=== PATIENT | female | born 1980 | race Caucasian/White ===

== ENCOUNTER → 2018-05-04 | Outpatient (CLI) | payer MEDICARE, MEDICAID ==
[~2018-05-04] MED LIST: CHLO500T2 PO; FERR-57 PO; GBPN300C PO; IBP600T1 PO; IBUP-30 PO; LEVO750T6 PO; MELO7.5T PO; OXYC-12 PO; PRM25T GT; PRM25T PO; [UNRECOGNIZED DRUG - OTHER]; mobic PO
--- NOTE | 2018-05-04 13:01 | Diagnostic Imaging Report ---
PROCEDURE: MRI lumbar spine. TECHNIQUE: Multiplanar, multisequence MRI of the lumbar spine was performed without contrast. INDICATION: Low back pain increasing in severity. Patient has had prior lumbar spine surgery. Comparison is made with prior lumbar spine MRI from 11/06/2014. Curvature and alignment of the lumbar spine is normal. Vertebral body heights are maintained. The marrow signal intensity is unremarkable. No geographic marrow lesion or acute compression fracture is detected. There is some degenerative disc disease at L4-L5 level with disc space narrowing and desiccation, similar to prior exam. The conus is unremarkable at the L1-L2 level. T12-L1: No central canal or neural foraminal stenosis is identified. L1-L2: Unremarkable. L2-L3: Unremarkable. L3-L4: There is some ligamentous thickening and mild annular bulging but no significant central canal or neural foraminal stenosis is identified. L4-L5: Degenerative facet changes are seen. There is annular bulging present. Central canal remains patent. A far lateral broad-based disc bulging on the right side does results in moderate neural foraminal narrowing. Left neural foramen is patent. L5-S1: Ligamentous thickening is present. Central canal is patent. Neural foramina are patent. Paraspinous tissues are unremarkable. IMPRESSION: Lumbar spondylosis. Right neural foraminal narrowing at L4-L5 level is seen, as described above. Overall appearance of the lumbar spine is very similar to the exam from 2015. Dictated by: Dictated on workstation # [id number]
== END ==
LOC: RAD 11:20
PROVIDERS: ATTEND Neurological Surgery
DX: M51.16 Intervertebral disc disorders with radiculopathy, lumbar region (principal); M47.26 Other spondylosis with radiculopathy, lumbar region; M99.73 Connective tissue and disc stenosis of intervertebral foramina of lumbar region
CPT/HCPCS: 72148

== ENCOUNTER → 2018-07-19 | Outpatient (CLI) | payer MEDICARE, MEDICAID ==
--- NOTE | 2018-07-19 13:53 | Diagnostic Imaging Report ---
EXAMINATION: Ultrasound of the right upper extremity, non-vascular. INDICATION: Subcutaneous nodule. COMPARISON: There are no prior studies available for comparison. FINDINGS: Reportedly, the patient has a palpable abnormality in the region of the right biceps. In this area, there is a suggestion of a 4.7 x 2.0 x 5.2 cm area of slightly altered echogenicity. I am not certain if this is related to a discrete abnormality or whether this is merely part of the biceps musculature. There is no increased vascularity in this area to suggest an inflammatory/infectious process or a neoplastic mass. If clinical concern regarding an underlying abnormality persists and further imaging is desired, then MRI would be recommended. IMPRESSION: There is a suggestion of a 4.7 x 2.0 x 5.2 cm area of altered echogenicity in the region of the patient's palpable mass. Considerations and recommendations as above. Dictated by: Dictated on workstation # [id number]
== END ==
LOC: RAD 11:15
PROVIDERS: ATTEND Nurse Practitioner Family
DX: R22.0 Localized swelling, mass and lump, head (principal)
CPT/HCPCS: 76881

== ENCOUNTER 2019-04-19 10:03 | Day surgery (SDC) | payer MEDICARE ==
[2019-04-19] VITALS (18 sets, daily range): BP systolic 94–172; BP diastolic 55–79
[~2019-04-19] VITALS: Ht 165.1 cm; Wt 93.4 kg
--- OUTSIDE RECORDS SUMMARY | 2019-04-19 10:20 | XMS REPORT | Clinical Summary ---
Author Author [facility] Organization [facility] Address Unknown Phone Unavailable Care Team Providers Care Wedger Name Role Phone Chris Enriquez Unavailable Unavailable Fantasma Kirkland MD Unavailable Josefina Mcmahan MD Unavailable Unavailable Fantasma Dixon DIRECTOR CONSUMER PCP Source Comments Some departments are not documenting in the electronic medical record. If you d o not see the information that you expected, contact Release of Information in [facility] [employer] Information Management department at [phone] for further assistan ce in locating additional records.[facility] Allergies Comments Active Allergy Reactions Severity Noted Date Latex RASH, EDEMA Medium 12/20/2015 Medications End Date Status Medication Sig Dispensed Refills Start Date Active levothyroxine (SYNTHROID) Take 112 mcg 0 25 mcg tablet by mouth daily 30 minutes before breakfast. Active gabapentin (NEURONTIN) Take 1 Tab by 150 Tab 5 600 mg tablet mouth four 6 times daily. 1 cap po tid and 2 cap po qhs Active lidocaine (LIDODERM) 5 % Apply 1 Patch 0 topical patch topically to affected area every 24 hours. Apply patch for 12 hours, then remove for 12 hours before repeating. Active omeprazole DR(+) Take 20 mg by 0 (PRILOSEC) 20 mg capsule mouth daily before breakfast. Active cholecalciferol (VITAMIN Take 1,000 0 D-3) 1,000 units tablet Units by mouth daily. Active senna/docusate Take 1 Tab by 0 (SENOKOT-S) 8.6/50 mg mouth twice 7 tablet daily. As needed to avoid constipation while on pain medication, may use any of the over the counter bowel medications Active HYDROcodone/acetaminophen Take 1 tablet 0 (NORCO) 5/325 mg tablet by mouth as Needed for Pain Active baclofen (LIORESAL) 10 mg Take 10 mg by 0 tablet mouth three times daily. Active diazePAM (VALIUM) 5 mg Take 1 tablet 2 tablet 0 tabletIndications: by mouth As 8 Chronic low back pain Prescribed with sciatica, sciatica (Deodorizer Operator from laterality unspecified, Rx) for 999 unspecified back pain doses. Take laterality, one tab prior Claustrophobia to MRI and one tab on arrival for MRI. Active promethazine (PHENERGAN) Take 25 mg by 0 25 mg tablet mouth every 6 hours as needed for Nausea or Vomiting. 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 L ast Assessment & Plan: - Encourgaed for elbow protection. - OT evaluation. Right leg pain 12/20/2015 Overview: - Right leg pain and numbness from lower back down to toes. She had lots of give away weakness. Her right leg weakness can be secondary from pain. She had L4-L5 laminectomy in 03/2015. Sensory changes in her right leg but no increase in reflexes. - MRI L Spine on 07/19: Prior L4-L5 laminectomy with mild right neuroforaminal stenosis and no significant central spinal stenosis. Otherwise, no high-grade stenosis identified. Last Assessment & Plan: - Neurosurgery referral for further eval. - Will increase gabapentin as mentioned. - continue physical therapy for gait and balance. - If needed, will consider referral to our pain clinic. Neck and shoulder pain 12/20/2015 Overview: - She has neck pain radiating in both of her arms. Associated with numbness in lateral aspect of arm, forearm and in last two fingers. - EMG/NCS 03/19: cervical radiculopathy, worse on C6. - MRI 07/19: showed C6-C7 left inferior paracentral disc extrusion, abutting the left C7 nerve in towards the neural foramen, and extending into the left neural foramina resulting in significant left foraminal stenosis. Last Assessment & Plan: - Neurosurgery evaluation - Increase Gabapentin to [phone] from 900 TID - Physical Therapy. Numbness 12/20/2015 Overview: - She reports numbness in both shoulders goes down to T4 level on the back and chest. - No pain on chest. L ast Assessment & Plan: - continue to monitor for now. Cervicogenic headache 12/20/2015 Overview: She gets daily occipital headaches along with neck muscle tightness. L ast Assessment & Plan: - Management of cervical radiculopathy as above which is contributing to her headache as well. Fall 12/20/2015 Overview: She reports falling at home at least twice a week and not using any cane or walker. She has difficulty maintaining her gait and balance. L ast Assessment & Plan: Her falls can be secondary to her pain vs neuropathic changes vs combination of both. - Will start with work as mentioned above. - Physical therapy referral for gait, balance and strength training. Encounters Care Team Description Date Type Specialty Thien Ma DO Weakness of both upper extremities (Primary Dx); Bilateral leg weakness; Urinary incontinence, unspecified type; Cervicalgia; Chronic midline low back pain with bilateral sciatica 03/20/2019 Orders Only Neurology Thien Ma DO Bilateral arm weakness (Primary Dx); Bilateral leg weakness; Urinary incontinence, unspecified type; Cervicalgia; Chronic midline low back pain with bilateral sciatica 02/06/2019 Office Visit Neurology from Last 3 Months Family History Relation Name Status Comments Brother Alive Daughter Alive Daughter Alive Father Alive Mother Alive Sister Alive Social History Date Tobacco Use Types Packs/Day Years Used Quit: 10/04/2016 Former Smoker Cigarettes 1 15 Smokeless Tobacco: Never Used Drinks/Week oz/Week Comments Alcohol Use 0 Standard drinks or equivalent 0.0 No Hx Never Alcohol Habits Answer Date Recorded How often do you have a drink containing alcohol? Never 02/06/2019 How many drinks containing alcohol do you have on Not asked a typical day when you are drinking? How often do you have six or more drinks on one Not asked occasion? Sex Assigned at Date Recorded Not on file Industry Job Start Date Occupation Not on file Not on file Not on file Travel End Travel History Travel Start No recent travel history available. Last Filed Vital Signs Reading Time Taken Comments Vital Sign 125/45 02/06/2019 9:22 AM CDT Blood Pressure 81 02/06/2019 9:22 AM CDT Pulse 36.8 C (98.2 F) 02/06/2019 9:22 AM CDT Temperature 16 02/06/2019 9:22 AM CDT Respiratory Rate 97% 02/06/2019 9:22 AM CDT Oxygen Saturation - - Inhaled Oxygen Concentration 90.7 kg (200 lb) 02/06/2019 9:22 AM CDT Weight 165.1 cm (5' 5") 02/06/2019 9:22 AM CDT Height 33.28 02/06/2019 9:22 AM CDT Body Mass Index Plan of Treatment Health Maintenance Due Date Last Done Comments PHYSICAL (COMPREHENSIVE) 01/14/1987 EXAM HIV SCREENING 01/14/1995 DTAP/TDAP VACCINES (1 - 01/14/1998 Tdap) CERVICAL CANCER SCREENING 01/14/2010 INFLUENZA VACCINE 07/04/2019 Implants Device Identifier Shelf Expiration Date Model / Serial / Lot Implanted Type Area Manufactur er 11/03/2019 700-010 / [id number] / [id number] I-Factor Bone Graft Putty 1cc N/A: Spine [employer] Implanted: Qty: 1 on 01/04/2017 by [employer] Matti Gibbons MD at [facility] [id number] / [id number] / [id number] Matisse Acif Cage Peek [id number] 6deg N/A: Spine AccelSpine H6mm Cervical Implanted: Qty: 1 on 01/04/2017 by Matti Gibbons MD at [facility] [id number] / [id number] / [id number] Plate Cervical Van [place]ogh 1 Level, N/A: Spine AccelSpine 12mm Cervical Implanted: Qty: 1 on 01/04/2017 by Matti Gibbons MD at [facility] [id number] / [id number] / [id number] Screw Va Self Tapping [place]ogh 4.0 N/A: Spine AccelSpine X L12mm Cervical Implanted: Qty: 4 on 01/04/2017 by Matti Gibbons MD at [facility] Results Not on filefrom Last 3 Months Insurance Type Payer Benefit Subscriber ID Effective Phone Address Plan / Dates Group Medicare MEDICARE MEDICARE xxxxxxxxxxx 2017-P PART A AND resent B [place] 2019-P [place], [place] Advance Directives 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 needed
--- OUTSIDE RECORDS SUMMARY | 2019-04-19 10:20 | XMS REPORT | Encounter Summary ---
Author Author [facility] Organization [facility] Address Unknown Phone Unavailable Care Team Providers Care Ophthalmic Technician Name Role Phone Chris Enriquez Unavailable Unavailable Fantasma Kirkland MD Unavailable Josefina Mcmahan MD Unavailable Unavailable Fantasma Dixon ELECTROSLAG WELDING MACHINE OPERATOR PCP Reason for Referral * Pain Authorization (Routine) Referred By Contact Referred To Contact Status Reason Specialty Diagnoses / Procedures Thien Ma, [address] [facility] [place] [address] [facility] Neurology Cl [address] [address] Closed Neurology Diagnoses Weakness of both upper extremities Bilateral leg weakness Urinary incontinence, unspecified type Cervicalgia Chronic midline low back pain with bilateral sciatica P rocedures SPINE EMG PROCEDURE Encounter Details Care Team Description Date Type Department Thien Ma DO [address] [facility] [place] [address] [phone] Weakness of both upper extremities (Primary Dx); Bilateral leg weakness; Urinary incontinence, unspecified type; Cervicalgia; Chronic midline low back pain with bilateral sciatica 03/20/2019 Orders Only [facility] [address] [address] Social History Date Tobacco Use Types Packs/Day [...] Travel Start No recent travel history available. documented as of this encounter Functional Status Date of Assessment Functional Status Response 12/28/2017 Does the patient have a hearing impairment: No 12/28/2017 Does the patient have a visual impairment: Yes 12/28/2017 Does the patient have impaired ambulation: Yes 12/28/2017 Does the patient have an activity of daily living No (ADL) impairment: 12/28/2017 Does the patient have an instrumental activity of No daily living (IADL) impairment: Date of Assessment Cognitive Status Response 12/28/2017 Does the patient have a cognitive impairment: No documented as of this encounter Plan of Treatment Order Schedule Name Type Priority Associated Diagnoses Expected: 03/20/2019 (Approximate), Expires: 03/20/2020 SPINE EMG PROCEDURE Procedures Routine Weakness of both upper extremities Bilateral leg weakness Urinary incontinence, unspecified type Cervicalgia Chronic midline low back pain with bilateral sciatica documented as of this encounter Visit Diagnoses Diagnosis Weakness of both upper extremities - Primary Bilateral leg weakness Other musculoskeletal symptoms referable to limbs Urinary incontinence, unspecified type Cervicalgia Chronic midline low back pain with bilateral sciatica documented in this encounter
--- OUTSIDE RECORDS SUMMARY | 2019-04-19 10:20 | XMS REPORT | Encounter Summary ---
Author Author [facility] Organization [facility] Address Unknown Phone Unavailable Care Team Providers Care Company Laborer Name Role Phone Chris Enriquez Unavailable Unavailable Fantasma Kirkland MD Unavailable Josefina Mcmahan MD Unavailable Unavailable Fantasma Dixon SUPERVISOR ELECTRIC MOTOR TESTING PCP Reason for Referral * Radiology Services (Routine) Referred By Contact Referred To Contact Status Reason Specialty Diagnoses / Procedures Thien Ma DO [address] [facility] [place] [address] New Request Radiology Diagnoses Bilateral arm weakness Bilateral leg weakness Urinary incontinence, unspecified type Cervicalgia Chronic midline low back pain with bilateral sciatica P rocedures MRI L-SPINE WO CONTRAST * Radiology Services (Routine) Referred By Contact Referred To Contact Status Reason Specialty Diagnoses / Procedures Thien Ma DO [address] [facility] [place] [address] [facility] [address] [place] [address] No Auth Needed Radiology Diagnoses Bilateral arm weakness Bilateral leg weakness Urinary incontinence, unspecified type Cervicalgia Chronic midline low back pain with bilateral sciatica P rocedures MRI T-SPINE WO CONTRAST CHG MRI SPINAL CANAL LUMBAR W/O CONTRAST MATERIAL * Radiology Services (Routine) Referred By Contact Referred To Contact Status Reason Specialty Diagnoses / Procedures Thien Ma, [address] [facility] [place] [address] [facility] Mri [address] [place] [address] [place] [address] No Auth Needed Radiology Diagnoses Bilateral arm weakness Bilateral leg weakness Urinary incontinence, unspecified type Cervicalgia Chronic midline low back pain with bilateral sciatica P rocedures MRI C-SPINE WO CONTRAST * Consult, Test & Treat (Routine) Referred By Contact Referred To Contact Status Reason Specialty Diagnoses / Procedures Thien Ma DO [address] [facility] [place] [address] [facility] [address] [address] No Auth Needed Specialty Services Anesthesia Pain Diagnoses Required Bilateral arm weakness Bilateral leg weakness Urinary incontinence, unspecified type Cervicalgia Chronic midline low back pain with bilateral sciatica * Consult, Test & Treat (Routine) Referred By Contact Referred To Contact Status Reason Specialty Diagnoses / Procedures Thien Ma DO [address] [facility] [place] [address] [facility] [address] [facility] Level [address] [place] [address] Closed Specialty Services Urology Diagnoses Required Bilateral arm weakness Bilateral leg weakness Urinary incontinence, unspecified type Cervicalgia Chronic midline low back pain with bilateral sciatica * Pain Authorization (Routine) Referred By Contact Referred To Contact Status Reason Specialty Diagnoses / Procedures Thien Ma, [address] [facility] [place] [address] [facility] [address] [address] No Auth Needed Neurology Diagnoses Bilateral arm weakness Bilateral leg weakness Urinary incontinence, unspecified type Cervicalgia Chronic midline low back pain with bilateral sciatica P rocedures SPINE EMG PROCEDURE Reason for Visit * Reason Comments Back Pain radiates to BLE Numbness in BLE Weakness in BLE/falls Encounter Details Care Team Description Date Type Department Thien Ma, [address] [facility] [place] [address] [phone] Bilateral arm weakness (Primary Dx); Bilateral leg weakness; Urinary incontinence, unspecified type; Cervicalgia; Chronic midline low back pain with bilateral sciatica 02/06/2019 Office Visit [facility] [address] [address] Social History Date Tobacco Use Types Packs/Day [...] history available. documented as of this encounter Last Filed Vital Signs Reading Time Taken [...] 02/06/2019 9:22 AM CDT Body Mass Index documented in this encounter Functional Status Date of Assessment [...] impairment: No documented as of this encounter Patient Instructions * Patient Instructions* Ekaterina Berger RN - 02/06/2019 8:45 AM CDT Preparing for your exam: ? Please shower/bathe prior to your exam. Do not apply any creams, lotions or o ils to your skin after showering/bathing. ? Eat a normal meal prior to your exam. ? Time your pain medication so that you can take a dose prior to your exam. ? After the exam, you can resume all normal activities including driving. ? Please notify our office if you have a pacemaker or other implanted device. ? Please notify the doctor performing the test if you are taking Coumadin (warfa rin), Plavix, Aspirin or blood thinning medications, but do not stop any of thes e medications prior to the study unless specifically instructed. ? While a family, friend or caregiver may accompany you to the exam; they will n ot be permitted in the EMG room during testing. What you should know about your EMG and NCS: 1) Why are you having an EMG/NCS? Having an EMG/NCS performed can give further explanation to your doctor as to why you are experiencing; numbness, tingling, weakness or muscle cramping. The doctor performing your exam will determine whi ch test to do. 2) What does NCS show? NCS shows how well electrical signals are traveling to a nerve. This is done by applying small electrical shocks to the nerve and recor ding how the nerve works. The shocks cause a quick, mild tingling feeling. The doctor may test several nerves. 3) What happens during a needle EMG? A small, thin needle is put in several mus cles to see if there are any problems. There may be a small amount of pain when the needle is placed. A new needle is used with every patient. The doctor will only test the muscles necessary to decide what is wrong. The doctor will look & listen to the electronic signals traveling from the needle to the EMG machine. The doctor will then evaluate the results & report the findings to your referring doctor. 4) How long will the EMG/NCS take? When do I get my results? Plan roughly 45-60 min. for the exam. There are no lasting side effects from these exams. [facility] will receive the test results. Therefore, you will be contactin g his/hers office to discuss the results & your plan of care. The doctor will answer any additional questions you may have at the time of the exam. Thank you! documented in this encounter Progress Notes * Thien Ma, DO - 02/06/2019 8:45 AM CDT Date of Service: 02/06/2019 Subjective: Nasreen Silvestre is a 39 y.o. female. History of Present Illness She is a 39-year-old right-handed female referred by Dr. Matti Gibbons and Dr. Rush Dixon for neurologic evaluation for multiple complaints. She previously saw the neurology department in the residency clinic. She was la st seen by Dr. Enriquez in August 2016. She has a history of cervical fusion in 2015 and lumbar laminectomy in 2014. Pritesh segura claims to have been told by Dr. Gibbons that surgical intervention was unlikely to be helpful for her complaints. She describes a 5-year approximate history of low back and bilateral leg pain. Over the last 3 weeks it has been worse where there are times she feels she justin ot move her legs at night. This is worse if she is working throughout the day. It is equal in both legs. Most the time "I can just push myself through it". 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 Pain occurs sharply in the low back radiating to both h ips and down laterally into the legs and into the feet. This comes and goes. I s constant at night. There is numbness associated with it that she says is "ext john in the legs". The feet burn. There is no numbness in the chest abdomen or back reported. Pain grades 10/10 at worst. 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 She does no heavy lifting. She is readily able to sit and stand and accommodations have been made for her to do her job. She works about a 5-hour shift after which she feels pain in the back and legs worst in the evening. She also has had a 5-year or more history of chronic neck pain. It is worse wit h cough. She describes a cattle prod shooting down to both shoulders. Involves the arms and fingers of both hands particular the first and third fingers. 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 She has a hard time opening cans. Numbness and tingling happens in both arms n onspecifically down to the hands. She says also that there has been urinary incontinence since childhood. She den ies bowel incontinence. It happens about once or twice per day and she wears de pends. It has not changed over the past few years. She does not see a urologis t now. She had EMG and nerve conduction testing in 2016. It showed C5-C6 right cervica l radiculopathy. No radiculopathy or other abnormal neuromuscular process in th e leg was identified. She has done a lot of physical therapy. Last therapy was a year and a half ago. She continues to do the exercises. She tried gabapentin, lidocaine patch, baclofen, amitriptyline, Cymbalta and tra madol. Tramadol did not help. Cymbalta did not help. Amitriptyline led to nig ht terrors. Lumbar MRI from May 2018 from [facility] in [facility] read as lumbar spondylosis with right foraminal narrowing at L4-L5. Overall lumbar spin e similar to exam from 2015. Review of Systems Constitutional: Negative. HENT: Negative. Eyes: Negative. Respiratory: Negative. Cardiovascular: Positive for leg swelling. Gastrointestinal: Negative. Endocrine: Negative. Genitourinary: Negative. Musculoskeletal: Positive for arthralgias, back pain, gait problem, neck pain an d neck stiffness. Skin: Negative. Allergic/Immunologic: Negative. Neurological: Positive for numbness. Hematological: Negative. Psychiatric/Behavioral: Negative. Chief Complaint: Chief Complaint Patient presents with Back Pain radiates to BLE Numbness in BLE Weakness in BLE/falls Past Medical History: Medical History: Diagnosis Date GERD (gastroesophageal reflux disease) HTN (hypertension) in the past, no longer on meds Hypothyroid Surgical History: Surgical History: Procedure Laterality Date CERVICAL FUSION N/A 01/04/2017 ANTERIOR CERVICAL 6-7 FUSION performed by Matti Gibbons MD at [facility]/Periop APPENDECTOMY SECTION x2 CHOLECYSTECTOMY DILATION AND CURETTAGE x2 HX REMY AND BSO TONSILLECTOMY Social History: Social History Tobacco Use Smoking status: Former Smoker Packs/day: 1.00 Years: 15.00 Pack years: 15.00 Types: Cigarettes Last attempt to quit: 10/04/2016 Years since quittin.3 Smokeless tobacco: Never Used Substance Use Topics Alcohol use: Never Alcohol/week: 0.0 oz Frequency: Never Comment: No Hx Drug use: No Comment: No Hx Family History: Family History Family history unknown: Yes Allergies: Allergies Allergen Reactions Latex RASH and EDEMA Objective: baclofen (LIORESAL) 10 mg tablet Take 10 mg by mouth three times daily. cholecalciferol (VITAMIN D-3) 1,000 units tablet Take 1,000 Units by mouth d aily. diazePAM (VALIUM) 5 mg tablet Take 1 tablet by mouth As Prescribed (Plater Barrel from Rx) for 999 doses. Take one tab prior to MRI and one tab on arrival for MRI . gabapentin (NEURONTIN) 600 mg tablet Take 1 Tab by mouth four times daily. 1 cap po tid and 2 cap po qhs (Patient taking differently: Take 1 and 1/2 tablets by mouth twice daily and take 2 tablets at bedtime) HYDROcodone/acetaminophen (NORCO) 5/325 mg tablet Take 1 tablet by mouth as Needed for Pain levothyroxine (SYNTHROID) 25 mcg tablet Take 112 mcg by mouth daily 30 minut es before breakfast. lidocaine (LIDODERM) 5 % topical patch Apply 1 Patch topically to affected a edin every 24 hours. Apply patch for 12 hours, then remove for 12 hours before re peating. omeprazole DR(+) (PRILOSEC) 20 mg capsule Take 20 mg by mouth daily before b reakfast. promethazine (PHENERGAN) 25 mg tablet Take 25 mg by mouth every 6 hours as n eeded for Nausea or Vomiting. senna/docusate (SENOKOT-S) 8.6/50 mg tablet Take 1 Tab by mouth twice daily. As needed to avoid constipation while on pain medication, may use any of the ov er the counter bowel medications Vitals: 02/06/19 0922 BP: 125/45 Pulse: 81 Resp: 16 Temp: 36.8 C (98.2 F) TempSrc: Oral SpO2: 97% Weight: 90.7 kg (200 lb) Height: 165.1 cm (65") Body mass index is 33.28 kg/m. Female Opioid Risk Score: 1 (02/06/2019 9:00 AM) Opioid Risk Category: Low Risk (02/06/2019 9:00 AM) Is a controlled substance agreement on file? Not Applicable Physical Exam General: MG/WN/WD, ASA, affect, demeanor, attention and memory appropriate, calm , cooperative, follows commands, overall functional pattern to examination HEENT: NC/AT Cardiac: RRR without murmur Neck: supple Fundoscopy: clear, sharp disc margins, no papilledema Speech: fluent, no dysarthria or aphasia Mental status: Alert, oriented x 4, NAD CN: VFF without cut/hemianopsia, PERRL, EOMI without restriction or nystagmus, f acial sensation symmetric (V1-V3) to LT bilaterally, No facial droop or ptosis, hearing equal to FR, palatal rise symmetric, cough response intact and strong, s houlder shrug symmetric, tongue midline Motor: tone normal, no rigidity or spasticity in 4 limbs, no pronator drift of u pper extremities Strength: diffusely poor patient effort with prominent diffuse giveaway weakness - 01/05 SA/EF/EE/WE/WF/FA/HF/KE/DF/PF No involuntary movements, no tremor Sensation: PP globally decreased LLE comp. to right LE, symm in UEs, vibration 7 sec right GT, 12 sec left GT, possible T9/T10 level to PP in back DTRs, 2/2 in BR/B 1/1P/A, downgoing plantar reflexes bilaterally Coordination: normal FTN without dysmetria, normal finger tap, coordination norm al Gait: wide based, slow, cautious, functional, antalgic, no ataxia Assessment and Plan: 1. Bilateral upper and lower extremity weakness 2. Cervicalgia with question of cervical radiculopathy 3. Lumbago with bilateral leg pain/sciatica 4. Chronic urinary incontinence Plan: 1. She has a very functional and effort dependent/giveaway pattern exam. I am unsure to what extent neurological issues are present. 2. I suspect chronic pain issues are contributing to her overall presentation. 3. Because of incontinence weakness and question of sensory level, I ordered MR I cervical, thoracic and lumbar spine without LAURA. 4. I will do EMG/NCS BUE/BLE 5. Refer to urology for chronic urinary incontinence 6. Refer to anesthesia pain management. Chronic medical pain management may be necessary. 7. I considered group therapy for her but she claims to have hours away and reanna l not be able to participate here at spine center in [place]. 8. No change of medicine now. Continue gabapentin 900/900/1200 9. Check B12, MMA, TSH, CK, CBC and CMP 10. If neurologic change, instructed to call me straight away. Majority of her issues are chronic. She has had some intermittent worsening of leg strength dee bjectively over the past few weeks at this changes, she will let me know TONYA. 11. RTC next available EMG. Routine follow-up in about 3 to 4 months or as nee ded sooner Today, approximately 45 minutes was spent with her. Majority (more than 50%) wa s spent on patient diagnosis, discussion, education and answering questions.. documented in this encounter Plan of Treatment Order Schedule Name Type Priority Associated Diagnoses Ordered: 02/06/2019 SPINE EMG PROCEDURE Procedures Routine Bilateral arm weakness Bilateral leg weakness Urinary incontinence, unspecified type Cervicalgia Chronic midline low back pain with bilateral sciatica Expected: 02/06/2019 (Approximate), Expires: 02/07/2020 MRI C-SPINE WO CONTRAST Imaging Routine Bilateral arm weakness Bilateral leg weakness Urinary incontinence, unspecified type Cervicalgia Chronic midline low back pain with bilateral sciatica Expected: 02/06/2019 (Approximate), Expires: 02/07/2020 MRI T-SPINE WO CONTRAST Imaging Routine Bilateral arm weakness Bilateral leg weakness Urinary incontinence, unspecified type Cervicalgia Chronic midline low back pain with bilateral sciatica Expected: 02/06/2019 (Approximate), Expires: 02/07/2020 MRI L-SPINE WO CONTRAST Imaging Routine Bilateral arm weakness Bilateral leg weakness Urinary incontinence, unspecified type Cervicalgia Chronic midline low back pain with bilateral sciatica Expected: 02/06/2019 (Approximate), Expires: 02/07/2020 METHYLMALONIC ACID QUANT Lab Routine Bilateral arm weakness Bilateral leg weakness Urinary incontinence, unspecified type Cervicalgia Chronic midline low back pain with bilateral sciatica Expected: 02/06/2019 (Approximate), Expires: 02/07/2020 CBC Lab Routine Bilateral arm weakness Bilateral leg weakness Urinary incontinence, unspecified type Cervicalgia Chronic midline low back pain with bilateral sciatica Expected: 02/06/2019 (Approximate), Expires: 02/07/2020 COMPREHENSIVE METABOLIC Lab Routine Bilateral arm weakness PANEL Bilateral leg weakness Urinary incontinence, unspecified type Cervicalgia Chronic midline low back pain with bilateral sciatica Expected: 02/06/2019 (Approximate), Expires: 02/07/2020 VITAMIN B12 Lab Routine Bilateral arm weakness Bilateral leg weakness Urinary incontinence, unspecified type Cervicalgia Chronic midline low back pain with bilateral sciatica Expected: 02/06/2019 (Approximate), Expires: 02/07/2020 TSH WITH FREE T4 REFLEX Lab Routine Bilateral arm weakness Bilateral leg weakness Urinary incontinence, unspecified type Cervicalgia Chronic midline low back pain with bilateral sciatica Expected: 02/06/2019 (Approximate), Expires: 02/07/2020 CREATINE KINASE-CPK Lab Routine Bilateral arm weakness Bilateral leg weakness Urinary incontinence, unspecified type Cervicalgia Chronic midline low back pain with bilateral sciatica Order Schedule Name Type Priority Associated Diagnoses Ordered: 02/06/2019 AMB REFERRAL TO UROLOGY Outpatient Routine Bilateral arm weakness Referral Bilateral leg weakness Urinary incontinence, unspecified type Cervicalgia Chronic midline low back pain with bilateral sciatica Ordered: 02/06/2019 AMB REFERRAL TO PAIN Outpatient Routine Bilateral arm weakness CLINIC Referral Bilateral leg weakness Urinary incontinence, unspecified type Cervicalgia Chronic midline low back pain with bilateral sciatica documented as of this encounter Visit Diagnoses Diagnosis Bilateral arm weakness - Primary Other musculoskeletal symptoms referable to limbs Bilateral leg weakness Other musculoskeletal symptoms referable to limbs Urinary incontinence, unspecified type Cervicalgia Chronic midline low back pain with bilateral sciatica documented in this encounter
--- OUTSIDE RECORDS SUMMARY | 2019-04-19 10:21 | XMS REPORT ---
Author Author HILDA WOLF [facility] Address [address] [place] [address] Care Team Providers Care Caddy Name Role Phone HILDA WOLF Unavailable PROBLEMS Type Condition ICD9-CM Code [id number] Code Onset Dates Condition Status SNOMED Code Problem OCD (obsessive compulsive disorder) F42 Active 905232539 Problem Herniated nucleus pulposus M51.9 Active 79984506 Problem Acquired hypothyroidism E03.9 Active 815416046 Problem Anxiety F41.9 Active 61982943 Problem Cervicalgia M54.2 Active 62894891 Problem Moderate episode of recurrent major depressive disorder F33.1 Active 709967798 Problem Plantar fasciitis M72.2 Active 332986942 Problem Polyneuropathy G62.9 Active 20507477 ALLERGIES No Information ENCOUNTERS Encounter Location Date Diagnosis [id number] [place] [address] [id number] Mar, Polyneuropathy G62.9 ; Herniated nucleus pulposus M51.9 ; Moderate episode of recurrent major depressive disorder F33.1 and Acquired hypothyroidism E03.[address] [place] [address] [id number] Mar, Polyneuropathy G62.[address] [place] [address] [id number] February, Polyneuropathy G62.9 and Acquired hypothyroidism E03.[address] [place] [address] [id number] February, Cervicalgia M54.2 and Herniated nucleus pulposus M51.[address] [place] [address] [id number] February, [address] [place] [address] [id number] Jan, Polyneuropathy G62.9 [place] [id number] [place] [address] [id number] Dec, Herniated nucleus pulposus M51.9 [place] [id number] [place] [address] [id number] Dec, Long-term use of high-risk medication Z79.899 and Lumbar radiculopathy M54.16 [place] [id number] [place] [address] [id number] Nov, Polyneuropathy G62.9 ; Dermatitis L30.9 and Herniated nucleus pulposus M51.9 [place] [id number] [place] [address] [id number] Nov, [address] [id number] Oct, Herniated nucleus pulposus M51.9 [place] [id number] [place] [address] [id number] Oct, [address] [id number] Sep, [place] [id number] [place] [address] [id number] Sep, Herniated nucleus pulposus M51.9 and Acute cystitis with hematuria N30.01 [place] [id number] [place] [address] [id number] Aug, Herniated nucleus pulposus M51.9 [place] [id number] [place] [address] [id number] Jul, [place] [id number] [place] [address] [id number] Jul, Mass of right upper extremity R22.31 and Foreign body in right foot, initial encounter S90.851A [address] [id number] Jul, Foreign body in right foot, initial encounter S90.851A [place] [id number] [place] [address] [id number] Jul, Acquired hypothyroidism E03.[address] [id number] Jul, Moderate episode of recurrent major depressive disorder F33.1 ; Herniated nucleus pulposus M51.9 ; Cervicalgia M54.2 ; Polyneuropathy G62.9 and Acquired hypothyroidism E03.9 [facility] [id number] [place] [address] [id number] Jun, [facility] [address] [id number] Jun, Herniated nucleus pulposus M51.9 [facility] [id number] [place] [address] [id number] May, Herniated nucleus pulposus M51.9 [place] [address] [id number] Apr, Herniated nucleus pulposus M51.9 [place] [id number] [place] [address] [id number] Apr, [place] [address] [id number] Apr, Acquired hypothyroidism E03.9 [facility] [id number] [place] [address] [id number] Apr, Acquired hypothyroidism E03.9 [place] [address] [id number] Apr, [facility] [id number] [place] [address] [id number] Mar, Herniated nucleus pulposus M51.9 and Nodule, subcutaneous R22.9 [place] [id number] [place] [address] [id number] Mar, Herniated nucleus pulposus M51.9 [place] [id number] [place] [address] [id number] February, Herniated nucleus pulposus M51.9 ; Polyneuropathy G62.9 and Anxiety F41.9 [facility] [id number] [place] [address] [id number] Jan, Herniated nucleus pulposus M51.9 ; Moderate episode of recurrent major depressive disorder F33.1 and Acquired hypothyroidism E03.9 [place] [address] [address] [id number] [id number] Dec, Herniated nucleus pulposus M51.9 [facility] [id number] [place] [address] [id number] Nov, Cervicalgia M54.2 and Herniated nucleus pulposus M51.9 [facility] [id number] [place] [id number] Oct, Herniated nucleus pulposus M51.9 and OCD (obsessive compulsive disorder) F42 [facility] [address] [id number] [place] [id number] Oct, Herniated nucleus pulposus M51.9 [facility] [id number] [place] [address] [id number] Aug, Acquired hypothyroidism E03.9 [facility] [id number] [place] [address] [id number] Aug, Herniated nucleus pulposus M51.9 and Acquired hypothyroidism E03.9 [facility] [address] [id number] [address] Aug, [facility] [id number] [place] [address] [id number] Jul, Herniated nucleus pulposus M51.9 ; OCD (obsessive compulsive disorder) F42 and Pain of right upper extremity M79.601 [facility] [id number] [place] [id number] Jul, Anxiety F41.9 [facility] [id number] [place] [id number] Jul, [facility] [id number] [place] [id number] Jun, OCD (obsessive compulsive disorder) F42 ; Herniated nucleus pulposus M51.9 and Acute cystitis with hematuria N30.01 [facility] [id number] [place] [id number] 13 Jun, 2017 Anxiety F41.9 [facility] [id number] [place] [id number] 07 Jun, 2017 [facility] [id number] [place] [address] [id number] May, Acquired hypothyroidism E03.9 [facility] [id number] [place] [address] [id number] May, Polyneuropathy G62.9 ; OCD (obsessive compulsive disorder) F42 ; Herniated nucleus pulposus M51.9 ; Screening for lipid disorders Z13.220 ; Long-term use of high- risk medication Z79.899 and Major depressive disorder, recurrent, moderate F33.1 [facility] [address] [id number] [id number] May, Dental examination Z01.20 [facility] [id number] [place] [address] [id number] May, Herniated nucleus pulposus M51.9 [facility] [id number] [place] [address] [id number] May, Herniated nucleus pulposus M51.9 and Anxiety F41.9 [facility] [id number] [place] [address] [id number] Apr, Herniated nucleus pulposus M51.9 and Cervicalgia M54.2 [facility] [id number] [place] [address] [id number] Apr, Moderate episode of recurrent major depressive disorder F33.1 [facility] [id number] [place] [address] [id number] Apr, Herniated nucleus pulposus M51.9 [facility] [id number] [place] [address] [id number] Apr, Herniated nucleus pulposus M51.9 [facility] [id number] [place] [address] [id number] Mar, Moderate episode of recurrent major depressive disorder F33.1 [facility] [id number] [place] [address] [id number] Mar, Anxiety F41.9 [facility] [address] [id number] [place] [address] [id number] Mar, [facility] [id number] [place] [address] [id number] Mar, Herniated nucleus pulposus M51.9 and Cervicalgia M54.2 [facility] [id number] [place] [address] [id number] February, Acquired hypothyroidism E03.9 [facility] [id number] [place] [address] [id number] February, Polyneuropathy G62.9 ; Herniated nucleus pulposus M51.9 ; Cervicalgia M54.2 and Acquired hypothyroidism E03.9 [facility] [id number] [place] [address] [id number] Jan, [place] [id number] [place] [address] [id number] Jan, Cervicalgia M54.2 and Moderate episode of recurrent major depressive disorder F33.1 [place] [id number] [place] [address] [id number] Dec, Cervicalgia M54.2 and Herniated nucleus pulposus M51.9 [place] [id number] [place] [address] [id number] Nov, Lymph nodes enlarged R59.9 [address] [place] [address] [id number] Oct, Cervicalgia M54.2 [facility] [address]005[address], [place] [address] Sep, Polyneuropathy G62.[address] [place] [address] [id number] Sep, Cervicalgia M54.2 and Herniated nucleus pulposus M51.9 [address] [place] [address] [id number] Aug, Lumbar radiculopathy M54.16 and Spinal stenosis at L4-L5 level M48.[address] [place] [address] [id number] Aug, Cervicalgia M54.2 and Herniated nucleus pulposus M51.9 [address] [place] [address] [id number] Jul, [address] [place] [address] [id number] Jun, Cervicalgia M54.2 and Herniated nucleus pulposus M51.9 [facility] [id number] [place] [address] [id number] May, Plantar fasciitis M72.2 [facility] [id number] [place] [address] [id number] May, [place] [id number] [place] [address] [id number] Apr, Screening for lipid disorders Z13.220 ; Long-term use of high-risk medication Z79.899 and Major depressive disorder, recurrent, moderate F33.1 [facility] [id number] [place] [address] [id number] Apr, [place] [id number] [place] [address] [id number] Mar, Herniated nucleus pulposus M51.9 and Cervicalgia M54.2 [place] [id number] [place] [address] [id number] Mar, Cervicalgia M54.2 and Herniated nucleus pulposus M51.9 [place] [id number] [place] [address] [id number] February, [place] [id number] [place] [address] [id number] February, Cervicalgia M54.2 and Herniated nucleus pulposus M51.9 [place] [id number] [place] [address] [id number] Dec, Syncope, unspecified syncope type R55 [address] [place] [address] [id number] Dec, Cervicalgia M54.2 ; Herniated nucleus pulposus M51.9 and Moderate episode of recurrent major depressive disorder F33.1 [facility] [id number] [place] [address] [id number] Dec, [place] [id number] [place] [address] [id number] Dec, Herniated nucleus pulposus M51.9 and Cervicalgia M54.2 [facility] [id number] [place] [id number] Nov, [place] [id number] [place] [address] [id number] Nov, Herniated nucleus pulposus M51.9 and OCD (obsessive compulsive disorder) F42 [place] [id number] [place] [address] [id number] Sep, Displacement of intervertebral disc, site unspecified, without myelopathy 722.2 ; Cervicalgia 723.1 and Hypothyroidism, unspecified type E03.9 [facility] [id number] [place] [address] [id number] Sep, [place] [id number] [place] [address] [id number] Jun, Displacement of intervertebral disc, site unspecified, without myelopathy 722.2 and Cervicalgia 723.1 [place] [id number] [place] [address] [id number] Mar, Displacement of intervertebral disc, site unspecified, without myelopathy 722.2 and Shingles 053.9 [facility] [id number] [place] [address] [id number] February, Shingles 053.9 [place] [address] [id number] [place] [address] [id number] February, Displacement of intervertebral disc, site unspecified, without myelopathy 722.2 ; Tension headache 307.81 and Cervicalgia 723.1 [facility] [id number] [place] [address] [id number] February, [address] [place] [address] [id number] February, [place] [id number] [place] [address] [id number] February, [facility] [id number] [place] [address] Jan, [facility] [id number] [place] [address] Jan, [facility] [address] [id number] [place] [id number] Jan, [facility] [place] [facility] [address] [facility] [id number], [place] [address] Jan, [facility] [place] [facility] [address] [facility] [id number], [place] [address] Jan, [facility] [address] [facility] [id number] [place] [id number] Dec, [facility] [place] [facility] [address] [facility] [id number], [place] [address] Dec, [facility] [address] [facility] [id number] [place] [id number] Dec, [facility] [place] [facility] [address]00565[address], [place] [address] Dec, [facility] [address] [place] [id number] [place] [id number] Nov, [facility] [place] [facility] [address]005[address], [place] [address] Nov, [facility] [address] [facility] [id number] [place] [id number] Oct, [facility] [place] [facility] [address]005[address], [place] [address] Oct, [facility] [address] [facility] [id number] [place] [id number] Oct, [facility] [place] [facility] [address] [id number], [place] [address] Oct, [facility] [address] [facility] [id number] [place] [id number] Oct, [facility] [address] [facility] [id number] [place] [id number] Oct, [facility] [place] [facility] [address] [facility] [id number], [place] [address] Oct, [facility] [place] [facility] [address]005[address], [place] [address] Oct, [facility] [address] [id number] [place] [id number] Oct, [facility] [place] [facility] [address] [facility] [id number], [place] [address] Oct, [facility] [address] [facility] [id number] [place] [id number] Oct, [facility] [place] [facility] [address] [facility] [id number], [place] [address] Oct, [facility] [address] [id number] [place] [id number] Sep, [facility] [place] [facility] [address] [facility] [id number], [place] [address] Sep, [facility] [address] [facility] [id number] [place] [id number] Aug, [facility] [place] [facility] [address], [place] [address] Aug, [facility] [place] [facility] [address] [facility] [id number], [place] [address] Aug, [facility] [address] [facility] [id number] [place] [id number] Aug, [facility] [address] [facility] [id number] [place] [id number] Aug, [facility] [place] [facility] [address] [facility] [id number], [place] [address] Aug, [facility] [address] [facility] [id number] [place] [id number] Jul, [facility] [place] [facility] [address] [facility] [id number], [place] [address] Jul, [facility] [address] [facility] [id number] [place] [id number] Jul, [facility] [place] [facility] [address] [facility] [id number], [place] [address] Jul, [facility] [place] [facility] [address] [facility] [id number], [place] [address] Apr, [facility] [address] [id number] [place] [id number] Apr, [facility] [place] [facility] [address] [id number] [place] [address] Apr, [facility] [address] [id number] [place] [id number] Apr, [facility] [place] [facility] [address] [id number] [place] [address] Apr, [facility] [address] [id number] [place] [id number] Mar, [facility] [place] [facility] [address] [id number] [place] [address] Mar, [facility] [address] [id number] [place] [id number] Mar, [facility] [place] [facility] [address] [id number] [place] [address] Mar, [facility] [address] [id number] [place] [id number] February, [facility] [place] [facility] [address] [facility] [id number] [place] [address] February, [facility] [place] [facility] [address] [facility] [id number] [place] [address] February, [facility] [address] [id number] [place] [id number] February, [facility] [place] [facility] [address] [id number] [place] [address] February, [facility] [address] [id number] [place] [id number] February, [facility] [place] [facility] [address] [facility] [id number] [place] [address] February, [facility] [place] [facility] [address] [facility] [id number] [place] [address] Jan, [facility] [place] [facility] [address] [facility] [id number], [place] [address] Jan, [facility] [place] [facility] [address] [id number], [place] [address] Jan, [facility] [address] [facility] [id number] [place] [id number] Jan, [facility] [place] [facility] [address] [facility] [id number], [place] [address] Jan, [facility] [address] [facility] [id number] [place] [id number] Jan, [facility] [place] [facility] [address] [facility] [id number] [place] [address] Jan, [facility] [address] [facility] [id number] [place] [id number] Jan, [facility] [place] [facility] [address] [facility] [id number], [place] [address] Jan, [facility] [place] [facility] [address] [facility] [id number], [place] [address] Jan, [facility] [place] [facility] [address] [facility] [id number], [place] [address] Jan, [facility] [place] [facility] [address] [facility] [id number], [place] [address] Jan, [facility] [address] [facility] [id number] [place] [id number] Jan, [facility] [address] [facility] [id number] [place]SE[place] [id number] Jan, [facility] [place] [facility] [address] [facility] [id number], [place] [address] Jan, [facility] [address] [facility] [id number] [place] [id number] Jan, [facility] [place] [facility] [address] [facility] [id number], [place] [address] Jan, [facility] [address] [facility] [id number] [place] 196941169 Jan, [facility] [place] [facility] [address] [facility] [id number], [place] [address] Jan, [facility] [address] [facility] [id number] [place] [id number] Dec, [facility] [place] [facility] [address] [facility] [id number], [place] [address] Dec, [facility] [address] [facility] [id number] [place]SE[place] [id number] Dec, [facility] [place] [facility] [address] [facility] [id number], [place] [address] Dec, [facility] [address] [facility] [id number] [place] [id number] Dec, [facility] [place] [facility] [address] [facility] [id number], [place] [address] Dec, [facility] [address] [facility] [id number] [place] [id number] Dec, [facility] [place] [facility] [address] [facility] [id number], [place] [address] Dec, [facility] [address] [facility] [id number] [place] [id number] Nov, [facility] [place] [facility] [address] [id number], [place] [address] Nov, [facility] [address] [facility] [id number] [place] [id number] Nov, [facility] [place] [facility] [address] [facility] [id number], [place] [address] Nov, [facility] [address] [facility] [id number], [place] [address] Nov, [facility] [address] [facility] [id number], [place] [address] Nov, [facility] [address] [facility] [id number], [place] [address] Nov, [facility] [address] [facility] [id number], [place] [address] Nov, [facility] [address] [id number] [place] [id number] Oct, [facility] [address] [facility] [id number], [place] [address] Oct, [facility] [address] [facility] [id number], [place] [address] Oct, [facility] [address] [facility] [id number] [place] [id number] Oct, [facility] [address] [facility] [id number], [place] [address] Oct, [facility] [address] [facility] [id number] [place] [id number] Oct, [facility] [id number], [place] [address] Oct, [facility] [address] [facility] [id number] [place] [id number] Aug, [facility] [address] [id number], [place] [address] Aug, [facility] [address] [facility] [id number] [place] [id number] Jul, [facility] [address] [id number], [place] [address] Mar, [facility] [address] [id number] [place] [id number] Mar, [facility] [address] [facility] [id number], [place] [address] Mar, [facility] [address] [id number] [place] [id number] Jan, [facility] [address] [facility] [id number] [place] [id number] Sep, [facility] [address] [facility] [id number], [place] [address] Sep, [facility] [address] [id number] [place] [id number] May, [facility] [address] [facility] [id number] [place] [id number] Apr, [facility] [address] [id number] [place] [id number] Mar, [facility] [address] [id number] [place] [id number] Mar, [facility] [address] [id number] [place] [id number] February, [facility] [address] [id number] [place] [id number] Jan, [facility] [id number] [place] [address] Mar, [facility] [id number] [place] [address] Sep, [facility] [id number] [place] [address] Aug, [facility] [id number] [place] [id number] Aug, [facility] [id number] [place] [id number] Aug, [facility] [id number] [address] Aug, [facility] [id number] [place] [id number] Aug, [facility] [id number] [address] Jul, [facility] [id number] [place] [id number] Apr, IMMUNIZATIONS No Known Immunizations SOCIAL HISTORY Never Assessed REASON FOR VISIT PLAN OF CARE VITAL SIGNS MEDICATIONS No Known Medications RESULTS No Results PROCEDURES No Known procedures INSTRUCTIONS MEDICATIONS ADMINISTERED No Known Medications MEDICAL (GENERAL) HISTORY Type Description Date Medical History cardiovascular disease Medical History uterine fibroids Medical History shingles Medical History TIA -- 2009 Medical History thyroid disorder Medical History seizures Medical History depression Medical History anxiety Medical History chronic back pain Medical History Generalized hyperhidrosis Surgical History tonsillectomy age 14 Surgical History appendectomy 1999 Surgical History cholecystectomy 2007 Surgical History Blood transfusion with hysterectomy 2010 Surgical History dilatation and curettage x 2 1998, 2003 Surgical History hysterectomy, total with bilateral salpingo-oophorectomy (BSO) 2010 Surgical History laminectomy L4-L5 03/2015 Surgical History disc removed between C6-C7-had fusion 01/18 Hospitalization History childbirth, surgeries
--- OUTSIDE RECORDS SUMMARY | 2019-04-19 10:21 | XMS REPORT ---
Author Author HILDA WOLF [facility] Address [address] [place] [address] Care Team Providers Care Claim Examiner Name Role Phone HILDA WOLF Unavailable PROBLEMS Type Condition ICD9-CM Code HJU69-SE Code Onset Dates Condition Status SNOMED Code Problem OCD (obsessive compulsive disorder) F42 Active 771555864 Problem Herniated nucleus pulposus M51.9 Active 49517703 Problem Acquired hypothyroidism E03.9 Active 733532482 Problem Anxiety F41.9 Active 32660405 Problem Cervicalgia M54.2 Active 54625947 Problem Moderate episode of recurrent major depressive disorder F33.1 Active 414078467 Problem Plantar fasciitis M72.2 Active 137488780 Problem Polyneuropathy G62.9 Active 16209218 ALLERGIES No Information ENCOUNTERS Encounter Location Date Diagnosis [id number] [place] [id number] Apr, [address] [id number] Apr, Herniated nucleus pulposus M51.9 [place] [id number] [place] [address] [id number] Mar, Polyneuropathy G62.9 ; Herniated nucleus pulposus M51.9 ; Moderate episode of recurrent major depressive disorder F33.1 and Acquired hypothyroidism E03.[id number] [place] [address] [id number] Mar, Polyneuropathy G62.[address] [id number] February, Polyneuropathy G62.9 and Acquired hypothyroidism E03.9 [address] [place] [address] [id number] February, Cervicalgia M54.2 and Herniated nucleus pulposus M51.9 [place] [id number] [place] [address] [id number] February, [facility] [id number] [place] [address] [id number] Jan, Polyneuropathy G62.9 [facility] [id number] [place] [address] [id number] Dec, Herniated nucleus pulposus M51.9 [place] [id number] [place] [address] [id number] Dec, Long-term use of high-risk medication Z79.899 and Lumbar radiculopathy M54.16 [place] [address] [place] [id number] [place] [address] [id number] Nov, Polyneuropathy G62.9 ; Dermatitis L30.9 and Herniated nucleus pulposus M51.9 [place] [address] [place] [place] [id number] [place] [address] [id number] Nov, [facility] [id number] [place] [address] [id number] Oct, Herniated nucleus pulposus M51.9 [place] [id number] [place] [address] [id number] Oct, [place] [address] [place] [id number] [place] [address] [id number] Sep, [facility] [id number] [place] [address] [id number] Sep, Herniated nucleus pulposus M51.9 and Acute cystitis with hematuria N30.01 [facility] [id number] [place] [address] [id number] Aug, Herniated nucleus pulposus M51.9 [place] [address] [place] [id number] [place] [address] [id number] Jul, [place] [address] [id number] [place] [address] [id number] Jul, Mass of right upper extremity R22.31 and Foreign body in right foot, initial encounter S90.851A [place] [address] [id number] [place] [address] [id number] Jul, Foreign body in right foot, initial encounter S90.851A [facility] [address] [id number] Jul, Acquired hypothyroidism E03.9 [place] [address] [id number] Jul, Moderate episode of recurrent major depressive disorder F33.1 ; Herniated nucleus pulposus M51.9 ; Cervicalgia M54.2 ; Polyneuropathy G62.9 and Acquired hypothyroidism E03.9 [facility] [address] [id number] Jun, [address] [id number] Jun, Herniated nucleus pulposus M51.9 [place] [address] [id number] May, Herniated nucleus pulposus M51.[address] [id number] Apr, Herniated nucleus pulposus M51.9 [place] [address] [id number] [place] [address] [id number] Apr, [place] [address] [id number] Apr, Acquired hypothyroidism E03.9 [place] [address] [id number] [place] [address] [id number] Apr, Acquired hypothyroidism E03.[address] [id number] Apr, [place] [address] [id number] Mar, Herniated nucleus pulposus M51.9 and Nodule, subcutaneous R22.[address] [id number] Mar, Herniated nucleus pulposus M51.[address] [id number] February, Herniated nucleus pulposus M51.9 ; Polyneuropathy G62.9 and Anxiety F41.9 [facility] [id number] [place] [id number] Jan, Herniated nucleus pulposus M51.9 ; Moderate episode of recurrent major depressive disorder F33.1 and Acquired hypothyroidism E03.9 [facility] [id number] [place] [id number] Dec, Herniated nucleus pulposus M51.9 [place] [id number] [place] [address] [id number] Nov, Cervicalgia M54.2 and Herniated nucleus pulposus M51.9 [address] [id number] Oct, Herniated nucleus pulposus M51.9 and OCD (obsessive compulsive disorder) F42 [address] [place] [address] [id number] Oct, Herniated nucleus pulposus M51.9 [address] [place] [address] [id number] Aug, Acquired hypothyroidism E03.9 [address] [id number] Aug, Herniated nucleus pulposus M51.9 and Acquired hypothyroidism E03.9 [facility] [address]005[address], [place] [address] Aug, [address] [id number] Jul, Herniated nucleus pulposus M51.9 ; OCD (obsessive compulsive disorder) F42 and Pain of right upper extremity M79.601 [place] [id number] [id number] Jul, Anxiety F41.9 [address] [place] [address] [id number] Jul, [facility] [address] [place] [address] [id number] Jun, OCD (obsessive compulsive disorder) F42 ; Herniated nucleus pulposus M51.9 and Acute cystitis with hematuria N30.01 [facility] [address] [place] [address] [id number] [place] [id number] Jun, Anxiety F41.9 [facility] [address] [id number] [place] [id number] Jun, [facility] [id number] [place] [address] [id number] May, Acquired hypothyroidism E03.9 [facility] [address] [id number] [place] [id number] May, Polyneuropathy G62.9 ; OCD (obsessive compulsive disorder) F42 ; Herniated nucleus pulposus M51.9 ; Screening for lipid disorders Z13.220 ; Long-term use of high- risk medication Z79.899 and Major depressive disorder, recurrent, moderate F33.1 [facility] [address] [id number] [id number] May, Dental examination Z01.20 [facility] [id number] [place] [address] [id number] May, Herniated nucleus pulposus M51.9 [facility] [id number] [place] [address] [id number] May, Herniated nucleus pulposus M51.9 and Anxiety F41.9 [facility] [id number] [place] [address] [id number] Apr, Herniated nucleus pulposus M51.9 and Cervicalgia M54.2 [facility] [address] [id number] [place] [id number] Apr, Moderate episode of recurrent major depressive disorder F33.1 [facility] [id number] [place] [address] [id number] Apr, Herniated nucleus pulposus M51.9 [facility] [address] [id number] [place] [id number] Apr, Herniated nucleus pulposus M51.9 [facility] [address] [id number] [place] [id number] Mar, Moderate episode of recurrent major depressive disorder F33.1 [facility] [id number] [place] [address] [id number] Mar, Anxiety F41.9 [address] [id number] Mar, [address] [id number] Mar, Herniated nucleus pulposus M51.9 and Cervicalgia M54.2 [place] [id number] [place] [address] [id number] February, Acquired hypothyroidism E03.9 [place] [address] [id number] [place] [address] [id number] February, Polyneuropathy G62.9 ; Herniated nucleus pulposus M51.9 ; Cervicalgia M54.2 and Acquired hypothyroidism E03.9 [place] [address] [place] [id number] [place] [address] [id number] Jan, [place] [id number] [place] [address] [id number] Jan, Cervicalgia M54.2 and Moderate episode of recurrent major depressive disorder F33.1 [address] [place] [address] [id number] Dec, Cervicalgia M54.2 and Herniated nucleus pulposus M51.9 [address] [place] [address] [id number] Nov, Lymph nodes enlarged R59.9 [place] [id number] [place] [address] [id number] Oct, Cervicalgia M54.2 [facility] [address], [place] [address] Sep, Polyneuropathy G62.9 [address] [id number] Sep, Cervicalgia M54.2 and Herniated nucleus pulposus M51.9 [place] [id number] [place] [address] [id number] Aug, Lumbar radiculopathy M54.16 and Spinal stenosis at L4-L5 level M48.06 [place] [id number] [place] [address] [id number] Aug, Cervicalgia M54.2 and Herniated nucleus pulposus M51.9 [place] [address] [place] [id number] [place] [address] [id number] Jul, [place] [id number] [place] [address] [id number] Jun, Cervicalgia M54.2 and Herniated nucleus pulposus M51.9 [place] [id number] [place] [address] [id number] May, Plantar fasciitis M72.2 [place] [id number] [place] [address] [id number] May, [place] [id number] [place] [address] [id number] Apr, Screening for lipid disorders Z13.220 ; Long-term use of high-risk medication Z79.899 and Major depressive disorder, recurrent, moderate F33.1 [place] [id number] [place] [address] [id number] Apr, [place] [id number] [place] [address] [id number] Mar, Herniated nucleus pulposus M51.9 and Cervicalgia M54.2 [address] [place] [address] [id number] Mar, Cervicalgia M54.2 and Herniated nucleus pulposus M51.9 [address] [place] [address] [id number] February, [place] [id number] [place] [address] [id number] February, Cervicalgia M54.2 and Herniated nucleus pulposus M51.9 [place] [id number] [place] [address] [id number] Dec, Syncope, unspecified syncope type R55 [id number] [place] [address] [id number] Dec, Cervicalgia M54.2 ; Herniated nucleus pulposus M51.9 and Moderate episode of recurrent major depressive disorder F33.1 [place] [id number] [place] [address] [id number] Dec, [place] [address] [place] [id number] [place] [address] [id number] Dec, Herniated nucleus pulposus M51.9 and Cervicalgia M54.2 [facility] [id number] [place] [address] [id number] Nov, [address] [id number] Nov, Herniated nucleus pulposus M51.9 and OCD (obsessive compulsive disorder) F42 [place] [id number] [place] [address] [id number] Sep, Displacement of intervertebral disc, site unspecified, without myelopathy 722.2 ; Cervicalgia 723.1 and Hypothyroidism, unspecified type E03.[address] [id number] Sep, [place] [address] [place] [id number] [place] [address] [id number] Jun, Displacement of intervertebral disc, site unspecified, without myelopathy 722.2 and Cervicalgia 723.1 [place] [address] [place] [id number] [place] [address] [id number] Mar, Displacement of intervertebral disc, site unspecified, without myelopathy 722.2 and Shingles 053.9 [place] [id number] [place] [address] [id number] February, Shingles 053.9 [place] [address] [place] [id number] [place] [address] [id number] February, Displacement of intervertebral disc, site unspecified, without myelopathy 722.2 ; Tension headache 307.81 and Cervicalgia 723.1 [place] [id number] [place] [address] [id number] February, [address] [place] [address] [id number] February, [place] [id number] [place] [address] [id number] February, [facility] [place] [facility] [address] [facility] [id number], [place] [address] Jan, [facility] [place] [facility] [address] [facility] [id number], [place] [address] Jan, [facility] [address] [id number] [place] [id number] Jan, [facility] [place] [facility] [address] [facility] [id number], [place] [address] Jan, [facility] [place] [facility] [address] [facility] [id number], [place] [address] Jan, [facility] [address] [facility] [id number] [place] 916[address]23[address] Dec, [facility] [place] [facility] [address] [facility] [id number], [place] [address] Dec, [facility] [address] [facility] [id number] [place] [id number] Dec, [facility] [place] [facility] [address] [facility] [id number], [place] [address] Dec, [facility] [address] [facility] [id number] [place] [id number] Nov, [facility] [place] [facility] [address] [facility] [id number], [place] [address] Nov, [facility] [address] [facility] [id number] [place] [id number] Oct, [facility] [place] [facility] [address] [facility] [id number], [place] [address] Oct, [facility] [address] [facility] [id number] [place] [id number] Oct, [facility] [place] [facility] [address] [facility] [id number], [place] [address] Oct, [facility] [address] [id number] [place] [id number] Oct, [facility] [address] [facility] [id number] [place] [id number] Oct, [facility] [place] [facility] [address] [facility] [id number], [place] [address] Oct, [facility] [place] [facility] [address] [facility] [id number], [place] [address] Oct, [facility] [address] [facility] [id number] [place] 838[address] Oct, [facility] [place] [facility] [address] [facility] [id number], [place] [address] Oct, [facility] [address] [id number] [place] [id number] Oct, [facility] [place] [facility] [address] [facility] [id number], [place] [address] Oct, [facility] [address] [facility] [id number] [place] 657828217 Sep, [facility] [place] [facility] [address]65[address], [place] [address] Sep, [facility] [address] [facility] [id number] [place] 7[address] Aug, [facility] [place] [facility] [address]65[address], [place] [address] Aug, [facility] [place] [facility] [address] [facility] [id number], [place] [address] Aug, [facility] [address] [id number] [place] [id number] Aug, [facility] [address] [facility] [id number] [place] 110[address]43[address] Aug, [facility] [place] [facility] [address] [facility] [id number], [place] [address] Aug, [facility] [address] [facility] [id number] [place] [id number] Jul, [facility] [place] [facility] [address] [facility] [id number], [place] [address] Jul, [facility] [address] [id number] [place] [id number] Jul, [facility] [place] [facility] [address] [id number] [address] Jul, [facility] [place] [facility] [address] [id number] [place] [address] Apr, [facility] [address] [id number] [place] [id number] Apr, [facility] [place] [facility] [address] [id number] [place] [address] Apr, [facility] [address] [id number] [place] [id number] Apr, [facility] [place] [facility] [address] [facility] [id number] [place] [address] Apr, [facility] [address] [id number] [place] [id number] Mar, [facility] [place] [facility] [address] [facility] [id number], [place] [address] Mar, [facility] [address] [facility] [id number] [place] [id number] Mar, [facility] [place] [facility] [address] [facility] [id number], [place] [address] Mar, [facility] [address] [facility] [id number] [place] [id number] February, [facility] [place] [facility] [address] [facility] [id number], [place] [address] February, [facility] [place] [facility] [address] [id number], [place] [address] February, [facility] [address] [id number] [place] [id number] February, [facility] [place] [facility] [address] [facility] [id number], [place] [address] February, [facility] [address] [id number] [place] [id number] February, [facility] [place] [facility] [address] [facility] [id number], [place] [address] February, [facility] [place] [facility] [address] [facility] [id number] [place] [address] Jan, [facility] [place] [facility] [address] [facility] [id number] [place] [address] Jan, [facility] [place] [facility] [address] [facility] [id number], [place] [address] Jan, [facility] [address] [facility] [id number] [place] [id number] Jan, [facility] [place] [facility] [address] [facility] [id number] [place] [address] Jan, [facility] [address] [facility] [id number] [place] 234[address]37[address] Jan, [facility] [place] [facility] [address]00565[address], [place] [address] Jan, [facility] [address] [facility] [id number] [place] [id number] Jan, [facility] [place] [facility] [address] [facility] [id number] [place] [address] Jan, [facility] [place] [facility] [address] [facility] [id number], [place] [address] Jan, [facility] [place] [facility] [address] [facility] [id number], [place] [address] Jan, [facility] [place] [facility] [address] [facility] [id number], [place] [address] Jan, [facility] [address] [facility] [id number] [place] [id number] Jan, [facility] [address] [facility] [id number] [place] [id number] Jan, [facility] [place] [facility] [address] [facility] [id number] [place] [address] Jan, [facility] [address] [facility] [id number] [place] [id number] Jan, [facility] [place] [facility] [address] [facility] [id number], [place] [address] Jan, [facility] [address] [facility] [id number] [place] [id number] Jan, [facility] [place] [facility] [address] [facility] [id number], [place] [address] Jan, [facility] [address] [facility] [id number] [place] 158511269 Dec, [facility] [place] [facility] [address] [facility] [id number], [place] [address] Dec, [facility] [address] [facility] [id number] [place] 383790716 Dec, [facility] [place] [facility] [address]00565[address], [place] [address] Dec, [facility] [id number] [place] 97[address] Dec, [facility] [place] [facility] [address]00565[address], [place] [address] Dec, [facility] [address] [facility] [id number] [place] [id number] Dec, [facility] [place] [facility] [address]00565[address], [place] [address] Dec, [facility] [address] [id number] [place] [address] Nov, [facility] [place] [facility] [address] [id number], [place] [address] Nov, [facility] [address] [facility] [id number] [place] 8722065[address] Nov, [facility] [place] [facility] [address], [place] [address] Nov, [facility] [place] [facility] [address] [id number], [place] [address] Nov, [facility] [place] [facility] [address]65[address], [place] [address] Nov, [facility] [address] [facility] [id number], [place] [address] Nov, [facility] [address] [facility] [id number], [place] [address] Nov, [facility] [place] [address] [id number] [place] [id number] Oct, [facility] [address] [facility] [id number], [place] [address] Oct, [facility] [address] [facility] [id number], [place] [address] Oct, [facility] [place] [address] [facility] [id number] [place] [id number] Oct, [facility] [address], [place] [address] Oct, [facility] [place] [address] [id number] [place] [id number] Oct, [facility] [address] [id number], [place] [address] Oct, [facility] [place] [address] [id number] [place] [id number] Aug, [facility] [address] [facility] [id number], [place] [address] Aug, [facility] [place] [address] [id number] [place] [id number] Jul, [facility] [address] [facility] [id number], [place] [address] Mar, [facility] [place] [address] [id number] [place] [id number] Mar, [facility] [address] [facility] [id number], [place] [address] Mar, [facility] [place] [address] [id number] [place] [id number] Jan, [facility] [place] [address] [id number] [place] [id number] Sep, [facility] [address] [facility] [id number], [place] [address] Sep, [facility] [place] [address] [id number] [place] [id number] May, [facility] [place] [address] [id number] [place] [id number] Apr, [facility] [place] [address] [id number] [place] [id number] Mar, [facility] [place] [address] [id number] [place] [id number] Mar, [facility] [place] [address] [id number] [place] [id number] February, [facility] [place] [address] [id number] [place] [id number] Jan, [facility] [id number] [place] [address] Mar, [facility] [id number], [place] [address] Sep, [facility] [id number] [place] [address] Aug, [facility] [address], [place] [address] Aug, [facility] [id number] [place] [address] Aug, [facility] [address] [id number], [place] [address] Aug, [facility] [id number] [place] [address] Aug, [facility] [address], [place] [address] Jul, [facility] [id number] [place] [address] Apr, IMMUNIZATIONS No Known Immunizations SOCIAL HISTORY Never Assessed REASON FOR VISIT PLAN OF CARE VITAL SIGNS Height 66 in 2014-12-20 Weight 203.2 lbs 2014-12-20 Temperature 96.8 degrees Fahrenheit 2014-12-20 Heart Rate 80 bpm 2014-12-20 Respiratory Rate 16 2014-12-20 Blood pressure systolic 112 mmHg 2014-12-20 Blood pressure diastolic 70 mmHg 2014-12-20 MEDICATIONS Unknown Medications RESULTS No Results PROCEDURES No Known procedures INSTRUCTIONS MEDICATIONS ADMINISTERED No Known Medications MEDICAL (GENERAL) HISTORY Type Description Date Medical History cardiovascular disease Medical History uterine fibroids Medical History shingles Medical History TIA -- 2008 Medical History thyroid disorder Medical History seizures [...]
--- OUTSIDE RECORDS SUMMARY | 2019-04-19 10:22 | XMS REPORT ---
Author Author Migration, Doctor Organization [facility] Address Unknown Phone Unavailable Care Team Providers Care Heater Engineer Helper Name Role Phone Migration, Doctor Unavailable Unavailable PROBLEMS Type Condition ICD9-CM Code XAB53-IT Code Onset Dates Condition Status SNOMED Code Problem OCD (obsessive compulsive disorder) F42 Active 255509932 Problem Herniated nucleus pulposus M51.9 Active 89777868 Problem Acquired hypothyroidism E03.9 Active 674511399 Problem Anxiety F41.9 Active 13508986 Problem Cervicalgia M54.2 Active 10085188 Problem Moderate episode of recurrent major depressive disorder F33.1 Active 997288872 Problem Plantar fasciitis M72.2 Active 696176787 Problem Polyneuropathy G62.9 Active 14898693 ALLERGIES Substance Reaction Event Type Date Status Lamictal Unknown Drug Allergy Jan, Active Clindamycin Hcl 300 Mg Capsule Unknown Non Drug Allergy Jan, Active ENCOUNTERS Encounter Location Date Diagnosis [place] [id number] [place] [address] [id number] Mar, Polyneuropathy G62.9 ; Herniated nucleus pulposus M51.9 ; Moderate episode of recurrent major depressive disorder F33.1 and Acquired hypothyroidism E03.9 [place] [id number] [place] [address] [id number] Mar, Polyneuropathy G62.9 [place] [id number] [place] [address] [id number] February, Polyneuropathy G62.9 and Acquired hypothyroidism E03.9 [place] [id number] [place] [address] [id number] February, Cervicalgia M54.2 and Herniated nucleus pulposus M51.9 [place] [id number] [place] [address] [id number] February, [place] [id number] [place] [address] [id number] Jan, Polyneuropathy G62.9 [place] [id number] [place] [address] [id number] Dec, Herniated nucleus pulposus M51.9 [place] [id number] [place] [address] [id number] Dec, Long-term use of high-risk medication Z79.899 and Lumbar radiculopathy M54.16 [place] [id number] [place] [address] [id number] Nov, Polyneuropathy G62.9 ; Dermatitis L30.9 and Herniated nucleus pulposus M51.[address] [id number] Nov, [address] [id number] Oct, Herniated nucleus pulposus M51.9 [place] [id number] [place] [address] [id number] Oct, [place] [address] [id number] Sep, [place] [id number] [place] [address] [id number] Sep, Herniated nucleus pulposus M51.9 and Acute cystitis with hematuria N30.01 [place] [id number] [place] [address] [id number] Aug, Herniated nucleus pulposus M51.9 [place] [id number] [place] [address] [id number] Jul, [place] [id number] [place] [address] [id number] Jul, Mass of right upper extremity R22.31 and Foreign body in right foot, initial encounter S90.851A [address] [id number] Jul, Foreign body in right foot, initial encounter S90.851A [place] [id number] [place] [address] [id number] Jul, Acquired hypothyroidism E03.[address] [place] [id number] Jul, Moderate episode of recurrent major depressive disorder F33.1 ; Herniated nucleus pulposus M51.9 ; Cervicalgia M54.2 ; Polyneuropathy G62.9 and Acquired hypothyroidism E03.9 [facility] [id number] [place] [address] [id number] Jun, [facility] [address] [place] [address] [id number] Jun, Herniated nucleus pulposus M51.9 [facility] [address] [id number] May, Herniated nucleus pulposus M51.9 [facility] [address] [id number] Apr, Herniated nucleus pulposus M51.9 [facility] [address] [id number] Apr, [facility] [address] [id number] Apr, Acquired hypothyroidism E03.9 [facility] [address] [place] [id number] [place] [address] [id number] Apr, Acquired hypothyroidism E03.9 [facility] [address] [id number] Apr, [facility] [address] [id number] Mar, Herniated nucleus pulposus M51.9 and Nodule, subcutaneous R22.9 [facility] [address] [place] [address] [id number] [place] [address] [id number] Mar, Herniated nucleus pulposus M51.9 [facility] [address] [place] [address] [id number] [place] [address] [id number] February, Herniated nucleus pulposus M51.9 ; Polyneuropathy G62.9 and Anxiety F41.9 [facility] [address] [place] [id number] [place] [address] [id number] Jan, Herniated nucleus pulposus M51.9 ; Moderate episode of recurrent major depressive disorder F33.1 and Acquired hypothyroidism E03.9 [facility] [id number], [place] [id number] Dec, Herniated nucleus pulposus M51.9 [facility] [address] [place] [id number] [place] [address] [id number] Nov, Cervicalgia M54.2 and Herniated nucleus pulposus M51.9 [facility] [id number] [place] [address] [id number] Oct, Herniated nucleus pulposus M51.9 and OCD (obsessive compulsive disorder) F42 [facility] [address] [place] [address] [id number] [place] [address] [id number] Oct, Herniated nucleus pulposus M51.9 [facility] [address] [place] [address] [id number] [place] [address] [id number] Aug, Acquired hypothyroidism E03.9 [facility] [id number] [place] [address] [id number] Aug, Herniated nucleus pulposus M51.9 and Acquired hypothyroidism E03.9 [facility] [address] [id number] [address] Aug, [facility] [id number] [place] [address] [id number] Jul, Herniated nucleus pulposus M51.9 ; OCD (obsessive compulsive disorder) F42 and Pain of right upper extremity M79.601 [facility] [id number], [place] [id number] Jul, Anxiety F41.9 [facility] [id number], [place] [id number] Jul, [facility] [id number], [place] [id number] Jun, OCD (obsessive compulsive disorder) F42 ; Herniated nucleus pulposus M51.9 and Acute cystitis with hematuria N30.01 [facility] [id number], [place] [id number] 13 Jun, 2017 Anxiety F41.9 [facility] [id number] [place] [address] [id number] 07 Jun, 2017 [facility] [address] [id number], [place] [id number] May, Acquired hypothyroidism E03.9 [facility] [address] [address] [id number] [place] [address] [id number] May, Polyneuropathy G62.9 ; OCD (obsessive compulsive disorder) F42 ; Herniated nucleus pulposus M51.9 ; Screening for lipid disorders Z13.220 ; Long-term use of high- risk medication Z79.899 and Major depressive disorder, recurrent, moderate F33.1 [facility] [address] [id number] [id number] May, Dental examination Z01.20 [facility] [address] [place] [id number] [place] [address] [id number] May, Herniated nucleus pulposus M51.9 [place] [address] [place] [id number] [place] [address] [id number] May, Herniated nucleus pulposus M51.9 and Anxiety F41.9 [facility] [address] [place] [id number] [place] [address] [id number] Apr, Herniated nucleus pulposus M51.9 and Cervicalgia M54.2 [facility] [id number] [place] [address] [id number] Apr, Moderate episode of recurrent major depressive disorder F33.1 [facility] [id number] [place] [address] [id number] Apr, Herniated nucleus pulposus M51.9 [place] [id number] [place] [address] [id number] Apr, Herniated nucleus pulposus M51.9 [facility] [id number] [place] [address] [id number] Mar, Moderate episode of recurrent major depressive disorder F33.1 [facility] [id number] [place] [address] [id number] Mar, Anxiety F41.9 [facility] [id number] [place] [address] [id number] Mar, [facility] [address] [place] [id number] [place] [address] [id number] Mar, Herniated nucleus pulposus M51.9 and Cervicalgia M54.2 [facility] [id number] [place] [address] [id number] February, Acquired hypothyroidism E03.9 [facility] [address] [place] [id number] [place] [address] [id number] February, Polyneuropathy G62.9 ; Herniated nucleus pulposus M51.9 ; Cervicalgia M54.2 and Acquired hypothyroidism E03.9 [facility] [address] [place] [id number] [place] [address] [id number] Jan, [place] [id number] [place] [address] [id number] Jan, Cervicalgia M54.2 and Moderate episode of recurrent major depressive disorder F33.1 [place] [id number] [place] [address] [id number] Dec, Cervicalgia M54.2 and Herniated nucleus pulposus M51.[id number] [place] [address] [id number] Nov, Lymph nodes enlarged R59.[id number] [place] [address] [id number] Oct, Cervicalgia M54.2 [facility] [address]00565[address] [address] Sep, Polyneuropathy G62.[id number] [place] [address] [id number] Sep, Cervicalgia M54.2 and Herniated nucleus pulposus M51.9 [address] [place] [address] [id number] Aug, Lumbar radiculopathy M54.16 and Spinal stenosis at L4-L5 level M48.06 [place] [id number] [place] [address] [id number] Aug, Cervicalgia M54.2 and Herniated nucleus pulposus M51.9 [id number] [place] [address] [id number] Jul, [facility] [id number], [place] [id number] Jun, Cervicalgia M54.2 and Herniated nucleus pulposus M51.9 [facility] [address] [place] [id number] [place] [address] [id number] May, Plantar fasciitis M72.2 [facility] [address] [place] [id number] [place] [address] [id number] May, [place] [address] [place] [id number] [place] [address] [id number] Apr, Screening for lipid disorders Z13.220 ; Long-term use of high-risk medication Z79.899 and Major depressive disorder, recurrent, moderate F33.1 [place] [address] [place] [id number] [place] [address] [id number] Apr, [place] [address] [place] [id number] [place] [address] [id number] Mar, Herniated nucleus pulposus M51.9 and Cervicalgia M54.2 [facility] [address] [place] [id number] [place] [address] [id number] Mar, Cervicalgia M54.2 and Herniated nucleus pulposus M51.9 [place] [id number] [place] [address] [id number] February, [place] [id number] [place] [address] [id number] February, Cervicalgia M54.2 and Herniated nucleus pulposus M51.9 [place] [id number] [place] [address] [id number] Dec, Syncope, unspecified syncope type R55 [id number] [place] [address] [id number] Dec, Cervicalgia M54.2 ; Herniated nucleus pulposus M51.9 and Moderate episode of recurrent major depressive disorder F33.1 [facility] [id number] [place] [address] [id number] Dec, [place] [id number] [place] [address] [id number] Dec, Herniated nucleus pulposus M51.9 and Cervicalgia M54.2 [facility] [id number] [place] [address] [id number] Nov, [address] [id number] Nov, Herniated nucleus pulposus M51.9 and OCD (obsessive compulsive disorder) F42 [place] [id number] [place] [address] [id number] Sep, Displacement of intervertebral disc, site unspecified, without myelopathy 722.2 ; Cervicalgia 723.1 and Hypothyroidism, unspecified type E03.9 [facility] [address] [place] [id number] [place] [address] [id number] Sep, [place] [address] [place] [id number] [place] [address] [id number] Jun, Displacement of intervertebral disc, site unspecified, without myelopathy 722.2 and Cervicalgia 723.1 [place] [address] [place] [id number] [place] [address] [id number] Mar, Displacement of intervertebral disc, site unspecified, without myelopathy 722.2 and Shingles 053.9 [place] [address] [place] [id number] [place] [address] [id number] February, Shingles 053.9 [place] [address] [place] [id number] [place] [address] [id number] February, Displacement of intervertebral disc, site unspecified, without myelopathy 722.2 ; Tension headache 307.81 and Cervicalgia 723.1 [facility] [id number] [place] [address] [id number] February, [id number] [place] [address] [id number] February, [place] [id number] [place] [address] [id number] February, [facility] [id number] [place] [address] Jan, [facility] [id number] [place] [address] Jan, [facility] [place] [address] [facility] [id number][place] [id number] Jan, [facility] [place] [facility] [address] [facility] [id number], [place] [address] Jan, [facility] [place] [facility] [address] [facility] [id number], [place] [address] Jan, [facility] [place] [address] [facility] [id number][place] [id number] Dec, [facility] [place] [facility] [address] [facility] [id number], [place] [address] Dec, [facility] [place] [address] [facility] [id number], [place] [id number] Dec, [facility] [place] [facility] [address]65100[place], [place] [address] Dec, [facility] [place] [id number], [place] [id number] Nov, [facility] [place] [facility] [address]65100[place], [place] [address] Nov, [facility] [place] [address] [facility] [id number], [place] [id number] Oct, [facility] [place] [facility] [address]65100[place], [place] [address] Oct, [facility] [place] [address] [facility] [id number], [place] [id number] Oct, [facility] [place] [facility] [address], [place] [address] Oct, [facility] [place] [address] [facility] [id number], [place] [id number] Oct, [facility] [address] [facility] [id number][place] [id number] Oct, [facility] [place] [facility] [address], [place] [address] Oct, [facility] [place] [facility] [address]65100[place], [place] [address] Oct, [facility] [address] [facility] [id number] [place] [id number] Oct, [facility] [place] [facility] [address] [facility] [id number][place] [address] Oct, [facility] [address] [facility] [id number] [place] [id number] Oct, [facility] [place] [facility] [address] [facility] [id number][place] [address] Oct, [facility] [address] [facility] [id number][place] [id number] Sep, [facility] [place] [facility] [address] [facility] [id number], [place] [address] Sep, [facility] [address] [id number] [id number] Aug, [facility] [place] [facility] [address], [place] [address] Aug, [facility] [place] [facility] [address] [facility] [id number], [place] [address] Aug, [facility] [address] [facility] [id number], [place] [id number] Aug, [facility] [address] [facility] [id number][place] [id number] Aug, [facility] [place] [facility] [address], [place] [address] Aug, [facility] [address] [facility] [id number][place] [id number] Jul, [facility] [place] [facility] [address] [facility] [id number], [place] [address] Jul, [facility] [address] [facility] [id number][place] [id number] Jul, [facility] [place] [facility] [address], [place] [address] Jul, [facility] [place] [facility] [address] [facility] [id number] [place] [address] Apr, [facility] [address] [facility] [id number] [place] [id number] Apr, [facility] [place] [facility] [address] [facility] [id number] [place] [address] Apr, [facility] [address] [facility] [id number] [place] [id number] Apr, [facility] [place] [facility] [address] [facility] [id number] [place] [address] Apr, [facility] [address] [facility] [id number] [place] [id number] Mar, [facility] [place] [facility] [address] [facility] [id number] [place] [address] Mar, [facility] [address] [facility] [id number] [place] [id number] Mar, [facility] [place] [facility] [address]65[address] [address] Mar, [facility] [address] [facility] [id number] [place] [id number] February, [facility] [place] [facility] [address] [place] [address] February, [facility] [place] [facility] [address] [facility] [id number], [place] [address] February, [facility] [address] [facility] [id number][place] [id number] February, [facility] [place] [facility] [address] [facility] [id number], [place] [address] February, [facility] [address] [facility] [id number] [place] [id number] February, [facility] [place] [facility] [address] [facility] [id number] [place] [address] February, [facility] [place] [facility] [address] [facility] [id number] [place] [address] Jan, [facility] [place] [facility] [address] [id number], [place] [address] Jan, [facility] [place] [facility] [address] [facility] [id number] [place] [address] Jan, [facility] [address] [facility] [id number] [place] [address] Jan, [facility] [place] [facility] [address] [facility] [id number], [place] [address] Jan, [facility] [address] [facility] [id number] [place] [id number] Jan, [facility] [place] [facility] [address] [id number] [place] [address] Jan, [facility] [address] [facility] [id number], [place] [id number] Jan, [facility] [place] [facility] [address] [facility] [id number], [place] [address] Jan, [facility] [place] [facility] [address] [facility] [id number], [place] [address] Jan, [facility] [place] [facility] [address] [facility] [id number], [place] [address] Jan, [facility] [place] [facility] [address] [facility] [id number][place] [address] Jan, [facility] [address] [id number], [place] [id number] Jan, [facility] [address] [facility] [id number], [place] [id number] Jan, [facility] [place] [facility] [address] [facility] [id number] [place] [address] Jan, [facility] [address] [facility] [id number] [place] [id number] Jan, [facility] [place] [facility] [address] [id number], [place] [address] Jan, [facility] [address] [facility] [id number] [place] [id number] Jan, [facility] [place] [facility] [address] [facility] [id number] [place] [address] Jan, [facility] [address] [facility] [id number] [place] [id number] Dec, [facility] [place] [facility] [address] [facility] [id number] [place] [address] Dec, [facility] [address] [facility] [id number] [place] [id number] Dec, [facility] [place] [facility] [address] [facility] [id number] [place] [address] Dec, [facility] [address] [facility] [id number] [place] [id number] Dec, [facility] [place] [facility] [address] [facility] [id number] [place] [address] Dec, [facility] [address] [id number] [place] [id number] Dec, [facility] [place] [facility] [address] [facility] [id number] [place] [address] Dec, [facility] [address] [facility] [id number] [place] [id number] Nov, [facility] [place] [facility] [address] [facility] [id number] [place] [address] Nov, [facility] [address] [id number] [place] [id number] Nov, [facility] [place] [facility] [address] [facility] [id number] [place] [address] Nov, [facility] [place] [facility] [address] [facility] [id number] [place] [address] Nov, [facility] [place] [facility] [address] [facility] [id number] [place] [address] Nov, [facility] [place] [facility] [address] [facility] [id number] [place] [address] Nov, [facility] [place] [facility] [address] [id number], [place] [address] Nov, [facility] [address] [facility] [id number] [place] [id number] Oct, [facility] [place] [facility] [address] [facility] [id number][place] [address] Oct, [facility] [address] [facility] [id number], [place] [address] Oct, [facility] [address] [facility] [id number][place] [id number] Oct, [facility] [address] [facility] [id number], [place] [address] Oct, [facility] [address] [facility] [id number][place] [id number] Oct, [facility] [address] [id number], [place] [address] Oct, [facility] [address] [facility] [id number][place] [id number] Aug, [facility] [place] [facility] [address] [facility] [id number], [place] [address] Aug, [facility] [address] [facility] [id number][place] [id number] Jul, [facility] [place] [facility] [address] [id number], [place] [address] Mar, [facility] [address] [facility] [id number][place] [id number] Mar, [facility] [place] [facility] [address] [facility] [id number], [place] [address] Mar, [facility] [address] [id number][place] [id number] Jan, [facility] [address] [facility] [id number][place] [id number] Sep, [facility] [place] [facility] [address] [facility] [id number], [place] [address] Sep, [facility] [address] [id number][place] [id number] May, [facility] [address] [facility] [id number][place] [id number] Apr, [facility] [place] [place] [address] [id number][place] [id number] Mar, [facility] [facility] [address] [id number] [id number] Mar, [facility] [id number] [id number] February, [facility] [id number] [id number] Jan, [facility] [id number] [place] [id number] Mar, [facility] [id number] [place] [phone] Sep, [facility] [id number] [place] [id number] Aug, [facility] [id number] [place] [id number] Aug, [facility] [id number] [place] [id number] Aug, [facility] [id number] [place] [phone] Aug, [facility] [id number] [place] [id number] Aug, [facility] [id number] [address] Jul, [facility] [id number] [place] [phone] Apr, IMMUNIZATIONS No Known Immunizations SOCIAL HISTORY Never Assessed REASON FOR VISIT EMR-[facility] [place] PLAN OF CARE VITAL SIGNS MEDICATIONS Medication Instructions Dosage Frequency Start Date End Date Duration Status levothyroxine 25 mcg 1 tablet by Oral route 1 time per day Mar, Active Qfvtygqt-Yueldbtps-QU 3.5-10,000-1 mg-unit/mL-% 4 drop by Otic route 4 times per day for 7 day(s) Jan, Active PredniSONE 20 mg 1 tablet by Oral route 2 times per day for 5 day(s) Mar, Active Depakote 125 mg 1 tablet by Oral route 2 times per day Oct, Active HydrOXYzine HCl 25 mg take 1 tablet by Oral route 1 time per day PRN itching Apr, Active Caltrate 600+D Plus Minerals 600 mg calcium- 800 unit-40 mg 1 Tablet by Oral route 2 times per day Jul, Active Hydrocodone-Acetaminophen 5-325 mg take 1 tablet by Oral route 2 times per day as needed for pain Dec, Active Pepcid 20 mg 1 tablet by Oral route 2 times per day for 5 days Jan, Active Paxil 20 mg 1 tablet by Oral route 1 time per day Jul, Active Triamcinolone Acetonide 0.1 % apply a thin layer to the affected area(s) by Topical route 3 times per day dispense 60 gram tube Apr, Active Parafon Forte DSC 500 mg 1 tablet by Oral route 2 times per day Oct, Active Benadryl 25 mg take 1-2 capsule by Oral route 6 times per day PRN Jan, Active Augmentin 875-125 mg 1 tablet by Oral route 2 times per day for 14 day(s) Jan, Active Gabapentin 400 mg 1 capsule by Oral route 3 times per day Nov, Active promethazine 25 mg 1 tablet by Oral route every 8 hours PRN Jan, Active Lidoderm 5 %(700 mg/patch) 2 PATCH by Topical route 1 time per day (remove patch(s) after 12 hours) 1 patch upper lat back area Dec, Active Amoxicillin 500 mg 2 capsule by Oral route 2 times per day for 10 day(s) Aug, Active tramadol 50 mg take 1 tablet by Oral route 3 times per day as needed PRN pain Dec, Active Ibuprofen 800 mg take 1 tablet by Oral route 3 times per day with food Nov, Active Methocarbamol 500 mg 1 tablet by Oral route 3 times per day PRN Dec, Active amitriptyline 25 mg 0.5-1 tablet by Oral route 1 time per day Dec, Active RESULTS No Results PROCEDURES No Known procedures [...]
--- OUTSIDE RECORDS SUMMARY | 2019-04-19 10:22 | XMS REPORT ---
Author Author HILDA WOLF [facility] Address [address] [place] [address] Care Team Providers Care Therapeutic Massage Technician Name Role Phone HILDA WOLF Unavailable PROBLEMS Type Condition ICD9-CM Code OHT71-WD Code Onset Dates Condition Status SNOMED Code Problem OCD (obsessive compulsive disorder) F42 Active 527642929 Problem Herniated nucleus pulposus M51.9 Active 87863771 Problem Acquired hypothyroidism E03.9 Active 608265939 Problem Anxiety F41.9 Active 08444077 Problem Cervicalgia M54.2 Active 01628924 Problem Moderate episode of recurrent major depressive disorder F33.1 Active 256662547 Problem Plantar fasciitis M72.2 Active 318649540 Problem Polyneuropathy G62.9 Active 87761459 ALLERGIES No Information ENCOUNTERS Encounter Location Date Diagnosis [id number] [place] [address] [id number] Mar, Polyneuropathy G62.9 ; Herniated nucleus pulposus M51.9 ; Moderate episode of recurrent major depressive disorder F33.1 and Acquired hypothyroidism E03.[id number] [place] [address] [id number] Mar, Polyneuropathy G62.9 [address] [place] [address] [id number] February, Polyneuropathy G62.9 and Acquired hypothyroidism E03.[address] [place] [address] [id number] February, Cervicalgia M54.2 and Herniated nucleus pulposus M51.9 [address] [place] [address] [id number] February, [address] [place] [address] [id number] Jan, Polyneuropathy G62.9 [place] [id number] [place] [address] [id number] Dec, Herniated nucleus pulposus M51.9 [place] [id number] [place] [address] [id number] Dec, Long-term use of high-risk medication Z79.899 and Lumbar radiculopathy M54.16 [place] [id number] [place] [address] [id number] Nov, Polyneuropathy G62.9 ; Dermatitis L30.9 and Herniated nucleus pulposus M51.9 [place] [id number] [place] [address] [id number] Nov, [address] [id number] Oct, Herniated nucleus pulposus M51.9 [place] [id number] [place] [address] [id number] Oct, [address] [id number] Sep, [place] [id number] [place] [address] [id number] Sep, Herniated nucleus pulposus M51.9 and Acute cystitis with hematuria N30.01 [place] [id number] [place] [address] [id number] Aug, Herniated nucleus pulposus M51.9 [place] [id number] [place] [address] [id number] Jul, [place] [id number] [place] [address] [id number] Jul, Mass of right upper extremity R22.31 and Foreign body in right foot, initial encounter S90.851A [address] [id number] Jul, Foreign body in right foot, initial encounter S90.851A [place] [id number] [place] [address] [id number] Jul, Acquired hypothyroidism E03.[address] [id number] Jul, Moderate episode of recurrent major depressive disorder F33.1 ; Herniated nucleus pulposus M51.9 ; Cervicalgia M54.2 ; Polyneuropathy G62.9 and Acquired hypothyroidism E03.9 [facility] [id number] [place] [address] [id number] Jun, [facility] [address] [id number] Jun, Herniated nucleus pulposus M51.9 [facility] [id number] [place] [address] [id number] May, Herniated nucleus pulposus M51.9 [place] [address] [id number] Apr, Herniated nucleus pulposus M51.9 [place] [address] [id number] [place] [address] [id number] Apr, [place] [address] [id number] Apr, Acquired hypothyroidism E03.9 [facility] [id number] [place] [address] [id number] Apr, Acquired hypothyroidism E03.9 [place] [address] [id number] Apr, [facility] [id number] [place] [address] [id number] Mar, Herniated nucleus pulposus M51.9 and Nodule, subcutaneous R22.9 [place] [id number] [place] [address] [id number] Mar, Herniated nucleus pulposus M51.9 [place] [id number] [place] [address] [id number] February, Herniated nucleus pulposus M51.9 ; Polyneuropathy G62.9 and Anxiety F41.9 [facility] [id number] [place] [address] [id number] Jan, Herniated nucleus pulposus M51.9 ; Moderate episode of recurrent major depressive disorder F33.1 and Acquired hypothyroidism E03.9 [place] [address] [id number] [id number] Dec, Herniated nucleus pulposus M51.9 [facility] [id number] [place] [address] [id number] Nov, Cervicalgia M54.2 and Herniated nucleus pulposus M51.9 [facility] [id number], [place] [id number] Oct, Herniated nucleus pulposus M51.9 and OCD (obsessive compulsive disorder) F42 [facility] [address] [id number][place] [id number] Oct, Herniated nucleus pulposus M51.9 [facility] [id number] [place] [address] [id number] Aug, Acquired hypothyroidism E03.9 [facility] [id number] [place] [address] [id number] Aug, Herniated nucleus pulposus M51.9 and Acquired hypothyroidism E03.9 [facility] [address] [id number] [address] Aug, [facility] [id number] [place] [address] [id number] Jul, Herniated nucleus pulposus M51.9 ; OCD (obsessive compulsive disorder) F42 and Pain of right upper extremity M79.601 [facility] [id number], [place] [id number] Jul, Anxiety F41.9 [facility] [id number], [place] [id number] Jul, [facility] [id number], [place] [id number] Jun, OCD (obsessive compulsive disorder) F42 ; Herniated nucleus pulposus M51.9 and Acute cystitis with hematuria N30.01 [facility] [id number], [place] [id number] 13 Jun, 2017 Anxiety F41.9 [facility] [id number], [place] [id number] 07 Jun, 2017 [facility] [id number] [place] [address] [id number] May, Acquired hypothyroidism E03.9 [facility] [id number] [place] [address] [id number] May, Polyneuropathy G62.9 ; OCD (obsessive compulsive disorder) F42 ; Herniated nucleus pulposus M51.9 ; Screening for lipid disorders Z13.220 ; Long-term use of high- risk medication Z79.899 and Major depressive disorder, recurrent, moderate F33.1 [facility] [address] [id number] [id number] May, Dental examination Z01.20 [facility] [id number] [place] [address] [id number] May, Herniated nucleus pulposus M51.9 [facility] [id number] [place] [address] [id number] May, Herniated nucleus pulposus M51.9 and Anxiety F41.9 [facility] [id number] [place] [address] [id number] Apr, Herniated nucleus pulposus M51.9 and Cervicalgia M54.2 [facility] [address] [id number] [place] [address] [id number] Apr, Moderate episode of recurrent major depressive disorder F33.1 [facility] [address] [id number] [place] [address] [id number] Apr, Herniated nucleus pulposus M51.9 [facility] [address] [id number] [place] [address] [id number] Apr, Herniated nucleus pulposus M51.9 [facility] [address] [id number] [place] [address] [id number] Mar, Moderate episode of recurrent major depressive disorder F33.1 [facility] [id number] [place] [address] [id number] Mar, Anxiety F41.9 [facility] [address] [id number] [place] [address] [id number] Mar, [facility] [id number] [place] [address] [id number] Mar, Herniated nucleus pulposus M51.9 and Cervicalgia M54.2 [facility] [id number] [place] [address] [id number] February, Acquired hypothyroidism E03.9 [facility] [id number] [place] [address] [id number] February, Polyneuropathy G62.9 ; Herniated nucleus pulposus M51.9 ; Cervicalgia M54.2 and Acquired hypothyroidism E03.9 [facility] [id number] [place] [address] [id number] Jan, [place] [id number] [place] [address] [id number] Jan, Cervicalgia M54.2 and Moderate episode of recurrent major depressive disorder F33.1 [place] [id number] [place] [address] [id number] Dec, Cervicalgia M54.2 and Herniated nucleus pulposus M51.9 [place] [id number] [place] [address] [id number] Nov, Lymph nodes enlarged R59.9 [address] [place] [address] [id number] Oct, Cervicalgia M54.2 [facility] [address]00565100[place] [address] Sep, Polyneuropathy G62.9 [address] [place] [address] [id number] Sep, Cervicalgia M54.2 and Herniated nucleus pulposus M51.9 [address] [place] [address] [id number] Aug, Lumbar radiculopathy M54.16 and Spinal stenosis at L4-L5 level M48.06 [address] [place] [address] [id number] Aug, Cervicalgia M54.2 and Herniated nucleus pulposus M51.9 [address] [place] [address] [id number] Jul, [address] [place] [address] [id number] Jun, Cervicalgia M54.2 and Herniated nucleus pulposus M51.9 [facility] [id number] [place] [address] [id number] May, Plantar fasciitis M72.2 [facility] [id number] [place] [address] [id number] May, [place] [id number] [place] [address] [id number] Apr, Screening for lipid disorders Z13.220 ; Long-term use of high-risk medication Z79.899 and Major depressive disorder, recurrent, moderate F33.1 [facility] [id number] [place] [address] [id number] Apr, [place] [address] [id number] [place] [address] [id number] Mar, Herniated nucleus pulposus M51.9 and Cervicalgia M54.2 [place] [address] [place] [address] [id number] [place] [address] [id number] Mar, Cervicalgia M54.2 and Herniated nucleus pulposus M51.9 [place] [id number] [place] [address] [id number] February, [place] [id number] [place] [address] [id number] February, Cervicalgia M54.2 and Herniated nucleus pulposus M51.9 [place] [id number] [place] [address] [id number] Dec, Syncope, unspecified syncope type R55 [address] [place] [address] [id number] Dec, Cervicalgia M54.2 ; Herniated nucleus pulposus M51.9 and Moderate episode of recurrent major depressive disorder F33.1 [facility] [id number] [place] [address] [id number] Dec, [place] [id number] [place] [address] [id number] Dec, Herniated nucleus pulposus M51.9 and Cervicalgia M54.2 [facility] [id number], [place] [id number] Nov, [place] [address] [place] [id number] [place] [address] [id number] Nov, Herniated nucleus pulposus M51.9 and OCD (obsessive compulsive disorder) F42 [place] [address] [place] [id number] [place] [address] [id number] Sep, Displacement of intervertebral disc, site unspecified, without myelopathy 722.2 ; Cervicalgia 723.1 and Hypothyroidism, unspecified type E03.9 [facility] [id number] [place] [address] [id number] Sep, [place] [id number] [place] [address] [id number] Jun, Displacement of intervertebral disc, site unspecified, without myelopathy 722.2 and Cervicalgia 723.1 [place] [address] [place] [address] [id number] [place] [address] [id number] Mar, Displacement of intervertebral disc, site unspecified, without myelopathy 722.2 and Shingles 053.9 [facility] [id number] [place] [address] [id number] February, Shingles 053.9 [place] [address] [place] [id number] [place] [address] [id number] February, Displacement of intervertebral disc, site unspecified, without myelopathy 722.2 ; Tension headache 307.81 and Cervicalgia 723.1 [facility] [id number] [place] [address] [id number] February, [address] [place] [address] [id number] February, [place] [id number] [place] [address] [id number] February, [facility] [id number] [place] [address] Jan, [facility] [id number] [place] [address] Jan, [facility] [address] [id number][place] [id number] Jan, [facility] [place] [facility] [address] [facility] [id number], [place] [address] Jan, [facility] [place] [facility] [address] [facility] [id number][place] [address] Jan, [facility] [address] [facility] [id number], [place] [id number] Dec, [facility] [place] [facility] [address] [facility] [id number], [place] [address] Dec, [facility] [address] [facility] [id number], [place] [id number] Dec, [facility] [place] [facility] [address]00565100[place], [place] [address] Dec, [facility] [address] [id number], [place] [id number] Nov, [facility] [place] [facility] [address]00565100[place], [place] [address] Nov, [facility] [address] [facility] [id number], [place] [id number] Oct, [facility] [place] [facility] [address]00565100[place], [place] [address] Oct, [facility] [address] [facility] [id number], [place] [id number] Oct, [facility] [place] [facility] [address] [id number] [address] Oct, [facility] [address] [facility] [id number], [place] [id number] Oct, [facility] [address] [facility] [id number], [place] [id number] Oct, [facility] [place] [facility] [address] [facility] [id number][place] [address] Oct, [facility] [place] [facility] [address]00565100[place], [place] [address] Oct, [facility] [address] [id number] [place] [id number] Oct, [facility] [place] [facility] [address] [facility] [id number][place] [address] Oct, [facility] [address] [facility] [id number], [place] [id number] Oct, [facility] [place] [facility] [address] [facility] [id number], [place] [address] Oct, [facility] [address] [id number] [place] [id number] Sep, [facility] [place] [facility] [address] [facility] [id number], [place] [address] Sep, [facility] [address] [facility] [id number], [place] [id number] Aug, [facility] [place] [facility] [address]00565100[place] [address] Aug, [facility] [place] [facility] [address] [facility] [id number], [place] [address] Aug, [facility] [address] [facility] [id number], [place] [id number] Aug, [facility] [address] [facility] [id number], [place] [id number] Aug, [facility] [place] [facility] [address] [facility] [id number][place] [address] Aug, [facility] [address] [facility] [id number], [place] [id number] Jul, [facility] [place] [facility] [address] [facility] [id number], [place] [address] Jul, [facility] [address] [facility] [id number], [place] [id number] Jul, [facility] [place] [facility] [address] [facility] [id number], [place] [address] Jul, [facility] [place] [facility] [address] [facility] [id number], [place] [address] Apr, [facility] [address] [id number] [place] [id number] Apr, [facility] [place] [facility] [address] [id number] [place] [address] Apr, [facility] [address] [id number] [place] [id number] Apr, [facility] [place] [facility] [address] [id number] [place] [address] Apr, [facility] [address] [id number] [place] [id number] Mar, [facility] [place] [facility] [address] [id number] [place] [address] Mar, [facility] [address] [id number] [place] [id number] Mar, [facility] [place] [facility] [address] [id number] [place] [address] Mar, [facility] [address] [id number] [place] [id number] February, [facility] [place] [facility] [address] [facility] [id number] [place] [address] February, [facility] [place] [facility] [address] [facility] [id number] [place] [address] February, [facility] [address] [id number] [place] [id number] February, [facility] [place] [facility] [address] [id number] [place] [address] February, [facility] [address] [id number] [place] [id number] February, [facility] [place] [facility] [address] [facility] [id number] [place] [address] February, [facility] [place] [facility] [address] [facility] [id number] [place] [address] Jan, [facility] [place] [facility] [address] [facility] [id number], [place] [address] Jan, [facility] [place] [facility] [address] [id number], [place] [address] Jan, [facility] [address] [facility] [id number], [place] [id number] Jan, [facility] [place] [facility] [address] [facility] [id number], [place] [address] Jan, [facility] [address] [facility] [id number], [place] [id number] Jan, [facility] [place] [facility] [address] [facility] [id number] [place] [address] Jan, [facility] [address] [facility] [id number], [place] [id number] Jan, [facility] [place] [facility] [address] [facility] [id number][place] [address] Jan, [facility] [place] [facility] [address] [facility] [id number], [place] [address] Jan, [facility] [place] [facility] [address] [facility] [id number][place] [address] Jan, [facility] [place] [facility] [address] [facility] [id number][place] [address] Jan, [facility] [address] [facility] [id number], [place] [id number] Jan, [facility] [address] [facility] [id number], [place] [id number] Jan, [facility] [place] [facility] [address] [facility] [id number], [place] [address] Jan, [facility] [address] [facility] [id number] [place] [id number] Jan, [facility] [place] [facility] [address] [facility] [id number][place] [address] Jan, [facility] [address] [facility] [id number], [place] [id number] Jan, [facility] [place] [facility] [address] [facility] [id number], [place] [address] Jan, [facility] [address] [facility] [id number], [place] 087384314 Dec, [facility] [place] [facility] [address] [facility] [id number], [place] [address] Dec, [facility] [address] [facility] [id number], [place] 909143454 Dec, [facility] [place] [facility] [address] [facility] [id number], [place] [address] Dec, [facility] [address] [facility] [id number], [place] [id number] Dec, [facility] [place] [facility] [address] [facility] [id number], [place] [address] Dec, [facility] [address] [facility] [id number][place] [id number] Dec, [facility] [address] [facility] [id number], [place] [address] Dec, [facility] [address] [facility] [id number][place] [id number] Nov, [facility] [address] [id number] [address] Nov, [facility] [address] [facility] [id number][place] [id number] Nov, [facility] [address] [facility] [id number], [place] [address] Nov, [facility] [address] [facility] [id number], [place] [address] Nov, [facility] [address] [facility] [id number], [place] [address] Nov, [facility] [address] [facility] [id number], [place] [address] Nov, [facility] [address] [facility] [id number], [place] [address] Nov, [facility] [address] [id number] [place] [id number] Oct, [facility] [address] [facility] [id number], [place] [address] Oct, [facility] [address] [facility] [id number][place] [address] Oct, [facility] [address] [facility] [id number][place] [id number] Oct, [facility] [address] [facility] [id number], [place] [address] Oct, [facility] [address] [facility] [id number][place] [id number] Oct, [facility] [id number], [place] [address] Oct, [facility] [address] [facility] [id number][place] [id number] Aug, [facility] [address] [id number], [place] [address] Aug, [facility] [address] [facility] [id number], [place] [id number] Jul, [facility] [address] [id number], [place] [address] Mar, [facility] [address] [id number][place] [id number] Mar, [facility] [address] [facility] [id number], [place] [address] Mar, [facility] [address] [id number][place] [id number] Jan, [facility] [address] [facility] [id number][place] [id number] Sep, [facility] [address] [facility] [id number], [place] [address] Sep, [facility] [address] [id number][place] [id number] May, [facility] [address] [facility] [id number] [place] [id number] Apr, [facility] [address] [id number][place] [id number] Mar, [facility] [address] [id number][place] [id number] Mar, [facility] [address] [id number][place] [id number] February, [facility] [address] [id number][place] [id number] Jan, [facility] [id number] [place] [address] Mar, [facility] [id number] [place] [address] Sep, [facility] [id number] [place] [address] Aug, [facility] [id number] [place] [address] Aug, [facility] [id number] [place] [address] Aug, [facility] [facility] [address] [id number] [address] Aug, [facility] [id number] [place] [id number] Aug, [facility] [id number] [address] Jul, [facility] [id number] [place] [id number] Apr, IMMUNIZATIONS No Known Immunizations SOCIAL HISTORY [...]
--- OUTSIDE RECORDS SUMMARY | 2019-04-19 10:23 | XMS REPORT ---
Author Author Migration, Doctor Organization [facility] Address Unknown Phone Unavailable Care Team Providers Care Geothermal Hvac Technician Name Role Phone Migration, Doctor Unavailable Unavailable PROBLEMS Type Condition ICD9-CM Code YSF91-AB Code Onset Dates Condition Status SNOMED Code Problem OCD (obsessive compulsive disorder) F42 Active 543062939 Problem Herniated nucleus pulposus M51.9 Active 68028146 Problem Acquired hypothyroidism E03.9 Active 740272172 Problem Anxiety F41.9 Active 10672745 Problem Cervicalgia M54.2 Active 55246043 Problem Moderate episode of recurrent major depressive disorder F33.1 Active 442555851 Problem Plantar fasciitis M72.2 Active 718947898 Problem Polyneuropathy G62.9 Active [id number] ALLERGIES No Information ENCOUNTERS Encounter Location Date Diagnosis [id number] [place] [address] [id number] February, [place] [id number] [place] [address] [id number] Jan, Polyneuropathy G62.[address] [place] [address] [id number] Dec, Herniated nucleus pulposus M51.9 [address] [id number] Dec, Long-term use of high-risk medication Z79.899 and Lumbar radiculopathy M54.16 [address] [id number] Nov, Polyneuropathy G62.9 ; Dermatitis L30.9 and Herniated nucleus pulposus M51.[address] [place] [address] [id number] Nov, [address] [place] [address] [id number] Oct, Herniated nucleus pulposus M51.9 [place] [id number] [place] [address] [id number] Oct, [address] [place] [address] [id number] Sep, [place] [id number] [place] [address] [id number] Sep, Herniated nucleus pulposus M51.9 and Acute cystitis with hematuria N30.01 [place] [id number] [place] [address] [id number] Aug, Herniated nucleus pulposus M51.9 [place] [id number] [place] [address] [id number] Jul, [place] [id number] [place] [address] [id number] Jul, Mass of right upper extremity R22.31 and Foreign body in right foot, initial encounter S90.851A [place] [id number] [place] [address] [id number] Jul, Foreign body in right foot, initial encounter S90.851A [place] [id number] [place] [address] [id number] Jul, Acquired hypothyroidism E03.9 [place] [id number] [place] [address] [id number] Jul, Moderate episode of recurrent major depressive disorder F33.1 ; Herniated nucleus pulposus M51.9 ; Cervicalgia M54.2 ; Polyneuropathy G62.9 and Acquired hypothyroidism E03.[address] [place] [address] [id number] Jun, [place] [id number] [place] [address] [id number] Jun, Herniated nucleus pulposus M51.9 [place] [id number] [place] [address] [id number] May, Herniated nucleus pulposus M51.9 [address] [place] [address] [id number] Apr, Herniated nucleus pulposus M51.9 [place] [id number] [place] [address] [id number] Apr, [facility] [id number] [id number] Apr, Acquired hypothyroidism E03.9 [facility] [address] [place] [id number] [place] [address] [id number] Apr, Acquired hypothyroidism E03.9 [facility] [address] [place] [id number] [place] [address] [id number] Apr, [facility] [address] [place] [address] [id number] [place] [address] [id number] Mar, Herniated nucleus pulposus M51.9 and Nodule, subcutaneous R22.9 [place] [address] [place] [id number] [place] [address] [id number] Mar, Herniated nucleus pulposus M51.9 [place] [address] [place] [id number] [place] [address] [id number] February, Herniated nucleus pulposus M51.9 ; Polyneuropathy G62.9 and Anxiety F41.9 [place] [address] [place] [id number] [place] [address] [id number] Jan, Herniated nucleus pulposus M51.9 ; Moderate episode of recurrent major depressive disorder F33.1 and Acquired hypothyroidism E03.9 [place] [address] [place] [id number] [place] [address] [id number] Dec, Herniated nucleus pulposus M51.9 [place] [address] [place] [id number] [place] [address] [id number] Nov, Cervicalgia M54.2 and Herniated nucleus pulposus M51.9 [place] [address] [place] [id number] [place] [address] [id number] Oct, Herniated nucleus pulposus M51.9 and OCD (obsessive compulsive disorder) F42 [place] [address] [place] [id number] [place] [address] [id number] Oct, Herniated nucleus pulposus M51.9 [place] [id number] [place] [address] [id number] Aug, Acquired hypothyroidism E03.9 [place] [address] [place] [id number] [place] [address] [id number] Aug, Herniated nucleus pulposus M51.9 and Acquired hypothyroidism E03.9 [facility] [address] [address] Aug, [facility] [address] [place] [address] [id number] [place] [address] [id number] Jul, Herniated nucleus pulposus M51.9 ; OCD (obsessive compulsive disorder) F42 and Pain of right upper extremity M79.601 [facility] [address] [id number] [place] [address] [id number] Jul, Anxiety F41.9 [facility] [address] [place] [id number] [place] [address] [id number] Jul, [facility] [address] [place] [address] [id number] [place] [address] [id number] Jun, OCD (obsessive compulsive disorder) F42 ; Herniated nucleus pulposus M51.9 and Acute cystitis with hematuria N30.01 [facility] [address] [place] [address] [id number] [place] [address] [id number] Jun, Anxiety F41.9 [facility] [id number] [place] [address] [id number] Jun, [facility] [address] [place] [id number] [place] [address] [id number] May, Acquired hypothyroidism E03.9 [facility] [address] [place] [address] [id number] May, Polyneuropathy G62.9 ; OCD (obsessive compulsive disorder) F42 ; Herniated nucleus pulposus M51.9 ; Screening for lipid disorders Z13.220 ; Long-term use of high- risk medication Z79.899 and Major depressive disorder, recurrent, moderate F33.1 [facility] [address] [id number] [id number] May, Dental examination Z01.20 [facility] [id number] [place] [address] [id number] May, Herniated nucleus pulposus M51.9 [place] [address] [place] [id number] [place] [address] [id number] May, Herniated nucleus pulposus M51.9 and Anxiety F41.9 [facility] [place] [id number] [place] [address] [id number] Apr, Herniated nucleus pulposus M51.9 and Cervicalgia M54.[address] [facility] [place] [id number] [place] [address] [id number] Apr, Moderate episode of recurrent major depressive disorder F33.[address] [facility] [place] [id number] [place] [address] [id number] Apr, Herniated nucleus pulposus M51.9 [facility] [id number] [place] [address] [id number] Apr, Herniated nucleus pulposus M51.9 [facility] [id number] [place] [address] [id number] Mar, Moderate episode of recurrent major depressive disorder F33.1 [facility] [id number] [place] [address] [id number] Mar, Anxiety F41.9 [facility] [id number] [place] [address] [id number] Mar, [facility] [address] [id number] [place] [address] [id number] Mar, Herniated nucleus pulposus M51.9 and Cervicalgia M54.2 [facility] [id number] [place] [address] [id number] February, Acquired hypothyroidism E03.9 [facility] [id number] [place] [address] [id number] February, Polyneuropathy G62.9 ; Herniated nucleus pulposus M51.9 ; Cervicalgia M54.2 and Acquired hypothyroidism E03.9 [facility] [address] [id number] [place] [address] [id number] Jan, [facility] [address] [place] [address] [id number] Jan, Cervicalgia M54.2 and Moderate episode of recurrent major depressive disorder F33.1 [facility] [address] [id number] [place] [address] [id number] Dec, Cervicalgia M54.2 and Herniated nucleus pulposus M51.9 [facility] [id number] [place] [address] [id number] Nov, Lymph nodes enlarged R59.9 [facility] [address] [place] [id number] [place] [address] [id number] Oct, Cervicalgia M54.2 [facility] [address] [place] [id number] [place] [phone] Sep, Polyneuropathy G62.9 [facility] [address] [place] [id number] [place] [address] [id number] Sep, Cervicalgia M54.2 and Herniated nucleus pulposus M51.9 [place] [address] [place] [id number] [place] [address] [id number] Aug, Lumbar radiculopathy M54.16 and Spinal stenosis at L4-L5 level M48.06 [place] [id number] [place] [address] [id number] Aug, Cervicalgia M54.2 and Herniated nucleus pulposus M51.9 [facility] [id number] [place] [address] [id number] Jul, [place] [address] [place] [id number] [place] [address] [id number] Jun, Cervicalgia M54.2 and Herniated nucleus pulposus M51.9 [address] [place] [address] [id number] May, Plantar fasciitis M72.2 [facility] [address] [place] [id number] [place] [address] [id number] May, [address] [place] [address] [id number] Apr, Screening for lipid disorders Z13.220 ; Long-term use of high-risk medication Z79.899 and Major depressive disorder, recurrent, moderate F33.1 [facility] [address] [place] [address] [id number] Apr, [place] [id number] [place] [address] [id number] Mar, Herniated nucleus pulposus M51.9 and Cervicalgia M54.2 [facility] [address] [id number] [place] [id number] Mar, Cervicalgia M54.2 and Herniated nucleus pulposus M51.9 [facility] [address] [id number] [place] [id number] February, [facility] [address] [place] [id number] [place] [address] [id number] February, Cervicalgia M54.2 and Herniated nucleus pulposus M51.9 [facility] [address] [place] [id number] [place] [address] [id number] Dec, Syncope, unspecified syncope type R55 [place] [address] [place] [id number] [place] [address] [id number] Dec, Cervicalgia M54.2 ; Herniated nucleus pulposus M51.9 and Moderate episode of recurrent major depressive disorder F33.1 [facility] [address] [place] [id number] [place] [address] [id number] Dec, [facility] [address] [place] [id number] [place] [address] [id number] Dec, Herniated nucleus pulposus M51.9 and Cervicalgia M54.2 [facility] [id number] [place] [address] [id number] Nov, [place] [address] [place] [id number] [place] [address] [id number] Nov, Herniated nucleus pulposus M51.9 and OCD (obsessive compulsive disorder) F42 [facility] [id number] [place] [address] [id number] Sep, Displacement of intervertebral disc, site unspecified, without myelopathy 722.2 ; Cervicalgia 723.1 and Hypothyroidism, unspecified type E03.9 [facility] [id number] [place] [address] [id number] Sep, [facility] [address] [place] [id number] [place] [address] [id number] Jun, Displacement of intervertebral disc, site unspecified, without myelopathy 722.2 and Cervicalgia 723.1 [facility] [place] [id number] [id number] Mar, Displacement of intervertebral disc, site unspecified, without myelopathy 722.2 and Shingles 053.9 [facility] [address] [id number] [place] [id number] February, Shingles 053.9 [facility] [place] [address] [id number] [id number] February, Displacement of intervertebral disc, site unspecified, without myelopathy 722.2 ; Tension headache 307.81 and Cervicalgia 723.1 [facility] [id number] [place] [address] [id number] February, [facility] [place] [id number] [place] [address] [id number] February, [facility] [place] [id number] [place] [id number] February, [facility] [id number] [place] [phone] Jan, [facility] [id number] [place] [phone] Jan, [facility] [id number] [place] [id number] Jan, [facility] [place] [facility] [address] [address] Jan, [facility] [place] [facility] [address] [address] [id number] [place] [id number] Jan, [facility] [id number] [place] [id number] Dec, [facility] [place] [facility] [address] [id number] [place] [address] Dec, [facility] [id number], [place] [id number] Dec, [facility] [id number] [place] [phone] Dec, [facility] [address] [id number] [place] [id number] Nov, [facility] [place] [facility] [address] [facility] [id number][place] [address] Nov, [facility] [address] [id number] [place] [id number] Oct, [facility] [place] [facility] [address] [facility] [id number][place] [address] Oct, [facility] [address] [id number] [place] [id number] Oct, [facility] [place] [facility] [address] [facility] [id number][place] [address] Oct, [facility] [address] [facility] [id number] [place] [id number] Oct, [facility] [address] [facility] [id number] [place] [id number] Oct, [facility] [place] [facility] [address] [facility] [id number], [place] [address] Oct, [facility] [place] [facility] [address], [place] [address] Oct, [facility] [address] [facility] [id number] [place] [id number] Oct, [facility] [place] [facility] [address] [facility] [id number], [place] [address] Oct, [facility] [address] [facility] [id number] [place] [id number] Oct, [facility] [place] [facility] [address] [facility] [id number][place] [address] Oct, [facility] [address] [facility] [id number] [place] [id number] Sep, [facility] [place] [facility] [address] [facility] [id number], [place] [address] Sep, [facility] [address] [facility] [id number] [place] [id number] Aug, [facility] [place] [facility] [address] [facility] [id number] [place] [address] Aug, [facility] [place] [facility] [address] [facility] [id number] [place] [address] Aug, [facility] [address] [id number] [place] [id number] Aug, [facility] [address] [facility] [id number] [place] [id number] Aug, [facility] [place] [facility] [address] [facility] [id number] [place] [address] Aug, [facility] [address] [facility] [id number] [place] [id number] Jul, [facility] [place] [facility] [address] [facility] [id number] [place] [address] Jul, [facility] [address] [facility] [id number] [place] [id number] Jul, [facility] [place] [facility] [address] [facility] [id number] [place] [address] Jul, [facility] [place] [facility] [address] [facility] [id number] [place] [address] Apr, [facility] [address] [facility] [id number] [place] [id number] Apr, [facility] [place] [facility] [address] [facility] [id number][place] [address] Apr, [facility] [address] [facility] [id number] [place] [id number] Apr, [facility] [place] [facility] [address] [facility] [id number] [place] [address] Apr, [facility] [address] [facility] [id number] [place] [id number] Mar, [facility] [place] [facility] [address] [facility] [id number] [place] [address] Mar, [facility] [address] [id number] [place] [id number] Mar, [facility] [place] [facility] [address] [id number] [place] [address] Mar, [facility] [address] [id number] [place] [id number] February, [facility] [place] [facility] [address] [facility] [id number] [place] [address] February, [facility] [place] [facility] [address] [facility] [id number] [place] [address] February, [facility] [address] [facility] [id number] [place] [id number] February, [facility] [place] [facility] [address] [id number] [place] [address] February, [facility] [address] [facility] [id number] [place] [id number] February, [facility] [place] [facility] [id number] [address] February, [facility] [place] [facility] [address] [facility] [id number] [place] [address] Jan, [facility] [place] [facility] [address] [facility] [id number] [place] [address] Jan, [facility] [place] [facility] [address] [facility] [id number], [place] [address] Jan, [facility] [address] [facility] [id number] [place] [id number] Jan, [facility] [place] [facility] [address] [id number] [place] [address] Jan, [facility] [address] [facility] [id number] [place] [id number] Jan, [facility] [place] [facility] [address] [id number] [place] [address] Jan, [facility] [address] [facility] [id number] [place] [id number] Jan, [facility] [place] [facility] [address] [facility] [id number][place] [address] Jan, [facility] [place] [facility] [address] [facility] [id number] [place] [address] Jan, [facility] [place] [facility] [address] [facility] [id number] [place] [address] Jan, [facility] [place] [facility] [address] [facility] [id number] [place] [address] Jan, [facility] [address] [id number] [place] [id number] Jan, [facility] [address] [id number] [place] [id number] Jan, [facility] [place] [facility] [address] [facility] [id number] [place] [address] Jan, [facility] [address] [id number] [place] [id number] Jan, [facility] [place] [facility] [address] [facility] [id number][place] [address] Jan, [facility] [address] [id number] [place] [id number] Jan, [facility] [place] [facility] [address] [facility] [id number], [place] [address] Jan, [facility] [address] [id number] [place] 3[address] Dec, [facility] [place] [facility] [address] [facility] [id number], [place] [address] Dec, [facility] [address] [id number] [place] [id number] Dec, [facility] [place] [facility] [address] [facility] [id number] [place] [address] Dec, [facility] [address] [id number] [place] [id number] Dec, [facility] [place] [facility] [address] [facility] [id number], [place] [address] Dec, [facility] [address] [id number] [place] [id number] Dec, [facility] [place] [facility] [address] [facility] [id number][place] [address] Dec, [facility] [address] [facility] [id number] [place] [id number] Nov, [facility] [place] [facility] [address] [facility] [id number] [place] [address] Nov, [facility] [address] [facility] [id number] [place] [id number] Nov, [facility] [place] [facility] [address] [facility] [id number] [place] [address] Nov, [facility] [place] [facility] [id number] [address] Nov, [facility] [place] [facility] [id number] [place] [address] Nov, [facility] [place] [facility] [address] [facility] [id number] [place] [address] Nov, [facility] [place] [facility] [address] [id number] [place] [address] Nov, [facility] [address] [id number] [place] [id number] Oct, [facility] [place] [facility] [address] [id number] [address] Oct, [facility] [place] [facility] [address] [facility] [id number], [place] [address] Oct, [facility] [address] [facility] [id number] [place] [id number] Oct, [facility] [place] [facility] [address] [facility] [id number] [place] [address] Oct, [facility] [address] [facility] [id number] [place] [id number] Oct, [facility] [place] [facility] [address] [facility] [id number], [place] [address] Oct, [facility] [address] [facility] [id number] [place] [id number] Aug, [facility] [place] [facility] [address] [facility] [id number], [place] [address] Aug, [facility] [address] [facility] [id number] [place] [id number] Jul, [facility] [place] [facility] [id number] [place] [address] Mar, [facility] [address] [facility] [id number] [place] [id number] Mar, [facility] [id number] [place] [address] Mar, [facility] [id number] [place] [id number] Jan, [facility] [id number] [place] [id number] Sep, [facility] [id number] [address] Sep, [facility] [address] [facility] [id number] [place] [id number] May, [facility] [address] [id number] [place] [id number] Apr, [facility] [address] [id number] [place] [id number] Mar, [facility] [address] [facility] [id number] [place] [id number] Mar, [facility] [address] [id number] [place] [id number] February, [facility] [address] [facility] [id number] [place] [id number] Jan, [facility] [place] [facility] [id number] [address] Mar, [facility] [facility] [id number] [address] Sep, [facility] [id number] [address] Aug, [facility] [id number] [address] Aug, [facility] [id number] [address] Aug, [facility] [id number] [address] Aug, [facility] [id number] [address] Aug, [facility] [id number] [address] Jul, [facility] [id number] [address] Apr, IMMUNIZATIONS No Known Immunizations SOCIAL HISTORY Never Assessed [place]AS[place] [facility] [place] V[place] SIGNS MEDICATIONS Unknown Medications RESULTS No Results PROCEDURES [...]
--- OUTSIDE RECORDS SUMMARY | 2019-04-19 10:23 | XMS REPORT ---
Author Author Migration, Doctor Organization [facility] Address Unknown Phone Unavailable Care Team Providers Care [employer] Supervisor Name Role Phone Migration, Doctor Unavailable Unavailable PROBLEMS Type Condition ICD9-CM Code WKE87-CS Code Onset Dates Condition Status SNOMED Code Problem OCD (obsessive compulsive disorder) F42 Active 542277181 Problem Herniated nucleus pulposus M51.9 Active 04139637 Problem Acquired hypothyroidism E03.9 Active 259219156 Problem Anxiety F41.9 Active 13850811 Problem Cervicalgia M54.2 Active 06121024 Problem Moderate episode of recurrent major depressive disorder F33.1 Active 360909655 Problem Plantar fasciitis M72.2 Active 024279077 Problem Polyneuropathy G62.9 Active 81153839 ALLERGIES No Information ENCOUNTERS Encounter Location Date Diagnosis [address] [id number] [place] [address] [phone] Jan, Polyneuropathy G62.9 [address] [id number] [place] [address] [phone] Dec, Herniated nucleus pulposus M51.9 [address] [id number] [place] [address] [id number] Dec, Long-term use of high-risk medication Z79.899 and Lumbar radiculopathy M54.[address] [place] [address] [id number] Nov, Polyneuropathy G62.9 ; Dermatitis L30.9 and Herniated nucleus pulposus M51.9 [address] [id number] [place] [address] [id number] Nov, [address] [place] [id number] [place] [address] [phone] Oct, Herniated nucleus pulposus M51.9 [address] [place] [address] [id number] Oct, [address] [place] [id number] [place] [address] [id number] Sep, [facility] [id number] [place] [address] [id number] Sep, Herniated nucleus pulposus M51.9 and Acute cystitis with hematuria N30.01 [facility] [id number] [place] [address] [id number] Aug, Herniated nucleus pulposus M51.9 [place] [id number] [place] [address] [id number] Jul, [place] [id number] [place] [address] [id number] Jul, Mass of right upper extremity R22.31 and Foreign body in right foot, initial encounter S90.851A [place] [id number] [place] [address] [id number] Jul, Foreign body in right foot, initial encounter S90.851A [place] [id number] [place] [address] [id number] Jul, Acquired hypothyroidism E03.9 [place] [id number] [place] [address] [id number] Jul, Moderate episode of recurrent major depressive disorder F33.1 ; Herniated nucleus pulposus M51.9 ; Cervicalgia M54.2 ; Polyneuropathy G62.9 and Acquired hypothyroidism E03.9 [place] [id number] [place] [address] [id number] Jun, [place] [id number] [place] [address] [id number] Jun, Herniated nucleus pulposus M51.9 [place] [id number] [id number] May, Herniated nucleus pulposus M51.9 [place] [id number] [place] [address] [id number] Apr, Herniated nucleus pulposus M51.9 [place] [id number] [place] [address] [id number] Apr, [place] [id number] [place] [address] [id number] Apr, Acquired hypothyroidism E03.9 [place] [id number] [place] [address] [phone] Apr, Acquired hypothyroidism E03.9 [place] [id number] [place] [address] [id number] Apr, [place] [id number] [place] [address] [id number] Mar, Herniated nucleus pulposus M51.9 and Nodule, subcutaneous R22.9 [place] [id number] [place] [address] [id number] Mar, Herniated nucleus pulposus M51.9 [address] [place] [id number] [place] [address] [id number] February, Herniated nucleus pulposus M51.9 ; Polyneuropathy G62.9 and Anxiety F41.[address] [id number] Jan, Herniated nucleus pulposus M51.9 ; Moderate episode of recurrent major depressive disorder F33.1 and Acquired hypothyroidism E03.9 [place] [id number] [place] [address] [id number] Dec, Herniated nucleus pulposus M51.9 [place] [id number] [place] [address] [id number] Nov, Cervicalgia M54.2 and Herniated nucleus pulposus M51.9 [address] [place] [id number] [place] [address] [id number] Oct, Herniated nucleus pulposus M51.9 and OCD (obsessive compulsive disorder) F42 [place] [id number] [place] [address] [phone] Oct, Herniated nucleus pulposus M51.9 [address] [id number] [place] [address] [id number] Aug, Acquired hypothyroidism E03.9 [place] [id number] [place] [address] [phone] Aug, Herniated nucleus pulposus M51.9 and Acquired hypothyroidism E03.9 [facility] [address] [id number], [place] [address] Aug, [facility] [id number] [place] [address] [id number] Jul, Herniated nucleus pulposus M51.9 ; OCD (obsessive compulsive disorder) F42 and Pain of right upper extremity M79.601 [facility] [id number] [place] [address] [id number] Jul, Anxiety F41.9 [facility] [id number] [place] [address] [id number] Jul, [place] [id number] [place] [address] [id number] Jun, OCD (obsessive compulsive disorder) F42 ; Herniated nucleus pulposus M51.9 and Acute cystitis with hematuria N30.01 [address] [id number] [place] [address] [id number] Jun, Anxiety F41.9 [place] [id number] [place] [address] [id number] Jun, [facility] [id number] [place] [address] [id number] May, Acquired hypothyroidism E03.9 [address] [id number] [place] [address] [id number] May, Polyneuropathy G62.9 ; OCD (obsessive compulsive disorder) F42 ; Herniated nucleus pulposus M51.9 ; Screening for lipid disorders Z13.220 ; Long-term use of high- risk medication Z79.899 and Major depressive disorder, recurrent, moderate F33.1 [facility] [address] [id number] [id number] May, Dental examination Z01.20 [place] [id number] [place] [address] [id number] May, Herniated nucleus pulposus M51.9 [address] [place] [address] [id number] May, Herniated nucleus pulposus M51.9 and Anxiety F41.9 [place] [id number] [id number] Apr, Herniated nucleus pulposus M51.9 and Cervicalgia M54.2 [facility] [id number] [place] [address] [id number] Apr, Moderate episode of recurrent major depressive disorder F33.1 [facility] [id number] [place] [address] [id number] Apr, Herniated nucleus pulposus M51.9 [facility] [id number] [place] [address] [id number] Apr, Herniated nucleus pulposus M51.9 [facility] [address] [id number] [place] [address] [id number] Mar, Moderate episode of recurrent major depressive disorder F33.1 [facility] [id number] [place] [address] [id number] Mar, Anxiety F41.9 [place] [id number] [place] [address] [id number] Mar, [facility] [address] [id number] [place] [address] [id number] Mar, Herniated nucleus pulposus M51.9 and Cervicalgia M54.2 [facility] [id number] [place] [address] [phone] February, Acquired hypothyroidism E03.9 [place] [id number] [place] [address] [id number] February, Polyneuropathy G62.9 ; Herniated nucleus pulposus M51.9 ; Cervicalgia M54.2 and Acquired hypothyroidism E03.9 [facility] [address] [id number][place] [phone] Jan, [facility] [address] [id number] [place] [address] [id number] Jan, Cervicalgia M54.2 and Moderate episode of recurrent major depressive disorder F33.1 [facility] [address] [id number][place] [id number] Dec, Cervicalgia M54.2 and Herniated nucleus pulposus M51.9 [facility] [address] [id number][place] [id number] Nov, Lymph nodes enlarged R59.9 [facility] [id number] [place] [address] [id number] Oct, Cervicalgia M54.2 [facility] [address]00565[address], [place] [address] Sep, Polyneuropathy G62.9 [facility] [id number] [place] [address] [id number] Sep, Cervicalgia M54.2 and Herniated nucleus pulposus M51.9 [facility] [id number] [place] [address] [id number] Aug, Lumbar radiculopathy M54.16 and Spinal stenosis at L4-L5 level M48.06 [facility] [address] [id number] [place] [address] [id number] Aug, Cervicalgia M54.2 and Herniated nucleus pulposus M51.9 [facility] [id number] [place] [address] [id number] Jul, [facility] [id number] [place] [address] [id number] Jun, Cervicalgia M54.2 and Herniated nucleus pulposus M51.9 [facility] [id number] [place] [address] [id number] May, Plantar fasciitis M72.2 [facility] [id number] [place] [address] [id number] May, [facility] [id number] [place] [address] [id number] Apr, Screening for lipid disorders Z13.220 ; Long-term use of high-risk medication Z79.899 and Major depressive disorder, recurrent, moderate F33.1 [facility] [id number] [place] [address] [id number] Apr, [facility] [id number] [place] [address] [id number] Mar, Herniated nucleus pulposus M51.9 and Cervicalgia M54.2 [place] [id number] [place] [address] [id number] Mar, Cervicalgia M54.2 and Herniated nucleus pulposus M51.9 [facility] [id number] [place] [address] [id number] February, [place] [id number] [place] [address] [id number] February, Cervicalgia M54.2 and Herniated nucleus pulposus M51.9 [place] [id number] [place] [address] [id number] Dec, Syncope, unspecified syncope type R55 [address] [id number] Dec, Cervicalgia M54.2 ; Herniated nucleus pulposus M51.9 and Moderate episode of recurrent major depressive disorder F33.[address] [id number] Dec, [address] [id number] Dec, Herniated nucleus pulposus M51.9 and Cervicalgia M54.2 [place] [id number] [place] [address] [id number] Nov, [address] [id number] Nov, Herniated nucleus pulposus M51.9 and OCD (obsessive compulsive disorder) F42 [place] [id number] [place] [address] [id number] Sep, Displacement of intervertebral disc, site unspecified, without myelopathy 722.2 ; Cervicalgia 723.1 and Hypothyroidism, unspecified type E03.9 [place] [id number] [place] [address] [id number] Sep, [address] [id number] Jun, Displacement of intervertebral disc, site unspecified, without myelopathy 722.2 and Cervicalgia 723.1 [place] [id number] [place] [address] [id number] Mar, Displacement of intervertebral disc, site unspecified, without myelopathy 722.2 and Shingles 053.9 [facility] [id number] [id number] February, Shingles 053.9 [facility] [id number], [place] [id number] February, Displacement of intervertebral disc, site unspecified, without myelopathy 722.2 ; Tension headache 307.81 and Cervicalgia 723.1 [facility] [id number], [place] [id number] February, [facility] [id number] [place] [address] [id number] February, [facility] [id number] [place] [address] [id number] February, [facility] [id number] [place] [address] Jan, [facility] [id number] [place] [address] Jan, [facility] [id number] [place] [address] [id number] Jan, [facility] [id number] [place] [phone] Jan, [facility] [id number] [place] [address] Jan, [facility] [id number], [place] [id number] Dec, [facility] [id number] [place] [phone] Dec, [facility] [id number], [place] [id number] Dec, [facility] [id number] [place] [phone] Dec, [facility] [id number] [place] [address] [id number] Nov, [facility] [place] [facility] [address] [facility] [id number], [place] [address] Nov, [facility] [address] [facility] [id number][place] [id number] Oct, [facility] [place] [facility] [address] [facility] [id number], [place] [address] Oct, [facility] [address] [id number] [place] [id number] Oct, [facility] [place] [facility] [address] [facility] [id number], [place] [address] Oct, [facility] [address] [id number] [place] [id number] Oct, [facility] [address] [facility] [id number][place] [id number] Oct, [facility] [place] [facility] [address]00565100[place], [place] [address] Oct, [facility] [place] [facility] [address] [facility] [id number], [place] [address] Oct, [facility] [address] [facility] [id number], [place] [id number] Oct, [facility] [place] [facility] [address] [facility] [id number], [place] [address] Oct, [facility] [address] [facility] [id number], [place] [id number] Oct, [facility] [place] [facility] [address] [facility] [id number], [place] [address] Oct, [facility] [address] [facility] [id number], [place] [id number] Sep, [facility] [place] [facility] [address] [facility] [id number], [place] [address] Sep, [facility] [address] [facility] [id number], [place] [id number] Aug, [facility] [place] [facility] [address] [facility] [id number], [place] [address] Aug, [facility] [place] [facility] [address] [id number] [place] [address] Aug, [facility] [address] [id number] [place] [id number] Aug, [facility] [address] [id number] [place] [id number] Aug, [facility] [place] [facility] [address] [id number] [place] [address] Aug, [facility] [address] [id number] [place] [id number] Jul, [facility] [place] [facility] [address] [id number] [place] [address] Jul, [facility] [address] [id number] [place] [id number] Jul, [facility] [place] [facility] [address] [facility] [id number], [place] [address] Jul, [facility] [place] [facility] [address] [facility] [id number], [place] [address] Apr, [facility] [address] [id number] [place] [id number] Apr, [facility] [place] [facility] [address] [facility] [id number], [place] [address] Apr, [facility] [address] [id number], [place] [id number] Apr, [facility] [place] [facility] [address] [facility] [id number], [place] [address] Apr, [facility] [address] [id number] [place] [id number] Mar, [facility] [place] [facility] [address] [facility] [id number], [place] [address] Mar, [facility] [address] [id number] [place] [id number] Mar, [facility] [place] [facility] [address] [facility] [id number], [place] [address] Mar, [facility] [address] [facility] [id number] [place] [id number] February, [facility] [place] [facility] [address] [facility] [id number] [place] [address] February, [facility] [place] [facility] [address] [facility] [id number] [place] [address] February, [facility] [address] [facility] [id number] [place] [id number] February, [facility] [place] [facility] [address] [id number] [place] [address] February, [facility] [address] [facility] [id number] [place] [id number] February, [facility] [place] [facility] [address] [facility] [id number] [place] [address] February, [facility] [place] [facility] [address] [facility] [id number], [place] [address] Jan, [facility] [place] [facility] [address] [facility] [id number] [place] [address] Jan, [facility] [place] [facility] [address] [facility] [id number], [place] [address] Jan, [facility] [address] [facility] [id number] [place] [id number] Jan, [facility] [place] [facility] [address] [facility] [id number], [place] [address] Jan, [facility] [address] [facility] [id number], [place] [id number] Jan, [facility] [place] [facility] [address] [facility] [id number] [place] [address] Jan, [facility] [address] [facility] [id number] [place] [id number] Jan, [facility] [place] [facility] [address] [facility] [id number], [place] [address] Jan, [facility] [place] [facility] [address] [facility] [id number] [place] [address] Jan, [facility] [place] [facility] [address] [facility] [id number] [place] [address] Jan, [facility] [place] [facility] [address] [facility] [id number] [place] [address] Jan, [facility] [address] [id number] [place] [id number] Jan, [facility] [address] [facility] [id number] [place] [id number] Jan, [facility] [place] [facility] [address] [facility] [id number] [place] [address] Jan, [facility] [address] [facility] [id number] [place] [id number] Jan, [facility] [place] [facility] [address] [id number], [place] [address] Jan, [facility] [address] [facility] [id number] [place] [id number] Jan, [facility] [place] [facility] [address] [facility] [id number], [place] [address] Jan, [facility] [address] [facility] [id number], [place] [id number] Dec, [facility] [place] [facility] [address] [facility] [id number], [place] [address] Dec, [facility] [address] [facility] [id number], [place] [address]79[address] Dec, [facility] [place] [facility] [address] [facility] [id number] [place] [address] Dec, [facility] [address] [facility] [id number] [place] [id number] Dec, [facility] [place] [facility] [address] [facility] [id number] [place] [address] Dec, [facility] [address] [facility] [id number] [place] 670980115 Dec, [facility] [place] [facility] [address] [facility] [id number] [place] [address] Dec, [facility] [address] [facility] [id number] [place] [id number] Nov, [facility] [place] [facility] [address] [facility] [id number] [place] [address] Nov, [facility] [address] [facility] [id number] [place] [id number] Nov, [facility] [place] [facility] [address] [facility] [id number] [place] [address] Nov, [facility] [place] [facility] [address] [facility] [id number] [place] [address] Nov, [facility] [place] [facility] [address] [facility] [id number] [place] [address] Nov, [facility] [place] [facility] [id number] [place] [address] Nov, [facility] [place] [facility] [address] [id number] [place] [address] Nov, [facility] [address] [id number] [id number] Oct, [facility] [place] [facility] [address] [id number] [address] Oct, [facility] [place] [facility] [address] [id number] [address] Oct, [facility] [address] [facility] [id number] [id number] Oct, [facility] [place] [facility] [address] [facility] [id number][place] [address] Oct, [facility] [address] [facility] [id number] [place] [id number] Oct, [facility] [place] [facility] [address] [facility] [id number], [place] [address] Oct, [facility] [address] [id number] [place] [id number] Aug, [facility] [address] [facility] [id number], [place] [address] Aug, [facility] [address] [id number] [place] [id number] Jul, [facility] [address] [facility] [id number] [place] [address] Mar, [facility] [address] [id number] [place] [id number] Mar, [facility] [address] [facility] [id number] [place] [address] Mar, [facility] [address] [id number] [place] [id number] Jan, [facility] [address] [id number] [place] [id number] Sep, [facility] [id number] [place] [address] Sep, [facility] [address] [id number] [place] [id number] May, [facility] [address] [id number] [place] [id number] Apr, [facility] [address] [id number] [place] [id number] Mar, [facility] [address] [id number] [place] [id number] Mar, [facility] [address] [id number] [place] [id number] February, [facility] [address] [id number] [place] [id number] Jan, [facility] [place] [facility] [address] [facility] [id number] [place] [address] Mar, [facility] [place] [facility] [address] [id number] [address] Sep, [facility] [place] [facility] [id number] [place] [address], [place] [address] Aug, [facility] [address] [id number] [address] Aug, [facility] [address] [id number] [address] Aug, [facility] [address] [id number] [address] Aug, [facility] [address] [id number] [address] Aug, [facility] [id number] [address] Jul, [facility] [address] [id number] [address] Apr, IMMUNIZATIONS No Known Immunizations SOCIAL HISTORY Never Assessed REASON FOR VISIT [facility] [place] PLAN OF CARE VITAL SIGNS MEDICATIONS Unknown [...]
--- OUTSIDE RECORDS SUMMARY | 2019-04-19 10:24 | XMS REPORT ---
Author Author Migration, Doctor Organization [facility] Address Unknown Phone Unavailable Care Team Providers Care Insurance Application Investigator Name Role Phone Migration, Doctor Unavailable Unavailable PROBLEMS Type Condition ICD9-CM Code DKD25-ST Code Onset Dates Condition Status SNOMED Code Problem OCD (obsessive compulsive disorder) F42 Active 996382986 Problem Herniated nucleus pulposus M51.9 Active 64205967 Problem Acquired hypothyroidism E03.9 Active 453508617 Problem Anxiety F41.9 Active 21010786 Problem Cervicalgia M54.2 Active 97334533 Problem Moderate episode of recurrent major depressive disorder F33.1 Active 187832684 Problem Plantar fasciitis M72.2 Active 344515897 Problem Polyneuropathy G62.9 Active 18759588 ALLERGIES No Information ENCOUNTERS Encounter Location Date Diagnosis [place] [id number] [place] [address] [id number] Jan, Polyneuropathy G62.9 [address] [place] [id number] [place] [address] [id number] Dec, Herniated nucleus pulposus M51.9 [place] [id number] [place] [address] [id number] Dec, Long-term use of high-risk medication Z79.899 and Lumbar radiculopathy M54.[id number] [place] [address] [id number] Nov, Polyneuropathy G62.9 ; Dermatitis L30.9 and Herniated nucleus pulposus M51.9 [address] [id number] [place] [address] [id number] Nov, [place] [id number] [place] [address] [id number] Oct, Herniated nucleus pulposus M51.[id number] [place] [address] [id number] Oct, [place] [id number] [place] [address] [id number] Sep, [facility] [id number] [place] [address] [id number] Sep, Herniated nucleus pulposus M51.9 and Acute cystitis with hematuria N30.01 [facility] [id number] [place] [address] [id number] Aug, Herniated nucleus pulposus M51.9 [place] [id number] [place] [address] [id number] Jul, [place] [id number] [place] [address] [id number] Jul, Mass of right upper extremity R22.31 and Foreign body in right foot, initial encounter S90.851A [place] [id number] [place] [address] [id number] Jul, Foreign body in right foot, initial encounter S90.851A [place] [id number] [place] [address] [id number] Jul, Acquired hypothyroidism E03.9 [place] [id number] [place] [address] [id number] Jul, Moderate episode of recurrent major depressive disorder F33.1 ; Herniated nucleus pulposus M51.9 ; Cervicalgia M54.2 ; Polyneuropathy G62.9 and Acquired hypothyroidism E03.9 [place] [id number] [place] [address] [id number] Jun, [place] [id number] [place] [address] [id number] Jun, Herniated nucleus pulposus M51.9 [place] [id number] [place] [id number] May, Herniated nucleus pulposus M51.9 [place] [id number] [place] [address] [id number] Apr, Herniated nucleus pulposus M51.9 [place] [id number] [place] [address] [id number] Apr, [place] [id number] [place] [address] [id number] Apr, Acquired hypothyroidism E03.9 [place] [id number] [place] [address] [id number] Apr, Acquired hypothyroidism E03.9 [place] [id number] [place] [address] [id number] Apr, [place] [id number] [place] [address] [id number] Mar, Herniated nucleus pulposus M51.9 and Nodule, subcutaneous R22.9 [place] [id number] [place] [address] [id number] Mar, Herniated nucleus pulposus M51.9 [place] [id number] [place] [address] [id number] February, Herniated nucleus pulposus M51.9 ; Polyneuropathy G62.9 and Anxiety F41.[address] [id number] Jan, Herniated nucleus pulposus M51.9 ; Moderate episode of recurrent major depressive disorder F33.1 and Acquired hypothyroidism E03.9 [place] [id number] [place] [address] [id number] Dec, Herniated nucleus pulposus M51.9 [place] [id number] [place] [address] [id number] Nov, Cervicalgia M54.2 and Herniated nucleus pulposus M51.9 [place] [id number] [place] [address] [id number] Oct, Herniated nucleus pulposus M51.9 and OCD (obsessive compulsive disorder) F42 [place] [id number] [place] [address] [id number] Oct, Herniated nucleus pulposus M51.9 [place] [id number] [place] [address] [id number] Aug, Acquired hypothyroidism E03.9 [place] [id number] [place] [address] [id number] Aug, Herniated nucleus pulposus M51.9 and Acquired hypothyroidism E03.9 [facility] [address] [id number] [address] Aug, [facility] [id number] [place] [address] [id number] Jul, Herniated nucleus pulposus M51.9 ; OCD (obsessive compulsive disorder) F42 and Pain of right upper extremity M79.601 [facility] [id number] [place] [address] [id number] Jul, Anxiety F41.9 [facility] [id number] [place] [address] [id number] Jul, [place] [id number] [place] [address] [id number] Jun, OCD (obsessive compulsive disorder) F42 ; Herniated nucleus pulposus M51.9 and Acute cystitis with hematuria N30.01 [place] [id number] [place] [address] [id number] Jun, Anxiety F41.9 [place] [id number] [place] [address] [id number] Jun, [facility] [id number] [place] [address] [id number] May, Acquired hypothyroidism E03.9 [place] [id number] [place] [address] [id number] May, Polyneuropathy G62.9 ; OCD (obsessive compulsive disorder) F42 ; Herniated nucleus pulposus M51.9 ; Screening for lipid disorders Z13.220 ; Long-term use of high- risk medication Z79.899 and Major depressive disorder, recurrent, moderate F33.1 [facility] [address] [id number] [id number] May, Dental examination Z01.20 [place] [id number] [place] [address] [id number] May, Herniated nucleus pulposus M51.9 [address] [place] [address] [id number] May, Herniated nucleus pulposus M51.9 and Anxiety F41.9 [place] [id number] [id number] Apr, Herniated nucleus pulposus M51.9 and Cervicalgia M54.2 [facility] [id number] [place] [address] [id number] Apr, Moderate episode of recurrent major depressive disorder F33.1 [facility] [address] [id number] [place] [address] [id number] Apr, Herniated nucleus pulposus M51.9 [facility] [id number] [place] [address] [id number] Apr, Herniated nucleus pulposus M51.9 [facility] [address] [id number] [place] [address] [id number] Mar, Moderate episode of recurrent major depressive disorder F33.1 [facility] [id number] [place] [address] [id number] Mar, Anxiety F41.9 [place] [id number] [place] [address] [id number] Mar, [facility] [address] [id number] [place] [address] [id number] Mar, Herniated nucleus pulposus M51.9 and Cervicalgia M54.2 [facility] [id number] [place] [address] [id number] February, Acquired hypothyroidism E03.9 [place] [id number] [place] [address] [id number] February, Polyneuropathy G62.9 ; Herniated nucleus pulposus M51.9 ; Cervicalgia M54.2 and Acquired hypothyroidism E03.9 [facility] [address] [id number] [place] [id number] Jan, [facility] [id number] [place] [address] [id number] Jan, Cervicalgia M54.2 and Moderate episode of recurrent major depressive disorder F33.1 [facility] [address] [id number] [place] [id number] Dec, Cervicalgia M54.2 and Herniated nucleus pulposus M51.9 [facility] [address] [id number] [place] [id number] Nov, Lymph nodes enlarged R59.9 [facility] [id number] [place] [address] [id number] Oct, Cervicalgia M54.2 [facility] [address]005[address]100[place] [address] Sep, Polyneuropathy G62.9 [facility] [id number] [place] [address] [id number] Sep, Cervicalgia M54.2 and Herniated nucleus pulposus M51.9 [facility] [id number] [place] [address] [id number] Aug, Lumbar radiculopathy M54.16 and Spinal stenosis at L4-L5 level M48.06 [facility] [address] [id number] [place] [address] [id number] Aug, Cervicalgia M54.2 and Herniated nucleus pulposus M51.9 [facility] [id number] [place] [address] [id number] Jul, [facility] [id number] [place] [address] [id number] Jun, Cervicalgia M54.2 and Herniated nucleus pulposus M51.9 [facility] [id number] [place] [address] [id number] May, Plantar fasciitis M72.2 [facility] [id number] [place] [address] [id number] May, [facility] [id number] [place] [address] [id number] Apr, Screening for lipid disorders Z13.220 ; Long-term use of high-risk medication Z79.899 and Major depressive disorder, recurrent, moderate F33.1 [facility] [id number] [place] [address] [id number] Apr, [facility] [id number] [place] [address] [id number] Mar, Herniated nucleus pulposus M51.9 and Cervicalgia M54.2 [place] [id number] [place] [address] [id number] Mar, Cervicalgia M54.2 and Herniated nucleus pulposus M51.9 [facility] [id number] [place] [address] [id number] February, [place] [id number] [place] [address] [id number] February, Cervicalgia M54.2 and Herniated nucleus pulposus M51.9 [place] [id number] [place] [address] [id number] Dec, Syncope, unspecified syncope type R55 [address] [id number] Dec, Cervicalgia M54.2 ; Herniated nucleus pulposus M51.9 and Moderate episode of recurrent major depressive disorder F33.[address] [id number] Dec, [address] [id number] Dec, Herniated nucleus pulposus M51.9 and Cervicalgia M54.2 [place] [id number] [place] [address] [id number] Nov, [address] [id number] Nov, Herniated nucleus pulposus M51.9 and OCD (obsessive compulsive disorder) F42 [place] [id number] [place] [address] [id number] Sep, Displacement of intervertebral disc, site unspecified, without myelopathy 722.2 ; Cervicalgia 723.1 and Hypothyroidism, unspecified type E03.9 [place] [id number] [place] [address] [id number] Sep, [address] [id number] Jun, Displacement of intervertebral disc, site unspecified, without myelopathy 722.2 and Cervicalgia 723.1 [place] [id number] [place] [address] [id number] Mar, Displacement of intervertebral disc, site unspecified, without myelopathy 722.2 and Shingles 053.9 [facility] [facility] [id number] [place] [id number] February, Shingles 053.9 [facility] [place] [facility] [id number] [place] [id number] February, Displacement of intervertebral disc, site unspecified, without myelopathy 722.2 ; Tension headache 307.81 and Cervicalgia 723.1 [facility] [id number] [place] [id number] February, [facility] [id number] [place] [address] [id number] February, [facility] [id number] [place] [address] [id number] February, [facility] [id number] [place] [address] Jan, [facility] [id number] [place] [address] Jan, [facility] [id number] [place] [address] [id number] Jan, [facility] [id number] [place] [address] Jan, [facility] [id number] [place] [address] Jan, [facility] [id number] [place] [id number] Dec, [facility] [id number] [place] [address] Dec, [facility] [id number] [place] [id number] Dec, [facility] [id number] [place] [address] Dec, [facility] [place] [facility] [id number] [place] [address] [id number] Nov, [facility] [place] [facility] [address] [facility] [id number] [place] [address] Nov, [facility] [address] [facility] [id number] [place] [id number] Oct, [facility] [place] [facility] [address] [facility] [id number] [place] [address] Oct, [facility] [address] [id number] [place] [id number] Oct, [facility] [place] [facility] [address] [facility] [id number] [place] [address] Oct, [facility] [address] [id number] [place] [id number] Oct, [facility] [address] [facility] [id number] [place] [id number] Oct, [facility] [place] [facility] [address]00565100[place] [address] Oct, [facility] [place] [facility] [address] [facility] [id number] [place] [address] Oct, [facility] [address] [facility] [id number] [place] [id number] Oct, [facility] [place] [facility] [address] [facility] [id number] [place] [address] Oct, [facility] [address] [facility] [id number] [place] [id number] Oct, [facility] [place] [facility] [address] [facility] [id number] [place] [address] Oct, [facility] [address] [facility] [id number] [place]IVER[place] [id number] Sep, [facility] [place] [facility] [address] [facility] [id number] [place] [address] Sep, [facility] [address] [facility] [id number] [place]IVER[place] [id number] Aug, [facility] [place] [facility] [address] [facility] [id number] [place] [address] Aug, [facility] [place] [facility] [address] [id number] [place] [address] Aug, [facility] [address] [id number] [place] [id number] Aug, [facility] [address] [id number] [place] [id number] Aug, [facility] [place] [facility] [address] [id number] [place] [address] Aug, [facility] [address] [id number] [place] [id number] Jul, [facility] [place] [facility] [address] [id number] [place] [address] Jul, [facility] [address] [id number] [place] [id number] Jul, [facility] [place] [facility] [address] [facility] [id number] [place] [address] Jul, [facility] [place] [facility] [address] [facility] [id number] [place] [address] Apr, [facility] [address] [id number] [place] [id number] Apr, [facility] [place] [facility] [address] [facility] [id number] [place] [address] Apr, [facility] [address] [id number] [place] [id number] Apr, [facility] [place] [facility] [address] [facility] [id number] [place] [address] Apr, [facility] [address] [id number] [place] [id number] Mar, [facility] [place] [facility] [address] [facility] [id number] [place] [address] Mar, [facility] [address] [id number] [place] [id number] Mar, [facility] [place] [facility] [address] [facility] [id number] [place] [address] Mar, [facility] [address] [facility] [id number] [place] [id number] February, [facility] [place] [facility] [address] [facility] [id number] [place] [address] February, [facility] [place] [facility] [address] [facility] [id number] [place] [address] February, [facility] [address] [facility] [id number] [place] [id number] February, [facility] [place] [facility] [address] [id number] [place] [address] February, [facility] [address] [facility] [id number] [place] [id number] February, [facility] [place] [facility] [address] [facility] [id number] [place] [address] February, [facility] [place] [facility] [address] [facility] [id number] [place] [address] Jan, [facility] [place] [facility] [address] [facility] [id number] [place] [address] Jan, [facility] [place] [facility] [address] [facility] [id number] [place] [address] Jan, [facility] [address] [facility] [id number] [place] [id number] Jan, [facility] [place] [facility] [address] [facility] [id number] [place] [address] Jan, [facility] [address] [facility] [id number] [place] [id number] Jan, [facility] [place] [facility] [address] [facility] [id number] [place] [address] Jan, [facility] [address] [facility] [id number] [place] [id number] Jan, [facility] [place] [facility] [address] [facility] [id number] [place] [address] Jan, [facility] [place] [facility] [address] [facility] [id number] [place] [address] Jan, [facility] [place] [facility] [address] [facility] [id number] [place] [address] Jan, [facility] [place] [facility] [address] [facility] [id number] [place] [address] Jan, [facility] [address] [id number] [place] [id number] Jan, [facility] [address] [facility] [id number] [place] [id number] Jan, [facility] [place] [facility] [address] [facility] [id number] [place] [address] Jan, [facility] [address] [facility] [id number] [place] [id number] Jan, [facility] [place] [facility] [address] [id number] [address] Jan, [facility] [address] [facility] [id number] [place] [id number] Jan, [facility] [place] [facility] [address] [facility] [id number] [place] [address] Jan, [facility] [address] [facility] [id number] [id number] Dec, [facility] [place] [facility] [address] [facility] [id number] [address] Dec, [facility] [address] [facility] [id number] [place] [id number] Dec, [facility] [place] [facility] [address] [facility] [id number] [place] [address] Dec, [facility] [address] [facility] [id number] [place] [id number] Dec, [facility] [place] [facility] [address] [facility] [id number] [place] [address] Dec, [facility] [address] [facility] [id number] [place] [id number] Dec, [facility] [place] [facility] [address] [facility] [id number] [place] [address] Dec, [facility] [address] [facility] [id number] [place] [id number] Nov, [facility] [place] [facility] [address] [facility] [id number] [place] [address] Nov, [facility] [address] [facility] [id number] [place] [id number] Nov, [facility] [place] [facility] [address] [facility] [id number] [place] [address] Nov, [facility] [place] [facility] [address] [facility] [id number] [place] [address] Nov, [facility] [place] [facility] [address] [facility] [id number] [place] [address] Nov, [facility] [place] [facility] [id number] [place] [address] Nov, [facility] [place] [facility] [id number] [place] [address] Nov, [facility] [address] [id number] [id number] Oct, [facility] [place] [facility] [address] [id number] [address] Oct, [facility] [place] [facility] [address] [id number] [address] Oct, [facility] [address] [facility] [id number] [place] [id number] Oct, [facility] [place] [facility] [address] [facility] [id number] [address] Oct, [facility] [address] [facility] [id number] [place] [id number] Oct, [facility] [place] [facility] [address] [facility] [id number] [place] [address] Oct, [facility] [address] [id number] [place] [id number] Aug, [facility] [address] [facility] [id number] [address] Aug, [facility] [address] [id number] [place] [id number] Jul, [facility] [address] [facility] [id number] [place] [address] Mar, [facility] [address] [id number] [place] [id number] Mar, [facility] [address] [facility] [id number] [place] [id number] Mar, [facility] [address] [id number] [place] [id number] Jan, [facility] [address] [id number] [place] [id number] Sep, [facility] [id number] [place] [id number] Sep, [facility] [address] [id number] [place] [id number] May, [facility] [address] [id number] [place] [id number] Apr, [facility] [address] [id number] [place] [id number] Mar, [facility] [address] [id number] [place] [id number] Mar, [facility] [address] [id number] [place] [id number] February, [facility] [address] [id number] [place] [id number] Jan, [facility] [address] [facility] [id number] [place] [id number] Mar, [facility] [address] [id number] [address] Sep, [facility] [id number] [place] [address], [place] [address] Aug, [facility] [address] [id number] [address] Aug, [facility] [address] [id number] [address] Aug, [facility] [address] [id number] [address] Aug, [facility] [address] [id number] [address] Aug, [facility] [id number] [address] Jul, [facility] [address] [id number] [address] Apr, IMMUNIZATIONS No Known Immunizations SOCIAL HISTORY Never Assessed REASON FOR VISIT [facility] [place] VITAL SIGNS MEDICATIONS Unknown [...]
--- OUTSIDE RECORDS SUMMARY | 2019-04-19 10:24 | XMS REPORT ---
Author Author Migration, Doctor Organization [facility] Address Unknown Phone Unavailable Care Team Providers Care Line Cook Name Role Phone Migration, Doctor Unavailable Unavailable PROBLEMS Type Condition ICD9-CM Code OMG79-VX Code Onset Dates Condition Status SNOMED Code Problem OCD (obsessive compulsive disorder) F42 Active 837426450 Problem Herniated nucleus pulposus M51.9 Active 93938097 Problem Acquired hypothyroidism E03.9 Active 832664979 Problem Anxiety F41.9 Active 19182420 Problem Cervicalgia M54.2 Active 34680042 Problem Moderate episode of recurrent major depressive disorder F33.1 Active 836070872 Problem Plantar fasciitis M72.2 Active 690176492 Problem Polyneuropathy G62.9 Active 71590933 ALLERGIES No Information ENCOUNTERS Encounter Location Date Diagnosis [place] [id number] [place] [address] [id number] Jan, Polyneuropathy G62.9 [place] [id number] [place] [address] [id number] Dec, Herniated nucleus pulposus M51.9 [place] [id number] [place] [address] [id number] Dec, Long-term use of high-risk medication Z79.899 and Lumbar radiculopathy M54.[id number] [place] [address] [id number] Nov, Polyneuropathy G62.9 ; Dermatitis L30.9 and Herniated nucleus pulposus M51.9 [place] [id number] [place] [address] [id number] Nov, [place] [id number] [place] [address] [id number] Oct, Herniated nucleus pulposus M51.[address] [place] [address] [id number] Oct, [place] [id number] [place] [address] [id number] Sep, [facility] [id number] [place] [address] [id number] Sep, Herniated nucleus pulposus M51.9 and Acute cystitis with hematuria N30.01 [facility] [id number] [place] [address] [id number] Aug, Herniated nucleus pulposus M51.9 [place] [id number] [place] [address] [id number] Jul, [place] [id number] [place] [address] [id number] Jul, Mass of right upper extremity R22.31 and Foreign body in right foot, initial encounter S90.851A [place] [id number] [place] [address] [id number] Jul, Foreign body in right foot, initial encounter S90.851A [place] [id number] [place] [address] [id number] Jul, Acquired hypothyroidism E03.9 [place] [id number] [place] [address] [id number] Jul, Moderate episode of recurrent major depressive disorder F33.1 ; Herniated nucleus pulposus M51.9 ; Cervicalgia M54.2 ; Polyneuropathy G62.9 and Acquired hypothyroidism E03.9 [place] [id number] [place] [address] [id number] Jun, [place] [id number] [place] [address] [id number] Jun, Herniated nucleus pulposus M51.9 [place] [id number] [id number] May, Herniated nucleus pulposus M51.9 [place] [id number] [place] [address] [id number] Apr, Herniated nucleus pulposus M51.9 [place] [id number] [place] [address] [id number] Apr, [place] [id number] [place] [address] [id number] Apr, Acquired hypothyroidism E03.9 [place] [id number] [place] [address] [id number] Apr, Acquired hypothyroidism E03.9 [place] [id number] [place] [address] [id number] Apr, [place] [id number] [place] [address] [id number] Mar, Herniated nucleus pulposus M51.9 and Nodule, subcutaneous R22.9 [place] [id number] [place] [address] [id number] Mar, Herniated nucleus pulposus M51.9 [place] [id number] [place] [address] [id number] February, Herniated nucleus pulposus M51.9 ; Polyneuropathy G62.9 and Anxiety F41.[address] [id number] Jan, Herniated nucleus pulposus M51.9 ; Moderate episode of recurrent major depressive disorder F33.1 and Acquired hypothyroidism E03.9 [place] [id number] [place] [address] [id number] Dec, Herniated nucleus pulposus M51.9 [place] [id number] [place] [address] [id number] Nov, Cervicalgia M54.2 and Herniated nucleus pulposus M51.9 [place] [id number] [place] [address] [id number] Oct, Herniated nucleus pulposus M51.9 and OCD (obsessive compulsive disorder) F42 [place] [id number] [place] [address] [id number] Oct, Herniated nucleus pulposus M51.9 [place] [id number] [place] [address] [id number] Aug, Acquired hypothyroidism E03.9 [place] [id number] [place] [address] [id number] Aug, Herniated nucleus pulposus M51.9 and Acquired hypothyroidism E03.9 [facility] [address] [id number], [place] [address] Aug, [facility] [id number] [place] [address] [id number] Jul, Herniated nucleus pulposus M51.9 ; OCD (obsessive compulsive disorder) F42 and Pain of right upper extremity M79.601 [facility] [id number] [place] [address] [id number] Jul, Anxiety F41.9 [facility] [id number] [place] [address] [id number] Jul, [place] [id number] [place] [address] [id number] Jun, OCD (obsessive compulsive disorder) F42 ; Herniated nucleus pulposus M51.9 and Acute cystitis with hematuria N30.01 [place] [id number] [place] [address] [id number] Jun, Anxiety F41.9 [place] [id number] [place] [address] [id number] Jun, [facility] [id number] [place] [address] [id number] May, Acquired hypothyroidism E03.9 [place] [id number] [place] [address] [id number] May, Polyneuropathy G62.9 ; OCD (obsessive compulsive disorder) F42 ; Herniated nucleus pulposus M51.9 ; Screening for lipid disorders Z13.220 ; Long-term use of high- risk medication Z79.899 and Major depressive disorder, recurrent, moderate F33.1 [facility] [address] [id number] [id number] May, Dental examination Z01.20 [place] [id number] [place] [address] [id number] May, Herniated nucleus pulposus M51.[id number] [place] [address] [id number] May, Herniated nucleus pulposus M51.9 and Anxiety F41.9 [place] [id number] [id number] Apr, Herniated nucleus pulposus M51.9 and Cervicalgia M54.2 [facility] [id number] [place] [address] [id number] Apr, Moderate episode of recurrent major depressive disorder F33.1 [facility] [id number] [place] [address] [id number] Apr, Herniated nucleus pulposus M51.9 [facility] [id number] [place] [address] [id number] Apr, Herniated nucleus pulposus M51.9 [facility] [id number] [place] [address] [id number] Mar, Moderate episode of recurrent major depressive disorder F33.1 [facility] [id number] [place] [address] [id number] Mar, Anxiety F41.9 [place] [id number] [place] [address] [id number] Mar, [facility] [id number] [place] [address] [id number] Mar, Herniated nucleus pulposus M51.9 and Cervicalgia M54.2 [facility] [id number] [place] [address] [id number] February, Acquired hypothyroidism E03.9 [place] [id number] [place] [address] [id number] February, Polyneuropathy G62.9 ; Herniated nucleus pulposus M51.9 ; Cervicalgia M54.2 and Acquired hypothyroidism E03.9 [facility] [address] [id number] [id number] Jan, [facility] [id number] [place] [address] [id number] Jan, Cervicalgia M54.2 and Moderate episode of recurrent major depressive disorder F33.1 [facility] [address] [id number] [id number] Dec, Cervicalgia M54.2 and Herniated nucleus pulposus M51.9 [facility] [address] [id number], [place] [id number] Nov, Lymph nodes enlarged R59.9 [facility] [id number] [place] [address] [id number] Oct, Cervicalgia M54.2 [facility] [address] [address] Sep, Polyneuropathy G62.9 [facility] [id number] [place] [address] [id number] Sep, Cervicalgia M54.2 and Herniated nucleus pulposus M51.9 [facility] [id number] [place] [address] [id number] Aug, Lumbar radiculopathy M54.16 and Spinal stenosis at L4-L5 level M48.06 [facility] [id number] [place] [address] [id number] Aug, Cervicalgia M54.2 and Herniated nucleus pulposus M51.9 [facility] [id number] [place] [address] [id number] Jul, [facility] [id number] [place] [address] [id number] Jun, Cervicalgia M54.2 and Herniated nucleus pulposus M51.9 [facility] [id number] [place] [address] [id number] May, Plantar fasciitis M72.2 [facility] [id number] [place] [address] [id number] May, [facility] [id number] [place] [address] [id number] Apr, Screening for lipid disorders Z13.220 ; Long-term use of high-risk medication Z79.899 and Major depressive disorder, recurrent, moderate F33.1 [facility] [id number] [place] [address] [id number] Apr, [facility] [id number] [place] [address] [id number] Mar, Herniated nucleus pulposus M51.9 and Cervicalgia M54.2 [place] [id number] [place] [address] [id number] Mar, Cervicalgia M54.2 and Herniated nucleus pulposus M51.9 [facility] [id number] [place] [address] [id number] February, [place] [id number] [place] [address] [id number] February, Cervicalgia M54.2 and Herniated nucleus pulposus M51.9 [place] [id number] [place] [address] [id number] Dec, Syncope, unspecified syncope type R55 [address] [id number] Dec, Cervicalgia M54.2 ; Herniated nucleus pulposus M51.9 and Moderate episode of recurrent major depressive disorder F33.[address] [id number] Dec, [address] [id number] Dec, Herniated nucleus pulposus M51.9 and Cervicalgia M54.2 [place] [id number] [place] [address] [id number] Nov, [address] [id number] Nov, Herniated nucleus pulposus M51.9 and OCD (obsessive compulsive disorder) F42 [place] [id number] [place] [address] [id number] Sep, Displacement of intervertebral disc, site unspecified, without myelopathy 722.2 ; Cervicalgia 723.1 and Hypothyroidism, unspecified type E03.9 [place] [id number] [place] [address] [id number] Sep, [address] [id number] Jun, Displacement of intervertebral disc, site unspecified, without myelopathy 722.2 and Cervicalgia 723.1 [place] [id number] [place] [address] [id number] Mar, Displacement of intervertebral disc, site unspecified, without myelopathy 722.2 and Shingles 053.9 [facility] [id number], [place] [id number] February, Shingles 053.9 [facility] [id number], [place] [id number] February, Displacement of intervertebral disc, site unspecified, without myelopathy 722.2 ; Tension headache 307.81 and Cervicalgia 723.1 [facility] [id number], [place] [id number] February, [facility] [id number] [place] [address] [id number] February, [facility] [id number] [place] [address] [id number] February, [facility] [id number] [place] [address] Jan, [facility] [id number] [place] [address] Jan, [facility] [id number] [place] [address] [id number] Jan, [facility] [id number] [place] [address] Jan, [facility] [id number] [place] [address] Jan, [facility] [id number], [place] [id number] Dec, [facility] [id number] [place] [address] Dec, [facility] [id number], [place] [id number] Dec, [facility] [id number] [place] [phone] Dec, [facility] [id number] [place] [address] [id number] Nov, [facility] [place] [facility] [address] [facility] [id number], [place] [address] Nov, [facility] [address] [facility] [id number][place] [id number] Oct, [facility] [place] [facility] [address] [facility] [id number], [place] [address] Oct, [facility] [address] [id number] [place] [id number] Oct, [facility] [place] [facility] [address] [facility] [id number], [place] [address] Oct, [facility] [address] [id number] [place] [id number] Oct, [facility] [address] [facility] [id number], [place] [id number] Oct, [facility] [place] [facility] [address]00565100[place], [place] [address] Oct, [facility] [place] [facility] [address] [facility] [id number], [place] [address] Oct, [facility] [address] [facility] [id number], [place] [id number] Oct, [facility] [place] [facility] [address] [facility] [id number], [place] [address] Oct, [facility] [address] [facility] [id number], [place] [id number] Oct, [facility] [place] [facility] [address] [facility] [id number], [place] [address] Oct, [facility] [address] [facility] [id number], [place] [id number] Sep, [facility] [place] [facility] [address] [facility] [id number], [place] [address] Sep, [facility] [address] [facility] [id number], [place] [id number] Aug, [facility] [place] [facility] [address] [facility] [id number], [place] [address] Aug, [facility] [place] [facility] [address] [id number] [place] [address] Aug, [facility] [address] [id number] [place] [id number] Aug, [facility] [address] [id number] [place] [id number] Aug, [facility] [place] [facility] [address] [id number] [place] [address] Aug, [facility] [address] [id number] [place] [id number] Jul, [facility] [place] [facility] [address] [id number] [place] [address] Jul, [facility] [address] [id number] [place] [id number] Jul, [facility] [place] [facility] [address] [facility] [id number], [place] [address] Jul, [facility] [place] [facility] [address] [facility] [id number], [place] [address] Apr, [facility] [address] [id number] [place] [id number] Apr, [facility] [place] [facility] [address] [facility] [id number], [place] [address] Apr, [facility] [address] [id number], [place] [id number] Apr, [facility] [place] [facility] [address] [facility] [id number], [place] [address] Apr, [facility] [address] [id number] [place] [id number] Mar, [facility] [place] [facility] [address] [facility] [id number], [place] [address] Mar, [facility] [address] [id number] [place] [id number] Mar, [facility] [place] [facility] [address] [facility] [id number], [place] [address] Mar, [facility] [address] [facility] [id number] [place] [id number] February, [facility] [place] [facility] [address] [facility] [id number] [place] [address] February, [facility] [place] [facility] [address] [facility] [id number] [place] [address] February, [facility] [address] [facility] [id number] [place] [id number] February, [facility] [place] [facility] [address] [id number] [place] [address] February, [facility] [address] [facility] [id number] [place] [id number] February, [facility] [place] [facility] [address] [facility] [id number] [place] [address] February, [facility] [place] [facility] [address] [facility] [id number], [place] [address] Jan, [facility] [place] [facility] [address] [facility] [id number] [place] [address] Jan, [facility] [place] [facility] [address] [facility] [id number], [place] [address] Jan, [facility] [address] [facility] [id number] [place] [id number] Jan, [facility] [place] [facility] [address] [facility] [id number], [place] [address] Jan, [facility] [address] [facility] [id number], [place] [id number] Jan, [facility] [place] [facility] [address] [facility] [id number] [place] [address] Jan, [facility] [address] [facility] [id number] [place] [id number] Jan, [facility] [place] [facility] [address] [facility] [id number], [place] [address] Jan, [facility] [place] [facility] [address] [facility] [id number] [place] [address] Jan, [facility] [place] [facility] [address] [facility] [id number] [place] [address] Jan, [facility] [place] [facility] [address] [facility] [id number] [place] [address] Jan, [facility] [address] [id number] [place] [id number] Jan, [facility] [address] [facility] [id number] [place] [id number] Jan, [facility] [place] [facility] [address] [facility] [id number] [place] [address] Jan, [facility] [address] [facility] [id number] [place] [id number] Jan, [facility] [place] [facility] [address] [id number] [address] Jan, [facility] [address] [facility] [id number] [place] [id number] Jan, [facility] [place] [facility] [address] [facility] [id number], [place] [address] Jan, [facility] [address] [facility] [id number][place] [id number] Dec, [facility] [place] [facility] [address] [facility] [id number], [place] [address] Dec, [facility] [address] [facility] [id number] [id number] Dec, [facility] [place] [facility] [address] [facility] [id number] [place] [address] Dec, [facility] [address] [facility] [id number] [place] [id number] Dec, [facility] [place] [facility] [address] [facility] [id number] [place] [address] Dec, [facility] [address] [facility] [id number] [place] [id number] Dec, [facility] [place] [facility] [address] [facility] [id number] [place] [address] Dec, [facility] [address] [facility] [id number] [place] [id number] Nov, [facility] [place] [facility] [address] [facility] [id number] [place] [address] Nov, [facility] [address] [facility] [id number] [place] [id number] Nov, [facility] [place] [facility] [address] [facility] [id number] [place] [address] Nov, [facility] [place] [facility] [address] [facility] [id number] [place] [address] Nov, [facility] [place] [facility] [address] [facility] [id number] [place] [address] Nov, [facility] [place] [facility] [id number] [place] [address] Nov, [facility] [place] [facility] [id number] [place] [address] Nov, [facility] [address] [id number] [id number] Oct, [facility] [place] [facility] [address] [id number] [address] Oct, [facility] [place] [facility] [address] [id number], [place] [address] Oct, [facility] [address] [facility] [id number][place] [id number] Oct, [facility] [place] [facility] [address] [facility] [id number], [place] [address] Oct, [facility] [address] [facility] [id number] [place] [id number] Oct, [facility] [place] [facility] [address] [facility] [id number], [place] [address] Oct, [facility] [address] [id number] [place] [id number] Aug, [facility] [address] [facility] [id number], [place] [address] Aug, [facility] [address] [id number] [place] [id number] Jul, [facility] [address] [facility] [id number] [place] [address] Mar, [facility] [address] [id number] [place] [id number] Mar, [facility] [address] [facility] [id number] [place] [address] Mar, [facility] [address] [id number] [place] [id number] Jan, [facility] [address] [id number] [place] [id number] Sep, [facility] [id number] [place] [address] Sep, [facility] [address] [id number] [place] [id number] May, [facility] [address] [id number] [place] [id number] Apr, [facility] [address] [id number] [place] [id number] Mar, [facility] [address] [id number] [place] [id number] Mar, [facility] [address] [id number] [place] [id number] February, [facility] [address] [id number] [place] [id number] Jan, [facility] [address] [facility] [id number] [place] [id number] Mar, [facility] [address] [id number] [address] Sep, [facility] [id number] [place] [address], [place] [address] Aug, [facility] [address] [id number] [address] Aug, [facility] [address] [id number] [address] Aug, [facility] [address] [id number] [address] Aug, [facility] [address] [id number], [place] [address] Aug, [facility] [id number], [place] [address] Jul, [facility] [address] [id number], [place] [address] Apr, IMMUNIZATIONS No Known Immunizations SOCIAL HISTORY Never Assessed REASON FOR VISIT [facility] PLAN OF CARE VITAL [...]
--- OUTSIDE RECORDS SUMMARY | 2019-04-19 10:25 | XMS REPORT ---
Author Author Migration, Doctor Organization [facility] Address Unknown Phone Unavailable Care Team Providers Care Rn Acute Care Name Role Phone Migration, Doctor Unavailable Unavailable PROBLEMS Type Condition ICD9-CM Code QMB32-ME Code Onset Dates Condition Status SNOMED Code Problem OCD (obsessive compulsive disorder) F42 Active 816670282 Problem Herniated nucleus pulposus M51.9 Active 59526631 Problem Acquired hypothyroidism E03.9 Active 333366157 Problem Anxiety F41.9 Active 79843878 Problem Cervicalgia M54.2 Active 29575669 Problem Moderate episode of recurrent major depressive disorder F33.1 Active 058409209 Problem Plantar fasciitis M72.2 Active 432216038 Problem Polyneuropathy G62.9 Active 08757919 ALLERGIES No Information ENCOUNTERS Encounter Location Date Diagnosis [place] [id number] [place] [address] [id number] Jan, Polyneuropathy G62.9 [place] [id number] [place] [address] [id number] Dec, Herniated nucleus pulposus M51.9 [place] [id number] [place] [address] [id number] Dec, Long-term use of high-risk medication Z79.899 and Lumbar radiculopathy M54.[address] [place] [address] [id number] Nov, Polyneuropathy G62.9 ; Dermatitis L30.9 and Herniated nucleus pulposus M51.9 [place] [id number] [place] [address] [id number] Nov, [place] [id number] [place] [address] [id number] Oct, Herniated nucleus pulposus M51.9 [address] [place] [address] [id number] Oct, [place] [id number] [place] [address] [id number] Sep, [facility] [id number] [place] [address] [id number] Sep, Herniated nucleus pulposus M51.9 and Acute cystitis with hematuria N30.01 [facility] [id number] [place] [address] [id number] Aug, Herniated nucleus pulposus M51.9 [place] [id number] [place] [address] [id number] Jul, [place] [id number] [place] [address] [id number] Jul, Mass of right upper extremity R22.31 and Foreign body in right foot, initial encounter S90.851A [place] [id number] [place] [address] [id number] Jul, Foreign body in right foot, initial encounter S90.851A [place] [id number] [place] [address] [id number] Jul, Acquired hypothyroidism E03.9 [place] [id number] [place] [address] [id number] Jul, Moderate episode of recurrent major depressive disorder F33.1 ; Herniated nucleus pulposus M51.9 ; Cervicalgia M54.2 ; Polyneuropathy G62.9 and Acquired hypothyroidism E03.9 [place] [id number] [place] [address] [id number] Jun, [place] [id number] [place] [address] [id number] Jun, Herniated nucleus pulposus M51.9 [place] [id number] [id number] May, Herniated nucleus pulposus M51.9 [place] [id number] [place] [address] [id number] Apr, Herniated nucleus pulposus M51.9 [place] [id number] [place] [address] [id number] Apr, [place] [id number] [place] [address] [id number] Apr, Acquired hypothyroidism E03.9 [place] [id number] [place] [address] [id number] Apr, Acquired hypothyroidism E03.9 [place] [id number] [place] [address] [id number] Apr, [place] [id number] [place] [address] [id number] Mar, Herniated nucleus pulposus M51.9 and Nodule, subcutaneous R22.9 [place] [id number] [place] [address] [id number] Mar, Herniated nucleus pulposus M51.9 [place] [id number] [place] [address] [id number] February, Herniated nucleus pulposus M51.9 ; Polyneuropathy G62.9 and Anxiety F41.[address] [id number] Jan, Herniated nucleus pulposus M51.9 ; Moderate episode of recurrent major depressive disorder F33.1 and Acquired hypothyroidism E03.9 [place] [id number] [place] [address] [id number] Dec, Herniated nucleus pulposus M51.9 [place] [id number] [place] [address] [id number] Nov, Cervicalgia M54.2 and Herniated nucleus pulposus M51.9 [place] [id number] [place] [address] [id number] Oct, Herniated nucleus pulposus M51.9 and OCD (obsessive compulsive disorder) F42 [place] [id number] [place] [address] [id number] Oct, Herniated nucleus pulposus M51.9 [place] [id number] [place] [address] [id number] Aug, Acquired hypothyroidism E03.9 [place] [id number] [place] [address] [id number] Aug, Herniated nucleus pulposus M51.9 and Acquired hypothyroidism E03.9 [facility] [address] [id number][place] [address] Aug, [facility] [id number] [place] [address] [id number] Jul, Herniated nucleus pulposus M51.9 ; OCD (obsessive compulsive disorder) F42 and Pain of right upper extremity M79.601 [facility] [id number] [place] [address] [id number] Jul, Anxiety F41.9 [facility] [id number] [place] [address] [id number] Jul, [place] [id number] [place] [address] [id number] Jun, OCD (obsessive compulsive disorder) F42 ; Herniated nucleus pulposus M51.9 and Acute cystitis with hematuria N30.01 [place] [id number] [place] [address] [id number] Jun, Anxiety F41.9 [place] [address] [id number] [place] [address] [id number] Jun, [facility] [id number] [place] [address] [id number] May, Acquired hypothyroidism E03.9 [place] [id number] [place] [address] [id number] May, Polyneuropathy G62.9 ; OCD (obsessive compulsive disorder) F42 ; Herniated nucleus pulposus M51.9 ; Screening for lipid disorders Z13.220 ; Long-term use of high- risk medication Z79.899 and Major depressive disorder, recurrent, moderate F33.1 [facility] [address] [id number][place] [phone] May, Dental examination Z01.20 [place] [id number] [place] [address] [id number] May, Herniated nucleus pulposus M51.9 [address] [place] [address] [id number] May, Herniated nucleus pulposus M51.9 and Anxiety F41.9 [id number] [phone] Apr, Herniated nucleus pulposus M51.9 and Cervicalgia M54.2 [facility] [id number] [place] [address] [id number] Apr, Moderate episode of recurrent major depressive disorder F33.1 [facility] [id number] [place] [address] [id number] Apr, Herniated nucleus pulposus M51.9 [facility] [id number] [place] [address] [id number] Apr, Herniated nucleus pulposus M51.9 [facility] [id number] [place] [address] [id number] Mar, Moderate episode of recurrent major depressive disorder F33.1 [facility] [id number] [place] [address] [id number] Mar, Anxiety F41.9 [place] [address] [id number] [place] [address] [id number] Mar, [facility] [id number] [place] [address] [id number] Mar, Herniated nucleus pulposus M51.9 and Cervicalgia M54.2 [facility] [id number] [place] [address] [id number] February, Acquired hypothyroidism E03.9 [place] [id number] [place] [address] [id number] February, Polyneuropathy G62.9 ; Herniated nucleus pulposus M51.9 ; Cervicalgia M54.2 and Acquired hypothyroidism E03.9 [facility] [address] [id number][place] [id number] Jan, [facility] [id number] [place] [address] [id number] Jan, Cervicalgia M54.2 and Moderate episode of recurrent major depressive disorder F33.1 [facility] [address] [id number][place] [phone] Dec, Cervicalgia M54.2 and Herniated nucleus pulposus M51.9 [facility] [address] [id number], [place] [phone] Nov, Lymph nodes enlarged R59.9 [facility] [id number] [place] [address] [id number] Oct, Cervicalgia M54.2 [facility] [address] [address] Sep, Polyneuropathy G62.9 [facility] [id number] [place] [address] [id number] Sep, Cervicalgia M54.2 and Herniated nucleus pulposus M51.9 [facility] [id number] [place] [address] [id number] Aug, Lumbar radiculopathy M54.16 and Spinal stenosis at L4-L5 level M48.06 [facility] [id number] [place] [address] [id number] Aug, Cervicalgia M54.2 and Herniated nucleus pulposus M51.9 [facility] [id number] [place] [address] [id number] Jul, [facility] [id number] [place] [address] [id number] Jun, Cervicalgia M54.2 and Herniated nucleus pulposus M51.9 [facility] [id number] [place] [address] [id number] May, Plantar fasciitis M72.2 [facility] [id number] [place] [address] [id number] May, [facility] [id number] [place] [address] [id number] Apr, Screening for lipid disorders Z13.220 ; Long-term use of high-risk medication Z79.899 and Major depressive disorder, recurrent, moderate F33.1 [facility] [id number] [place] [address] [id number] Apr, [facility] [id number] [place] [address] [id number] Mar, Herniated nucleus pulposus M51.9 and Cervicalgia M54.2 [place] [id number] [place] [address] [id number] Mar, Cervicalgia M54.2 and Herniated nucleus pulposus M51.9 [facility] [id number] [place] [address] [id number] February, [place] [id number] [place] [address] [id number] February, Cervicalgia M54.2 and Herniated nucleus pulposus M51.9 [place] [address] [id number] [place] [address] [id number] Dec, Syncope, unspecified syncope type R55 [address] [id number] Dec, Cervicalgia M54.2 ; Herniated nucleus pulposus M51.9 and Moderate episode of recurrent major depressive disorder F33.[address] [id number] Dec, [address] [id number] Dec, Herniated nucleus pulposus M51.9 and Cervicalgia M54.2 [place] [id number] [place] [address] [id number] Nov, [address] [id number] Nov, Herniated nucleus pulposus M51.9 and OCD (obsessive compulsive disorder) F42 [place] [id number] [place] [address] [id number] Sep, Displacement of intervertebral disc, site unspecified, without myelopathy 722.2 ; Cervicalgia 723.1 and Hypothyroidism, unspecified type E03.9 [place] [id number] [place] [address] [id number] Sep, [address] [id number] Jun, Displacement of intervertebral disc, site unspecified, without myelopathy 722.2 and Cervicalgia 723.1 [place] [id number] [place] [address] [id number] Mar, Displacement of intervertebral disc, site unspecified, without myelopathy 722.2 and Shingles 053.9 [facility] [id number], [place] [id number] February, Shingles 053.9 [facility] [id number], [place] [id number] February, Displacement of intervertebral disc, site unspecified, without myelopathy 722.2 ; Tension headache 307.81 and Cervicalgia 723.1 [facility] [id number], [place] [id number] February, [facility] [id number] [place] [address] [id number] February, [facility] [id number] [place] [address] [id number] February, [facility] [id number] [place] [phone] Jan, [facility] [id number] [place] [phone] Jan, [facility] [id number] [place] [address] [id number] Jan, [facility] [id number] [place] [phone] Jan, [facility] [id number] [place] [phone] Jan, [facility] [id number], [place] [phone] Dec, [facility] [id number] [place] [phone] Dec, [facility] [id number], [place] [id number] Dec, [facility] [id number] [place] [id number] Dec, [facility] [id number] [place] [address] [id number] Nov, [facility] [place] [facility] [address] [facility] [id number], [place] [address] Nov, [facility] [address] [facility] [id number][place] [phone] Oct, [facility] [place] [facility] [address] [facility] [id number], [place] [address] Oct, [facility] [address] [id number] [place] [phone] Oct, [facility] [place] [facility] [address] [facility] [id number], [place] [address] Oct, [facility] [address] [id number] [place] [id number] Oct, [facility] [address] [facility] [id number], [place] [id number] Oct, [facility] [place] [facility] [address]00565100[place], [place] [address] Oct, [facility] [place] [facility] [address] [facility] [id number], [place] [address] Oct, [facility] [address] [facility] [id number], [place] [id number] Oct, [facility] [place] [facility] [address] [facility] [id number], [place] [address] Oct, [facility] [address] [facility] [id number], [place] [id number] Oct, [facility] [place] [facility] [address] [facility] [id number], [place] [address] Oct, [facility] [address] [facility] [id number], [place] [phone] Sep, [facility] [place] [facility] [address] [facility] [id number], [place] [address] Sep, [facility] [address] [facility] [id number], [place] [id number] Aug, [facility] [place] [facility] [address] [facility] [id number], [place] [address] Aug, [facility] [place] [facility] [address] [id number] [place] [address] Aug, [facility] [address] [id number] [place] [id number] Aug, [facility] [address] [id number] [place] [id number] Aug, [facility] [place] [facility] [address] [id number] [place] [address] Aug, [facility] [address] [id number] [place] [id number] Jul, [facility] [place] [facility] [address] [id number] [place] [address] Jul, [facility] [address] [id number] [place] [id number] Jul, [facility] [place] [facility] [address] [facility] [id number], [place] [address] Jul, [facility] [place] [facility] [address] [facility] [id number], [place] [address] Apr, [facility] [address] [id number] [place] [id number] Apr, [facility] [place] [facility] [address] [facility] [id number], [place] [address] Apr, [facility] [address] [id number], [place] [id number] Apr, [facility] [place] [facility] [address] [facility] [id number][place] [address] Apr, [facility] [address] [id number] [place] [id number] Mar, [facility] [place] [facility] [address] [facility] [id number], [place] [address] Mar, [facility] [address] [id number] [place] [id number] Mar, [facility] [place] [facility] [address] [facility] [id number][place] [address] Mar, [facility] [address] [facility] [id number] [place] [id number] February, [facility] [place] [facility] [address] [facility] [id number] [place] [address] February, [facility] [place] [facility] [address] [facility] [id number] [place] [address] February, [facility] [address] [facility] [id number] [place] [id number] February, [facility] [place] [facility] [address] [id number] [place] [address] February, [facility] [address] [facility] [id number] [place] [id number] February, [facility] [place] [facility] [address] [facility] [id number] [place] [address] February, [facility] [place] [facility] [address] [facility] [id number], [place] [address] Jan, [facility] [place] [facility] [address] [facility] [id number] [place] [address] Jan, [facility] [place] [facility] [address] [facility] [id number], [place] [address] Jan, [facility] [address] [facility] [id number] [place] [id number] Jan, [facility] [place] [facility] [address] [facility] [id number], [place] [address] Jan, [facility] [address] [facility] [id number], [place] [id number] Jan, [facility] [place] [facility] [address] [facility] [id number] [place] [address] Jan, [facility] [address] [facility] [id number] [place] [id number] Jan, [facility] [place] [facility] [address] [facility] [id number], [place] [address] Jan, [facility] [place] [facility] [address] [facility] [id number] [place] [address] Jan, [facility] [place] [facility] [address] [facility] [id number] [place] [address] Jan, [facility] [place] [facility] [address] [facility] [id number] [place] [address] Jan, [facility] [address] [id number] [place] [id number] Jan, [facility] [address] [facility] [id number] [place] [id number] Jan, [facility] [place] [facility] [address] [facility] [id number] [place] [address] Jan, [facility] [address] [facility] [id number] [place] [id number] Jan, [facility] [place] [facility] [address] [id number], [place] [address] Jan, [facility] [address] [facility] [id number] [place] [id number] Jan, [facility] [place] [facility] [address] [facility] [id number], [place] [address] Jan, [facility] [address] [facility] [id number], [place] [id number] Dec, [facility] [place] [facility] [address] [facility] [id number], [place] [address] Dec, [facility] [address] [facility] [id number][place] [id number] Dec, [facility] [place] [facility] [address] [facility] [id number] [place] [address] Dec, [facility] [address] [facility] [id number] [place] [id number] Dec, [facility] [place] [facility] [address] [facility] [id number] [place] [address] Dec, [facility] [address] [facility] [id number] [place] [id number] Dec, [facility] [place] [facility] [address] [facility] [id number] [place] [address] Dec, [facility] [address] [facility] [id number] [place] [id number] Nov, [facility] [place] [facility] [address] [facility] [id number] [place] [address] Nov, [facility] [address] [facility] [id number] [place] [id number] Nov, [facility] [place] [facility] [address] [facility] [id number] [place] [address] Nov, [facility] [place] [facility] [address] [facility] [id number] [place] [address] Nov, [facility] [place] [facility] [address] [facility] [id number] [place] [address] Nov, [facility] [place] [facility] [id number] [place] [address] Nov, [facility] [place] [facility] [address] [id number] [place] [address] Nov, [facility] [address] [id number] [id number] Oct, [facility] [place] [facility] [address] [id number] [address] Oct, [facility] [place] [facility] [address] [id number] [address] Oct, [facility] [address] [facility] [id number] [id number] Oct, [facility] [place] [facility] [address] [facility] [id number], [place] [address] Oct, [facility] [address] [facility] [id number] [place] [id number] Oct, [facility] [place] [facility] [address] [facility] [id number], [place] [address] Oct, [facility] [address] [id number] [place] [id number] Aug, [facility] [address] [facility] [id number], [place] [address] Aug, [facility] [address] [id number] [place] [id number] Jul, [facility] [address] [facility] [id number] [place] [id number] Mar, [facility] [address] [id number] [place] [id number] Mar, [facility] [address] [facility] [id number] [place] [address] Mar, [facility] [address] [id number] [place] [id number] Jan, [facility] [address] [id number] [place] [id number] Sep, [facility] [id number] [place] [address] Sep, [facility] [address] [id number] [place] [id number] May, [facility] [address] [id number] [place] [id number] Apr, [facility] [address] [id number] [place] [id number] Mar, [facility] [address] [id number] [place] [id number] Mar, [facility] [address] [id number] [place] [id number] February, [facility] [address] [id number] [place] [id number] Jan, [facility] [place] [facility] [address] [facility] [id number] [place] [id number] Mar, [facility] [place] [facility] [address] [id number] [address] Sep, [facility] [id number] [place] [address], [place] [address] Aug, [facility] [address] [id number], [place] [address] Aug, [facility] [address] [id number], [place] [address] Aug, [facility] [id number] [address] Aug, [facility] [id number] [address] Aug, [facility] [id number] [address] Jul, [facility] [address] [id number], [place] [address] Apr, IMMUNIZATIONS No Known Immunizations SOCIAL HISTORY Never Assessed REASON FOR VISIT [facility] [place] PLAN OF CARE VITAL SIGNS MEDICATIONS Unknown [...]
--- OUTSIDE RECORDS SUMMARY | 2019-04-19 10:25 | XMS REPORT ---
Author Author Migration, Doctor Organization [facility] Address Unknown Phone Unavailable Care Team Providers Care Possum Trapper Name Role Phone Migration, Doctor Unavailable Unavailable PROBLEMS Type Condition ICD9-CM Code DIH12-TN Code Onset Dates Condition Status SNOMED Code Problem OCD (obsessive compulsive disorder) F42 Active 492557437 Problem Herniated nucleus pulposus M51.9 Active 62385403 Problem Acquired hypothyroidism E03.9 Active 901513438 Problem Anxiety F41.9 Active 21457134 Problem Cervicalgia M54.2 Active 82760194 Problem Moderate episode of recurrent major depressive disorder F33.1 Active 473355613 Problem Plantar fasciitis M72.2 Active 093803545 Problem Polyneuropathy G62.9 Active 29221068 ALLERGIES No Information ENCOUNTERS Encounter Location Date Diagnosis [place] [id number] [place] [address] [id number] Jan, Polyneuropathy G62.9 [place] [id number] [place] [address] [id number] Dec, Herniated nucleus pulposus M51.9 [place] [id number] [place] [address] [id number] Dec, Long-term use of high-risk medication Z79.899 and Lumbar radiculopathy M54.[id number] [place] [address] [id number] Nov, Polyneuropathy G62.9 ; Dermatitis L30.9 and Herniated nucleus pulposus M51.9 [place] [id number] [place] [address] [id number] Nov, [place] [id number] [place] [address] [id number] Oct, Herniated nucleus pulposus M51.9 [id number] [place] [address] [id number] Oct, [place] [id number] [place] [address] [id number] Sep, [facility] [id number] [place] [address] [id number] Sep, Herniated nucleus pulposus M51.9 and Acute cystitis with hematuria N30.01 [facility] [id number] [place] [address] [id number] Aug, Herniated nucleus pulposus M51.9 [place] [id number] [place] [address] [id number] Jul, [place] [id number] [place] [address] [id number] Jul, Mass of right upper extremity R22.31 and Foreign body in right foot, initial encounter S90.851A [place] [id number] [place] [address] [id number] Jul, Foreign body in right foot, initial encounter S90.851A [place] [id number] [place] [address] [id number] Jul, Acquired hypothyroidism E03.9 [place] [id number] [place] [address] [id number] Jul, Moderate episode of recurrent major depressive disorder F33.1 ; Herniated nucleus pulposus M51.9 ; Cervicalgia M54.2 ; Polyneuropathy G62.9 and Acquired hypothyroidism E03.9 [place] [id number] [place] [address] [id number] Jun, [place] [id number] [place] [address] [id number] Jun, Herniated nucleus pulposus M51.9 [place] [id number][place] [id number] May, Herniated nucleus pulposus M51.9 [place] [id number] [place] [address] [id number] Apr, Herniated nucleus pulposus M51.9 [place] [id number] [place] [address] [id number] Apr, [place] [id number] [place] [address] [id number] Apr, Acquired hypothyroidism E03.9 [place] [id number] [place] [address] [id number] Apr, Acquired hypothyroidism E03.9 [place] [id number] [place] [address] [id number] Apr, [place] [id number] [place] [address] [id number] Mar, Herniated nucleus pulposus M51.9 and Nodule, subcutaneous R22.9 [place] [id number] [place] [address] [id number] Mar, Herniated nucleus pulposus M51.9 [place] [id number] [place] [address] [id number] February, Herniated nucleus pulposus M51.9 ; Polyneuropathy G62.9 and Anxiety F41.[address] [id number] Jan, Herniated nucleus pulposus M51.9 ; Moderate episode of recurrent major depressive disorder F33.1 and Acquired hypothyroidism E03.9 [place] [id number] [place] [address] [id number] Dec, Herniated nucleus pulposus M51.9 [place] [id number] [place] [address] [id number] Nov, Cervicalgia M54.2 and Herniated nucleus pulposus M51.9 [place] [id number] [place] [address] [id number] Oct, Herniated nucleus pulposus M51.9 and OCD (obsessive compulsive disorder) F42 [place] [id number] [place] [address] [id number] Oct, Herniated nucleus pulposus M51.9 [place] [id number] [place] [address] [id number] Aug, Acquired hypothyroidism E03.9 [place] [id number] [place] [address] [id number] Aug, Herniated nucleus pulposus M51.9 and Acquired hypothyroidism E03.9 [facility] [address] [id number], [place] [address] Aug, [facility] [id number] [place] [address] [id number] Jul, Herniated nucleus pulposus M51.9 ; OCD (obsessive compulsive disorder) F42 and Pain of right upper extremity M79.601 [facility] [id number] [place] [address] [id number] Jul, Anxiety F41.9 [facility] [id number] [place] [address] [id number] Jul, [place] [id number] [place] [address] [id number] Jun, OCD (obsessive compulsive disorder) F42 ; Herniated nucleus pulposus M51.9 and Acute cystitis with hematuria N30.01 [place] [id number] [place] [address] [id number] Jun, Anxiety F41.9 [place] [id number] [place] [address] [id number] Jun, [facility] [id number] [place] [address] [id number] May, Acquired hypothyroidism E03.9 [place] [id number] [place] [address] [id number] May, Polyneuropathy G62.9 ; OCD (obsessive compulsive disorder) F42 ; Herniated nucleus pulposus M51.9 ; Screening for lipid disorders Z13.220 ; Long-term use of high- risk medication Z79.899 and Major depressive disorder, recurrent, moderate F33.1 [facility] [address] [id number][place] [id number] May, Dental examination Z01.20 [place] [id number] [place] [address] [id number] May, Herniated nucleus pulposus M51.9 [address] [place] [address] [id number] May, Herniated nucleus pulposus M51.9 and Anxiety F41.9 [place] [id number] [id number] Apr, Herniated nucleus pulposus M51.9 and Cervicalgia M54.2 [facility] [address] [id number] [place] [address] [id number] Apr, Moderate episode of recurrent major depressive disorder F33.1 [facility] [id number] [place] [address] [id number] Apr, Herniated nucleus pulposus M51.9 [facility] [id number] [place] [address] [id number] Apr, Herniated nucleus pulposus M51.9 [facility] [id number] [place] [address] [id number] Mar, Moderate episode of recurrent major depressive disorder F33.1 [facility] [id number] [place] [address] [id number] Mar, Anxiety F41.9 [place] [id number] [place] [address] [id number] Mar, [facility] [address] [id number] [place] [address] [id number] Mar, Herniated nucleus pulposus M51.9 and Cervicalgia M54.2 [facility] [id number] [place] [address] [id number] February, Acquired hypothyroidism E03.9 [place] [id number] [place] [address] [id number] February, Polyneuropathy G62.9 ; Herniated nucleus pulposus M51.9 ; Cervicalgia M54.2 and Acquired hypothyroidism E03.9 [facility] [address] [id number][place] [id number] Jan, [facility] [address] [id number] [place] [address] [id number] Jan, Cervicalgia M54.2 and Moderate episode of recurrent major depressive disorder F33.1 [facility] [address] [id number][place] [id number] Dec, Cervicalgia M54.2 and Herniated nucleus pulposus M51.9 [facility] [address] [id number][place] [id number] Nov, Lymph nodes enlarged R59.9 [facility] [id number] [place] [address] [id number] Oct, Cervicalgia M54.2 [facility] [address] [address] Sep, Polyneuropathy G62.9 [facility] [id number] [place] [address] [id number] Sep, Cervicalgia M54.2 and Herniated nucleus pulposus M51.9 [facility] [id number] [place] [address] [id number] Aug, Lumbar radiculopathy M54.16 and Spinal stenosis at L4-L5 level M48.06 [facility] [address] [id number] [place] [address] [id number] Aug, Cervicalgia M54.2 and Herniated nucleus pulposus M51.9 [facility] [id number] [place] [address] [id number] Jul, [facility] [id number] [place] [address] [id number] Jun, Cervicalgia M54.2 and Herniated nucleus pulposus M51.9 [facility] [id number] [place] [address] [id number] May, Plantar fasciitis M72.2 [facility] [id number] [place] [address] [id number] May, [facility] [id number] [place] [address] [id number] Apr, Screening for lipid disorders Z13.220 ; Long-term use of high-risk medication Z79.899 and Major depressive disorder, recurrent, moderate F33.1 [facility] [id number] [place] [address] [id number] Apr, [facility] [id number] [place] [address] [id number] Mar, Herniated nucleus pulposus M51.9 and Cervicalgia M54.2 [place] [id number] [place] [address] [id number] Mar, Cervicalgia M54.2 and Herniated nucleus pulposus M51.9 [facility] [id number] [place] [address] [id number] February, [place] [id number] [place] [address] [id number] February, Cervicalgia M54.2 and Herniated nucleus pulposus M51.9 [place] [id number] [place] [address] [id number] Dec, Syncope, unspecified syncope type R55 [address] [id number] Dec, Cervicalgia M54.2 ; Herniated nucleus pulposus M51.9 and Moderate episode of recurrent major depressive disorder F33.[address] [id number] Dec, [address] [id number] Dec, Herniated nucleus pulposus M51.9 and Cervicalgia M54.2 [place] [id number] [place] [address] [id number] Nov, [address] [id number] Nov, Herniated nucleus pulposus M51.9 and OCD (obsessive compulsive disorder) F42 [place] [id number] [place] [address] [id number] Sep, Displacement of intervertebral disc, site unspecified, without myelopathy 722.2 ; Cervicalgia 723.1 and Hypothyroidism, unspecified type E03.9 [place] [id number] [place] [address] [id number] Sep, [address] [id number] Jun, Displacement of intervertebral disc, site unspecified, without myelopathy 722.2 and Cervicalgia 723.1 [place] [id number] [place] [address] [id number] Mar, Displacement of intervertebral disc, site unspecified, without myelopathy 722.2 and Shingles 053.9 [facility] [id number], [place] [id number] February, Shingles 053.9 [facility] [id number], [place] [id number] February, Displacement of intervertebral disc, site unspecified, without myelopathy 722.2 ; Tension headache 307.81 and Cervicalgia 723.1 [facility] [id number], [place] [id number] February, [facility] [id number] [place] [address] [id number] February, [facility] [id number] [place] [address] [id number] February, [facility] [id number] [place] [address] Jan, [facility] [place] [id number] [place] [address] Jan, [facility] [id number] [place] [address] [id number] Jan, [facility] [id number] [place] [address] Jan, [facility] [id number] [place] [address] Jan, [facility] [id number], [place] [id number] Dec, [facility] [id number] [place] [address] Dec, [facility] [id number], [place] [id number] Dec, [facility] [place] [id number] [place] [address] Dec, [facility] [id number] [place] [address] [id number] Nov, [facility] [place] [facility] [address] [facility] [id number], [place] [address] Nov, [facility] [address] [facility] [id number], [place] [phone] Oct, [facility] [place] [facility] [address] [facility] [id number], [place] [address] Oct, [facility] [address] [id number] [place] [id number] Oct, [facility] [place] [facility] [address] [facility] [id number], [place] [address] Oct, [facility] [address] [id number] [place] [id number] Oct, [facility] [address] [facility] [id number], [place] [id number] Oct, [facility] [place] [facility] [address]00565100[place], [place] [address] Oct, [facility] [place] [facility] [address] [facility] [id number], [place] [address] Oct, [facility] [address] [facility] [id number], [place] [id number] Oct, [facility] [place] [facility] [address] [facility] [id number], [place] [address] Oct, [facility] [address] [facility] [id number], [place] [id number] Oct, [facility] [place] [facility] [address] [facility] [id number], [place] [address] Oct, [facility] [address] [facility] [id number], [place] [id number] Sep, [facility] [place] [facility] [address] [facility] [id number], [place] [address] Sep, [facility] [address] [facility] [id number], [place] [id number] Aug, [facility] [place] [facility] [address] [facility] [id number], [place] [address] Aug, [facility] [place] [facility] [address] [id number] [place] [address] Aug, [facility] [address] [id number] [place] [id number] Aug, [facility] [address] [id number] [place] [id number] Aug, [facility] [place] [facility] [address] [id number] [place] [address] Aug, [facility] [address] [id number] [place] [id number] Jul, [facility] [place] [facility] [address] [id number] [place] [address] Jul, [facility] [address] [id number] [place] [id number] Jul, [facility] [place] [facility] [address] [facility] [id number], [place] [address] Jul, [facility] [place] [facility] [address] [facility] [id number], [place] [address] Apr, [facility] [address] [id number] [place] [id number] Apr, [facility] [place] [facility] [address] [facility] [id number], [place] [address] Apr, [facility] [address] [id number], [place] [id number] Apr, [facility] [place] [facility] [address] [facility] [id number], [place] [address] Apr, [facility] [address] [id number] [place] [id number] Mar, [facility] [place] [facility] [address] [facility] [id number], [place] [address] Mar, [facility] [address] [id number] [place] [id number] Mar, [facility] [place] [facility] [address] [facility] [id number], [place] [address] Mar, [facility] [address] [facility] [id number] [place] [id number] February, [facility] [place] [facility] [address] [facility] [id number] [place] [address] February, [facility] [place] [facility] [address] [facility] [id number] [place] [address] February, [facility] [address] [facility] [id number] [place] [id number] February, [facility] [place] [facility] [address] [id number] [place] [address] February, [facility] [address] [facility] [id number] [place] [id number] February, [facility] [place] [facility] [address] [facility] [id number] [place] [address] February, [facility] [place] [facility] [address] [facility] [id number], [place] [address] Jan, [facility] [place] [facility] [address] [facility] [id number] [place] [address] Jan, [facility] [place] [facility] [address] [facility] [id number], [place] [address] Jan, [facility] [address] [facility] [id number] [place] [id number] Jan, [facility] [place] [facility] [address] [facility] [id number], [place] [address] Jan, [facility] [address] [facility] [id number], [place] [id number] Jan, [facility] [place] [facility] [address] [facility] [id number] [place] [address] Jan, [facility] [address] [facility] [id number] [place] [id number] Jan, [facility] [place] [facility] [address] [facility] [id number], [place] [address] Jan, [facility] [place] [facility] [address] [facility] [id number] [place] [address] Jan, [facility] [place] [facility] [address] [facility] [id number] [place] [address] Jan, [facility] [place] [facility] [address] [facility] [id number] [place] [address] Jan, [facility] [address] [id number] [place] [id number] Jan, [facility] [address] [facility] [id number] [place] [id number] Jan, [facility] [place] [facility] [address] [facility] [id number] [place] [address] Jan, [facility] [address] [facility] [id number] [place] [id number] Jan, [facility] [place] [facility] [address] [id number], [place] [address] Jan, [facility] [address] [facility] [id number] [place] [id number] Jan, [facility] [place] [facility] [address] [facility] [id number], [place] [address] Jan, [facility] [address] [facility] [id number], [place] [id number] Dec, [facility] [place] [facility] [address] [facility] [id number], [place] [address] Dec, [facility] [address] [facility] [id number], [place] [id number] Dec, [facility] [place] [facility] [address] [facility] [id number] [place] [address] Dec, [facility] [address] [facility] [id number] [place] [id number] Dec, [facility] [place] [facility] [address] [facility] [id number] [place] [address] Dec, [facility] [address] [facility] [id number] [place] [id number] Dec, [facility] [place] [facility] [address] [facility] [id number] [place] [address] Dec, [facility] [address] [facility] [id number] [place] [id number] Nov, [facility] [place] [facility] [address] [facility] [id number] [place] [address] Nov, [facility] [address] [facility] [id number] [place] [id number] Nov, [facility] [place] [facility] [address] [facility] [id number] [place] [address] Nov, [facility] [place] [facility] [address] [facility] [id number] [place] [address] Nov, [facility] [place] [facility] [address] [facility] [id number] [place] [address] Nov, [facility] [place] [facility] [id number] [place] [address] Nov, [facility] [place] [facility] [address] [id number] [place] [address] Nov, [facility] [address] [id number] [id number] Oct, [facility] [place] [facility] [address] [id number] [address] Oct, [facility] [place] [facility] [address] [id number], [place] [address] Oct, [facility] [address] [facility] [id number][place] [id number] Oct, [facility] [place] [facility] [address] [facility] [id number], [place] [address] Oct, [facility] [address] [facility] [id number] [place] [id number] Oct, [facility] [place] [facility] [address] [facility] [id number], [place] [address] Oct, [facility] [address] [id number] [place] [id number] Aug, [facility] [address] [facility] [id number], [place] [address] Aug, [facility] [address] [id number] [place] [id number] Jul, [facility] [address] [facility] [id number] [place] [address] Mar, [facility] [address] [id number] [place] [id number] Mar, [facility] [address] [facility] [id number] [place] [address] Mar, [facility] [address] [id number] [place] [id number] Jan, [facility] [address] [id number] [place] [id number] Sep, [facility] [id number] [place] [address] Sep, [facility] [address] [id number] [place] [id number] May, [facility] [address] [id number] [place] [id number] Apr, [facility] [address] [id number] [place] [id number] Mar, [facility] [address] [id number] [place] [id number] Mar, [facility] [address] [id number] [place] [id number] February, [facility] [address] [id number] [place] [id number] Jan, [facility] [place] [facility] [address] [facility] [id number] [place] [address] Mar, [facility] [place] [facility] [address] [id number], [place] [address] Sep, [facility] [place] [facility] [id number] [place] [address], [place] [address] Aug, [facility] [address] [id number], [place] [address] Aug, [facility] [facility] [address] [id number] [address] Aug, [facility] [address] [id number], [place] [address] Aug, [facility] [address] [id number], [place] [address] Aug, [facility] [address]00565[address], [place] [address] Jul, [facility] [address] [id number], [place] [address] Apr, IMMUNIZATIONS No Known Immunizations SOCIAL HISTORY Never Assessed REASON FOR VISIT [facility] [place] CARE VITAL SIGNS MEDICATIONS Unknown [...]
--- OUTSIDE RECORDS SUMMARY | 2019-04-19 10:26 | XMS REPORT ---
Author Author HILDA WOLF [facility] Address [address] [place] [address] Care Team Providers Care Education And Development Manager Name Role Phone HILDA WOLF Unavailable PROBLEMS Type Condition ICD9-CM Code WZO74-NE Code Onset Dates Condition Status SNOMED Code Problem Herniated nucleus pulposus M51.9 Active 22517844 Problem OCD (obsessive compulsive disorder) F42 Active 052450370 Problem Anxiety F41.9 Active 96042159 Problem Acquired hypothyroidism E03.9 Active 279671565 Problem Moderate episode of recurrent major depressive disorder F33.1 Active 805137230 Problem Cervicalgia M54.2 Active 66175521 Problem Polyneuropathy G62.9 Active 95430686 Problem Plantar fasciitis M72.2 Active [id number] ALLERGIES No Information ENCOUNTERS Encounter Location Date Diagnosis [id number] [place] [id number] Aug, [address] [id number] Aug, Herniated nucleus pulposus M51.9 [id number] [place] [address] [id number] Jul, [address] [id number] Jul, Mass of right upper extremity R22.31 and Foreign body in right foot, initial encounter S90.851A [id number] [place] [address] [id number] Jul, Foreign body in right foot, initial encounter S90.851A [id number] [place] [address] [id number] Jul, Acquired hypothyroidism E03.[address] [id number] Jul, Moderate episode of recurrent major depressive disorder F33.1 ; Herniated nucleus pulposus M51.9 ; Cervicalgia M54.2 ; Polyneuropathy G62.9 and Acquired hypothyroidism E03.9 [facility] [address] [id number] Jun, [facility] [address] [id number] Jun, Herniated nucleus pulposus M51.9 [address] [id number] May, Herniated nucleus pulposus M51.9 [address] [id number] Apr, Herniated nucleus pulposus M51.9 [address] [id number] Apr, [address] [id number] Apr, Acquired hypothyroidism E03.9 [address] [id number] Apr, Acquired hypothyroidism E03.9 [address] [id number] Apr, [address] [id number] Mar, Herniated nucleus pulposus M51.9 and Nodule, subcutaneous R22.[address] [id number] Mar, Herniated nucleus pulposus M51.9 [address] [id number] February, Herniated nucleus pulposus M51.9 ; Polyneuropathy G62.9 and Anxiety F41.[address] [id number] Jan, Herniated nucleus pulposus M51.9 ; Moderate episode of recurrent major depressive disorder F33.1 and Acquired hypothyroidism E03.9 [address] [id number] Dec, Herniated nucleus pulposus M51.9 [facility] [id number] [id number] Nov, Cervicalgia M54.2 and Herniated nucleus pulposus M51.9 [facility] [id number] [place] [address] [id number] Oct, Herniated nucleus pulposus M51.9 and OCD (obsessive compulsive disorder) F42 [facility] [id number] [place] [address] [id number] Oct, Herniated nucleus pulposus M51.9 [id number] [place] [address] [id number] Aug, Acquired hypothyroidism E03.9 [id number] [place] [address] [id number] Aug, Herniated nucleus pulposus M51.9 and Acquired hypothyroidism E03.9 [facility] [id number] [place] [address] Aug, [facility] [id number] [place] [address] [id number] Jul, Herniated nucleus pulposus M51.9 ; OCD (obsessive compulsive disorder) F42 and Pain of right upper extremity M79.601 [id number] [place] [address] [id number] Jul, Anxiety F41.9 [address] [place] [address] [id number] Jul, [id number] [place] [address] [id number] Jun, OCD (obsessive compulsive disorder) F42 ; Herniated nucleus pulposus M51.9 and Acute cystitis with hematuria N30.01 [id number] [place] [address] [id number] Jun, Anxiety F41.9 [facility] [address] [place] [address] [id number] Jun, [id number] [place] [address] [id number] May, Acquired hypothyroidism E03.9 [facility] [address] [id number][place] [id number] May, Polyneuropathy G62.9 ; OCD (obsessive compulsive disorder) F42 ; Herniated nucleus pulposus M51.9 ; Screening for lipid disorders Z13.220 ; Long-term use of high- risk medication Z79.899 and Major depressive disorder, recurrent, moderate F33.1 [facility] [address] [id number] [id number] May, Dental examination Z01.20 [facility] [id number] [place] [address] [id number] May, Herniated nucleus pulposus M51.9 [facility] [address] [id number] [place] [address] [id number] May, Herniated nucleus pulposus M51.9 and Anxiety F41.9 [facility] [id number] [place] [address] [id number] Apr, Herniated nucleus pulposus M51.9 and Cervicalgia M54.2 [facility] [address] [id number] [place] [address] [id number] Apr, Moderate episode of recurrent major depressive disorder F33.1 [facility] [address] [id number] [place] [address] [id number] Apr, Herniated nucleus pulposus M51.9 [facility] [address] [id number] [place] [address] [id number] Apr, Herniated nucleus pulposus M51.9 [facility] [address] [id number] [place] [address] [id number] Mar, Moderate episode of recurrent major depressive disorder F33.1 [facility] [address] [id number] [place] [address] [id number] Mar, Anxiety F41.9 [facility] [address] [id number] [place] [address] [id number] Mar, [facility] [address] [id number] [place] [address] [id number] Mar, Herniated nucleus pulposus M51.9 and Cervicalgia M54.2 [facility] [id number] [place] [address] [id number] February, Acquired hypothyroidism E03.9 [id number] [place] [address] [id number] February, Polyneuropathy G62.9 ; Herniated nucleus pulposus M51.9 ; Cervicalgia M54.2 and Acquired hypothyroidism E03.9 [id number] [place] [address] [id number] Jan, [id number] [place] [address] [id number] Jan, Cervicalgia M54.2 and Moderate episode of recurrent major depressive disorder F33.1 [id number] [place] [address] [id number] Dec, Cervicalgia M54.2 and Herniated nucleus pulposus M51.9 [id number] [place] [address] [id number] Nov, Lymph nodes enlarged R59.9 [address] [place] [address] [id number] Oct, Cervicalgia M54.2 [facility] [id number] [place] [address] Sep, Polyneuropathy G62.9 [address] [place] [address] [id number] Sep, Cervicalgia M54.2 and Herniated nucleus pulposus M51.9 [address] [place] [address] [id number] Aug, Lumbar radiculopathy M54.16 and Spinal stenosis at L4-L5 level M48.06 [id number] [place] [address] [id number] Aug, Cervicalgia M54.2 and Herniated nucleus pulposus M51.9 [address] [place] [address] [id number] Jul, [id number] [place] [address] [id number] Jun, Cervicalgia M54.2 and Herniated nucleus pulposus M51.9 [facility] [id number] [place] [address] [id number] May, Plantar fasciitis M72.2 [facility] [id number] [place] [address] [id number] May, [facility] [id number] [place] [address] [id number] Apr, Screening for lipid disorders Z13.220 ; Long-term use of high-risk medication Z79.899 and Major depressive disorder, recurrent, moderate F33.1 [facility] [id number] [place] [address] [id number] Apr, [id number] [place] [address] [id number] Mar, Herniated nucleus pulposus M51.9 and Cervicalgia M54.2 [id number] [place] [address] [id number] Mar, Cervicalgia M54.2 and Herniated nucleus pulposus M51.9 [facility] [id number] [place] [address] [id number] February, [id number] [place] [address] [id number] February, Cervicalgia M54.2 and Herniated nucleus pulposus M51.9 [id number] [place] [address] [id number] Dec, Syncope, unspecified syncope type R55 [facility] [id number] [place] [address] [id number] Dec, Cervicalgia M54.2 ; Herniated nucleus pulposus M51.9 and Moderate episode of recurrent major depressive disorder F33.1 [id number] [place] [address] [id number] Dec, [facility] [id number] [place] [address] [id number] Dec, Herniated nucleus pulposus M51.9 and Cervicalgia M54.2 [id number] [place] [address] [id number] Nov, [facility] [id number][place] [id number] Nov, Herniated nucleus pulposus M51.9 and OCD (obsessive compulsive disorder) F42 [facility] [id number], [place] [id number] Sep, Displacement of intervertebral disc, site unspecified, without myelopathy 722.2 ; Cervicalgia 723.1 and Hypothyroidism, unspecified type E03.9 [facility] [id number] [place] [address] [id number] Sep, [id number] [place] [address] [id number] Jun, Displacement of intervertebral disc, site unspecified, without myelopathy 722.2 and Cervicalgia 723.1 [facility] [id number] [place] [address] [id number] Mar, Displacement of intervertebral disc, site unspecified, without myelopathy 722.2 and Shingles 053.9 [facility] [id number] [place] [address] [id number] February, Shingles 053.9 [id number] [place] [address] [id number] February, Displacement of intervertebral disc, site unspecified, without myelopathy 722.2 ; Tension headache 307.81 and Cervicalgia 723.1 [facility] [id number], [place] [id number] February, [facility] [id number] [place] [address] [id number] February, [facility] [id number] [place] [address] [id number] February, [facility] [address] [id number] [address] Jan, [facility] [address]00565100[place] [address] Jan, [facility] [id number] [place] [address] [id number] Jan, [facility] [place] [facility] [address] [id number] [place] [address] Jan, [facility] [place] [facility] [address] [facility] [id number] [address] Jan, [facility] [address] [id number], [place] [id number] Dec, [facility] [place] [facility] [address] [facility] [id number] [place] [address] Dec, [facility] [address] [id number][place] [id number] Dec, [facility] [place] [facility] [address] [facility] [id number] [address] Dec, [facility] [address] [id number], [place] [id number] Nov, [facility] [place] [facility] [address] [facility] [id number] [place] [address] Nov, [facility] [address] [id number], [place] [id number] Oct, [facility] [place] [facility] [address] [facility] [id number] [place] [address] Oct, [facility] [address] [id number], [place] [id number] Oct, [facility] [place] [facility] [address] [facility] [id number] [address] Oct, [facility] [address] [id number], [place] [id number] Oct, [facility] [address] [id number], [place] [id number] Oct, [facility] [place] [facility] [address] [facility] [id number] [place] [address] Oct, [facility] [place] [facility] [address] [facility] [id number] [place] [address] Oct, [facility] [address] [id number], [place] [id number] Oct, [facility] [place] [facility] [address] [id number] [place] [address] Oct, [facility] [address] [id number], [place] [id number] Oct, [facility] [place] [facility] [address] [facility] [id number] [place] [address] Oct, [facility] [address] [id number], [place] [id number] Sep, [facility] [place] [facility] [address] [id number] [place] [address] Sep, [facility] [address] [id number], [place] [id number] Aug, [facility] [place] [facility] [address] [facility] [id number] [place] [address] Aug, [facility] [place] [facility] [address] [facility] [id number] [place] [address] Aug, [facility] [address] [id number], [place] [id number] Aug, [facility] [address] [facility] [id number], [place] [id number] Aug, [facility] [place] [facility] [address] [facility] [id number] [place] [address] Aug, [facility] [address] [id number], [place] [id number] Jul, [facility] [place] [facility] [address] [facility] [id number] [place] [address] Jul, [facility] [address] [id number], [place] [id number] Jul, [facility] [place] [facility] [address] [facility] [id number] [place] [address] Jul, [facility] [place] [facility] [address] [facility] [id number] [place] [address] Apr, [facility] [address] [id number] [place] [id number] Apr, [facility] [place] [facility] [address] [id number] [place] [address] Apr, [facility] [address] [id number] [place] [id number] Apr, [facility] [place] [facility] [address] [facility] [id number] [place] [address] Apr, [facility] [address] [id number] [place] [id number] Mar, [facility] [place] [facility] [address] [facility] [id number] [place] [address] Mar, [facility] [address] [facility] [id number] [place] [id number] Mar, [facility] [place] [facility] [address] [facility] [id number] [place] [address] Mar, [facility] [address] [facility] [id number], [place] [id number] February, [facility] [place] [facility] [address] [facility] [id number] [place] [address] February, [facility] [place] [facility] [address] [id number] [address] February, [facility] [address] [facility] [id number], [place] [id number] February, [facility] [place] [facility] [address] [facility] [id number] [address] February, [facility] [address] [facility] [id number], [place] [id number] February, [facility] [place] [facility] [address] [facility] [id number] [place] [address] February, [facility] [place] [facility] [address] [facility] [id number] [place] [address] Jan, [facility] [place] [facility] [address] [facility] [id number] [place] [address] Jan, [facility] [place] [facility] [address] [id number] [place] [address] Jan, [facility] [address] [id number] [place] [id number] Jan, [facility] [place] [facility] [address] [id number] [place] [address] Jan, [facility] [address] [facility] [id number] [place] [id number] Jan, [facility] [place] [facility] [address] [id number] [place] [address] Jan, [facility] [address] [facility] [id number] [place] [id number] Jan, [facility] [place] [facility] [address] [facility] [id number] [place] [address] Jan, [facility] [place] [facility] [address] [facility] [id number] [place] [address] Jan, [facility] [place] [facility] [address] [facility] [id number] [place] [address] Jan, [facility] [place] [facility] [address] [facility] [id number] [place] [address] Jan, [facility] [address] [facility] [id number] [place] [id number] Jan, [facility] [address] [facility] [id number] [place] [id number] Jan, [facility] [place] [facility] [address] [facility] [id number] [place] [address] Jan, [facility] [address] [id number] [place] [id number] Jan, [facility] [place] [facility] [address] [facility] [id number] [place] [address] Jan, [facility] [address] [facility] [id number] [place] [id number] Jan, [facility] [place] [facility] [address] [facility] [id number] [place] [address] Jan, [facility] [address] [id number] [place] [id number] Dec, [facility] [place] [facility] [address] [facility] [id number] [place] [address] Dec, [facility] [address] [id number] [place] [id number] Dec, [facility] [place] [facility] [address] [facility] [id number] [place] [address] Dec, [facility] [address] [id number] [place] [id number] Dec, [facility] [place] [facility] [address] [facility] [id number] [place] [address] Dec, [facility] [address] [id number] [place] [id number] Dec, [facility] [place] [facility] [id number] [place] [address] Dec, [facility] [address] [id number] [place] [id number] Nov, [facility] [place] [facility] [address] [facility] [id number] [address] Nov, [facility] [address] [id number] [place] [id number] Nov, [facility] [place] [facility] [address] [facility] [id number] [place] [address] Nov, [facility] [place] [facility] [address] [facility] [id number] [place] [address] Nov, [facility] [place] [facility] [address] [facility] [id number] [place] [address] Nov, [facility] [place] [facility] [address] [facility] [id number] [place] [address] Nov, [facility] [place] [facility] [address] [facility] [id number] [place] [address] Nov, [facility] [address] [id number], [place] [id number] Oct, [facility] [place] [facility] [address] [facility] [id number] [place] [address] Oct, [facility] [place] [facility] [address] [facility] [id number] [place] [address] Oct, [facility] [address] [facility] [id number][place] [id number] Oct, [facility] [address] [facility] [id number] [place] [address] Oct, [facility] [address] [facility] [id number][place] [id number] Oct, [facility] [id number] [address] Oct, [facility] [address] [id number][place] [id number] Aug, [facility] [id number] [address] Aug, [facility] [address] [facility] [id number][place] [id number] Jul, [facility] [id number] [address] Mar, [facility] [address] [facility] [id number][place] [id number] Mar, [facility] [id number] [address] Mar, [facility] [address] [facility] [id number], [place] [id number] Jan, [facility] [address] [facility] [id number][place] [id number] Sep, [facility] [address] [facility] [id number] [place] [address] Sep, [facility] [address] [facility] [id number], [place] [id number] May, [facility] [address] [id number][place] [id number] Apr, [facility] [address] [id number][place] [id number] Mar, [facility] [address] [id number], [place] [id number] Mar, [facility] [address] [id number], [place] [id number] February, [facility] [id number][place] [id number] Jan, [facility] [id number] [place] [address] Mar, [facility] [id number] [place] [id number] Sep, [facility] [id number] [place] [id number] Aug, [facility] [id number] [place] [id number] Aug, [facility] [id number] [place] [id number] Aug, [facility] [id number] [place] [id number] Aug, [facility] [id number] [address] Aug, [facility] [id number] [address] Jul, [facility] [id number] [address] Apr, IMMUNIZATIONS No Known Immunizations SOCIAL HISTORY Never Assessed REASON FOR VISIT Medication refill PLAN OF CARE VITAL SIGNS MEDICATIONS Medication Instructions Dosage Frequency Start Date End Date Duration Status Omeprazole 20 mg Orally Once a day 1 capsules 24h Aug, 90 days Active Hydrocodone-Acetaminophen 5-325 MG Orally 3 times a day must last 28 days 1- 2 tablet as needed Aug, 30 days Active RESULTS No Results PROCEDURES No Known [...]
--- OUTSIDE RECORDS SUMMARY | 2019-04-19 10:26 | XMS REPORT ---
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 [employer]astic [employer] Name Role Phone Migration, Doctor Unavailable Unavailable PROBLEMS Type Condition ICD9-CM Code MDL13-OS Code Onset Dates Condition Status SNOMED Code Problem OCD (obsessive compulsive disorder) F42 Active 955376381 Problem Herniated nucleus pulposus M51.9 Active 10299234 Problem Acquired hypothyroidism E03.9 Active 006731734 Problem Anxiety F41.9 Active 93852739 Problem Cervicalgia M54.2 Active 50894655 Problem Moderate episode of recurrent major depressive disorder F33.1 Active 410520158 Problem Plantar fasciitis M72.2 Active 705352959 Problem Polyneuropathy G62.9 Active 87793758 ALLERGIES No Information ENCOUNTERS Encounter Location Date Diagnosis [place] [id number] [place] [address] [id number] Jan, Polyneuropathy G62.9 [place] [id number] [place] [address] [id number] Dec, Herniated nucleus pulposus M51.9 [place] [id number] [place] [address] [id number] Dec, Long-term use of high-risk medication Z79.899 and Lumbar radiculopathy M54.[id number] [place] [address] [id number] Nov, Polyneuropathy G62.9 ; Dermatitis L30.9 and Herniated nucleus pulposus M51.9 [place] [id number] [place] [address] [id number] Nov, [place] [id number] [place] [address] [id number] Oct, Herniated nucleus pulposus M51.9 [id number] [place] [address] [id number] Oct, [place] [id number] [place] [address] [id number] Sep, [facility] [id number] [place] [address] [id number] Sep, Herniated nucleus pulposus M51.9 and Acute cystitis with hematuria N30.01 [facility] [id number] [place] [address] [id number] Aug, Herniated nucleus pulposus M51.9 [place] [id number] [place] [address] [id number] Jul, [place] [id number] [place] [address] [id number] Jul, Mass of right upper extremity R22.31 and Foreign body in right foot, initial encounter S90.851A [place] [id number] [place] [address] [id number] Jul, Foreign body in right foot, initial encounter S90.851A [place] [id number] [place] [address] [id number] Jul, Acquired hypothyroidism E03.9 [place] [id number] [place] [address] [id number] Jul, Moderate episode of recurrent major depressive disorder F33.1 ; Herniated nucleus pulposus M51.9 ; Cervicalgia M54.2 ; Polyneuropathy G62.9 and Acquired hypothyroidism E03.9 [place] [id number] [place] [address] [id number] Jun, [place] [id number] [place] [address] [id number] Jun, Herniated nucleus pulposus M51.9 [place] [id number] [id number] May, Herniated nucleus pulposus M51.9 [place] [id number] [place] [address] [id number] Apr, Herniated nucleus pulposus M51.9 [place] [id number] [place] [address] [id number] Apr, [place] [id number] [place] [address] [id number] Apr, Acquired hypothyroidism E03.9 [place] [id number] [place] [address] [id number] Apr, Acquired hypothyroidism E03.9 [place] [id number] [place] [address] [id number] Apr, [place] [id number] [place] [address] [id number] Mar, Herniated nucleus pulposus M51.9 and Nodule, subcutaneous R22.9 [place] [id number] [place] [address] [id number] Mar, Herniated nucleus pulposus M51.9 [place] [id number] [place] [address] [id number] February, Herniated nucleus pulposus M51.9 ; Polyneuropathy G62.9 and Anxiety F41.[address] [id number] Jan, Herniated nucleus pulposus M51.9 ; Moderate episode of recurrent major depressive disorder F33.1 and Acquired hypothyroidism E03.9 [place] [id number] [place] [address] [id number] Dec, Herniated nucleus pulposus M51.9 [place] [id number] [place] [address] [id number] Nov, Cervicalgia M54.2 and Herniated nucleus pulposus M51.9 [place] [id number] [place] [address] [id number] Oct, Herniated nucleus pulposus M51.9 and OCD (obsessive compulsive disorder) F42 [place] [id number] [place] [address] [id number] Oct, Herniated nucleus pulposus M51.9 [place] [id number] [place] [address] [id number] Aug, Acquired hypothyroidism E03.9 [place] [id number] [place] [address] [id number] Aug, Herniated nucleus pulposus M51.9 and Acquired hypothyroidism E03.9 [facility] [address] [id number], [place] [address] Aug, [facility] [id number] [place] [address] [id number] Jul, Herniated nucleus pulposus M51.9 ; OCD (obsessive compulsive disorder) F42 and Pain of right upper extremity M79.601 [facility] [id number] [place] [address] [id number] Jul, Anxiety F41.9 [facility] [id number] [place] [address] [id number] Jul, [place] [id number] [place] [address] [id number] Jun, OCD (obsessive compulsive disorder) F42 ; Herniated nucleus pulposus M51.9 and Acute cystitis with hematuria N30.01 [place] [id number] [place] [address] [id number] Jun, Anxiety F41.9 [place] [id number] [place] [address] [id number] Jun, [facility] [id number] [place] [address] [id number] May, Acquired hypothyroidism E03.9 [place] [id number] [place] [address] [id number] May, Polyneuropathy G62.9 ; OCD (obsessive compulsive disorder) F42 ; Herniated nucleus pulposus M51.9 ; Screening for lipid disorders Z13.220 ; Long-term use of high- risk medication Z79.899 and Major depressive disorder, recurrent, moderate F33.1 [facility] [address] [id number][place] [id number] May, Dental examination Z01.20 [place] [id number] [place] [address] [id number] May, Herniated nucleus pulposus M51.9 [id number] [place] [address] [id number] May, Herniated nucleus pulposus M51.9 and Anxiety F41.9 [place] [id number] [id number] Apr, Herniated nucleus pulposus M51.9 and Cervicalgia M54.2 [facility] [id number] [place] [address] [id number] Apr, Moderate episode of recurrent major depressive disorder F33.1 [facility] [id number] [place] [address] [id number] Apr, Herniated nucleus pulposus M51.9 [facility] [id number] [place] [address] [id number] Apr, Herniated nucleus pulposus M51.9 [facility] [id number] [place] [address] [id number] Mar, Moderate episode of recurrent major depressive disorder F33.1 [facility] [id number] [place] [address] [id number] Mar, Anxiety F41.9 [place] [id number] [place] [address] [id number] Mar, [facility] [address] [id number] [place] [address] [id number] Mar, Herniated nucleus pulposus M51.9 and Cervicalgia M54.2 [facility] [id number] [place] [address] [id number] February, Acquired hypothyroidism E03.9 [place] [id number] [place] [address] [id number] February, Polyneuropathy G62.9 ; Herniated nucleus pulposus M51.9 ; Cervicalgia M54.2 and Acquired hypothyroidism E03.9 [facility] [address] [id number], [place] [id number] Jan, [facility] [id number] [place] [address] [id number] Jan, Cervicalgia M54.2 and Moderate episode of recurrent major depressive disorder F33.1 [facility] [address] [id number], [place] [id number] Dec, Cervicalgia M54.2 and Herniated nucleus pulposus M51.9 [facility] [address] [id number][place] [id number] Nov, Lymph nodes enlarged R59.9 [facility] [id number] [place] [address] [id number] Oct, Cervicalgia M54.2 [facility] [address]005[place]100[place] [address] Sep, Polyneuropathy G62.9 [facility] [id number] [place] [address] [id number] Sep, Cervicalgia M54.2 and Herniated nucleus pulposus M51.9 [facility] [id number] [place] [address] [id number] Aug, Lumbar radiculopathy M54.16 and Spinal stenosis at L4-L5 level M48.06 [facility] [id number] [place] [address] [id number] Aug, Cervicalgia M54.2 and Herniated nucleus pulposus M51.9 [facility] [id number] [place] [address] [id number] Jul, [facility] [id number] [place] [address] [id number] Jun, Cervicalgia M54.2 and Herniated nucleus pulposus M51.9 [facility] [id number] [place] [address] [id number] May, Plantar fasciitis M72.2 [facility] [id number] [place] [address] [id number] May, [facility] [id number] [place] [address] [id number] Apr, Screening for lipid disorders Z13.220 ; Long-term use of high-risk medication Z79.899 and Major depressive disorder, recurrent, moderate F33.1 [facility] [id number] [place] [address] [id number] Apr, [facility] [id number] [place] [address] [id number] Mar, Herniated nucleus pulposus M51.9 and Cervicalgia M54.2 [place] [id number] [place] [address] [id number] Mar, Cervicalgia M54.2 and Herniated nucleus pulposus M51.9 [facility] [id number] [place] [address] [id number] February, [place] [id number] [place] [address] [id number] February, Cervicalgia M54.2 and Herniated nucleus pulposus M51.9 [place] [address] [id number] [place] [address] [id number] Dec, Syncope, unspecified syncope type R55 [address] [id number] Dec, Cervicalgia M54.2 ; Herniated nucleus pulposus M51.9 and Moderate episode of recurrent major depressive disorder F33.[address] [id number] Dec, [address] [id number] Dec, Herniated nucleus pulposus M51.9 and Cervicalgia M54.2 [place] [id number] [place] [address] [id number] Nov, [address] [id number] Nov, Herniated nucleus pulposus M51.9 and OCD (obsessive compulsive disorder) F42 [place] [id number] [place] [address] [id number] Sep, Displacement of intervertebral disc, site unspecified, without myelopathy 722.2 ; Cervicalgia 723.1 and Hypothyroidism, unspecified type E03.9 [place] [id number] [place] [address] [id number] Sep, [address] [id number] Jun, Displacement of intervertebral disc, site unspecified, without myelopathy 722.2 and Cervicalgia 723.1 [place] [id number] [place] [address] [id number] Mar, Displacement of intervertebral disc, site unspecified, without myelopathy 722.2 and Shingles 053.9 [facility] [id number], [place] [id number] February, Shingles 053.9 [facility] [id number], [place] [id number] February, Displacement of intervertebral disc, site unspecified, without myelopathy 722.2 ; Tension headache 307.81 and Cervicalgia 723.1 [facility] [id number], [place] [id number] February, [facility] [id number] [place] [address] [id number] February, [facility] [id number] [place] [address] [id number] February, [facility] [id number] [place] [address] Jan, [facility] [id number] [place] [address] Jan, [facility] [id number] [place] [address] [id number] Jan, [facility] [id number] [place] [address] Jan, [facility] [id number] [place] [address] Jan, [facility] [id number], [place] [id number] Dec, [facility] [id number] [place] [phone] Dec, [facility] [id number], [place] [id number] Dec, [facility] [id number] [place] [address] Dec, [facility] [id number] [place] [address] [id number] Nov, [facility] [place] [facility] [address] [facility] [id number], [place] [address] Nov, [facility] [address] [facility] [id number][place] [id number] Oct, [facility] [place] [facility] [address] [facility] [id number], [place] [address] Oct, [facility] [address] [id number] [place] [id number] Oct, [facility] [place] [facility] [address] [facility] [id number][place] [address] Oct, [facility] [address] [id number] [place] [id number] Oct, [facility] [address] [facility] [id number], [place] [id number] Oct, [facility] [place] [facility] [address]00565100[place], [place] [address] Oct, [facility] [place] [facility] [address] [facility] [id number], [place] [address] Oct, [facility] [address] [facility] [id number], [place] [id number] Oct, [facility] [place] [facility] [address] [facility] [id number], [place] [address] Oct, [facility] [address] [facility] [id number], [place] [id number] Oct, [facility] [place] [facility] [address] [facility] [id number], [place] [address] Oct, [facility] [address] [facility] [id number], [place] [id number] Sep, [facility] [place] [facility] [address] [facility] [id number], [place] [address] Sep, [facility] [address] [facility] [id number], [place] [id number] Aug, [facility] [place] [facility] [address] [facility] [id number][place] [address] Aug, [facility] [place] [facility] [address] [id number] [place] [address] Aug, [facility] [address] [id number] [place] [id number] Aug, [facility] [address] [id number] [place] [id number] Aug, [facility] [place] [facility] [address] [id number] [place] [address] Aug, [facility] [address] [id number] [place] 0[address]605214 Jul, [facility] [place] [facility] [address] [id number] [place] [address] Jul, [facility] [address] [id number] [place] [id number] Jul, [facility] [place] [facility] [address] [facility] [id number], [place] [address] Jul, [facility] [place] [facility] [address] [facility] [id number], [place] [address] Apr, [facility] [address] [id number] [place] [id number] Apr, [facility] [place] [facility] [address] [facility] [id number], [place] [address] Apr, [facility] [address] [id number], [place] [id number] Apr, [facility] [place] [facility] [address] [facility] [id number], [place] [address] Apr, [facility] [address] [id number] [place] [id number] Mar, [facility] [place] [facility] [address] [facility] [id number], [place] [address] Mar, [facility] [address] [id number] [place] [id number] Mar, [facility] [place] [facility] [address] [facility] [id number], [place] [address] Mar, [facility] [address] [facility] [id number] [place] [id number] February, [facility] [place] [facility] [address] [facility] [id number] [place] [address] February, [facility] [place] [facility] [address] [facility] [id number] [place] [address] February, [facility] [address] [facility] [id number] [place] [address] February, [facility] [place] [facility] [address] [id number] [place] [address] February, [facility] [address] [facility] [id number] [place] 839555743 February, [facility] [place] [facility] [address] [facility] [id number] [place] [address] February, [facility] [place] [facility] [address] [facility] [id number], [place] [address] Jan, [facility] [place] [facility] [address] [facility] [id number] [place] [address] Jan, [facility] [place] [facility] [address] [facility] [id number], [place] [address] Jan, [facility] [address] [facility] [id number] [place] 8[address]80[address] Jan, [facility] [place] [facility] [address] [facility] [id number], [place] [address] Jan, [facility] [address] [facility] [id number], [place] 790660084 Jan, [facility] [place] [facility] [address] [facility] [id number] [place] [address] Jan, [facility] [address] [facility] [id number] [place] [address]88[address] Jan, [facility] [place] [facility] [address] [facility] [id number], [place] [address] Jan, [facility] [place] [facility] [address] [facility] [id number] [place] [address] Jan, [facility] [place] [facility] [address] [facility] [id number] [place] [address] Jan, [facility] [place] [facility] [address] [facility] [id number] [place] [address] Jan, [facility] [address] [id number] [place] 1484726[address] Jan, [facility] [address] [facility] [id number] [place] 112015[address] Jan, [facility] [place] [facility] [address] [facility] [id number] [place] [address] Jan, [facility] [address] [facility] [id number] [place] 92[address]39[address] Jan, [facility] [place] [facility] [address] [id number], [place] [address] Jan, [facility] [address] [facility] [id number] [place] 379[address]33[address] Jan, [facility] [place] [facility] [address] [facility] [id number], [place] [address] Jan, [facility] [address] [facility] [id number], [place] 48[address]416[address] Dec, [facility] [place] [facility] [address] [facility] [id number], [place] [address] Dec, [facility] [address] [facility] [id number], [place] 503093973 Dec, [facility] [place] [facility] [address] [facility] [id number] [place] [address] Dec, [facility] [address] [facility] [id number] [place] 8[address] Dec, [facility] [place] [facility] [address] [facility] [id number] [place] [address] Dec, [facility] [address] [facility] [id number] [place] [id number] Dec, [facility] [place] [facility] [address] [facility] [id number] [place] [address] Dec, [facility] [address] [facility] [id number] [place] [id number] Nov, [facility] [place] [facility] [address] [facility] [id number] [place] [address] Nov, [facility] [address] [facility] [id number] [place] [address] Nov, [facility] [place] [facility] [address] [facility] [id number] [place] [address] Nov, [facility] [place] [facility] [address] [facility] [id number] [place] [address] Nov, [facility] [place] [facility] [address] [facility] [id number] [place] [address] Nov, [facility] [place] [facility] [id number] [place] [address] Nov, [facility] [place] [facility] [address] [id number] [place] [address] Nov, [facility] [address] [id number] [id number] Oct, [facility] [place] [facility] [address] [id number] [address] Oct, [facility] [place] [facility] [address] [id number] [address] Oct, [facility] [address] [facility] [id number] [id number] Oct, [facility] [place] [facility] [address] [facility] [id number], [place] [address] Oct, [facility] [address] [facility] [id number] [place] [id number] Oct, [facility] [place] [facility] [address] [facility] [id number], [place] [address] Oct, [facility] [address] [id number] [place] [id number] Aug, [facility] [address] [facility] [id number], [place] [address] Aug, [facility] [address] [id number] [place] [address] Jul, [facility] [address] [facility] [id number] [place] [address] Mar, [facility] [address] [id number] [place] [id number] Mar, [facility] [address] [facility] [id number] [place] [address] Mar, [facility] [address] [id number] [place] [id number] Jan, [facility] [address] [id number] [place] [address] Sep, [facility] [id number] [place] [address] Sep, [facility] [address] [id number] [place] [id number] May, [facility] [address] [id number] [place] [address] Apr, [facility] [address] [id number] [place] [address] Mar, [facility] [address] [id number] [place] [address] Mar, [facility] [address] [id number] [place] [id number] February, [facility] [address] [id number] [place] [address] Jan, [facility] [place] [facility] [address] [facility] [id number] [place] [address] Mar, [facility] [place] [facility] [address] [id number] [address] Sep, [facility] [place] [facility] [id number] [place] [address], [place] [address] Aug, [facility] [address] [id number] [address] Aug, [facility] [address] [id number], [place] [address] Aug, [facility] [address] [id number], [place] [address] Aug, [facility] [address] [id number], [place] [address] Aug, [facility] [address]00565[address], [place] [address] Jul, [facility] [address] [id number], [place] [address] Apr, IMMUNIZATIONS No Known Immunizations SOCIAL HISTORY Never Assessed REASON FOR VISIT [facility] [place] VITAL SIGNS MEDICATIONS Unknown [...]
--- OUTSIDE RECORDS SUMMARY | 2019-04-19 10:27 | XMS REPORT ---
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 Name Role Phone HILDA WOLF Unavailable PROBLEMS Type Condition ICD9-CM Code AIF19-SG Code Onset Dates Condition Status SNOMED Code Problem Herniated nucleus pulposus M51.9 Active 73108484 Problem OCD (obsessive compulsive disorder) F42 Active 194608271 Problem Anxiety F41.9 Active 95677046 Problem Acquired hypothyroidism E03.9 Active 261135936 Problem Moderate episode of recurrent major depressive disorder F33.1 Active 555482751 Problem Cervicalgia M54.2 Active 50153044 Problem Polyneuropathy G62.9 Active 51453140 Problem Plantar fasciitis M72.2 Active [id number] ALLERGIES No Information ENCOUNTERS Encounter Location Date Diagnosis [facility] [id number] [place] [address] [id number] Jun, [facility] [address] [id number] Jun, Herniated nucleus pulposus M51.9 [facility] [id number] [place] [address] [id number] May, Herniated nucleus pulposus M51.9 [facility] [id number] [place] [address] [id number] Apr, Herniated nucleus pulposus M51.9 [facility] [id number] [place] [address] [id number] Apr, [facility] [address] [id number] Apr, Acquired hypothyroidism E03.9 [facility] [id number] [place] [address] [id number] Apr, Acquired hypothyroidism E03.9 [facility] [address] [id number] Apr, [facility] [address] [id number] [id number] Mar, Herniated nucleus pulposus M51.9 and Nodule, subcutaneous R22.9 [facility] [id number] [id number] Mar, Herniated nucleus pulposus M51.9 [id number] [place] [address] [id number] February, Herniated nucleus pulposus M51.9 ; Polyneuropathy G62.9 and Anxiety F41.9 [address] [id number] [place] [address] [id number] Jan, Herniated nucleus pulposus M51.9 ; Moderate episode of recurrent major depressive disorder F33.1 and Acquired hypothyroidism E03.9 [facility] [id number] [place] [address] [id number] Dec, Herniated nucleus pulposus M51.9 [address] [id number] [place] [address] [id number] Nov, Cervicalgia M54.2 and Herniated nucleus pulposus M51.9 [address] [id number] [place] [address] [id number] Oct, Herniated nucleus pulposus M51.9 and OCD (obsessive compulsive disorder) F42 [facility] [address] [id number] [id number] Oct, Herniated nucleus pulposus M51.9 [address] [place] [address] [id number] Aug, Acquired hypothyroidism E03.9 [id number] [id number] Aug, Herniated nucleus pulposus M51.9 and Acquired hypothyroidism E03.9 [facility] [address] [id number], [place] [address] Aug, [facility] [address] [id number] [id number] Jul, Herniated nucleus pulposus M51.9 ; OCD (obsessive compulsive disorder) F42 and Pain of right upper extremity M79.601 [facility] [id number] [place] [address] [id number] Jul, Anxiety F41.9 [address] [address] [id number] [place] [address] [id number] Jul, [facility] [id number] [place] [address] [id number] Jun, OCD (obsessive compulsive disorder) F42 ; Herniated nucleus pulposus M51.9 and Acute cystitis with hematuria N30.01 [facility] [id number] [place] [address] [id number] Jun, Anxiety F41.9 [id number] [place] [address] [id number] Jun, [place] [id number] [place] [address] [id number] May, Acquired hypothyroidism E03.9 [id number] [place] [address] [id number] May, Polyneuropathy G62.9 ; OCD (obsessive compulsive disorder) F42 ; Herniated nucleus pulposus M51.9 ; Screening for lipid disorders Z13.220 ; Long-term use of high- risk medication Z79.899 and Major depressive disorder, recurrent, moderate F33.1 [facility] [address] [id number] [id number] May, Dental examination Z01.20 [facility] [address] [place] [address] [id number] May, Herniated nucleus pulposus M51.9 [address] [place] [address] [id number] May, Herniated nucleus pulposus M51.9 and Anxiety F41.9 [address] [place] [address] [id number] Apr, Herniated nucleus pulposus M51.9 and Cervicalgia M54.[address] [place] [address] [id number] Apr, Moderate episode of recurrent major depressive disorder F33.1 [facility] [id number], [place] [id number] Apr, Herniated nucleus pulposus M51.9 [facility] [id number] [place] [address] [id number] Apr, Herniated nucleus pulposus M51.9 [facility] [id number] [place] [address] [id number] Mar, Moderate episode of recurrent major depressive disorder F33.1 [facility] [id number] [place] [address] [id number] Mar, Anxiety F41.9 [place] [id number] [place] [address] [id number] Mar, [facility] [id number] [place] [address] [id number] Mar, Herniated nucleus pulposus M51.9 and Cervicalgia M54.2 [id number] [place] [address] [id number] February, Acquired hypothyroidism E03.9 [place] [id number] [place] [address] [id number] February, Polyneuropathy G62.9 ; Herniated nucleus pulposus M51.9 ; Cervicalgia M54.2 and Acquired hypothyroidism E03.9 [facility] [id number] [place] [address] [id number] Jan, [id number] [place] [address] [id number] Jan, Cervicalgia M54.2 and Moderate episode of recurrent major depressive disorder F33.1 [facility] [id number] [place] [address] [id number] Dec, Cervicalgia M54.2 and Herniated nucleus pulposus M51.9 [address] [place] [address] [id number] Nov, Lymph nodes enlarged R59.9 [address] [place] [address] [id number] Oct, Cervicalgia M54.2 [facility] [address] [id number] [address] Sep, Polyneuropathy G62.9 [facility] [id number] [place] [address] [id number] Sep, Cervicalgia M54.2 and Herniated nucleus pulposus M51.9 [facility] [id number] [place] [address] [id number] Aug, Lumbar radiculopathy M54.16 and Spinal stenosis at L4-L5 level M48.06 [facility] [id number] [place] [address] [id number] Aug, Cervicalgia M54.2 and Herniated nucleus pulposus M51.9 [facility] [id number] [place] [address] [id number] Jul, [facility] [id number] [place] [address] [id number] Jun, Cervicalgia M54.2 and Herniated nucleus pulposus M51.9 [facility] [id number] [place] [address] [id number] May, Plantar fasciitis M72.2 [facility] [id number] [place] [address] [id number] May, [facility] [id number] [place] [address] [id number] Apr, Screening for lipid disorders Z13.220 ; Long-term use of high-risk medication Z79.899 and Major depressive disorder, recurrent, moderate F33.1 [facility] [id number][place] [id number] Apr, [facility] [id number], [place] [id number] Mar, Herniated nucleus pulposus M51.9 and Cervicalgia M54.2 [facility] [id number] [place] [address] [id number] Mar, Cervicalgia M54.2 and Herniated nucleus pulposus M51.9 [address] [id number] [place] [address] [id number] February, [place] [id number] [place] [address] [id number] February, Cervicalgia M54.2 and Herniated nucleus pulposus M51.9 [place] [id number] [place] [address] [id number] Dec, Syncope, unspecified syncope type R55 [id number] [place] [address] [id number] Dec, Cervicalgia M54.2 ; Herniated nucleus pulposus M51.9 and Moderate episode of recurrent major depressive disorder F33.1 [id number] [place] [address] [id number] Dec, [address] [id number] Dec, Herniated nucleus pulposus M51.9 and Cervicalgia M54.2 [id number] [place] [address] [id number] Nov, [place] [address] [id number] Nov, Herniated nucleus pulposus M51.9 and OCD (obsessive compulsive disorder) F42 [id number] [place] [address] [id number] Sep, Displacement of intervertebral disc, site unspecified, without myelopathy 722.2 ; Cervicalgia 723.1 and Hypothyroidism, unspecified type E03.9 [address] [place] [address] [id number] Sep, [address] [id number] Jun, Displacement of intervertebral disc, site unspecified, without myelopathy 722.2 and Cervicalgia 723.1 [id number] [place] [address] [id number] Mar, Displacement of intervertebral disc, site unspecified, without myelopathy 722.2 and Shingles 053.9 [id number] [place] [address] [id number] February, Shingles 053.[id number], [place] [id number] February, Displacement of intervertebral disc, site unspecified, without myelopathy 722.2 ; Tension headache 307.81 and Cervicalgia 723.1 [facility] [id number], [place] [id number] February, [facility] [id number], [place] [id number] February, [facility] [id number], [place] [id number] February, [facility] [id number] [place] [address] Jan, [facility] [place] [facility] [id number] [place] [address] Jan, [facility] [id number] [place] [address] [id number] Jan, [facility] [id number] [place] [address] Jan, [facility] [id number] [place] [address] Jan, [facility] [id number], [place] [id number] Dec, [facility] [address] [id number], [place] [address] Dec, [facility] [id number], [place] [id number] Dec, [facility] [place] [address]00565100[place], [place] [address] Dec, [facility] [id number], [place] [id number] Nov, [facility] [place] [address]00565100[place], [place] [address] Nov, [facility] [id number], [place] [id number] Oct, [facility] [place] [address] [id number], [place] [address] Oct, [facility] [address] [id number] [place] [id number] Oct, [facility] [place] [address] [id number], [place] [address] Oct, [facility] [address] [id number], [place] [id number] Oct, [facility] [address] [id number], [place] [id number] Oct, [facility] [place] [facility] [address] [facility] [id number], [place] [address] Oct, [facility] [address] [facility] [id number], [place] [address] Oct, [facility] [address] [facility] [id number], [place] [id number] Oct, [facility] [place] [facility] [address] [facility] [id number], [place] [address] Oct, [facility] [address] [facility] [id number], [place] [id number] Oct, [facility] [place] [address] [facility] [id number], [place] [address] Oct, [facility] [address] [facility] [id number], [place] [id number] Sep, [facility] [place] [facility] [address] [facility] [id number], [place] [address] Sep, [facility] [address] [facility] [id number], [place] [id number] Aug, [facility] [place] [address] [facility] [id number], [place] [address] Aug, [facility] [place] [facility] [address] [facility] [id number], [place] [address] Aug, [facility] [address] [facility] [id number], [place] [id number] Aug, [facility] [address] [id number] [place] [id number] Aug, [facility] [place] [facility] [address] [facility] [id number] [place] [address] Aug, [facility] [address] [id number] [place] [id number] Jul, [facility] [place] [facility] [address] [facility] [id number], [place] [address] Jul, [facility] [address] [id number], [place] [id number] Jul, [facility] [place] [facility] [address] [facility] [id number], [place] [address] Jul, [facility] [place] [facility] [address] [facility] [id number], [place] [address] Apr, [facility] [address] [facility] [id number], [place] [id number] Apr, [facility] [place] [facility] [address] [facility] [id number], [place] [address] Apr, [facility] [address] [facility] [id number], [place] [id number] Apr, [facility] [place] [facility] [address] [facility] [id number], [place] [address] Apr, [facility] [address] [facility] [id number], [place] [id number] Mar, [facility] [place] [facility] [address] [facility] [id number], [place] [address] Mar, [facility] [address] [facility] [id number], [place] [id number] Mar, [facility] [place] [facility] [address] [facility] [id number], [place] [address] Mar, [facility] [address] [id number], [place] [id number] February, [facility] [place] [facility] [address] [facility] [id number], [place] [address] February, [facility] [place] [facility] [address] [id number] [place] [address] February, [facility] [address] [facility] [id number] [place] [id number] February, [facility] [place] [facility] [address] [id number] [place] [address] February, [facility] [address] [facility] [id number] [place] [id number] February, [facility] [place] [facility] [address] [id number] [place] [address] February, [facility] [place] [facility] [address] [id number] [place] [address] Jan, [facility] [place] [facility] [address] [id number] [place] [address] Jan, [facility] [place] [facility] [address] [id number] [place] [address] Jan, [facility] [address] [facility] [id number] [place] [id number] Jan, [facility] [place] [facility] [address] [id number] [place] [address] Jan, [facility] [address] [id number] [place] [address] Jan, [facility] [place] [facility] [address] [id number] [place] [address] Jan, [facility] [address] [facility] [id number] [place] [id number] Jan, [facility] [place] [facility] [address] [id number] [place] [address] Jan, [facility] [place] [facility] [address] [facility] [id number] [place] [address] Jan, [facility] [place] [facility] [address] [id number] [place] [address] Jan, [facility] [place] [facility] [address] [id number] [place] [address] Jan, [facility] [address] [id number] [place] [id number] Jan, [facility] [address] [id number] [place] [address] Jan, [facility] [place] [facility] [address] [facility] [id number] [place] [address] Jan, [facility] [address] [id number] [place] [id number] Jan, [facility] [place] [facility] [address] [id number] [place] [address] Jan, [facility] [address] [id number] [place] [id number] Jan, [facility] [place] [facility] [address] [facility] [id number] [place] [address] Jan, [facility] [address] [id number], [place] [id number] Dec, [facility] [place] [facility] [address] [facility] [id number] [place] [address] Dec, [facility] [address] [facility] [id number] [place] [id number] Dec, [facility] [place] [facility] [address] [id number], [place] [address] Dec, [facility] [address] [id number] [place] [id number] Dec, [facility] [place] [facility] [address] [facility] [id number], [place] [address] Dec, [facility] [address] [id number] [place] [id number] Dec, [facility] [place] [facility] [address] [facility] [id number] [place] [address] Dec, [facility] [address] [id number] [place] [id number] Nov, [facility] [place] [facility] [address] [facility] [id number], [place] [address] Nov, [facility] [address] [facility] [id number], [place] [address] Nov, [facility] [place] [facility] [address] [facility] [id number], [place] [address] Nov, [facility] [place] [facility] [address] [facility] [id number], [place] [address] Nov, [facility] [place] [facility] [address] [facility] [id number] [place] [address] Nov, [facility] [place] [facility] [address] [facility] [id number] [place] [address] Nov, [facility] [place] [facility] [address] [facility] [id number], [place] [address] Nov, [facility] [id number], [place] [id number] Oct, [facility] [place] [facility] [address] [facility] [id number], [place] [address] Oct, [facility] [place] [facility] [address]00565100[place], [place] [address] Oct, [facility] [address] [id number], [place] 111[address] Oct, [facility] [place] [facility] [address] [facility] [id number], [place] [address] Oct, [facility] [address] [facility] [id number], [place] [id number] Oct, [facility] [place] [facility] [address] [facility] [id number], [place] [address] Oct, [facility] [address] [facility] [id number], [place] [id number] Aug, [facility] [place] [facility] [address] [facility] [id number], [place] [address] Aug, [facility] [address] [facility] [id number], [place] [address]8632 Jul, [facility] [place] [facility] [address] [facility] [id number], [place] [address] Mar, [facility] [address] [id number] [place] [id number] Mar, [facility] [address] [id number], [place] [address] Mar, [facility] [address] [id number] [place] [id number] Jan, [facility] [address] [id number] [place] [id number] Sep, [facility] [address] [facility] [id number] [place] [id number] Sep, [facility] [address] [id number] [place] [id number] May, [facility] [address] [id number] [place] [id number] Apr, [facility] [address] [id number] [place] [id number] Mar, [facility] [address] [id number] [place] [id number] Mar, [facility] [address] [id number] [place] [id number] February, [facility] [address] [id number] [place] [id number] Jan, [facility] [id number], [place] [address] Mar, [facility] [address] [facility] [id number], [place] [address] Sep, [facility] [id number] [place] [id number] Aug, [facility] [id number], [place] [address] Aug, [facility] [id number] [place] [id number] Aug, [facility] [address] [facility] [id number] [place] [address] Aug, [facility] [address] [facility] [id number], [place] [address] Aug, [facility] [address] [facility] [id number], [place] [address] Jul, [facility] [address] [facility] [id number], [place] [address] Apr, IMMUNIZATIONS No Known Immunizations SOCIAL HISTORY Never Assessed REASON FOR VISIT Medication/other question PLAN OF CARE VITAL SIGNS MEDICATIONS Medication Instructions Dosage Frequency Start Date End Date Duration Status TENS Unit device Use as directed Jun, Active RESULTS No Results PROCEDURES No Known [...]
--- OUTSIDE RECORDS SUMMARY | 2019-04-19 10:27 | XMS REPORT ---
Author Author HILDA WOLF [facility] Address [address] [place] [address] Care Team Providers Care Microsoft Access Developer Name Role Phone HILDA WOLF Unavailable PROBLEMS Type Condition ICD9-CM Code GSG30-GH Code Onset Dates Condition Status SNOMED Code Problem Herniated nucleus pulposus M51.9 Active 65569788 Problem OCD (obsessive compulsive disorder) F42 Active 049415965 Problem Anxiety F41.9 Active 32783412 Problem Acquired hypothyroidism E03.9 Active 291758472 Problem Moderate episode of recurrent major depressive disorder F33.1 Active 523997728 Problem Cervicalgia M54.2 Active 28960163 Problem Polyneuropathy G62.9 Active 37248467 Problem Plantar fasciitis M72.2 Active 292759341 ALLERGIES No Information ENCOUNTERS Encounter Location Date Diagnosis [place] [id number] [place] [address] [id number] Jul, [address] [id number] Jul, Mass of right upper extremity R22.31 and Foreign body in right foot, initial encounter S90.851A [place] [id number] [place] [address] [id number] Jul, Foreign body in right foot, initial encounter S90.851A [address] [id number] Jul, Acquired hypothyroidism E03.[address] [id number] Jul, 2018 Moderate episode of recurrent major depressive disorder F33.1 ; Herniated nucleus pulposus M51.9 ; Cervicalgia M54.2 ; Polyneuropathy G62.9 and Acquired hypothyroidism E03.9 [place] [id number] [place] [address] [id number] Jun, [id number] [id number] Jun, Herniated nucleus pulposus M51.9 [facility] [id number] [place] [address] [id number] May, Herniated nucleus pulposus M51.9 [facility] [id number] [place] [address] [id number] Apr, Herniated nucleus pulposus M51.9 [facility] [id number] [place] [address] [id number] Apr, [facility] [id number] [place] [address] [id number] Apr, Acquired hypothyroidism E03.9 [place] [id number] [place] [address] [id number] Apr, Acquired hypothyroidism E03.9 [place] [address] [id number] Apr, [place] [id number] [place] [address] [id number] Mar, Herniated nucleus pulposus M51.9 and Nodule, subcutaneous R22.9 [place] [id number] [place] [address] [id number] Mar, Herniated nucleus pulposus M51.9 [place] [id number] [place] [address] [id number] February, Herniated nucleus pulposus M51.9 ; Polyneuropathy G62.9 and Anxiety F41.9 [place] [id number] [place] [address] [id number] Jan, Herniated nucleus pulposus M51.9 ; Moderate episode of recurrent major depressive disorder F33.1 and Acquired hypothyroidism E03.9 [place] [id number] [place] [address] [id number] Dec, Herniated nucleus pulposus M51.9 [place] [id number] [place] [address] [id number] Nov, Cervicalgia M54.2 and Herniated nucleus pulposus M51.9 [place] [id number] [id number] Oct, Herniated nucleus pulposus M51.9 and OCD (obsessive compulsive disorder) F42 [facility] [id number] [place] [address] [id number] Oct, Herniated nucleus pulposus M51.9 [facility] [place] [id number] [place] [address] [id number] Aug, Acquired hypothyroidism E03.9 [facility] [id number] [place] [address] [id number] Aug, Herniated nucleus pulposus M51.9 and Acquired hypothyroidism E03.9 [facility] [id number] [place] [address] Aug, [facility] [id number] [place] [address] [id number] Jul, Herniated nucleus pulposus M51.9 ; OCD (obsessive compulsive disorder) F42 and Pain of right upper extremity M79.601 [facility] [id number] [place] [address] [id number] Jul, Anxiety F41.9 [place] [id number] [place] [address] [id number] Jul, [facility] [id number] [place] [address] [id number] Jun, OCD (obsessive compulsive disorder) F42 ; Herniated nucleus pulposus M51.9 and Acute cystitis with hematuria N30.01 [facility] [id number] [place] [address] [id number] Jun, Anxiety F41.9 [facility] [id number] [place] [address] [id number] Jun, [place] [id number] [place] [address] [id number] May, Acquired hypothyroidism E03.9 [facility] [id number] [place] [address] [id number] May, Polyneuropathy G62.9 ; OCD (obsessive compulsive disorder) F42 ; Herniated nucleus pulposus M51.9 ; Screening for lipid disorders Z13.220 ; Long-term use of high- risk medication Z79.899 and Major depressive disorder, recurrent, moderate F33.1 [facility] [address] [id number] [place] [id number] May, Dental examination Z01.20 [facility] [id number] [place] [address] [id number] May, Herniated nucleus pulposus M51.9 [facility] [id number] [place] [address] [id number] May, Herniated nucleus pulposus M51.9 and Anxiety F41.9 [facility] [id number] [place] [address] [id number] Apr, Herniated nucleus pulposus M51.9 and Cervicalgia M54.2 [facility] [id number] [place] [address] [id number] Apr, Moderate episode of recurrent major depressive disorder F33.1 [facility] [id number] [place] [address] [id number] Apr, Herniated nucleus pulposus M51.9 [facility] [id number] [place] [address] [id number] Apr, Herniated nucleus pulposus M51.9 [facility] [id number] [place] [address] [id number] Mar, Moderate episode of recurrent major depressive disorder F33.1 [facility] [id number] [place] [address] [id number] Mar, Anxiety F41.9 [facility] [id number] [place] [address] [id number] Mar, [facility] [id number] [place] [address] [id number] Mar, Herniated nucleus pulposus M51.9 and Cervicalgia M54.2 [facility] [id number] [place] [address] [id number] February, Acquired hypothyroidism E03.9 [facility] [id number] [place] [address] [id number] February, Polyneuropathy G62.9 ; Herniated nucleus pulposus M51.9 ; Cervicalgia M54.2 and Acquired hypothyroidism E03.9 [facility] [id number] [place] [address] [id number] Jan, [facility] [id number] [place] [address] [id number] Jan, Cervicalgia M54.2 and Moderate episode of recurrent major depressive disorder F33.1 [facility] [place] [id number] [place] [address] [id number] Dec, Cervicalgia M54.2 and Herniated nucleus pulposus M51.9 [facility] [id number] [place] [address] [id number] Nov, Lymph nodes enlarged R59.9 [place] [id number] [place] [address] [id number] Oct, Cervicalgia M54.2 [facility] [id number] [place] [phone] Sep, Polyneuropathy G62.9 [facility] [id number] [place] [address] [id number] Sep, Cervicalgia M54.2 and Herniated nucleus pulposus M51.9 [place] [id number] [place] [address] [id number] Aug, Lumbar radiculopathy M54.16 and Spinal stenosis at L4-L5 level M48.06 [facility] [id number] [place] [address] [id number] Aug, Cervicalgia M54.2 and Herniated nucleus pulposus M51.9 [facility] [address] [id number] Jul, [place] [id number] [place] [address] [id number] Jun, Cervicalgia M54.2 and Herniated nucleus pulposus M51.[id number] [place] [address] [id number] May, Plantar fasciitis M72.[address] [place] [id number] May, [facility] [id number] [place] [address] [id number] Apr, Screening for lipid disorders Z13.220 ; Long-term use of high-risk medication Z79.899 and Major depressive disorder, recurrent, moderate F33.1 [facility] [id number] [place] [address] [id number] Apr, [facility] [id number] [place] [address] [id number] Mar, Herniated nucleus pulposus M51.9 and Cervicalgia M54.2 [place] [id number] [place] [address] [id number] Mar, Cervicalgia M54.2 and Herniated nucleus pulposus M51.9 [facility] [id number] [place] [address] [id number] February, [place] [id number] [place] [address] [id number] February, Cervicalgia M54.2 and Herniated nucleus pulposus M51.9 [facility] [id number] [place] [address] [id number] Dec, Syncope, unspecified syncope type R55 [facility] [id number] [place] [address] [id number] Dec, Cervicalgia M54.2 ; Herniated nucleus pulposus M51.9 and Moderate episode of recurrent major depressive disorder F33.1 [place] [id number] [place] [address] [id number] Dec, [facility] [id number] [place] [address] [id number] Dec, Herniated nucleus pulposus M51.9 and Cervicalgia M54.2 [place] [id number] [place] [address] [id number] Nov, [facility] [id number] [place] [address] [id number] Nov, Herniated nucleus pulposus M51.9 and OCD (obsessive compulsive disorder) F42 [facility] [id number][place] [id number] Sep, Displacement of intervertebral disc, site unspecified, without myelopathy 722.2 ; Cervicalgia 723.1 and Hypothyroidism, unspecified type E03.9 [facility] [id number], [place] [id number] Sep, [facility] [id number] [place] [address] [id number] Jun, Displacement of intervertebral disc, site unspecified, without myelopathy 722.2 and Cervicalgia 723.1 [facility] [id number] [place] [address] [id number] Mar, Displacement of intervertebral disc, site unspecified, without myelopathy 722.2 and Shingles 053.9 [facility] [id number] [place] [address] [id number] February, Shingles 053.9 [place] [id number] [place] [address] [id number] February, Displacement of intervertebral disc, site unspecified, without myelopathy 722.2 ; Tension headache 307.81 and Cervicalgia 723.1 [facility] [id number] [place] [address] [id number] February, [facility] [id number] [place] [address] [id number] February, [facility] [id number] [place] [address] [id number] February, [facility] [id number] [place] [phone] Jan, [facility] [id number] [place] [phone] Jan, [facility] [id number] [place] [address] [id number] Jan, [facility] [id number] [place] [phone] 14 Jan, 2015 [facility] [address] [phone] Jan, [facility] [place] [address] [id number] [place] [id number] Dec, [facility] [place] [facility] [address] [facility] [id number] [place] [address] Dec, [facility] [address] [id number] [place] [id number] Dec, [facility] [place] [facility] [address] [facility] [id number] [place] [address] Dec, [facility] [address] [id number], [place] [id number] Nov, [facility] [place] [facility] [address] [facility] [id number] [place] [address] Nov, [facility] [address] [id number], [place] [id number] Oct, [facility] [place] [facility] [address] [facility] [id number] [place] [address] Oct, [facility] [address] [id number], [place] [phone] Oct, [facility] [place] [facility] [address] [facility] [id number] [place] [address] Oct, [facility] [address] [id number], [place] [id number] Oct, [facility] [address] [id number], [place] [id number] Oct, [facility] [place] [facility] [address] [facility] [id number] [place] [address] Oct, [facility] [place] [facility] [address] [facility] [id number] [place] [address] Oct, [facility] [address] [id number], [place] [phone] Oct, [facility] [place] [facility] [address] [facility] [id number] [place] [address] Oct, [facility] [address] [id number], [place] [id number] Oct, [facility] [place] [facility] [address] [facility] [id number] [place] [address] Oct, [facility] [address] [id number] [place] [id number] Sep, [facility] [place] [facility] [address] [facility] [id number] [place] [address] Sep, [facility] [address] [id number] [place] [phone] Aug, [facility] [place] [facility] [address] [facility] [id number] [place] [address] Aug, [facility] [place] [facility] [address] [facility] [id number] [place] [address] Aug, [facility] [address] [facility] [id number], [place] [id number] Aug, [facility] [address] [facility] [id number], [place] [id number] Aug, [facility] [place] [facility] [address] [facility] [id number] [place] [address] Aug, [facility] [address] [facility] [id number], [place] [id number] Jul, [facility] [place] [facility] [address] [facility] [id number] [place] [address] Jul, [facility] [address] [facility] [id number], [place] [id number] Jul, [facility] [place] [facility] [address] [facility] [id number] [place] [address] Jul, [facility] [place] [facility] [address] [facility] [id number] [place] [address] Apr, [facility] [address] [facility] [id number], [place] [id number] Apr, [facility] [place] [facility] [address] [facility] [id number] [place] [address] Apr, [facility] [address] [id number] [place] [id number] Apr, [facility] [place] [facility] [address] [id number] [place] [address] Apr, [facility] [address] [id number] [place] [id number] Mar, [facility] [place] [facility] [address] [facility] [id number] [place] [address] Mar, [facility] [address] [id number] [place] [id number] Mar, [facility] [place] [facility] [address] [id number] [place] [address] Mar, [facility] [address] [facility] [id number] [place] [id number] February, [facility] [place] [facility] [address] [facility] [id number] [place] [address] February, [facility] [place] [facility] [address] [facility] [id number] [place] [address] February, [facility] [address] [facility] [id number] [place] [id number] February, [facility] [place] [facility] [address] [facility] [id number] [place] [address] February, [facility] [address] [facility] [id number] [place] [id number] February, [facility] [place] [facility] [address] [facility] [id number] [place] [address] February, [facility] [place] [facility] [address] [id number] [place] [address] Jan, [facility] [place] [facility] [address] [facility] [id number] [place] [address] Jan, [facility] [place] [facility] [address] [facility] [id number] [place] [address] Jan, [facility] [address] [facility] [id number], [place] 03805[address] Jan, [facility] [place] [facility] [address] [id number] [place] [address] Jan, [facility] [address] [id number] [place] [id number] Jan, [facility] [place] [facility] [address] [facility] [id number] [place] [address] Jan, [facility] [address] [facility] [id number] [place] [id number] Jan, [facility] [place] [facility] [address] [facility] [id number] [place] [address] Jan, [facility] [place] [facility] [address] [facility] [id number] [place] [address] Jan, [facility] [place] [facility] [address] [facility] [id number] [place] [address] Jan, [facility] [place] [facility] [address] [facility] [id number] [place] [address] Jan, [facility] [address] [id number], [place] [id number] Jan, [facility] [address] [id number] [place] [id number] Jan, [facility] [place] [facility] [address] [facility] [id number] [place] [address] Jan, [facility] [address] [id number], [place] [id number] Jan, [facility] [place] [facility] [address] [facility] [id number] [place] [address] Jan, [facility] [address] [id number] [place] [id number] Jan, [facility] [place] [facility] [address] [facility] [id number] [place] [address] Jan, [facility] [address] [facility] [id number], [place] [id number] Dec, [facility] [place] [facility] [address] [facility] [id number] [place] [address] Dec, [facility] [address] [id number] [place] [id number] Dec, [facility] [address] [id number] [place] [address] Dec, [facility] [address] [id number] [place] [id number] Dec, [facility] [address] [facility] [id number] [place] [address] Dec, [facility] [address] [id number] [place] [id number] Dec, [facility] [address] [facility] [id number] [place] [address] Dec, [facility] [address] [id number] [place] [id number] Nov, [facility] [address] [facility] [id number] [place] [address] Nov, [facility] [address] [facility] [id number] [place] [id number] Nov, [facility] [place] [facility] [address] [facility] [id number] [place] [address] Nov, [facility] [place] [facility] [address] [facility] [id number] [place] [address] Nov, [facility] [place] [facility] [address] [facility] [id number] [place] [address] Nov, [facility] [place] [facility] [address] [facility] [id number] [place] [address] Nov, [facility] [place] [facility] [address] [facility] [id number] [place] [address] Nov, [facility] [address] [facility] [id number] [place] [id number] Oct, [facility] [place] [facility] [address] [facility] [id number] [place] [address] Oct, [facility] [place] [facility] [address] [facility] [id number] [place] [address] Oct, [facility] [address] [id number][place] [id number] Oct, [facility] [place] [facility] [address] [facility] [id number] [place] [address] Oct, [facility] [address] [id number][place] [id number] Oct, [facility] [place] [facility] [address] [facility] [id number] [place] [address] Oct, [facility] [address] [id number][place] [id number] Aug, [facility] [address] [facility] [id number] [place] [address] Aug, [facility] [address] [id number][place] [id number] Jul, [facility] [address] [facility] [id number] [place] [address] Mar, [facility] [address] [id number][place] [id number] Mar, [facility] [address] [facility] [id number] [place] [address] Mar, [facility] [address] [id number][place] [id number] Jan, [facility] [address] [id number][place] [id number] Sep, [facility] [place] [facility] [address] [id number] [place] [address] Sep, [facility] [address] [id number] [place] [id number] May, [facility] [address] [id number] [place] [id number] Apr, [facility] [address] [id number] [place] [id number] Mar, [facility] [address] [id number][place] [id number] Mar, [facility] [address] [id number][place] [id number] February, [facility] [id number] [id number] Jan, [facility] [id number] [address] 15 Mar, 2011 [facility] [address] [id number] [place] [address] Sep, [facility] [id number] [address] Aug, [facility] [id number] [place] [address] Aug, [facility] [address] [id number] [place] [address] Aug, [facility] [id number] [address] Aug, [facility] [id number] [address] Aug, [facility] [id number] [address] Jul, [facility] [id number] [address] Apr, IMMUNIZATIONS No Known Immunizations SOCIAL HISTORY Never Assessed REASON FOR VISIT radiology results PLAN OF CARE VITAL SIGNS MEDICATIONS Unknown [...]
--- OUTSIDE RECORDS SUMMARY | 2019-04-19 10:28 | XMS REPORT ---
Author Author HILDA WOLF [facility] Address [address] [place] [address] Care Team Providers Care Geophysical Observer Name Role Phone HILDA WOLF Unavailable PROBLEMS Type Condition ICD9-CM Code ZXY40-AP Code Onset Dates Condition Status SNOMED Code Problem Herniated nucleus pulposus M51.9 Active 50546701 Problem OCD (obsessive compulsive disorder) F42 Active 581659435 Problem Anxiety F41.9 Active 58414087 Problem Acquired hypothyroidism E03.9 Active 680341377 Problem Moderate episode of recurrent major depressive disorder F33.1 Active 242165096 Problem Cervicalgia M54.2 Active 98261587 Problem Polyneuropathy G62.9 Active 55133811 Problem Plantar fasciitis M72.2 Active 295199723 ALLERGIES No Information ENCOUNTERS Encounter Location Date Diagnosis [facility] [id number] [place] [address] [id number] Jun, [facility] [address] [id number] Jun, Herniated nucleus pulposus M51.9 [facility] [id number] [place] [address] [id number] May, Herniated nucleus pulposus M51.9 [facility] [id number] [place] [address] [id number] Apr, Herniated nucleus pulposus M51.9 [facility] [id number] [place] [address] [id number] Apr, [facility] [address] [id number] Apr, Acquired hypothyroidism E03.9 [facility] [id number] [place] [address] [id number] Apr, Acquired hypothyroidism E03.9 [facility] [address] [id number] Apr, [facility] [address] [id number] [phone] Mar, Herniated nucleus pulposus M51.9 and Nodule, subcutaneous R22.9 [facility] [id number], [place] [id number] Mar, Herniated nucleus pulposus M51.9 [place] [id number] [place] [address] [id number] February, Herniated nucleus pulposus M51.9 ; Polyneuropathy G62.9 and Anxiety F41.9 [place] [id number] [place] [address] [id number] Jan, Herniated nucleus pulposus M51.9 ; Moderate episode of recurrent major depressive disorder F33.1 and Acquired hypothyroidism E03.9 [facility] [id number] [place] [address] [id number] Dec, Herniated nucleus pulposus M51.9 [place] [id number] [place] [address] [id number] Nov, Cervicalgia M54.2 and Herniated nucleus pulposus M51.9 [place] [id number] [place] [address] [id number] Oct, Herniated nucleus pulposus M51.9 and OCD (obsessive compulsive disorder) F42 [facility] [address] [id number] [id number] Oct, Herniated nucleus pulposus M51.[address] [place] [address] [id number] Aug, Acquired hypothyroidism E03.9 [address] [id number] [id number] Aug, Herniated nucleus pulposus M51.9 and Acquired hypothyroidism E03.9 [facility] [address] [id number] [address] Aug, [facility] [address] [id number][place] [id number] Jul, Herniated nucleus pulposus M51.9 ; OCD (obsessive compulsive disorder) F42 and Pain of right upper extremity M79.601 [facility] [id number] [place] [address] [id number] Jul, Anxiety F41.9 [place] [id number] [place] [address] [id number] Jul, [facility] [id number] [place] [address] [id number] Jun, OCD (obsessive compulsive disorder) F42 ; Herniated nucleus pulposus M51.9 and Acute cystitis with hematuria N30.01 [facility] [id number] [place] [address] [id number] Jun, Anxiety F41.[id number] [place] [address] [id number] Jun, [place] [id number] [place] [address] [phone] May, Acquired hypothyroidism E03.[id number] [place] [address] [id number] May, Polyneuropathy G62.9 ; OCD (obsessive compulsive disorder) F42 ; Herniated nucleus pulposus M51.9 ; Screening for lipid disorders Z13.220 ; Long-term use of high- risk medication Z79.899 and Major depressive disorder, recurrent, moderate F33.1 [facility] [address] [id number][place] [id number] May, Dental examination Z01.20 [facility] [id number] [place] [address] [id number] May, Herniated nucleus pulposus M51.[address] [place] [address] [id number] May, Herniated nucleus pulposus M51.9 and Anxiety F41.[address] [place] [address] [id number] Apr, Herniated nucleus pulposus M51.9 and Cervicalgia M54.[address] [place] [address] [id number] Apr, Moderate episode of recurrent major depressive disorder F33.1 [facility] [id number], [place] [id number] Apr, Herniated nucleus pulposus M51.9 [facility] [id number] [place] [address] [id number] Apr, Herniated nucleus pulposus M51.9 [facility] [id number] [place] [address] [id number] Mar, Moderate episode of recurrent major depressive disorder F33.1 [facility] [id number] [place] [address] [id number] Mar, Anxiety F41.9 [place] [id number] [place] [address] [id number] Mar, [facility] [id number] [place] [address] [id number] Mar, Herniated nucleus pulposus M51.9 and Cervicalgia M54.[id number] [place] [address] [id number] February, Acquired hypothyroidism E03.9 [place] [id number] [place] [address] [id number] February, Polyneuropathy G62.9 ; Herniated nucleus pulposus M51.9 ; Cervicalgia M54.2 and Acquired hypothyroidism E03.9 [facility] [id number] [place] [address] [id number] Jan, [address] [id number] [place] [address] [id number] Jan, Cervicalgia M54.2 and Moderate episode of recurrent major depressive disorder F33.1 [facility] [id number] [place] [address] [id number] Dec, Cervicalgia M54.2 and Herniated nucleus pulposus M51.[address] [place] [address] [phone] Nov, Lymph nodes enlarged R59.[address] [place] [address] [id number] Oct, Cervicalgia M54.2 [facility] [address] [id number] [address] Sep, Polyneuropathy G62.9 [facility] [id number] [place] [address] [id number] Sep, Cervicalgia M54.2 and Herniated nucleus pulposus M51.9 [facility] [id number] [place] [address] [id number] Aug, Lumbar radiculopathy M54.16 and Spinal stenosis at L4-L5 level M48.06 [facility] [id number] [place] [address] [id number] Aug, Cervicalgia M54.2 and Herniated nucleus pulposus M51.9 [facility] [id number] [place] [address] [id number] Jul, [facility] [id number] [place] [address] [id number] Jun, Cervicalgia M54.2 and Herniated nucleus pulposus M51.9 [facility] [id number] [place] [address] [id number] May, Plantar fasciitis M72.2 [facility] [id number] [place] [address] [id number] May, [facility] [id number] [place] [address] [id number] Apr, Screening for lipid disorders Z13.220 ; Long-term use of high-risk medication Z79.899 and Major depressive disorder, recurrent, moderate F33.1 [facility] [id number], [place] [id number] Apr, [facility] [id number], [place] [id number] Mar, Herniated nucleus pulposus M51.9 and Cervicalgia M54.2 [facility] [id number] [place] [address] [id number] Mar, Cervicalgia M54.2 and Herniated nucleus pulposus M51.9 [place] [id number] [place] [address] [id number] February, [place] [id number] [place] [address] [id number] February, Cervicalgia M54.2 and Herniated nucleus pulposus M51.9 [place] [id number] [place] [address] [id number] Dec, Syncope, unspecified syncope type R55 [place] [id number] [place] [address] [id number] Dec, Cervicalgia M54.2 ; Herniated nucleus pulposus M51.9 and Moderate episode of recurrent major depressive disorder F33.[address] [place] [id number] [place] [address] [id number] Dec, [address] [id number] Dec, Herniated nucleus pulposus M51.9 and Cervicalgia M54.[id number] [place] [address] [id number] Nov, [place] [address] [id number] Nov, Herniated nucleus pulposus M51.9 and OCD (obsessive compulsive disorder) F42 [place] [address] [id number] [place] [address] [id number] Sep, Displacement of intervertebral disc, site unspecified, without myelopathy 722.2 ; Cervicalgia 723.1 and Hypothyroidism, unspecified type E03.[address] [place] [address] [id number] Sep, [address] [id number] Jun, Displacement of intervertebral disc, site unspecified, without myelopathy 722.2 and Cervicalgia 723.[address] [id number] [place] [address] [id number] Mar, Displacement of intervertebral disc, site unspecified, without myelopathy 722.2 and Shingles 053.[id number] [place] [address] [id number] February, Shingles 053.[id number], [place] [id number] February, Displacement of intervertebral disc, site unspecified, without myelopathy 722.2 ; Tension headache 307.81 and Cervicalgia 723.1 [facility] [id number], [place] [id number] February, [facility] [id number], [place] [phone] February, [facility] [id number], [place] [id number] February, [facility] [id number] [place] [address] Jan, [facility] [place] [facility] [id number] [place] [address] Jan, [facility] [id number] [place] [address] [id number] Jan, [facility] [id number] [place] [phone] Jan, [facility] [id number] [place] [phone] Jan, [facility] [id number], [place] [phone] Dec, [facility] [address] [id number], [place] [address] Dec, [facility] [id number], [place] [id number] Dec, [facility] [address]00565100[place], [place] [address] Dec, [facility] [id number], [place] [id number] Nov, [facility] [address]00565100[place], [place] [address] Nov, [facility] [id number], [place] [id number] Oct, [facility] [address] [id number], [place] [address] Oct, [facility] [address] [id number] [place] [id number] Oct, [facility] [place] [facility] [address] [id number], [place] [address] Oct, [facility] [address] [id number], [place] [id number] Oct, [facility] [address] [id number], [place] [id number] Oct, [facility] [address] [facility] [id number], [place] [address] Oct, [facility] [address] [facility] [id number], [place] [address] Oct, [facility] [address] [facility] [id number], [place] [phone] Oct, [facility] [place] [facility] [address] [facility] [id number], [place] [address] Oct, [facility] [address] [facility] [id number][place] [id number] Oct, [facility] [place] [facility] [address] [facility] [id number], [place] [address] Oct, [facility] [address] [facility] [id number], [place] [id number] Sep, [facility] [place] [facility] [address] [facility] [id number], [place] [address] Sep, [facility] [address] [facility] [id number], [place] [id number] Aug, [facility] [place] [facility] [address] [facility] [id number], [place] [address] Aug, [facility] [place] [facility] [address] [facility] [facility] [id number], [place] [address] Aug, [facility] [address] [facility] [id number][place] [id number] Aug, [facility] [address] [id number] [place] [id number] Aug, [facility] [place] [facility] [address] [facility] [facility] [id number] [place] [address] Aug, [facility] [address] [id number] [place] [id number] Jul, [facility] [place] [facility] [address] [facility] [facility] [id number], [place] [address] Jul, [facility] [address] [id number], [place] [id number] Jul, [facility] [place] [facility] [address] [facility] [facility] [id number], [place] [address] Jul, [facility] [place] [facility] [address] [facility] [facility] [id number], [place] [address] Apr, [facility] [address] [facility] [id number], [place] [id number] Apr, [facility] [place] [facility] [address] [facility] [facility] [id number], [place] [address] Apr, [facility] [address] [facility] [id number][place] 9608[address]858 Apr, [facility] [place] [facility] [address] [facility] [facility] [id number], [place] [address] Apr, [facility] [address] [facility] [id number], [place] [id number] Mar, [facility] [place] [facility] [address] [facility] [id number], [place] [address] Mar, [facility] [address] [facility] [id number], [place] [id number] Mar, [facility] [place] [facility] [address] [facility] [facility] [id number], [place] [address] Mar, [facility] [address] [id number], [place] [id number] February, [facility] [place] [facility] [address] [facility] [facility] [id number], [place] [address] February, [facility] [place] [facility] [address] [id number] [place] [address] February, [facility] [address] [facility] [id number] [place] 78[address] February, [facility] [place] [facility] [address] [id number] [place] [address] February, [facility] [address] [facility] [id number] [place] [id number] February, [facility] [place] [facility] [address] [id number] [place] [address] February, [facility] [place] [facility] [address] [id number] [place] [address] Jan, [facility] [place] [facility] [address] [id number] [place] [address] Jan, [facility] [place] [facility] [address] [id number] [place] [address] Jan, [facility] [address] [facility] [id number] [place] [id number] Jan, [facility] [place] [facility] [address] [id number] [place] [address] Jan, [facility] [address] [id number] [place] [address]697[address] Jan, [facility] [place] [facility] [address] [id number] [place] [address] Jan, [facility] [address] [facility] [id number] [place] [id number] Jan, [facility] [place] [facility] [address] [id number] [place] [address] Jan, [facility] [place] [facility] [address] [facility] [id number] [place] [address] Jan, [facility] [place] [facility] [address] [id number] [place] [address] Jan, [facility] [place] [facility] [address] [id number] [place] [address] Jan, [facility] [address] [id number] [place] [id number] Jan, [facility] [address] [id number] [place] 588884707 Jan, [facility] [place] [facility] [address] [facility] [facility] [id number] [place] [address] Jan, [facility] [address] [id number] [place] [address]34[address] Jan, [facility] [place] [facility] [address] [id number] [place] [address] Jan, [facility] [address] [id number] [place] [id number] Jan, [facility] [place] [facility] [address] [facility] [id number] [place] [address] Jan, [facility] [address] [id number], [place] [id number] Dec, [facility] [place] [facility] [address] [facility] [facility] [id number] [place] [address] Dec, [facility] [address] [facility] [id number] [place] [address]8612[address] Dec, [facility] [place] [facility] [address] [id number], [place] [address] Dec, [facility] [address] [id number] [place] [address] Dec, [facility] [place] [facility] [address] [facility] [facility] [id number], [place] [address] Dec, [facility] [address] [id number] [place] [id number] Dec, [facility] [place] [facility] [address] [facility] [facility] [id number] [place] [address] Dec, [facility] [address] [id number] [place] [id number] Nov, [facility] [place] [facility] [address] [facility] [facility] [id number], [place] [address] Nov, [facility] [address] [facility] [id number], [place] 264842431 Nov, [facility] [place] [facility] [address] [facility] [facility] [id number], [place] [address] Nov, [facility] [place] [facility] [address] [facility] [facility] [id number], [place] [address] Nov, [facility] [place] [facility] [address] [facility] [facility] [id number] [place] [address] Nov, [facility] [place] [facility] [address] [facility] [facility] [id number] [place] [address] Nov, [facility] [place] [facility] [address] [facility] [facility] [id number], [place] [address] Nov, [facility] [id number], [place] [id number] Oct, [facility] [place] [facility] [address] [facility] [facility] [id number], [place] [address] Oct, [facility] [place] [facility] [address]00565100[place], [place] [address] Oct, [facility] [address] [id number], [place] [address] Oct, [facility] [place] [facility] [address] [facility] [facility] [id number][place] [address] Oct, [facility] [address] [facility] [id number], [place] 6164[address]506 Oct, [facility] [place] [facility] [address] [facility] [facility] [id number][place] [address] Oct, [facility] [address] [facility] [id number][place] [id number] Aug, [facility] [address] [facility] [id number], [place] [address] Aug, [facility] [address] [facility] [id number][place] [id number] Jul, [facility] [address] [facility] [id number], [place] [address] Mar, [facility] [address] [id number] [place] [id number] Mar, [facility] [address] [id number] [address] Mar, [facility] [address] [id number] [place] [id number] Jan, [facility] [address] [id number] [place] [id number] Sep, [facility] [address] [facility] [id number] [place] [address] Sep, [facility] [address] [id number] [place] [id number] May, [facility] [address] [id number] [place] [id number] Apr, [facility] [address] [id number] [place] [id number] Mar, [facility] [address] [id number] [place] [id number] Mar, [facility] [address] [id number] [place] [id number] February, [facility] [address] [id number] [place] [id number] Jan, [facility] [id number], [place] [address] Mar, [facility] [address] [facility] [id number], [place] [address] Sep, [facility] [id number] [place] [address] Aug, [facility] [id number], [place] [address] Aug, [facility] [id number] [place] [address] Aug, [facility] [address] [facility] [id number] [place] [address] Aug, [facility] [address] [facility] [id number], [place] [address] Aug, [facility] [address] [facility] [id number], [place] [address] Jul, [facility] [address] [facility] [id number], [place] [address] Apr, IMMUNIZATIONS No Known Immunizations SOCIAL HISTORY Never Assessed REASON FOR VISIT Refill request PLAN OF CARE VITAL SIGNS MEDICATIONS Medication Instructions Dosage Frequency Start Date End Date Duration Status Omeprazole 20 mg Orally Once a day 1 capsules 24h Aug, Active Promethazine HCl 25 MG Orally every 12 hrs 1 tablet as needed 12h 10 Jun, 2018 Active RESULTS No Results PROCEDURES No Known [...]
--- OUTSIDE RECORDS SUMMARY | 2019-04-19 10:28 | XMS REPORT ---
Author Author BRANDEN ARTEAGA [facility] Address [address] [place] [address] Care Team Providers Care Match Up Worker Name Role Phone BRANDEN ARTEAGA Unavailable PROBLEMS Type Condition ICD9-CM Code KGH64-WG Code Onset Dates Condition Status SNOMED Code Problem Herniated nucleus pulposus M51.9 Active 05682348 Problem OCD (obsessive compulsive disorder) F42 Active 355440457 Problem Anxiety F41.9 Active 78791901 Problem Acquired hypothyroidism E03.9 Active 523507974 Problem Moderate episode of recurrent major depressive disorder F33.1 Active 660354716 Problem Cervicalgia M54.2 Active 03348533 Problem Polyneuropathy G62.9 Active 13695422 Problem Plantar fasciitis M72.2 Active 869482329 ALLERGIES No Information ENCOUNTERS Encounter Location Date Diagnosis [facility] [id number] [place] [address] [id number] Jun, [facility] [address] [id number] Jun, Herniated nucleus pulposus M51.9 [facility] [id number] [place] [address] [id number] May, Herniated nucleus pulposus M51.9 [facility] [id number] [place] [address] [id number] Apr, Herniated nucleus pulposus M51.9 [facility] [id number] [place] [address] [id number] Apr, [facility] [address] [id number] Apr, Acquired hypothyroidism E03.9 [facility] [id number] [place] [address] [id number] Apr, Acquired hypothyroidism E03.9 [facility] [id number] Apr, [facility] [id number] [place] [address] [id number] Mar, Herniated nucleus pulposus M51.9 and Nodule, subcutaneous R22.9 [facility] [id number] [id number] Mar, Herniated nucleus pulposus M51.9 [id number] [place] [address] [id number] February, Herniated nucleus pulposus M51.9 ; Polyneuropathy G62.9 and Anxiety F41.9 [id number] [place] [address] [id number] Jan, Herniated nucleus pulposus M51.9 ; Moderate episode of recurrent major depressive disorder F33.1 and Acquired hypothyroidism E03.9 [id number] [place] [address] [id number] Dec, Herniated nucleus pulposus M51.9 [id number] [place] [address] [id number] Nov, Cervicalgia M54.2 and Herniated nucleus pulposus M51.9 [id number] [place] [address] [id number] Oct, Herniated nucleus pulposus M51.9 and OCD (obsessive compulsive disorder) F42 [address] [place] [address] [id number] Oct, Herniated nucleus pulposus M51.9 [id number] [place] [address] [id number] Aug, Acquired hypothyroidism E03.9 [address] [place] [address] [id number] Aug, Herniated nucleus pulposus M51.9 and Acquired hypothyroidism E03.9 [facility] [address] [id number] [address] Aug, [address] [place] [address] [id number] Jul, Herniated nucleus pulposus M51.9 ; OCD (obsessive compulsive disorder) F42 and Pain of right upper extremity M79.601 [facility] [id number] [place] [address] [id number] Jul, Anxiety F41.9 [facility] [id number] [place] [address] [id number] Jul, [facility] [id number] [place] [address] [id number] Jun, OCD (obsessive compulsive disorder) F42 ; Herniated nucleus pulposus M51.9 and Acute cystitis with hematuria N30.01 [facility] [id number] [place] [address] [id number] Jun, Anxiety F41.9 [address] [id number] [place] [address] [id number] Jun, [place] [id number] [place] [address] [id number] May, Acquired hypothyroidism E03.9 [id number] [place] [address] [id number] May, Polyneuropathy G62.9 ; OCD (obsessive compulsive disorder) F42 ; Herniated nucleus pulposus M51.9 ; Screening for lipid disorders Z13.220 ; Long-term use of high- risk medication Z79.899 and Major depressive disorder, recurrent, moderate F33.1 [facility] [address] [id number] May, Dental examination Z01.20 [facility] [id number] [place] [address] [id number] May, Herniated nucleus pulposus M51.9 [address] [place] [address] [id number] May, Herniated nucleus pulposus M51.9 and Anxiety F41.9 [id number] [place] [address] [id number] Apr, Herniated nucleus pulposus M51.9 and Cervicalgia M54.2 [id number] [place] [address] [id number] Apr, Moderate episode of recurrent major depressive disorder F33.1 [facility] [id number] [place] [address] [id number] Apr, Herniated nucleus pulposus M51.9 [facility] [address] [id number] [place] [address] [id number] Apr, Herniated nucleus pulposus M51.9 [place] [id number] [place] [address] [id number] Mar, Moderate episode of recurrent major depressive disorder F33.1 [facility] [id number] [place] [address] [id number] Mar, Anxiety F41.9 [place] [id number] [place] [address] [id number] Mar, [facility] [id number] [place] [address] [id number] Mar, Herniated nucleus pulposus M51.9 and Cervicalgia M54.2 [place] [id number] [place] [address] [id number] February, Acquired hypothyroidism E03.9 [place] [id number] [place] [address] [id number] February, Polyneuropathy G62.9 ; Herniated nucleus pulposus M51.9 ; Cervicalgia M54.2 and Acquired hypothyroidism E03.9 [facility] [id number] [place] [address] [id number] Jan, [place] [id number] [place] [address] [id number] Jan, Cervicalgia M54.2 and Moderate episode of recurrent major depressive disorder F33.1 [place] [id number] [place] [address] [id number] Dec, Cervicalgia M54.2 and Herniated nucleus pulposus M51.9 [facility] [id number] [place] [address] [id number] Nov, Lymph nodes enlarged R59.9 [place] [id number] [place] [address] [id number] Oct, Cervicalgia M54.2 [facility] [address]005[address] [address] Sep, Polyneuropathy G62.9 [facility] [id number] [place] [address] [id number] Sep, Cervicalgia M54.2 and Herniated nucleus pulposus M51.9 [facility] [address] [id number] [place] [address] [id number] Aug, Lumbar radiculopathy M54.16 and Spinal stenosis at L4-L5 level M48.06 [facility] [id number] [place] [address] [id number] Aug, Cervicalgia M54.2 and Herniated nucleus pulposus M51.9 [facility] [id number] [place] [address] [id number] Jul, [facility] [address] [id number] [place] [address] [id number] Jun, Cervicalgia M54.2 and Herniated nucleus pulposus M51.9 [facility] [id number] [place] [address] [id number] May, Plantar fasciitis M72.2 [facility] [id number] [place] [address] [id number] May, [facility] [id number] [place] [address] [id number] Apr, Screening for lipid disorders Z13.220 ; Long-term use of high-risk medication Z79.899 and Major depressive disorder, recurrent, moderate F33.1 [facility] [address] [id number] [phone] Apr, [facility] [id number] [place] [address] [id number] Mar, Herniated nucleus pulposus M51.9 and Cervicalgia M54.2 [facility] [id number] [place] [address] [id number] Mar, Cervicalgia M54.2 and Herniated nucleus pulposus M51.9 [facility] [id number] [place] [address] [id number] February, [facility] [id number][place] [id number] February, Cervicalgia M54.2 and Herniated nucleus pulposus M51.9 [place] [id number] [place] [address] [id number] Dec, Syncope, unspecified syncope type R55 [id number] [place] [address] [id number] Dec, Cervicalgia M54.2 ; Herniated nucleus pulposus M51.9 and Moderate episode of recurrent major depressive disorder F33.1 [id number] [place] [address] [id number] Dec, [id number] [place] [address] [id number] Dec, Herniated nucleus pulposus M51.9 and Cervicalgia M54.2 [id number] [place] [address] [id number] Nov, [id number] [place] [address] [id number] Nov, Herniated nucleus pulposus M51.9 and OCD (obsessive compulsive disorder) F42 [id number] [place] [address] [id number] Sep, Displacement of intervertebral disc, site unspecified, without myelopathy 722.2 ; Cervicalgia 723.1 and Hypothyroidism, unspecified type E03.9 [address] [place] [address] [id number] Sep, [id number] [place] [address] [id number] Jun, Displacement of intervertebral disc, site unspecified, without myelopathy 722.2 and Cervicalgia 723.1 [id number] [place] [address] [id number] Mar, Displacement of intervertebral disc, site unspecified, without myelopathy 722.2 and Shingles 053.9 [id number] [place] [address] [id number] February, Shingles 053.9 [facility] [id number][place] [id number] February, Displacement of intervertebral disc, site unspecified, without myelopathy 722.2 ; Tension headache 307.81 and Cervicalgia 723.1 [facility] [id number], [place] [id number] February, [facility] [id number], [place] [id number] February, [facility] [id number], [place] [id number] February, [facility] [id number] [place] [address] Jan, [facility] [place] [facility] [id number] [place] [address] Jan, [facility] [id number], [place] [phone] Jan, [facility] [place] [id number] [place] [address] Jan, [facility] [place] [id number] [place] [address] Jan, [facility] [id number], [place] [id number] Dec, [facility] [address] [address] Dec, [facility] [id number], [place] [id number] Dec, [facility] [place] [facility] [address]100[place] [address] Dec, [facility] [id number], [place] [id number] Nov, [facility] [place] [facility] [address] [address] Nov, [facility] [id number], [place] [id number] Oct, [facility] [place] [facility] [address] [id number] [address] Oct, [facility] [address] [id number] [phone] Oct, [facility] [place] [facility] [address] [facility] [id number] [place] [address] Oct, [facility] [address] [id number] [id number] Oct, [facility] [address] [id number], [place] [id number] Oct, [facility] [place] [facility] [address] [facility] [id number] [place] [address] Oct, [facility] [place] [facility] [address] [facility] [id number] [place] [address] Oct, [facility] [address] [facility] [id number][place] [id number] Oct, [facility] [place] [facility] [address] [facility] [id number] [address] Oct, [facility] [address] [facility] [id number][place] [id number] Oct, [facility] [place] [facility] [address] [id number] [address] Oct, [facility] [address] [facility] [id number] [id number] Sep, [facility] [place] [facility] [address] [facility] [id number] [address] Sep, [facility] [address] [facility] [id number], [place] [id number] Aug, [facility] [place] [facility] [address] [facility] [id number] [address] Aug, [facility] [place] [facility] [address] [facility] [id number] [address] Aug, [facility] [address] [facility] [id number], [place] [id number] Aug, [facility] [address] [id number] [place] [id number] Aug, [facility] [place] [facility] [address] [facility] [id number] [place] [address] Aug, [facility] [address] [id number] [place] [id number] Jul, [facility] [place] [facility] [address] [facility] [id number] [place] [address] Jul, [facility] [address] [id number] [place] [id number] Jul, [facility] [place] [facility] [address] [facility] [id number] [place] [address] Jul, [facility] [place] [facility] [address] [id number] [place] [address] Apr, [facility] [address] [id number], [place] [id number] Apr, [facility] [place] [facility] [address] [facility] [id number] [address] Apr, [facility] [address] [id number] [place] [id number] Apr, [facility] [place] [facility] [address] [facility] [id number] [place] [address] Apr, [facility] [address] [id number] [place] [id number] Mar, [facility] [place] [facility] [address] [facility] [id number] [place] [address] Mar, [facility] [address] [id number] [place] [id number] Mar, [facility] [place] [facility] [address] [facility] [id number] [address] Mar, [facility] [address] [id number] [place] [id number] February, [facility] [place] [facility] [address] [facility] [id number] [address] February, [facility] [place] [facility] [address] [id number] [place] [address] February, [facility] [address] [facility] [id number] [place] [id number] February, [facility] [place] [facility] [address] [id number] [place] [address] February, [facility] [address] [facility] [id number] [place] [id number] February, [facility] [place] [facility] [address] [id number] [place] [address] February, [facility] [place] [facility] [address] [facility] [id number] [place] [address] Jan, [facility] [place] [facility] [id number] [place] [address] Jan, [facility] [place] [facility] [address] [id number] [place] [address] Jan, [facility] [address] [facility] [id number] [place] [id number] Jan, [facility] [place] [facility] [address] [facility] [id number] [place] [address] Jan, [facility] [address] [facility] [id number] [place] [id number] Jan, [facility] [place] [facility] [address] [facility] [id number] [place] [address] Jan, [facility] [address] [facility] [id number] [place] [id number] Jan, [facility] [place] [facility] [address] [facility] [id number] [place] [address] Jan, [facility] [place] [facility] [address] [facility] [id number] [place] [address] Jan, [facility] [place] [facility] [address] [id number] [place] [address] Jan, [facility] [address] [id number] [place] [address] Jan, [facility] [address] [id number] [place] [id number] Jan, [facility] [address] [id number] [place] [id number] Jan, [facility] [place] [facility] [address] [facility] [id number] [place] [address] Jan, [facility] [address] [id number] [place] [id number] Jan, [facility] [place] [facility] [address] [facility] [id number] [place] [address] Jan, [facility] [address] [facility] [id number] [place] [id number] Jan, [facility] [address] [facility] [id number] [place] [address] Jan, [facility] [address] [facility] [id number] [place] [id number] Dec, [facility] [address] [facility] [id number] [place] [address] Dec, [facility] [address] [facility] [id number] [place] [id number] Dec, [facility] [place] [facility] [address] [facility] [id number] [place] [address] Dec, [facility] [address] [facility] [id number], [place] [id number] Dec, [facility] [place] [facility] [address] [facility] [id number] [place] [address] Dec, [facility] [address] [facility] [id number] [place] [id number] Dec, [facility] [place] [facility] [address] [facility] [id number] [address] Dec, [facility] [address] [facility] [id number] [place] [id number] Nov, [facility] [address] [id number] [address] Nov, [facility] [address] [facility] [id number], [place] [id number] Nov, [facility] [place] [facility] [address] [id number] [place] [address] Nov, [facility] [place] [facility] [address] [facility] [id number] [place] [address] Nov, [facility] [place] [facility] [address] [facility] [id number] [place] [address] Nov, [facility] [place] [facility] [address] [facility] [id number] [place] [address] Nov, [facility] [place] [facility] [address] [id number] [place] [address] Nov, [facility] [address] [id number] [id number] Oct, [facility] [place] [facility] [address] [facility] [id number] [address] Oct, [facility] [place] [facility] [address] [id number] [address] Oct, [facility] [address] [id number] [id number] Oct, [facility] [place] [facility] [address] [facility] [id number] [place] [address] Oct, [facility] [address] [facility] [id number] [id number] Oct, [facility] [place] [facility] [address] [facility] [id number] [place] [address] Oct, [facility] [address] [facility] [id number], [place] [id number] Aug, [facility] [place] [facility] [address] [facility] [id number] [place] [address] Aug, [facility] [address] [id number] [place] [id number] Jul, [facility] [place] [facility] [address] [facility] [id number] [place] [address] Mar, [facility] [address] [id number] [place] [id number] Mar, [facility] [place] [facility] [address]65[address] [address] Mar, [facility] [address] [id number] [place] [id number] Jan, [facility] [address] [id number] [place] [id number] Sep, [facility] [address] [id number] [address] Sep, [facility] [address] [id number] [place] [id number] May, [facility] [address] [id number] [place] [id number] Apr, [facility] [address] [id number] [place] [id number] Mar, [facility] [address] [id number] [place] [id number] Mar, [facility] [address] [id number] [place] [id number] February, [facility] [address] [id number] [place] [id number] Jan, [facility] [id number] [place] [address] Mar, [facility] [id number] [place] [address] Sep, [facility] [id number] [place] [address] Aug, [facility] [id number] [place] [address] Aug, [facility] [address] [id number] [place] [address] Aug, [facility] [address] [facility] [id number] [place] [address] Aug, [facility] [address] [facility] [id number] [place] [address] Aug, [facility] [address] [facility] [id number] [place] [address] Jul, [facility] [address] [facility] [id number] [place] [address] Apr, IMMUNIZATIONS No Known Immunizations SOCIAL HISTORY Never Assessed REASON FOR VISIT Controlled Med Refill PLAN OF CARE VITAL SIGNS MEDICATIONS Medication Instructions Dosage Frequency Start Date End Date Duration Status Hydrocodone-Acetaminophen 5-325 MG Orally 3 times a day must last 28 days 1- 2 tablet as needed May, 0 days Active RESULTS No Results PROCEDURES No [...]
--- OUTSIDE RECORDS SUMMARY | 2019-04-19 10:29 | XMS REPORT ---
Author Author HILDA WOLF [facility] Address [address] [place] [address] Care Team Providers Care [employer] Tech Name Role Phone HILDA WOLF Unavailable PROBLEMS Type Condition ICD9-CM Code XCB70-EC Code Onset Dates Condition Status SNOMED Code Problem Herniated nucleus pulposus M51.9 Active 44978446 Problem OCD (obsessive compulsive disorder) F42 Active 416972487 Problem Anxiety F41.9 Active 00831249 Problem Acquired hypothyroidism E03.9 Active 399757133 Problem Moderate episode of recurrent major depressive disorder F33.1 Active 836900755 Problem Cervicalgia M54.2 Active 42932190 Problem Polyneuropathy G62.9 Active 10401365 Problem Plantar fasciitis M72.2 Active 710337475 ALLERGIES Substance Reaction Event Type Date Status Nortriptyline HCl headache, night fu Drug Allergy Mar, Active Lamictal hives Drug Allergy Mar, Active Clindamycin HCl hives Drug Allergy Mar, Active Latex hives Non Drug Allergy Mar, Active ENCOUNTERS Encounter Location Date Diagnosis [facility] [id number] [place] [address] [id number] Jun, [place] [id number] [place] [address] [id number] Jun, [facility] [id number] [place] [address] [id number] Jun, Herniated nucleus pulposus M51.9 [facility] [id number] [place] [address] [id number] May, Herniated nucleus pulposus M51.9 [facility] [id number] [place] [address] [id number] Apr, Herniated nucleus pulposus M51.9 [place] [id number], [place] [id number] Apr, [facility] [id number] [place] [address] [id number] Apr, Acquired hypothyroidism E03.9 [place] [address] [place] [id number] [place] [address] [id number] Apr, Acquired hypothyroidism E03.9 [place] [address] [place] [id number] [place] [address] [id number] Apr, [place] [address] [place] [id number] [place] [address] [id number] Mar, Herniated nucleus pulposus M51.9 and Nodule, subcutaneous R22.9 [place] [address] [place] [id number] [place] [address] [id number] Mar, Herniated nucleus pulposus M51.9 [place] [address] [id number] February, Herniated nucleus pulposus M51.9 ; Polyneuropathy G62.9 and Anxiety F41.[address] [id number] Jan, Herniated nucleus pulposus M51.9 ; Moderate episode of recurrent major depressive disorder F33.1 and Acquired hypothyroidism E03.9 [place] [address] [place] [id number] [place] [address] [id number] Dec, Herniated nucleus pulposus M51.9 [place] [address] [place] [id number] [place] [address] [id number] Nov, Cervicalgia M54.2 and Herniated nucleus pulposus M51.9 [place] [address] [place] [id number] [place] [address] [id number] Oct, Herniated nucleus pulposus M51.9 and OCD (obsessive compulsive disorder) F42 [place] [id number] [place] [address] [id number] Oct, Herniated nucleus pulposus M51.9 [place] [address] [place] [id number] [place] [address] [id number] Aug, Acquired hypothyroidism E03.9 [place] [id number] [place] [address] [id number] Aug, Herniated nucleus pulposus M51.9 and Acquired hypothyroidism E03.9 [facility] [place] [address]005[address], [place] [address] Aug, [facility] [address] [place] [address] [id number] [place] [address] [id number] Jul, Herniated nucleus pulposus M51.9 ; OCD (obsessive compulsive disorder) F42 and Pain of right upper extremity M79.601 [facility] [address] [place] [id number] [place] [address] [id number] Jul, Anxiety F41.9 [place] [id number] [place] [address] [id number] Jul, [place] [id number] [place] [address] [id number] Jun, OCD (obsessive compulsive disorder) F42 ; Herniated nucleus pulposus M51.9 and Acute cystitis with hematuria N30.01 [facility] [address] [place] [id number] [place] [address] [id number] Jun, Anxiety F41.9 [facility] [id number] [place] [address] [id number] Jun, [place] [address] [place] [id number] [place] [address] [id number] May, Acquired hypothyroidism E03.9 [facility] [address] [id number] [place] [address] [id number] May, Polyneuropathy G62.9 ; OCD (obsessive compulsive disorder) F42 ; Herniated nucleus pulposus M51.9 ; Screening for lipid disorders Z13.220 ; Long-term use of high- risk medication Z79.899 and Major depressive disorder, recurrent, moderate F33.1 [facility] [address] [id number] [id number] May, Dental examination Z01.20 [facility] [id number] [place] [address] [id number] May, Herniated nucleus pulposus M51.[id number] [place] [address] [id number] May, Herniated nucleus pulposus M51.9 and Anxiety F41.9 [facility] [id number] [place] [address] [id number] Apr, Herniated nucleus pulposus M51.9 and Cervicalgia M54.2 [facility] [address] [place] [id number] [place] [address] [id number] Apr, Moderate episode of recurrent major depressive disorder F33.1 [facility] [id number] [place] [address] [id number] Apr, Herniated nucleus pulposus M51.9 [facility] [id number] [place] [address] [id number] Apr, Herniated nucleus pulposus M51.9 [place] [address] [place] [id number] [place] [address] [id number] Mar, Moderate episode of recurrent major depressive disorder F33.1 [place] [address] [place] [id number] [place] [address] [id number] Mar, Anxiety F41.9 [facility] [address] [place] [id number] [place] [address] [id number] Mar, [facility] [address] [place] [id number] [place] [address] [id number] Mar, Herniated nucleus pulposus M51.9 and Cervicalgia M54.2 [facility] [id number] [place] [address] [id number] February, Acquired hypothyroidism E03.9 [place] [id number] [place] [address] [id number] February, Polyneuropathy G62.9 ; Herniated nucleus pulposus M51.9 ; Cervicalgia M54.2 and Acquired hypothyroidism E03.9 [facility] [id number] [place] [address] [id number] Jan, [facility] [address] [place] [id number] [place] [address] [id number] Jan, Cervicalgia M54.2 and Moderate episode of recurrent major depressive disorder F33.1 [facility] [id number] [place] [address] [id number] Dec, Cervicalgia M54.2 and Herniated nucleus pulposus M51.9 [facility] [id number], [place] 9570[address] Nov, Lymph nodes enlarged R59.9 [facility] [address] [place] [id number] [place] [address] [id number] Oct, Cervicalgia M54.2 [facility] [place] [address], [place] [address] Sep, Polyneuropathy G62.9 [facility] [address] [place] [id number] [place] [address] [id number] Sep, Cervicalgia M54.2 and Herniated nucleus pulposus M51.9 [place] [address] [place] [id number] [place] [address] [id number] Aug, Lumbar radiculopathy M54.16 and Spinal stenosis at L4-L5 level M48.06 [facility] [address] [place] [id number] [place] [address] [id number] Aug, Cervicalgia M54.2 and Herniated nucleus pulposus M51.9 [facility] [id number] [place] [address] [id number] Jul, [place] [address] [place] [id number] [place] [address] [id number] Jun, Cervicalgia M54.2 and Herniated nucleus pulposus M51.9 [place] [id number] [place] [address] [id number] May, Plantar fasciitis M72.2 [place] [id number] [place] [address] [id number] May, [place] [id number] [place] [address] [id number] Apr, Screening for lipid disorders Z13.220 ; Long-term use of high-risk medication Z79.899 and Major depressive disorder, recurrent, moderate F33.1 [facility] [id number], [place] [id number] Apr, [address] [place] [address] [id number] Mar, Herniated nucleus pulposus M51.9 and Cervicalgia M54.2 [facility] [id number], [place] [id number] Mar, Cervicalgia M54.2 and Herniated nucleus pulposus M51.9 [facility] [id number] [place] [address] [id number] February, [place] [address] [place] [id number] [place] [address] [id number] February, Cervicalgia M54.2 and Herniated nucleus pulposus M51.9 [facility] [address] [place] [id number] [place] [address] [id number] Dec, Syncope, unspecified syncope type R55 [address] [id number] Dec, Cervicalgia M54.2 ; Herniated nucleus pulposus M51.9 and Moderate episode of recurrent major depressive disorder F33.1 [place] [id number] [place] [address] [id number] Dec, [place] [id number] [place] [address] [id number] Dec, Herniated nucleus pulposus M51.9 and Cervicalgia M54.2 [place] [address] [place] [id number] [place] [address] [id number] Nov, [place] [address] [place] [id number] [place] [address] [id number] Nov, Herniated nucleus pulposus M51.9 and OCD (obsessive compulsive disorder) F42 [place] [address] [place] [id number] [place] [address] [id number] Sep, Displacement of intervertebral disc, site unspecified, without myelopathy 722.2 ; Cervicalgia 723.1 and Hypothyroidism, unspecified type E03.9 [place] [id number] [place] [address] [id number] Sep, [facility] [address] [place] [id number] [place] [address] [id number] Jun, Displacement of intervertebral disc, site unspecified, without myelopathy 722.2 and Cervicalgia 723.1 [facility] [address] [id number], [place] [id number] Mar, Displacement of intervertebral disc, site unspecified, without myelopathy 722.2 and Shingles 053.9 [facility] [address] [id number], [place] [id number] February, Shingles 053.9 [facility] [address] [place] [id number], [place] [id number] February, Displacement of intervertebral disc, site unspecified, without myelopathy 722.2 ; Tension headache 307.81 and Cervicalgia 723.1 [facility] [address] [id number], [place] [id number] February, [facility] [id number] [place] [address] [id number] February, [facility] [id number], [place] [id number] February, [facility] [address] [place] [id number] [place] [address] Jan, [facility] [address] [place] [id number] [place] [address] Jan, [facility] [id number], [place] [id number] Jan, [facility] [address], [place] [address] Jan, [facility] [place] [id number] [place] [address] Jan, [facility] [id number], [place] [id number] Dec, [facility] [address] [place] [id number] [place] [address] Dec, [facility] [id number], [place] [id number] Dec, [facility] [place] [address], [place] [address] Dec, [facility] [address] [place] [id number] [id number] Nov, [facility] [place] [address] [id number], [place] [address] Nov, [facility] [address] [facility] [id number], [place] [id number] Oct, [facility] [place] [facility] [address] [facility] [id number], [place] [address] Oct, [facility] [address] [id number], [place] [id number] Oct, [facility] [place] [address] [facility] [id number], [place] [address] Oct, [facility] [address] [id number], [place] [id number] Oct, [facility] [address] [id number], [place] [id number] Oct, [facility] [place] [facility] [address], [place] [address] Oct, [facility] [place] [address] [facility] [id number], [place] [address] Oct, [facility] [address] [facility] [id number], [place] [id number] Oct, [facility] [place] [facility] [address], [place] [address] Oct, [facility] [address] [facility] [id number], [place] 264447082 Oct, [facility] [place] [facility] [address] [facility] [id number], [place] [address] Oct, [facility] [address] [id number], [place] [id number] Sep, [facility] [place] [facility] [address] [facility] [id number], [place] [address] Sep, [facility] [address] [id number], [place] [id number] Aug, [facility] [place] [facility] [address] [facility] [id number], [place] [address] Aug, [facility] [place] [facility] [address] [facility] [id number] [place] [address] Aug, [facility] [address] [id number], [place] 326613336 Aug, [facility] [address] [facility] [id number] [place] [id number] Aug, [facility] [place] [facility] [address] [facility] [id number], [place] [address] Aug, [facility] [address] [facility] [id number] [place] [id number] Jul, [facility] [place] [facility] [address] [facility] [id number], [place] [address] Jul, [facility] [address] [facility] [id number], [place] 401595405 Jul, [facility] [place] [facility] [address] [facility] [id number], [place] [address] Jul, [facility] [place] [facility] [address] [facility] [id number], [place] [address] Apr, [facility] [address] [facility] [id number], [place] 030729991 Apr, [facility] [place] [facility] [address] [facility] [id number], [place] [address] Apr, [facility] [address] [facility] [id number], [place] [id number] Apr, [facility] [place] [facility] [address] [facility] [id number], [place] [address] Apr, [facility] [address] [facility] [id number], [place] 289794174 Mar, [facility] [place] [facility] [address] [facility] [id number], [place] [address] Mar, [facility] [address] [facility] [id number], [place] 433624589 Mar, [facility] [place] [facility] [address] [id number], [place] [address] Mar, [facility] [address] [facility] [id number] [place] [id number] February, [facility] [place] [facility] [address] [facility] [id number] [place] [address] February, [facility] [place] [facility] [address] [facility] [id number] [place] [address] February, [facility] [address] [facility] [id number], [place] 925725582 February, [facility] [place] [facility] [address] [facility] [id number] [place] [address] February, [facility] [address] [facility] [id number], [place] [id number] February, [facility] [place] [facility] [address], [place] [address] February, [facility] [place] [facility] [address] [facility] [id number] [place] [address] Jan, [facility] [place] [facility] [id number] [place] [address] Jan, [facility] [place] [facility] [address] [id number], [place] [address] Jan, [facility] [address] [facility] [id number], [place] 506838968 Jan, [facility] [place] [facility] [address] [facility] [id number], [place] [address] Jan, [facility] [address] [facility] [id number] [place] 7384628[address] Jan, [facility] [place] [facility] [address] [facility] [id number], [place] [address] Jan, [facility] [address] [facility] [id number] [place] 0870724[address] Jan, [facility] [place] [facility] [address] [facility] [id number], [place] [address] Jan, [facility] [place] [facility] [address] [id number] [place] [address] Jan, [facility] [place] [facility] [address] [facility] [id number], [place] [address] Jan, [facility] [place] [facility] [address] [facility] [id number], [place] [address] Jan, [facility] [address] [id number] [place] 730946297 Jan, [facility] [address] [id number] [place] 161078[address] Jan, [facility] [place] [facility] [address] [id number] [place] [address] Jan, [facility] [address] [id number] [place] 645163444 Jan, [facility] [place] [facility] [address] [facility] [id number], [place] [address] Jan, [facility] [address] [id number], [place] 228352190 Jan, [facility] [place] [facility] [address] [facility] [id number], [place] [address] Jan, [facility] [address] [id number], [place] 155410646 Dec, [facility] [place] [facility] [address] [facility] [id number], [place] [address] Dec, [facility] [address] [id number], [place] 792580660 Dec, [facility] [place] [facility] [address] [id number], [place] [address] Dec, [facility] [address] [id number], [place] [id number] Dec, [facility] [place] [facility] [address] [facility] [id number] [place] [address] Dec, [facility] [address] [id number], [place] 929671340 Dec, [facility] [place] [facility] [address] [facility] [id number], [place] [address] Dec, [facility] [address] [facility] [id number], [place] 863112984 Nov, [facility] [place] [facility] [address] [facility] [id number], [place] [address] Nov, [facility] [address] [facility] [id number], [place] 483180659 Nov, [facility] [place] [facility] [address] [facility] [id number], [place] [address] Nov, [facility] [place] [facility] [address] [facility] [id number], [place] [address] Nov, [facility] [place] [facility] [address], [place] [address] Nov, [facility] [place] [facility] [address] [facility] [id number], [place] [address] Nov, [facility] [place] [facility] [address] [facility] [id number], [place] [address] Nov, [facility] [address] [facility] [id number], [place] 849098162 Oct, [facility] [place] [facility] [address] [place] [id number], [place] [address] Oct, [facility] [place] [facility] [address] [facility] [id number], [place] [address] Oct, [facility] [address] [facility] [id number], [place] 910021178 Oct, [facility] [place] [facility] [address] [facility] [id number], [place] [address] Oct, [facility] [address] [facility] [id number][place] [id number] Oct, [facility] [address] [facility] [id number], [place] [address] Oct, [facility] [address] [id number] [place] [id number] Aug, [facility] [address] [facility] [id number], [place] [address] Aug, [facility] [address] [id number] [place] [id number] Jul, [facility] [id number] [place] [address] Mar, [facility] [address] [id number] [place] [id number] Mar, [facility] [address] [facility] [id number] [place] [address], [place] [address] Mar, [facility] [address] [id number] [place] [id number] Jan, [facility] [address] [id number] [place] [id number] Sep, [facility] [address] [facility] [id number], [place] [address] Sep, [facility] [address] [id number] [place] [id number] May, [facility] [address] [id number] [place] [id number] Apr, [facility] [address] [id number] [place] [id number] Mar, [facility] [address] [id number] [place] [id number] Mar, [facility] [address] [id number] [place] [id number] February, [facility] [address] [id number] [place] [id number] Jan, [facility] [address] [facility] [id number], [place] [address] Mar, [facility] [address] [facility] [id number], [place] [address] Sep, [facility] [place] [address] [id number], [place] [address] Aug, [facility] [place] [id number], [place] [address] Aug, [facility] [place] [id number], [place] [address] Aug, [facility] [place] [id number], [place] [address] Aug, [facility] [place] [id number], [place] [address] Aug, [facility] [place] [id number], [place] [address] Jul, [facility] [place] [id number], [place] [address] Apr, IMMUNIZATIONS No Known Immunizations SOCIAL HISTORY Never Assessed REASON FOR VISIT Pain management (chronic) Brendon MATUTE, New insurance, requesting MRI L-spine. PLAN OF CARE Activity Details Follow Up 2 Months Reason:back pain VITAL SIGNS Height 66 in 2018-03-30 Weight 220 lbs 2018-03-30 Temperature 96.2 degrees Fahrenheit 2018-03-30 Heart Rate 62 bpm 2018-03-30 Respiratory Rate 16 2018-03-30 BMI 35.51 kg/m2 2018-03-30 Blood pressure systolic 122 mmHg 2018-03-30 Blood pressure diastolic 78 mmHg 2018-03-30 MEDICATIONS Medication Instructions Dosage Frequency Start Date End Date Duration Status Levothyroxine Sodium 88 MCG Orally Once a day 1 tablet on an empty stomach in the morning 24h Active Walker - as directed w seat Jun, Active Omeprazole 20 mg Orally Once a day 1 capsules 24h Aug, Active Phenergan 25 mg oral 3 times a day 1 tablet 8h May, Active Lidoderm 5 % Externally Once a day 1 patch ea left and right upper back x 12 hours then remove patches for 12 hours 24h Active Baclofen 10 mg Orally Three times a day 1 tablet with food or milk 8h Active Clonazepam 0.5 MG Orally Twice a day prn .5-1 tablet Mar, Not-Taking Gabapentin 600 MG Orally 3 times a day 2 am 1.5 midday 2 hs 8h Active Fluvoxamine Maleate 50 mg Orally Once a day 1 tablet at bedtime 24h May, Active Lidoderm 5 %(700 mg/patch) Externally Once a day 1 patch ea left and right upper back x 12 hours then remove patches for 12 hours 24h Active Voltaren 1 % Transdermal 4 times a day as directed 6h Mar, Active HydrOXYzine HCl 50 MG take 1 tablet by Oral route 1 time per day PRN itching Active TENS Unit device Use as directed Mar, Active Hydrocodone-Acetaminophen 5-325 MG Orally 3 times a day must last 28 days 1- 2 tablet as needed Mar, Active RESULTS Name Result Date Reference Range Ultrasound : Soft Tissue (specify location) 2018-05-04 PROCEDURES No Known procedures INSTRUCTIONS MEDICATIONS ADMINISTERED [...]
--- OUTSIDE RECORDS SUMMARY | 2019-04-19 10:29 | XMS REPORT ---
Author Author HILDA WOLF [facility] Address [address] [place] [address] Care Team Providers Care Aging Room Hand Name Role Phone HILDA WOLF Unavailable PROBLEMS Type Condition ICD9-CM Code ZIV44-GC Code Onset Dates Condition Status SNOMED Code Problem Herniated nucleus pulposus M51.9 Active 86471493 Problem OCD (obsessive compulsive disorder) F42 Active 854783226 Problem Anxiety F41.9 Active 77871004 Problem Acquired hypothyroidism E03.9 Active 645720885 Problem Moderate episode of recurrent major depressive disorder F33.1 Active 242612467 Problem Cervicalgia M54.2 Active 26316105 Problem Polyneuropathy G62.9 Active 44798877 Problem Plantar fasciitis M72.2 Active 117091986 ALLERGIES Substance Reaction Event Type Date Status Nortriptyline HCl headache, night fu Drug Allergy Apr, Active Lamictal hives Drug Allergy Apr, Active Clindamycin HCl hives Drug Allergy Apr, Active Latex hives Non Drug Allergy Apr, Active ENCOUNTERS Encounter Location Date Diagnosis [facility] [address] [id number] [id number] Jun, [place] [id number], [place] [phone] Jun, [facility] [id number] [place] [address] [id number] Jun, Herniated nucleus pulposus M51.9 [facility] [id number] [place] [address] [id number] May, Herniated nucleus pulposus M51.9 [facility] [id number] [place] [address] [id number] Apr, Herniated nucleus pulposus M51.9 [place] [id number], [place] [id number] Apr, [facility] [id number] [place] [address] [phone] Apr, Acquired hypothyroidism E03.9 [place] [id number] [place] [address] [phone] Apr, Acquired hypothyroidism E03.9 [place] [id number] [place] [address] [id number] Apr, [place] [id number] [place] [address] [id number] Mar, Herniated nucleus pulposus M51.9 and Nodule, subcutaneous R22.9 [place] [id number] [place] [address] [id number] Mar, Herniated nucleus pulposus M51.9 [place] [address] [id number] February, Herniated nucleus pulposus M51.9 ; Polyneuropathy G62.9 and Anxiety F41.[address] [id number] Jan, Herniated nucleus pulposus M51.9 ; Moderate episode of recurrent major depressive disorder F33.1 and Acquired hypothyroidism E03.9 [place] [id number] [place] [address] [id number] Dec, Herniated nucleus pulposus M51.9 [place] [id number] [place] [address] [id number] Nov, Cervicalgia M54.2 and Herniated nucleus pulposus M51.9 [place] [id number] [place] [address] [phone] Oct, Herniated nucleus pulposus M51.9 and OCD (obsessive compulsive disorder) F42 [place] [id number] [place] [address] [id number] Oct, Herniated nucleus pulposus M51.9 [place] [id number] [place] [address] [id number] Aug, Acquired hypothyroidism E03.9 [place] [id number] [place] [address] [id number] Aug, Herniated nucleus pulposus M51.9 and Acquired hypothyroidism E03.9 [facility] [address] [address] Aug, [facility] [id number] [place] [address] [id number] Jul, Herniated nucleus pulposus M51.9 ; OCD (obsessive compulsive disorder) F42 and Pain of right upper extremity M79.601 [facility] [id number] [place] [address] [id number] Jul, Anxiety F41.9 [place] [id number] [place] [address] [id number] Jul, [place] [id number] [place] [address] [id number] Jun, OCD (obsessive compulsive disorder) F42 ; Herniated nucleus pulposus M51.9 and Acute cystitis with hematuria N30.01 [facility] [id number] [place] [address] [id number] Jun, Anxiety F41.9 [facility] [id number] [place] [address] [id number] Jun, [place] [id number] [place] [address] [id number] May, Acquired hypothyroidism E03.9 [facility] [id number] [place] [address] [id number] May, Polyneuropathy G62.9 ; OCD (obsessive compulsive disorder) F42 ; Herniated nucleus pulposus M51.9 ; Screening for lipid disorders Z13.220 ; Long-term use of high- risk medication Z79.899 and Major depressive disorder, recurrent, moderate F33.1 [facility] [address] [id number] [place] [id number] May, Dental examination Z01.20 [facility] [id number] [place] [address] [id number] May, Herniated nucleus pulposus M51.9 [id number] [place] [address] [id number] May, Herniated nucleus pulposus M51.9 and Anxiety F41.9 [facility] [address] [id number] [place] [address] [id number] Apr, Herniated nucleus pulposus M51.9 and Cervicalgia M54.2 [facility] [id number] [place] [address] [id number] Apr, Moderate episode of recurrent major depressive disorder F33.1 [facility] [id number] [place] [address] [id number] Apr, Herniated nucleus pulposus M51.9 [facility] [address] [id number] [place] [address] [id number] Apr, Herniated nucleus pulposus M51.9 [place] [id number] [place] [address] [id number] Mar, Moderate episode of recurrent major depressive disorder F33.1 [place] [id number] [place] [address] [id number] Mar, Anxiety F41.9 [facility] [id number] [place] [address] [id number] Mar, [facility] [id number] [place] [address] [id number] Mar, Herniated nucleus pulposus M51.9 and Cervicalgia M54.2 [facility] [id number] [place] [address] [phone] February, Acquired hypothyroidism E03.9 [place] [id number] [place] [address] [id number] February, Polyneuropathy G62.9 ; Herniated nucleus pulposus M51.9 ; Cervicalgia M54.2 and Acquired hypothyroidism E03.9 [facility] [id number] [place] [address] [id number] Jan, [facility] [id number] [place] [address] [id number] Jan, Cervicalgia M54.2 and Moderate episode of recurrent major depressive disorder F33.1 [facility] [id number] [place] [address] [id number] Dec, Cervicalgia M54.2 and Herniated nucleus pulposus M51.9 [facility] [id number], [place] [phone] Nov, Lymph nodes enlarged R59.9 [facility] [id number] [place] [address] [id number] Oct, Cervicalgia M54.2 [facility] [address]100[place] [address] Sep, Polyneuropathy G62.9 [facility] [id number] [place] [address] [id number] Sep, Cervicalgia M54.2 and Herniated nucleus pulposus M51.9 [place] [id number] [place] [address] [id number] Aug, Lumbar radiculopathy M54.16 and Spinal stenosis at L4-L5 level M48.06 [facility] [id number] [place] [address] [id number] Aug, Cervicalgia M54.2 and Herniated nucleus pulposus M51.9 [facility] [id number] [place] [address] [id number] Jul, [place] [id number] [place] [address] [id number] Jun, Cervicalgia M54.2 and Herniated nucleus pulposus M51.9 [place] [id number] [place] [address] [id number] May, Plantar fasciitis M72.2 [place] [id number] [place] [address] [id number] May, [place] [id number] [place] [address] [id number] Apr, Screening for lipid disorders Z13.220 ; Long-term use of high-risk medication Z79.899 and Major depressive disorder, recurrent, moderate F33.1 [facility] [id number], [place] [id number] Apr, [address] [place] [address] [id number] Mar, Herniated nucleus pulposus M51.9 and Cervicalgia M54.2 [facility] [id number], [place] [id number] Mar, Cervicalgia M54.2 and Herniated nucleus pulposus M51.9 [facility] [id number] [place] [address] [id number] February, [place] [id number] [place] [address] [id number] February, Cervicalgia M54.2 and Herniated nucleus pulposus M51.9 [facility] [id number] [place] [address] [id number] Dec, Syncope, unspecified syncope type R55 [address] [id number] Dec, Cervicalgia M54.2 ; Herniated nucleus pulposus M51.9 and Moderate episode of recurrent major depressive disorder F33.1 [place] [id number] [place] [address] [id number] Dec, [place] [id number] [place] [address] [id number] Dec, Herniated nucleus pulposus M51.9 and Cervicalgia M54.2 [place] [id number] [place] [address] [id number] Nov, [place] [id number] [place] [address] [id number] Nov, Herniated nucleus pulposus M51.9 and OCD (obsessive compulsive disorder) F42 [place] [id number] [place] [address] [id number] Sep, Displacement of intervertebral disc, site unspecified, without myelopathy 722.2 ; Cervicalgia 723.1 and Hypothyroidism, unspecified type E03.9 [place] [id number] [place] [address] [id number] Sep, [facility] [id number] [place] [address] [id number] Jun, Displacement of intervertebral disc, site unspecified, without myelopathy 722.2 and Cervicalgia 723.1 [facility] [address] [id number], [place] [id number] Mar, Displacement of intervertebral disc, site unspecified, without myelopathy 722.2 and Shingles 053.9 [facility] [address] [id number], [place] [phone] February, Shingles 053.9 [facility] [address] [id number], [place] [id number] February, Displacement of intervertebral disc, site unspecified, without myelopathy 722.2 ; Tension headache 307.81 and Cervicalgia 723.1 [facility] [address] [id number], [place] [phone] February, [facility] [id number] [place] [address] [id number] February, [facility] [id number], [place] [id number] February, [facility] [id number] [place] [address] Jan, [facility] [id number] [place] [address] Jan, [facility] [id number], [place] [id number] Jan, [facility] [address]00565100[place] [address] Jan, [facility] [place] [facility] [address] [place] [address] Jan, [facility] [id number], [place] [id number] Dec, [facility] [place] [facility] [id number] [place] [address] Dec, [facility] [id number], [place] [id number] Dec, [facility] [place] [facility] [address]00565100[place] [address] Dec, [facility] [address] [id number] [id number] Nov, [facility] [place] [facility] [address] [id number] [place] [address] Nov, [facility] [address] [facility] [id number], [place] [phone] Oct, [facility] [place] [facility] [address] [facility] [id number] [place] [address] Oct, [facility] [address] [id number], [place] [id number] Oct, [facility] [place] [facility] [address] [facility] [id number] [place] [address] Oct, [facility] [address] [id number], [place] [id number] Oct, [facility] [address] [id number], [place] [id number] Oct, [facility] [place] [facility] [address] [address] Oct, [facility] [place] [facility] [address] [facility] [id number] [place] [address] Oct, [facility] [address] [facility] [id number], [place] [phone] Oct, [facility] [place] [facility] [address] [address] Oct, [facility] [address] [facility] [id number], [place] [id number] Oct, [facility] [place] [facility] [address] [facility] [id number] [place] [address] Oct, [facility] [address] [id number], [place] [id number] Sep, [facility] [place] [facility] [address] [facility] [id number] [place] [address] Sep, [facility] [address] [id number], [place] [id number] Aug, [facility] [place] [facility] [address] [facility] [id number] [place] [address] Aug, [facility] [place] [facility] [address] [facility] [id number] [place] [address] Aug, [facility] [address] [id number], [place] [id number] Aug, [facility] [address] [facility] [id number] [place] [id number] Aug, [facility] [place] [facility] [address] [facility] [id number] [place] [address] Aug, [facility] [address] [facility] [id number] [place] [id number] Jul, [facility] [place] [facility] [address] [facility] [id number] [place] [address] Jul, [facility] [address] [facility] [id number], [place] [id number] Jul, [facility] [place] [facility] [address] [facility] [id number] [place] [address] Jul, [facility] [place] [facility] [address] [facility] [id number] [place] [address] Apr, [facility] [address] [facility] [id number], [place] [id number] Apr, [facility] [place] [facility] [address] [facility] [id number] [place] [address] Apr, [facility] [address] [facility] [id number], [place] [phone] Apr, [facility] [place] [facility] [address] [facility] [id number] [place] [address] Apr, [facility] [address] [facility] [id number], [place] [id number] Mar, [facility] [place] [facility] [address] [facility] [id number] [place] [address] Mar, [facility] [address] [facility] [id number], [place] [id number] Mar, [facility] [place] [facility] [address] [id number] [place] [address] Mar, [facility] [address] [facility] [id number] [place] [id number] February, [facility] [place] [facility] [address] [facility] [id number] [place] [address] February, [facility] [place] [facility] [address] [facility] [id number] [place] [address] February, [facility] [address] [facility] [id number], [place] [id number] February, [facility] [place] [facility] [address] [facility] [id number] [place] [address] February, [facility] [address] [facility] [id number], [place] [id number] February, [facility] [place] [facility] [address] [address] February, [facility] [place] [facility] [address] [facility] [id number] [place] [address] Jan, [facility] [place] [facility] [address] [place] [address] Jan, [facility] [place] [facility] [address] [id number] [address] Jan, [facility] [address] [facility] [id number], [place] [id number] Jan, [facility] [place] [facility] [address] [facility] [id number] [place] [address] Jan, [facility] [address] [facility] [id number] [place] 238979782 Jan, [facility] [place] [facility] [address] [facility] [id number] [place] [address] Jan, [facility] [address] [facility] [id number] [place] [id number] Jan, [facility] [place] [facility] [address] [facility] [id number] [place] [address] Jan, [facility] [place] [facility] [address] [id number] [place] [address] Jan, [facility] [place] [facility] [address] [facility] [id number] [place] [address] Jan, [facility] [place] [facility] [address] [facility] [id number] [place] [address] Jan, [facility] [address] [id number] [place] [id number] Jan, [facility] [address] [id number] [place] 828675752 Jan, [facility] [place] [facility] [address] [id number] [place] [address] Jan, [facility] [address] [id number] [place] [id number] Jan, [facility] [place] [facility] [address] [facility] [id number] [place] [address] Jan, [facility] [address] [id number], [place] [id number] Jan, [facility] [place] [facility] [address] [facility] [id number] [place] [address] Jan, [facility] [address] [id number], [place] 664723254 Dec, [facility] [place] [facility] [address] [facility] [id number] [place] [address] Dec, [facility] [address] [id number], [place] 447465605 Dec, [facility] [place] [facility] [address] [id number] [place] [address] Dec, [facility] [address] [id number], [place] 848403865 Dec, [facility] [place] [facility] [address] [facility] [id number] [place] [address] Dec, [facility] [address] [id number], [place] 577653471 Dec, [facility] [place] [facility] [address] [facility] [id number] [place] [address] Dec, [facility] [address] [facility] [id number], [place] [id number] Nov, [facility] [place] [facility] [address] [facility] [id number] [place] [address] Nov, [facility] [address] [facility] [id number], [place] [id number] Nov, [facility] [place] [facility] [address] [facility] [id number] [place] [address] Nov, [facility] [place] [facility] [address] [facility] [id number] [place] [address] Nov, [facility] [place] [facility] [address] [address] Nov, [facility] [place] [facility] [address] [facility] [id number] [place] [address] Nov, [facility] [address] [facility] [id number] [place] [address] Nov, [facility] [address] [facility] [id number][place] [id number] Oct, [facility] [address] [id number] [address] Oct, [facility] [address] [facility] [id number] [place] [address] Oct, [facility] [address] [facility] [id number][place] [id number] Oct, [facility] [address] [facility] [id number] [place] [address] Oct, [facility] [address] [facility] [id number][place] [id number] Oct, [facility] [address] [facility] [id number] [place] [address] Oct, [facility] [address] [id number] [place] [id number] Aug, [facility] [address] [facility] [id number] [place] [address] Aug, [facility] [address] [id number] [place] [id number] Jul, [facility] [id number] [place] [address] Mar, [facility] [address] [id number] [place] [id number] Mar, [facility] [address] [facility] [id number] [place] [address], [place] [address] Mar, [facility] [address] [id number] [place] [id number] Jan, [facility] [address] [id number] [place] [id number] Sep, [facility] [address] [facility] [id number] [place] [address] Sep, [facility] [address] [id number] [place] [id number] May, [facility] [address] [id number] [place] [id number] Apr, [facility] [address] [id number] [place] [id number] Mar, [facility] [address] [id number] [place] [id number] Mar, [facility] [address] [id number] [place] [id number] February, [facility] [address] [id number] [place] [id number] Jan, [facility] [address] [facility] [id number] [place] [address] Mar, [facility] [address] [facility] [id number] [place] [address] Sep, [facility] [address] [facility] [id number] [place] [address] Aug, [facility] [id number] [address] Aug, [facility] [id number] [address] Aug, [facility] [id number] [address] Aug, [facility] [id number] [address] Aug, [facility] [id number] [address] Jul, [facility] [id number] [address] Apr, IMMUNIZATIONS No Known Immunizations SOCIAL HISTORY Never Assessed REASON FOR VISIT Pain management (chronic) [facility] PLAN OF CARE Activity Details Follow Up 4 Weeks Reason:back pain VITAL SIGNS Height 66 in 2018-05-02 Weight 218.6 lbs 2018-05-02 Temperature 98.1 degrees Fahrenheit 2018-05-02 Heart Rate 63 bpm 2018-05-02 Respiratory Rate 19 2018-05-02 Oximetry 98 % 2018-05-02 BMI 35.28 kg/m2 2018-05-02 Blood pressure systolic 118 mmHg 2018-05-02 Blood pressure diastolic 72 mmHg 2018-05-02 MEDICATIONS Medication Instructions Dosage Frequency Start Date End Date Duration Status HydrOXYzine HCl 50 MG take 1 tablet by Oral route 1 time per day PRN itching Active Baclofen 10 mg Orally Three times a day 1 tablet with food or milk 8h Active Fluvoxamine Maleate 50 mg Orally Once a day 1 tablet at bedtime 24h May, Active Omeprazole 20 mg Orally Once a day 1 capsules 24h Aug, Active Gabapentin 600 MG Orally 3 times a day 2 am 1.5 midday 2 hs 8h Active Levothyroxine Sodium 100 MCG Orally Once a day 1 tablet on an empty stomach in the morning 24h Apr, 90 days Active Clonazepam 0.5 MG Orally Twice a day prn .5-1 tablet Mar, Active Lidoderm 5 % Externally Once a day 1 patch ea left and right upper back x 12 hours then remove patches for 12 hours 24h Active Walker - as directed w seat Jun, Active TENS Unit device Use as directed Mar, Active Lidoderm 5 %(700 mg/patch) Externally Once a day 1 patch ea left and right upper back x 12 hours then remove patches for 12 hours 24h Not-Taking Phenergan 25 mg oral 3 times a day 1 tablet 8h May, Active Voltaren 1 % Transdermal 4 times a day as directed 6h Mar, Active Hydrocodone-Acetaminophen 5-325 MG Orally 3 times a day must last 28 days 1- 2 tablet as needed Apr, Active RESULTS No Results PROCEDURES No Known [...]
--- OUTSIDE RECORDS SUMMARY | 2019-04-19 10:30 | XMS REPORT ---
Author Author HILDA WOLF [facility] Address [address] [place] [address] Care Team Providers Care Paving Supervisor Name Role Phone HILDA WOLF Unavailable PROBLEMS Type Condition ICD9-CM Code JTG33-GT Code Onset Dates Condition Status SNOMED Code Problem Herniated nucleus pulposus M51.9 Active 20355102 Problem OCD (obsessive compulsive disorder) F42 Active 995546020 Problem Anxiety F41.9 Active 35107555 Problem Acquired hypothyroidism E03.9 Active 541894628 Problem Moderate episode of recurrent major depressive disorder F33.1 Active 830255854 Problem Cervicalgia M54.2 Active 16771433 Problem Polyneuropathy G62.9 Active 45543711 Problem Plantar fasciitis M72.2 Active 783557641 ALLERGIES No Information ENCOUNTERS Encounter Location Date Diagnosis [facility] [id number] [place] [address] [id number] Jun, [place] [address] [id number] May, Herniated nucleus pulposus M51.9 [place] [id number] [place] [address] [id number] Apr, Herniated nucleus pulposus M51.9 [place] [id number] [place] [address] [id number] Apr, [facility] [id number] [place] [address] [id number] Apr, Acquired hypothyroidism E03.9 [place] [address] [id number] Apr, Acquired hypothyroidism E03.9 [facility] [id number] [place] [address] [id number] Apr, [place] [id number] [place] [address] [id number] Mar, Herniated nucleus pulposus M51.9 and Nodule, subcutaneous R22.9 [place] [id number] [place] [address] [id number] Mar, Herniated nucleus pulposus M51.9 [place] [id number] [place] [address] [id number] February, Herniated nucleus pulposus M51.9 ; Polyneuropathy G62.9 and Anxiety F41.[address] [id number] Jan, Herniated nucleus pulposus M51.9 ; Moderate episode of recurrent major depressive disorder F33.1 and Acquired hypothyroidism E03.[address] [id number] Dec, Herniated nucleus pulposus M51.[address] [id number] Nov, Cervicalgia M54.2 and Herniated nucleus pulposus M51.9 [place] [id number] [place] [address] [id number] Oct, Herniated nucleus pulposus M51.9 and OCD (obsessive compulsive disorder) F42 [place] [id number] [place] [address] [id number] Oct, Herniated nucleus pulposus M51.9 [place] [id number] [place] [address] [id number] Aug, Acquired hypothyroidism E03.9 [place] [id number] [place] [address] [id number] Aug, Herniated nucleus pulposus M51.9 and Acquired hypothyroidism E03.9 [facility] [address] [place] [address] Aug, [place] [id number] [place] [address] [id number] Jul, Herniated nucleus pulposus M51.9 ; OCD (obsessive compulsive disorder) F42 and Pain of right upper extremity M79.[address] [id number] Jul, Anxiety F41.9 [facility] [address] [id number][place] [id number] Jul, [facility] [id number] [place] [address] [id number] Jun, OCD (obsessive compulsive disorder) F42 ; Herniated nucleus pulposus M51.9 and Acute cystitis with hematuria N30.01 [facility] [id number] [place] [address] [id number] Jun, Anxiety F41.9 [facility] [id number] [place] [address] [id number] Jun, [place] [address] [id number] [place] [address] [id number] May, Acquired hypothyroidism E03.9 [facility] [id number] [place] [address] [id number] May, Polyneuropathy G62.9 ; OCD (obsessive compulsive disorder) F42 ; Herniated nucleus pulposus M51.9 ; Screening for lipid disorders Z13.220 ; Long-term use of high- risk medication Z79.899 and Major depressive disorder, recurrent, moderate F33.1 [facility] [address] [id number] [place] [id number] May, Dental examination Z01.20 [facility] [id number] [id number] May, Herniated nucleus pulposus M51.9 [place] [id number] [place] [address] [id number] May, Herniated nucleus pulposus M51.9 and Anxiety F41.9 [place] [address] [id number][place] [id number] Apr, Herniated nucleus pulposus M51.9 and Cervicalgia M54.2 [facility] [address] [id number][place] [id number] Apr, Moderate episode of recurrent major depressive disorder F33.1 [facility] [address] [id number], [place] [id number] Apr, Herniated nucleus pulposus M51.9 [facility] [id number][place] [id number] Apr, Herniated nucleus pulposus M51.9 [facility] [id number] [place] [address] [id number] Mar, Moderate episode of recurrent major depressive disorder F33.1 [facility] [id number] [place] [address] [id number] Mar, Anxiety F41.9 [facility] [id number] [place] [address] [id number] Mar, [facility] [id number] [place] [address] [id number] Mar, Herniated nucleus pulposus M51.9 and Cervicalgia M54.2 [facility] [id number] [place] [address] [id number] February, Acquired hypothyroidism E03.9 [facility] [place] [id number] [place] [address] [id number] February, Polyneuropathy G62.9 ; Herniated nucleus pulposus M51.9 ; Cervicalgia M54.2 and Acquired hypothyroidism E03.9 [place] [id number] [place] [address] [id number] Jan, [place] [id number] [place] [address] [id number] Jan, Cervicalgia M54.2 and Moderate episode of recurrent major depressive disorder F33.1 [facility] [address] [place] [address] [id number] Dec, Cervicalgia M54.2 and Herniated nucleus pulposus M51.9 [facility] [address] [place] [address] [id number] Nov, Lymph nodes enlarged R59.[address] [place] [address] [id number] Oct, Cervicalgia M54.2 [facility] [address]00565[address] [address] Sep, Polyneuropathy G62.9 [facility] [id number] [place] [address] [id number] Sep, Cervicalgia M54.2 and Herniated nucleus pulposus M51.9 [facility] [id number] [place] [address] [id number] Aug, Lumbar radiculopathy M54.16 and Spinal stenosis at L4-L5 level M48.06 [facility] [id number] [place] [address] [id number] Aug, Cervicalgia M54.2 and Herniated nucleus pulposus M51.9 [facility] [id number] [place] [address] [id number] Jul, [facility] [id number] [place] [address] [id number] Jun, Cervicalgia M54.2 and Herniated nucleus pulposus M51.9 [facility] [id number] [place] [address] [id number] May, Plantar fasciitis M72.2 [facility] [id number] [place] [address] [id number] May, [place] [id number] [place] [address] [id number] Apr, Screening for lipid disorders Z13.220 ; Long-term use of high-risk medication Z79.899 and Major depressive disorder, recurrent, moderate F33.1 [facility] [id number] [place] [address] [id number] Apr, [place] [id number] [place] [address] [id number] Mar, Herniated nucleus pulposus M51.9 and Cervicalgia M54.2 [facility] [id number] [place] [address] [id number] Mar, Cervicalgia M54.2 and Herniated nucleus pulposus M51.9 [facility] [id number] [place] [address] [id number] February, [facility] [id number] [place] [address] [id number] February, Cervicalgia M54.2 and Herniated nucleus pulposus M51.9 [place] [id number][place] [id number] Dec, Syncope, unspecified syncope type R55 [place] [id number] [place] [address] [id number] Dec, Cervicalgia M54.2 ; Herniated nucleus pulposus M51.9 and Moderate episode of recurrent major depressive disorder F33.1 [place] [id number] [place] [address] [id number] Dec, [place] [id number] [place] [address] [id number] Dec, Herniated nucleus pulposus M51.9 and Cervicalgia M54.2 [place] [id number] [place] [address] [id number] Nov, [place] [id number] [place] [address] [id number] Nov, Herniated nucleus pulposus M51.9 and OCD (obsessive compulsive disorder) F42 [place] [id number] [place] [address] [id number] Sep, Displacement of intervertebral disc, site unspecified, without myelopathy 722.2 ; Cervicalgia 723.1 and Hypothyroidism, unspecified type E03.[address] [place] [address] [id number] Sep, [place] [id number] [place] [address] [id number] Jun, Displacement of intervertebral disc, site unspecified, without myelopathy 722.2 and Cervicalgia 723.[address] [place] [address] [id number] Mar, Displacement of intervertebral disc, site unspecified, without myelopathy 722.2 and Shingles 053.[address] [place] [address] [id number] February, Shingles 053.9 [place] [id number] [place] [address] [id number] February, Displacement of intervertebral disc, site unspecified, without myelopathy 722.2 ; Tension headache 307.81 and Cervicalgia 723.1 [facility] [address] [id number] [place] [id number] February, [facility] [address] [id number] [place] [id number] February, [facility] [id number] [place] [id number] February, [facility] [address] [address] Jan, [facility] [place] [facility] [address]00565100[place] [address] Jan, [facility] [id number], [place] [id number] Jan, [facility] [place] [facility] [address]00565100[address] [place] [address] Jan, [facility] [address]00565100[place] [address] Jan, [facility] [address] [id number], [place] [id number] Dec, [facility] [place] [facility] [address]00565100[address] [place] [address] Dec, [facility] [address] [id number][place] [id number] Dec, [facility] [place] [facility] [address]00565100[address] [place] [address] Dec, [facility] [address] [id number], [place] [id number] Nov, [facility] [place] [facility] [address] [id number] [address] Nov, [facility] [address] [id number], [place] [id number] Oct, [facility] [place] [facility] [address]00565100[place] [address] Oct, [facility] [id number] [place] [id number] Oct, [facility] [place] [facility] [address] [id number] [place] [address] Oct, [facility] [address] [id number] [place] [id number] Oct, [facility] [address] [id number] [place] [id number] Oct, [facility] [place] [facility] [address] [id number] [place] [address] Oct, [facility] [place] [facility] [address] [id number] [place] [address] Oct, [facility] [address] [id number], [place] [id number] Oct, [facility] [place] [facility] [address]005[address]100[address] [place] [address] Oct, [facility] [address] [facility] [id number], [place] [id number] Oct, [facility] [place] [facility] [address] [facility] [id number] [place] [address] Oct, [facility] [address] [id number], [place] [id number] Sep, [facility] [place] [facility] [address] [facility] [id number] [place] [address] Sep, [facility] [address] [id number], [place] [id number] Aug, [facility] [place] [facility] [address] [id number] [place] [address] Aug, [facility] [place] [facility] [address] [facility] [id number] [place] [address] Aug, [facility] [address] [id number], [place] [id number] Aug, [facility] [address] [id number], [place] [id number] Aug, [facility] [place] [facility] [address] [facility] [id number] [place] [address] Aug, [facility] [address] [facility] [id number] [place] [id number] Jul, [facility] [place] [facility] [address] [facility] [id number] [place] [address] Jul, [facility] [address] [facility] [id number] [place] [id number] Jul, [facility] [place] [facility] [address] [facility] [id number] [place] [address] Jul, [facility] [place] [facility] [address] [facility] [id number] [place] [address] Apr, [facility] [address] [facility] [id number], [place] [id number] Apr, [facility] [place] [facility] [address] [facility] [id number] [place] [address] Apr, [facility] [address] [facility] [id number], [place] [id number] Apr, [facility] [place] [facility] [address] [facility] [id number] [place] [address] Apr, [facility] [address] [facility] [id number], [place] [id number] Mar, [facility] [place] [facility] [address] [facility] [id number] [place] [address] Mar, [facility] [address] [facility] [id number], [place] [id number] Mar, [facility] [place] [facility] [address] [facility] [id number] [place] [address] Mar, [facility] [address] [facility] [id number], [place] [id number] February, [facility] [place] [facility] [address] [facility] [id number] [place] [address] February, [facility] [place] [facility] [address] [facility] [id number] [place] [address] February, [facility] [address] [id number] [place] [id number] February, [facility] [place] [facility] [address] [id number] [place] [address] February, [facility] [address] [id number] [place] [id number] February, [facility] [place] [facility] [address] [id number] [place] [address] February, [facility] [place] [facility] [address] [id number] [place] [address] Jan, [facility] [place] [facility] [address] [facility] [id number] [place] [address] Jan, [facility] [place] [facility] [id number] [place] [address] Jan, [facility] [address] [facility] [id number] [place] [id number] Jan, [facility] [place] [facility] [address] [facility] [id number] [place] [address] Jan, [facility] [address] [facility] [id number], [place] [id number] Jan, [facility] [place] [facility] [id number] [place] [address] Jan, [facility] [address] [facility] [id number][place] [id number] Jan, [facility] [place] [facility] [address] [facility] [id number] [place] [address] Jan, [facility] [place] [facility] [address] [facility] [id number] [place] [address] Jan, [facility] [place] [facility] [address] [facility] [id number] [place] [address] Jan, [facility] [place] [facility] [address] [facility] [id number] [place] [address] Jan, [facility] [address] [id number] [place] [id number] Jan, [facility] [address] [id number] [place] 845374612 Jan, [facility] [place] [facility] [address] [facility] [id number] [place] [address] Jan, [facility] [address] [id number] [place] [id number] Jan, [facility] [place] [facility] [address] [facility] [id number] [place] [address] Jan, [facility] [address] [id number] [place] [id number] Jan, [facility] [place] [facility] [address] [facility] [id number] [place] [address] Jan, [facility] [address] [facility] [id number] [place] [id number] Dec, [facility] [place] [facility] [address]00565[address] [address] Dec, [facility] [address] [facility] [id number] [place] [id number] Dec, [facility] [place] [facility] [address]00565[address] [address] Dec, [facility] [address] [facility] [id number] [place] [id number] Dec, [facility] [place] [facility] [address] [facility] [id number] [place] [address] Dec, [facility] [address] [facility] [id number] [place] [id number] Dec, [facility] [place] [facility] [address] [facility] [id number] [place] [address] Dec, [facility] [address] [facility] [id number] [place] [id number] Nov, [facility] [place] [facility] [address] [facility] [id number] [place] [address] Nov, [facility] [address] [facility] [id number], [place] [id number] Nov, [facility] [place] [facility] [address] [facility] [id number] [place] [address] Nov, [facility] [place] [facility] [address] [facility] [id number] [place] [address] Nov, [facility] [place] [facility] [address] [facility] [id number] [place] [address] Nov, [facility] [place] [facility] [address] [facility] [id number] [place] [address] Nov, [facility] [place] [facility] [address] [facility] [id number] [place] [address] Nov, [facility] [address] [facility] [id number], [place] [id number] Oct, [facility] [place] [facility] [address]00565[address] [place] [address] Oct, [facility] [place] [facility] [address] [facility] [id number] [place] [address] Oct, [facility] [place] [address] [facility] [id number][place] [id number] Oct, [facility] [place] [facility] [address] [facility] [id number] [place] [address] Oct, [facility] [place] [address] [facility] [id number][place] [id number] Oct, [facility] [place] [facility] [address] [facility] [id number] [place] [address] Oct, [facility] [place] [address] [facility] [id number][place] [id number] Aug, [facility] [place] [facility] [address] [facility] [id number] [place] [address] Aug, [facility] [place] [address] [facility] [id number][place] [id number] Jul, [facility] [place] [facility] [address] [facility] [id number] [place] [address] Mar, [facility] [place] [address] [id number] [place] [id number] Mar, [facility] [place] [facility] [address] [facility] [id number] [place] [address] Mar, [facility] [place] [address] [id number] [place] [id number] Jan, [facility] [place] [address] [id number] [place] [id number] Sep, [facility] [place] [facility] [address] [facility] [id number] [place] [address] Sep, [facility] [place] [address] [id number] [place] [id number] May, [facility] [place] [address] [id number] [place] [id number] Apr, [facility] [place] [address] [id number] [place] [id number] Mar, [facility] [place] [address] [id number] [place] [id number] Mar, [facility] [place] [address] [id number] [place] [id number] February, [facility] [place] [address] [id number] [place] [id number] Jan, [facility] [place] [facility] [id number] [place] [address] Mar, [facility] [place] [facility] [id number] [place] [address] Sep, [facility] [place] [facility] [address] [facility] [id number] [place] [address] Aug, [facility] [place] [facility] [address] [id number] [place] [address] Aug, [facility] [place] [facility] [address] [facility] [facility] [id number] [place] [address] Aug, [facility] [place] [facility] [id number] [place] [address] Aug, [facility] [address] [facility] [id number] [place] [address] Aug, [facility] [address] [facility] [id number] [place] [address] Jul, [facility] [address] [facility] [id number] [place] [address] Apr, IMMUNIZATIONS No Known Immunizations SOCIAL HISTORY Never Assessed REASON FOR VISIT Lab results/Med change PLAN OF CARE VITAL SIGNS MEDICATIONS Unknown [...]
--- OUTSIDE RECORDS SUMMARY | 2019-04-19 10:30 | XMS REPORT ---
Author Author BRANDEN ARTEAGA [facility] Address [address] [place] [address] Care Team Providers Care Flash Drier Operator Name Role Phone BRANDEN ARTEAGA Unavailable PROBLEMS Type Condition ICD9-CM Code UBD29-DR Code Onset Dates Condition Status SNOMED Code Problem Herniated nucleus pulposus M51.9 Active 90606345 Problem OCD (obsessive compulsive disorder) F42 Active 486521195 Problem Anxiety F41.9 Active 11864914 Problem Acquired hypothyroidism E03.9 Active 277109185 Problem Moderate episode of recurrent major depressive disorder F33.1 Active 905849054 Problem Cervicalgia M54.2 Active 85170621 Problem Polyneuropathy G62.9 Active 57686106 Problem Plantar fasciitis M72.2 Active 416803193 ALLERGIES No Information ENCOUNTERS Encounter Location Date Diagnosis [facility] [address] [id number] Jun, [facility] [address] [id number] May, Herniated nucleus pulposus M51.9 [facility] [id number] [place] [address] [id number] Apr, Herniated nucleus pulposus M51.9 [facility] [id number] [place] [address] [id number] Apr, [facility] [id number] [place] [address] [id number] Apr, Acquired hypothyroidism E03.9 [facility] [address] [id number] Apr, Acquired hypothyroidism E03.9 [facility] [id number] [place] [address] [id number] Apr, [facility] [address] [id number] Mar, Herniated nucleus pulposus M51.9 and Nodule, subcutaneous R22.9 [place] [id number] [place] [address] [id number] Mar, Herniated nucleus pulposus M51.9 [place] [id number] [place] [address] [id number] February, Herniated nucleus pulposus M51.9 ; Polyneuropathy G62.9 and Anxiety F41.9 [place] [id number] [place] [address] [id number] Jan, Herniated nucleus pulposus M51.9 ; Moderate episode of recurrent major depressive disorder F33.1 and Acquired hypothyroidism E03.9 [place] [id number] [place] [address] [id number] Dec, Herniated nucleus pulposus M51.9 [place] [id number] [place] [address] [id number] Nov, Cervicalgia M54.2 and Herniated nucleus pulposus M51.[address] [place] [address] [id number] Oct, Herniated nucleus pulposus M51.9 and OCD (obsessive compulsive disorder) F42 [address] [place] [address] [id number] Oct, Herniated nucleus pulposus M51.9 [address] [place] [address] [id number] Aug, Acquired hypothyroidism E03.[address] [place] [address] [id number] Aug, Herniated nucleus pulposus M51.9 and Acquired hypothyroidism E03.9 [facility] [address]00565[address] [address] Aug, [address] [place] [address] [id number] Jul, Herniated nucleus pulposus M51.9 ; OCD (obsessive compulsive disorder) F42 and Pain of right upper extremity M79.601 [place] [id number] [id number] Jul, Anxiety F41.9 [facility] [address] [id number][place] [id number] Jul, [facility] [id number] [place] [address] [id number] Jun, OCD (obsessive compulsive disorder) F42 ; Herniated nucleus pulposus M51.9 and Acute cystitis with hematuria N30.01 [facility] [id number] [place] [address] [id number] Jun, Anxiety F41.9 [place] [id number] [place] [address] [id number] Jun, [place] [id number] [place] [address] [id number] May, Acquired hypothyroidism E03.[address] [place] [address] [id number] May, Polyneuropathy G62.9 ; OCD (obsessive compulsive disorder) F42 ; Herniated nucleus pulposus M51.9 ; Screening for lipid disorders Z13.220 ; Long-term use of high- risk medication Z79.899 and Major depressive disorder, recurrent, moderate F33.1 [facility] [address] [id number] [id number] May, Dental examination Z01.20 [facility] [address] [id number] [id number] May, Herniated nucleus pulposus M51.9 [place] [id number][place] [id number] May, Herniated nucleus pulposus M51.9 and Anxiety F41.[address] [id number], [place] [id number] Apr, Herniated nucleus pulposus M51.9 and Cervicalgia M54.2 [facility] [address] [id number], [place] [id number] Apr, Moderate episode of recurrent major depressive disorder F33.1 [place] [id number] [place] [address] [id number] Apr, Herniated nucleus pulposus M51.9 [address] [place] [address] [id number] Apr, Herniated nucleus pulposus M51.9 [address] [place] [address] [id number] Mar, Moderate episode of recurrent major depressive disorder F33.1 [place] [id number] [place] [address] [id number] Mar, Anxiety F41.9 [address] [place] [address] [id number] Mar, [place] [id number] [place] [address] [id number] Mar, Herniated nucleus pulposus M51.9 and Cervicalgia M54.2 [place] [id number] [place] [address] [id number] February, Acquired hypothyroidism E03.9 [place] [id number] [place] [address] [id number] February, Polyneuropathy G62.9 ; Herniated nucleus pulposus M51.9 ; Cervicalgia M54.2 and Acquired hypothyroidism E03.9 [address] [place] [address] [id number] Jan, [place] [id number] [place] [address] [id number] Jan, Cervicalgia M54.2 and Moderate episode of recurrent major depressive disorder F33.1 [address] [place] [address] [id number] Dec, Cervicalgia M54.2 and Herniated nucleus pulposus M51.9 [address] [place] [address] [id number] Nov, Lymph nodes enlarged R59.9 [address] [place] [address] [id number] Oct, Cervicalgia M54.2 [facility] [id number] [place] [address] Sep, Polyneuropathy G62.9 [facility] [id number], [place] [id number] Sep, Cervicalgia M54.2 and Herniated nucleus pulposus M51.9 [facility] [id number] [place] [address] [id number] Aug, Lumbar radiculopathy M54.16 and Spinal stenosis at L4-L5 level M48.06 [facility] [id number] [place] [address] [id number] Aug, Cervicalgia M54.2 and Herniated nucleus pulposus M51.9 [facility] [id number] [place] [address] [id number] Jul, [facility] [id number] [place] [address] [id number] Jun, Cervicalgia M54.2 and Herniated nucleus pulposus M51.9 [place] [id number] [place] [address] [id number] May, Plantar fasciitis M72.2 [facility] [id number] [place] [address] [id number] May, [place] [id number] [place] [address] [id number] Apr, Screening for lipid disorders Z13.220 ; Long-term use of high-risk medication Z79.899 and Major depressive disorder, recurrent, moderate F33.1 [place] [id number] [place] [address] [id number] Apr, [place] [id number] [place] [address] [id number] Mar, Herniated nucleus pulposus M51.9 and Cervicalgia M54.2 [place] [id number] [place] [address] [id number] Mar, Cervicalgia M54.2 and Herniated nucleus pulposus M51.9 [facility] [id number] [place] [address] [id number] February, [place] [id number] [place] [address] [id number] February, Cervicalgia M54.2 and Herniated nucleus pulposus M51.9 [place] [id number] [place] [address] [id number] Dec, Syncope, unspecified syncope type R55 [place] [id number] [place] [address] [id number] Dec, Cervicalgia M54.2 ; Herniated nucleus pulposus M51.9 and Moderate episode of recurrent major depressive disorder F33.1 [place] [id number] [place] [address] [id number] Dec, [place] [id number] [place] [address] [id number] Dec, Herniated nucleus pulposus M51.9 and Cervicalgia M54.2 [place] [id number] [place] [address] [id number] Nov, [address] [id number] Nov, Herniated nucleus pulposus M51.9 and OCD (obsessive compulsive disorder) F42 [place] [id number] [place] [address] [id number] Sep, Displacement of intervertebral disc, site unspecified, without myelopathy 722.2 ; Cervicalgia 723.1 and Hypothyroidism, unspecified type E03.9 [address] [place] [address] [id number] Sep, [place] [id number] [place] [address] [id number] Jun, Displacement of intervertebral disc, site unspecified, without myelopathy 722.2 and Cervicalgia 723.1 [place] [id number] [place] [address] [id number] Mar, Displacement of intervertebral disc, site unspecified, without myelopathy 722.2 and Shingles 053.9 [place] [id number] [place] [address] [id number] February, Shingles 053.9 [place] [id number] [place] [address] [id number] February, Displacement of intervertebral disc, site unspecified, without myelopathy 722.2 ; Tension headache 307.81 and Cervicalgia 723.1 [facility] [id number][place] [id number] February, [facility] [id number], [place] [id number] February, [facility] [id number], [place] [id number] February, [facility] [place] [facility] [id number] [place] [address] Jan, [facility] [place] [facility] [id number] [place] [address] Jan, [facility] [id number] [place] [address] [id number] Jan, [facility] [place] [facility] [id number] [place] [address] Jan, [facility] [place] [facility] [id number] [place] [address] Jan, [facility] [id number], [place] [id number] Dec, [facility] [place] [facility] [id number] [place] [address] Dec, [facility] [id number], [place] [id number] Dec, [facility] [place] [facility] [address]100[place] [address] Dec, [facility] [address] [id number][place] [id number] Nov, [facility] [place] [facility] [address] [id number] [address] Nov, [facility] [address] [id number], [place] [id number] Oct, [facility] [place] [facility] [id number] [place] [address] Oct, [facility] [address] [id number] [place] [id number] Oct, [facility] [place] [facility] [address] [id number] [address] Oct, [facility] [address] [id number], [place] [id number] Oct, [facility] [address] [id number] [place] [id number] Oct, [facility] [place] [facility] [address] [id number] [place] [address] Oct, [facility] [place] [facility] [address] [facility] [id number] [place] [address] Oct, [facility] [address] [facility] [id number], [place] [id number] Oct, [facility] [place] [facility] [address] [facility] [id number] [place] [address] Oct, [facility] [address] [facility] [id number], [place] [id number] Oct, [facility] [place] [facility] [address] [facility] [id number] [place] [address] Oct, [facility] [address] [facility] [id number], [place] [id number] Sep, [facility] [place] [facility] [address] [facility] [id number] [place] [address] Sep, [facility] [address] [id number], [place] [id number] Aug, [facility] [place] [facility] [address] [facility] [id number] [place] [address] Aug, [facility] [place] [facility] [address] [facility] [id number] [place] [address] Aug, [facility] [address] [id number], [place] [id number] Aug, [facility] [address] [id number], [place] [id number] Aug, [facility] [place] [facility] [address] [facility] [id number] [place] [address] Aug, [facility] [address] [facility] [id number] [place] [id number] Jul, [facility] [place] [facility] [address] [facility] [id number] [place] [address] Jul, [facility] [address] [facility] [id number] [place] [id number] Jul, [facility] [place] [facility] [address] [facility] [id number] [place] [address] Jul, [facility] [place] [facility] [address] [facility] [id number] [place] [address] Apr, [facility] [address] [facility] [id number] [place] [id number] Apr, [facility] [place] [facility] [address] [facility] [id number] [place] [address] Apr, [facility] [address] [facility] [id number], [place] [id number] Apr, [facility] [place] [facility] [address] [facility] [id number] [place] [address] Apr, [facility] [address] [facility] [id number], [place] [id number] Mar, [facility] [place] [facility] [address] [facility] [id number] [place] [address] Mar, [facility] [address] [facility] [id number], [place] [id number] Mar, [facility] [place] [facility] [address] [facility] [id number] [place] [address] Mar, [facility] [address] [facility] [id number], [place] [id number] February, [facility] [place] [facility] [address] [facility] [id number] [place] [address] February, [facility] [place] [facility] [address] [facility] [id number] [place] [address] February, [facility] [address] [id number] [place] [id number] February, [facility] [place] [facility] [address] [id number] [place] [address] February, [facility] [address] [facility] [id number] [place] [id number] February, [facility] [place] [facility] [address] [id number] [place] [address] February, [facility] [place] [facility] [address] [id number] [place] [address] Jan, [facility] [place] [facility] [address] [id number] [place] [address] Jan, [facility] [place] [facility] [address] [facility] [id number] [place] [address] Jan, [facility] [address] [facility] [id number], [place] 019967838 Jan, [facility] [place] [facility] [address] [id number] [place] [address] Jan, [facility] [address] [facility] [id number] [place] 2394[address]483 Jan, [facility] [place] [facility] [address] [id number] [place] [address] Jan, [facility] [address] [facility] [id number] [place] [id number] Jan, [facility] [place] [facility] [address] [id number] [place] [address] Jan, [facility] [place] [facility] [address] [id number] [place] [address] Jan, [facility] [place] [facility] [address] [facility] [id number] [place] [address] Jan, [facility] [place] [facility] [address] [facility] [id number] [place] [address] Jan, [facility] [address] [id number] [place] 6179[address] Jan, [facility] [address] [id number] [place] [id number] Jan, [facility] [place] [facility] [address] [facility] [id number] [place] [address] Jan, [facility] [address] [facility] [id number] [place] [id number] Jan, [facility] [place] [facility] [address] [facility] [id number] [place] [address] Jan, [facility] [address] [id number] [place] [id number] Jan, [facility] [place] [facility] [address] [facility] [id number] [place] [address] Jan, [facility] [address] [facility] [id number] [place] [id number] Dec, [facility] [place] [facility] [address] [id number] [address] Dec, [facility] [address] [facility] [id number] [place] [id number] Dec, [facility] [place] [facility] [address] [facility] [id number] [place] [address] Dec, [facility] [address] [facility] [id number] [place] 5683844[address] Dec, [facility] [place] [facility] [address] [facility] [id number] [place] [address] Dec, [facility] [address] [facility] [id number] [place] [address] Dec, [facility] [place] [facility] [address] [facility] [id number] [place] [address] Dec, [facility] [address] [facility] [id number] [place] [id number] Nov, [facility] [place] [facility] [address] [facility] [id number] [place] [address] Nov, [facility] [address] [id number], [place] [id number] Nov, [facility] [place] [facility] [address] [facility] [id number] [place] [address] Nov, [facility] [place] [facility] [address] [facility] [id number] [place] [address] Nov, [facility] [place] [facility] [id number] [place] [address] Nov, [facility] [place] [facility] [address] [facility] [id number] [place] [address] Nov, [facility] [place] [facility] [id number] [place] [address] Nov, [facility] [address] [id number], [place] 138928525 Oct, [facility] [place] [facility] [address]00565100[place] [address] Oct, [facility] [place] [facility] [address]00565100[place] [address] Oct, [facility] [address] [facility] [id number], [place] 641266935 Oct, [facility] [place] [facility] [address]00565100[place] [address] Oct, [facility] [address] [facility] [id number], [place] [id number] Oct, [facility] [place] [facility] [address] [facility] [id number] [place] [address] Oct, [facility] [address] [facility] [id number][place] 051506217 Aug, [facility] [place] [facility] [address] [facility] [id number] [place] [address] Aug, [facility] [address] [facility] [id number], [place] 023549302 Jul, [facility] [place] [facility] [address]00565100[place] [address] Mar, [facility] [address] [id number] [place] [id number] Mar, [facility] [place] [facility] [address] [facility] [id number] [place] [address] Mar, [facility] [address] [id number] [place] 028479[address] Jan, [facility] [address] [id number] [place] [address] Sep, [facility] [place] [facility] [address] [facility] [id number] [place] [address] Sep, [facility] [address] [id number] [place] [id number] May, [facility] [address] [id number] [place] [id number] Apr, [facility] [address] [id number] [place] [address] Mar, [facility] [address] [id number] [place] [address] Mar, [facility] [address] [id number] [place] [id number] February, [facility] [address] [id number] [place] [address]622537[address] Jan, [facility] [place] [facility] [address]00565100[place] [address] Mar, [facility] [place] [facility] [address] [facility] [id number] [place] [address] Sep, [facility] [address] [facility] [id number] [address] Aug, [facility] [address] [facility] [id number] [address] Aug, [facility] [id number] [address] Aug, [facility] [address] [facility] [id number] [place] [address] Aug, [facility] [address] [facility] [id number] [address] Aug, [facility] [address] [facility] [id number] [place] [address] Jul, [facility] [address] [facility] [id number] [place] [address] Apr, IMMUNIZATIONS No Known Immunizations SOCIAL HISTORY Never Assessed REASON FOR VISIT New Rx PLAN OF CARE VITAL SIGNS MEDICATIONS Medication Instructions Dosage Frequency Start Date End Date Duration Status Levothyroxine Sodium 100 MCG Orally Once a day 1 tablet on an empty stomach in the morning 24h Apr, 90 days Active RESULTS No Results PROCEDURES No [...]
--- OUTSIDE RECORDS SUMMARY | 2019-04-19 10:31 | XMS REPORT ---
Author Author HILDA WOLF [facility] Address [address] [place] [address] Care Team Providers Care Ammonium Hydroxide Operator Name Role Phone HILDA WOLF Unavailable PROBLEMS Type Condition ICD9-CM Code XTR05-FT Code Onset Dates Condition Status SNOMED Code Problem Herniated nucleus pulposus M51.9 Active 60845608 Problem OCD (obsessive compulsive disorder) F42 Active 375606344 Problem Anxiety F41.9 Active 70079776 Problem Acquired hypothyroidism E03.9 Active 307755173 Problem Moderate episode of recurrent major depressive disorder F33.1 Active 691368381 Problem Cervicalgia M54.2 Active 66158508 Problem Polyneuropathy G62.9 Active 65814378 Problem Plantar fasciitis M72.2 Active [id number] ALLERGIES No Information ENCOUNTERS Encounter Location Date Diagnosis [facility] [id number] [place] [address] [id number] Jun, [place] [address] [id number] May, Herniated nucleus pulposus M51.9 [place] [id number] [place] [address] [id number] Apr, Herniated nucleus pulposus M51.9 [place] [id number] [place] [address] [id number] Apr, [facility] [id number] [place] [address] [id number] Apr, Acquired hypothyroidism E03.9 [place] [address] [id number] Apr, Acquired hypothyroidism E03.9 [facility] [id number] [place] [address] [id number] Apr, [place] [id number] [place] [address] [id number] Mar, Herniated nucleus pulposus M51.9 and Nodule, subcutaneous R22.9 [place] [id number] [place] [address] [id number] Mar, Herniated nucleus pulposus M51.9 [place] [id number] [place] [address] [id number] February, Herniated nucleus pulposus M51.9 ; Polyneuropathy G62.9 and Anxiety F41.[address] [id number] Jan, Herniated nucleus pulposus M51.9 ; Moderate episode of recurrent major depressive disorder F33.1 and Acquired hypothyroidism E03.[address] [id number] Dec, Herniated nucleus pulposus M51.[address] [id number] Nov, Cervicalgia M54.2 and Herniated nucleus pulposus M51.9 [place] [id number] [place] [address] [id number] Oct, Herniated nucleus pulposus M51.9 and OCD (obsessive compulsive disorder) F42 [place] [id number] [place] [address] [id number] Oct, Herniated nucleus pulposus M51.9 [place] [id number] [place] [address] [id number] Aug, Acquired hypothyroidism E03.9 [place] [id number] [place] [address] [id number] Aug, Herniated nucleus pulposus M51.9 and Acquired hypothyroidism E03.9 [facility] [id number] [place] [address] Aug, [place] [id number] [place] [address] [id number] Jul, Herniated nucleus pulposus M51.9 ; OCD (obsessive compulsive disorder) F42 and Pain of right upper extremity M79.[address] [id number] Jul, Anxiety F41.9 [facility] [address] [id number] [id number] Jul, [facility] [id number] [place] [address] [phone] Jun, OCD (obsessive compulsive disorder) F42 ; Herniated nucleus pulposus M51.9 and Acute cystitis with hematuria N30.01 [facility] [id number] [place] [address] [id number] Jun, Anxiety F41.9 [facility] [address] [id number] [place] [address] [id number] Jun, [place] [address] [id number] [place] [address] [id number] May, Acquired hypothyroidism E03.9 [facility] [id number] [place] [address] [id number] May, Polyneuropathy G62.9 ; OCD (obsessive compulsive disorder) F42 ; Herniated nucleus pulposus M51.9 ; Screening for lipid disorders Z13.220 ; Long-term use of high- risk medication Z79.899 and Major depressive disorder, recurrent, moderate F33.1 [facility] [address] [id number] [id number] May, Dental examination Z01.20 [facility] [id number][place] [id number] May, Herniated nucleus pulposus M51.9 [place] [address] [id number] [place] [address] [id number] May, Herniated nucleus pulposus M51.9 and Anxiety F41.9 [place] [address] [id number] [id number] Apr, Herniated nucleus pulposus M51.9 and Cervicalgia M54.2 [facility] [address] [id number][place] [id number] Apr, Moderate episode of recurrent major depressive disorder F33.1 [facility] [address] [id number], [place] [id number] Apr, Herniated nucleus pulposus M51.9 [facility] [place] [id number], [place] [id number] Apr, Herniated nucleus pulposus M51.9 [facility] [place] [id number] [place] [address] [id number] Mar, Moderate episode of recurrent major depressive disorder F33.1 [facility] [place] [id number] [place] [address] [id number] Mar, Anxiety F41.9 [facility] [place] [id number] [place] [address] [id number] Mar, [facility] [place] [id number] [place] [address] [id number] Mar, Herniated nucleus pulposus M51.9 and Cervicalgia M54.2 [facility] [place] [id number] [place] [address] [id number] February, Acquired hypothyroidism E03.9 [facility] [place] [id number] [place] [address] [id number] February, Polyneuropathy G62.9 ; Herniated nucleus pulposus M51.9 ; Cervicalgia M54.2 and Acquired hypothyroidism E03.9 [place] [id number] [place] [address] [id number] Jan, [place] [id number] [place] [address] [id number] Jan, Cervicalgia M54.2 and Moderate episode of recurrent major depressive disorder F33.1 [facility] [address] [place] [address] [id number] Dec, Cervicalgia M54.2 and Herniated nucleus pulposus M51.9 [facility] [id number] [place] [address] [id number] Nov, Lymph nodes enlarged R59.[address] [place] [address] [id number] Oct, Cervicalgia M54.2 [facility] [address]00565100[place], [place] [address] Sep, Polyneuropathy G62.9 [facility] [id number] [place] [address] [id number] Sep, Cervicalgia M54.2 and Herniated nucleus pulposus M51.9 [facility] [id number] [place] [address] [id number] Aug, Lumbar radiculopathy M54.16 and Spinal stenosis at L4-L5 level M48.06 [facility] [id number] [place] [address] [id number] Aug, Cervicalgia M54.2 and Herniated nucleus pulposus M51.9 [facility] [id number] [place] [address] [id number] Jul, [facility] [id number] [place] [address] [id number] Jun, Cervicalgia M54.2 and Herniated nucleus pulposus M51.9 [facility] [id number] [place] [address] [id number] May, Plantar fasciitis M72.2 [facility] [id number] [place] [address] [id number] May, [place] [id number] [place] [address] [id number] Apr, Screening for lipid disorders Z13.220 ; Long-term use of high-risk medication Z79.899 and Major depressive disorder, recurrent, moderate F33.1 [facility] [id number] [place] [address] [id number] Apr, [place] [id number] [place] [address] [id number] Mar, Herniated nucleus pulposus M51.9 and Cervicalgia M54.2 [facility] [id number] [place] [address] [id number] Mar, Cervicalgia M54.2 and Herniated nucleus pulposus M51.9 [facility] [id number] [place] [address] [id number] February, [facility] [id number] [place] [address] [id number] February, Cervicalgia M54.2 and Herniated nucleus pulposus M51.9 [place] [id number], [place] [id number] Dec, Syncope, unspecified syncope type R55 [place] [id number] [place] [address] [id number] Dec, Cervicalgia M54.2 ; Herniated nucleus pulposus M51.9 and Moderate episode of recurrent major depressive disorder F33.1 [place] [id number] [place] [address] [id number] Dec, [place] [id number] [place] [address] [id number] Dec, Herniated nucleus pulposus M51.9 and Cervicalgia M54.2 [place] [id number] [place] [address] [id number] Nov, [place] [id number] [place] [address] [id number] Nov, Herniated nucleus pulposus M51.9 and OCD (obsessive compulsive disorder) F42 [place] [id number] [place] [address] [id number] Sep, Displacement of intervertebral disc, site unspecified, without myelopathy 722.2 ; Cervicalgia 723.1 and Hypothyroidism, unspecified type E03.[address] [place] [address] [id number] Sep, [place] [id number] [place] [address] [id number] Jun, Displacement of intervertebral disc, site unspecified, without myelopathy 722.2 and Cervicalgia 723.[address] [place] [address] [id number] Mar, Displacement of intervertebral disc, site unspecified, without myelopathy 722.2 and Shingles 053.[address] [place] [address] [id number] February, Shingles 053.9 [place] [id number] [place] [address] [id number] February, Displacement of intervertebral disc, site unspecified, without myelopathy 722.2 ; Tension headache 307.81 and Cervicalgia 723.1 [facility] [place] [address] [id number] [place] [id number] February, [facility] [place] [address] [id number] [place] [id number] February, [facility] [place] [address] [id number] [place] [id number] February, [facility] [address], [place] [address] Jan, [facility] [place] [facility] [address]00565100[place], [place] [address] Jan, [facility] [place] [id number], [place] [id number] Jan, [facility] [place] [facility] [address], [place] [address] Jan, [facility] [address]00565100[place], [place] [address] Jan, [facility] [place] [address] [id number] [id number] Dec, [facility] [place] [facility] [address]00565100[place], [place] [address] Dec, [facility] [place] [address] [id number], [place] [id number] Dec, [facility] [place] [facility] [address]65100[place], [place] [address] Dec, [facility] [place] [address] [id number] [id number] Nov, [facility] [place] [facility] [address] [id number], [place] [address] Nov, [facility] [place] [address] [id number], [place] [id number] Oct, [facility] [place] [facility] [address]65100[place], [place] [address] Oct, [facility] [place] [id number] [place] [id number] Oct, [facility] [place] [facility] [address] [id number], [place] [address] Oct, [facility] [place] [address] [id number] [place] [id number] Oct, [facility] [place] [address] [id number] [place] [id number] Oct, [facility] [place] [facility] [address] [id number], [place] [address] Oct, [facility] [place] [facility] [address] [id number], [place] [address] Oct, [facility] [place] [address] [id number], [place] [id number] Oct, [facility] [place] [facility] [address], [place] [address] Oct, [facility] [place] [address] [facility] [id number], [place] [id number] Oct, [facility] [place] [facility] [address] [facility] [id number], [place] [address] Oct, [facility] [place] [address] [id number], [place] [id number] Sep, [facility] [place] [facility] [address] [facility] [id number], [place] [address] Sep, [facility] [place] [address] [id number], [place] [id number] Aug, [facility] [place] [facility] [address] [id number], [place] [address] Aug, [facility] [place] [facility] [address] [facility] [id number], [place] [address] Aug, [facility] [place] [address] [id number], [place] [id number] Aug, [facility] [place] [address] [id number], [place] [id number] Aug, [facility] [place] [facility] [address] [facility] [id number] [place] [address] Aug, [facility] [place] [address] [facility] [id number] [place] [id number] Jul, [facility] [place] [facility] [address] [facility] [id number] [place] [address] Jul, [facility] [place] [address] [facility] [id number] [place] [id number] Jul, [facility] [place] [facility] [address] [facility] [id number], [place] [address] Jul, [facility] [place] [facility] [address] [facility] [id number] [place] [address] Apr, [facility] [place] [address] [facility] [id number], [place] [id number] Apr, [facility] [place] [facility] [address] [facility] [id number], [place] [address] Apr, [facility] [place] [address] [facility] [id number], [place] [id number] Apr, [facility] [place] [facility] [address] [facility] [id number], [place] [address] Apr, [facility] [place] [address] [facility] [id number], [place] [id number] Mar, [facility] [place] [facility] [address] [facility] [id number], [place] [address] Mar, [facility] [place] [address] [facility] [id number], [place] [id number] Mar, [facility] [place] [facility] [address] [facility] [id number], [place] [address] Mar, [facility] [place] [address] [facility] [id number], [place] [id number] February, [facility] [place] [facility] [address] [facility] [id number] [place] [address] February, [facility] [place] [facility] [address] [facility] [id number], [place] [address] February, [facility] [place] [address] [id number] [place] 095784153 February, [facility] [place] [facility] [address] [id number] [place] [address] February, [facility] [place] [address] [id number] [place] [id number] February, [facility] [place] [facility] [address] [id number] [place] [address] February, [facility] [place] [facility] [address] [id number] [place] [address] Jan, [facility] [place] [facility] [address] [facility] [id number] [place] [address] Jan, [facility] [place] [facility] [address] [id number] [place] [address] Jan, [facility] [place] [address] [facility] [id number] [place] [id number] Jan, [facility] [place] [facility] [address] [facility] [id number] [place] [address] Jan, [facility] [place] [address] [facility] [id number], [place] [id number] Jan, [facility] [place] [facility] [address] [id number] [place] [address] Jan, [facility] [place] [address] [facility] [id number], [place] [id number] Jan, [facility] [place] [facility] [address] [facility] [id number], [place] [address] Jan, [facility] [place] [facility] [address] [facility] [id number] [place] [address] Jan, [facility] [place] [facility] [address] [facility] [id number] [place] [address] Jan, [facility] [place] [facility] [address] [facility] [id number] [place] [address] Jan, [facility] [place] [address] [id number] [place] 234612545 Jan, [facility] [place] [address] [id number] [place] [id number] Jan, [facility] [place] [facility] [address] [facility] [id number] [place] [address] Jan, [facility] [place] [address] [id number] [place] [id number] Jan, [facility] [place] [facility] [address] [facility] [id number], [place] [address] Jan, [facility] [place] [address] [id number] [place] 150999921 Jan, [facility] [place] [facility] [address] [facility] [id number] [place] [address] Jan, [facility] [place] [address] [facility] [id number] [place] [id number] Dec, [facility] [place] [facility] [address], [place] [address] Dec, [facility] [place] [address] [facility] [id number] [place] [id number] Dec, [facility] [place] [facility] [address], [place] [address] Dec, [facility] [place] [address] [facility] [id number] [place] [id number] Dec, [facility] [place] [facility] [address] [facility] [id number], [place] [address] Dec, [facility] [place] [address] [facility] [id number] [place] 320670858 Dec, [facility] [place] [facility] [address] [facility] [id number], [place] [address] Dec, [facility] [place] [address] [facility] [id number] [place] 749235475 Nov, [facility] [place] [facility] [address] [facility] [id number] [place] [address] Nov, [facility] [place] [address] [facility] [id number], [place] [id number] Nov, [facility] [place] [facility] [address] [facility] [id number] [place] [address] Nov, [facility] [place] [facility] [address] [facility] [id number], [place] [address] Nov, [facility] [place] [facility] [address] [facility] [id number], [place] [address] Nov, [facility] [place] [facility] [address] [facility] [id number], [place] [address] Nov, [facility] [place] [facility] [address] [facility] [id number] [place] [address] Nov, [facility] [place] [address] [facility] [id number], [place] 985233977 Oct, [facility] [place] [facility] [address], [place] [address] Oct, [facility] [place] [facility] [address] [facility] [id number], [place] [address] Oct, [facility] [place] [address] [facility] [id number], [place] [id number] Oct, [facility] [place] [facility] [address] [facility] [id number], [place] [address] Oct, [facility] [place] [address] [facility] [id number], [place] 851974141 Oct, [facility] [place] [facility] [address] [facility] [id number], [place] [address] Oct, [facility] [place] [address] [facility] [id number], [place] [id number] Aug, [facility] [place] [facility] [address] [facility] [id number], [place] [address] Aug, [facility] [place] [address] [facility] [id number], [place] 995776359 Jul, [facility] [place] [facility] [address] [facility] [id number], [place] [address] Mar, [facility] [place] [address] [id number] [place] [id number] Mar, [facility] [place] [facility] [address] [facility] [id number], [place] [address] Mar, [facility] [place] [address] [id number] [place] 671197744 Jan, [facility] [place] [address] [id number] [place] 090269381 Sep, [facility] [place] [facility] [address] [facility] [id number], [place] [address] Sep, [facility] [place] [address] [id number] [place] [id number] May, [facility] [place] [address] [id number] [place] 6034035[address] Apr, [facility] [place] [address] [id number] [place] [id number] Mar, [facility] [address] [id number] [place] [id number] Mar, [facility] [address] [id number] [place] [id number] February, [facility] [address] [id number] [place] [id number] Jan, [facility] [id number] [address] Mar, [facility] [id number], [place] [address] Sep, [facility] [address] [facility] [id number], [place] [address] Aug, [facility] [address] [id number] [address] Aug, [facility] [address] [facility] [id number], [place] [address] Aug, [facility] [id number], [place] [address] Aug, [facility] [address] [facility] [id number] [place] [address] Aug, [facility] [address] [facility] [id number], [place] [address] Jul, [facility] [address] [facility] [id number] [place] [address] Apr, IMMUNIZATIONS No Known Immunizations SOCIAL HISTORY Never Assessed REASON FOR VISIT Medication refill request PLAN OF CARE VITAL SIGNS MEDICATIONS Medication Instructions Dosage Frequency Start Date End Date Duration Status Levothyroxine Sodium 88 MCG Orally Once a day 1 tablet on an empty stomach in the morning 24h Active RESULTS No Results PROCEDURES No Known [...]
--- OUTSIDE RECORDS SUMMARY | 2019-04-19 10:31 | XMS REPORT ---
Author Author HILDA WOLF [facility] Address [address] [place] [address] Care Team Providers Care Commercial Driver'S License Driver Name Role Phone HIDLA WOLF Unavailable PROBLEMS Type Condition ICD9-CM Code EOJ09-CM Code Onset Dates Condition Status SNOMED Code Problem Herniated nucleus pulposus M51.9 Active 49137536 Problem OCD (obsessive compulsive disorder) F42 Active 571885327 Problem Anxiety F41.9 Active 71832392 Problem Acquired hypothyroidism E03.9 Active 714423266 Problem Moderate episode of recurrent major depressive disorder F33.1 Active 823938276 Problem Cervicalgia M54.2 Active 13701317 Problem Polyneuropathy G62.9 Active 33357253 Problem Plantar fasciitis M72.2 Active [id number] ALLERGIES No Information ENCOUNTERS Encounter Location Date Diagnosis [facility] [id number] [place] [address] [id number] Jun, [place] [address] [id number] May, Herniated nucleus pulposus M51.9 [place] [id number] [place] [address] [phone] Apr, Herniated nucleus pulposus M51.9 [place] [id number] [place] [address] [phone] Apr, [facility] [id number] [place] [address] [id number] Apr, Acquired hypothyroidism E03.9 [place] [address] [id number] Apr, Acquired hypothyroidism E03.9 [facility] [id number] [place] [address] [phone] Apr, [place] [id number] [place] [address] [id number] Mar, Herniated nucleus pulposus M51.9 and Nodule, subcutaneous R22.9 [place] [id number] [place] [address] [phone] Mar, Herniated nucleus pulposus M51.9 [place] [id number] [place] [address] [id number] February, Herniated nucleus pulposus M51.9 ; Polyneuropathy G62.9 and Anxiety F41.[address] [id number] Jan, Herniated nucleus pulposus M51.9 ; Moderate episode of recurrent major depressive disorder F33.1 and Acquired hypothyroidism E03.[address] [id number] Dec, Herniated nucleus pulposus M51.[address] [id number] Nov, Cervicalgia M54.2 and Herniated nucleus pulposus M51.9 [place] [id number] [place] [address] [id number] Oct, Herniated nucleus pulposus M51.9 and OCD (obsessive compulsive disorder) F42 [place] [id number] [place] [address] [phone] Oct, Herniated nucleus pulposus M51.9 [place] [id number] [place] [address] [phone] Aug, Acquired hypothyroidism E03.9 [place] [id number] [place] [address] [id number] Aug, Herniated nucleus pulposus M51.9 and Acquired hypothyroidism E03.9 [facility] [place] [id number] [place] [address] Aug, [place] [id number] [place] [address] [id number] Jul, Herniated nucleus pulposus M51.9 ; OCD (obsessive compulsive disorder) F42 and Pain of right upper extremity M79.[address] [id number] Jul, Anxiety F41.9 [facility] [address] [id number][place] [id number] Jul, [facility] [id number] [place] [address] [id number] Jun, OCD (obsessive compulsive disorder) F42 ; Herniated nucleus pulposus M51.9 and Acute cystitis with hematuria N30.01 [facility] [id number] [place] [address] [id number] Jun, Anxiety F41.9 [facility] [id number] [place] [address] [phone] Jun, [place] [address] [id number] [place] [address] [id number] May, Acquired hypothyroidism E03.9 [facility] [id number] [place] [address] [id number] May, Polyneuropathy G62.9 ; OCD (obsessive compulsive disorder) F42 ; Herniated nucleus pulposus M51.9 ; Screening for lipid disorders Z13.220 ; Long-term use of high- risk medication Z79.899 and Major depressive disorder, recurrent, moderate F33.1 [facility] [address] [id number] [id number] May, Dental examination Z01.20 [facility] [id number], [place] [id number] May, Herniated nucleus pulposus M51.9 [place] [id number] [place] [address] [id number] May, Herniated nucleus pulposus M51.9 and Anxiety F41.9 [place] [address] [id number], [place] [id number] Apr, Herniated nucleus pulposus M51.9 and Cervicalgia M54.2 [facility] [address] [id number], [place] [id number] Apr, Moderate episode of recurrent major depressive disorder F33.1 [facility] [address] [id number], [place] [id number] Apr, Herniated nucleus pulposus M51.9 [facility] [place] [id number], [place] [id number] Apr, Herniated nucleus pulposus M51.9 [facility] [place] [id number] [place] [address] [id number] Mar, Moderate episode of recurrent major depressive disorder F33.1 [facility] [place] [id number] [place] [address] [id number] Mar, Anxiety F41.9 [facility] [place] [id number] [place] [address] [id number] Mar, [facility] [place] [id number] [place] [address] [phone] Mar, Herniated nucleus pulposus M51.9 and Cervicalgia M54.2 [facility] [place] [id number] [place] [address] [id number] February, Acquired hypothyroidism E03.9 [facility] [place] [id number] [place] [address] [id number] February, Polyneuropathy G62.9 ; Herniated nucleus pulposus M51.9 ; Cervicalgia M54.2 and Acquired hypothyroidism E03.9 [place] [id number] [place] [address] [id number] Jan, [place] [id number] [place] [address] [id number] Jan, Cervicalgia M54.2 and Moderate episode of recurrent major depressive disorder F33.1 [facility] [address] [place] [address] [id number] Dec, Cervicalgia M54.2 and Herniated nucleus pulposus M51.9 [facility] [address] [place] [address] [id number] Nov, Lymph nodes enlarged R59.9 [address] [place] [address] [id number] Oct, Cervicalgia M54.2 [facility] [address]65[address], [place] [address] Sep, Polyneuropathy G62.9 [facility] [address] [place] [id number] [place] [address] [id number] Sep, Cervicalgia M54.2 and Herniated nucleus pulposus M51.9 [facility] [id number] [place] [address] [id number] Aug, Lumbar radiculopathy M54.16 and Spinal stenosis at L4-L5 level M48.06 [facility] [id number] [place] [address] [id number] Aug, Cervicalgia M54.2 and Herniated nucleus pulposus M51.9 [facility] [id number] [place] [address] [id number] Jul, [facility] [id number] [place] [address] [id number] Jun, Cervicalgia M54.2 and Herniated nucleus pulposus M51.9 [facility] [id number] [place] [address] [id number] May, Plantar fasciitis M72.2 [facility] [id number] [place] [address] [id number] May, [place] [id number] [place] [address] [id number] Apr, Screening for lipid disorders Z13.220 ; Long-term use of high-risk medication Z79.899 and Major depressive disorder, recurrent, moderate F33.1 [facility] [id number] [place] [address] [id number] Apr, [place] [id number] [place] [address] [id number] Mar, Herniated nucleus pulposus M51.9 and Cervicalgia M54.2 [facility] [id number] [place] [address] [id number] Mar, Cervicalgia M54.2 and Herniated nucleus pulposus M51.9 [facility] [id number] [place] [address] [id number] February, [facility] [id number] [place] [address] [id number] February, Cervicalgia M54.2 and Herniated nucleus pulposus M51.9 [place] [id number], [place] [id number] Dec, Syncope, unspecified syncope type R55 [place] [id number] [place] [address] [id number] Dec, Cervicalgia M54.2 ; Herniated nucleus pulposus M51.9 and Moderate episode of recurrent major depressive disorder F33.1 [place] [id number] [place] [address] [id number] Dec, [place] [id number] [place] [address] [id number] Dec, Herniated nucleus pulposus M51.9 and Cervicalgia M54.2 [place] [id number] [place] [address] [id number] Nov, [place] [id number] [place] [address] [id number] Nov, Herniated nucleus pulposus M51.9 and OCD (obsessive compulsive disorder) F42 [place] [id number] [place] [address] [id number] Sep, Displacement of intervertebral disc, site unspecified, without myelopathy 722.2 ; Cervicalgia 723.1 and Hypothyroidism, unspecified type E03.9 [address] [place] [address] [id number] Sep, [place] [id number] [place] [address] [id number] Jun, Displacement of intervertebral disc, site unspecified, without myelopathy 722.2 and Cervicalgia 723.1 [address] [place] [address] [id number] Mar, Displacement of intervertebral disc, site unspecified, without myelopathy 722.2 and Shingles 053.9 [address] [place] [address] [id number] February, Shingles 053.9 [place] [id number] [place] [address] [id number] February, Displacement of intervertebral disc, site unspecified, without myelopathy 722.2 ; Tension headache 307.81 and Cervicalgia 723.1 [facility] [place] [address] [id number] [place] [id number] February, [facility] [place] [address] [id number] [place] [id number] February, [facility] [place] [address] [place] [address] [id number] [place] [id number] February, [facility] [address]65[address], [place] [address] Jan, [facility] [place] [facility] [address]65[address], [place] [address] Jan, [facility] [place] [id number], [place] [id number] Jan, [facility] [place] [facility] [address]00565[address], [place] [address] Jan, [facility] [address]00565[address], [place] [address] Jan, [facility] [place] [address] [place] [address] [id number][place] [id number] Dec, [facility] [place] [facility] [address]65[address], [place] [address] Dec, [facility] [place] [address] [id number], [place] [id number] Dec, [facility] [place] [facility] [address]65[address], [place] [address] Dec, [facility] [place] [address] [id number], [place] [id number] Nov, [facility] [place] [facility] [address] [id number] [address] Nov, [facility] [place] [address] [id number], [place] [id number] Oct, [facility] [place] [facility] [address]65[address], [place] [address] Oct, [facility] [place] [id number] [place] [id number] Oct, [facility] [place] [facility] [address] [id number], [place] [address] Oct, [facility] [place] [address] [id number] [place] [id number] Oct, [facility] [place] [address] [id number] [place] [id number] Oct, [facility] [place] [facility] [address] [id number], [place] [address] Oct, [facility] [place] [facility] [address] [id number], [place] [address] Oct, [facility] [place] [address] [id number], [place] [id number] Oct, [facility] [place] [facility] [address]65[address], [place] [address] Oct, [facility] [place] [address] [facility] [id number], [place] [id number] Oct, [facility] [place] [facility] [address] [facility] [id number], [place] [address] Oct, [facility] [place] [address] [id number], [place] [id number] Sep, [facility] [place] [facility] [address] [facility] [id number], [place] [address] Sep, [facility] [place] [address] [id number], [place] [id number] Aug, [facility] [place] [facility] [address] [id number], [place] [address] Aug, [facility] [place] [facility] [address] [facility] [id number], [place] [address] Aug, [facility] [place] [address] [id number], [place] [id number] Aug, [facility] [place] [address] [id number], [place] [id number] Aug, [facility] [place] [facility] [address] [facility] [id number] [place] [address] Aug, [facility] [place] [address] [facility] [id number] [place] [id number] Jul, [facility] [place] [facility] [address] [facility] [id number] [place] [address] Jul, [facility] [place] [address] [facility] [id number] [place] [id number] Jul, [facility] [place] [facility] [address] [facility] [id number], [place] [address] Jul, [facility] [place] [facility] [address] [facility] [id number] [place] [address] Apr, [facility] [place] [address] [facility] [id number], [place] [id number] Apr, [facility] [place] [facility] [address] [facility] [id number], [place] [address] Apr, [facility] [place] [address] [facility] [id number], [place] [id number] Apr, [facility] [place] [facility] [address] [facility] [id number], [place] [address] Apr, [facility] [place] [address] [facility] [id number], [place] [id number] Mar, [facility] [place] [facility] [address] [facility] [id number], [place] [address] Mar, [facility] [place] [address] [facility] [id number], [place] [id number] Mar, [facility] [place] [facility] [address] [facility] [id number], [place] [address] Mar, [facility] [place] [address] [facility] [id number], [place] [id number] February, [facility] [place] [facility] [address] [facility] [id number] [place] [address] February, [facility] [place] [facility] [address] [facility] [id number], [place] [address] February, [facility] [place] [address] [id number] [place] [id number] February, [facility] [place] [facility] [address] [id number] [place] [address] February, [facility] [place] [address] [id number] [place] [id number] February, [facility] [place] [facility] [address] [id number] [place] [address] February, [facility] [place] [facility] [address] [id number] [place] [address] Jan, [facility] [place] [facility] [address] [facility] [id number] [place] [address] Jan, [facility] [place] [facility] [address] [id number] [place] [address] Jan, [facility] [place] [address] [facility] [id number] [place] [id number] Jan, [facility] [place] [facility] [address] [facility] [id number] [place] [address] Jan, [facility] [place] [address] [facility] [id number], [place] [id number] Jan, [facility] [place] [facility] [id number] [place] [address] Jan, [facility] [place] [address] [facility] [id number][place] [id number] Jan, [facility] [place] [facility] [address] [facility] [id number], [place] [address] Jan, [facility] [place] [facility] [address] [facility] [id number] [place] [address] Jan, [facility] [place] [facility] [address] [facility] [id number] [place] [address] Jan, [facility] [place] [facility] [address] [facility] [id number] [place] [address] Jan, [facility] [place] [address] [id number] [place] [id number] Jan, [facility] [place] [address] [id number] [place] [id number] Jan, [facility] [place] [facility] [address] [facility] [id number] [place] [address] Jan, [facility] [place] [address] [id number] [place] [id number] Jan, [facility] [place] [facility] [address] [facility] [id number], [place] [address] Jan, [facility] [place] [address] [id number] [place] [id number] Jan, [facility] [place] [facility] [address] [facility] [id number] [place] [address] Jan, [facility] [place] [address] [facility] [id number] [place] [address] Dec, [facility] [place] [facility] [address]65[address], [place] [address] Dec, [facility] [place] [address] [facility] [id number] [place] [id number] Dec, [facility] [place] [facility] [address]65[address], [place] [address] Dec, [facility] [place] [address] [facility] [id number] [place] [id number] Dec, [facility] [place] [facility] [address] [facility] [id number], [place] [address] Dec, [facility] [place] [address] [facility] [id number] [place] [id number] Dec, [facility] [place] [facility] [address] [facility] [id number], [place] [address] Dec, [facility] [place] [address] [facility] [id number] [place] [id number] Nov, [facility] [place] [facility] [address] [facility] [id number] [place] [address] Nov, [facility] [place] [address] [facility] [id number], [place] [address]54[address] Nov, [facility] [place] [facility] [address] [facility] [id number] [place] [address] Nov, [facility] [place] [facility] [address] [facility] [id number], [place] [address] Nov, [facility] [place] [facility] [address] [facility] [id number], [place] [address] Nov, [facility] [place] [facility] [address] [facility] [id number], [place] [address] Nov, [facility] [place] [facility] [address] [facility] [id number] [place] [address] Nov, [facility] [place] [address] [facility] [id number], [place] 377[address]25[address] Oct, [facility] [place] [facility] [address]65[address], [place] [address] Oct, [facility] [place] [facility] [address] [facility] [id number], [place] [address] Oct, [facility] [place] [address] [facility] [id number], [place] [id number] Oct, [facility] [place] [facility] [address] [facility] [id number], [place] [address] Oct, [facility] [place] [address] [facility] [id number], [place] [id number] Oct, [facility] [place] [facility] [address] [facility] [id number], [place] [address] Oct, [facility] [place] [address] [facility] [id number], [place] 86[address] Aug, [facility] [place] [facility] [address] [facility] [id number], [place] [address] Aug, [facility] [place] [address] [facility] [id number], [place] [address] Jul, [facility] [place] [facility] [address] [facility] [id number], [place] [address] Mar, [facility] [place] [address] [id number] [place] [id number] Mar, [facility] [place] [facility] [address] [facility] [id number], [place] [address] Mar, [facility] [place] [address] [id number] [place] [id number] Jan, [facility] [place] [address] [id number] [place] [address] Sep, [facility] [place] [facility] [address] [facility] [id number], [place] [address] Sep, [facility] [place] [address] [id number] [place] [id number] May, [facility] [address] [id number] [place] [id number] Apr, [facility] [address] [id number] [place] [id number] Mar, [facility] [address] [id number] [place] [id number] Mar, [facility] [address] [id number] [place] [id number] February, [facility] [address] [id number] [place] [id number] Jan, [facility] [id number] [address] Mar, [facility] [id number], [place] [address] Sep, [facility] [address] [facility] [id number], [place] [address] Aug, [facility] [address] [id number] [address] Aug, [facility] [address] [facility] [id number], [place] [address] Aug, [facility] [id number], [place] [address] Aug, [facility] [place] [address] [facility] [id number] [place] [address] Aug, [facility] [place] [address] [facility] [id number], [place] [address] Jul, [facility] [place] [address] [facility] [id number] [place] [address] Apr, IMMUNIZATIONS No Known Immunizations SOCIAL HISTORY Never Assessed REASON FOR VISIT Lab (walk-in)---ARLENE paez PLAN OF CARE VITAL SIGNS MEDICATIONS Unknown Medications RESULTS No Results PROCEDURES Procedure Date Ordered Result Body Site LAB NOT BILLED BY [facility] April 19, 2018 VENIPUNCT, ROUTINE* April 19, 2018 INSTRUCTIONS MEDICATIONS ADMINISTERED No Known Medications MEDICAL [...]
--- OUTSIDE RECORDS SUMMARY | 2019-04-19 10:32 | XMS REPORT ---
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 Name Role Phone HILDA WOLF Unavailable PROBLEMS Type Condition ICD9-CM Code UCK18-HR Code Onset Dates Condition Status SNOMED Code Problem Herniated nucleus pulposus M51.9 Active 61393737 Problem OCD (obsessive compulsive disorder) F42 Active 276092252 Problem Anxiety F41.9 Active 01259695 Problem Acquired hypothyroidism E03.9 Active 987726494 Problem Moderate episode of recurrent major depressive disorder F33.1 Active 062198102 Problem Cervicalgia M54.2 Active 46037406 Problem Polyneuropathy G62.9 Active 57601937 Problem Plantar fasciitis M72.2 Active 396047889 ALLERGIES Substance Reaction Event Type Date Status Nortriptyline HCl headache, night fu Drug Allergy February, Active Lamictal hives Drug Allergy February, Active Clindamycin HCl hives Drug Allergy February, Active Latex hives Non Drug Allergy February, Active ENCOUNTERS Encounter Location Date Diagnosis [facility] [id number] [place] [address] [id number] Apr, Herniated nucleus pulposus M51.9 [place] [id number] [place] [address] [id number] Apr, [facility] [id number] [place] [address] [id number] Apr, Acquired hypothyroidism E03.9 [place] [address] [place] [id number] [place] [address] [id number] Apr, Acquired hypothyroidism E03.9 [place] [id number] [place] [address] [id number] Apr, [place] [id number] [place] [address] [id number] Mar, Herniated nucleus pulposus M51.9 and Nodule, subcutaneous R22.[id number] [place] [address] [id number] Mar, Herniated nucleus pulposus M51.9 [place] [id number] [place] [address] [id number] February, Herniated nucleus pulposus M51.9 ; Polyneuropathy G62.9 and Anxiety F41.[address] [id number] Jan, Herniated nucleus pulposus M51.9 ; Moderate episode of recurrent major depressive disorder F33.1 and Acquired hypothyroidism E03.9 [place] [id number] [place] [address] [id number] Dec, Herniated nucleus pulposus M51.[address] [id number] Nov, Cervicalgia M54.2 and Herniated nucleus pulposus M51.9 [place] [id number] [place] [address] [id number] Oct, Herniated nucleus pulposus M51.9 and OCD (obsessive compulsive disorder) F42 [place] [id number] [place] [address] [id number] Oct, Herniated nucleus pulposus M51.9 [place] [id number] [place] [address] [id number] Aug, Acquired hypothyroidism E03.9 [place] [id number] [place] [address] [id number] Aug, Herniated nucleus pulposus M51.9 and Acquired hypothyroidism E03.9 [facility] [id number] [address] Aug, [place] [id number] [place] [address] [id number] Jul, Herniated nucleus pulposus M51.9 ; OCD (obsessive compulsive disorder) F42 and Pain of right upper extremity M79.601 [place] [id number] [place] [address] [id number] Jul, Anxiety F41.9 [facility] [id number] [id number] Jul, [facility] [id number] [place] [address] [id number] Jun, OCD (obsessive compulsive disorder) F42 ; Herniated nucleus pulposus M51.9 and Acute cystitis with hematuria N30.01 [facility] [id number] [place] [address] [id number] Jun, Anxiety F41.9 [facility] [id number] [place] [address] [id number] Jun, [place] [id number] [place] [address] [id number] May, Acquired hypothyroidism E03.9 [place] [id number] [place] [address] [id number] May, Polyneuropathy G62.9 ; OCD (obsessive compulsive disorder) F42 ; Herniated nucleus pulposus M51.9 ; Screening for lipid disorders Z13.220 ; Long-term use of high- risk medication Z79.899 and Major depressive disorder, recurrent, moderate F33.1 [facility] [address] [id number] [place] [id number] May, Dental examination Z01.20 [facility] [id number] [id number] May, Herniated nucleus pulposus M51.[id number] [place] [address] [id number] May, Herniated nucleus pulposus M51.9 and Anxiety F41.9 [place] [id number] [phone] Apr, Herniated nucleus pulposus M51.9 and Cervicalgia M54.2 [place] [id number] [place] [address] [id number] Apr, Moderate episode of recurrent major depressive disorder F33.1 [facility] [id number] [id number] Apr, Herniated nucleus pulposus M51.9 [facility] [id number] [place] [address] [id number] Apr, Herniated nucleus pulposus M51.9 [facility] [place] [id number] [place] [address] [id number] Mar, Moderate episode of recurrent major depressive disorder F33.1 [facility] [place] [id number] [place] [address] [id number] Mar, Anxiety F41.9 [facility] [place] [address] [id number] [place] [address] [id number] Mar, [facility] [place] [id number] [place] [address] [id number] Mar, Herniated nucleus pulposus M51.9 and Cervicalgia M54.2 [facility] [place] [address] [address] [id number] [place] [address] [id number] February, Acquired hypothyroidism E03.9 [place] [id number] [place] [address] [id number] February, Polyneuropathy G62.9 ; Herniated nucleus pulposus M51.9 ; Cervicalgia M54.2 and Acquired hypothyroidism E03.[id number] [place] [address] [id number] Jan, [place] [id number] [place] [address] [id number] Jan, Cervicalgia M54.2 and Moderate episode of recurrent major depressive disorder F33.1 [facility] [place] [id number] [place] [address] [id number] Dec, Cervicalgia M54.2 and Herniated nucleus pulposus M51.9 [facility] [address] [place] [address] [phone] Nov, Lymph nodes enlarged R59.9 [place] [id number] [place] [address] [id number] Oct, Cervicalgia M54.2 [facility] [address] [address] Sep, Polyneuropathy G62.9 [place] [id number] [place] [id number] Sep, Cervicalgia M54.2 and Herniated nucleus pulposus M51.9 [facility] [address] [id number] [place] [address] [id number] Aug, Lumbar radiculopathy M54.16 and Spinal stenosis at L4-L5 level M48.06 [facility] [address] [id number] [place] [address] [id number] Aug, Cervicalgia M54.2 and Herniated nucleus pulposus M51.9 [facility] [address] [id number] [place] [address] [id number] Jul, [facility] [address] [id number] [place] [address] [id number] Jun, Cervicalgia M54.2 and Herniated nucleus pulposus M51.9 [facility] [id number] [place] [address] [id number] May, Plantar fasciitis M72.2 [facility] [address] [address] [id number] [place] [address] [id number] May, [facility] [address] [place] [address] [id number] [place] [address] [id number] Apr, Screening for lipid disorders Z13.220 ; Long-term use of high-risk medication Z79.899 and Major depressive disorder, recurrent, moderate F33.1 [facility] [id number] [place] [address] [id number] Apr, [facility] [address] [place] [id number] [place] [address] [id number] Mar, Herniated nucleus pulposus M51.9 and Cervicalgia M54.2 [facility] [id number] [place] [address] [id number] Mar, Cervicalgia M54.2 and Herniated nucleus pulposus M51.9 [facility] [address] [id number] [place] [address] [id number] February, [facility] [address] [id number] [place] [address] [id number] February, Cervicalgia M54.2 and Herniated nucleus pulposus M51.9 [address] [place] [id number] Dec, Syncope, unspecified syncope type R55 [place] [id number] [place] [address] [id number] Dec, Cervicalgia M54.2 ; Herniated nucleus pulposus M51.9 and Moderate episode of recurrent major depressive disorder F33.1 [place] [id number] [place] [address] [id number] Dec, [address] [id number] Dec, Herniated nucleus pulposus M51.9 and Cervicalgia M54.[address] [id number] Nov, [address] [id number] Nov, Herniated nucleus pulposus M51.9 and OCD (obsessive compulsive disorder) F42 [place] [id number] [place] [address] [id number] Sep, Displacement of intervertebral disc, site unspecified, without myelopathy 722.2 ; Cervicalgia 723.1 and Hypothyroidism, unspecified type E03.[address] [place] [address] [id number] Sep, [address] [id number] Jun, Displacement of intervertebral disc, site unspecified, without myelopathy 722.2 and Cervicalgia 723.1 [place] [id number] [place] [address] [id number] Mar, Displacement of intervertebral disc, site unspecified, without myelopathy 722.2 and Shingles 053.9 [place] [id number] [place] [address] [id number] February, Shingles 053.9 [place] [id number] [place] [address] [id number] February, Displacement of intervertebral disc, site unspecified, without myelopathy 722.2 ; Tension headache 307.81 and Cervicalgia 723.[address] [facility] [address] [facility] [id number] [place] [id number] February, [facility] [address] [id number] [place] [id number] February, [facility] [address] [facility] [id number] [place]ANE[place] [id number] February, [facility] [address] [place] [id number] [place] [address] Jan, [facility] [place] [facility] [address] [facility] [id number] [place] [address] Jan, [facility] [id number] [place] [address] [id number] Jan, [facility] [place] [facility] [address] [place] [address] Jan, [facility] [place] [facility] [address] [place] [address] Jan, [facility] [place] [address] [place] [id number] [place] [id number] Dec, [facility] [place] [facility] [address] [place] [address] Dec, [facility] [place] [address] [place] [id number] [place]ANE[place] [id number] Dec, [facility] [place] [facility] [address] [place] [id number] [place] [address] Dec, [facility] [place] [address] [place] [address] [id number] [place]ANE[place] [id number] Nov, [facility] [place] [facility] [address] [place] [id number] [place] [address] Nov, [facility] [place] [address] [place] [id number] [place]ANE[place] [id number] Oct, [facility] [place] [facility] [address] [place] [address] Oct, [facility] [id number] [place] [id number] Oct, [facility] [place] [facility] [address] [id number] [place] [address] Oct, [facility] [address] [id number] [place] [id number] Oct, [facility] [address] [id number] [place] [id number] Oct, [facility] [place] [facility] [address] [id number] [place] [address] Oct, [facility] [place] [facility] [address] [facility] [id number] [place] [address] Oct, [facility] [place] [address] [id number] [place] [id number] Oct, [facility] [place] [facility] [address] [place] [id number] [place] [address] Oct, [facility] [place] [address] [facility] [id number] [place]ANE[place] [id number] Oct, [facility] [place] [facility] [address] [facility] [id number] [place] [address] Oct, [facility] [address] [facility] [id number] [place] [id number] Sep, [facility] [place] [facility] [address] [facility] [id number] [place] [address] Sep, [facility] [place] [address] [id number] [place] [id number] Aug, [facility] [place] [facility] [address] [facility] [id number] [place] [address] Aug, [facility] [place] [facility] [address] [facility] [id number] [place] [address] Aug, [facility] [address] [id number] [place] [id number] Aug, [facility] [address] [id number] [place] [address]57[address] Aug, [facility] [place] [facility] [address] [facility] [id number] [place] [address] Aug, [facility] [address] [id number] [place] [id number] Jul, [facility] [place] [facility] [address] [facility] [id number] [place] [address] Jul, [facility] [address] [facility] [id number] [place] [id number] Jul, [facility] [place] [facility] [address] [facility] [id number] [place] [address] Jul, [facility] [place] [facility] [address] [facility] [id number] [place] [address] Apr, [facility] [address] [facility] [id number] [place] 632[address] Apr, [facility] [place] [facility] [address] [facility] [id number] [place] [address] Apr, [facility] [address] [facility] [id number] LANE, [place] 505[address] Apr, [facility] [place] [facility] [address] [facility] [id number] [place] [address] Apr, [facility] [address] [facility] [id number] [place]ANE[place] [address] Mar, [facility] [place] [facility] [address] [facility] [id number] [place] [address] Mar, [facility] [address] [facility] [id number] [place]ANE[place] 8239[address] Mar, [facility] [place] [facility] [address] [facility] [id number] [place] [address] Mar, [facility] [address] [facility] [id number] LANE[place] 6[address] February, [facility] [place] [facility] [address] [facility] [id number] [place] [address] February, [facility] [place] [facility] [address] [facility] [id number] [place] [address] February, [facility] [address] [id number] [place] [id number] February, [facility] [place] [facility] [address] [facility] [id number] [place] [address] February, [facility] [address] [facility] [id number] LANE[place] [id number] February, [facility] [place] [facility] [address] [facility] [id number] [place] [address] February, [facility] [place] [facility] [address] [facility] [id number] [place] [address] Jan, [facility] [place] [facility] [address] [facility] [id number] [place] [address] Jan, [facility] [place] [facility] [address] [place] [id number] [address] Jan, [facility] [address] [place] [address] [id number] [place]ANE[place] 580[address]2437 Jan, [facility] [place] [facility] [address] [place] [address] Jan, [facility] [address] [facility] [id number] [place]ANE[place] 0514[address] Jan, [facility] [place] [facility] [address] [place] [address] Jan, [facility] [place] [address] [place] [address] [id number] [place]ANE[place] [address] Jan, [facility] [place] [facility] [address] [facility] [id number] [place] [address] Jan, [facility] [place] [facility] [address] [facility] [id number] [place] [address] Jan, [facility] [place] [facility] [address] [facility] [id number] [place] [address] Jan, [facility] [place] [facility] [address] [facility] [id number] [place] [address] Jan, [facility] [address] [facility] [id number] [place]ANE[place] 8[address] Jan, [facility] [address] [id number] [place] [id number] Jan, [facility] [address] [facility] [id number] [place] [address] Jan, [facility] [address] [id number] [place] [id number] Jan, [facility] [address] [facility] [id number] [place] [address] Jan, [facility] [address] [id number] [place] [id number] Jan, [facility] [place] [facility] [address] [facility] [id number] [place] [address] Jan, [facility] [address] [facility] [id number] [place] 95084[address] Dec, [facility] [address] [place] [address] Dec, [facility] [address] [facility] [id number] [place]ANE[place] [address]46[address] Dec, [facility] [address] [place] [address] Dec, [facility] [address] [facility] [id number] [place]ANE, [place] 490[address]8423 Dec, [facility] [address] [facility] [id number] [place] [address] Dec, [facility] [address] [facility] [id number] [place]ANE[place] [id number] Dec, [facility] [place] [facility] [address] [facility] [id number] [place] [address] Dec, [facility] [address] [facility] [id number] [place] 56[address] Nov, [facility] [place] [facility] [address] [facility] [id number] [place] [address] Nov, [facility] [address] [facility] [id number] [place]ANE[place] 7201917[address] Nov, [facility] [place] [facility] [address] [facility] [id number] [place] [address] Nov, [facility] [place] [facility] [address] [facility] [id number] [place] [address] Nov, [facility] [place] [facility] [address] [facility] [id number] [place] [address] Nov, [facility] [place] [facility] [address] [facility] [id number] [place] [address] Nov, [facility] [place] [facility] [address] [facility] [id number] [place] [address] Nov, [facility] [address] [facility] [id number] [place]ANE, [place] 193580594 Oct, [facility] [place] [facility] [address] [facility] [id number] [place] [address] Oct, [facility] [place] [facility] [address] [facility] [id number] [place] [address] Oct, [facility] [address] [facility] [id number] [place]ANE[place] [id number] Oct, [facility] [place] [facility] [address] [facility] [id number] [place] [address] Oct, [facility] [address] [facility] [id number] [place]ANE[place] 144466991 Oct, [facility] [place] [facility] [address] [facility] [id number] [place] [address] Oct, [facility] [address] [facility] [id number] [place]ANE[place] 39[address] Aug, [facility] [place] [facility] [address] [facility] [id number] [place] [address] Aug, [facility] [address] [facility] [id number] [place]ANE[place] [id number] Jul, [facility] [place] [facility] [address] [facility] [id number] [place] [address] Mar, [facility] [address] [id number] [place] [id number] Mar, [facility] [place] [facility] [address] [facility] [id number] [place] [address] Mar, [facility] [address] [id number] [place] [id number] Jan, [facility] [address] [id number] [place] 82[address] Sep, [facility] [place] [facility] [address] [facility] [id number] [place] [address] Sep, [facility] [address] [id number] [place] [id number] May, [facility] [address] [id number] [place] [id number] Apr, [facility] [address] [id number] [place] [id number] Mar, [facility] [address] [id number] [place] [id number] Mar, [facility] [address] [id number] [place] [id number] February, [facility] [address] [id number] [place] [id number] Jan, [facility] [address] [id number] [place] [address] Mar, [facility] [id number] [place] [address] Sep, [facility] [address] [id number] [place] [address] Aug, [facility] [address] [id number] [place] [address] Aug, [facility] [address] [id number] [place] [address] Aug, [facility] [id number] [place] [address] Aug, [facility] [address] [id number] [place] [address] Aug, [facility] [address] [id number] [place] [address] Jul, [facility] [address] [id number] [place] [address] Apr, IMMUNIZATIONS No Known Immunizations SOCIAL HISTORY Never Assessed REASON FOR VISIT Pain management (chronic) Brendon MATUTE PLAN OF CARE Activity Details Follow Up prn Reason: VITAL SIGNS Height 66 in 2018-02-07 Weight 220 lbs 2018-02-07 Temperature 97.8 degrees Fahrenheit 2018-02-07 Heart Rate 78 bpm 2018-02-07 Respiratory Rate 16 2018-02-07 BMI 35.51 kg/m2 2018-02-07 Blood pressure systolic 128 mmHg 2018-02-07 Blood pressure diastolic 70 mmHg 2018-02-07 MEDICATIONS Medication Instructions Dosage Frequency Start Date End Date Duration Status Baclofen 10 mg Orally Three times a day 1 tablet with food or milk 8h Active Clonazepam 0.5 MG Orally Twice a day prn .5-1 tablet Mar, Active Lidoderm 5 %(700 mg/patch) Externally Once a day 1 patch ea left and right upper back x 12 hours then remove patches for 12 hours 24h Active Gabapentin 600 MG Orally 3 times a day 2 am 1.5 midday 2 hs 8h Active Phenergan 25 mg oral 3 times a day 1 tablet 8h May, Active Hydrocodone-Acetaminophen 5-325 MG Orally 3 times a day must last 28 days 1- 2 tablet as needed February, Active Walker - as directed w seat Jun, Active Omeprazole 20 mg Orally Once a day 1 capsules 24h Aug, Active TENS Unit device Use as directed Mar, Active Levothyroxine Sodium 88 MCG Orally Once a day 1 tablet on an empty stomach in the morning 24h Active Fluvoxamine Maleate 50 mg Orally Once a day 1 tablet at bedtime 24h May, Active HydrOXYzine HCl 50 MG take 1 tablet by Oral route 1 time per day PRN itching Active Voltaren 1 % Transdermal 4 times a day as directed 6h Mar, Active RESULTS No Results PROCEDURES No Known [...]
--- OUTSIDE RECORDS SUMMARY | 2019-04-19 10:32 | XMS REPORT ---
Author Author HILDA WOLF 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 Name Role Phone HILDA WOLF Unavailable PROBLEMS Type Condition ICD9-CM Code KQN62-EP Code Onset Dates Condition Status SNOMED Code Problem Herniated nucleus pulposus M51.9 Active 66495053 Problem OCD (obsessive compulsive disorder) F42 Active 386664845 Problem Anxiety F41.9 Active 99830555 Problem Acquired hypothyroidism E03.9 Active 168421487 Problem Moderate episode of recurrent major depressive disorder F33.1 Active 723791207 Problem Cervicalgia M54.2 Active 19266034 Problem Polyneuropathy G62.9 Active 97971794 Problem Plantar fasciitis M72.2 Active [id number] ALLERGIES No Information ENCOUNTERS Encounter Location Date Diagnosis [facility] [id number] [place] [address] [id number] Jun, [place] [address] [id number] May, Herniated nucleus pulposus M51.9 [place] [id number] [place] [address] [id number] Apr, Herniated nucleus pulposus M51.9 [place] [id number] [place] [address] [id number] Apr, [facility] [id number] [place] [address] [id number] Apr, Acquired hypothyroidism E03.9 [place] [address] [id number] Apr, Acquired hypothyroidism E03.9 [facility] [id number] [place] [address] [id number] Apr, [place] [id number] [place] [address] [id number] Mar, Herniated nucleus pulposus M51.9 and Nodule, subcutaneous R22.9 [place] [id number] [place] [address] [id number] Mar, Herniated nucleus pulposus M51.9 [place] [id number] [place] [address] [id number] February, Herniated nucleus pulposus M51.9 ; Polyneuropathy G62.9 and Anxiety F41.[address] [id number] Jan, Herniated nucleus pulposus M51.9 ; Moderate episode of recurrent major depressive disorder F33.1 and Acquired hypothyroidism E03.[address] [id number] Dec, Herniated nucleus pulposus M51.[address] [id number] Nov, Cervicalgia M54.2 and Herniated nucleus pulposus M51.9 [place] [id number] [place] [address] [id number] Oct, Herniated nucleus pulposus M51.9 and OCD (obsessive compulsive disorder) F42 [place] [id number] [place] [address] [id number] Oct, Herniated nucleus pulposus M51.9 [place] [id number] [place] [address] [id number] Aug, Acquired hypothyroidism E03.9 [place] [id number] [place] [address] [id number] Aug, Herniated nucleus pulposus M51.9 and Acquired hypothyroidism E03.9 [facility] [address] [place] [address] Aug, [place] [id number] [place] [address] [id number] Jul, Herniated nucleus pulposus M51.9 ; OCD (obsessive compulsive disorder) F42 and Pain of right upper extremity M79.[address] [id number] Jul, Anxiety F41.9 [facility] [address] [id number][place] [id number] Jul, [facility] [id number] [place] [address] [id number] Jun, OCD (obsessive compulsive disorder) F42 ; Herniated nucleus pulposus M51.9 and Acute cystitis with hematuria N30.01 [facility] [id number] [place] [address] [id number] Jun, Anxiety F41.9 [facility] [address] [id number], [place] [id number] Jun, [place] [id number] [place] [address] [id number] May, Acquired hypothyroidism E03.9 [facility] [id number] [place] [address] [id number] May, Polyneuropathy G62.9 ; OCD (obsessive compulsive disorder) F42 ; Screening for lipid disorders Z13.220 ; Herniated nucleus pulposus M51.9 ; Long-term use of high-risk medication Z79.899 and Major depressive disorder, recurrent, moderate F33.1 [facility] [address] [id number] [id number] May, Dental examination Z01.20 [facility] [id number], [place] [id number] May, Herniated nucleus pulposus M51.9 [place] [id number] [place] [address] [id number] May, Herniated nucleus pulposus M51.9 and Anxiety F41.9 [place] [address] [id number], [place] [id number] Apr, Herniated nucleus pulposus M51.9 and Cervicalgia M54.2 [facility] [address] [id number], [place] [id number] Apr, Moderate episode of recurrent major depressive disorder F33.1 [facility] [address] [id number], [place] [id number] Apr, Herniated nucleus pulposus M51.9 [facility] [place] [id number], [place] [id number] Apr, Herniated nucleus pulposus M51.9 [facility] [place] [id number] [place] [address] [id number] Mar, Moderate episode of recurrent major depressive disorder F33.1 [facility] [place] [id number] [place] [address] [id number] Mar, Anxiety F41.9 [facility] [place] [id number] [place] [address] [id number] Mar, [facility] [place] [id number] [place] [address] [id number] Mar, Herniated nucleus pulposus M51.9 and Cervicalgia M54.2 [facility] [place] [address] [place] [id number] [place] [address] [id number] February, Acquired hypothyroidism E03.9 [facility] [place] [id number] [place] [address] [id number] February, Polyneuropathy G62.9 ; Herniated nucleus pulposus M51.9 ; Cervicalgia M54.2 and Acquired hypothyroidism E03.9 [place] [id number] [place] [address] [id number] Jan, [place] [id number] [place] [address] [id number] Jan, Cervicalgia M54.2 and Moderate episode of recurrent major depressive disorder F33.1 [facility] [address] [place] [address] [id number] Dec, Cervicalgia M54.2 and Herniated nucleus pulposus M51.9 [facility] [address] [place] [address] [id number] Nov, Lymph nodes enlarged R59.9 [address] [place] [address] [id number] Oct, Cervicalgia M54.2 [facility] [address], [place] [address] Sep, Polyneuropathy G62.9 [facility] [address] [place] [id number] [place] [address] [id number] Sep, Cervicalgia M54.2 and Herniated nucleus pulposus M51.9 [facility] [id number] [place] [address] [id number] Aug, Lumbar radiculopathy M54.16 and Spinal stenosis at L4-L5 level M48.06 [facility] [id number] [place] [address] [id number] Aug, Cervicalgia M54.2 and Herniated nucleus pulposus M51.9 [facility] [id number] [place] [address] [id number] Jul, [facility] [id number] [place] [address] [id number] Jun, Cervicalgia M54.2 and Herniated nucleus pulposus M51.9 [facility] [id number] [place] [address] [id number] May, Plantar fasciitis M72.2 [facility] [id number] [place] [address] [id number] May, [place] [id number] [place] [address] [id number] Apr, Screening for lipid disorders Z13.220 ; Long-term use of high-risk medication Z79.899 and Major depressive disorder, recurrent, moderate F33.1 [facility] [id number] [place] [address] [id number] Apr, [place] [id number] [place] [address] [id number] Mar, Herniated nucleus pulposus M51.9 and Cervicalgia M54.2 [facility] [id number] [place] [address] [id number] Mar, Cervicalgia M54.2 and Herniated nucleus pulposus M51.9 [facility] [id number] [place] [address] [id number] February, [facility] [id number] [place] [address] [id number] February, Cervicalgia M54.2 and Herniated nucleus pulposus M51.9 [place] [id number], [place] 079834315 Dec, Syncope, unspecified syncope type R55 [place] [id number] [place] [address] [id number] Dec, Cervicalgia M54.2 ; Herniated nucleus pulposus M51.9 and Moderate episode of recurrent major depressive disorder F33.1 [place] [id number] [place] [address] [id number] Dec, [place] [id number] [place] [address] [id number] Dec, Herniated nucleus pulposus M51.9 and Cervicalgia M54.2 [place] [id number] [place] [address] [id number] Nov, [place] [id number] [place] [address] [id number] Nov, Herniated nucleus pulposus M51.9 and OCD (obsessive compulsive disorder) F42 [place] [id number] [place] [address] [id number] Sep, Displacement of intervertebral disc, site unspecified, without myelopathy 722.2 ; Cervicalgia 723.1 and Hypothyroidism, unspecified type E03.9 [address] [place] [address] [id number] Sep, [place] [id number] [place] [address] [id number] Jun, Displacement of intervertebral disc, site unspecified, without myelopathy 722.2 and Cervicalgia 723.1 [address] [place] [address] [id number] Mar, Displacement of intervertebral disc, site unspecified, without myelopathy 722.2 and Shingles 053.9 [address] [place] [address] [id number] February, Shingles 053.9 [place] [id number] [place] [address] [id number] February, Displacement of intervertebral disc, site unspecified, without myelopathy 722.2 ; Tension headache 307.81 and Cervicalgia 723.1 [facility] [place] [address] [id number] [place] [id number] February, [facility] [address] [id number] [place] [id number] February, [facility] [address] [place] [address] [id number] [place] [id number] February, [facility] [address], [place] [address] Jan, [facility] [place] [facility] [address], [place] [address] Jan, [facility] [id number], [place] [id number] Jan, [facility] [place] [facility] [address], [place] [address] Jan, [facility] [address], [place] [address] Jan, [facility] [place] [address] [id number], [place] [id number] Dec, [facility] [place] [facility] [address], [place] [address] Dec, [facility] [address] [id number], [place] [id number] Dec, [facility] [place] [facility] [address], [place] [address] Dec, [facility] [address] [id number], [place] [id number] Nov, [facility] [place] [facility] [address] [id number] [address] Nov, [facility] [address] [id number], [place] [id number] Oct, [facility] [place] [facility] [address], [place] [address] Oct, [facility] [id number] [place] [id number] Oct, [facility] [place] [facility] [address] [id number], [place] [address] Oct, [facility] [address] [id number] [place] [id number] Oct, [facility] [address] [id number] [place] [id number] Oct, [facility] [place] [facility] [address] [id number], [place] [address] Oct, [facility] [place] [facility] [address] [id number], [place] [address] Oct, [facility] [place] [address] [id number], [place] [id number] Oct, [facility] [place] [facility] [address], [place] [address] Oct, [facility] [place] [address] [facility] [id number], [place] [id number] Oct, [facility] [place] [facility] [address] [facility] [id number], [place] [address] Oct, [facility] [address] [id number], [place] [id number] Sep, [facility] [place] [facility] [address] [facility] [id number], [place] [address] Sep, [facility] [address] [id number], [place] [id number] Aug, [facility] [place] [facility] [address] [id number], [place] [address] Aug, [facility] [place] [facility] [address] [facility] [id number], [place] [address] Aug, [facility] [address] [id number], [place] [id number] Aug, [facility] [address] [id number], [place] [id number] Aug, [facility] [place] [facility] [address] [facility] [id number] [place] [address] Aug, [facility] [address] [facility] [id number] [place] [id number] Jul, [facility] [place] [facility] [address] [facility] [id number] [place] [address] Jul, [facility] [address] [facility] [id number] [place] [id number] Jul, [facility] [place] [facility] [address] [facility] [id number], [place] [address] Jul, [facility] [place] [facility] [address] [facility] [id number] [place] [address] Apr, [facility] [address] [facility] [id number], [place] 790440053 Apr, [facility] [place] [facility] [address] [facility] [id number], [place] [address] Apr, [facility] [address] [facility] [id number], [place] [id number] Apr, [facility] [place] [facility] [address] [facility] [id number], [place] [address] Apr, [facility] [address] [facility] [id number], [place] 194040452 Mar, [facility] [place] [facility] [address] [facility] [id number], [place] [address] Mar, [facility] [address] [facility] [id number], [place] [id number] Mar, [facility] [place] [facility] [address] [facility] [id number], [place] [address] Mar, [facility] [address] [facility] [id number], [place] [id number] February, [facility] [place] [facility] [address] [facility] [id number] [place] [address] February, [facility] [place] [facility] [address] [facility] [id number], [place] [address] February, [facility] [address] [id number] [place] [id number] February, [facility] [place] [facility] [address] [id number] [place] [address] February, [facility] [address] [id number] [place] 764358529 February, [facility] [place] [facility] [address] [id number] [place] [address] February, [facility] [place] [facility] [address] [id number] [place] [address] Jan, [facility] [place] [facility] [address] [facility] [id number] [place] [address] Jan, [facility] [place] [facility] [id number] [address] Jan, [facility] [place] [address] [facility] [id number] [place] [id number] Jan, [facility] [place] [facility] [address] [facility] [id number] [place] [address] Jan, [facility] [place] [address] [facility] [id number], [place] 739510811 Jan, [facility] [place] [facility] [id number] [address] Jan, [facility] [place] [address] [facility] [id number], [place] [id number] Jan, [facility] [place] [facility] [address] [facility] [id number], [place] [address] Jan, [facility] [place] [facility] [address] [facility] [id number] [place] [address] Jan, [facility] [place] [facility] [address] [facility] [id number] [place] [address] Jan, [facility] [place] [facility] [address] [facility] [id number] [place] [address] Jan, [facility] [address] [id number] [place] 900422262 Jan, [facility] [address] [id number] [place] 839654981 Jan, [facility] [place] [facility] [address] [facility] [id number] [place] [address] Jan, [facility] [address] [id number] [place] 024509090 Jan, [facility] [place] [facility] [address] [facility] [id number], [place] [address] Jan, [facility] [address] [id number] [place] [id number] Jan, [facility] [place] [facility] [address] [facility] [id number] [place] [address] Jan, [facility] [address] [facility] [id number] [place] 049472747 Dec, [facility] [place] [facility] [address], [place] [address] Dec, [facility] [address] [facility] [id number] [place] [id number] Dec, [facility] [place] [facility] [address], [place] [address] Dec, [facility] [address] [facility] [id number] [place] 564499621 Dec, [facility] [place] [facility] [address] [facility] [id number], [place] [address] Dec, [facility] [address] [facility] [id number] [place] 216725461 Dec, [facility] [place] [facility] [address] [facility] [id number], [place] [address] Dec, [facility] [address] [facility] [id number] [place] 117000211 Nov, [facility] [place] [facility] [address] [facility] [id number] [place] [address] Nov, [facility] [address] [facility] [id number], [place] [id number] Nov, [facility] [place] [facility] [address] [facility] [id number] [place] [address] Nov, [facility] [place] [facility] [address] [facility] [id number], [place] [address] Nov, [facility] [place] [facility] [address] [facility] [id number], [place] [address] Nov, [facility] [place] [facility] [address] [facility] [id number], [place] [address] Nov, [facility] [place] [facility] [address] [facility] [id number] [place] [address] Nov, [facility] [address] [facility] [id number], [place] [id number] Oct, [facility] [place] [facility] [address], [place] [address] Oct, [facility] [place] [facility] [address] [facility] [id number], [place] [address] Oct, [facility] [address] [facility] [id number], [place] 719724679 Oct, [facility] [place] [facility] [address] [facility] [id number], [place] [address] Oct, [facility] [address] [facility] [id number], [place] 714091657 Oct, [facility] [place] [facility] [address] [facility] [id number], [place] [address] Oct, [facility] [address] [facility] [id number], [place] 210188152 Aug, [facility] [place] [facility] [address] [facility] [id number], [place] [address] Aug, [facility] [address] [facility] [id number], [place] 579154912 Jul, [facility] [place] [facility] [address] [facility] [id number], [place] [address] Mar, [facility] [address] [id number] [place] [id number] Mar, [facility] [place] [facility] [address] [facility] [id number], [place] [address] Mar, [facility] [address] [id number] [place] [id number] Jan, [facility] [address] [id number] [place] 737912608 Sep, [facility] [place] [facility] [address] [facility] [id number], [place] [address] Sep, [facility] [address] [id number] [place] 401853280 May, [facility] [address] [id number] [place] [id number] Apr, [facility] [address] [id number] [place] [id number] Mar, [facility] [address] [id number] [place] [id number] Mar, [facility] [address] [id number] [place] [id number] February, [facility] [address] [id number] [place] [id number] Jan, [facility] [id number] [address] Mar, [facility] [id number], [place] [address] Sep, [facility] [address] [facility] [id number], [place] [address] Aug, [facility] [address] [id number] [address] Aug, [facility] [address] [facility] [id number], [place] [address] Aug, [facility] [id number], [place] [address] Aug, [facility] [address] [facility] [id number] [place] [address] Aug, [facility] [address] [facility] [id number], [place] [address] Jul, [facility] [address] [facility] [id number] [place] [address] Apr, IMMUNIZATIONS No Known Immunizations SOCIAL HISTORY Never Assessed REASON FOR VISIT RX-Hydrocodone refill PLAN OF CARE VITAL SIGNS MEDICATIONS Medication Instructions Dosage Frequency Start Date End Date Duration Status Hydrocodone-Acetaminophen 5-325 MG Orally 3 times a day must last 28 days 1- 2 tablet as needed Mar, Active RESULTS No Results PROCEDURES No [...]
--- OUTSIDE RECORDS SUMMARY | 2019-04-19 10:33 | XMS REPORT ---
Author Author HILDA WOLF [facility] Address [address] [place] [address] Care Team Providers Care Director Of Officiating Name Role Phone WOLFHILDA Unavailable PROBLEMS Type Condition ICD9-CM Code DTQ12-TR Code Onset Dates Condition Status SNOMED Code Problem Herniated nucleus pulposus M51.9 Active 25531680 Problem OCD (obsessive compulsive disorder) F42 Active 946850743 Problem Anxiety F41.9 Active 21328969 Problem Acquired hypothyroidism E03.9 Active 203766724 Problem Moderate episode of recurrent major depressive disorder F33.1 Active 281918087 Problem Cervicalgia M54.2 Active 74367964 Problem Polyneuropathy G62.9 Active 05066401 Problem Plantar fasciitis M72.2 Active 446127173 ALLERGIES Substance Reaction Event Type Date Status Nortriptyline HCl headache, night fu Drug Allergy Jan, Active Lamictal hives Drug Allergy Jan, Active Clindamycin HCl hives Drug Allergy Jan, Active Latex hives Non Drug Allergy Jan, Active ENCOUNTERS Encounter Location Date Diagnosis [facility] [id number] [place] [address] [id number] Apr, [id number] [place] [address] [id number] Apr, [place] [id number] [place] [address] [id number] Apr, Acquired hypothyroidism E03.9 [place] [id number] [place] [address] [id number] Apr, Acquired hypothyroidism E03.9 [address] [place] [address] [id number] Apr, [address] [place] [address] [id number] Mar, Herniated nucleus pulposus M51.9 and Nodule, subcutaneous R22.9 [place] [id number] [place] [id number] Mar, Herniated nucleus pulposus M51.9 [place] [address] [place] [id number] [place] [address] [id number] February, Herniated nucleus pulposus M51.9 ; Polyneuropathy G62.9 and Anxiety F41.9 [place] [id number] [place] [address] [id number] Jan, Herniated nucleus pulposus M51.9 ; Moderate episode of recurrent major depressive disorder F33.1 and Acquired hypothyroidism E03.9 [place] [id number] [place] [address] [id number] Dec, Herniated nucleus pulposus M51.9 [place] [address] [place] [id number] [place] [address] [id number] Nov, Cervicalgia M54.2 and Herniated nucleus pulposus M51.9 [place] [id number] [place] [address] [id number] Oct, Herniated nucleus pulposus M51.9 and OCD (obsessive compulsive disorder) F42 [address] [place] [address] [id number] Oct, Herniated nucleus pulposus M51.9 [address] [place] [address] [id number] Aug, Acquired hypothyroidism E03.9 [address] [place] [address] [id number] Aug, Herniated nucleus pulposus M51.9 and Acquired hypothyroidism E03.9 [facility] [address] [place] [id number] [address] Aug, [place] [id number] [place] [address] [id number] Jul, Herniated nucleus pulposus M51.9 ; OCD (obsessive compulsive disorder) F42 and Pain of right upper extremity M79.[address] [place] [address] [id number] Jul, Anxiety F41.[address] [id number] [place] [id number] Jul, [facility] [address] [place] [id number] [place] [address] [id number] Jun, OCD (obsessive compulsive disorder) F42 ; Herniated nucleus pulposus M51.9 and Acute cystitis with hematuria N30.01 [facility] [id number] [place] [address] [id number] Jun, Anxiety F41.9 [place] [id number] [place] [address] [id number] Jun, [place] [address] [place] [id number] [place] [address] [id number] May, Acquired hypothyroidism E03.9 [address] [place] [address] [id number] May, Polyneuropathy G62.9 ; OCD (obsessive compulsive disorder) F42 ; Herniated nucleus pulposus M51.9 ; Screening for lipid disorders Z13.220 ; Long-term use of high- risk medication Z79.899 and Major depressive disorder, recurrent, moderate F33.1 [facility] [address] [id number] [id number] May, Dental examination Z01.20 [place] [id number] [place] [id number] May, Herniated nucleus pulposus M51.9 [address] [id number] May, Herniated nucleus pulposus M51.9 and Anxiety F41.9 [address]100[place] [id number] Apr, Herniated nucleus pulposus M51.9 and Cervicalgia M54.2 [address] [place] [address] [id number] Apr, Moderate episode of recurrent major depressive disorder F33.1 [address] [place] [address] [id number] Apr, Herniated nucleus pulposus M51.9 [place] [id number] [place] [address] [id number] Apr, Herniated nucleus pulposus M51.9 [place] [id number] [place] [address] [id number] Mar, Moderate episode of recurrent major depressive disorder F33.1 [facility] [id number] [place] [address] [id number] Mar, Anxiety F41.9 [place] [id number] [place] [address] [id number] Mar, [facility] [address] [place] [id number] [place] [address] [id number] Mar, Herniated nucleus pulposus M51.9 and Cervicalgia M54.2 [place] [id number] [place] [address] [id number] February, Acquired hypothyroidism E03.9 [place] [id number] [place] [address] [id number] February, Polyneuropathy G62.9 ; Herniated nucleus pulposus M51.9 ; Cervicalgia M54.2 and Acquired hypothyroidism E03.9 [facility] [id number] [place] [address] [id number] Jan, [place] [id number] [place] [address] [id number] Jan, Cervicalgia M54.2 and Moderate episode of recurrent major depressive disorder F33.1 [address] [place] [address] [id number] Dec, Cervicalgia M54.2 and Herniated nucleus pulposus M51.9 [place] [id number] [place] [address] [id number] Nov, Lymph nodes enlarged R59.9 [address] [place] [address] [id number] Oct, Cervicalgia M54.2 [facility] [address]00565100[place] [address] Sep, Polyneuropathy G62.9 [address] [place] [address] [id number] Sep, Cervicalgia M54.2 and Herniated nucleus pulposus M51.9 [facility] [address] [id number] [place] [id number] Aug, Lumbar radiculopathy M54.16 and Spinal stenosis at L4-L5 level M48.06 [facility] [id number] [place] [address] [id number] Aug, Cervicalgia M54.2 and Herniated nucleus pulposus M51.9 [facility] [id number] [place] [address] [id number] Jul, [facility] [id number] [place] [address] [id number] Jun, Cervicalgia M54.2 and Herniated nucleus pulposus M51.9 [facility] [id number] [place] [address] [id number] May, Plantar fasciitis M72.2 [place] [id number] [place] [address] [id number] May, [facility] [address] [id number] [place] [address] [id number] Apr, Screening for lipid disorders Z13.220 ; Long-term use of high-risk medication Z79.899 and Major depressive disorder, recurrent, moderate F33.1 [facility] [address] [id number] [place] [id number] Apr, [place] [id number] [place] [address] [id number] Mar, Herniated nucleus pulposus M51.9 and Cervicalgia M54.2 [facility] [address] [id number] [place] [id number] Mar, Cervicalgia M54.2 and Herniated nucleus pulposus M51.9 [facility] [id number] [place] [address] [id number] February, [facility] [id number] [place] [address] [id number] February, Cervicalgia M54.2 and Herniated nucleus pulposus M51.9 [facility] [id number] Dec, Syncope, unspecified syncope type R55 [place] [id number] [place] [address] [id number] Dec, Cervicalgia M54.2 ; Herniated nucleus pulposus M51.9 and Moderate episode of recurrent major depressive disorder F33.1 [place] [id number] [place] [address] [id number] Dec, [place] [id number] [place] [address] [id number] Dec, Herniated nucleus pulposus M51.9 and Cervicalgia M54.2 [place] [id number] [place] [address] [id number] Nov, [place] [id number] [place] [address] [id number] Nov, Herniated nucleus pulposus M51.9 and OCD (obsessive compulsive disorder) F42 [place] [id number] [place] [address] [id number] Sep, Displacement of intervertebral disc, site unspecified, without myelopathy 722.2 ; Cervicalgia 723.1 and Hypothyroidism, unspecified type E03.9 [place] [id number] [place] [address] [id number] Sep, [place] [id number] [place] [address] [id number] Jun, Displacement of intervertebral disc, site unspecified, without myelopathy 722.2 and Cervicalgia 723.1 [place] [id number] [place] [address] [id number] Mar, Displacement of intervertebral disc, site unspecified, without myelopathy 722.2 and Shingles 053.9 [place] [id number] [place] [address] [id number] February, Shingles 053.9 [place] [id number] [place] [address] [id number] February, Displacement of intervertebral disc, site unspecified, without myelopathy 722.2 ; Tension headache 307.81 and Cervicalgia 723.1 [facility] [address] [facility] [id number] [place] [id number] February, [facility] [address] [facility] [id number] [place] [id number] February, [facility] [address] [facility] [id number] [place] [id number] February, [facility] [place] [facility] [address] [facility] [id number] [place] [address] Jan, [facility] [place] [facility] [address] [facility] [id number] [place] [address] Jan, [facility] [address] [facility] [id number] [place] [id number] Jan, [facility] [place] [facility] [address]005[address]100[place] [address] Jan, [facility] [place] [facility] [address]005[address]100[place] [address] Jan, [facility] [place] [id number] [place] [address] Dec, [facility] [place] [facility] [address]005[address]100[place] [address] Dec, [facility] [place] [id number] [place] [id number] Dec, [facility] [place] [facility] [address] [place] [id number] [address] Dec, [facility] [address] [place] [id number] [place] [id number] Nov, [facility] [place] [facility] [address] [facility] [id number] [place] [address] Nov, [facility] [address] [facility] [id number] [place] [id number] Oct, [facility] [place] [facility] [address] [place] [id number] [address] Oct, [facility] [address] [place] [id number] [place] [id number] Oct, [facility] [place] [facility] [address] [id number] [place] [address] Oct, [facility] [address] [id number] [place] [id number] Oct, [facility] [address] [id number] [place] [id number] Oct, [facility] [place] [facility] [address] [facility] [id number] [place] [address] Oct, [facility] [place] [facility] [address] [facility] [id number] [place] [address] Oct, [facility] [address] [id number] [place] [id number] Oct, [facility] [place] [facility] [address] [facility] [id number] [place] [address] Oct, [facility] [address] [facility] [id number] [place] [id number] Oct, [facility] [place] [facility] [address] [facility] [id number] [place] [address] Oct, [facility] [address] [id number] [place] [id number] Sep, [facility] [place] [facility] [address] [facility] [id number] [place] [address] Sep, [facility] [address] [id number] [place] [id number] Aug, [facility] [place] [facility] [address] [facility] [id number] [place] [address] Aug, [facility] [place] [facility] [address] [facility] [id number] [place] [address] Aug, [facility] [address] [id number] [place] [id number] Aug, [facility] [address] [id number] [place] [id number] Aug, [facility] [place] [facility] [address] [facility] [id number] [place] [address] Aug, [facility] [address] [id number] [place] [id number] Jul, [facility] [place] [facility] [address] [id number] [place] [address] Jul, [facility] [address] [id number] [place] 935[address] Jul, [facility] [place] [facility] [address] [facility] [id number] [place] [address] Jul, [facility] [place] [facility] [address] [facility] [id number] [place] [address] Apr, [facility] [address] [id number] [place] [id number] Apr, [facility] [place] [facility] [address] [facility] [id number] [place] [address] Apr, [facility] [address] [facility] [id number] [place] [id number] Apr, [facility] [place] [facility] [address] [facility] [id number] [place] [address] Apr, [facility] [address] [facility] [id number] [place] [id number] Mar, [facility] [place] [facility] [address] [facility] [id number] [place] [address] Mar, [facility] [address] [id number] [place] [id number] Mar, [facility] [place] [facility] [address] [facility] [id number] [place] [address] Mar, [facility] [address] [id number] [place] [id number] February, [facility] [place] [facility] [address] [facility] [id number] [place] [address] February, [facility] [place] [facility] [address] [facility] [id number] [place] [address] February, [facility] [address] [id number] [place] 887364[address] February, [facility] [place] [facility] [address] [id number] [place] [address] February, [facility] [address] [facility] [id number] [place] [id number] February, [facility] [place] [facility] [address] [facility] [id number] [place] [address] February, [facility] [place] [facility] [address] [facility] [id number] [place] [address] Jan, [facility] [place] [facility] [address] [id number] [place] [address] Jan, [facility] [place] [facility] [address] [facility] [id number] [place] [address] Jan, [facility] [address] [facility] [id number] [place] 397[address] Jan, [facility] [place] [facility] [address] [facility] [id number] [place] [address] Jan, [facility] [address] [facility] [id number] [place] [id number] Jan, [facility] [place] [facility] [address] [facility] [id number] [place] [address] Jan, [facility] [address] [facility] [id number] [place] 1620[address]757 Jan, [facility] [place] [facility] [address] [facility] [id number] [place] [address] Jan, [facility] [place] [facility] [address] [facility] [id number] [place] [address] Jan, [facility] [place] [facility] [address] [facility] [id number] [place] [address] Jan, [facility] [place] [facility] [address] [facility] [id number] [place] [address] Jan, [facility] [place] [address] [facility] [id number] [place] 8[address]3788[address] Jan, [facility] [place] [address] [id number] [place] [id number] Jan, [facility] [address] [facility] [id number] [place] [address] Jan, [facility] [place] [address] [id number] [place] [id number] Jan, [facility] [address] [facility] [id number] [place] [address] Jan, [facility] [place] [address] [facility] [id number] [place] [id number] Jan, [facility] [address] [facility] [id number] [place] [address] Jan, [facility] [place] [address] [facility] [id number] [place] [id number] Dec, [facility] [address]00565100[place] [address] Dec, [facility] [address] [facility] [id number] [place] 303538451 Dec, [facility] [address] [id number] [address] Dec, [facility] [address] [facility] [id number] [place] 774888568 Dec, [facility] [address] [id number] [address] Dec, [facility] [address] [facility] [id number] [place] 4032[address]223 Dec, [facility] [place] [facility] [address] [facility] [id number] [place] [address] Dec, [facility] [address] [facility] [id number] [place] [id number] Nov, [facility] [place] [facility] [address] [facility] [id number] [place] [address] Nov, [facility] [address] [facility] [id number] [place] 179739874 Nov, [facility] [place] [facility] [address] [id number] [place] [address] Nov, [facility] [place] [facility] [address] [facility] [id number] [place] [address] Nov, [facility] [place] [facility] [address] [facility] [id number] [place] [address] Nov, [facility] [place] [facility] [address] [facility] [id number] [place] [address] Nov, [facility] [place] [facility] [address] [facility] [id number] [place] [address] Nov, [facility] [address] [facility] [id number] [place] 855821490 Oct, [facility] [address]00565100[place] [address] Oct, [facility] [address] [facility] [id number] [place] [address] Oct, [facility] [address] [id number] [place] 2739[address]373 Oct, [facility] [address] [facility] [id number] [place] [address] Oct, [facility] [address] [id number] [place] 917502391 Oct, [facility] [place] [facility] [address] [facility] [id number] [place] [address] Oct, [facility] [address] [id number] [place] [id number] Aug, [facility] [place] [facility] [address] [facility] [id number] [place] [address] Aug, [facility] [address] [facility] [id number] [place] 014618528 Jul, [facility] [place] [facility] [address] [facility] [id number] [place] [address] Mar, [facility] [place] [address] [id number] [place] 8[address] Mar, [facility] [place] [facility] [address] [id number] [place] [address] Mar, [facility] [place] [address] [id number] [place] 7660169[address] Jan, [facility] [place] [address] [id number] [place] 484[address] Sep, [facility] [place] [facility] [address] [id number] [place] [address] Sep, [facility] [place] [address] [id number] [place] 073356[address] May, [facility] [place] [address] [id number] [place] 384[address]280[address] Apr, [facility] [place] [address] [id number] [place] 408[address] Mar, [facility] [place] [address] [id number] [place] 336313851 Mar, [facility] [place] [address] [id number] [place] 872[address]25[address] February, [facility] [place] [address] [id number] [place] 960885911 Jan, [facility] [place] [facility] [address]00565100[place] [address] Mar, [facility] [id number] [address] Sep, [facility] [address] [id number] [address] Aug, [facility] [id number] [address] Aug, [facility] [address] [id number] [address] Aug, [facility] [id number] [address] Aug, [facility] [address] [id number] [address] Aug, [facility] [address] [facility] [id number] [place] [address] Jul, [facility] [address] [address] [id number] [place] [address] Apr, IMMUNIZATIONS No Known Immunizations SOCIAL HISTORY Never Assessed REASON FOR VISIT Pain management (chronic) Brendon MATUTE PLAN OF CARE Activity Details Follow Up 2 Months Reason:back pain VITAL SIGNS Height 66 in 2018-01-05 Weight 218.0 lbs 2018-01-05 Temperature 99.2 degrees Fahrenheit 2018-01-05 Heart Rate 70 bpm 2018-01-05 Respiratory Rate 16 2018-01-05 BMI 35.18 kg/m2 2018-01-05 Blood pressure systolic 130 mmHg 2018-01-05 Blood pressure diastolic 74 mmHg 2018-01-05 MEDICATIONS Medication Instructions Dosage Frequency Start Date End Date Duration Status Walker - as directed w seat Jun, Active Levothyroxine Sodium 88 MCG Orally Once a day 1 tablets 24h Active Hydrocodone-Acetaminophen 5-325 MG Orally 3 times a day must last 28 days 1- 2 tablet as needed Jan, Active Clonazepam 0.5 MG Orally Twice a day prn .5-1 tablet Mar, Active HydrOXYzine HCl 50 MG take 1 tablet by Oral route 1 time per day PRN itching Active Baclofen 10 mg Orally Three times a day 1 tablet with food or milk 8h Active Gabapentin 600 MG Orally 3 times a day 2 am 1.5 midday 2 hs 8h Active Omeprazole 20 mg Orally Once a day 1 capsules 24h Aug, Active Phenergan 25 mg oral 3 times a day 1 tablet 8h May, Active Lidoderm 5 % Externally Once a day 1 patch ea left and right upper back x 12 hours then remove patches for 12 hours 24h Active TENS Unit device Use as directed Mar, Active Fluvoxamine Maleate 50 mg Orally Once [...]
--- OUTSIDE RECORDS SUMMARY | 2019-04-19 10:33 | XMS REPORT ---
Author Author HILDA WOLF [facility] Address [address] [place] [address] Care Team Providers Care Airframe Technician Name Role Phone HILDA WOLF Unavailable PROBLEMS Type Condition ICD9-CM Code WPA47-QA Code Onset Dates Condition Status SNOMED Code Problem Herniated nucleus pulposus M51.9 Active 14697407 Problem OCD (obsessive compulsive disorder) F42 Active 444159455 Problem Anxiety F41.9 Active 49647745 Problem Acquired hypothyroidism E03.9 Active 204034767 Problem Moderate episode of recurrent major depressive disorder F33.1 Active 565800208 Problem Cervicalgia M54.2 Active 54837747 Problem Polyneuropathy G62.9 Active 63713089 Problem Plantar fasciitis M72.2 Active 206669557 ALLERGIES Substance Reaction Event Type Date Status Nortriptyline HCl headache, night fu Drug Allergy Nov, Active Lamictal hives Drug Allergy Nov, Active Clindamycin HCl hives Drug Allergy Nov, Active Latex hives Non Drug Allergy Nov, Active ENCOUNTERS Encounter Location Date Diagnosis [id number] [place] [address] [id number] Mar, Herniated nucleus pulposus M51.9 and Nodule, subcutaneous R22.9 [id number] [place] [address] [id number] Mar, Herniated nucleus pulposus M51.9 [address] [id number] [place] [address] [id number] February, Herniated nucleus pulposus M51.9 ; Polyneuropathy G62.9 and Anxiety F41.9 [place] [id number] [place] [address] [id number] Jan, Herniated nucleus pulposus M51.9 ; Moderate episode of recurrent major depressive disorder F33.1 and Acquired hypothyroidism E03.[address] [id number] [place] [id number] Dec, Herniated nucleus pulposus M51.9 [facility] [id number] [place] [address] [id number] Nov, Cervicalgia M54.2 and Herniated nucleus pulposus M51.9 [facility] [id number] [place] [address] [id number] Oct, Herniated nucleus pulposus M51.9 and OCD (obsessive compulsive disorder) F42 [facility] [id number] [place] [address] [id number] Oct, Herniated nucleus pulposus M51.9 [facility] [id number] [place] [address] [id number] Aug, Acquired hypothyroidism E03.9 [facility] [id number] [place] [address] [id number] Aug, Herniated nucleus pulposus M51.9 and Acquired hypothyroidism E03.9 [facility] [address] [id number] [address] Aug, [facility] [id number] [place] [address] [id number] Jul, Herniated nucleus pulposus M51.9 ; OCD (obsessive compulsive disorder) F42 and Pain of right upper extremity M79.601 [facility] [id number] [place] [address] [id number] Jul, Anxiety F41.9 [facility] [id number] [place] [address] [id number] Jul, [facility] [id number] [place] [address] [phone] Jun, OCD (obsessive compulsive disorder) F42 ; Herniated nucleus pulposus M51.9 and Acute cystitis with hematuria N30.01 [facility] [id number] [place] [id number] 13 Jun, 2017 Anxiety F41.9 [facility] [id number] [place] [id number] 07 Jun, 2017 [facility] [address] [id number] [place] [address] [id number] May, Acquired hypothyroidism E03.9 [facility] [id number] [place] [address] [id number] May, Polyneuropathy G62.9 ; OCD (obsessive compulsive disorder) F42 ; Herniated nucleus pulposus M51.9 ; Screening for lipid disorders Z13.220 ; Long-term use of high- risk medication Z79.899 and Major depressive disorder, recurrent, moderate F33.1 [facility] [address] [id number] [id number] May, Dental examination Z01.20 [facility] [id number] [place] [address] [id number] May, Herniated nucleus pulposus M51.9 [facility] [id number] [place] [address] [id number] May, Herniated nucleus pulposus M51.9 and Anxiety F41.9 [facility] [id number] [place] [address] [id number] Apr, Herniated nucleus pulposus M51.9 and Cervicalgia M54.2 [facility] [id number] [place] [address] [id number] Apr, Moderate episode of recurrent major depressive disorder F33.1 [facility] [address] [id number] [place] [address] [id number] Apr, Herniated nucleus pulposus M51.9 [facility] [id number] [place] [address] [id number] Apr, Herniated nucleus pulposus M51.9 [facility] [id number] [place] [address] [id number] Mar, Moderate episode of recurrent major depressive disorder F33.1 [facility] [id number] [place] [address] [id number] Mar, Anxiety F41.9 [facility] [id number] [place] [address] [id number] Mar, [facility] [id number] [place] [address] [id number] Mar, Herniated nucleus pulposus M51.9 and Cervicalgia M54.2 [facility] [id number] [place] [address] [id number] February, Acquired hypothyroidism E03.9 [facility] [id number] [place] [address] [id number] February, Polyneuropathy G62.9 ; Herniated nucleus pulposus M51.9 ; Cervicalgia M54.2 and Acquired hypothyroidism E03.9 [facility] [id number] [place] [address] [id number] Jan, [place] [id number] [place] [address] [id number] Jan, Cervicalgia M54.2 and Moderate episode of recurrent major depressive disorder F33.1 [place] [id number] [place] [address] [id number] Dec, Cervicalgia M54.2 and Herniated nucleus pulposus M51.9 [id number] [place] [address] [id number] Nov, Lymph nodes enlarged R59.9 [id number] [place] [address] [id number] Oct, Cervicalgia M54.2 [facility] [address] [address] Sep, Polyneuropathy G62.9 [id number] [place] [address] [id number] Sep, Cervicalgia M54.2 and Herniated nucleus pulposus M51.9 [id number] [place] [address] [id number] Aug, Lumbar radiculopathy M54.16 and Spinal stenosis at L4-L5 level M48.06 [place] [id number] [place] [address] [id number] Aug, Cervicalgia M54.2 and Herniated nucleus pulposus M51.9 [id number] [place] [address] [id number] Jul, [place] [id number] [place] [id number] Jun, Cervicalgia M54.2 and Herniated nucleus pulposus M51.9 [facility] [id number] [place] [address] [id number] May, Plantar fasciitis M72.2 [facility] [id number] [place] [address] [id number] May, [facility] [id number] [place] [address] [id number] Apr, Screening for lipid disorders Z13.220 ; Long-term use of high-risk medication Z79.899 and Major depressive disorder, recurrent, moderate F33.1 [facility] [id number] [place] [address] [id number] Apr, [place] [id number] [place] [address] [id number] Mar, Herniated nucleus pulposus M51.9 and Cervicalgia M54.2 [facility] [id number] [place] [address] [id number] Mar, Cervicalgia M54.2 and Herniated nucleus pulposus M51.9 [place] [id number] [place] [address] [id number] February, [facility] [id number] [place] [address] [id number] February, Cervicalgia M54.2 and Herniated nucleus pulposus M51.9 [place] [id number] [place] [address] [id number] Dec, Syncope, unspecified syncope type R55 [place] [id number] [place] [address] [id number] Dec, Cervicalgia M54.2 ; Herniated nucleus pulposus M51.9 and Moderate episode of recurrent major depressive disorder F33.1 [facility] [id number] [place] [address] [id number] Dec, [facility] [id number] [place] [address] [id number] Dec, Herniated nucleus pulposus M51.9 and Cervicalgia M54.2 [facility] [id number] [place] [address] [id number] Nov, [place] [id number] [place] [address] [id number] Nov, Herniated nucleus pulposus M51.9 and OCD (obsessive compulsive disorder) F42 [place] [id number] [place] [address] [id number] Sep, Displacement of intervertebral disc, site unspecified, without myelopathy 722.2 ; Cervicalgia 723.1 and Hypothyroidism, unspecified type E03.9 [place] [id number] [place] [address] [id number] Sep, [place] [id number] [place] [address] [id number] Jun, Displacement of intervertebral disc, site unspecified, without myelopathy 722.2 and Cervicalgia 723.1 [place] [id number] [place] [address] [id number] Mar, Displacement of intervertebral disc, site unspecified, without myelopathy 722.2 and Shingles 053.[id number] [place] [address] [id number] February, Shingles 053.9 [place] [id number] [place] [address] [id number] February, Displacement of intervertebral disc, site unspecified, without myelopathy 722.2 ; Tension headache 307.81 and Cervicalgia 723.[id number] [place] [address] [id number] February, [id number] [place] [address] [id number] February, [place] [id number] [place] [address] [id number] February, [facility] [address] [place] [address] Jan, [facility] [id number] [place] [address] Jan, [facility] [address] [id number] [place] [id number] Jan, [facility] [place] [facility] [address] [facility] [id number] [place] [address] Jan, [facility] [place] [facility] [address] [facility] [id number] [place] [address] Jan, [facility] [address] [facility] [id number] [place] [id number] Dec, [facility] [place] [facility] [address] [facility] [id number] [place] [address] Dec, [facility] [address] [id number] [place] [id number] Dec, [facility] [place] [facility] [address] [address] Dec, [facility] [id number] [place] [id number] Nov, [facility] [place] [facility] [address] [address] Nov, [facility] [address] [facility] [id number] [place] [id number] Oct, [facility] [place] [facility] [address] [address] Oct, [facility] [address] [facility] [id number] [place] [id number] Oct, [facility] [place] [facility] [address] [address] Oct, [facility] [address] [id number] [place] [id number] Oct, [facility] [address] [id number] [place] [id number] Oct, [facility] [place] [facility] [address] [address] Oct, [facility] [place] [facility] [address] [address] Oct, [facility] [address] [id number] [place] [id number] Oct, [facility] [place] [facility] [address] [facility] [id number] [place] [address] Oct, [facility] [address] [facility] [id number] [place] [id number] Oct, [facility] [place] [facility] [address] [facility] [id number] [place] [address] Oct, [facility] [address] [id number] [place] [id number] Sep, [facility] [place] [facility] [address] [facility] [id number] [place] [address] Sep, [facility] [address] [facility] [id number] [place] [id number] Aug, [facility] [place] [facility] [address] [address] Aug, [facility] [place] [facility] [address] [facility] [id number] [place] [address] Aug, [facility] [address] [facility] [id number] [place] [id number] Aug, [facility] [address] [facility] [id number] [place] [id number] Aug, [facility] [place] [facility] [address] [facility] [id number] [place] [address] Aug, [facility] [address] [facility] [id number] [place] [id number] Jul, [facility] [place] [facility] [address] [facility] [id number] [place] [address] Jul, [facility] [address] [facility] [id number] [place] [id number] Jul, [facility] [place] [facility] [address] [address] Jul, [facility] [place] [facility] [address] [facility] [id number] [place] [address] Apr, [facility] [address] [id number] [place] [id number] Apr, [facility] [place] [facility] [address] [id number] [place] [address] Apr, [facility] [address] [facility] [id number] [place] [id number] Apr, [facility] [place] [facility] [address] [id number] [place] [address] Apr, [facility] [address] [facility] [id number] [place] [id number] Mar, [facility] [place] [facility] [address] [id number] [place] [address] Mar, [facility] [address] [facility] [id number] [place] [id number] Mar, [facility] [place] [facility] [address] [address] Mar, [facility] [address] [facility] [id number] [place] [id number] February, [facility] [place] [facility] [address] [address] February, [facility] [place] [facility] [id number] [address] February, [facility] [address] [facility] [id number] [place] [id number] February, [facility] [place] [facility] [address] [id number] [place] [address] February, [facility] [address] [facility] [id number] [place] [address]36[address] February, [facility] [place] [facility] [address] [facility] [id number] [place] [address] February, [facility] [place] [facility] [address] [facility] [id number] [place] [address] Jan, [facility] [place] [facility] [address] [id number] [place] [address] Jan, [facility] [place] [facility] [address] [id number] [place] [address] Jan, [facility] [address] [facility] [id number] [place] 4[address] Jan, [facility] [place] [facility] [address] [facility] [id number] [place] [address] Jan, [facility] [address] [facility] [id number] [place] [id number] Jan, [facility] [place] [facility] [address] [id number] [place] [address] Jan, [facility] [address] [facility] [id number] [place] [id number] Jan, [facility] [place] [facility] [address] [facility] [id number] [place] [address] Jan, [facility] [place] [facility] [address] [facility] [id number] [place] [address] Jan, [facility] [place] [facility] [address] [facility] [id number] [place] [address] Jan, [facility] [place] [facility] [address] [facility] [id number] [place] [address] Jan, [facility] [address] [id number] [place] [id number] Jan, [facility] [address] [id number] [place] [id number] Jan, [facility] [place] [facility] [address] [facility] [id number] [place] [address] Jan, [facility] [address] [facility] [id number] [place] [id number] Jan, [facility] [place] [facility] [address] [facility] [id number] [place] [address] Jan, [facility] [address] [facility] [id number] [place] [id number] Jan, [facility] [place] [facility] [address] [facility] [id number] [place] [address] Jan, [facility] [address] [facility] [id number] [place] 1147340[address] Dec, [facility] [place] [facility] [address] [facility] [id number] [place] [address] Dec, [facility] [address] [facility] [id number] [place] [id number] Dec, [facility] [place] [facility] [address] [facility] [id number] [place] [address] Dec, [facility] [address] [facility] [id number] [place] [id number] Dec, [facility] [place] [facility] [id number] [address] Dec, [facility] [address] [id number] [place] 36086[address] Dec, [facility] [place] [facility] [id number] [address] Dec, [facility] [address] [facility] [id number] [place] [id number] Nov, [facility] [place] [facility] [id number] [address] Nov, [facility] [address] [id number] [place] [id number] Nov, [facility] [place] [facility] [address] [facility] [id number] [place] [address] Nov, [facility] [place] [facility] [address] [facility] [id number] [place] [address] Nov, [facility] [place] [facility] [address] [facility] [id number] [place] [address] Nov, [facility] [place] [facility] [address] [id number] [address] Nov, [facility] [place] [facility] [address] [address] Nov, [facility] [address] [id number] [place] [id number] Oct, [facility] [place] [facility] [address] [facility] [id number] [place] [address] Oct, [facility] [address] [facility] [id number] [place] [address] Oct, [facility] [address] [facility] [id number] [place] [id number] Oct, [facility] [place] [facility] [address] [facility] [id number] [place] [address] Oct, [facility] [address] [facility] [id number] [place] 6[address] Oct, [facility] [place] [facility] [address] [address] Oct, [facility] [address] [facility] [id number] [place] [id number] Aug, [facility] [place] [facility] [address] [facility] [id number] [place] [address] Aug, [facility] [address] [id number] [place] [id number] Jul, [facility] [address] [facility] [id number] [place] [address] Mar, [facility] [address] [id number] [place] [id number] Mar, [facility] [address] [facility] [id number] [place] [address] Mar, [facility] [address] [id number] [place] [id number] Jan, [facility] [address] [facility] [id number] [place] [id number] Sep, [facility] [address] [facility] [id number] [place] [address] Sep, [facility] [address] [id number] [place] [id number] May, [facility] [address] [id number] [place] [id number] Apr, [facility] [address] [id number] [place] [id number] Mar, [facility] [address] [id number] [place] [id number] Mar, [facility] [id number] [place] [id number] February, [facility] [address] [id number] [place] [id number] Jan, [facility] [id number] [place] [id number] Mar, [facility] [id number] [place] [id number] Sep, [facility] [id number] [place] [id number] Aug, [facility] [id number] [place] [id number] Aug, [facility] [id number] [place] [id number] Aug, [facility] [id number] [place] [id number] Aug, [facility] [id number] [place] [id number] Aug, [facility] [id number] [place] [id number] Jul, [facility] [id number] [place] [id number] Apr, IMMUNIZATIONS No Known Immunizations SOCIAL HISTORY Never Assessed REASON FOR VISIT Pain management (chronic) Brendon MATUTE PLAN OF CARE Activity Details Follow Up 4 Weeks Reason:back pain VITAL SIGNS Height 66 in 2017-11-10 Weight 214.8 lbs 2017-11-10 Temperature 97.9 degrees Fahrenheit 2017-11-10 Heart Rate 71 bpm 2017-11-10 Respiratory Rate 18 2017-11-10 BMI 34.67 kg/m2 2017-11-10 Blood pressure systolic 110 mmHg 2017-11-10 Blood pressure diastolic 60 mmHg 2017-11-10 MEDICATIONS Medication Instructions Dosage Frequency Start Date End Date Duration Status Baclofen 10 mg Orally Three times a day 1 tablet with food or milk 8h Active Gabapentin 600 MG Orally 3 times a day 2 am 1.5 midday 2 hs 8h Active Clonazepam 0.5 MG Orally Twice a day prn .5-1 tablet Mar, Active TENS Unit device Use as directed Mar, Active Fluvoxamine Maleate 50 mg Orally Once a day 1 tablet at bedtime 24h May, 30 day(s) Active Voltaren 1 % Transdermal 4 times a day as directed 6h Mar, Active Phenergan 25 mg oral 3 times a day 1 tablet 8h May, Active Hydrocodone-Acetaminophen 5-325 MG Orally 3 times a day must last 1 m 1-2 tablet as needed Nov, Active Lidoderm 5 %(700 mg/patch) Externally Once a day 1 patch ea left and right upper back x 12 hours then remove patches for 12 hours 24h Active Walker - as directed w seat Jun, Active Omeprazole 20 mg Orally Once a day 1 capsules 24h Aug, Active HydrOXYzine HCl 50 MG take 1 tablet by Oral route 1 time per day PRN itching Active Levothyroxine Sodium 88 MCG Orally Once a day 1 tablets 24h Active RESULTS No Results PROCEDURES No [...]
--- OUTSIDE RECORDS SUMMARY | 2019-04-19 10:33 | XMS REPORT ---
Author Author HILDA WOLF [facility] Address [address] [place] [address] Care Team Providers [facility] Name Role Phone HILDA WOLF Unavailable PROBLEMS Type Condition ICD9-CM Code TEK18-II Code Onset Dates Condition Status SNOMED Code Problem Herniated nucleus pulposus M51.9 Active 67443395 Problem OCD (obsessive compulsive disorder) F42 Active 854134196 Problem Anxiety F41.9 Active 06118177 Problem Acquired hypothyroidism E03.9 Active 814837874 Problem Moderate episode of recurrent major depressive disorder F33.1 Active 879531733 Problem Cervicalgia M54.2 Active 52555726 Problem Polyneuropathy G62.9 Active 34182841 Problem Plantar fasciitis M72.2 Active 373369900 ALLERGIES No Information ENCOUNTERS Encounter Location Date Diagnosis [place] [id number] [place] [address] [id number] Mar, Herniated nucleus pulposus M51.9 and Nodule, subcutaneous R22.9 [place] [id number] [place] [address] [id number] Mar, Herniated nucleus pulposus M51.9 [place] [id number] [place] [address] [id number] February, Herniated nucleus pulposus M51.9 ; Polyneuropathy G62.9 and Anxiety F41.[id number] [place] [address] [id number] Jan, Herniated nucleus pulposus M51.9 ; Moderate episode of recurrent major depressive disorder F33.1 and Acquired hypothyroidism E03.9 [place] [id number] [place] [address] [id number] Dec, Herniated nucleus pulposus M51.9 [address] [id number] [place] [address] [id number] Nov, Cervicalgia M54.2 and Herniated nucleus pulposus M51.9 [facility] [address] [id number] [place] [id number] Oct, Herniated nucleus pulposus M51.9 and OCD (obsessive compulsive disorder) F42 [facility] [address] [id number] [place]ST[place] [id number] Oct, Herniated nucleus pulposus M51.9 [facility] [id number] [place] [address] [id number] Aug, Acquired hypothyroidism E03.9 [facility] [id number] [place] [address] [id number] Aug, Herniated nucleus pulposus M51.9 and Acquired hypothyroidism E03.9 [facility] [address] [id number] [address] Aug, [facility] [id number] [place] [address] [id number] Jul, Herniated nucleus pulposus M51.9 ; OCD (obsessive compulsive disorder) F42 and Pain of right upper extremity M79.601 [facility] [id number] [place] [address] [id number] Jul, Anxiety F41.9 [facility] [address] [id number] [place] [address] [id number] Jul, [facility] [id number] [place] [address] [id number] Jun, OCD (obsessive compulsive disorder) F42 ; Herniated nucleus pulposus M51.9 and Acute cystitis with hematuria N30.01 [facility] [address] [id number] [place] [id number] Jun, Anxiety F41.9 [facility] [address] [id number] [place] [address] [id number] Jun, [facility] [address] [id number] [place] [address] [id number] May, Acquired hypothyroidism E03.9 [facility] [id number] [place]ST[place] [id number] May, Polyneuropathy G62.9 ; OCD (obsessive compulsive disorder) F42 ; Screening for lipid disorders Z13.220 ; Herniated nucleus pulposus M51.9 ; Long-term use of high-risk medication Z79.899 and Major depressive disorder, recurrent, moderate F33.1 [facility] [address] [id number] [place] [id number] May, Dental examination Z01.20 [facility] [id number] [place] [address] [id number] May, Herniated nucleus pulposus M51.9 [facility] [id number] [place] [address] [id number] May, Herniated nucleus pulposus M51.9 and Anxiety F41.9 [place] [address] [id number] [place] [address] [id number] Apr, Herniated nucleus pulposus M51.9 and Cervicalgia M54.2 [facility] [address] [id number] [place] [address] [id number] Apr, Moderate episode of recurrent major depressive disorder F33.1 [facility] [address] [id number] [place] [address] [id number] Apr, Herniated nucleus pulposus M51.9 [facility] [id number] [place] [address] [id number] Apr, Herniated nucleus pulposus M51.9 [place] [id number] [place] [address] [id number] Mar, Moderate episode of recurrent major depressive disorder F33.1 [facility] [id number] [place] [address] [id number] Mar, Anxiety F41.9 [facility] [address] [id number] [place] [address] [id number] Mar, [facility] [address] [id number] [place] [address] [id number] Mar, Herniated nucleus pulposus M51.9 and Cervicalgia M54.2 [facility] [id number] [place] [address] [id number] February, Acquired hypothyroidism E03.9 [facility] [id number] [place]STLE[place] [id number] February, Polyneuropathy G62.9 ; Herniated nucleus pulposus M51.9 ; Cervicalgia M54.2 and Acquired hypothyroidism E03.9 [facility] [id number] [place] [address] [id number] Jan, [place] [id number] [place] [address] [id number] Jan, Cervicalgia M54.2 and Moderate episode of recurrent major depressive disorder F33.1 [place] [id number] [place] [address] [id number] Dec, Cervicalgia M54.2 and Herniated nucleus pulposus M51.9 [place] [id number] [place] [address] [id number] Nov, Lymph nodes enlarged R59.9 [place] [id number] [place] [address] [id number] Oct, Cervicalgia M54.2 [facility] [id number] [place] [address] Sep, Polyneuropathy G62.9 [place] [id number] [place] [address] [id number] Sep, Cervicalgia M54.2 and Herniated nucleus pulposus M51.9 [place] [id number] [place] [address] [id number] Aug, Lumbar radiculopathy M54.16 and Spinal stenosis at L4-L5 level M48.06 [place] [id number] [place] [address] [id number] Aug, Cervicalgia M54.2 and Herniated nucleus pulposus M51.9 [place] [id number] [place] [address] [id number] Jul, [place] [id number] [place] [address] [id number] Jun, Cervicalgia M54.2 and Herniated nucleus pulposus M51.9 [place] [id number] [place] [address] [id number] May, Plantar fasciitis M72.2 [facility] [id number] [place] [address] [id number] May, [place] [id number] [place] [address] [id number] Apr, Screening for lipid disorders Z13.220 ; Long-term use of high-risk medication Z79.899 and Major depressive disorder, recurrent, moderate F33.1 [facility] [id number] [place] [address] [id number] Apr, [place] [id number] [place] [address] [id number] Mar, Herniated nucleus pulposus M51.9 and Cervicalgia M54.2 [place] [id number] [place] [address] [id number] Mar, Cervicalgia M54.2 and Herniated nucleus pulposus M51.9 [place] [id number] [place] [address] [id number] February, [facility] [id number] [place] [address] [id number] February, Cervicalgia M54.2 and Herniated nucleus pulposus M51.9 [place] [id number] [place] [address] [id number] Dec, Syncope, unspecified syncope type R55 [place] [id number] [place] [address] [id number] Dec, Cervicalgia M54.2 ; Herniated nucleus pulposus M51.9 and Moderate episode of recurrent major depressive disorder F33.1 [facility] [id number] [place] [address] [id number] Dec, [id number] [place] [address] [id number] Dec, Herniated nucleus pulposus M51.9 and Cervicalgia M54.2 [facility] [id number] [place] [address] [id number] Nov, [place] [id number] [place] [address] [id number] Nov, Herniated nucleus pulposus M51.9 and OCD (obsessive compulsive disorder) F42 [facility] [id number] [place] [address] [id number] Sep, Displacement of intervertebral disc, site unspecified, without myelopathy 722.2 ; Cervicalgia 723.1 and Hypothyroidism, unspecified type E03.9 [facility] [id number] [place] [address] [id number] Sep, [place] [id number] [place] [address] [id number] Jun, Displacement of intervertebral disc, site unspecified, without myelopathy 722.2 and Cervicalgia 723.[address] [id number] Mar, Displacement of intervertebral disc, site unspecified, without myelopathy 722.2 and Shingles 053.9 [place] [id number] [place] [address] [id number] February, Shingles 053.9 [place] [id number] [place] [address] [id number] February, Displacement of intervertebral disc, site unspecified, without myelopathy 722.2 ; Tension headache 307.81 and Cervicalgia 723.1 [facility] [id number] [place] [address] [id number] February, [address] [id number] February, [place] [id number] [place] [address] [id number] February, [facility] [id number] [place] [address] Jan, [facility] [address] [address] Jan, [facility] [id number] [place] [address] [id number] Jan, [facility] [id number] [place] [address] Jan, [facility] [place] [facility] [address] [facility] [address] [id number] [address] Jan, [facility] [address] [id number] [place] [id number] Dec, [facility] [place] [facility] [address] [facility] [address] [id number], [place] [address] Dec, [facility] [address] [id number] [place] [id number] Dec, [facility] [place] [facility] [address] [facility] [address] [id number], [place] [address] Dec, [facility] [address] [id number] [place] [id number] Nov, [facility] [place] [facility] [address] [facility] [address] [id number], [place] [address] Nov, [facility] [address] [facility] [id number] [place] [id number] Oct, [facility] [place] [facility] [address] [facility] [address] [id number], [place] [address] Oct, [facility] [address] [facility] [id number] [place] [id number] Oct, [facility] [place] [facility] [address] [facility] [address] [id number], [place] [address] Oct, [facility] [address] [id number] [place] [id number] Oct, [facility] [address] [facility] [id number] [place] [id number] Oct, [facility] [place] [facility] [address] [facility] [address] [id number], [place] [address] Oct, [facility] [place] [facility] [address] [facility] [address] [id number], [place] [address] Oct, [facility] [address] [id number] [place] [id number] Oct, [facility] [place] [facility] [address] [facility] [address] [id number], [place] [address] Oct, [facility] [address] [id number] [place] [id number] Oct, [facility] [place] [facility] [address] [facility] [address] [id number], [place] [address] Oct, [facility] [address] [id number] [place] [id number] Sep, [facility] [place] [facility] [address] [facility] [address] [id number], [place] [address] Sep, [facility] [address] [id number] [place] [id number] Aug, [facility] [place] [facility] [address] [facility] [address] [id number], [place] [address] Aug, [facility] [place] [facility] [address] [facility] [address] [id number], [place] [address] Aug, [facility] [address] [id number] [place] [id number] Aug, [facility] [address] [facility] [id number] [place] [id number] Aug, [facility] [place] [facility] [address] [facility] [address] [id number], [place] [address] Aug, [facility] [address] [facility] [id number] [place] [id number] Jul, [facility] [place] [facility] [address] [facility] [address] [id number], [place] [address] Jul, [facility] [address] [facility] [id number] [place] [id number] Jul, [facility] [place] [facility] [address] [facility] [address] [id number], [place] [address] Jul, [facility] [place] [facility] [address] [facility] [address] [id number], [place] [address] Apr, [facility] [address] [facility] [id number] [place] [id number] Apr, [facility] [place] [facility] [address] [facility] [address] [id number], [place] [address] Apr, [facility] [address] [id number] [place] [id number] Apr, [facility] [place] [facility] [address] [id number] [place] [address] Apr, [facility] [address] [id number] [place] [id number] Mar, [facility] [place] [facility] [address] [id number] [place] [address] Mar, [facility] [address] [id number] [place] [id number] Mar, [facility] [place] [facility] [address] [id number] [place] [address] Mar, [facility] [address] [id number] [place] [id number] February, [facility] [place] [facility] [address] [id number] [place] [address] February, [facility] [place] [facility] [address] [facility] [address] [id number] [place] [address] February, [facility] [address] [facility] [id number] [place] [id number] February, [facility] [place] [facility] [address] [facility] [address] [id number] [place] [address] February, [facility] [address] [facility] [id number] [place] [id number] February, [facility] [place] [facility] [address] [facility] [address] [id number] [place] [address] February, [facility] [place] [facility] [address] [id number] [place] [address] Jan, [facility] [place] [facility] [address] [facility] [address] [id number] [place] [address] Jan, [facility] [place] [facility] [address] [facility] [address] [id number] [place] [address] Jan, [facility] [address] [id number] [place] [id number] Jan, [facility] [place] [facility] [address] [facility] [address] [id number] [place] [address] Jan, [facility] [address] [facility] [id number] [place] [id number] Jan, [facility] [place] [facility] [address] [facility] [address] [id number] [place] [address] Jan, [facility] [address] [facility] [id number] [place] [address] Jan, [facility] [place] [facility] [address] [facility] [address] [id number] [place] [address] Jan, [facility] [place] [facility] [address] [facility] [address] [id number] [place] [address] Jan, [facility] [place] [facility] [address] [place] [address] Jan, [facility] [place] [facility] [address] [facility] [address] [id number] [place] [address] Jan, [facility] [address] [id number] [place] [id number] Jan, [facility] [address] [facility] [id number] [place] [id number] Jan, [facility] [place] [facility] [address] [facility] [address] [id number], [place] [address] Jan, [facility] [address] [id number] [place] [id number] Jan, [facility] [place] [facility] [address] [facility] [address] [id number] [place] [address] Jan, [facility] [address] [facility] [id number] [place] [id number] Jan, [facility] [place] [facility] [address] [facility] [address] [id number] [place] [address] Jan, [facility] [address] [facility] [id number] [place] 83[address] Dec, [facility] [place] [facility] [address] [facility] [address] [id number], [place] [address] Dec, [facility] [address] [facility] [id number] [place] [address] Dec, [facility] [place] [facility] [address] [facility] [address] [id number], [place] [address] Dec, [facility] [address] [facility] [id number] [place] [id number] Dec, [facility] [place] [facility] [address] [facility] [address] [id number], [place] [address] Dec, [facility] [address] [facility] [id number] [place] 1589[address] Dec, [facility] [place] [facility] [address] [id number], [place] [address] Dec, [facility] [address] [id number] [place] [id number] Nov, [facility] [place] [facility] [address], [place] [address] Nov, [facility] [address] [id number] [place] [id number] Nov, [facility] [place] [facility] [address], [place] [address] Nov, [facility] [place] [facility] [address], [place] [address] Nov, [facility] [place] [facility] [address] [id number], [place] [address] Nov, [facility] [place] [facility] [address] [facility] [address] [id number], [place] [address] Nov, [facility] [place] [facility] [address] [facility] [address] [id number], [place] [address] Nov, [facility] [address] [facility] [id number] [place] [address] Oct, [facility] [place] [facility] [address] [facility] [address] [id number], [place] [address] Oct, [facility] [address] [id number], [place] [address] Oct, [facility] [address] [id number] [place] [id number] Oct, [facility] [address] [facility] [address] [id number], [place] [address] Oct, [facility] [address] [id number] [place] [address] Oct, [facility] [place] [facility] [address] [facility] [address] [id number], [place] [address] Oct, [facility] [address] [id number] [place] [id number] Aug, [facility] [address] [id number], [place] [address] Aug, [facility] [address] [id number] [place] [address] Jul, [facility] [place] [facility] [address] [facility] [address] [id number], [place] [address] Mar, [facility] [address] [id number] [place] [address]48[address] Mar, [facility] [place] [facility] [address] [facility] [id number], [place] [address] Mar, [facility] [address] [id number] [place] [id number] Jan, [facility] [address] [id number] [place] [id number] Sep, [facility] [address] [id number], [place] [address] Sep, [facility] [address] [id number] [place] [id number] May, [facility] [address] [id number] [place] [id number] Apr, [facility] [address] [id number] [place] [id number] Mar, [facility] [address] [id number] [place] [id number] Mar, [facility] [address] [id number] [place] [id number] February, [facility] [address] [id number] [place] [id number] Jan, [facility] [id number] [place] [address] Mar, [facility] [id number] [place] [address] Sep, [facility] [id number] [place] [address] Aug, [facility] [id number] [place] [address] Aug, [facility] [id number] [place] [address] Aug, [facility] [id number] [place] [address] Aug, [facility] [id number] [place] [address] Aug, [facility] [id number] [address] Jul, [facility] [id number] [address] Apr, IMMUNIZATIONS No Known Immunizations SOCIAL HISTORY Never Assessed REASON FOR VISIT RX-Hydrocodone refill PLAN OF CARE VITAL SIGNS MEDICATIONS Medication Instructions Dosage Frequency Start Date End Date Duration Status Hydrocodone-Acetaminophen 5-325 MG Orally 3 times a day must last 28 days 1- 2 tablet as needed Dec, Active RESULTS No Results PROCEDURES No [...]
--- OUTSIDE RECORDS SUMMARY | 2019-04-19 10:34 | XMS REPORT ---
Author Author HILDA WOLF Organization [employer] Address Unknown Phone Unavailable Care Team Providers Care Production Line Technician Name Role Phone HILDA WOLF CP Unavailable Allergies No Known Allergies Problems Problem Type Condition Code Onset Dates Condition Status Assessment Screening for lipid disorders Z13.220 Active Problem Allergy, unspecified not elsewhere classified 995.3 Active Problem Unspecified peripheral vertigo 386.10 Active Assessment Major depressive disorder, recurrent, moderate F33.1 Active Assessment Long-term use of high-risk medication Z79.899 Active Problem Cervicalgia M54.2 Active Problem Herniated nucleus pulposus M51.9 Active Problem Moderate episode of recurrent major depressive disorder F33.1 Active Problem Generalized hyperhidrosis 780.8 Active Problem Tension headache 307.81 Active Problem OCD (obsessive compulsive disorder) F42 Active Problem Lumbar sprain and strain 847.2 Active Medications No Known Medications Results No Known Results Summary Purpose [employer] Submission
--- OUTSIDE RECORDS SUMMARY | 2019-04-19 10:34 | XMS REPORT ---
Author Author HILDA WOLF [facility] Address [address] [place] [address] Care Team Providers Care Devulcanizer Tender Name Role Phone HILDA WOLF Unavailable PROBLEMS Type Condition ICD9-CM Code VHK80-XV Code Onset Dates Condition Status SNOMED Code Problem Herniated nucleus pulposus M51.9 Active 57453663 Problem OCD (obsessive compulsive disorder) F42 Active 794019257 Problem Anxiety F41.9 Active 22430379 Problem Acquired hypothyroidism E03.9 Active 942971493 Problem Moderate episode of recurrent major depressive disorder F33.1 Active 564821123 Problem Cervicalgia M54.2 Active 23501572 Problem Polyneuropathy G62.9 Active 41820483 Problem Plantar fasciitis M72.2 Active 072570454 ALLERGIES No Information ENCOUNTERS Encounter Location Date Diagnosis [place] [id number] [place] [address] [id number] Mar, [address] [id number] Mar, Herniated nucleus pulposus M51.9 [place] [id number] [place] [address] [id number] February, Herniated nucleus pulposus M51.9 ; Polyneuropathy G62.9 and Anxiety F41.9 [place] [id number] [place] [address] [id number] Jan, Herniated nucleus pulposus M51.9 ; Moderate episode of recurrent major depressive disorder F33.1 and Acquired hypothyroidism E03.[address] [id number] Dec, Herniated nucleus pulposus M51.9 [place] [id number] [place] [address] [id number] Nov, Cervicalgia M54.2 and Herniated nucleus pulposus M51.9 [place] [id number], [place] [address] Oct, Herniated nucleus pulposus M51.9 and OCD (obsessive compulsive disorder) F42 [facility] [address] [id number] [place] [address] [id number] Oct, Herniated nucleus pulposus M51.9 [facility] [id number] [place] [address] [id number] Aug, Acquired hypothyroidism E03.9 [facility] [id number] [place] [address] [id number] Aug, Herniated nucleus pulposus M51.9 and Acquired hypothyroidism E03.9 [facility] [id number] [place] [address] Aug, [facility] [id number] [place] [address] [id number] Jul, Herniated nucleus pulposus M51.9 ; OCD (obsessive compulsive disorder) F42 and Pain of right upper extremity M79.601 [facility] [id number] [place] [address] [id number] Jul, Anxiety F41.9 [facility] [address] [place] [id number] [place] [address] [id number] Jul, [facility] [address] [id number] [place] [address] [id number] Jun, OCD (obsessive compulsive disorder) F42 ; Herniated nucleus pulposus M51.9 and Acute cystitis with hematuria N30.01 [facility] [id number][place] [id number] Jun, Anxiety F41.9 [facility] [id number] [place] [address] [id number] Jun, [facility] [address] [id number] [place] [address] [id number] May, Acquired hypothyroidism E03.9 [facility] [id number] [place] [address] [id number] May, Polyneuropathy G62.9 ; OCD (obsessive compulsive disorder) F42 ; Herniated nucleus pulposus M51.9 ; Screening for lipid disorders Z13.220 ; Long-term use of high- risk medication Z79.899 and Major depressive disorder, recurrent, moderate F33.1 [facility] [address] [id number][place] [id number] May, Dental examination Z01.20 [facility] [address] [id number][place] [id number] May, Herniated nucleus pulposus M51.9 [facility] [address] [id number] [place] [address] [id number] May, Herniated nucleus pulposus M51.9 and Anxiety F41.9 [place] [address] [id number] [place] [address] [id number] Apr, Herniated nucleus pulposus M51.9 and Cervicalgia M54.2 [facility] [address] [id number] [place] [address] [id number] Apr, Moderate episode of recurrent major depressive disorder F33.1 [facility] [address] [id number] [place] [address] [id number] Apr, Herniated nucleus pulposus M51.9 [facility] [address] [id number] [place] [address] [id number] Apr, Herniated nucleus pulposus M51.9 [facility] [id number] [place] [address] [id number] Mar, Moderate episode of recurrent major depressive disorder F33.1 [facility] [address] [id number] [place] [address] [id number] Mar, Anxiety F41.9 [facility] [address] [id number] [place] [address] [id number] Mar, [facility] [address] [id number] [place] [address] [id number] Mar, Herniated nucleus pulposus M51.9 and Cervicalgia M54.2 [facility] [id number] [place] [address] [id number] February, Acquired hypothyroidism E03.9 [place] [address] [id number] [place] [address] [id number] February, Polyneuropathy G62.9 ; Herniated nucleus pulposus M51.9 ; Cervicalgia M54.2 and Acquired hypothyroidism E03.9 [facility] [address] [id number] [place] [address] [id number] Jan, [facility] [address] [id number] [place] [address] [id number] Jan, Cervicalgia M54.2 and Moderate episode of recurrent major depressive disorder F33.1 [facility] [address] [id number] [place] [address] [id number] Dec, Cervicalgia M54.2 and Herniated nucleus pulposus M51.9 [place] [id number] [place] [address] [id number] Nov, Lymph nodes enlarged R59.9 [place] [id number] [place] [address] [id number] Oct, Cervicalgia M54.2 [facility] [id number] [place] [address] Sep, Polyneuropathy G62.9 [address] [place] [address] [id number] Sep, Cervicalgia M54.2 and Herniated nucleus pulposus M51.9 [place] [id number] [place] [address] [id number] Aug, Lumbar radiculopathy M54.16 and Spinal stenosis at L4-L5 level M48.06 [place] [id number] [place] [address] [id number] Aug, Cervicalgia M54.2 and Herniated nucleus pulposus M51.9 [address] [place] [address] [id number] Jul, [place] [address] [place] [address] [id number] [place] [address] [id number] Jun, Cervicalgia M54.2 and Herniated nucleus pulposus M51.9 [place] [id number] [place] [address] [id number] May, Plantar fasciitis M72.2 [facility] [id number], [place] [id number] May, [place] [id number] [place] [address] [id number] Apr, Screening for lipid disorders Z13.220 ; Long-term use of high-risk medication Z79.899 and Major depressive disorder, recurrent, moderate F33.1 [facility] [id number] [place] [address] [id number] Apr, [place] [address] [place] [id number] [place] [address] [id number] Mar, Herniated nucleus pulposus M51.9 and Cervicalgia M54.2 [place] [id number] [place] [address] [id number] Mar, Cervicalgia M54.2 and Herniated nucleus pulposus M51.9 [place] [id number] [place] [address] [id number] February, [place] [address] [place] [id number] [place] [address] [id number] February, Cervicalgia M54.2 and Herniated nucleus pulposus M51.9 [place] [id number] [place] [address] [id number] Dec, Syncope, unspecified syncope type R55 [place] [id number] [place] [address] [id number] Dec, Cervicalgia M54.2 ; Herniated nucleus pulposus M51.9 and Moderate episode of recurrent major depressive disorder F33.1 [address] [place] [address] [id number] Dec, [address] [place] [address] [id number] Dec, Herniated nucleus pulposus M51.9 and Cervicalgia M54.2 [place] [id number] [place] [address] [id number] Nov, [id number] [place] [address] [id number] Nov, Herniated nucleus pulposus M51.9 and OCD (obsessive compulsive disorder) F42 [facility] [id number], [place] [id number] Sep, Displacement of intervertebral disc, site unspecified, without myelopathy 722.2 ; Cervicalgia 723.1 and Hypothyroidism, unspecified type E03.9 [facility] [id number], [place] [id number] Sep, [facility] [address] [id number] [place] [address] [id number] Jun, Displacement of intervertebral disc, site unspecified, without myelopathy 722.2 and Cervicalgia 723.1 [facility] [address] [place] [id number] [place] [address] [id number] Mar, Displacement of intervertebral disc, site unspecified, without myelopathy 722.2 and Shingles 053.9 [facility] [id number] [place] [address] [id number] February, Shingles 053.9 [facility] [address] [id number] [place] [address] [id number] February, Displacement of intervertebral disc, site unspecified, without myelopathy 722.2 ; Tension headache 307.81 and Cervicalgia 723.1 [facility] [address] [id number] [place] [address] [id number] February, [facility] [id number] [place] [address] [id number] February, [facility] [id number] [place] [address] [id number] February, [facility] [id number] [place] [address] Jan, [facility] [id number] [place] [address] Jan, [facility] [id number] [place] [address] [id number] Jan, [facility] [id number] [place] [address] Jan, [facility] [address] [place] [address] Jan, [facility] [address] [id number] [place] [id number] Dec, [facility] [place] [facility] [address] [facility] [id number], [place] [address] Dec, [facility] [address] [facility] [id number] [place] [id number] Dec, [facility] [place] [facility] [address] [facility] [id number], [place] [address] Dec, [facility] [address] [facility] [id number] [place] [id number] Nov, [facility] [place] [facility] [address] [facility] [id number], [place] [address] Nov, [facility] [address] [facility] [id number] [place] [id number] Oct, [facility] [place] [facility] [address] [facility] [id number], [place] [address] Oct, [facility] [address] [facility] [id number] [place] [id number] Oct, [facility] [place] [facility] [address] [facility] [id number], [place] [address] Oct, [facility] [address] [facility] [id number][place] [id number] Oct, [facility] [address] [facility] [id number], [place] [id number] Oct, [facility] [place] [facility] [address] [facility] [id number], [place] [address] Oct, [facility] [place] [facility] [address] [facility] [id number], [place] [address] Oct, [facility] [address] [facility] [id number], [place] [id number] Oct, [facility] [place] [facility] [address] [facility] [id number], [place] [address] Oct, [facility] [address] [facility] [id number], [place] [id number] Oct, [facility] [address] [facility] [id number], [place] [address] Oct, [facility] [address] [facility] [id number], [place] [id number] Sep, [facility] [place] [facility] [address] [facility] [id number], [place] [address] Sep, [facility] [address] [facility] [id number], [place] [id number] Aug, [facility] [place] [facility] [address] [facility] [id number] [place] [address] Aug, [facility] [place] [facility] [address] [facility] [id number], [place] [address] Aug, [facility] [address] [id number], [place] [id number] Aug, [facility] [address] [facility] [id number], [place] [id number] Aug, [facility] [place] [facility] [address] [id number], [place] [address] Aug, [facility] [address] [facility] [id number], [place] [id number] Jul, [facility] [place] [facility] [address] [facility] [id number], [place] [address] Jul, [facility] [address] [facility] [id number], [place] [id number] Jul, [facility] [place] [facility] [address] [facility] [id number], [place] [address] Jul, [facility] [place] [facility] [address] [facility] [id number], [place] [address] Apr, [facility] [address] [facility] [id number], [place] [id number] Apr, [facility] [place] [facility] [address] [facility] [id number], [place] [address] Apr, [facility] [address] [id number] [place] [id number] Apr, [facility] [place] [facility] [address] [id number] [place] [address] Apr, [facility] [address] [id number] [place] [id number] Mar, [facility] [place] [facility] [address] [id number] [place] [address] Mar, [facility] [address] [id number] [place] [id number] Mar, [facility] [place] [facility] [address] [id number] [place] [address] Mar, [facility] [address] [facility] [id number] [place] [id number] February, [facility] [place] [facility] [address] [facility] [id number] [place] [address] February, [facility] [place] [facility] [address] [facility] [id number], [place] [address] February, [facility] [address] [facility] [id number] [place] [id number] February, [facility] [place] [facility] [address] [facility] [id number], [place] [address] February, [facility] [address] [facility] [id number] [place] [id number] February, [facility] [place] [facility] [address] [facility] [id number], [place] [address] February, [facility] [place] [facility] [address] [facility] [id number] [place] [address] Jan, [facility] [place] [facility] [address] [facility] [id number] [place] [address] Jan, [facility] [place] [facility] [address] [facility] [id number] [place] [address] Jan, [facility] [address] [facility] [id number], [place] [id number] Jan, [facility] [place] [facility] [address] [id number] [place] [address] Jan, [facility] [address] [id number] [place] 9569930[address] Jan, [facility] [place] [facility] [address] [facility] [id number] [place] [address] Jan, [facility] [address] [id number] [place] [id number] Jan, [facility] [place] [facility] [address] [id number] [place] [address] Jan, [facility] [place] [facility] [address] [facility] [id number] [place] [address] Jan, [facility] [place] [facility] [address] [facility] [id number] [place] [address] Jan, [facility] [place] [facility] [address] [id number] [place] [address] Jan, [facility] [address] [id number], [place] [id number] Jan, [facility] [address] [id number] [place] [id number] Jan, [facility] [place] [facility] [address] [facility] [id number], [place] [address] Jan, [facility] [address] [id number], [place] [id number] Jan, [facility] [place] [facility] [address] [facility] [id number], [place] [address] Jan, [facility] [address] [id number] [place] [id number] Jan, [facility] [place] [facility] [address] [facility] [id number], [place] [address] Jan, [facility] [address] [facility] [id number] [place] [id number] Dec, [facility] [place] [facility] [address] [facility] [id number], [place] [address] Dec, [facility] [address] [id number] [place] 040904026 Dec, [facility] [place] [facility] [address] [facility] [id number], [place] [address] Dec, [facility] [address] [id number] [place] [id number] Dec, [facility] [place] [facility] [address] [facility] [id number], [place] [address] Dec, [facility] [address] [id number] [place] [id number] Dec, [facility] [place] [facility] [address] [facility] [id number] [place] [address] Dec, [facility] [address] [id number] [place] 7056647[address] Nov, [facility] [place] [facility] [address] [id number], [place] [address] Nov, [facility] [address] [facility] [id number], [place] [id number] Nov, [facility] [place] [facility] [address] [id number], [place] [address] Nov, [facility] [place] [facility] [address] [id number], [place] [address] Nov, [facility] [place] [facility] [address] [id number], [place] [address] Nov, [facility] [place] [facility] [address] [facility] [id number], [place] [address] Nov, [facility] [place] [facility] [address] [facility] [id number], [place] [address] Nov, [facility] [address] [id number], [place] 810307089 Oct, [facility] [place] [facility] [address] [id number], [place] [address] Oct, [facility] [address] [facility] [id number], [place] [address] Oct, [facility] [address] [id number] [place] [id number] Oct, [facility] [place] [facility] [address] [facility] [id number], [place] [address] Oct, [facility] [address] [id number] [place] [id number] Oct, [facility] [address] [facility] [id number] [place] [address] Oct, [facility] [address] [id number] [place] 1008[address] Aug, [facility] [address] [facility] [id number], [place] [address] Aug, [facility] [address] [id number], [place] [id number] Jul, [facility] [address]00565100[address], [place] [address] Mar, [facility] [address] [id number], [place] 857057963 Mar, [facility] [address] [facility] [id number], [place] [address] Mar, [facility] [address] [id number], [place] 584315763 Jan, [facility] [address] [id number], [place] 836121187 Sep, [facility] [place] [facility] [address] [facility] [id number], [place] [address] Sep, [facility] [address] [id number] [place] 3198780[address] May, [facility] [address] [id number] [place] [id number] Apr, [facility] [address] [id number] [place] [id number] Mar, [facility] [address] [id number], [place] [address] Mar, [facility] [address] [id number], [place] 56[address] February, [facility] [address] [id number], [place] [id number] Jan, [facility] [address]65100[place], [place] [address] Mar, [facility] [address] [id number], [place] [address] Sep, [facility] [id number] [place] [id number] Aug, [facility] [id number] [place] [id number] Aug, [facility] [id number] [place] [id number] Aug, [facility] [id number] [place] [id number] Aug, [facility] [id number] [place] [id number] Aug, [facility] [id number] [address] Jul, [facility] [id number] [address] Apr, IMMUNIZATIONS No Known Immunizations SOCIAL HISTORY Never Assessed REASON FOR VISIT 10/18/17-Klonopin refill PLAN OF CARE VITAL SIGNS MEDICATIONS Medication Instructions Dosage Frequency Start Date End Date Duration Status Phenergan 25 mg oral 3 times a day 1 tablet 8h May, Active Clonazepam 0.5 MG Orally Twice a day prn .5-1 tablet Mar, Active RESULTS No Results PROCEDURES No [...]
--- OUTSIDE RECORDS SUMMARY | 2019-04-19 10:34 | XMS REPORT ---
Author Author HILDA WOLF [facility] Address [address] [place] [address] Care Team Providers Care Desizing Machine Operator Name Role Phone HILDA WOLF Unavailable PROBLEMS Type Condition ICD9-CM Code TWC32-VS Code Onset Dates Condition Status SNOMED Code Problem Herniated nucleus pulposus M51.9 Active 23619825 Problem OCD (obsessive compulsive disorder) F42 Active 269237248 Problem Anxiety F41.9 Active 64489202 Problem Acquired hypothyroidism E03.9 Active 960634815 Problem Moderate episode of recurrent major depressive disorder F33.1 Active 805672599 Problem Cervicalgia M54.2 Active 10336231 Problem Polyneuropathy G62.9 Active 22985289 Problem Plantar fasciitis M72.2 Active [id number] ALLERGIES No Information ENCOUNTERS Encounter Location Date Diagnosis [id number] [place] [address] [id number] February, Herniated nucleus pulposus M51.9 ; Polyneuropathy G62.9 and Anxiety F41.9 [place] [id number] [place] [address] [id number] Jan, Herniated nucleus pulposus M51.9 ; Moderate episode of recurrent major depressive disorder F33.1 and Acquired hypothyroidism E03.[id number] [place] [address] [id number] Dec, Herniated nucleus pulposus M51.9 [place] [id number] [place] [address] [id number] Nov, Cervicalgia M54.2 and Herniated nucleus pulposus M51.9 [place] [id number] [place] [address] [id number] Oct, Herniated nucleus pulposus M51.9 and OCD (obsessive compulsive disorder) F42 [place] [id number] [place] [address] [id number] Oct, Herniated nucleus pulposus M51.9 [facility] [id number] [place] [address] [id number] Aug, Acquired hypothyroidism E03.9 [facility] [id number] [place] [address] [id number] Aug, Herniated nucleus pulposus M51.9 and Acquired hypothyroidism E03.9 [facility] [id number] [place] [address] Aug, [facility] [id number] [place] [address] [id number] Jul, Herniated nucleus pulposus M51.9 ; OCD (obsessive compulsive disorder) F42 and Pain of right upper extremity M79.601 [facility] [id number] [place] [address] [id number] Jul, Anxiety F41.9 [facility] [id number] [place] [address] [id number] Jul, [facility] [id number] [place] [address] [id number] Jun, OCD (obsessive compulsive disorder) F42 ; Herniated nucleus pulposus M51.9 and Acute cystitis with hematuria N30.01 [facility] [id number] [place] [address] [id number] Jun, Anxiety F41.9 [facility] [id number] [place] [address] [id number] Jun, [place] [id number] [place] [address] [id number] May, Acquired hypothyroidism E03.9 [facility] [id number] [place] [address] [id number] May, Polyneuropathy G62.9 ; OCD (obsessive compulsive disorder) F42 ; Herniated nucleus pulposus M51.9 ; Screening for lipid disorders Z13.220 ; Long-term use of high- risk medication Z79.899 and Major depressive disorder, recurrent, moderate F33.1 [facility] [address] [id number] May, Dental examination Z01.20 [facility] [id number] [place] [address] [id number] May, Herniated nucleus pulposus M51.9 [place] [id number] [place] [address] [id number] May, Herniated nucleus pulposus M51.9 and Anxiety F41.9 [place] [id number] [place] [address] [id number] Apr, Herniated nucleus pulposus M51.9 and Cervicalgia M54.2 [place] [id number] [place] [address] [id number] Apr, Moderate episode of recurrent major depressive disorder F33.1 [place] [address] [id number] [place] [address] [id number] Apr, Herniated nucleus pulposus M51.9 [place] [id number] [place] [address] [id number] Apr, Herniated nucleus pulposus M51.9 [place] [id number] [place] [address] [id number] Mar, Moderate episode of recurrent major depressive disorder F33.1 [place] [address] [id number] [place] [address] [id number] Mar, Anxiety F41.9 [place] [id number] [place] [address] [id number] Mar, [place] [id number] [place] [address] [id number] Mar, Herniated nucleus pulposus M51.9 and Cervicalgia M54.2 [address] [place] [address] [id number] February, Acquired hypothyroidism E03.[address] [id number] February, Polyneuropathy G62.9 ; Herniated nucleus pulposus M51.9 ; Cervicalgia M54.2 and Acquired hypothyroidism E03.9 [place] [id number] [place] [address] [id number] Jan, [facility] [id number] [id number] Jan, Cervicalgia M54.2 and Moderate episode of recurrent major depressive disorder F33.1 [facility] [id number] [place] [address] [id number] Dec, Cervicalgia M54.2 and Herniated nucleus pulposus M51.9 [facility] [id number] [place] [address] [phone] Nov, Lymph nodes enlarged R59.9 [facility] [address] [address] [id number] [place] [address] [id number] Oct, Cervicalgia M54.2 [facility] [id number] [place] [address] Sep, Polyneuropathy G62.9 [facility] [id number] [place] [address] [id number] Sep, Cervicalgia M54.2 and Herniated nucleus pulposus M51.9 [facility] [address] [address] [id number] [place] [address] [id number] Aug, Lumbar radiculopathy M54.16 and Spinal stenosis at L4-L5 level M48.06 [facility] [id number] [place] [address] [id number] Aug, Cervicalgia M54.2 and Herniated nucleus pulposus M51.9 [facility] [address] [place] [address] [id number] Jul, [facility] [address] [id number] [place] [address] [id number] Jun, Cervicalgia M54.2 and Herniated nucleus pulposus M51.9 [place] [id number] [place] [address] [id number] May, Plantar fasciitis M72.2 [facility] [id number] [place] [address] [id number] May, [facility] [id number] [place] [address] [id number] Apr, Screening for lipid disorders Z13.220 ; Long-term use of high-risk medication Z79.899 and Major depressive disorder, recurrent, moderate F33.1 [place] [id number] [place] [address] [id number] Apr, [place] [id number] [place] [address] [id number] Mar, Herniated nucleus pulposus M51.9 and Cervicalgia M54.2 [place] [id number] [place] [address] [id number] Mar, Cervicalgia M54.2 and Herniated nucleus pulposus M51.9 [place] [id number] [place] [address] [id number] February, [place] [id number] [place] [address] [id number] February, Cervicalgia M54.2 and Herniated nucleus pulposus M51.9 [place] [id number] [place] [address] [id number] Dec, Syncope, unspecified syncope type R55 [place] [id number] [place] [address] [id number] Dec, Cervicalgia M54.2 ; Herniated nucleus pulposus M51.9 and Moderate episode of recurrent major depressive disorder F33.1 [address] [place] [address] [id number] Dec, [place] [id number] [place] [address] [id number] Dec, Herniated nucleus pulposus M51.9 and Cervicalgia M54.2 [address] [place] [address] [id number] Nov, [place] [id number] [place] [address] [id number] Nov, Herniated nucleus pulposus M51.9 and OCD (obsessive compulsive disorder) F42 [place] [id number] [place] [address] [id number] Sep, Displacement of intervertebral disc, site unspecified, without myelopathy 722.2 ; Cervicalgia 723.1 and Hypothyroidism, unspecified type E03.9 [facility] [id number][place] [id number] Sep, [facility] [id number] [place] [address] [id number] Jun, Displacement of intervertebral disc, site unspecified, without myelopathy 722.2 and Cervicalgia 723.1 [facility] [id number] [place] [address] [id number] Mar, Displacement of intervertebral disc, site unspecified, without myelopathy 722.2 and Shingles 053.9 [facility] [id number] [place] [address] [id number] February, Shingles 053.9 [facility] [id number] [place] [address] [phone] February, Displacement of intervertebral disc, site unspecified, without myelopathy 722.2 ; Tension headache 307.81 and Cervicalgia 723.1 [facility] [id number] [place] [address] [id number] February, [facility] [id number] [place] [address] [id number] February, [facility] [id number] [place] [address] [id number] February, [facility] [id number] [place] [address] Jan, [facility] [address] [place] [address] Jan, [facility] [id number] [place] [address] [id number] Jan, [facility] [id number] [place] [phone] 14 Jan, 2015 [facility] [id number] [place] [phone] 13 Jan, 2015 [facility] [id number] [place] [address] [id number] Dec, [facility] [id number] [place] [address] Dec, [facility] [address] [id number] [place] [id number] Dec, [facility] [place] [facility] [address] [id number], [place] [address] Dec, [facility] [address] [id number] [place] [id number] Nov, [facility] [place] [facility] [address] [id number], [place] [address] Nov, [facility] [address] [id number] [place] [id number] Oct, [facility] [place] [facility] [address] [id number], [place] [address] Oct, [facility] [address] [id number][place] [phone] Oct, [facility] [place] [facility] [address] [facility] [id number], [place] [address] Oct, [facility] [address] [id number][place] [id number] Oct, [facility] [address] [id number] [place] [id number] Oct, [facility] [place] [facility] [address] [facility] [id number], [place] [address] Oct, [facility] [place] [facility] [address] [facility] [id number], [place] [address] Oct, [facility] [address] [id number][place] [id number] Oct, [facility] [place] [facility] [address] [id number], [place] [address] Oct, [facility] [address] [id number][place] [id number] Oct, [facility] [place] [facility] [address] [facility] [id number], [place] [address] Oct, [facility] [address] [id number] [place] [id number] Sep, [facility] [place] [facility] [address] [id number] [place] [address] Sep, [facility] [address] [id number] [place] [id number] Aug, [facility] [place] [facility] [address] [facility] [id number], [place] [address] Aug, [facility] [place] [facility] [address] [facility] [id number], [place] [address] Aug, [facility] [address] [id number] [place] [id number] Aug, [facility] [address] [id number] [place] [id number] Aug, [facility] [place] [facility] [address] [facility] [id number], [place] [address] Aug, [facility] [address] [facility] [id number], [place] [id number] Jul, [facility] [place] [facility] [address] [id number], [place] [address] Jul, [facility] [address] [facility] [id number] [place] [id number] Jul, [facility] [place] [facility] [address] [facility] [id number], [place] [address] Jul, [facility] [place] [facility] [address] [facility] [id number], [place] [address] Apr, [facility] [address] [id number], [place] [id number] Apr, [facility] [place] [facility] [address] [id number], [place] [address] Apr, [facility] [address] [facility] [id number][place] [id number] Apr, [facility] [place] [facility] [address] [facility] [id number], [place] [address] Apr, [facility] [address] [id number] [place] [id number] Mar, [facility] [place] [facility] [address] [id number] [place] [address] Mar, [facility] [address] [id number] [place] [id number] Mar, [facility] [place] [facility] [address] [facility] [id number] [place] [address] Mar, [facility] [address] [facility] [id number] [place] [id number] February, [facility] [place] [facility] [address] [facility] [id number] [place] [address] February, [facility] [place] [facility] [address] [facility] [id number] [place] [address] February, [facility] [address] [facility] [id number] [place] [id number] February, [facility] [place] [facility] [address] [facility] [id number], [place] [address] February, [facility] [address] [facility] [id number] [place] [id number] February, [facility] [place] [facility] [address] [facility] [id number], [place] [address] February, [facility] [place] [facility] [address] [facility] [id number] [place] [address] Jan, [facility] [place] [facility] [address] [facility] [id number], [place] [address] Jan, [facility] [place] [facility] [address] [facility] [id number] [place] [address] Jan, [facility] [address] [facility] [id number], [place] 043[address] Jan, [facility] [place] [facility] [address] [facility] [id number] [place] [address] Jan, [facility] [address] [facility] [id number][place] [id number] Jan, [facility] [place] [facility] [address] [id number] [place] [address] 2014 [facility] [address] [facility] [id number] [place] [id number] Jan, [facility] [place] [facility] [address] [facility] [id number] [place] [address] Jan, [facility] [place] [facility] [address] [facility] [id number] [place] [address] Jan, [facility] [place] [facility] [address] [facility] [id number] [place] [address] Jan, [facility] [place] [facility] [address] [facility] [id number] [place] [address] Jan, [facility] [address] [id number] [place] [id number] Jan, [facility] [address] [facility] [id number] [place] [id number] Jan, [facility] [place] [facility] [address] [facility] [id number], [place] [address] Jan, [facility] [address] [facility] [id number] [place] [id number] Jan, [facility] [place] [facility] [address] [facility] [id number], [place] [address] Jan, [facility] [address] [facility] [id number] [place] 847739408 Jan, [facility] [place] [facility] [address] [facility] [id number], [place] [address] Jan, [facility] [address] [id number] [place] 9756[address] Dec, [facility] [place] [facility] [address] [facility] [id number] [place] [address] Dec, [facility] [address] [facility] [id number] [place] [id number] Dec, [facility] [place] [facility] [address] [facility] [id number], [place] [address] Dec, [facility] [address] [id number] [place] 980[address] Dec, [facility] [place] [facility] [address] [facility] [id number], [place] [address] Dec, [facility] [address] [id number] [place] 5130[address]208 Dec, [facility] [place] [facility] [address] [facility] [id number] [place] [address] Dec, [facility] [address] [id number] [place] [id number] Nov, [facility] [place] [facility] [address] [facility] [id number], [place] [address] Nov, [facility] [address] [facility] [id number] [place] [id number] Nov, [facility] [place] [facility] [address] [facility] [id number], [place] [address] Nov, [facility] [place] [facility] [address] [facility] [id number] [place] [address] Nov, [facility] [place] [facility] [address] [facility] [id number], [place] [address] Nov, [facility] [place] [facility] [address] [facility] [id number], [place] [address] Nov, [facility] [place] [facility] [address] [facility] [id number], [place] [address] Nov, [facility] [address] [facility] [id number], [place] [id number] Oct, [facility] [place] [facility] [address] [facility] [id number], [place] [address] Oct, [facility] [place] [facility] [address] [facility] [id number] [place] [address] Oct, [facility] [address] [facility] [id number], [place] [id number] Oct, [facility] [place] [facility] [address] [facility] [id number], [place] [address] Oct, [facility] [address] [id number][place] [id number] Oct, [facility] [address] [facility] [id number], [place] [address] Oct, [facility] [address] [id number][place] [id number] Aug, [facility] [address] [facility] [id number], [place] [address] Aug, [facility] [address] [id number][place] [id number] Jul, [facility] [address] [facility] [id number], [place] [address] Mar, [facility] [address] [id number][place] [id number] Mar, [facility] [id number], [place] [address] Mar, [facility] [address] [id number][place] [id number] Jan, [facility] [address] [id number][place] [id number] Sep, [facility] [address] [id number], [place] [address] Sep, [facility] [address] [id number][place] [id number] May, [facility] [address] [id number] [place] [id number] Apr, [facility] [address] [id number] [place] [id number] Mar, [facility] [address] [id number] [place] [id number] Mar, [facility] [address] [id number] [place] [id number] February, [facility] [address] [id number][place] [id number] Jan, [facility] [id number], [place] [address] Mar, [facility] [id number], [place] [address] Sep, [facility] [id number], [place] [address] Aug, [facility] [id number], [place] [address] Aug, [facility] [id number], [place] [address] Aug, [facility] [address], [place] [address] Aug, [facility] [address], [place] [address] Aug, [facility] [address], [place] [address] Jul, [facility] [id number], [place] [address] Apr, IMMUNIZATIONS No Known Immunizations SOCIAL HISTORY Never Assessed REASON FOR VISIT RX-Klonopin refill PLAN OF CARE VITAL SIGNS MEDICATIONS Medication Instructions Dosage Frequency Start Date End Date Duration Status Clonazepam 0.5 MG Orally Twice a day prn .5-1 tablet Mar, 0 days Active RESULTS No Results PROCEDURES [...]
--- OUTSIDE RECORDS SUMMARY | 2019-04-19 10:35 | XMS REPORT ---
Author Author HILDA WOLF [facility] Address [address] [place] [address] Care Team Providers Care Training And Development Specialist Name Role Phone HILDA WOLF Unavailable PROBLEMS Type Condition ICD9-CM Code GTR38-CF Code Onset Dates Condition Status SNOMED Code Problem Herniated nucleus pulposus M51.9 Active 48315483 Problem OCD (obsessive compulsive disorder) F42 Active 886629135 Problem Anxiety F41.9 Active 83756186 Problem Acquired hypothyroidism E03.9 Active 864729643 Problem Moderate episode of recurrent major depressive disorder F33.1 Active 805240244 Problem Cervicalgia M54.2 Active 71862708 Problem Polyneuropathy G62.9 Active 67328642 Problem Plantar fasciitis M72.2 Active 206663263 ALLERGIES Substance Reaction Event Type Date Status Nortriptyline HCl headache, night fu Drug Allergy Mar, Active Lamictal hives Drug Allergy Mar, Active Clindamycin HCl hives Drug Allergy Mar, Active Latex hives Non Drug Allergy Mar, Active ENCOUNTERS Encounter Location Date Diagnosis [id number] [place] [address] [id number] Dec, [place] [id number] [place] [address] [id number] Dec, Herniated nucleus pulposus M51.9 [place] [id number] [place] [address] [id number] Nov, Cervicalgia M54.2 and Herniated nucleus pulposus M51.9 [place] [id number] [place] [address] [id number] Oct, Herniated nucleus pulposus M51.9 and OCD (obsessive compulsive disorder) F42 [address] [place] [address] [id number] Oct, Herniated nucleus pulposus M51.9 [place] [id number] [place] [address] [id number] Aug, Acquired hypothyroidism E03.9 [facility] [address] [place] [id number] [place] [address] [id number] Aug, Herniated nucleus pulposus M51.9 and Acquired hypothyroidism E03.9 [facility] [address], [place] [address] Aug, [facility] [id number] [place] [address] [id number] Jul, Herniated nucleus pulposus M51.9 ; OCD (obsessive compulsive disorder) F42 and Pain of right upper extremity M79.601 [facility] [address] [address] [id number] [place] [address] [id number] Jul, Anxiety F41.9 [facility] [id number] [place] [address] [id number] Jul, [facility] [id number] [place] [address] [id number] Jun, OCD (obsessive compulsive disorder) F42 ; Herniated nucleus pulposus M51.9 and Acute cystitis with hematuria N30.01 [facility] [id number] [place] [address] [id number] Jun, Anxiety F41.9 [facility] [id number] [place] [address] [id number] Jun, [facility] [id number] [place] [address] [id number] May, Acquired hypothyroidism E03.9 [facility] [id number] [place] [address] [id number] May, Polyneuropathy G62.9 ; OCD (obsessive compulsive disorder) F42 ; Herniated nucleus pulposus M51.9 ; Screening for lipid disorders Z13.220 ; Long-term use of high- risk medication Z79.899 and Major depressive disorder, recurrent, moderate F33.1 [facility] [address] [id number] [place] [id number] May, Dental examination Z01.20 [facility] [id number][place] [id number] May, Herniated nucleus pulposus M51.9 [facility] [id number] [place] [address] [id number] May, Herniated nucleus pulposus M51.9 and Anxiety F41.9 [facility] [address] [id number][place] [id number] Apr, Herniated nucleus pulposus M51.9 and Cervicalgia M54.2 [facility] [address] [id number] [place] [address] [id number] Apr, Moderate episode of recurrent major depressive disorder F33.1 [facility] [id number] [place] [address] [id number] Apr, Herniated nucleus pulposus M51.9 [facility] [id number] [place] [address] [id number] Apr, Herniated nucleus pulposus M51.9 [place] [address] [id number] [place] [address] [id number] Mar, Moderate episode of recurrent major depressive disorder F33.1 [place] [id number] [place] [address] [id number] Mar, Anxiety F41.9 [place] [id number] [place] [address] [id number] Mar, [place] [id number] [place] [address] [id number] Mar, Herniated nucleus pulposus M51.9 and Cervicalgia M54.2 [place] [id number] [place] [address] [id number] February, Acquired hypothyroidism E03.9 [place] [id number] [place] [address] [id number] February, Polyneuropathy G62.9 ; Herniated nucleus pulposus M51.9 ; Cervicalgia M54.2 and Acquired hypothyroidism E03.9 [facility] [id number], [place] [id number] Jan, [place] [address] [place] [id number] [place] [address] [id number] Jan, Cervicalgia M54.2 and Moderate episode of recurrent major depressive disorder F33.1 [facility] [id number] [place] [address] [id number] Dec, Cervicalgia M54.2 and Herniated nucleus pulposus M51.9 [facility] [id number], [place] [id number] Nov, Lymph nodes enlarged R59.9 [facility] [address] [place] [address] [id number] [place] [address] [id number] Oct, Cervicalgia M54.2 [facility] [address] [id number], [place] [address] Sep, Polyneuropathy G62.9 [facility] [id number] [place] [address] [id number] Sep, Cervicalgia M54.2 and Herniated nucleus pulposus M51.9 [place] [address] [place] [id number] [place] [address] [id number] Aug, Lumbar radiculopathy M54.16 and Spinal stenosis at L4-L5 level M48.06 [facility] [id number] [place] [address] [id number] Aug, Cervicalgia M54.2 and Herniated nucleus pulposus M51.9 [facility] [id number] [place] [address] [id number] Jul, [place] [id number] [place] [address] [id number] Jun, Cervicalgia M54.2 and Herniated nucleus pulposus M51.9 [facility] [id number] [place] [address] [id number] May, Plantar fasciitis M72.2 [facility] [id number] [place] [address] [id number] May, [facility] [address] [id number] [place] [address] [id number] Apr, Screening for lipid disorders Z13.220 ; Long-term use of high-risk medication Z79.899 and Major depressive disorder, recurrent, moderate F33.1 [facility] [id number], [place] [id number] Apr, [place] [id number] [place] [address] [id number] Mar, Herniated nucleus pulposus M51.9 and Cervicalgia M54.2 [facility] [id number] [place] [address] [id number] Mar, Cervicalgia M54.2 and Herniated nucleus pulposus M51.9 [place] [address] [place] [id number] [place] [address] [id number] February, [place] [id number] [place] [address] [id number] February, Cervicalgia M54.2 and Herniated nucleus pulposus M51.9 [place] [id number] [place] [address] [id number] Dec, Syncope, unspecified syncope type R55 [place] [id number] [place] [address] [id number] Dec, Cervicalgia M54.2 ; Herniated nucleus pulposus M51.9 and Moderate episode of recurrent major depressive disorder F33.1 [place] [id number] [place] [address] [id number] Dec, [place] [id number] [place] [address] [id number] Dec, Herniated nucleus pulposus M51.9 and Cervicalgia M54.2 [place] [id number] [place] [address] [id number] Nov, [place] [id number] [place] [address] [id number] Nov, Herniated nucleus pulposus M51.9 and OCD (obsessive compulsive disorder) F42 [place] [id number] [place] [address] [id number] Sep, Displacement of intervertebral disc, site unspecified, without myelopathy 722.2 ; Cervicalgia 723.1 and Hypothyroidism, unspecified type E03.9 [place] [id number] [place] [address] [id number] Sep, [facility] [address] [id number] [id number] Jun, Displacement of intervertebral disc, site unspecified, without myelopathy 722.2 and Cervicalgia 723.1 [facility] [id number], [place] [id number] Mar, Displacement of intervertebral disc, site unspecified, without myelopathy 722.2 and Shingles 053.9 [facility] [id number], [place] [id number] February, Shingles 053.9 [facility] [id number], [place] [id number] February, Displacement of intervertebral disc, site unspecified, without myelopathy 722.2 ; Tension headache 307.81 and Cervicalgia 723.1 [facility] [id number], [place] [id number] February, [facility] [id number], [place] [id number] February, [facility] [id number], [place] [id number] February, [facility] [address] [id number] [place] [address] Jan, [facility] [id number] [place] [address] Jan, [facility] [id number], [place] [id number] Jan, [facility] [address] [place] [id number] [place] [address] 14 Jan, 2015 [facility] [id number] [place] [phone] Jan, [facility] [id number], [place] [id number] Dec, [facility] [id number] [place] [address] Dec, [facility] [address] [id number] [id number] Dec, [facility] [place] [facility] [address] [id number], [place] [address] Dec, [facility] [address] [id number] [place] [id number] Nov, [facility] [place] [facility] [address] [facility] [id number], [place] [address] Nov, [facility] [address] [id number][place] [id number] Oct, [facility] [place] [facility] [address] [id number] [place] [address] Oct, [facility] [address] [facility] [id number], [place] [id number] Oct, [facility] [place] [facility] [address] [facility] [id number], [place] [address] Oct, [facility] [address] [id number], [place] [id number] Oct, [facility] [address] [id number] [place] [id number] Oct, [facility] [place] [facility] [address] [facility] [id number], [place] [address] Oct, [facility] [place] [facility] [address] [facility] [id number], [place] [address] Oct, [facility] [address] [id number], [place] [id number] Oct, [facility] [place] [facility] [address] [id number], [place] [address] Oct, [facility] [address] [id number] [place] [id number] Oct, [facility] [place] [facility] [address] [facility] [id number], [place] [address] Oct, [facility] [address] [facility] [id number], [place] [id number] Sep, [facility] [place] [facility] [address] [facility] [id number] [place] [address] Sep, [facility] [address] [id number] [place] [id number] Aug, [facility] [place] [facility] [address] [facility] [id number] [place] [address] Aug, [facility] [place] [facility] [address] [facility] [id number] [place] [address] Aug, [facility] [address] [id number] [place] [id number] Aug, [facility] [address] [id number] [place] [id number] Aug, [facility] [place] [facility] [address] [facility] [id number] [place] [address] Aug, [facility] [address] [facility] [id number] [place] [id number] Jul, [facility] [place] [facility] [address] [facility] [id number], [place] [address] Jul, [facility] [address] [facility] [id number] [place] [id number] Jul, [facility] [place] [facility] [address] [facility] [id number], [place] [address] Jul, [facility] [place] [facility] [address] [facility] [id number], [place] [address] Apr, [facility] [address] [facility] [id number], [place] [id number] Apr, [facility] [place] [facility] [address] [facility] [id number] [place] [address] Apr, [facility] [address] [facility] [id number] [place] [id number] Apr, [facility] [place] [facility] [address] [facility] [id number] [place] [address] Apr, [facility] [address] [facility] [id number], [place] [id number] Mar, [facility] [place] [facility] [address] [id number], [place] [address] Mar, [facility] [address] [facility] [id number] [place] [id number] Mar, [facility] [place] [facility] [address] [facility] [id number] [place] [address] Mar, [facility] [address] [facility] [id number] [place] [id number] February, [facility] [place] [facility] [address] [facility] [id number] [place] [address] February, [facility] [place] [facility] [address] [facility] [id number] [place] [address] February, [facility] [address] [facility] [id number] [place] [id number] February, [facility] [place] [facility] [address]00565100[place], [place] [address] February, [facility] [address] [id number], [place] 8869[address]674 February, [facility] [place] [facility] [address] [facility] [id number], [place] [address] February, [facility] [place] [facility] [address] [facility] [id number], [place] [address] Jan, [facility] [place] [facility] [address] [facility] [id number], [place] [address] Jan, [facility] [place] [facility] [address] [facility] [id number], [place] [address] Jan, [facility] [address] [facility] [id number] [place] [id number] Jan, [facility] [place] [facility] [address] [facility] [id number], [place] [address] Jan, [facility] [address] [facility] [id number] [place] [id number] Jan, [facility] [place] [facility] [address] [facility] [id number], [place] [address] Jan, [facility] [address] [id number] [place] [id number] Jan, [facility] [place] [facility] [address] [id number] [place] [address] Jan, [facility] [place] [facility] [address] [id number] [place] [address] Jan, [facility] [place] [facility] [address] [id number] [place] [address] Jan, [facility] [place] [facility] [address] [id number] [place] [address] Jan, [facility] [address] [id number] [place] [id number] Jan, [facility] [address] [id number] [place] [id number] Jan, [facility] [place] [facility] [address] [id number] [place] [address] Jan, [facility] [address] [id number] [place] 470972303 Jan, [facility] [place] [facility] [address] [id number] [place] [address] Jan, [facility] [address] [id number] [place] [id number] Jan, [facility] [place] [facility] [address] [id number], [place] [address] Jan, [facility] [address] [id number] [place] [id number] Dec, [facility] [place] [facility] [address] [id number], [place] [address] Dec, [facility] [address] [id number] [place] [id number] Dec, [facility] [place] [facility] [address] [id number] [place] [address] Dec, [facility] [address] [id number] [place] [id number] Dec, [facility] [place] [facility] [address] [facility] [id number], [place] [address] Dec, [facility] [address] [facility] [id number], [place] 106088453 Dec, [facility] [place] [facility] [address] [facility] [id number], [place] [address] Dec, [facility] [address] [facility] [id number], [place] [id number] Nov, [facility] [place] [facility] [address] [facility] [id number], [place] [address] Nov, [facility] [address] [facility] [id number], [place] 900201437 Nov, [facility] [place] [facility] [address]00565100[place], [place] [address] Nov, [facility] [place] [facility] [address]00565100[place], [place] [address] Nov, [facility] [place] [facility] [address] [id number], [place] [address] Nov, [facility] [place] [facility] [address]00565100[place], [place] [address] Nov, [facility] [place] [facility] [address]00565100[place], [place] [address] Nov, [facility] [address] [facility] [id number], [place] 837993029 Oct, [facility] [place] [facility] [address] [facility] [id number], [place] [address] Oct, [facility] [place] [facility] [address] [facility] [id number], [place] [address] Oct, [facility] [address] [facility] [id number], [place] 815182495 Oct, [facility] [place] [facility] [address] [facility] [id number] [place] [address] Oct, [facility] [address] [id number] [place] [id number] Oct, [facility] [address] [facility] [id number], [place] [address] Oct, [facility] [address] [id number] [place] [id number] Aug, [facility] [address] [facility] [id number], [place] [address] Aug, [facility] [address] [id number][place] [id number] Jul, [facility] [address] [facility] [id number], [place] [address] Mar, [facility] [address] [id number][place] [id number] Mar, [facility] [id number], [place] [address] Mar, [facility] [address] [id number][place] [id number] Jan, [facility] [address] [id number] [place] [id number] Sep, [facility] [address] [facility] [id number], [place] [address] Sep, [facility] [address] [id number][place] [id number] May, [facility] [address] [id number] [place] [id number] Apr, [facility] [address] [id number] [place] [id number] Mar, [facility] [address] [id number] [place] [id number] Mar, [facility] [address] [id number] [place] [id number] February, [facility] [address] [id number] [place] [id number] Jan, [facility] [address] [id number], [place] [address] Mar, [facility] [address] [id number], [place] [address] Sep, [facility] [id number], [place] [address] Aug, [facility] [id number], [place] [address] Aug, [facility] [id number], [place] [address] Aug, [facility] [id number], [place] [address] Aug, [facility] [id number], [place] [address] Aug, [facility] [id number], [place] [address] Jul, [facility] [address] [id number], [place] [address] Apr, IMMUNIZATIONS No Known Immunizations SOCIAL HISTORY Never Assessed REASON FOR VISIT here to follow up on anxiety, situation with daughter has not improved. he Hernandez PLAN OF CARE Activity Details Follow Up 6 Weeks Reason:depression VITAL SIGNS Height 66 in 2017-03-24 Weight 191.4 lbs 2017-03-24 Temperature 98.2 degrees Fahrenheit 2017-03-24 Heart Rate 84 bpm 2017-03-24 Respiratory Rate 20 2017-03-24 BMI 30.89 kg/m2 2017-03-24 Blood pressure systolic 138 mmHg 2017-03-24 Blood pressure diastolic 80 mmHg 2017-03-24 MEDICATIONS Medication Instructions Dosage Frequency Start Date End Date Duration Status TENS Unit device Use as directed Mar, Active levothyroxine 25 mcg by oral route Once a day 1.5 tablet 24h Active Phenergan 25 MG oral 3 times a day 1 tablet 8h May, Active Baclofen 10 mg Orally Three times a day 1 tablet with food or milk 8h Active Paxil 40 mg Orally Once a day 2 tablet in the morning 24h Active Lidoderm 5 %(700 mg/patch) Externally Once a day 1 patch ea left and right upper back x 12 hours then remove patches for 12 hours 24h Active Gabapentin 600 MG Orally 3 times a day 1.5 am midday 2 tab hx 8h Active Omeprazole 20 mg Orally Once a day 1 capsules 24h Aug, Active Clonazepam 0.5 MG Orally Twice a day prn .5-1 tablet Mar, Active Voltaren 1 % Transdermal 4 times a day as directed 6h Mar, Active Hydrocodone-Acetaminophen 5-325 MG Orally 3 times a day 1-2 tablet as needed 8h February, Active RESULTS No Results PROCEDURES No Known [...]
--- OUTSIDE RECORDS SUMMARY | 2019-04-19 10:35 | XMS REPORT ---
Author Author HILDA WOLF [facility], [place] eClinicalWorks Address Unknown Phone Unavailable Care Team Providers Care Law Clerk Name Role Phone HILDA WOLF CP Unavailable Allergies, Adverse Reactions, Alerts Substance Reaction Event Type Lamictal hives Drug Allergy Latex hives Non Drug Allergy Clindamycin Hcl 300 Mg Capsule hives Non Drug Allergy Problems Problem Type Condition ICD-9 Code Onset Dates Condition Status Problem Chest pain, unspecified 786.50 Active Problem Displacement of intervertebral disc, site unspecified, without myelopathy 722.2 Active Problem Cervicalgia 723.1 Active Problem Lumbar sprain and strain 847.2 Active Problem Unspecified viral exanthem 057.9 Active Problem Unspecified infective otitis externa 380.10 Active Problem Rash and other nonspecific skin eruption 782.1 Active Problem Allergy, unspecified not elsewhere classified 995.3 Active Problem Generalized hyperhidrosis 780.8 Active Problem Tension headache 307.81 Active Assessment Displacement of intervertebral disc, site unspecified, without myelopathy 722.2 Active Problem Unspecified adverse effect of other drug, medicinal and biological substance 995.29 Active Assessment Cervicalgia 723.1 Active Problem Diarrhea 787.91 Active Problem Unspecified temporomandibular joint disorders 524.60 Active Problem Unspecified urticaria 708.9 Active Problem Unspecified peripheral vertigo 386.10 Active Problem Flatulence, eructation, and gas pain 787.3 Active Problem Pulpitis 522.0 Active Medications Medication Code System Code Instructions Start Date End Date Status Dosage Lidoderm [facility] [place] [address]-22 5 %(700 mg/patch) 1 patch ea left and right upper back x 12 hours then remove patches for 12 hours Gabapentin [facility] [place] [address]-41 800 MG Orally 3 times a day 1 capsule Hydrocodone-Acetaminophen [facility] [place] [address]-25 5-325 MG Orally 3 times a day Jun 05, 2015 1 -2 tablet as needed Ibuprofen [facility] [place] [address]-77 800 MG Three times a day take 1 tablet Procedures Procedure Coding System Code Date Office Visit, Est Pt., Level 3 CPT-4 60832 Jun 05, 2015 Vital Signs Date/Time: Jun 05, 2015 Temperature 97 F Weight 202 lbs Height 66 in BMI 32.60 Index Blood Pressure Diastolic 70 mmHg Blood Pressure Systolic 122 mmHg Cardiac Monitoring Heart Rate 72 bpm Results No Known Results Summary Purpose eClinicalWorks Submission
--- OUTSIDE RECORDS SUMMARY | 2019-04-19 10:35 | XMS REPORT ---
[facility] Address [address] [place] [address] Care Team Providers Care Environmental Health Safety Manager Name Role Phone HILDA WOLF Unavailable PROBLEMS Type Condition ICD9-CM Code [id number] Code Onset Dates Condition Status SNOMED Code Problem Lumbar sprain and strain 847.2 Active 881914781 Problem Herniated nucleus pulposus M51.9 Active 07468177 Problem OCD (obsessive compulsive disorder) F42 Active 527918701 Problem Unspecified peripheral vertigo 386.10 Active 47692736 Problem Allergy, unspecified not elsewhere classified 995.3 Active 964821607 Problem Tension headache 307.81 Active 731374628 Problem Generalized hyperhidrosis 780.8 Active 920620992 Problem Anxiety F41.9 Active 59607009 Problem Acquired hypothyroidism E03.9 Active 815690913 Problem Moderate episode of recurrent major depressive disorder F33.1 Active 622356014 Problem Cervicalgia M54.2 Active 02050149 Problem Polyneuropathy G62.9 Active 86345798 Problem Plantar fasciitis M72.2 Active 378979316 ALLERGIES Substance Reaction Event Type Date Status Nortriptyline HCl headache, night fu Drug Allergy Sep, Active Lamictal hives Drug Allergy Sep, Active Clindamycin HCl hives Drug Allergy Sep, Active Latex hives Non Drug Allergy Sep, Active SOCIAL HISTORY No smoking Hx information available PLAN OF CARE Activity Details Follow Up 4 Weeks Reason:neck pain VITAL SIGNS Height 66 in 2016-09-07 Weight 207.4 lbs 2016-09-07 Temperature 98.4 degrees Fahrenheit 2016-09-07 Heart Rate 72 bpm 2016-09-07 Respiratory Rate 16 2016-09-07 BMI 33.47 kg/m2 2016-09-07 Blood pressure systolic 110 mmHg 2016-09-07 Blood pressure diastolic 80 mmHg 2016-09-07 MEDICATIONS Medication Instructions Dosage Frequency Start Date End Date Duration Status Paxil 40 MG 1 tablet in the morning Active Hydrocodone-Acetaminophen 5-325 MG Orally 3 times a day must last 1 mon 1 - 2 tablet as needed Jun, Active Ibuprofen 800 MG Orally Three times a day take 1 tablet 8h Active Depakote 125 MG Orally Twice a day 1 tab am 2 tab hs 1-2 tab Active levothyroxine 25 mcg by oral route Once a day 1 tablet 24h Active Lidoderm 5 %(700 mg/patch) Externally Once a day 1 patch ea left and right upper back x 12 hours then remove patches for 12 hours 24h Active Voltaren 1 % Transdermal 4 times a day as directed 6h Mar, Active HydrOXYzine HCl 50 MG take 1 tablet by Oral route 1 time per day PRN itching Active Phenergan 25 MG oral 3 times a day 1 tablet 8h May, Active Omeprazole 20 mg Orally Once a day 1 capsules 24h Aug, Active Cyclobenzaprine HCl 10 mg Orally Three times a day prn 1 tablet Mar, Active Gabapentin 600 MG Orally 3 times a day 1.5 am midday 2 tab hx 8h Active TENS Unit device Use as directed Mar, Active RESULTS No Results PROCEDURES Procedure Date Ordered Related Diagnosis Body Site Office Visit, Est Pt., Level 3 Sep 07, 2016 IMMUNIZATIONS No Known Immunizations
--- OUTSIDE RECORDS SUMMARY | 2019-04-19 10:35 | XMS REPORT ---
Author Author HILDA WOLF [facility] Address [address] [place] [address] Care Team Providers Care Olericulturist Name Role Phone HILDA WOLF Unavailable PROBLEMS Type Condition ICD9-CM Code CIQ34-BN Code Onset Dates Condition Status SNOMED Code Problem Herniated nucleus pulposus M51.9 Active 09233885 Problem OCD (obsessive compulsive disorder) F42 Active 241223165 Problem Anxiety F41.9 Active 57660946 Problem Acquired hypothyroidism E03.9 Active 863013783 Problem Moderate episode of recurrent major depressive disorder F33.1 Active 368682421 Problem Cervicalgia M54.2 Active 66617963 Problem Polyneuropathy G62.9 Active 77054859 Problem Plantar fasciitis M72.2 Active 369385701 ALLERGIES No Information ENCOUNTERS Encounter Location Date Diagnosis [place] [id number] [place] [address] [id number] Jan, Herniated nucleus pulposus M51.9 ; Moderate episode of recurrent major depressive disorder F33.1 and Acquired hypothyroidism E03.[id number] [place] [address] [id number] Dec, Herniated nucleus pulposus M51.9 [place] [id number] [place] [address] [id number] Nov, Cervicalgia M54.2 and Herniated nucleus pulposus M51.9 [address] [place] [address] [id number] Oct, Herniated nucleus pulposus M51.9 and OCD (obsessive compulsive disorder) F42 [address] [place] [address] [id number] Oct, Herniated nucleus pulposus M51.9 [address] [place] [address] [id number] Aug, Acquired hypothyroidism E03.9 [facility] [id number], [place] [id number] Aug, Herniated nucleus pulposus M51.9 and Acquired hypothyroidism E03.9 [facility] [address] [address] Aug, [facility] [id number] [place] [address] [id number] Jul, Herniated nucleus pulposus M51.9 ; OCD (obsessive compulsive disorder) F42 and Pain of right upper extremity M79.601 [facility] [id number] [place] [address] [id number] Jul, Anxiety F41.9 [facility] [id number] [place] [address] [id number] Jul, [facility] [id number] [place] [address] [id number] Jun, OCD (obsessive compulsive disorder) F42 ; Herniated nucleus pulposus M51.9 and Acute cystitis with hematuria N30.01 [facility] [id number] [place] [address] [id number] Jun, Anxiety F41.9 [facility] [id number] [place] [address] [id number] Jun, [facility] [id number] [place] [address] [id number] May, Acquired hypothyroidism E03.9 [facility] [id number] [place] [address] [id number] May, Polyneuropathy G62.9 ; OCD (obsessive compulsive disorder) F42 ; Herniated nucleus pulposus M51.9 ; Screening for lipid disorders Z13.220 ; Long-term use of high- risk medication Z79.899 and Major depressive disorder, recurrent, moderate F33.1 [facility] [address] [id number] [place] [id number] May, Dental examination Z01.20 [facility] [id number], [place] [id number] May, Herniated nucleus pulposus M51.9 [facility] [address] [id number][place] [id number] May, Herniated nucleus pulposus M51.9 and Anxiety F41.9 [facility] [id number] [place] [address] [id number] Apr, Herniated nucleus pulposus M51.9 and Cervicalgia M54.2 [facility] [id number] [place] [address] [id number] Apr, Moderate episode of recurrent major depressive disorder F33.1 [facility] [id number] [place] [address] [id number] Apr, Herniated nucleus pulposus M51.9 [place] [id number] [place] [address] [id number] Apr, Herniated nucleus pulposus M51.9 [place] [facility] [id number] [place] [address] [id number] Mar, Moderate episode of recurrent major depressive disorder F33.1 [facility] [id number] [place] [address] [id number] Mar, Anxiety F41.9 [facility] [id number] [place] [address] [id number] Mar, [facility] [id number] [place] [address] [id number] Mar, Herniated nucleus pulposus M51.9 and Cervicalgia M54.2 [place] [id number] [place] [address] [id number] February, Acquired hypothyroidism E03.9 [facility] [id number] [place] [address] [id number] February, Polyneuropathy G62.9 ; Herniated nucleus pulposus M51.9 ; Cervicalgia M54.2 and Acquired hypothyroidism E03.9 [facility] [address] [id number] [place] [address] [id number] Jan, [facility] [id number] [place] [address] [id number] Jan, Cervicalgia M54.2 and Moderate episode of recurrent major depressive disorder F33.1 [facility] [address] [id number], [place] [id number] Dec, Cervicalgia M54.2 and Herniated nucleus pulposus M51.9 [facility] [id number] [place] [address] [id number] Nov, Lymph nodes enlarged R59.9 [facility] [id number] [place] [address] [id number] Oct, Cervicalgia M54.2 [facility] [address] [id number] [address] Sep, Polyneuropathy G62.9 [facility] [id number] [place] [address] [id number] Sep, Cervicalgia M54.2 and Herniated nucleus pulposus M51.9 [facility] [id number] [place] [address] [id number] Aug, Lumbar radiculopathy M54.16 and Spinal stenosis at L4-L5 level M48.06 [facility] [id number] [place] [address] [id number] Aug, Cervicalgia M54.2 and Herniated nucleus pulposus M51.9 [facility] [id number] [place] [address] [id number] Jul, [facility] [id number] [place] [address] [id number] Jun, Cervicalgia M54.2 and Herniated nucleus pulposus M51.9 [place] [id number] [place] [address] [id number] May, Plantar fasciitis M72.2 [facility] [id number] [place] [address] [id number] May, [place] [id number] [place] [address] [id number] Apr, Screening for lipid disorders Z13.220 ; Long-term use of high-risk medication Z79.899 and Major depressive disorder, recurrent, moderate F33.1 [facility] [id number] [place] [address] [id number] Apr, [facility] [id number], [place] [id number] Mar, Herniated nucleus pulposus M51.9 and Cervicalgia M54.2 [facility] [id number] [place] [address] [id number] Mar, Cervicalgia M54.2 and Herniated nucleus pulposus M51.9 [place] [id number] [place] [address] [id number] February, [facility] [id number] [place] [address] [id number] February, Cervicalgia M54.2 and Herniated nucleus pulposus M51.9 [place] [id number] [place] [address] [id number] Dec, Syncope, unspecified syncope type R55 [address] [place] [address] [id number] Dec, Cervicalgia M54.2 ; Herniated nucleus pulposus M51.9 and Moderate episode of recurrent major depressive disorder F33.1 [facility] [address] [place] [address] [id number] Dec, [place] [id number] [place] [address] [id number] Dec, Herniated nucleus pulposus M51.9 and Cervicalgia M54.2 [address] [place] [address] [id number] Nov, [place] [id number] [place] [address] [id number] Nov, Herniated nucleus pulposus M51.9 and OCD (obsessive compulsive disorder) F42 [place] [id number] [place] [address] [id number] Sep, Displacement of intervertebral disc, site unspecified, without myelopathy 722.2 ; Cervicalgia 723.1 and Hypothyroidism, unspecified type E03.9 [facility] [address] [place] [address] [id number] Sep, [place] [id number] [place] [address] [id number] Jun, Displacement of intervertebral disc, site unspecified, without myelopathy 722.2 and Cervicalgia 723.1 [facility] [id number], [place] [id number] Mar, Displacement of intervertebral disc, site unspecified, without myelopathy 722.2 and Shingles 053.9 [facility] [id number] [place] [address] [id number] February, Shingles 053.9 [facility] [place] [id number] [place] [address] [id number] February, Displacement of intervertebral disc, site unspecified, without myelopathy 722.2 ; Tension headache 307.81 and Cervicalgia 723.1 [facility] [place] [id number] [place] [address] [id number] February, [facility] [id number] [place] [address] [id number] February, [facility] [id number] [place] [address] [id number] February, [facility] [id number] [place] [address] Jan, [facility] [id number] [place] [address] Jan, [facility] [id number], [place] [id number] Jan, [facility] [id number] [place] [address] 14 Jan, 2015 [facility] [id number] [place] [address] Jan, [facility] [id number], [place] [id number] Dec, [facility] [id number] [place] [address] Dec, [facility] [id number], [place] [id number] Dec, [facility] [address]00565[address] [address] Dec, [facility] [address] [facility] [id number][place] [id number] Nov, [facility] [place] [facility] [address] [facility] [id number] [place] [address] Nov, [facility] [address] [facility] [id number], [place] [id number] Oct, [facility] [place] [facility] [address] [facility] [id number] [place] [address] Oct, [facility] [address] [id number], [place] [id number] Oct, [facility] [place] [facility] [address] [facility] [id number] [place] [address] Oct, [facility] [address] [facility] [id number], [place] [id number] Oct, [facility] [address] [facility] [id number], [place] [id number] Oct, [facility] [place] [facility] [address] [facility] [id number] [place] [address] Oct, [facility] [place] [facility] [address] [facility] [id number] [place] [address] Oct, [facility] [address] [facility] [id number], [place] [id number] Oct, [facility] [place] [facility] [address] [facility] [id number] [place] [address] Oct, [facility] [address] [facility] [id number], [place] [address] Oct, [facility] [place] [facility] [address] [facility] [id number] [place] [address] Oct, [facility] [address] [facility] [id number], [place] [id number] Sep, [facility] [place] [facility] [address] [facility] [id number] [place] [address] Sep, [facility] [address] [id number] [place] [id number] Aug, [facility] [place] [facility] [address] [facility] [id number] [place] [address] Aug, [facility] [place] [facility] [address] [facility] [id number] [place] [address] Aug, [facility] [address] [id number] [place] [id number] Aug, [facility] [address] [facility] [id number], [place] [id number] Aug, [facility] [place] [facility] [address] [facility] [id number] [place] [address] Aug, [facility] [address] [facility] [id number], [place] [id number] Jul, [facility] [place] [facility] [address] [facility] [id number] [place] [address] Jul, [facility] [address] [facility] [id number], [place] [id number] Jul, [facility] [place] [facility] [address] [facility] [id number] [place] [address] Jul, [facility] [place] [facility] [address] [facility] [id number] [place] [address] Apr, [facility] [address] [facility] [id number], [place] [id number] Apr, [facility] [place] [facility] [address] [facility] [id number] [place] [address] Apr, [facility] [address] [facility] [id number], [place] [id number] Apr, [facility] [place] [facility] [address] [facility] [id number] [place] [address] Apr, [facility] [address] [facility] [id number], [place] 5297[address] Mar, [facility] [place] [facility] [address] [facility] [id number] [place] [address] Mar, [facility] [address] [id number] [place] [id number] Mar, [facility] [place] [facility] [address] [facility] [id number] [place] [address] Mar, [facility] [address] [facility] [id number] [place] 735[address] February, [facility] [place] [facility] [address] [facility] [id number] [place] [address] February, [facility] [place] [facility] [address] [facility] [id number] [place] [address] February, [facility] [address] [facility] [id number] [place] [id number] February, [facility] [place] [facility] [address] [facility] [id number] [place] [address] February, [facility] [id number], [place] [id number] February, [facility] [place] [facility] [id number] [place] [address] February, [facility] [place] [facility] [id number] [place] [address] Jan, [facility] [place] [facility] [address] [facility] [id number] [place] [address] Jan, [facility] [place] [facility] [address] [facility] [id number] [place] [address] Jan, [facility] [address] [facility] [id number], [place] [address] Jan, [facility] [place] [facility] [address] [facility] [id number] [place] [address] Jan, [facility] [address] [facility] [id number], [place] 192[address]138 Jan, [facility] [place] [facility] [address] [facility] [id number] [place] [address] Jan, [facility] [address] [facility] [id number], [place] 714727353 Jan, [facility] [place] [facility] [address] [id number] [place] [address] Jan, [facility] [place] [facility] [address] [id number] [place] [address] Jan, [facility] [place] [facility] [address] [facility] [id number] [place] [address] Jan, [facility] [place] [facility] [address] [facility] [id number] [place] [address] Jan, [facility] [address] [id number] [place] [id number] Jan, [facility] [address] [id number] [place] 5488879[address] Jan, [facility] [place] [facility] [address] [facility] [id number] [place] [address] Jan, [facility] [address] [facility] [id number], [place] 639254366 Jan, [facility] [place] [facility] [address] [facility] [id number] [place] [address] Jan, [facility] [address] [facility] [id number] [place] [id number] Jan, [facility] [place] [facility] [address] [facility] [id number] [place] [address] Jan, [facility] [address] [facility] [id number], [place] 899563976 Dec, [facility] [place] [facility] [address] [facility] [id number] [place] [address] Dec, [facility] [address] [id number], [place] 8490795[address] Dec, [facility] [place] [facility] [address] [facility] [id number] [place] [address] Dec, [facility] [address] [facility] [id number] [place] [id number] Dec, [facility] [place] [facility] [address] [facility] [id number] [place] [address] Dec, [facility] [address] [facility] [id number] [place] 063329882 Dec, [facility] [place] [facility] [address] [facility] [id number] [place] [address] Dec, [facility] [address] [facility] [id number] [place] [id number] Nov, [facility] [place] [facility] [address] [facility] [id number] [place] [address] Nov, [facility] [address] [facility] [id number] [place] 842997195 Nov, [facility] [place] [facility] [address] [facility] [id number] [place] [address] Nov, [facility] [place] [facility] [address]00565100[place] [address] Nov, [facility] [place] [facility] [address] [id number] [address] Nov, [facility] [place] [facility] [address] [facility] [id number] [place] [address] Nov, [facility] [place] [facility] [address] [facility] [id number] [place] [address] Nov, [facility] [address] [id number], [place] 40[address]6957 Oct, [facility] [place] [facility] [address] [facility] [id number] [place] [address] Oct, [facility] [place] [facility] [address] [facility] [id number] [place] [address] Oct, [facility] [address] [facility] [id number], [place] 697807138 Oct, [facility] [place] [facility] [address] [facility] [id number] [place] [address] Oct, [facility] [address] [facility] [id number], [place] [id number] Oct, [facility] [address] [facility] [id number] [place] [address] Oct, [facility] [address] [id number] [place] 862[address] Aug, [facility] [address] [facility] [id number] [place] [address] Aug, [facility] [address] [id number] [place] [id number] Jul, [facility] [address] [facility] [id number] [place] [address] Mar, [facility] [address] [id number] [place] [id number] Mar, [facility] [address] [facility] [id number] [place] [address] Mar, [facility] [address] [id number] [place] 955[address] Jan, [facility] [address] [id number] [place] [id number] Sep, [facility] [address] [facility] [id number] [place] [address] Sep, [facility] [address] [id number] [place] [address]852318[address] May, [facility] [address] [id number] [place] [id number] Apr, [facility] [address] [id number] [place] [id number] Mar, [facility] [address] [id number] [place] [id number] Mar, [facility] [address] [id number] [place] [id number] February, [facility] [address] [id number] [place] [id number] Jan, [facility] [address] [facility] [id number] [place] [address] Mar, [facility] [address] [id number] [address] Sep, [facility] [id number] [address] Aug, [facility] [id number] [address] Aug, [facility] [id number] [place] [id number] Aug, [facility] [id number] [place] [address] Aug, [facility] [id number] [place] [id number] Aug, [facility] [id number] [address] Jul, [facility] [id number] [address] Apr, IMMUNIZATIONS No Known Immunizations SOCIAL HISTORY Never Assessed REASON FOR VISIT RX-Klonopin refill PLAN OF CARE VITAL SIGNS MEDICATIONS Medication Instructions Dosage Frequency Start Date End Date Duration Status Clonazepam 0.5 MG Orally Twice a day prn .5-1 tablet 14 Mar, 2017 Active RESULTS No Results PROCEDURES No Known [...]
--- OUTSIDE RECORDS SUMMARY | 2019-04-19 10:36 | XMS REPORT ---
Author Author HILDA WOLF [facility] Address [address] [place] [address] Care Team Providers Care Small Order Cutter Name Role Phone HILDA WOLF Unavailable PROBLEMS Type Condition ICD9-CM Code [id number] Code Onset Dates Condition Status SNOMED Code Problem Herniated nucleus pulposus M51.9 Active 61982030 Problem OCD (obsessive compulsive disorder) F42 Active 619369019 Problem Anxiety F41.9 Active 53172461 Problem Acquired hypothyroidism E03.9 Active 921634511 Problem Moderate episode of recurrent major depressive disorder F33.1 Active 466686643 Problem Cervicalgia M54.2 Active 12319582 Problem Polyneuropathy G62.9 Active 62002120 Problem Plantar fasciitis M72.2 Active 948371048 ALLERGIES Substance Reaction Event Type Date Status Nortriptyline HCl headache, night fu Drug Allergy Mar, Active Lamictal hives Drug Allergy Mar, Active Clindamycin HCl hives Drug Allergy Mar, Active Latex hives Non Drug Allergy Mar, Active ENCOUNTERS Encounter Location Date Diagnosis [id number] [place] [address] [id number] Dec, [id number] [place] [address] [id number] Dec, Herniated nucleus pulposus M51.9 [place] [id number] [place] [address] [id number] Nov, Cervicalgia M54.2 and Herniated nucleus pulposus M51.9 [place] [id number] [place] [address] [id number] Oct, Herniated nucleus pulposus M51.9 and OCD (obsessive compulsive disorder) F42 [address] [place] [address] [id number] Oct, Herniated nucleus pulposus M51.9 [place] [id number] [place] [address] [id number] Aug, Acquired hypothyroidism E03.9 [facility] [id number] [place] [address] [id number] Aug, Herniated nucleus pulposus M51.9 and Acquired hypothyroidism E03.9 [facility] [address] [address] Aug, [facility] [id number] [place] [address] [id number] Jul, Herniated nucleus pulposus M51.9 ; OCD (obsessive compulsive disorder) F42 and Pain of right upper extremity M79.601 [facility] [id number] [place] [address] [id number] Jul, Anxiety F41.9 [facility] [id number] [place] [address] [id number] Jul, [facility] [id number] [place] [address] [phone] Jun, OCD (obsessive compulsive disorder) F42 ; Herniated nucleus pulposus M51.9 and Acute cystitis with hematuria N30.01 [facility] [id number] [place] [address] [id number] Jun, Anxiety F41.9 [facility] [id number] [place] [address] [id number] Jun, [facility] [id number] [place] [address] [id number] May, Acquired hypothyroidism E03.9 [facility] [id number] [place] [address] [id number] May, Polyneuropathy G62.9 ; OCD (obsessive compulsive disorder) F42 ; Herniated nucleus pulposus M51.9 ; Screening for lipid disorders Z13.220 ; Long-term use of high- risk medication Z79.899 and Major depressive disorder, recurrent, moderate F33.1 [facility] [address] [id number] [place] [id number] May, Dental examination Z01.20 [facility] [id number][place] [id number] May, Herniated nucleus pulposus M51.9 [facility] [id number] [place] [address] [id number] May, Herniated nucleus pulposus M51.9 and Anxiety F41.9 [facility] [place] [address] [id number][place] [id number] Apr, Herniated nucleus pulposus M51.9 and Cervicalgia M54.2 [facility] [id number] [place] [address] [id number] Apr, Moderate episode of recurrent major depressive disorder F33.1 [facility] [id number] [place] [address] [id number] Apr, Herniated nucleus pulposus M51.9 [facility] [id number] [place] [address] [id number] Apr, Herniated nucleus pulposus M51.9 [place] [id number] [place] [address] [id number] Mar, Moderate episode of recurrent major depressive disorder F33.1 [place] [id number] [place] [address] [id number] Mar, Anxiety F41.9 [place] [id number] [place] [address] [id number] Mar, [place] [id number] [place] [address] [id number] Mar, Herniated nucleus pulposus M51.9 and Cervicalgia M54.2 [place] [id number] [place] [address] [id number] February, Acquired hypothyroidism E03.9 [place] [id number] [place] [address] [id number] February, Polyneuropathy G62.9 ; Herniated nucleus pulposus M51.9 ; Cervicalgia M54.2 and Acquired hypothyroidism E03.9 [facility] [id number], [place] [id number] Jan, [place] [id number] [place] [address] [id number] Jan, Cervicalgia M54.2 and Moderate episode of recurrent major depressive disorder F33.1 [facility] [id number] [place] [address] [id number] Dec, Cervicalgia M54.2 and Herniated nucleus pulposus M51.9 [facility] [place] [id number], [place] [id number] Nov, Lymph nodes enlarged R59.9 [facility] [id number] [place] [address] [id number] Oct, Cervicalgia M54.2 [facility] [address] [id number] [address] Sep, Polyneuropathy G62.9 [facility] [id number] [place] [address] [id number] Sep, Cervicalgia M54.2 and Herniated nucleus pulposus M51.9 [place] [id number] [place] [address] [id number] Aug, Lumbar radiculopathy M54.16 and Spinal stenosis at L4-L5 level M48.06 [facility] [id number] [place] [address] [id number] Aug, Cervicalgia M54.2 and Herniated nucleus pulposus M51.9 [facility] [id number] [place] [address] [id number] Jul, [place] [id number] [place] [address] [id number] Jun, Cervicalgia M54.2 and Herniated nucleus pulposus M51.9 [facility] [id number] [place] [address] [id number] May, Plantar fasciitis M72.2 [facility] [id number] [place] [address] [id number] May, [facility] [id number] [place] [address] [id number] Apr, Screening for lipid disorders Z13.220 ; Long-term use of high-risk medication Z79.899 and Major depressive disorder, recurrent, moderate F33.1 [facility] [id number], [place] [id number] Apr, [place] [id number] [place] [address] [id number] Mar, Herniated nucleus pulposus M51.9 and Cervicalgia M54.2 [facility] [id number] [place] [address] [id number] Mar, Cervicalgia M54.2 and Herniated nucleus pulposus M51.9 [place] [address] [id number] [place] [address] [id number] February, [place] [id number] [place] [address] [id number] February, Cervicalgia M54.2 and Herniated nucleus pulposus M51.9 [place] [id number] [place] [address] [id number] Dec, Syncope, unspecified syncope type R55 [place] [id number] [place] [address] [id number] Dec, Cervicalgia M54.2 ; Herniated nucleus pulposus M51.9 and Moderate episode of recurrent major depressive disorder F33.1 [place] [id number] [place] [address] [id number] Dec, [place] [id number] [place] [address] [id number] Dec, Herniated nucleus pulposus M51.9 and Cervicalgia M54.2 [place] [id number] [place] [address] [id number] Nov, [place] [id number] [place] [address] [id number] Nov, Herniated nucleus pulposus M51.9 and OCD (obsessive compulsive disorder) F42 [place] [id number] [place] [address] [id number] Sep, Displacement of intervertebral disc, site unspecified, without myelopathy 722.2 ; Cervicalgia 723.1 and Hypothyroidism, unspecified type E03.9 [place] [id number] [place] [address] [id number] Sep, [facility] [place] [address] [id number][place] [phone] Jun, Displacement of intervertebral disc, site unspecified, without myelopathy 722.2 and Cervicalgia 723.1 [facility] [place] [id number], [place] [id number] Mar, Displacement of intervertebral disc, site unspecified, without myelopathy 722.2 and Shingles 053.9 [facility] [place] [id number], [place] [id number] February, Shingles 053.9 [facility] [place] [id number], [place] [id number] February, Displacement of intervertebral disc, site unspecified, without myelopathy 722.2 ; Tension headache 307.81 and Cervicalgia 723.1 [facility] [place] [id number], [place] [id number] February, [facility] [place] [id number], [place] [id number] February, [facility] [place] [id number], [place] [id number] February, [facility] [id number] [place] [phone] Jan, [facility] [id number] [place] [address] Jan, [facility] [place] [id number], [place] [id number] Jan, [facility] [id number] [place] [phone] 14 Jan, 2015 [facility] [place] [facility] [id number] [place] [address] Jan, [facility] [place] [id number], [place] [id number] Dec, [facility] [address] [place] [address] Dec, [facility] [place] [address] [id number] [place] [id number] Dec, [facility] [place] [facility] [address] [id number] [address] Dec, [facility] [address] [id number] [place] [id number] Nov, [facility] [place] [facility] [address] [place] [id number] [place] [address] Nov, [facility] [address] [id number], [place] [id number] Oct, [facility] [place] [facility] [address] [id number] [place] [address] Oct, [facility] [address] [facility] [id number][place] [id number] Oct, [facility] [place] [facility] [address] [id number] [place] [address] Oct, [facility] [address] [id number], [place] [id number] Oct, [facility] [address] [id number] [place] [id number] Oct, [facility] [place] [facility] [address] [id number] [place] [address] Oct, [facility] [place] [facility] [address] [id number] [place] [address] Oct, [facility] [address] [id number], [place] [id number] Oct, [facility] [place] [facility] [address] [id number] [place] [address] Oct, [facility] [address] [id number] [place] [id number] Oct, [facility] [place] [facility] [address] [id number] [place] [address] Oct, [facility] [address] [facility] [id number], [place] [id number] Sep, [facility] [place] [facility] [address] [id number] [place] [address] Sep, [facility] [address] [id number] [place] [id number] Aug, [facility] [place] [facility] [address] [id number] [place] [address] Aug, [facility] [place] [facility] [address] [id number] [place] [address] Aug, [facility] [address] [id number] [place] [id number] Aug, [facility] [address] [id number] [place] [id number] Aug, [facility] [place] [facility] [address] [id number] [place] [address] Aug, [facility] [address] [facility] [id number] [place] [id number] Jul, [facility] [place] [facility] [address] [id number] [place] [address] Jul, [facility] [address] [facility] [id number] [place] [id number] Jul, [facility] [place] [facility] [address] [id number] [place] [address] Jul, [facility] [place] [facility] [address] [id number] [place] [address] Apr, [facility] [address] [facility] [id number], [place] [id number] Apr, [facility] [place] [facility] [address] [id number] [place] [address] Apr, [facility] [address] [facility] [id number] [place] [id number] Apr, [facility] [place] [facility] [address] [id number] [place] [address] Apr, [facility] [address] [facility] [id number], [place] [id number] Mar, [facility] [place] [facility] [address] [id number] [place] [address] Mar, [facility] [address] [facility] [id number] [place] [id number] Mar, [facility] [place] [facility] [address] [id number] [place] [address] Mar, [facility] [address] [facility] [id number] [place] [address] February, [facility] [place] [facility] [address] [id number] [place] [address] February, [facility] [place] [facility] [address] [id number] [place] [address] February, [facility] [address] [facility] [id number] [place] 890[address] February, [facility] [place] [facility] [address] [address] February, [facility] [address] [id number][place] [id number] February, [facility] [place] [facility] [address] [id number] [place] [address] February, [facility] [place] [facility] [address] [id number] [place] [address] Jan, [facility] [place] [facility] [address] [id number] [place] [address] Jan, [facility] [place] [facility] [address] [id number] [place] [address] Jan, [facility] [address] [facility] [id number] [place] [address] Jan, [facility] [place] [facility] [address] [id number] [place] [address] Jan, [facility] [address] [facility] [id number] [place] [id number] Jan, [facility] [place] [facility] [address] [id number] [place] [address] Jan, [facility] [address] [id number] [place] [id number] Jan, [facility] [place] [facility] [address] [id number] [place] [address] Jan, [facility] [place] [facility] [address] [id number] [place] [address] Jan, [facility] [place] [facility] [address] [id number] [place] [address] Jan, [facility] [place] [facility] [address] [id number] [place] [address] Jan, [facility] [address] [id number] [place] [address] Jan, [facility] [address] [id number] [place] [id number] Jan, [facility] [place] [facility] [address] [id number] [place] [address] Jan, [facility] [address] [id number] [place] [address]74[address] Jan, [facility] [place] [facility] [address] [id number] [place] [address] Jan, [facility] [address] [id number] [place] 31335[address] Jan, [facility] [place] [facility] [address] [id number] [place] [address] Jan, [facility] [address] [id number] [place] 36[address] Dec, [facility] [place] [facility] [address] [id number] [place] [address] Dec, [facility] [address] [id number] [place] 18[address] Dec, [facility] [place] [facility] [address] [id number] [place] [address] Dec, [facility] [address] [id number] [place] 530[address]196 Dec, [facility] [place] [facility] [address] [id number] [place] [address] Dec, [facility] [address] [facility] [id number], [place] 325697021 Dec, [facility] [place] [facility] [address] [id number] [place] [address] Dec, [facility] [address] [facility] [id number], [place] 0[address]261 Nov, [facility] [place] [facility] [address] [id number] [place] [address] Nov, [facility] [address] [facility] [id number], [place] 940972934 Nov, [facility] [place] [facility] [address]00565100[place] [address] Nov, [facility] [place] [facility] [address]65100[place] [address] Nov, [facility] [place] [facility] [address] [id number] [address] Nov, [facility] [place] [facility] [address]00565100[place] [address] Nov, [facility] [place] [facility] [address]00565100[place] [address] Nov, [facility] [address] [facility] [id number], [place] [address]18059004 Oct, [facility] [place] [facility] [address] [id number] [place] [address] Oct, [facility] [place] [facility] [address] [id number] [place] [address] Oct, [facility] [address] [facility] [id number], [place] 263544889 Oct, [facility] [place] [facility] [id number] [place] [address] Oct, [facility] [address] [id number] [place] [id number] Oct, [facility] [address] [id number] [place] [address] Oct, [facility] [address] [id number] [place] [address]79[address] Aug, [facility] [address] [id number] [place] [address] Aug, [facility] [address] [id number], [place] 03[address] Jul, [facility] [address] [id number] [place] [address] Mar, [facility] [address] [id number], [place] [address] Mar, [facility] [address]65100[place] [address] Mar, [facility] [address] [id number], [place] [address] Jan, [facility] [address] [id number] [place] 174[address] Sep, [facility] [address] [id number] [place] [address] Sep, [facility] [address] [id number], [place] 922820107 May, [facility] [address] [id number] [place] [address] Apr, [facility] [address] [id number] [place] 8352296[address] Mar, [facility] [address] [id number] [place] [id number] Mar, [facility] [address] [id number] [place] [id number] February, [facility] [address] [id number] [place] [id number] Jan, [facility] [address] [id number] [address] Mar, [facility] [id number] [address] Sep, [facility] [id number] [address] Aug, [facility] [id number] [address] Aug, [facility] [id number] [address] Aug, [facility] [id number] [address] Aug, [facility] [id number] [address] Aug, [facility] [id number] [address] Jul, [facility] [address] [id number] [address] Apr, IMMUNIZATIONS No Known Immunizations SOCIAL HISTORY Never Assessed REASON FOR VISIT anxiety/stress due to family Sadia JACOBS PLAN OF CARE Activity Details Follow Up 2 Weeks Reason: VITAL SIGNS Height 66 in 2017-03-17 Weight 190.6 lbs 2017-03-17 Temperature 99.2 degrees Fahrenheit 2017-03-17 Heart Rate 88 bpm 2017-03-17 Respiratory Rate 18 2017-03-17 BMI 30.76 kg/m2 2017-03-17 Blood pressure systolic 122 mmHg 2017-03-17 Blood pressure diastolic 70 mmHg 2017-03-17 MEDICATIONS Medication Instructions Dosage Frequency Start Date End Date Duration Status Gabapentin 600 MG Orally 3 times a day 1.5 am midday 2 tab hx 8h Active TENS Unit device Use as directed Mar, Active Hydrocodone-Acetaminophen 5-325 MG Orally 3 times a day 1-2 tablet as needed 8h February, Active Clonazepam 0.5 MG Orally Twice a day prn .5-1 tablet Mar, Active Omeprazole 20 mg Orally Once a day 1 capsules 24h Aug, Active Lidoderm 5 %(700 mg/patch) Externally Once a day 1 patch ea left and right upper back x 12 hours then remove patches for 12 hours 24h Active Phenergan 25 MG oral 3 times a day 1 tablet 8h May, Active levothyroxine 25 mcg by oral route Once a day 1.5 tablet 24h Active Paxil 40 mg Orally Once a day 1 tablet in the morning 24h Active Voltaren 1 % Transdermal 4 times a day as directed 6h Mar, Active Baclofen 10 mg Orally Three times a day 1 tablet with food or milk 8h Active RESULTS No Results PROCEDURES No Known [...]
--- OUTSIDE RECORDS SUMMARY | 2019-04-19 10:36 | XMS REPORT ---
Author Author HILDA WOLF Organization [employer] Address Unknown Phone Unavailable Care Team Providers Care Field Operations Technician Name Role Phone HILDA WOLF CP Unavailable Allergies No Known Allergies Problems Problem Type Condition Code Onset Dates Condition Status Problem Unspecified peripheral vertigo 386.10 Active Problem Tension headache 307.81 Active Problem Allergy, unspecified not elsewhere classified 995.3 Active Problem Moderate episode of recurrent major depressive disorder F33.1 Active Problem Cervicalgia M54.2 Active Problem Plantar fasciitis M72.2 Active Problem Lumbar sprain and strain 847.2 Active Problem Generalized hyperhidrosis 780.8 Active Problem Herniated nucleus pulposus M51.9 Active Problem OCD (obsessive compulsive disorder) F42 Active Medications Medication Code System Code Instructions Start Date End Date Status Dosage levothyroxine NDC 0 25 mcg by oral route Once a day 1 tablet Ibuprofen NDC [address]-83 800 MG Orally Three times a day take 1 tablet Results No Known Results Summary Purpose [employer] Submission
--- OUTSIDE RECORDS SUMMARY | 2019-04-19 10:36 | XMS REPORT ---
Author Author HILDA WOLF Organization [employer] Address Unknown Phone Unavailable Care Team Providers Care Manufacturing Engineering Technologist Name Role Phone HILDA WOLF CP Unavailable Allergies No Known Allergies Problems Problem Type Condition Code Onset Dates Condition Status Problem Chest [...] Active Problem Tension headache 307.81 Active Problem Unspecified adverse effect of other drug, medicinal and biological substance 995.29 Active Problem Diarrhea 787.91 Active Problem Unspecified temporomandibular joint disorders 524.60 Active Problem Unspecified urticaria 708.9 Active Problem Unspecified peripheral vertigo 386.10 Active Problem Flatulence, eructation, and gas pain 787.3 Active Problem Pulpitis 522.0 Active Medications Medication Code System Code Instructions Start Date End Date Status Dosage Tamiflu [facility] [address]-69 75 MG Orally Twice a day Sep 05, 2015 1 capsule Results No Known Results Summary Purpose [employer] Submission
--- OUTSIDE RECORDS SUMMARY | 2019-04-19 10:36 | XMS REPORT ---
Author Author HILDA WOLF [facility] [employer] Address Unknown Phone Unavailable Care Team Providers Care Electrical Laboratory Technician Name Role Phone HILDA WOLF CP Unavailable Allergies, Adverse Reactions, Alerts Substance Reaction Event Type Nortriptyline HCl headache, night fu Drug Allergy Lamictal hives Drug Allergy Clindamycin HCl hives Drug Allergy Latex hives Non Drug Allergy Problems Problem Type Condition Code Onset Dates Condition Status Problem Unspecified peripheral vertigo 386.10 Active Problem Tension headache 307.81 Active Problem Allergy, unspecified not elsewhere classified 995.3 Active Assessment Herniated nucleus pulposus M51.9 Active Assessment Cervicalgia M54.2 Active Problem Moderate episode of recurrent major depressive disorder F33.1 Active Problem Cervicalgia M54.2 Active Problem Plantar fasciitis M72.2 Active Problem Lumbar sprain and strain 847.2 Active Problem Generalized hyperhidrosis 780.8 Active Problem Herniated nucleus pulposus M51.9 Active Problem OCD (obsessive compulsive disorder) F42 Active Medications Medication Code System Code Instructions Start Date End Date Status Dosage levothyroxine ND 0 25 mcg by oral route Once a day 1 tablet Voltaren [facility] [place] [address]-23 1 % Transdermal 4 times a day March 31, 2016 as directed Depakote [facility] [place] [address]-50 125 MG Orally Twice a day 1 tab am 2 tab hs 1-2 tab Hydrocodone-Acetaminophen [facility] [place] [address]-73 5-325 MG Orally 3 times a day must last 1 wedJun 05, 2015 1 -2 tablet as needed Lidoderm [facility] [place] [address]-37 5 %(700 mg/patch) Externally Once a day 1 patch ea left and right upper back x 12 hours then remove patches for 12 hours TENS Unit ND 0 device March 31, 2016 Use as directed Phenergan [facility] [place] [address]-95 25 MG oral 3 times a day May 07, 2016 1 tablet Omeprazole [facility] [place] [address]-91 20 mg Orally Once a day Aug 04, 2016 1 capsules Cyclobenzaprine HCl [facility] [place] [address]-01 10 mg Orally Three times a day prn March 11, 2016 1 tablet HydrOXYzine HCl [facility] [place] [address]-44 50 MG Orally take 1 tablet by Oral route 1 time per day PRN itching Gabapentin [facility] [place] [address]-83 800 MG Orally 3 times a day 1 capsule Ibuprofen [facility] [place] [address]-33 800 MG Orally Three times a day take 1 tablet Paxil [facility] [place] [address]-15 40 MG Orally 1 tablet in the morning Procedures Procedure Coding System Code Date Office Visit, Est Pt., Level 3 CPT-4 67773 Aug 04, 2016 Vital Signs Date/Time: Aug 04, 2016 Cardiac Monitoring Heart Rate 86 bpm Weight 204.2 lbs Height 66 in BMI 32.96 Index Blood Pressure Diastolic 72 mmHg Blood Pressure Systolic 118 mmHg Results No Known Results Summary Purpose [employer] Submission
--- OUTSIDE RECORDS SUMMARY | 2019-04-19 10:36 | XMS REPORT ---
Author Author HILDA WOLF Organization [employer] Address Unknown Phone Unavailable Care Team Providers Care Director Corporate Security Name Role Phone HILDA WOLF CP Unavailable Allergies No Known Allergies Problems Problem Type Condition Code Onset Dates Condition Status Problem Unspecified peripheral vertigo 386.10 Active Problem Tension headache 307.81 Active Problem Allergy, unspecified not elsewhere classified 995.3 Active Assessment Spinal stenosis at L4-L5 level M48.06 Active Assessment Lumbar radiculopathy M54.16 Active Problem Moderate episode of recurrent major depressive disorder F33.1 Active Problem Cervicalgia M54.2 Active Problem Plantar fasciitis M72.2 Active Problem Lumbar sprain and strain 847.2 Active Problem Generalized hyperhidrosis 780.8 Active Problem Herniated nucleus pulposus M51.9 Active Problem OCD (obsessive compulsive disorder) F42 Active Medications No Known Medications Results No Known Results Summary Purpose [employer]Works Submission
--- OUTSIDE RECORDS SUMMARY | 2019-04-19 10:37 | XMS REPORT ---
Author Author HILDA WOLF [facility] eClinicalWorks Address Unknown Phone Unavailable Care Team Providers Care Personal Attendant Name Role Phone HILDA WOLF CP Unavailable Allergies, Adverse Reactions, Alerts Substance Reaction Event Type Lamictal hives Drug Allergy Latex hives Non Drug Allergy Clindamycin Hcl 300 Mg Capsule hives Non Drug Allergy Problems Problem Type Condition Code Onset Dates Condition Status Assessment Cervicalgia 723.1 Active Problem Unspecified temporomandibular joint disorders 524.60 Active Assessment Displacement of intervertebral disc, site unspecified, without myelopathy 722.2 Active Assessment Hypothyroidism, unspecified type E03.9 Active Problem Generalized hyperhidrosis 780.8 Active Problem Tension headache 307.81 Active Problem Lumbar sprain and strain 847.2 Active Problem Cervicalgia 723.1 Active Problem Unspecified peripheral vertigo 386.10 Active Problem Allergy, unspecified not elsewhere classified 995.3 Active Problem Displacement of intervertebral disc, site unspecified, without myelopathy 722.2 Active Medications Medication Code System Code Instructions Start Date End Date Status Dosage levothyroxine NDC 0 25 mcg 1 tablet by Oral route 1 time per day Depakote [facility] [address]-00 125 MG Orally Twice a day 1 tab am 2 tab hs 1-2 tab Ibuprofen [facility] [address]-74 800 MG Three times a day take 1 tablet Lidoderm [facility] [address]-57 5 %(700 mg/patch) 1 patch ea left and right upper back x 12 hours then remove patches for 12 hours Paxil [facility] [address]-08 20 mg 1 tablet by Oral route 1 time per day Gabapentin [facility] [address]-54 800 MG Orally 3 times a day 1 capsule tramadol ND 0 50 mg 3 times a day, PRN take 1 tablet Hydrocodone-Acetaminophen [facility] [address]-21 5-325 MG Orally 3 times a day Jun 05, 2015 1 -2 tablet as needed Parafon Forte DSC [facility] [address]-72 500 MG Orally 2 times a day 1 tablet Methocarbamol [facility] [address]-23 750 MG Orally 2 times a day 1 tablet HydrOXYzine HCl [facility] [address]-34 50 MG Orally take 1 tablet by Oral route 1 time per day PRN itching Procedures Procedure Coding System Code Date Office Visit, Est Pt., Level 3 CPT-4 61257 Sep 16, 2015 Vital Signs Date/Time: Sep 16, 2015 Temperature 97.1 F Weight 199 lbs Height 66 in BMI 32.12 Index Blood Pressure Diastolic 70 mmHg Blood Pressure Systolic 124 mmHg Cardiac Monitoring Heart Rate 70 bpm Results No Known Results Summary Purpose [employer]ClinicalWorks Submission
--- OUTSIDE RECORDS SUMMARY | 2019-04-19 10:37 | XMS REPORT ---
Author Author HILDA WOLF [facility] Address [address] [place] [address] Care Team Providers Care Automatic Lathe Operator Name Role Phone HILDA WOLF Unavailable PROBLEMS Type Condition ICD9-CM Code [id number] Code Onset Dates Condition Status SNOMED Code Problem Herniated nucleus pulposus M51.9 Active 46104161 Problem OCD (obsessive compulsive disorder) F42 Active 680714234 Problem Anxiety F41.9 Active 59892250 Problem Acquired hypothyroidism E03.9 Active 701684615 Problem Moderate episode of recurrent major depressive disorder F33.1 Active 348865275 Problem Cervicalgia M54.2 Active 24854867 Problem Polyneuropathy G62.9 Active 99278855 Problem Plantar fasciitis M72.2 Active 278212020 ALLERGIES No Information ENCOUNTERS Encounter Location Date Diagnosis [place] [id number] [place] [address] [id number] Jan, Herniated nucleus pulposus M51.9 ; Moderate episode of recurrent major depressive disorder F33.1 and Acquired hypothyroidism E03.[address] [place] [address] [id number] Dec, Herniated nucleus pulposus M51.9 [place] [id number] [place] [address] [id number] Nov, Cervicalgia M54.2 and Herniated nucleus pulposus M51.9 [address] [place] [address] [id number] Oct, Herniated nucleus pulposus M51.9 and OCD (obsessive compulsive disorder) F42 [address] [place] [address] [id number] Oct, Herniated nucleus pulposus M51.9 [address] [place] [address] [id number] Aug, Acquired hypothyroidism E03.9 [facility] [id number] [place] [id number] Aug, Herniated nucleus pulposus M51.9 and Acquired hypothyroidism E03.9 [facility] [address]005[address], [place] [address] Aug, [facility] [id number] [place] [address] [id number] Jul, Herniated nucleus pulposus M51.9 ; OCD (obsessive compulsive disorder) F42 and Pain of right upper extremity M79.601 [facility] [id number] [place] [address] [id number] Jul, Anxiety F41.9 [facility] [id number] [place] [address] [id number] Jul, [facility] [id number] [place] [address] [id number] Jun, OCD (obsessive compulsive disorder) F42 ; Herniated nucleus pulposus M51.9 and Acute cystitis with hematuria N30.01 [facility] [id number] [place] [address] [id number] Jun, Anxiety F41.9 [facility] [id number] [place] [address] [id number] Jun, [facility] [id number] [place] [address] [id number] May, Acquired hypothyroidism E03.9 [facility] [id number] [place] [address] [id number] May, Polyneuropathy G62.9 ; OCD (obsessive compulsive disorder) F42 ; Herniated nucleus pulposus M51.9 ; Screening for lipid disorders Z13.220 ; Long-term use of high- risk medication Z79.899 and Major depressive disorder, recurrent, moderate F33.1 [facility] [address] [id number] [phone] May, Dental examination Z01.20 [facility] [id number] [place] [id number] May, Herniated nucleus pulposus M51.9 [facility] [address] [id number] [place] [id number] May, Herniated nucleus pulposus M51.9 and Anxiety F41.9 [facility] [id number] [place] [address] [id number] Apr, Herniated nucleus pulposus M51.9 and Cervicalgia M54.2 [facility] [id number] [place] [address] [id number] Apr, Moderate episode of recurrent major depressive disorder F33.1 [facility] [id number] [place] [address] [id number] Apr, Herniated nucleus pulposus M51.9 [place] [id number] [place] [address] [id number] Apr, Herniated nucleus pulposus M51.9 [place] [id number] [place] [address] [id number] Mar, Moderate episode of recurrent major depressive disorder F33.1 [facility] [id number] [place] [address] [id number] Mar, Anxiety F41.9 [facility] [address] [id number] [place] [address] [id number] Mar, [facility] [id number] [place] [address] [id number] Mar, Herniated nucleus pulposus M51.9 and Cervicalgia M54.2 [place] [id number] [place] [address] [id number] February, Acquired hypothyroidism E03.9 [facility] [id number] [place] [address] [id number] February, Polyneuropathy G62.9 ; Herniated nucleus pulposus M51.9 ; Cervicalgia M54.2 and Acquired hypothyroidism E03.9 [facility] [id number] [place] [address] [id number] Jan, [facility] [id number] [place] [address] [id number] Jan, Cervicalgia M54.2 and Moderate episode of recurrent major depressive disorder F33.1 [facility] [address] [id number] [place] [id number] Dec, Cervicalgia M54.2 and Herniated nucleus pulposus M51.9 [facility] [id number] [place] [address] [id number] Nov, Lymph nodes enlarged R59.9 [facility] [id number] [place] [address] [id number] Oct, Cervicalgia M54.2 [facility] [address] [id number] [address] Sep, Polyneuropathy G62.9 [facility] [id number] [place] [address] [id number] Sep, Cervicalgia M54.2 and Herniated nucleus pulposus M51.9 [facility] [id number] [place] [address] [id number] Aug, Lumbar radiculopathy M54.16 and Spinal stenosis at L4-L5 level M48.06 [facility] [id number] [place] [address] [id number] Aug, Cervicalgia M54.2 and Herniated nucleus pulposus M51.9 [facility] [id number] [place] [address] [id number] Jul, [facility] [id number] [place] [address] [id number] Jun, Cervicalgia M54.2 and Herniated nucleus pulposus M51.9 [place] [id number] [place] [address] [id number] May, Plantar fasciitis M72.2 [facility] [id number] [place] [address] [id number] May, [place] [id number] [place] [address] [id number] Apr, Screening for lipid disorders Z13.220 ; Long-term use of high-risk medication Z79.899 and Major depressive disorder, recurrent, moderate F33.1 [facility] [id number] [place] [address] [id number] Apr, [facility] [id number] [place] [id number] Mar, Herniated nucleus pulposus M51.9 and Cervicalgia M54.2 [facility] [id number] [place] [address] [id number] Mar, Cervicalgia M54.2 and Herniated nucleus pulposus M51.9 [place] [id number] [place] [address] [id number] February, [facility] [id number] [place] [address] [id number] February, Cervicalgia M54.2 and Herniated nucleus pulposus M51.9 [place] [id number] [place] [address] [id number] Dec, Syncope, unspecified syncope type R55 [address] [place] [address] [id number] Dec, Cervicalgia M54.2 ; Herniated nucleus pulposus M51.9 and Moderate episode of recurrent major depressive disorder F33.1 [facility] [address] [place] [address] [id number] Dec, [place] [id number] [place] [address] [id number] Dec, Herniated nucleus pulposus M51.9 and Cervicalgia M54.2 [address] [place] [address] [id number] Nov, [place] [id number] [place] [address] [id number] Nov, Herniated nucleus pulposus M51.9 and OCD (obsessive compulsive disorder) F42 [place] [id number] [place] [address] [id number] Sep, Displacement of intervertebral disc, site unspecified, without myelopathy 722.2 ; Cervicalgia 723.1 and Hypothyroidism, unspecified type E03.9 [facility] [address] [place] [address] [id number] Sep, [place] [id number] [place] [address] [id number] Jun, Displacement of intervertebral disc, site unspecified, without myelopathy 722.2 and Cervicalgia 723.1 [facility] [id number] [place] [id number] Mar, Displacement of intervertebral disc, site unspecified, without myelopathy 722.2 and Shingles 053.9 [facility] [id number] [place] [address] [id number] February, Shingles 053.9 [facility] [id number] [place] [address] [id number] February, Displacement of intervertebral disc, site unspecified, without myelopathy 722.2 ; Tension headache 307.81 and Cervicalgia 723.1 [facility] [id number] [place] [address] [id number] February, [facility] [id number] [place] [address] [id number] February, [facility] [id number] [place] [address] [id number] February, [facility] [id number] [place] [address] Jan, [facility] [id number] [place] [address] Jan, [facility] [id number] [place] [id number] Jan, [facility] [id number] [place] [address] 14 Jan, 2015 [facility] [id number] [place] [address] Jan, [facility] [id number] [place] [id number] Dec, [facility] [id number] [place] [address] Dec, [facility] [id number] [place] [id number] Dec, [facility] [address]65[address], [place] [address] Dec, [facility] [address] [facility] [id number] [place] [id number] Nov, [facility] [place] [facility] [address] [facility] [id number], [place] [address] Nov, [facility] [address] [facility] [id number] [place] [id number] Oct, [facility] [place] [facility] [address] [facility] [id number], [place] [address] Oct, [facility] [address] [id number] [place] [id number] Oct, [facility] [place] [facility] [address] [facility] [id number], [place] [address] Oct, [facility] [address] [facility] [id number] [place] [id number] Oct, [facility] [address] [facility] [id number] [place] [id number] Oct, [facility] [place] [facility] [address] [facility] [id number], [place] [address] Oct, [facility] [place] [facility] [address] [facility] [id number], [place] [address] Oct, [facility] [address] [facility] [id number] [place] [id number] Oct, [facility] [place] [facility] [address] [facility] [id number], [place] [address] Oct, [facility] [address] [facility] [id number] [place] [id number] Oct, [facility] [place] [facility] [address] [facility] [id number], [place] [address] Oct, [facility] [address] [facility] [id number] [place] [id number] Sep, [facility] [place] [facility] [address] [facility] [id number], [place] [address] Sep, [facility] [address] [id number] [place] [id number] Aug, [facility] [place] [facility] [address] [facility] [id number], [place] [address] Aug, [facility] [place] [facility] [address] [facility] [id number] [place] [address] Aug, [facility] [address] [id number] [place] [id number] Aug, [facility] [address] [facility] [id number] [place] [id number] Aug, [facility] [place] [facility] [address] [facility] [id number] [place] [address] Aug, [facility] [address] [facility] [id number] [place], [place] [id number] Jul, [facility] [place] [facility] [address] [facility] [id number], [place] [address] Jul, [facility] [address] [facility] [id number] [place] [id number] Jul, [facility] [place] [facility] [address] [facility] [id number], [place] [address] Jul, [facility] [place] [facility] [address] [facility] [id number], [place] [address] Apr, [facility] [address] [facility] [id number] [place], [place] [id number] Apr, [facility] [place] [facility] [address] [facility] [id number], [place] [address] Apr, [facility] [address] [facility] [id number] [place] [id number] Apr, [facility] [place] [facility] [address] [facility] [id number], [place] [address] Apr, [facility] [address] [facility] [id number] [place] [id number] Mar, [facility] [place] [facility] [address] [facility] [id number], [place] [address] Mar, [facility] [address] [id number] [place] [id number] Mar, [facility] [place] [facility] [address] [facility] [id number] [place] [address] Mar, [facility] [address] [facility] [id number] [place] [id number] February, [facility] [place] [facility] [address] [facility] [id number] [place] [address] February, [facility] [place] [facility] [address] [facility] [id number] [place] [address] February, [facility] [address] [facility] [id number] [place] [id number] February, [facility] [place] [facility] [address] [facility] [id number] [place] [address] February, [facility] [id number] [place] [id number] February, [facility] [place] [facility] [address] [id number] [place] [address] February, [facility] [place] [facility] [address] [id number] [place] [address] Jan, [facility] [place] [facility] [address] [facility] [id number] [place] [address] Jan, [facility] [place] [facility] [address] [facility] [id number] [place] [address] Jan, [facility] [address] [facility] [id number] [place] [address] Jan, [facility] [place] [facility] [address] [facility] [id number] [place] [address] Jan, [facility] [address] [facility] [id number] [place] [id number] Jan, [facility] [place] [facility] [address] [facility] [id number] [place] [address] Jan, [facility] [address] [facility] [id number] [place] [id number] Jan, [facility] [place] [facility] [address] [id number] [place] [address] Jan, [facility] [place] [facility] [address] [id number] [place] [address] Jan, [facility] [place] [facility] [address] [facility] [id number] [place] [address] Jan, [facility] [place] [facility] [address] [facility] [id number], [place] [address] Jan, [facility] [address] [id number] [place] [id number] Jan, [facility] [address] [id number] [place] [id number] Jan, [facility] [place] [facility] [address] [facility] [id number], [place] [address] Jan, [facility] [address] [facility] [id number] [place] [id number] Jan, [facility] [place] [facility] [address] [facility] [id number], [place] [address] Jan, [facility] [address] [facility] [id number] [place] [id number] Jan, [facility] [place] [facility] [address] [facility] [id number], [place] [address] Jan, [facility] [address] [facility] [id number] [place] [id number] Dec, [facility] [place] [facility] [address] [facility] [id number], [place] [address] Dec, [facility] [address] [id number] [place] [id number] Dec, [facility] [place] [facility] [address] [facility] [id number] [place] [address] Dec, [facility] [address] [facility] [id number] [place] [id number] Dec, [facility] [place] [facility] [address] [facility] [id number], [place] [address] Dec, [facility] [address] [facility] [id number] [place] [id number] Dec, [facility] [place] [facility] [address] [facility] [id number], [place] [address] Dec, [facility] [address] [facility] [id number] [place] [id number] Nov, [facility] [place] [facility] [address] [facility] [id number], [place] [address] Nov, [facility] [address] [facility] [id number] [place] [id number] Nov, [facility] [place] [facility] [address] [facility] [id number], [place] [address] Nov, [facility] [place] [facility] [address], [place] [address] Nov, [facility] [place] [facility] [address] [id number], [place] [address] Nov, [facility] [place] [facility] [address] [facility] [id number], [place] [address] Nov, [facility] [place] [facility] [address] [facility] [id number], [place] [address] Nov, [facility] [address] [id number] [place] 909877834 Oct, [facility] [place] [facility] [address] [facility] [id number], [place] [address] Oct, [facility] [place] [facility] [address] [facility] [id number], [place] [address] Oct, [facility] [address] [facility] [id number] [place] [id number] Oct, [facility] [place] [facility] [address] [facility] [id number], [place] [address] Oct, [facility] [address] [facility] [id number] [place] [id number] Oct, [facility] [address] [facility] [id number] [place] [address] Oct, [facility] [address] [id number] [place] [id number] Aug, [facility] [address] [facility] [id number], [place] [address] Aug, [facility] [address] [id number] [place] [id number] Jul, [facility] [address] [facility] [id number], [place] [address] Mar, [facility] [address] [id number] [place] [id number] Mar, [facility] [address] [facility] [id number], [place] [address] Mar, [facility] [address] [id number] [place] [id number] Jan, [facility] [address] [id number] [place] [id number] Sep, [facility] [address] [facility] [id number], [place] [address] Sep, [facility] [address] [id number] [place] [id number] May, [facility] [address] [id number] [place] [id number] Apr, [facility] [address] [id number] [place] [id number] Mar, [facility] [address] [id number] [place] [id number] Mar, [facility] [address] [id number] [place] [id number] February, [facility] [address] [id number] [place] [id number] Jan, [facility] [address] [facility] [id number], [place] [address] Mar, [facility] [address] [id number], [place] [address] Sep, [facility] [address]00565100[place], [place] [address] Aug, [facility] [address]00565100[place], [place] [address] Aug, [facility] [address]00565100[place], [place] [address] Aug, [facility] [address]65100[place], [place] [address] Aug, [facility] [address]00565100[place], [place] [address] Aug, [facility] [address]65100[place] [place] [address] Jul, [facility] [id number], [place] [address] Apr, IMMUNIZATIONS No Known Immunizations SOCIAL HISTORY Never Assessed REASON FOR VISIT lab result/medication PLAN OF CARE VITAL SIGNS MEDICATIONS Medication Instructions Dosage Frequency Start Date End Date Duration Status Levothyroxine Sodium 50 mcg Orally Once a day 1 tablet on an empty stomach in the morning 24h May, 0 days Active RESULTS No Results [...]
--- OUTSIDE RECORDS SUMMARY | 2019-04-19 10:37 | XMS REPORT ---
Author Author MARGAUX AGGARWAL [facility] Address Unknown Care Team Providers Care Actuary Name Role Phone MARGAUX AGGARWAL Unavailable PROBLEMS Type Condition ICD9-CM Code BOV88-VA Code Onset Dates Condition Status SNOMED Code Problem Herniated nucleus pulposus M51.9 Active 13784107 Problem OCD (obsessive compulsive disorder) F42 Active 743638496 Problem Anxiety F41.9 Active 03752512 Problem Acquired hypothyroidism E03.9 Active 479311044 Problem Moderate episode of recurrent major depressive disorder F33.1 Active 074517582 Problem Cervicalgia M54.2 Active 79414390 Problem Polyneuropathy G62.9 Active 06604348 Problem Plantar fasciitis M72.2 Active 565823789 ALLERGIES Substance Reaction Event Type Date Status Nortriptyline HCl headache, night fu Drug Allergy May, Active Lamictal hives Drug Allergy May, Active Clindamycin HCl hives Drug Allergy May, Active Latex hives Non Drug Allergy May, Active ENCOUNTERS Encounter Location Date Diagnosis [id number] [place] [address] [id number] Jan, Herniated nucleus pulposus M51.9 ; Moderate episode of recurrent major depressive disorder F33.1 and Acquired hypothyroidism E03.9 [id number] [id number] Dec, Herniated nucleus pulposus M51.9 [id number] [place] [address] [id number] Nov, Cervicalgia M54.2 and Herniated nucleus pulposus M51.9 [address] [place] [address] [id number] Oct, Herniated nucleus pulposus M51.9 and OCD (obsessive compulsive disorder) F42 [address] [place] [address] [id number] Oct, Herniated nucleus pulposus M51.9 [facility] [id number][place] [id number] Aug, Acquired hypothyroidism E03.9 [address] [place] [address] [id number] Aug, Herniated nucleus pulposus M51.9 and Acquired hypothyroidism E03.9 [facility] [address] [id number] [address] Aug, [facility] [id number] [place] [address] [id number] Jul, Herniated nucleus pulposus M51.9 ; OCD (obsessive compulsive disorder) F42 and Pain of right upper extremity M79.601 [facility] [address] [place] [address] [id number] Jul, Anxiety F41.9 [address] [place] [address] [id number] Jul, [id number] [place] [address] [id number] Jun, OCD (obsessive compulsive disorder) F42 ; Herniated nucleus pulposus M51.9 and Acute cystitis with hematuria N30.[address] [place] [address] [id number] Jun, Anxiety F41.9 [address] [place] [address] [id number] Jun, [address] [place] [address] [id number] May, Acquired hypothyroidism E03.9 [id number] [id number] May, Polyneuropathy G62.9 ; OCD (obsessive compulsive disorder) F42 ; Herniated nucleus pulposus M51.9 ; Screening for lipid disorders Z13.220 ; Long-term use of high- risk medication Z79.899 and Major depressive disorder, recurrent, moderate F33.1 [facility] [id number] [place] [id number] May, Dental examination Z01.20 [facility] [id number] [place] [address] [id number] May, Herniated nucleus pulposus M51.9 [facility] [id number] [place] [address] [id number] May, Herniated nucleus pulposus M51.9 and Anxiety F41.9 [address] [id number] [place] [address] [id number] Apr, Herniated nucleus pulposus M51.9 and Cervicalgia M54.2 [place] [id number] [place] [address] [id number] Apr, Moderate episode of recurrent major depressive disorder F33.1 [facility] [id number] [place] [address] [id number] Apr, Herniated nucleus pulposus M51.9 [id number] [place] [address] [id number] Apr, Herniated nucleus pulposus M51.9 [place] [id number] [place] [address] [id number] Mar, Moderate episode of recurrent major depressive disorder F33.1 [place] [id number] [place] [address] [id number] Mar, Anxiety F41.9 [address] [address] [id number] [place] [address] [id number] Mar, [place] [id number] [place] [address] [id number] Mar, Herniated nucleus pulposus M51.9 and Cervicalgia M54.2 [place] [id number] [place] [address] [id number] February, Acquired hypothyroidism E03.9 [id number] [place] [address] [id number] February, Polyneuropathy G62.9 ; Herniated nucleus pulposus M51.9 ; Cervicalgia M54.2 and Acquired hypothyroidism E03.9 [place] [id number] [place] [address] [id number] Jan, [facility] [id number][place] [id number] Jan, Cervicalgia M54.2 and Moderate episode of recurrent major depressive disorder F33.1 [facility] [id number] [place] [address] [id number] Dec, Cervicalgia M54.2 and Herniated nucleus pulposus M51.9 [facility] [id number] [place] [address] [id number] Nov, Lymph nodes enlarged R59.9 [facility] [id number] [place] [address] [id number] Oct, Cervicalgia M54.2 [facility] [id number] [place] [address] Sep, Polyneuropathy G62.9 [facility] [id number] [place] [address] [id number] Sep, Cervicalgia M54.2 and Herniated nucleus pulposus M51.9 [facility] [id number] [place] [address] [id number] Aug, Lumbar radiculopathy M54.16 and Spinal stenosis at L4-L5 level M48.06 [facility] [id number] [place] [address] [id number] Aug, Cervicalgia M54.2 and Herniated nucleus pulposus M51.9 [facility] [id number] [place] [address] [id number] Jul, [facility] [id number] [place] [address] [id number] Jun, Cervicalgia M54.2 and Herniated nucleus pulposus M51.9 [facility] [id number] [place] [address] [id number] May, Plantar fasciitis M72.2 [facility] [id number] [place] [address] [id number] May, [facility] [id number] [place] [address] [id number] Apr, Screening for lipid disorders Z13.220 ; Long-term use of high-risk medication Z79.899 and Major depressive disorder, recurrent, moderate F33.1 [place] [id number] [place] [address] [id number] Apr, [id number] [place] [address] [id number] Mar, Herniated nucleus pulposus M51.9 and Cervicalgia M54.2 [id number] [place] [address] [id number] Mar, Cervicalgia M54.2 and Herniated nucleus pulposus M51.9 [id number] [place] [address] [id number] February, [address] [id number] February, Cervicalgia M54.2 and Herniated nucleus pulposus M51.9 [id number] [place] [address] [id number] Dec, Syncope, unspecified syncope type R55 [id number] [place] [address] [id number] Dec, Cervicalgia M54.2 ; Herniated nucleus pulposus M51.9 and Moderate episode of recurrent major depressive disorder F33.1 [address] [place] [address] [id number] Dec, [id number] [place] [address] [id number] Dec, Herniated nucleus pulposus M51.9 and Cervicalgia M54.2 [address] [place] [address] [id number] Nov, [id number] [place] [address] [id number] Nov, Herniated nucleus pulposus M51.9 and OCD (obsessive compulsive disorder) F42 [id number] [place] [address] [id number] Sep, Displacement of intervertebral disc, site unspecified, without myelopathy 722.2 ; Cervicalgia 723.1 and Hypothyroidism, unspecified type E03.[id number], [place] [id number] Sep, [facility] [id number] [place] [address] [id number] Jun, Displacement of intervertebral disc, site unspecified, without myelopathy 722.2 and Cervicalgia 723.1 [facility] [id number] [place] [address] [id number] Mar, Displacement of intervertebral disc, site unspecified, without myelopathy 722.2 and Shingles 053.9 [facility] [id number] [place] [address] [id number] February, Shingles 053.9 [facility] [id number] [place] [address] [id number] February, Displacement of intervertebral disc, site unspecified, without myelopathy 722.2 ; Tension headache 307.81 and Cervicalgia 723.1 [facility] [id number] [place] [address] [id number] February, [facility] [id number] [place] [address] [id number] February, [facility] [id number] [place] [address] [id number] February, [facility] [id number] [place] [phone] Jan, [facility] [id number] [place] [address] Jan, [facility] [id number] [place] [address] [id number] Jan, [facility] [id number] [place] [address] 14 Jan, 2015 [facility] [id number] [place] [address] Jan, [facility] [id number], [place] [id number] Dec, [facility] [id number] [place] [address] Dec, [facility] [address] [id number] [place] [id number] Dec, [facility] [place] [facility] [address] [id number] [address] Dec, [facility] [address] [id number] [place] [id number] Nov, [facility] [place] [facility] [address] [facility] [id number] [place] [address] Nov, [facility] [address] [id number][place] [id number] Oct, [facility] [place] [facility] [address] [id number] [place] [address] Oct, [facility] [address] [id number], [place] [id number] Oct, [facility] [place] [facility] [address] [facility] [id number] [place] [address] Oct, [facility] [address] [id number] [id number] Oct, [facility] [address] [id number], [place] [id number] Oct, [facility] [place] [facility] [address] [facility] [id number] [place] [address] Oct, [facility] [place] [facility] [address] [facility] [id number] [place] [address] Oct, [facility] [address] [id number], [place] [id number] Oct, [facility] [place] [facility] [address] [id number] [place] [address] Oct, [facility] [address] [id number], [place] [id number] Oct, [facility] [place] [facility] [address] [facility] [id number] [place] [address] Oct, [facility] [address] [id number][place] [id number] Sep, [facility] [place] [facility] [address] [id number] [place] [address] Sep, [facility] [address] [id number] [place] [id number] Aug, [facility] [place] [facility] [address] [id number] [place] [address] Aug, [facility] [place] [facility] [address] [id number] [place] [address] Aug, [facility] [address] [id number] [place] [id number] Aug, [facility] [address] [id number] [place] [id number] Aug, [facility] [place] [facility] [address] [facility] [id number] [place] [address] Aug, [facility] [address] [facility] [id number] [place] [id number] Jul, [facility] [place] [facility] [address] [id number] [place] [address] Jul, [facility] [address] [facility] [id number] [place] [id number] Jul, [facility] [place] [facility] [address] [facility] [id number] [place] [address] Jul, [facility] [place] [facility] [address] [facility] [id number] [place] [address] Apr, [facility] [address] [id number][place] [id number] Apr, [facility] [place] [facility] [address] [id number] [place] [address] Apr, [facility] [address] [facility] [id number] [place] [id number] Apr, [facility] [place] [facility] [address] [facility] [id number] [place] [address] Apr, [facility] [address] [id number] [place] [id number] Mar, [facility] [place] [facility] [address] [id number] [place] [address] Mar, [facility] [address] [id number] [place] [id number] Mar, [facility] [place] [facility] [address] [facility] [id number] [place] [address] Mar, [facility] [address] [facility] [id number] [place] [id number] February, [facility] [place] [facility] [address] [id number] [place] [address] February, [facility] [place] [facility] [address] [facility] [id number] [place] [address] February, [facility] [address] [facility] [id number] [place] [id number] February, [facility] [place] [facility] [address] [facility] [id number] [place] [address] February, [facility] [address] [facility] [id number] [place] [id number] February, [facility] [place] [facility] [address] [facility] [id number] [place] [address] February, [facility] [place] [facility] [address] [facility] [id number] [place] [address] Jan, [facility] [place] [facility] [address] [facility] [id number] [place] [address] Jan, [facility] [place] [facility] [address] [facility] [id number] [place] [address] Jan, [facility] [address] [facility] [id number], [place] [id number] Jan, [facility] [place] [facility] [address] [id number] [place] [address] Jan, [facility] [address] [facility] [id number], [place] [id number] Jan, [facility] [place] [facility] [address] [facility] [id number] [place] [address] 2014 [facility] [address] [facility] [id number] [place] [id number] Jan, [facility] [place] [facility] [address] [facility] [id number] [place] [address] Jan, [facility] [place] [facility] [address] [facility] [id number] [place] [address] Jan, [facility] [place] [facility] [address] [facility] [id number] [place] [address] Jan, [facility] [place] [facility] [address] [facility] [id number] [place] [address] Jan, [facility] [address] [id number] [place] [id number] Jan, [facility] [address] [id number] [place] [id number] Jan, [facility] [place] [facility] [address] [facility] [id number] [place] [address] Jan, [facility] [address] [id number] [place] [id number] Jan, [facility] [place] [facility] [address] [facility] [id number] [place] [address] Jan, [facility] [address] [id number] [place] [id number] Jan, [facility] [place] [facility] [address] [facility] [id number] [place] [address] Jan, [facility] [address] [id number] [place] [id number] Dec, [facility] [place] [facility] [address] [facility] [id number] [place] [address] Dec, [facility] [address] [id number] [place] [id number] Dec, [facility] [place] [facility] [address] [facility] [id number] [place] [address] Dec, [facility] [address] [facility] [id number] [place] [id number] Dec, [facility] [place] [facility] [address] [facility] [id number] [place] [address] Dec, [facility] [address] [id number] [place] [id number] Dec, [facility] [place] [facility] [address] [facility] [id number] [place] [address] Dec, [facility] [address] [facility] [id number] [place] 415870313 Nov, [facility] [place] [facility] [address] [address] Nov, [facility] [address] [id number] [id number] Nov, [facility] [place] [facility] [address] [address] Nov, [facility] [place] [facility] [address] [id number] [address] Nov, [facility] [place] [facility] [address] [place] [address] Nov, [facility] [place] [facility] [address]100[place] [address] Nov, [facility] [place] [facility] [address] [id number] [address] Nov, [facility] [address] [facility] [id number][place] [id number] Oct, [facility] [place] [facility] [address] [id number] [address] Oct, [facility] [place] [facility] [address] [facility] [id number] [place] [address] Oct, [facility] [address] [facility] [id number], [place] 506946133 Oct, [facility] [place] [facility] [address] [facility] [id number] [place] [address] Oct, [facility] [address] [id number], [place] [id number] Oct, [facility] [place] [facility] [address] [facility] [id number] [place] [address] Oct, [facility] [address] [id number], [place] [id number] Aug, [facility] [place] [facility] [address] [facility] [id number] [place] [address] Aug, [facility] [address] [id number], [place] [id number] Jul, [facility] [place] [facility] [address] [facility] [id number] [place] [address] Mar, [facility] [address] [id number][place] [id number] Mar, [facility] [address] [facility] [id number] [place] [address] Mar, [facility] [address] [id number], [place] [id number] Jan, [facility] [address] [id number], [place] 056238975 Sep, [facility] [place] [facility] [address] [address] Sep, [facility] [address] [id number], [place] 050388139 May, [facility] [address] [id number], [place] 578502216 Apr, [facility] [address] [id number] [place] 6576[address] Mar, [facility] [address] [id number] [place] 2539[address] Mar, [facility] [address] [id number] [place] [id number] February, [facility] [address] [id number], [place] 397906037 Jan, [facility] [address]00565100[place] [address] Mar, [facility] [address] [address] Sep, [facility] [address]65100[place] [address] Aug, [facility] [address]65100[place] [address] Aug, [facility] [address]65100[place] [address] Aug, [facility] [address]00565100[place] [address] Aug, [facility] [id number] [address] Aug, [facility] [id number] [address] Jul, [facility] [id number] [address] Apr, IMMUNIZATIONS No Known Immunizations SOCIAL HISTORY Never Assessed REASON FOR VISIT jackie PLAN OF CARE Activity Details Follow Up prn Reason: VITAL SIGNS Height 66 in 2017-05-28 Blood pressure systolic 110 mmHg 2017-05-28 Blood pressure diastolic 70 mmHg 2017-05-28 MEDICATIONS Medication Instructions Dosage Frequency Start Date End Date Duration Status TENS Unit device Use as directed Mar, Active Hydrocodone-Acetaminophen 5-325 MG Orally 3 times a day 1-2 tablet as needed 8h February, Active Voltaren 1 % Transdermal 4 times a day as directed 6h Mar, Active Phenergan 25 MG oral 3 times a day 1 tablet 8h May, Active Paxil 40 mg Orally Once a day 2 tablet in the morning 24h Active Omeprazole 20 mg Orally Once a day 1 capsules 24h Aug, Active Lidoderm 5 %(700 mg/patch) Externally Once a day 1 patch ea left and right upper back x 12 hours then remove patches for 12 hours 24h Active Gabapentin 600 MG Orally 3 times a day 1.5 am midday 2 tab hs 8h Active Clonazepam 0.5 MG Orally Twice a day prn .5-1 tablet Mar, Active levothyroxine 25 mcg by oral route Once a day 1.5 tablet 24h Active Ibuprofen 800 MG Orally Three times a day take 1 tablet 8h Active Baclofen 10 mg Orally Three times a day 1 tablet with food or milk 8h Active RESULTS No Results PROCEDURES Procedure Date Ordered Result Body Site COMP ORAL EVALUATION - NEW/EST PT May 28, 2017 INTRAORL-PERIAPICAL 1 FILM [id number] May 28, 2017 BITEWINGS - FOUR FILMS May 28, 2017 INTRAORL-PERIAPICAL EA ADD FILM May 28, 2017 INTRAORL-PERIAPICAL EA ADD FILM May 28, 2017 INTRAORL-PERIAPICAL EA ADD FILM May 28, 2017 INTRAORL-PERIAPICAL EA ADD FILM May 28, 2017 INSTRUCTIONS MEDICATIONS ADMINISTERED No Known Medications MEDICAL [...]
--- OUTSIDE RECORDS SUMMARY | 2019-04-19 10:37 | XMS REPORT ---
Author Author HILDA WOLF Organization [employer] Address Unknown Phone Unavailable Care Team Providers [facility] Name Role Phone HILDA WOLF CP Unavailable Allergies No Known Allergies Problems Problem Type Condition Code Onset Dates Condition Status Problem Cervicalgia 723.1 Active Problem Allergy, unspecified not elsewhere classified 995.3 Active Problem Displacement of intervertebral disc, site unspecified, without myelopathy 722.2 Active Problem Unspecified temporomandibular joint disorders 524.60 Active Problem Unspecified peripheral vertigo 386.10 Active Problem Cervicalgia M54.2 Active Problem Herniated [...]
--- OUTSIDE RECORDS SUMMARY | 2019-04-19 10:37 | XMS REPORT ---
Author Author HILDA WOLF [facility] e[employer] Address Unknown Phone Unavailable Care Team Providers Care Tape Calender Name Role Phone HILDA WOLF CP Unavailable [...] Instructions Start Date End Date Status Dosage Depakote [facility] [address]-02 125 MG Orally Twice a day 1 tab am 2 tab hs 1-2 tab HydrOXYzine HCl [facility] [address]-39 50 MG Orally take 1 tablet by Oral route 1 time per day PRN itching Ibuprofen [facility] [address]-30 800 MG Three times a day take 1 tablet Phenergan [facility] [address]-55 25 MG oral 3 times a day May 07, 2016 1 tablet Paxil [facility] [address]-44 40 MG Orally 1 tablet in the morning TENS Unit ND 0 device March 31, 2016 Use as directed Cyclobenzaprine HCl [facility] [address]-37 10 mg Orally Three times a day prn March 11, 2016 1 tablet Lidoderm [facility] [address]-71 5 %(700 mg/patch) Externally Once a day 1 patch ea left and right upper back x 12 hours then remove patches for 12 hours Gabapentin [facility] [address]-11 800 MG Orally 3 times a day 1 capsule Hydrocodone-Acetaminophen [facility] [address]-09 5-325 MG Orally 3 times a day must last 1 wedJun 05, 2015 1 -2 tablet as needed levothyroxine ND 0 25 mcg 1 tablet by Oral route 1 time per day Voltaren [facility] [address]-01 1 % Transdermal 4 times a day March 31, 2016 as directed Procedures Procedure Coding System Code Date Office Visit, Est Pt., Level 3 CPT-4 22688 Jun 30, 2016 Vital Signs Date/Time: Jun 30, 2016 Cardiac Monitoring Heart Rate 91 bpm Weight 202 lbs Height 66 in BMI 32.60 Index Blood Pressure Diastolic 70 mmHg Blood Pressure Systolic 128 mmHg Results No Known Results Summary Purpose eClinicalWorks Submission
--- OUTSIDE RECORDS SUMMARY | 2019-04-19 10:38 | XMS REPORT ---
Author Author HILDA WOLF Organization [employer] Address Unknown Phone Unavailable Care Team Providers Care Homoeopath Name Role Phone HILDA WOLF CP Unavailable Allergies No Known Allergies Problems Problem Type Condition Code Onset Dates Condition Status Problem Allergy, unspecified not elsewhere classified 995.3 Active Problem Unspecified peripheral vertigo 386.10 Active Problem Cervicalgia M54.2 Active Problem Herniated nucleus pulposus M51.9 Active Problem Moderate episode of recurrent major depressive disorder F33.1 Active Problem Generalized hyperhidrosis 780.8 Active Problem Tension headache 307.81 Active Problem OCD (obsessive compulsive disorder) F42 Active Problem Lumbar sprain and strain 847.2 Active Medications Medication Code System Code Instructions Start Date End Date Status Dosage Phenergan [facility] [address]-86 25 MG oral 3 times a day May 07, 2016 1 tablet Results No Known Results Summary Purpose [employer]ClinicalWorks Submission
--- OUTSIDE RECORDS SUMMARY | 2019-04-19 10:38 | XMS REPORT ---
Author Author HILDA WLOF [facility] Address [address] [place] [address] Care Team Providers Care Clean Up Supervisor Name Role Phone HILDA WOLF Unavailable PROBLEMS Type Condition ICD9-CM Code [id number] Code Onset Dates Condition Status SNOMED Code Problem Herniated nucleus pulposus M51.9 Active 34038176 Problem OCD (obsessive compulsive disorder) F42 Active 120206251 Problem Anxiety F41.9 Active 04557873 Problem Acquired hypothyroidism E03.9 Active 085990094 Problem Moderate episode of recurrent major depressive disorder F33.1 Active 791789472 Problem Cervicalgia M54.2 Active 07032830 Problem Polyneuropathy G62.9 Active 99285499 Problem Plantar fasciitis M72.2 Active 217162931 ALLERGIES Substance Reaction Event Type Date Status Nortriptyline HCl headache, night fu Drug Allergy Oct, Active Lamictal hives Drug Allergy Oct, Active Clindamycin HCl hives Drug Allergy Oct, Active Latex hives Non Drug Allergy Oct, Active ENCOUNTERS Encounter Location Date Diagnosis [id number] [place] [address] [id number] Mar, [address] [place] [address] [id number] Mar, Herniated nucleus pulposus M51.[address] [place] [address] [id number] February, Herniated nucleus pulposus M51.9 ; Polyneuropathy G62.9 and Anxiety F41.9 [address] [id number] [place] [address] [id number] Jan, Herniated nucleus pulposus M51.9 ; Moderate episode of recurrent major depressive disorder F33.1 and Acquired hypothyroidism E03.[address] [place] [address] [id number] Dec, Herniated nucleus pulposus M51.9 [facility] [id number] [id number] Nov, Cervicalgia M54.2 and Herniated nucleus pulposus M51.9 [facility] [id number] [place] [address] [id number] Oct, Herniated nucleus pulposus M51.9 and OCD (obsessive compulsive disorder) F42 [facility] [id number] [place] [address] [phone] Oct, Herniated nucleus pulposus M51.9 [facility] [id number] [place] [address] [id number] Aug, Acquired hypothyroidism E03.9 [place] [id number] [place] [address] [id number] Aug, Herniated nucleus pulposus M51.9 and Acquired hypothyroidism E03.9 [facility] [id number] [place] [address] Aug, [facility] [id number] [place] [address] [phone] Jul, Herniated nucleus pulposus M51.9 ; OCD (obsessive compulsive disorder) F42 and Pain of right upper extremity M79.601 [facility] [id number] [place] [address] [id number] Jul, Anxiety F41.9 [address] [place] [address] [id number] Jul, [place] [id number] [place] [address] [id number] Jun, OCD (obsessive compulsive disorder) F42 ; Herniated nucleus pulposus M51.9 and Acute cystitis with hematuria N30.01 [address] [id number] [place] [address] [id number] Jun, Anxiety F41.9 [facility] [address] [place] [address] [id number] Jun, [place] [id number] [place] [address] [id number] May, Acquired hypothyroidism E03.9 [facility] [address] [id number][place] [id number] May, Polyneuropathy G62.9 ; OCD (obsessive compulsive disorder) F42 ; Herniated nucleus pulposus M51.9 ; Screening for lipid disorders Z13.220 ; Long-term use of high- risk medication Z79.899 and Major depressive disorder, recurrent, moderate F33.1 [facility] [address] [id number][place] [id number] May, Dental examination Z01.20 [facility] [address] [id number][place] [id number] May, Herniated nucleus pulposus M51.9 [facility] [id number] [place] [address] [id number] May, Herniated nucleus pulposus M51.9 and Anxiety F41.9 [facility] [id number] [place] [address] [id number] Apr, Herniated nucleus pulposus M51.9 and Cervicalgia M54.2 [facility] [id number] [place] [address] [id number] Apr, Moderate episode of recurrent major depressive disorder F33.1 [facility] [id number] [place] [address] [id number] Apr, Herniated nucleus pulposus M51.9 [facility] [id number] [place] [address] [id number] Apr, Herniated nucleus pulposus M51.9 [facility] [address] [id number] [place] [address] [id number] Mar, Moderate episode of recurrent major depressive disorder F33.1 [facility] [id number] [place] [address] [id number] Mar, Anxiety F41.9 [facility] [id number] [place] [address] [id number] Mar, [facility] [id number] [place] [address] [id number] Mar, Herniated nucleus pulposus M51.9 and Cervicalgia M54.2 [place] [id number] [place] [address] [id number] February, Acquired hypothyroidism E03.9 [place] [id number] [place] [address] [id number] February, Polyneuropathy G62.9 ; Herniated nucleus pulposus M51.9 ; Cervicalgia M54.2 and Acquired hypothyroidism E03.9 [address] [id number] [place] [address] [id number] Jan, [address] [id number] Jan, Cervicalgia M54.2 and Moderate episode of recurrent major depressive disorder F33.1 [place] [id number] [place] [address] [id number] Dec, Cervicalgia M54.2 and Herniated nucleus pulposus M51.9 [place] [id number] [place] [address] [id number] Nov, Lymph nodes enlarged R59.9 [place] [id number] [place] [address] [id number] Oct, Cervicalgia M54.2 [facility] [id number] [place] [address] Sep, Polyneuropathy G62.[address] [place] [address] [id number] Sep, Cervicalgia M54.2 and Herniated nucleus pulposus M51.9 [address] [place] [address] [id number] Aug, Lumbar radiculopathy M54.16 and Spinal stenosis at L4-L5 level M48.06 [place] [id number] [place] [address] [id number] Aug, Cervicalgia M54.2 and Herniated nucleus pulposus M51.9 [address] [place] [address] [id number] Jul, [place] [id number] [place] [address] [id number] Jun, Cervicalgia M54.2 and Herniated nucleus pulposus M51.9 [facility] [id number] [place] [address] [id number] May, Plantar fasciitis M72.2 [facility] [id number] [place] [address] [id number] May, [place] [id number] [place] [address] [id number] Apr, Screening for lipid disorders Z13.220 ; Long-term use of high-risk medication Z79.899 and Major depressive disorder, recurrent, moderate F33.1 [place] [id number] [place] [address] [id number] Apr, [place] [id number] [place] [address] [id number] Mar, Herniated nucleus pulposus M51.9 and Cervicalgia M54.2 [place] [id number] [place] [address] [id number] Mar, Cervicalgia M54.2 and Herniated nucleus pulposus M51.9 [place] [id number] [place] [address] [id number] February, [place] [id number] [place] [address] [id number] February, Cervicalgia M54.2 and Herniated nucleus pulposus M51.9 [place] [id number] [place] [address] [id number] Dec, Syncope, unspecified syncope type R55 [facility] [id number] [place] [address] [id number] Dec, Cervicalgia M54.2 ; Herniated nucleus pulposus M51.9 and Moderate episode of recurrent major depressive disorder F33.1 [place] [id number] [place] [address] [id number] Dec, [place] [id number] [place] [address] [id number] Dec, Herniated nucleus pulposus M51.9 and Cervicalgia M54.2 [place] [id number] [id number] Nov, [facility] [id number], [place] [id number] Nov, Herniated nucleus pulposus M51.9 and OCD (obsessive compulsive disorder) F42 [facility] [id number], [place] [id number] Sep, Displacement of intervertebral disc, site unspecified, without myelopathy 722.2 ; Cervicalgia 723.1 and Hypothyroidism, unspecified type E03.9 [facility] [id number], [place] [id number] Sep, [place] [id number] [place] [address] [id number] Jun, Displacement of intervertebral disc, site unspecified, without myelopathy 722.2 and Cervicalgia 723.1 [facility] [id number] [place] [address] [id number] Mar, Displacement of intervertebral disc, site unspecified, without myelopathy 722.2 and Shingles 053.9 [facility] [id number], [place] [id number] February, Shingles 053.9 [facility] [id number] [place] [address] [id number] February, Displacement of intervertebral disc, site unspecified, without myelopathy 722.2 ; Tension headache 307.81 and Cervicalgia 723.1 [facility] [id number], [place] [id number] February, [facility] [id number], [place] [id number] February, [facility] [id number], [place] [id number] February, [facility] [address]005[address]100[place] [address] Jan, [facility] [address]00565100[place], [place] [address] Jan, [facility] [id number] [place] [address] [id number] Jan, [facility] [place] [facility] [address] [place] [address] [id number], [place] [address] Jan, [facility] [place] [address] [facility] [id number], [place] [address] Jan, [facility] [address] [id number], [place] [id number] Dec, [facility] [place] [facility] [address] [facility] [id number], [place] [address] Dec, [facility] [address] [id number], [place] [id number] Dec, [facility] [place] [address] [facility] [id number], [place] [address] Dec, [facility] [address] [facility] [id number], [place] [id number] Nov, [facility] [place] [facility] [address] [facility] [id number], [place] [address] Nov, [facility] [address] [id number], [place] [id number] Oct, [facility] [place] [address] [facility] [id number], [place] [address] Oct, [facility] [address] [id number], [place] [id number] Oct, [facility] [place] [facility] [address] [facility] [id number], [place] [address] Oct, [facility] [address] [id number], [place] [id number] Oct, [facility] [address] [id number], [place] [id number] Oct, [facility] [place] [facility] [address] [facility] [id number], [place] [address] Oct, [facility] [place] [facility] [address] [facility] [id number], [place] [address] Oct, [facility] [address] [id number] [place] [id number] Oct, [facility] [address] [id number], [place] [address] Oct, [facility] [address] [id number], [place] [id number] Oct, [facility] [address] [facility] [id number], [place] [address] Oct, [facility] [address] [id number], [place] [id number] Sep, [facility] [place] [facility] [address] [id number], [place] [address] Sep, [facility] [address] [facility] [id number], [place] [id number] Aug, [facility] [place] [facility] [address] [facility] [id number], [place] [address] Aug, [facility] [address] [facility] [id number], [place] [address] Aug, [facility] [address] [id number], [place] [id number] Aug, [facility] [address] [facility] [id number], [place] [id number] Aug, [facility] [place] [facility] [address] [facility] [id number], [place] [address] Aug, [facility] [address] [id number], [place] [id number] Jul, [facility] [place] [facility] [address] [facility] [id number], [place] [address] Jul, [facility] [address] [id number], [place] [id number] Jul, [facility] [place] [facility] [address] [facility] [id number], [place] [address] Jul, [facility] [place] [facility] [address] [facility] [id number], [place] [address] Apr, [facility] [address] [id number] [place] [id number] Apr, [facility] [place] [facility] [address] [id number] [place] [address] Apr, [facility] [address] [id number] [place] [id number] Apr, [facility] [place] [facility] [address] [facility] [id number] [place] [address] Apr, [facility] [address] [id number] [place] [id number] Mar, [facility] [place] [facility] [address] [id number] [place] [address] Mar, [facility] [address] [facility] [id number] [place] [id number] Mar, [facility] [place] [facility] [address] [facility] [id number] [place] [address] Mar, [facility] [address] [facility] [id number] [place] [id number] February, [facility] [place] [facility] [address] [facility] [id number] [place] [address] February, [facility] [place] [facility] [address] [facility] [id number], [place] [address] February, [facility] [address] [facility] [id number] [place] [id number] February, [facility] [place] [facility] [address] [facility] [id number], [place] [address] February, [facility] [address] [facility] [id number] [place] [id number] February, [facility] [place] [facility] [address] [facility] [id number] [place] [address] February, [facility] [place] [facility] [address] [facility] [id number] [place] [address] Jan, [facility] [place] [facility] [address] [facility] [id number] [place] [address] Jan, [facility] [place] [facility] [address] [id number] [place] [address] Jan, [facility] [address] [id number] [place] [id number] Jan, [facility] [place] [facility] [address] [id number] [place] [address] Jan, [facility] [address] [id number] [place] [id number] Jan, [facility] [place] [facility] [address] [id number] [place] [address] Jan, [facility] [address] [id number] [place] [id number] Jan, [facility] [place] [facility] [address] [facility] [id number] [place] [address] Jan, [facility] [place] [facility] [address] [id number] [place] [address] Jan, [facility] [place] [facility] [address] [facility] [id number], [place] [address] Jan, [facility] [place] [facility] [address] [facility] [id number] [place] [address] Jan, [facility] [address] [facility] [id number] [place] [id number] Jan, [facility] [address] [id number], [place] [id number] Jan, [facility] [place] [facility] [address] [facility] [id number], [place] [address] Jan, [facility] [address] [id number] [place] [id number] Jan, [facility] [place] [facility] [address] [facility] [id number], [place] [address] Jan, [facility] [address] [facility] [id number] [place] [id number] Jan, [facility] [place] [facility] [address] [facility] [id number], [place] [address] Jan, [facility] [address] [id number] [place] [id number] Dec, [facility] [place] [facility] [address] [facility] [id number] [place] [address] Dec, [facility] [address] [id number] [place] [id number] Dec, [facility] [place] [facility] [address] [facility] [id number] [place] [address] Dec, [facility] [address] [id number] [place] [id number] Dec, [facility] [place] [facility] [address] [facility] [id number] [place] [address] Dec, [facility] [address] [id number] [place] [id number] Dec, [facility] [place] [facility] [address] [facility] [id number], [place] [address] Dec, [facility] [address] [id number] [place] [id number] Nov, [facility] [place] [facility] [address] [facility] [id number], [place] [address] Nov, [facility] [address] [id number] [place] [id number] Nov, [facility] [place] [facility] [address] [id number], [place] [address] Nov, [facility] [place] [facility] [address] [facility] [id number], [place] [address] Nov, [facility] [place] [facility] [address] [facility] [id number], [place] [address] Nov, [facility] [place] [facility] [address] [facility] [id number], [place] [address] Nov, [facility] [place] [facility] [address] [facility] [id number], [place] [address] Nov, [facility] [address] [id number], [place] 918642023 Oct, [facility] [place] [facility] [address] [facility] [id number] [place] [address] Oct, [facility] [place] [facility] [address] [facility] [id number], [place] [address] Oct, [facility] [address] [facility] [id number], [place] [id number] Oct, [facility] [place] [facility] [address] [facility] [id number] [place] [address] Oct, [facility] [address] [id number] [place] [id number] Oct, [facility] [place] [facility] [address]00565100[place], [place] [address] Oct, [facility] [address] [id number], [place] 895503068 Aug, [facility] [place] [facility] [address]00565100[place], [place] [address] Aug, [facility] [address] [facility] [id number], [place] [address]65432999 Jul, [facility] [place] [facility] [address] [id number], [place] [address] Mar, [facility] [address] [facility] [id number], [place] [id number] Mar, [facility] [place] [facility] [address] [id number], [place] [address] Mar, [facility] [address] [id number], [place] 223316579 Jan, [facility] [address] [id number], [place] 622632898 Sep, [facility] [place] [facility] [address] [facility] [id number], [place] [address] Sep, [facility] [address] [facility] [id number], [place] [id number] May, [facility] [address] [id number], [place] [id number] Apr, [facility] [address] [id number], [place] [address]0177 Mar, [facility] [address] [id number], [place] [id number] Mar, [facility] [address] [id number], [place] [id number] February, [facility] [id number], [place] [address]67299848 Jan, [facility] [id number] [place] [address] Mar, [facility] [id number] [place] [address] Sep, [facility] [id number] [place] [id number] Aug, [facility] [id number] [place] [phone] Aug, [facility] [id number] [address] Aug, [facility] [id number] [address] Aug, [facility] [id number] [address] Aug, [facility] [id number] [address] Jul, [facility] [id number] [place] [address] Apr, IMMUNIZATIONS No Known Immunizations SOCIAL HISTORY Never Assessed REASON FOR VISIT 2 month follow up on chronic pain. he Hernandez PLAN OF CARE Activity Details Follow Up 4 Weeks Reason:back pain VITAL SIGNS Height 66 in 2017-10-12 Weight 221.2 lbs 2017-10-12 Temperature 98.2 degrees Fahrenheit 2017-10-12 Heart Rate 62 bpm 2017-10-12 Respiratory Rate 16 2017-10-12 BMI 35.70 kg/m2 2017-10-12 Blood pressure systolic 118 mmHg 2017-10-12 Blood pressure diastolic 76 mmHg 2017-10-12 MEDICATIONS Medication Instructions Dosage Frequency Start Date End Date Duration Status Baclofen 10 mg Orally Three times a day 1 tablet with food or milk 8h Active Lidoderm 5 %(700 mg/patch) Externally Once a day 1 patch ea left and right upper back x 12 hours then remove patches for 12 hours 24h Active Depakote 125 MG Orally Twice a day 1 tab am 2 tab hs 1-2 tab Not-Taking TENS Unit device Use as directed Mar, Active Levothyroxine Sodium 25 MCG Orally Once a day 2 tablets 24h Active Omeprazole 20 mg Orally Once a day 1 capsules 24h Aug, Active Clonazepam 0.5 MG Orally Twice a day prn .5-1 tablet Mar, Active Gabapentin 600 MG Orally 3 times a day 2 am 1.5 midday 2 hs 8h Active Fluvoxamine Maleate 50 mg Orally Once a day 1 tablet at bedtime 24h May, 30 day(s) Active Walker - as directed w seat Jun, Active HydrOXYzine HCl 50 MG take 1 tablet by Oral route 1 time per day PRN itching Active Hydrocodone-Acetaminophen 5-325 MG Orally 3 times a day must last 1 m 1-2 tablet as needed Oct, Active Lidoderm 5 % Externally Once a day 1 patch ea left and right upper back x 12 hours then remove patches for 12 hours 24h Active Voltaren 1 % Transdermal 4 times a day as directed 6h Mar, Active Levothyroxine Sodium 88 MCG Orally Once a day 1 tablet on an empty stomach in the morning 24h Aug, Active Phenergan 25 mg oral 3 times a day 1 tablet 8h May, Active RESULTS No Results PROCEDURES No Known [...]
--- OUTSIDE RECORDS SUMMARY | 2019-04-19 10:38 | XMS REPORT ---
Author Author HILDA WOLF [facility] Address [address] [place] [address] Care Team Providers Care Human Resources Benefits Administrator Name Role Phone HILDA WOLF Unavailable PROBLEMS Type Condition ICD9-CM Code AEN05-ZC Code Onset Dates Condition Status SNOMED Code Problem Herniated nucleus pulposus M51.9 Active 17194553 Problem OCD (obsessive compulsive disorder) F42 Active 301615506 Problem Anxiety F41.9 Active 31802554 Problem Acquired hypothyroidism E03.9 Active 210015418 Problem Moderate episode of recurrent major depressive disorder F33.1 Active 118313856 Problem Cervicalgia M54.2 Active 50769866 Problem Polyneuropathy G62.9 Active 75063935 Problem Plantar fasciitis M72.2 Active 433294154 ALLERGIES No Information ENCOUNTERS Encounter Location Date Diagnosis [id number] [place] [address] [id number] February, Herniated nucleus pulposus M51.9 ; Polyneuropathy G62.9 and Anxiety F41.9 [place] [id number] [place] [address] [id number] Jan, Herniated nucleus pulposus M51.9 ; Moderate episode of recurrent major depressive disorder F33.1 and Acquired hypothyroidism E03.9 [address] [place] [address] [id number] Dec, Herniated nucleus pulposus M51.9 [place] [id number] [place] [address] [id number] Nov, Cervicalgia M54.2 and Herniated nucleus pulposus M51.9 [place] [id number] [place] [address] [id number] Oct, Herniated nucleus pulposus M51.9 and OCD (obsessive compulsive disorder) F42 [place] [id number] [place] [address] [id number] Oct, Herniated nucleus pulposus M51.9 [facility] [id number] [place] [address] [id number] Aug, Acquired hypothyroidism E03.9 [facility] [id number] [place] [address] [id number] Aug, Herniated nucleus pulposus M51.9 and Acquired hypothyroidism E03.9 [facility] [id number] [place] [address] Aug, [facility] [id number] [place] [address] [id number] Jul, Herniated nucleus pulposus M51.9 ; OCD (obsessive compulsive disorder) F42 and Pain of right upper extremity M79.601 [facility] [id number] [place] [address] [id number] Jul, Anxiety F41.9 [facility] [id number] [place] [address] [id number] Jul, [facility] [id number] [place] [address] [id number] Jun, OCD (obsessive compulsive disorder) F42 ; Herniated nucleus pulposus M51.9 and Acute cystitis with hematuria N30.01 [facility] [id number] [place] [address] [id number] Jun, Anxiety F41.9 [facility] [id number] [place] [address] [id number] Jun, [place] [id number] [place] [address] [id number] May, Acquired hypothyroidism E03.9 [facility] [id number] [place] [address] [id number] May, Polyneuropathy G62.9 ; OCD (obsessive compulsive disorder) F42 ; Herniated nucleus pulposus M51.9 ; Screening for lipid disorders Z13.220 ; Long-term use of high- risk medication Z79.899 and Major depressive disorder, recurrent, moderate F33.1 [facility] [address] [phone] May, Dental examination Z01.20 [facility] [id number] [place] [address] [id number] May, Herniated nucleus pulposus M51.9 [place] [id number] [place] [address] [id number] May, Herniated nucleus pulposus M51.9 and Anxiety F41.9 [place] [id number] [place] [address] [id number] Apr, Herniated nucleus pulposus M51.9 and Cervicalgia M54.2 [place] [id number] [place] [address] [id number] Apr, Moderate episode of recurrent major depressive disorder F33.1 [place] [id number] [place] [address] [id number] Apr, Herniated nucleus pulposus M51.9 [place] [id number] [place] [address] [id number] Apr, Herniated nucleus pulposus M51.9 [place] [id number] [place] [address] [id number] Mar, Moderate episode of recurrent major depressive disorder F33.1 [place] [id number] [place] [address] [id number] Mar, Anxiety F41.9 [place] [id number] [place] [address] [id number] Mar, [place] [id number] [place] [address] [id number] Mar, Herniated nucleus pulposus M51.9 and Cervicalgia M54.2 [address] [place] [address] [id number] February, Acquired hypothyroidism E03.[address] [id number] February, Polyneuropathy G62.9 ; Herniated nucleus pulposus M51.9 ; Cervicalgia M54.2 and Acquired hypothyroidism E03.9 [place] [id number] [place] [address] [id number] Jan, [facility] [id number] [id number] Jan, Cervicalgia M54.2 and Moderate episode of recurrent major depressive disorder F33.1 [facility] [id number] [place] [address] [id number] Dec, Cervicalgia M54.2 and Herniated nucleus pulposus M51.9 [facility] [id number] [place] [address] [id number] Nov, Lymph nodes enlarged R59.9 [facility] [id number] [place] [address] [id number] Oct, Cervicalgia M54.2 [facility] [id number] [place] [address] Sep, Polyneuropathy G62.9 [facility] [id number] [place] [address] [id number] Sep, Cervicalgia M54.2 and Herniated nucleus pulposus M51.9 [facility] [id number] [place] [address] [id number] Aug, Lumbar radiculopathy M54.16 and Spinal stenosis at L4-L5 level M48.06 [facility] [id number] [place] [address] [id number] Aug, Cervicalgia M54.2 and Herniated nucleus pulposus M51.9 [facility] [address] [place] [address] [id number] Jul, [facility] [id number] [place] [address] [id number] Jun, Cervicalgia M54.2 and Herniated nucleus pulposus M51.9 [place] [id number] [place] [address] [id number] May, Plantar fasciitis M72.2 [facility] [id number] [place] [address] [id number] May, [facility] [id number] [place] [address] [id number] Apr, Screening for lipid disorders Z13.220 ; Long-term use of high-risk medication Z79.899 and Major depressive disorder, recurrent, moderate F33.1 [place] [id number] [place] [address] [id number] Apr, [place] [id number] [place] [address] [id number] Mar, Herniated nucleus pulposus M51.9 and Cervicalgia M54.2 [place] [id number] [place] [address] [id number] Mar, Cervicalgia M54.2 and Herniated nucleus pulposus M51.9 [place] [id number] [place] [address] [id number] February, [place] [address] [place] [address] [id number] February, Cervicalgia M54.2 and Herniated nucleus pulposus M51.9 [place] [id number] [place] [address] [id number] Dec, Syncope, unspecified syncope type R55 [place] [id number] [place] [address] [id number] Dec, Cervicalgia M54.2 ; Herniated nucleus pulposus M51.9 and Moderate episode of recurrent major depressive disorder F33.1 [address] [place] [address] [id number] Dec, [place] [address] [place] [address] [id number] Dec, Herniated nucleus pulposus M51.9 and Cervicalgia M54.2 [address] [place] [address] [id number] Nov, [place] [id number] [place] [address] [id number] Nov, Herniated nucleus pulposus M51.9 and OCD (obsessive compulsive disorder) F42 [place] [id number] [place] [address] [id number] Sep, Displacement of intervertebral disc, site unspecified, without myelopathy 722.2 ; Cervicalgia 723.1 and Hypothyroidism, unspecified type E03.9 [facility] [id number] [id number] Sep, [facility] [id number] [place] [address] [id number] Jun, Displacement of intervertebral disc, site unspecified, without myelopathy 722.2 and Cervicalgia 723.1 [facility] [id number] [place] [address] [id number] Mar, Displacement of intervertebral disc, site unspecified, without myelopathy 722.2 and Shingles 053.9 [facility] [id number] [place] [address] [id number] February, Shingles 053.9 [facility] [id number] [place] [address] [id number] February, Displacement of intervertebral disc, site unspecified, without myelopathy 722.2 ; Tension headache 307.81 and Cervicalgia 723.1 [facility] [id number] [place] [address] [id number] February, [facility] [id number] [place] [address] [id number] February, [facility] [id number] [place] [address] [id number] February, [facility] [id number] [place] [address] Jan, [facility] [address] [place] [phone] Jan, [facility] [id number] [place] [address] [id number] Jan, [facility] [id number] [place] [phone] 14 Jan, 2015 [facility] [id number] [place] [phone] 13 Jan, 2015 [facility] [id number] [place] [address] [id number] Dec, [facility] [id number] [place] [address] Dec, [facility] [address] [id number] [place] [id number] Dec, [facility] [place] [facility] [address] [id number] [address] Dec, [facility] [address] [id number] [place] [id number] Nov, [facility] [place] [facility] [address] [id number] [address] Nov, [facility] [address] [id number] [place] [id number] Oct, [facility] [place] [facility] [address] [id number] [address] Oct, [facility] [address] [id number][place] [id number] Oct, [facility] [place] [facility] [address] [facility] [id number] [address] Oct, [facility] [address] [id number][place] [id number] Oct, [facility] [address] [id number] [place] [id number] Oct, [facility] [place] [facility] [address] [facility] [id number] [address] Oct, [facility] [place] [facility] [address] [facility] [id number] [address] Oct, [facility] [address] [id number], [place] [id number] Oct, [facility] [place] [facility] [address] [id number] [place] [address] Oct, [facility] [address] [id number][place] [id number] Oct, [facility] [place] [facility] [address] [facility] [id number] [address] Oct, [facility] [address] [id number] [place] [id number] Sep, [facility] [place] [facility] [address] [id number] [place] [address] Sep, [facility] [address] [id number] [place] [id number] Aug, [facility] [place] [facility] [address] [facility] [id number] [address] Aug, [facility] [place] [facility] [address] [facility] [id number] [address] Aug, [facility] [address] [id number] [place] [id number] Aug, [facility] [address] [id number] [place] [id number] Aug, [facility] [place] [facility] [address] [facility] [id number] [address] Aug, [facility] [address] [facility] [id number][place] [id number] Jul, [facility] [place] [facility] [address] [id number] [address] Jul, [facility] [address] [facility] [id number] [place] [id number] Jul, [facility] [place] [facility] [address] [facility] [id number] [place] [address] Jul, [facility] [place] [facility] [address] [facility] [id number] [place] [address] Apr, [facility] [address] [id number], [place] [id number] Apr, [facility] [place] [facility] [address] [id number] [address] Apr, [facility] [address] [facility] [id number], [place] [id number] Apr, [facility] [place] [facility] [address] [facility] [id number] [place] [address] Apr, [facility] [address] [id number] [place] [id number] Mar, [facility] [place] [facility] [address] [id number] [place] [address] Mar, [facility] [address] [id number] [place] [id number] Mar, [facility] [place] [facility] [address] [facility] [id number] [place] [address] Mar, [facility] [address] [facility] [id number] [place] [id number] February, [facility] [place] [facility] [address] [facility] [id number] [place] [address] February, [facility] [place] [facility] [address] [facility] [id number] [place] [address] February, [facility] [address] [facility] [id number] [place] 764395083 February, [facility] [place] [facility] [address] [facility] [id number] [address] February, [facility] [address] [facility] [id number] [place] [id number] February, [facility] [place] [facility] [address] [facility] [id number] [place] [address] February, [facility] [place] [facility] [address] [facility] [id number] [place] [address] Jan, [facility] [place] [facility] [address] [facility] [id number] [address] Jan, [facility] [place] [facility] [address] [facility] [id number] [place] [address] Jan, [facility] [address] [facility] [id number], [place] [id number] Jan, [facility] [place] [facility] [address] [facility] [id number] [place] [address] Jan, [facility] [address] [facility] [id number][place] [id number] Jan, [facility] [place] [facility] [address] [id number] [place] [address] 2014 [facility] [address] [facility] [id number] [place] 789739093 Jan, [facility] [place] [facility] [address] [facility] [id number] [place] [address] Jan, [facility] [place] [facility] [address] [facility] [id number] [place] [address] Jan, [facility] [place] [facility] [address] [facility] [id number] [place] [address] Jan, [facility] [place] [facility] [address] [facility] [id number] [place] [address] Jan, [facility] [address] [id number] [place] [id number] Jan, [facility] [address] [facility] [id number] [place] [id number] Jan, [facility] [place] [facility] [address] [facility] [id number] [address] Jan, [facility] [address] [facility] [id number] [place] [id number] Jan, [facility] [place] [facility] [address] [facility] [id number] [place] [address] Jan, [facility] [address] [facility] [id number] [place] 415895498 Jan, [facility] [place] [facility] [address] [facility] [id number] [address] Jan, [facility] [address] [id number] [place] [id number] Dec, [facility] [place] [facility] [address] [facility] [id number] [place] [address] Dec, [facility] [address] [facility] [id number] [place] 773304669 Dec, [facility] [place] [facility] [address] [facility] [id number] [address] Dec, [facility] [address] [id number] [place] [id number] Dec, [facility] [place] [facility] [address] [facility] [id number] [address] Dec, [facility] [address] [id number] [place] 0800[address]993 Dec, [facility] [place] [facility] [address] [facility] [id number] [place] [address] Dec, [facility] [address] [id number] [place] 7566[address] Nov, [facility] [place] [facility] [address] [facility] [id number] [address] Nov, [facility] [address] [facility] [id number] [place] [address]89[address] Nov, [facility] [place] [facility] [address] [facility] [id number] [address] Nov, [facility] [place] [facility] [address] [facility] [id number] [place] [address] Nov, [facility] [place] [facility] [address] [facility] [id number] [place] [address] Nov, [facility] [place] [facility] [address] [facility] [id number] [address] Nov, [facility] [place] [facility] [address] [facility] [id number] [address] Nov, [facility] [address] [facility] [id number], [place] 444[address]3952 Oct, [facility] [place] [facility] [address] [facility] [id number] [address] Oct, [facility] [place] [facility] [address] [facility] [id number] [place] [address] Oct, [facility] [address] [facility] [id number], [place] [address]10770193 Oct, [facility] [place] [facility] [address] [facility] [id number] [address] Oct, [facility] [address] [id number], [place] [id number] Oct, [facility] [address] [facility] [id number] [address] Oct, [facility] [address] [id number], [place] [id number] Aug, [facility] [address] [facility] [id number] [address] Aug, [facility] [address] [id number], [place] 912917369 Jul, [facility] [address] [facility] [id number] [address] Mar, [facility] [address] [id number], [place] [id number] Mar, [facility] [address]00565100[place] [address] Mar, [facility] [address] [id number], [place] 712735332 Jan, [facility] [address] [id number], [place] 714286826 Sep, [facility] [id number] [address] Sep, [facility] [address] [id number], [place] 3[address]345[address] May, [facility] [address] [id number] [place] 6[address] Apr, [facility] [address] [id number] [place] [id number] Mar, [facility] [address] [id number] [place] [id number] Mar, [facility] [address] [id number] [place] [id number] February, [facility] [address] [id number] [id number] Jan, [facility] [id number] [address] 15 Mar, 2011 [facility] [id number] [address] Sep, [facility] [id number] [address] Aug, [facility] [id number] [address] Aug, [facility] [id number] [address] Aug, [facility] [id number] [address] Aug, [facility] [id number] [address] Aug, [facility] [id number] [address] Jul, [facility] [id number] [address] Apr, IMMUNIZATIONS No Known Immunizations SOCIAL HISTORY Never Assessed REASON FOR VISIT Lidocaine patch PLAN OF CARE VITAL SIGNS MEDICATIONS No [...]
--- OUTSIDE RECORDS SUMMARY | 2019-04-19 10:38 | XMS REPORT ---
Author Author HILDA WOLF [facility] Address [address] [place] [address] Care Team Providers Care Presser Automatic Name Role Phone HILDA WOLF Unavailable PROBLEMS Type Condition ICD9-CM Code [id number] Code Onset Dates Condition Status SNOMED Code Problem Herniated nucleus pulposus M51.9 Active 57817440 Problem OCD (obsessive compulsive disorder) F42 Active 649798005 Problem Anxiety F41.9 Active 32825483 Problem Acquired hypothyroidism E03.9 Active 506943063 Problem Moderate episode of recurrent major depressive disorder F33.1 Active 551145829 Problem Cervicalgia M54.2 Active 57773786 Problem Polyneuropathy G62.9 Active 62230353 Problem Plantar fasciitis M72.2 Active 579814135 ALLERGIES No Information ENCOUNTERS Encounter Location Date Diagnosis [place] [id number] [place] [address] [id number] Dec, [place] [address] [id number] Dec, Herniated nucleus pulposus M51.9 [place] [id number] [place] [address] [id number] Nov, Cervicalgia M54.2 and Herniated nucleus pulposus M51.9 [place] [id number] [place] [address] [id number] Oct, Herniated nucleus pulposus M51.9 and OCD (obsessive compulsive disorder) F42 [place] [id number] [place] [address] [id number] Oct, Herniated nucleus pulposus M51.9 [place] [id number] [place] [address] [id number] Aug, Acquired hypothyroidism E03.9 [place] [id number] [place] [address] [id number] Aug, Herniated nucleus pulposus M51.9 and Acquired hypothyroidism E03.9 [facility] [place] [id number] [address] Aug, [facility] [id number] [place] [address] [id number] Jul, Herniated nucleus pulposus M51.9 ; OCD (obsessive compulsive disorder) F42 and Pain of right upper extremity M79.601 [facility] [id number] [place] [address] [id number] Jul, Anxiety F41.9 [place] [id number] [place] [address] [id number] Jul, [place] [id number] [place] [address] [id number] Jun, OCD (obsessive compulsive disorder) F42 ; Herniated nucleus pulposus M51.9 and Acute cystitis with hematuria N30.01 [facility] [id number] [place] [address] [id number] Jun, Anxiety F41.9 [place] [id number] [place] [address] [id number] Jun, [place] [id number] [place] [address] [id number] May, Acquired hypothyroidism E03.[id number] [place] [address] [id number] May, Polyneuropathy G62.9 ; OCD (obsessive compulsive disorder) F42 ; Herniated nucleus pulposus M51.9 ; Screening for lipid disorders Z13.220 ; Long-term use of high- risk medication Z79.899 and Major depressive disorder, recurrent, moderate F33.1 [facility] [address] [id number] [id number] May, Dental examination Z01.20 [facility] [id number] [place] [address] [id number] May, Herniated nucleus pulposus M51.9 [id number] [place] [address] [id number] May, Herniated nucleus pulposus M51.9 and Anxiety F41.9 [facility] [address] [id number] [id number] Apr, Herniated nucleus pulposus M51.9 and Cervicalgia M54.2 [facility] [id number] [place] [address] [id number] Apr, Moderate episode of recurrent major depressive disorder F33.1 [facility] [address] [id number] [place] [address] [id number] Apr, Herniated nucleus pulposus M51.9 [facility] [address] [id number] [place] [address] [id number] Apr, Herniated nucleus pulposus M51.9 [facility] [address] [id number] [place] [address] [id number] Mar, Moderate episode of recurrent major depressive disorder F33.1 [facility] [id number] [place] [address] [id number] Mar, Anxiety F41.9 [facility] [address] [id number] [place] [address] [id number] Mar, [facility] [address] [id number] [place] [address] [id number] Mar, Herniated nucleus pulposus M51.9 and Cervicalgia M54.2 [facility] [id number] [place] [address] [id number] February, Acquired hypothyroidism E03.9 [facility] [id number] [place] [address] [id number] February, Polyneuropathy G62.9 ; Herniated nucleus pulposus M51.9 ; Cervicalgia M54.2 and Acquired hypothyroidism E03.9 [facility] [address] [id number] [place] [address] [id number] Jan, [facility] [id number] [place] [address] [id number] Jan, Cervicalgia M54.2 and Moderate episode of recurrent major depressive disorder F33.1 [facility] [id number] [place] [address] [id number] Dec, Cervicalgia M54.2 and Herniated nucleus pulposus M51.9 [facility] [id number], [place] [id number] Nov, Lymph nodes enlarged R59.9 [facility] [id number] [place] [address] [id number] Oct, Cervicalgia M54.2 [facility] [place] [id number] [address] Sep, Polyneuropathy G62.9 [facility] [id number] [place] [address] [id number] Sep, Cervicalgia M54.2 and Herniated nucleus pulposus M51.9 [facility] [id number] [place] [address] [id number] Aug, Lumbar radiculopathy M54.16 and Spinal stenosis at L4-L5 level M48.06 [facility] [id number] [place] [address] [id number] Aug, Cervicalgia M54.2 and Herniated nucleus pulposus M51.9 [facility] [id number] [place] [address] [id number] Jul, [facility] [id number] [place] [address] [id number] Jun, Cervicalgia M54.2 and Herniated nucleus pulposus M51.9 [facility] [id number] [place] [address] [id number] May, Plantar fasciitis M72.2 [facility] [id number] [place] [address] [id number] May, [facility] [id number] [place] [address] [id number] Apr, Screening for lipid disorders Z13.220 ; Long-term use of high-risk medication Z79.899 and Major depressive disorder, recurrent, moderate F33.1 [facility] [id number], [place] [id number] Apr, [place] [id number] [place] [address] [id number] Mar, Herniated nucleus pulposus M51.9 and Cervicalgia M54.2 [facility] [id number] [place] [address] [id number] Mar, Cervicalgia M54.2 and Herniated nucleus pulposus M51.9 [facility] [id number] [place] [address] [id number] February, [place] [id number] [place] [address] [id number] February, Cervicalgia M54.2 and Herniated nucleus pulposus M51.9 [place] [id number] [place] [address] [id number] Dec, Syncope, unspecified syncope type R55 [place] [id number] [place] [address] [id number] Dec, Cervicalgia M54.2 ; Herniated nucleus pulposus M51.9 and Moderate episode of recurrent major depressive disorder F33.[address] [id number] Dec, [address] [id number] Dec, Herniated nucleus pulposus M51.9 and Cervicalgia M54.2 [place] [id number] [place] [address] [id number] Nov, [place] [id number] [place] [address] [id number] Nov, Herniated nucleus pulposus M51.9 and OCD (obsessive compulsive disorder) F42 [place] [id number] [place] [address] [id number] Sep, Displacement of intervertebral disc, site unspecified, without myelopathy 722.2 ; Cervicalgia 723.1 and Hypothyroidism, unspecified type E03.9 [place] [id number] [place] [address] [id number] Sep, [place] [id number] [place] [address] [id number] Jun, Displacement of intervertebral disc, site unspecified, without myelopathy 722.2 and Cervicalgia 723.1 [facility] [address] [id number][place] [id number] Mar, Displacement of intervertebral disc, site unspecified, without myelopathy 722.2 and Shingles 053.9 [facility] [address] [id number], [place] [id number] February, Shingles 053.9 [facility] [address] [id number][place] [id number] February, Displacement of intervertebral disc, site unspecified, without myelopathy 722.2 ; Tension headache 307.81 and Cervicalgia 723.1 [facility] [address] [id number], [place] [id number] February, [facility] [address] [id number], [place] [id number] February, [facility] [id number], [place] [id number] February, [facility] [id number] [address] Jan, [facility] [id number] [address] Jan, [facility] [id number], [place] [id number] Jan, [facility] [address] [id number] [address] Jan, [facility] [id number] [place] [address] Jan, [facility] [id number], [place] [id number] Dec, [facility] [place] [facility] [id number] [place] [address] Dec, [facility] [id number], [place] [id number] Dec, [facility] [address]100[place] [address] Dec, [facility] [address] [id number], [place] [id number] Nov, [facility] [place] [facility] [address] [facility] [id number] [address] Nov, [facility] [address] [facility] [id number], [place] [id number] Oct, [facility] [place] [facility] [address] [facility] [id number] [place] [address] Oct, [facility] [address] [id number], [place] [id number] Oct, [facility] [place] [facility] [address] [facility] [id number] [place] [address] Oct, [facility] [address] [facility] [id number], [place] [id number] Oct, [facility] [id number], [place] [id number] Oct, [facility] [place] [facility] [address] [address] Oct, [facility] [place] [facility] [address] [facility] [id number] [place] [address] Oct, [facility] [address] [facility] [id number], [place] [id number] Oct, [facility] [place] [facility] [id number] [address] Oct, [facility] [address] [facility] [id number], [place] [id number] Oct, [facility] [place] [facility] [address] [facility] [id number] [place] [address] Oct, [facility] [address] [facility] [id number], [place] [id number] Sep, [facility] [place] [facility] [address] [facility] [id number] [address] Sep, [facility] [address] [facility] [id number], [place] [id number] Aug, [facility] [place] [facility] [address] [facility] [id number] [place] [address] Aug, [facility] [place] [facility] [address] [facility] [id number] [place] [address] Aug, [facility] [address] [id number] [place] [id number] Aug, [facility] [address] [facility] [id number] [place] [id number] Aug, [facility] [place] [facility] [address] [facility] [id number] [place] [address] Aug, [facility] [address] [facility] [id number] [place] [id number] Jul, [facility] [place] [facility] [address] [facility] [id number] [place] [address] Jul, [facility] [address] [facility] [id number], [place] 811180238 Jul, [facility] [place] [facility] [address] [facility] [id number] [place] [address] Jul, [facility] [place] [facility] [address] [facility] [id number] [address] Apr, [facility] [address] [facility] [id number], [place] [id number] Apr, [facility] [place] [facility] [address] [facility] [id number] [place] [address] Apr, [facility] [address] [facility] [id number], [place] 7897[address]43 Apr, [facility] [place] [facility] [address] [facility] [id number] [place] [address] Apr, [facility] [address] [facility] [id number] [place] [id number] Mar, [facility] [place] [facility] [address] [facility] [id number] [place] [address] Mar, [facility] [address] [id number] [place] [id number] Mar, [facility] [place] [facility] [address] [id number] [address] Mar, [facility] [address] [id number] [place] [id number] February, [facility] [place] [facility] [address] [id number] [place] [address] February, [facility] [place] [facility] [address] [facility] [id number] [place] [address] February, [facility] [address] [facility] [id number] [place] [id number] February, [facility] [place] [facility] [address] [id number] [place] [address] February, [facility] [address] [facility] [id number], [place] [id number] February, [facility] [place] [facility] [address] [facility] [id number] [place] [address] February, [facility] [place] [facility] [address] [facility] [id number] [place] [address] Jan, [facility] [place] [facility] [address] [facility] [id number] [place] [address] Jan, [facility] [place] [facility] [address] [facility] [id number] [address] Jan, [facility] [address] [facility] [id number], [place] 538559207 Jan, [facility] [place] [facility] [address] [facility] [id number] [address] Jan, [facility] [address] [facility] [id number], [place] [id number] Jan, [facility] [place] [facility] [address] [facility] [id number] [place] [address] Jan, [facility] [address] [facility] [id number] [place] [id number] Jan, [facility] [place] [facility] [address] [id number] [address] Jan, [facility] [place] [facility] [address] [id number] [place] [address] Jan, [facility] [place] [facility] [address] [facility] [id number] [address] Jan, [facility] [place] [facility] [address] [facility] [id number] [place] [address] Jan, [facility] [address] [id number] [place] [address] Jan, [facility] [address] [id number] [place] 8464[address] Jan, [facility] [place] [facility] [address] [facility] [id number] [address] Jan, [facility] [address] [id number] [place] [id number] Jan, [facility] [place] [facility] [address] [facility] [id number] [address] Jan, [facility] [address] [id number] [place] 31338[address]93 Jan, [facility] [place] [facility] [address] [facility] [id number] [address] Jan, [facility] [address] [id number] [place] 3697[address] Dec, [facility] [place] [facility] [address] [facility] [id number] [address] Dec, [facility] [address] [id number], [place] [id number] Dec, [facility] [place] [facility] [address] [facility] [id number] [address] Dec, [facility] [address] [id number] [place] [address] Dec, [facility] [place] [facility] [address] [facility] [id number] [address] Dec, [facility] [address] [id number] [place] [address]57[address] Dec, [facility] [place] [facility] [address] [facility] [id number] [address] Dec, [facility] [address] [facility] [id number], [place] [id number] Nov, [facility] [place] [facility] [address] [facility] [id number] [place] [address] Nov, [facility] [address] [facility] [id number], [place] [id number] Nov, [facility] [place] [facility] [address] [facility] [id number] [place] [address] Nov, [facility] [place] [facility] [address] [facility] [id number] [address] Nov, [facility] [place] [facility] [address] [address] Nov, [facility] [place] [facility] [id number] [address] Nov, [facility] [place] [facility] [address] [address] Nov, [facility] [address] [facility] [id number], [place] [id number] Oct, [facility] [place] [facility] [address] [id number] [address] Oct, [facility] [place] [facility] [address] [facility] [id number] [place] [address] Oct, [facility] [address] [facility] [id number], [place] 625614633 Oct, [facility] [place] [facility] [address] [facility] [id number] [address] Oct, [facility] [address] [facility] [id number], [place] [id number] Oct, [facility] [place] [facility] [address] [facility] [id number] [address] Oct, [facility] [address] [id number] [place] [id number] Aug, [facility] [address] [facility] [id number] [address] Aug, [facility] [address] [facility] [id number] [place] [id number] Jul, [facility] [id number] [place] [address] Mar, [facility] [address] [id number] [place] [id number] Mar, [facility] [id number] [place] [address] Mar, [facility] [address] [id number] [place] [id number] Jan, [facility] [address] [id number] [place] [id number] Sep, [facility] [id number] [address] Sep, [facility] [address] [id number] [place] [id number] May, [facility] [address] [id number] [place] [id number] Apr, [facility] [address] [id number] [place] [id number] Mar, [facility] [address] [id number] [place] [id number] Mar, [facility] [address] [id number] [place] [id number] February, [facility] [address] [id number] [place] [id number] Jan, [facility] [address] [facility] [id number] [address] Mar, [facility] [id number] [address] Sep, [facility] [place] [address] [facility] [id number] [address] Aug, [facility], [place] [address] [id number] [address] Aug, [facility], [place] [address] [id number] [address] Aug, [facility], [place] [id number] [address] Aug, [facility], [place] [address] [id number] [address] Aug, [facility], [place] [id number] [address] Jul, [facility], [place] [address] [id number] [address] Apr, IMMUNIZATIONS No Known Immunizations SOCIAL HISTORY Never Assessed REASON FOR VISIT med refills PLAN OF CARE VITAL SIGNS MEDICATIONS Medication Instructions Dosage Frequency Start Date End Date Duration Status Phenergan 25 MG oral 3 times a [...]
--- OUTSIDE RECORDS SUMMARY | 2019-04-19 10:39 | XMS REPORT ---
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 Name Role Phone HILDA WOLF Unavailable PROBLEMS Type Condition ICD9-CM Code DOZ24-CZ Code Onset Dates Condition Status SNOMED Code Problem Herniated nucleus pulposus M51.9 Active 47108027 Problem OCD (obsessive compulsive disorder) F42 Active 849648697 Problem Anxiety F41.9 Active 05604596 Problem Acquired hypothyroidism E03.9 Active 606991539 Problem Moderate episode of recurrent major depressive disorder F33.1 Active 367882104 Problem Cervicalgia M54.2 Active 22509470 Problem Polyneuropathy G62.9 Active 71158012 Problem Plantar fasciitis M72.2 Active 239141207 ALLERGIES No Information ENCOUNTERS Encounter Location Date Diagnosis [id number] [place] [address] [id number] February, Herniated nucleus pulposus M51.9 ; Polyneuropathy G62.9 and Anxiety F41.9 [place] [id number] [place] [address] [id number] Jan, Herniated nucleus pulposus M51.9 ; Moderate episode of recurrent major depressive disorder F33.1 and Acquired hypothyroidism E03.[id number] [place] [address] [id number] Dec, Herniated nucleus pulposus M51.9 [place] [id number] [place] [address] [id number] Nov, Cervicalgia M54.2 and Herniated nucleus pulposus M51.9 [place] [id number] [place] [address] [id number] Oct, Herniated nucleus pulposus M51.9 and OCD (obsessive compulsive disorder) F42 [place] [id number] [place] [address] [id number] Oct, Herniated nucleus pulposus M51.9 [facility] [id number] [place] [address] [id number] Aug, Acquired hypothyroidism E03.9 [facility] [id number] [place] [address] [id number] Aug, Herniated nucleus pulposus M51.9 and Acquired hypothyroidism E03.9 [facility] [id number] [place] [address] Aug, [facility] [id number] [place] [address] [id number] Jul, Herniated nucleus pulposus M51.9 ; OCD (obsessive compulsive disorder) F42 and Pain of right upper extremity M79.601 [facility] [id number] [place] [address] [id number] Jul, Anxiety F41.9 [facility] [id number] [place] [address] [id number] Jul, [facility] [id number] [place] [address] [id number] Jun, OCD (obsessive compulsive disorder) F42 ; Herniated nucleus pulposus M51.9 and Acute cystitis with hematuria N30.01 [facility] [id number] [place] [address] [id number] Jun, Anxiety F41.9 [facility] [id number] [place] [address] [id number] Jun, [place] [id number] [place] [address] [id number] May, Acquired hypothyroidism E03.9 [facility] [id number] [place] [address] [id number] May, Polyneuropathy G62.9 ; OCD (obsessive compulsive disorder) F42 ; Herniated nucleus pulposus M51.9 ; Screening for lipid disorders Z13.220 ; Long-term use of high- risk medication Z79.899 and Major depressive disorder, recurrent, moderate F33.1 [facility] [address] [id number] May, Dental examination Z01.20 [facility] [id number] [place] [address] [id number] May, Herniated nucleus pulposus M51.9 [place] [id number] [place] [address] [id number] May, Herniated nucleus pulposus M51.9 and Anxiety F41.9 [place] [id number] [place] [address] [id number] Apr, Herniated nucleus pulposus M51.9 and Cervicalgia M54.2 [place] [id number] [place] [address] [id number] Apr, Moderate episode of recurrent major depressive disorder F33.1 [place] [id number] [place] [address] [id number] Apr, Herniated nucleus pulposus M51.9 [place] [id number] [place] [address] [id number] Apr, Herniated nucleus pulposus M51.9 [place] [id number] [place] [address] [id number] Mar, Moderate episode of recurrent major depressive disorder F33.1 [place] [id number] [place] [address] [id number] Mar, Anxiety F41.9 [place] [id number] [place] [address] [id number] Mar, [place] [id number] [place] [address] [id number] Mar, Herniated nucleus pulposus M51.9 and Cervicalgia M54.2 [address] [place] [address] [id number] February, Acquired hypothyroidism E03.[address] [id number] February, Polyneuropathy G62.9 ; Herniated nucleus pulposus M51.9 ; Cervicalgia M54.2 and Acquired hypothyroidism E03.9 [place] [id number] [place] [address] [id number] Jan, [facility] [id number] [id number] Jan, Cervicalgia M54.2 and Moderate episode of recurrent major depressive disorder F33.1 [facility] [id number] [place] [address] [id number] Dec, Cervicalgia M54.2 and Herniated nucleus pulposus M51.9 [facility] [id number] [place] [address] [id number] Nov, Lymph nodes enlarged R59.9 [facility] [id number] [place] [address] [id number] Oct, Cervicalgia M54.2 [facility] [id number] [place] [address] Sep, Polyneuropathy G62.9 [facility] [id number] [place] [address] [id number] Sep, Cervicalgia M54.2 and Herniated nucleus pulposus M51.9 [facility] [id number] [place] [address] [id number] Aug, Lumbar radiculopathy M54.16 and Spinal stenosis at L4-L5 level M48.06 [facility] [id number] [place] [address] [id number] Aug, Cervicalgia M54.2 and Herniated nucleus pulposus M51.9 [facility] [address] [place] [address] [id number] Jul, [facility] [id number] [place] [address] [id number] Jun, Cervicalgia M54.2 and Herniated nucleus pulposus M51.9 [place] [id number] [place] [address] [id number] May, Plantar fasciitis M72.2 [facility] [id number] [place] [address] [id number] May, [facility] [id number] [place] [address] [id number] Apr, Screening for lipid disorders Z13.220 ; Long-term use of high-risk medication Z79.899 and Major depressive disorder, recurrent, moderate F33.1 [place] [id number] [place] [address] [id number] Apr, [place] [id number] [place] [address] [id number] Mar, Herniated nucleus pulposus M51.9 and Cervicalgia M54.2 [place] [id number] [place] [address] [id number] Mar, Cervicalgia M54.2 and Herniated nucleus pulposus M51.9 [place] [id number] [place] [address] [id number] February, [place] [id number] [place] [address] [id number] February, Cervicalgia M54.2 and Herniated nucleus pulposus M51.9 [place] [id number] [place] [address] [id number] Dec, Syncope, unspecified syncope type R55 [place] [id number] [place] [address] [id number] Dec, Cervicalgia M54.2 ; Herniated nucleus pulposus M51.9 and Moderate episode of recurrent major depressive disorder F33.1 [address] [place] [address] [id number] Dec, [place] [id number] [place] [address] [id number] Dec, Herniated nucleus pulposus M51.9 and Cervicalgia M54.2 [address] [place] [address] [id number] Nov, [place] [id number] [place] [address] [id number] Nov, Herniated nucleus pulposus M51.9 and OCD (obsessive compulsive disorder) F42 [place] [id number] [place] [address] [id number] Sep, Displacement of intervertebral disc, site unspecified, without myelopathy 722.2 ; Cervicalgia 723.1 and Hypothyroidism, unspecified type E03.9 [facility] [id number] [id number] Sep, [facility] [id number] [place] [address] [id number] Jun, Displacement of intervertebral disc, site unspecified, without myelopathy 722.2 and Cervicalgia 723.1 [facility] [id number] [place] [address] [id number] Mar, Displacement of intervertebral disc, site unspecified, without myelopathy 722.2 and Shingles 053.9 [facility] [id number] [place] [address] [id number] February, Shingles 053.9 [facility] [id number] [place] [address] [id number] February, Displacement of intervertebral disc, site unspecified, without myelopathy 722.2 ; Tension headache 307.81 and Cervicalgia 723.1 [facility] [id number] [place] [address] [id number] February, [facility] [id number] [place] [address] [id number] February, [facility] [id number] [place] [address] [id number] February, [facility] [id number] [place] [phone] Jan, [facility] [id number] [place] [phone] Jan, [facility] [id number] [place] [address] [id number] Jan, [facility] [id number] [place] [phone] 14 Jan, 2015 [facility] [id number] [place] [phone] 13 Jan, 2015 [facility] [id number] [place] [address] [id number] Dec, [facility] [id number] [place] [phone] Dec, [facility] [address] [id number] [place] [id number] Dec, [facility] [place] [facility] [address] [id number], [place] [address] Dec, [facility] [address] [id number] [place] [id number] Nov, [facility] [place] [facility] [address] [id number], [place] [address] Nov, [facility] [address] [id number] [place] [id number] Oct, [facility] [place] [facility] [address] [id number], [place] [address] Oct, [facility] [address] [id number][place] [id number] Oct, [facility] [place] [facility] [address] [facility] [id number], [place] [address] Oct, [facility] [address] [id number][place] [id number] Oct, [facility] [address] [id number] [place] [id number] Oct, [facility] [place] [facility] [address] [facility] [id number], [place] [address] Oct, [facility] [place] [facility] [address] [facility] [id number], [place] [address] Oct, [facility] [address] [id number][place] [id number] Oct, [facility] [place] [facility] [address] [id number], [place] [address] Oct, [facility] [address] [id number][place] [id number] Oct, [facility] [place] [facility] [address] [facility] [id number], [place] [address] Oct, [facility] [address] [id number] [place] [id number] Sep, [facility] [place] [facility] [address] [id number] [place] [address] Sep, [facility] [address] [id number] [place] [id number] Aug, [facility] [place] [facility] [address] [facility] [id number], [place] [address] Aug, [facility] [place] [facility] [address] [facility] [id number], [place] [address] Aug, [facility] [address] [id number] [place] [id number] Aug, [facility] [address] [id number] [place] [id number] Aug, [facility] [place] [facility] [address] [facility] [id number], [place] [address] Aug, [facility] [address] [facility] [id number][place] [id number] Jul, [facility] [place] [facility] [address] [id number], [place] [address] Jul, [facility] [address] [facility] [id number] [place] [id number] Jul, [facility] [place] [facility] [address] [facility] [id number], [place] [address] Jul, [facility] [place] [facility] [address] [facility] [id number], [place] [address] Apr, [facility] [address] [id number][place] [id number] Apr, [facility] [place] [facility] [address] [id number], [place] [address] Apr, [facility] [address] [facility] [id number][place] [id number] Apr, [facility] [place] [facility] [address] [facility] [id number], [place] [address] Apr, [facility] [address] [id number] [place] [id number] Mar, [facility] [place] [facility] [address] [id number] [place] [address] Mar, [facility] [address] [id number] [place] [id number] Mar, [facility] [place] [facility] [address] [facility] [id number] [place] [address] Mar, [facility] [address] [facility] [id number] [place] [id number] February, [facility] [place] [facility] [address] [facility] [id number] [place] [address] February, [facility] [place] [facility] [address] [facility] [id number] [place] [address] February, [facility] [address] [facility] [id number] [place] [id number] February, [facility] [place] [facility] [address] [facility] [id number], [place] [address] February, [facility] [address] [facility] [id number] [place] [id number] February, [facility] [place] [facility] [address] [facility] [id number], [place] [address] February, [facility] [place] [facility] [address] [facility] [id number] [place] [address] Jan, [facility] [place] [facility] [address] [facility] [id number], [place] [address] Jan, [facility] [place] [facility] [address] [facility] [id number] [place] [address] Jan, [facility] [address] [facility] [id number], [place] [id number] Jan, [facility] [place] [facility] [address] [facility] [id number] [place] [address] Jan, [facility] [address] [facility] [id number], [place] [address] Jan, [facility] [place] [facility] [address] [id number] [place] [address] 2014 [facility] [address] [facility] [id number] [place] [id number] Jan, [facility] [place] [facility] [address] [facility] [id number] [place] [address] Jan, [facility] [place] [facility] [address] [facility] [id number] [place] [address] Jan, [facility] [place] [facility] [address] [facility] [id number] [place] [address] Jan, [facility] [place] [facility] [address] [facility] [id number] [place] [address] Jan, [facility] [address] [id number] [place] [id number] Jan, [facility] [address] [facility] [id number] [place] [id number] Jan, [facility] [place] [facility] [address] [facility] [id number], [place] [address] Jan, [facility] [address] [facility] [id number] [place] [id number] Jan, [facility] [place] [facility] [address] [facility] [id number], [place] [address] Jan, [facility] [address] [facility] [id number] [place] [id number] Jan, [facility] [place] [facility] [address] [facility] [id number], [place] [address] Jan, [facility] [address] [id number] [place] [id number] Dec, [facility] [place] [facility] [address] [facility] [id number] [place] [address] Dec, [facility] [address] [facility] [id number] [place] [id number] Dec, [facility] [place] [facility] [address] [facility] [id number], [place] [address] Dec, [facility] [address] [id number] [place] [id number] Dec, [facility] [place] [facility] [address] [facility] [id number], [place] [address] Dec, [facility] [address] [id number] [place] [id number] Dec, [facility] [place] [facility] [address] [facility] [id number] [place] [address] Dec, [facility] [address] [id number] [place] [id number] Nov, [facility] [place] [facility] [address] [facility] [id number], [place] [address] Nov, [facility] [address] [facility] [id number] [place] 085723626 Nov, [facility] [place] [facility] [address] [facility] [id number], [place] [address] Nov, [facility] [place] [facility] [address] [facility] [id number] [place] [address] Nov, [facility] [place] [facility] [address] [facility] [id number], [place] [address] Nov, [facility] [place] [facility] [address] [facility] [id number], [place] [address] Nov, [facility] [place] [facility] [address] [facility] [id number], [place] [address] Nov, [facility] [address] [facility] [id number], [place] 688506360 Oct, [facility] [place] [facility] [address] [facility] [id number], [place] [address] Oct, [facility] [place] [facility] [address] [facility] [id number] [place] [address] Oct, [facility] [address] [facility] [id number], [place] 549000000 Oct, [facility] [place] [facility] [address] [facility] [id number], [place] [address] Oct, [facility] [address] [id number], [place] [id number] Oct, [facility] [address] [facility] [id number], [place] [address] Oct, [facility] [address] [id number], [place] [id number] Aug, [facility] [address] [facility] [id number], [place] [address] Aug, [facility] [address] [id number], [place] [id number] Jul, [facility] [address] [facility] [id number], [place] [address] Mar, [facility] [address] [id number], [place] [address]55[address] Mar, [facility] [address]00565100[place], [place] [address] Mar, [facility] [address] [id number], [place] [id number] Jan, [facility] [address] [id number], [place] 416962171 Sep, [facility] [address] [id number], [place] [address] Sep, [facility] [address] [id number], [place] [id number] May, [facility] [address] [id number] [place] [id number] Apr, [facility] [address] [id number] [place] [id number] Mar, [facility] [address] [id number] [place] 214945842 Mar, [facility] [address] [id number] [place] [id number] February, [facility] [address] [id number], [place] [id number] Jan, [facility] [address]00565100[place], [place] [address] Mar, [facility] [address]00565100[place], [place] [address] Sep, [facility] [id number], [place] [address] Aug, [facility] [id number], [place] [address] Aug, [facility] [id number], [place] [address] Aug, [facility] [id number], [place] [address] Aug, [facility] [id number] [place] [address] Aug, [facility] [id number] [place] [address] Jul, [facility] [id number], [place] [address] Apr, IMMUNIZATIONS No Known Immunizations SOCIAL HISTORY Never Assessed REASON FOR VISIT phone call PLAN OF CARE VITAL SIGNS MEDICATIONS Medication Instructions Dosage Frequency Start Date End Date Duration Status Levothyroxine Sodium 88 MCG Orally Once a day 1 tablet on an empty stomach in the morning 24h Aug, Active RESULTS No Results PROCEDURES No Known [...] Surgical History disc removed between C6-C7-had fusion 4/17 Hospitalization History childbirth, surgeries
--- OUTSIDE RECORDS SUMMARY | 2019-04-19 10:39 | XMS REPORT ---
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 Name Role Phone HILDA WOLF Unavailable PROBLEMS Type Condition ICD9-CM Code [id number] Code Onset Dates Condition Status SNOMED Code Problem Herniated nucleus pulposus M51.9 Active 64367027 Problem OCD (obsessive compulsive disorder) F42 Active 206432113 Problem Anxiety F41.9 Active 60245538 Problem Acquired hypothyroidism E03.9 Active 311924331 Problem Moderate episode of recurrent major depressive disorder F33.1 Active 812676069 Problem Cervicalgia M54.2 Active 60367752 Problem Polyneuropathy G62.9 Active 08743138 Problem Plantar fasciitis M72.2 Active 536640566 ALLERGIES Substance Reaction Event Type Date Status Nortriptyline HCl headache, night fu Drug Allergy Aug, Active Lamictal hives Drug Allergy Aug, Active Clindamycin HCl hives Drug Allergy Aug, Active Latex hives Non Drug Allergy Aug, Active ENCOUNTERS Encounter Location Date Diagnosis [id number] [place] [address] [id number] February, Herniated nucleus pulposus M51.9 ; Polyneuropathy G62.9 and Anxiety F41.[id number] [place] [address] [id number] Jan, Herniated nucleus pulposus M51.9 ; Moderate episode of recurrent major depressive disorder F33.1 and Acquired hypothyroidism E03.[id number] [place] [address] [id number] Dec, Herniated nucleus pulposus M51.9 [address] [place] [address] [id number] Nov, Cervicalgia M54.2 and Herniated nucleus pulposus M51.9 [address] [id number] Oct, Herniated nucleus pulposus M51.9 and OCD (obsessive compulsive disorder) F42 [facility] [id number] [place] [address] [id number] Oct, Herniated nucleus pulposus M51.9 [facility] [id number] [place] [address] [id number] Aug, Acquired hypothyroidism E03.9 [facility] [id number] [place] [address] [id number] Aug, Herniated nucleus pulposus M51.9 and Acquired hypothyroidism E03.9 [facility] [id number] [place] [phone] Aug, [facility] [id number] [place] [address] [id number] Jul, Herniated nucleus pulposus M51.9 ; OCD (obsessive compulsive disorder) F42 and Pain of right upper extremity M79.601 [facility] [id number] [place] [address] [id number] Jul, Anxiety F41.9 [facility] [id number] [place] [address] [id number] Jul, [facility] [id number] [place] [address] [id number] Jun, OCD (obsessive compulsive disorder) F42 ; Herniated nucleus pulposus M51.9 and Acute cystitis with hematuria N30.01 [facility] [id number] [place] [address] [id number] Jun, Anxiety F41.9 [facility] [id number] [place] [address] [id number] Jun, [facility] [id number] [place] [address] [id number] May, Acquired hypothyroidism E03.9 [facility] [id number] [place] [address] [id number] May, Polyneuropathy G62.9 ; OCD (obsessive compulsive disorder) F42 ; Herniated nucleus pulposus M51.9 ; Screening for lipid disorders Z13.220 ; Long-term use of high- risk medication Z79.899 and Major depressive disorder, recurrent, moderate F33.1 [facility] [address] [id number] [id number] May, Dental examination Z01.20 [facility] [address] [id number] [place] [id number] May, Herniated nucleus pulposus M51.9 [facility] [id number] [place] [address] [id number] May, Herniated nucleus pulposus M51.9 and Anxiety F41.9 [facility] [id number] [place] [address] [id number] Apr, Herniated nucleus pulposus M51.9 and Cervicalgia M54.2 [facility] [id number] [place] [address] [id number] Apr, Moderate episode of recurrent major depressive disorder F33.1 [facility] [id number] [place] [address] [id number] Apr, Herniated nucleus pulposus M51.9 [facility] [address] [id number] [place] [address] [id number] Apr, Herniated nucleus pulposus M51.9 [facility] [id number] [place] [address] [id number] Mar, Moderate episode of recurrent major depressive disorder F33.1 [facility] [address] [id number] [place] [address] [id number] Mar, Anxiety F41.9 [facility] [id number] [place] [address] [id number] Mar, [facility] [id number] [place] [address] [id number] Mar, Herniated nucleus pulposus M51.9 and Cervicalgia M54.2 [facility] [address] [id number] [place] [address] [id number] February, Acquired hypothyroidism E03.9 [facility] [id number] [place] [address] [id number] February, Polyneuropathy G62.9 ; Herniated nucleus pulposus M51.9 ; Cervicalgia M54.2 and Acquired hypothyroidism E03.9 [facility] [id number] [place] [address] [id number] Jan, [facility] [id number] [place] [address] [id number] Jan, Cervicalgia M54.2 and Moderate episode of recurrent major depressive disorder F33.1 [facility] [address] [id number] Dec, Cervicalgia M54.2 and Herniated nucleus pulposus M51.9 [address] [place] [id number] [place] [address] [id number] Nov, Lymph nodes enlarged R59.9 [id number] [place] [address] [id number] Oct, Cervicalgia M54.2 [facility] [id number] [place] [phone] Sep, Polyneuropathy G62.9 [facility] [address] [place] [address] [id number] Sep, Cervicalgia M54.2 and Herniated nucleus pulposus M51.9 [id number] [place] [address] [id number] Aug, Lumbar radiculopathy M54.16 and Spinal stenosis at L4-L5 level M48.06 [id number] [place] [address] [id number] Aug, Cervicalgia M54.2 and Herniated nucleus pulposus M51.9 [facility] [address] [place] [address] [id number] Jul, [place] [id number] [place] [address] [id number] Jun, Cervicalgia M54.2 and Herniated nucleus pulposus M51.9 [id number] [place] [address] [id number] May, Plantar fasciitis M72.2 [address] [id number] [id number] May, [facility] [id number] [place] [address] [id number] Apr, Screening for lipid disorders Z13.220 ; Long-term use of high-risk medication Z79.899 and Major depressive disorder, recurrent, moderate F33.1 [facility] [id number] [place] [address] [id number] Apr, [facility] [id number] [place] [address] [id number] Mar, Herniated nucleus pulposus M51.9 and Cervicalgia M54.2 [place] [id number] [place] [address] [id number] Mar, Cervicalgia M54.2 and Herniated nucleus pulposus M51.9 [facility] [id number] [place] [address] [id number] February, [place] [id number] [place] [address] [id number] February, Cervicalgia M54.2 and Herniated nucleus pulposus M51.9 [facility] [id number] [place] [address] [id number] Dec, Syncope, unspecified syncope type R55 [facility] [id number] [place] [address] [id number] Dec, Cervicalgia M54.2 ; Herniated nucleus pulposus M51.9 and Moderate episode of recurrent major depressive disorder F33.1 [address] [id number] [place] [address] [id number] Dec, [facility] [id number] [place] [address] [id number] Dec, Herniated nucleus pulposus M51.9 and Cervicalgia M54.2 [id number] [place] [address] [id number] Nov, [facility] [id number] [place] [address] [id number] Nov, Herniated nucleus pulposus M51.9 and OCD (obsessive compulsive disorder) F42 [facility] [id number] [place] [id number] 14 Sep, 2015 Displacement of intervertebral disc, site unspecified, without myelopathy 722.2 ; Cervicalgia 723.1 and Hypothyroidism, unspecified type E03.9 [facility] [id number] [place] [id number] Sep, [facility] [id number] [place] [address] [id number] Jun, Displacement of intervertebral disc, site unspecified, without myelopathy 722.2 and Cervicalgia 723.1 [facility] [id number] [place] [address] [id number] Mar, Displacement of intervertebral disc, site unspecified, without myelopathy 722.2 and Shingles 053.9 [facility] [id number] [place] [address] [id number] February, Shingles 053.9 [facility] [id number] [place] [address] [id number] February, Displacement of intervertebral disc, site unspecified, without myelopathy 722.2 ; Tension headache 307.81 and Cervicalgia 723.1 [facility] [id number] [place] [address] [id number] February, [facility] [id number] [place] [address] [id number] February, [facility] [id number] [place] [address] [id number] February, [facility] [id number] [place] [phone] Jan, [facility] [id number] [place] [address] Jan, [facility] [id number] [place] [address] [id number] Jan, [facility] [id number] [place] [phone] Jan, [facility] [address] [address] Jan, [facility] [address] [id number] [place] [id number] Dec, [facility] [place] [facility] [address] [facility] [id number], [place] [address] Dec, [facility] [address] [id number] [place]OCK[place] [id number] Dec, [facility] [place] [facility] [address] [facility] [id number], [place] [address] Dec, [facility] [address] [id number] [place]OCK[place] [id number] Nov, [facility] [place] [facility] [address] [facility] [id number], [place] [address] Nov, [facility] [address] [id number] [place] [id number] Oct, [facility] [place] [facility] [address] [facility] [id number], [place] [address] Oct, [facility] [address] [id number] [place] [id number] Oct, [facility] [place] [facility] [address] [facility] [id number], [place] [address] Oct, [facility] [address] [id number] [place]OCK[place] [id number] Oct, [facility] [address] [id number] [place] [id number] Oct, [facility] [place] [facility] [address] [facility] [id number], [place] [address] Oct, [facility] [place] [facility] [address] [facility] [id number], [place] [address] Oct, [facility] [address] [id number] [place]OCK[place] [id number] Oct, [facility] [place] [facility] [address] [facility] [id number], [place] [address] Oct, [facility] [address] [id number] [place] [id number] Oct, [facility] [place] [facility] [address] [id number] [place] [address] Oct, [facility] [address] [id number] [place] [id number] Sep, [facility] [place] [facility] [address] [facility] [id number] [place] [address] Sep, [facility] [address] [id number] [place] [id number] Aug, [facility] [place] [facility] [address] [facility] [id number] [place] [address] Aug, [facility] [place] [facility] [address] [facility] [id number] [place] [address] Aug, [facility] [address] [facility] [id number] [place] [id number] Aug, [facility] [address] [facility] [id number] [place] [id number] Aug, [facility] [place] [facility] [address] [facility] [id number], [place] [address] Aug, [facility] [address] [facility] [id number] [place] [id number] Jul, [facility] [place] [facility] [address] [facility] [id number], [place] [address] Jul, [facility] [address] [facility] [id number] [place]OCK[place] [id number] Jul, [facility] [place] [facility] [address] [facility] [id number], [place] [address] Jul, [facility] [place] [facility] [address] [facility] [id number], [place] [address] Apr, [facility] [address] [facility] [id number] [place] 746[address] Apr, [facility] [place] [facility] [address] [facility] [id number], [place] [address] Apr, [facility] [address] [id number] [place] [id number] Apr, [facility] [place] [facility] [address] [id number] [place] [address] Apr, [facility] [address] [id number] [place] [id number] Mar, [facility] [place] [facility] [address] [facility] [id number] [place] [address] Mar, [facility] [address] [id number] [place] [id number] Mar, [facility] [place] [facility] [address] [id number] [place] [address] Mar, [facility] [address] [facility] [id number] [place] [address] February, [facility] [place] [facility] [address] [facility] [id number] [place] [address] February, [facility] [place] [facility] [address] [facility] [id number], [place] [address] February, [facility] [address] [facility] [id number] [place] 9202389[address] February, [facility] [place] [facility] [address] [facility] [id number] [place] [address] February, [facility] [address] [facility] [id number] [place] [address] February, [facility] [place] [facility] [address] [facility] [id number] [place] [address] February, [facility] [place] [facility] [address] [id number] [place] [address] Jan, [facility] [place] [facility] [address] [facility] [id number] [place] [address] Jan, [facility] [place] [facility] [address] [facility] [id number] [place] [address] Jan, [facility] [address] [facility] [id number] [place]OCK[place] 601979372 Jan, [facility] [place] [facility] [address] [id number] [place] [address] Jan, [facility] [address] [id number] [place] [id number] Jan, [facility] [place] [facility] [address] [facility] [id number] [place] [address] Jan, [facility] [address] [id number] [place] [id number] Jan, [facility] [place] [facility] [address] [facility] [id number] [place] [address] Jan, [facility] [place] [facility] [address] [facility] [id number] [place] [address] Jan, [facility] [place] [facility] [address] [facility] [id number] [place] [address] Jan, [facility] [place] [facility] [id number] [place] [place] [address] Jan, [facility] [address] [id number] [place]OCK[place] [id number] Jan, [facility] [address] [id number] [place] [id number] Jan, [facility] [place] [facility] [address] [facility] [id number], [place] [address] Jan, [facility] [address] [id number] [place] 826341576 Jan, [facility] [place] [facility] [address] [facility] [id number], [place] [address] Jan, [facility] [address] [id number] [place] 037890623 Jan, [facility] [place] [facility] [address] [facility] [id number], [place] [address] Jan, [facility] [address] [id number] [place] [id number] Dec, [facility] [place] [facility] [address] [facility] [id number], [place] [address] Dec, [facility] [address] [id number] [place] [id number] Dec, [facility] [place] [facility] [address] [id number] [place] [address] Dec, [facility] [address] [id number] [place] 645707130 Dec, [facility] [place] [facility] [address] [facility] [id number] [place] [address] Dec, [facility] [address] [id number] [place] 1832601[address] Dec, [facility] [place] [facility] [address] [facility] [id number] [place] [address] Dec, [facility] [address] [id number] [place] [id number] Nov, [facility] [place] [facility] [address] [id number] [address] Nov, [facility] [address] [facility] [id number] [place] 987[address]75[address] Nov, [facility] [place] [facility] [address] [facility] [id number], [place] [address] Nov, [facility] [place] [facility] [address] [facility] [id number], [place] [address] Nov, [facility] [place] [facility] [address] [facility] [id number], [place] [address] Nov, [facility] [place] [facility] [address] [facility] [id number], [place] [address] Nov, [facility] [place] [facility] [address] [facility] [id number], [place] [address] Nov, [facility] [address] [facility] [id number] [place] 0385[address] Oct, [facility] [place] [facility] [address] [facility] [id number], [place] [address] Oct, [facility] [place] [facility] [address] [facility] [id number], [place] [address] Oct, [facility] [address] [id number] [place] 012391956 Oct, [facility] [place] [facility] [address] [facility] [id number], [place] [address] Oct, [facility] [address] [id number] [place] 682169143 Oct, [facility] [place] [facility] [address] [facility] [id number], [place] [address] Oct, [facility] [address] [id number] [place] [id number] Aug, [facility] [address] [facility] [id number], [place] [address] Aug, [facility] [address] [id number] [place] [id number] Jul, [facility] [address] [address] Mar, [facility] [address] [id number] [place] 189705152 Mar, [facility] [address] [facility] [id number], [place] [address] Mar, [facility] [address] [id number] [place]OCK[place] [id number] Jan, [facility] [address] [id number] [place] [id number] Sep, [facility] [place] [facility] [address] [facility] [id number], [place] [address] Sep, [facility] [address] [id number] [place] [id number] May, [facility] [address] [id number] [place] [id number] Apr, [facility] [address] [id number] [place] [id number] Mar, [facility] [address] [id number] [place] [id number] Mar, [facility] [address] [facility] [id number] [place] [id number] February, [facility] [address] [id number] [place] [id number] Jan, [facility] [id number], [place] [address] Mar, [facility] [id number], [place] [address] Sep, [facility] [id number], [place] [address] Aug, [facility] [id number], [place] [address] Aug, [facility] [id number], [place] [address] Aug, [facility] [id number], [place] [address] Aug, [facility] [id number], [place] [address] Aug, [facility] [id number], [place] [address] Jul, [facility] [address] [id number], [place] [address] Apr, IMMUNIZATIONS No Known Immunizations SOCIAL HISTORY Never Assessed REASON FOR VISIT 1 month follow up on chronic pain management. he Hernandez PLAN OF CARE Activity Details Follow Up 4 Weeks Reason:back pain VITAL SIGNS Height 66 in 2017-08-31 Weight 219 lbs 2017-08-31 Temperature 98.3 degrees Fahrenheit 2017-08-31 Heart Rate 78 bpm 2017-08-31 Respiratory Rate 16 2017-08-31 BMI 35.34 kg/m2 2017-08-31 Blood pressure systolic 110 mmHg 2017-08-31 Blood pressure diastolic 72 mmHg 2017-08-31 MEDICATIONS Medication Instructions Dosage Frequency Start Date End Date Duration Status Omeprazole 20 mg Orally Once a day 1 capsules 24h Aug, Active Hydrocodone-Acetaminophen 5-325 MG Orally 3 times a day must last 1 m 1-2 tablet as needed Aug, Active Lidoderm 5 % Externally Once a day 1 patch ea left and right upper back x 12 hours then remove patches for 12 hours 24h Active Lidoderm 5 %(700 mg/patch) Externally Once a day 1 patch ea left and right upper back x 12 hours then remove patches for 12 hours 24h Active TENS Unit device Use as directed Mar, Active Voltaren 1 % Transdermal 4 times a day as directed 6h Mar, Active HydrOXYzine HCl 50 MG take 1 tablet by Oral route 1 time per day PRN itching Active Walker - as directed w seat Jun, Active Fluvoxamine Maleate 50 mg Orally Once a day 1 tablet at bedtime 24h May, 30 day(s) Active Clonazepam 0.5 MG Orally Twice a day prn .5-1 tablet Mar, Active Depakote 125 MG Orally Twice a day 1 tab am 2 tab hs 1-2 tab Not-Taking Gabapentin 600 MG Orally 3 times a day 2 am 1.5 midday 2 hs 8h Active Levothyroxine Sodium 25 MCG Orally Once a day 2 tablets 24h Active Baclofen 10 mg Orally Three times a day 1 tablet with food or milk 8h Active Phenergan 25 mg oral 3 times a day 1 tablet 8h May, Active RESULTS No Results PROCEDURES Procedure Date Ordered Result Body [facility] Aug [facility], 2017 VENIPUNCT, ROUTINE* Aug 31, 2017 INSTRUCTIONS MEDICATIONS ADMINISTERED No Known Medications [...]
--- OUTSIDE RECORDS SUMMARY | 2019-04-19 10:40 | XMS REPORT ---
Author Author HILDA WOLF [facility] Address [address] [place] [address] Care Team Providers Care Divorce Attorney Name Role Phone HILDA WOLF Unavailable PROBLEMS Type Condition ICD9-CM Code SES42-FH Code Onset Dates Condition Status SNOMED Code Problem Herniated nucleus pulposus M51.9 Active 13207234 Problem OCD (obsessive compulsive disorder) F42 Active 784091093 Problem Anxiety F41.9 Active 36020542 Problem Acquired hypothyroidism E03.9 Active 588976931 Problem Moderate episode of recurrent major depressive disorder F33.1 Active 595259998 Problem Cervicalgia M54.2 Active 90844261 Problem Polyneuropathy G62.9 Active 65711694 Problem Plantar fasciitis M72.2 Active 710655771 ALLERGIES No Information ENCOUNTERS Encounter Location Date Diagnosis [place] [id number] [place] [address] [id number] Jan, Herniated nucleus pulposus M51.9 ; Moderate episode of recurrent major depressive disorder F33.1 and Acquired hypothyroidism E03.[id number] [place] [address] [id number] Dec, Herniated nucleus pulposus M51.9 [place] [id number] [place] [address] [id number] Nov, Cervicalgia M54.2 and Herniated nucleus pulposus M51.9 [id number] [place] [address] [id number] Oct, Herniated nucleus pulposus M51.9 and OCD (obsessive compulsive disorder) F42 [id number] [place] [address] [id number] Oct, Herniated nucleus pulposus M51.9 [id number] [place] [address] [id number] Aug, Acquired hypothyroidism E03.9 [facility] [id number][place] [address] Aug, Herniated nucleus pulposus M51.9 and Acquired hypothyroidism E03.9 [facility] [address]005[address] [address] Aug, [facility] [id number] [place] [address] [id number] Jul, Herniated nucleus pulposus M51.9 ; OCD (obsessive compulsive disorder) F42 and Pain of right upper extremity M79.601 [facility] [id number] [place] [address] [id number] Jul, Anxiety F41.9 [facility] [id number] [place] [address] [id number] Jul, [facility] [id number] [place] [address] [id number] Jun, OCD (obsessive compulsive disorder) F42 ; Herniated nucleus pulposus M51.9 and Acute cystitis with hematuria N30.01 [facility] [id number] [place] [address] [id number] Jun, Anxiety F41.9 [facility] [id number] [place] [address] [id number] Jun, [facility] [id number] [place] [address] [id number] May, Acquired hypothyroidism E03.9 [facility] [id number] [place] [address] [id number] May, Polyneuropathy G62.9 ; OCD (obsessive compulsive disorder) F42 ; Screening for lipid disorders Z13.220 ; Herniated nucleus pulposus M51.9 ; Long-term use of high-risk medication Z79.899 and Major depressive disorder, recurrent, moderate F33.1 [facility] [address] [id number] [place] [id number] May, Dental examination Z01.20 [facility] [id number], [place] [id number] May, Herniated nucleus pulposus M51.9 [facility] [address] [id number][place] [id number] May, Herniated nucleus pulposus M51.9 and Anxiety F41.9 [facility] [id number] [place] [address] [id number] Apr, Herniated nucleus pulposus M51.9 and Cervicalgia M54.2 [facility] [id number] [place] [address] [id number] Apr, Moderate episode of recurrent major depressive disorder F33.1 [facility] [id number] [place] [address] [id number] Apr, Herniated nucleus pulposus M51.9 [place] [id number] [place] [address] [id number] Apr, Herniated nucleus pulposus M51.9 [place] [id number] [place] [address] [id number] Mar, Moderate episode of recurrent major depressive disorder F33.1 [facility] [id number] [place] [address] [id number] Mar, Anxiety F41.9 [facility] [address] [id number] [place] [address] [id number] Mar, [facility] [id number] [place] [address] [id number] Mar, Herniated nucleus pulposus M51.9 and Cervicalgia M54.2 [place] [id number] [place] [address] [id number] February, Acquired hypothyroidism E03.9 [facility] [id number] [place] [address] [id number] February, Polyneuropathy G62.9 ; Herniated nucleus pulposus M51.9 ; Cervicalgia M54.2 and Acquired hypothyroidism E03.9 [facility] [id number] [place] [address] [id number] Jan, [facility] [id number] [place] [address] [id number] Jan, Cervicalgia M54.2 and Moderate episode of recurrent major depressive disorder F33.1 [facility] [address] [id number], [place] [id number] Dec, Cervicalgia M54.2 and Herniated nucleus pulposus M51.9 [facility] [id number] [place] [address] [id number] Nov, Lymph nodes enlarged R59.9 [facility] [id number] [place] [address] [id number] Oct, Cervicalgia M54.2 [facility] [address] [id number] [address] Sep, Polyneuropathy G62.9 [facility] [id number] [place] [address] [id number] Sep, Cervicalgia M54.2 and Herniated nucleus pulposus M51.9 [facility] [id number] [place] [address] [id number] Aug, Lumbar radiculopathy M54.16 and Spinal stenosis at L4-L5 level M48.06 [facility] [id number] [place] [address] [id number] Aug, Cervicalgia M54.2 and Herniated nucleus pulposus M51.9 [facility] [id number] [place] [address] [id number] Jul, [facility] [id number] [place] [address] [id number] Jun, Cervicalgia M54.2 and Herniated nucleus pulposus M51.9 [place] [id number] [place] [address] [id number] May, Plantar fasciitis M72.2 [facility] [id number] [place] [address] [id number] May, [place] [id number] [place] [address] [id number] Apr, Screening for lipid disorders Z13.220 ; Long-term use of high-risk medication Z79.899 and Major depressive disorder, recurrent, moderate F33.1 [facility] [id number] [place] [address] [id number] Apr, [facility] [id number][place] [id number] Mar, Herniated nucleus pulposus M51.9 and Cervicalgia M54.2 [facility] [id number] [place] [address] [id number] Mar, Cervicalgia M54.2 and Herniated nucleus pulposus M51.9 [place] [id number] [place] [address] [id number] February, [facility] [id number] [place] [address] [id number] February, Cervicalgia M54.2 and Herniated nucleus pulposus M51.9 [place] [id number] [place] [address] [id number] Dec, Syncope, unspecified syncope type R55 [id number] [place] [address] [id number] Dec, Cervicalgia M54.2 ; Herniated nucleus pulposus M51.9 and Moderate episode of recurrent major depressive disorder F33.1 [facility] [id number] [place] [address] [id number] Dec, [place] [id number] [place] [address] [id number] Dec, Herniated nucleus pulposus M51.9 and Cervicalgia M54.2 [id number] [place] [address] [id number] Nov, [place] [id number] [place] [address] [id number] Nov, Herniated nucleus pulposus M51.9 and OCD (obsessive compulsive disorder) F42 [place] [id number] [place] [address] [id number] Sep, Displacement of intervertebral disc, site unspecified, without myelopathy 722.2 ; Cervicalgia 723.1 and Hypothyroidism, unspecified type E03.9 [facility] [id number] [place] [address] [id number] Sep, [place] [id number] [place] [address] [id number] Jun, Displacement of intervertebral disc, site unspecified, without myelopathy 722.2 and Cervicalgia 723.1 [facility] [id number], [place] [id number] Mar, Displacement of intervertebral disc, site unspecified, without myelopathy 722.2 and Shingles 053.9 [facility] [id number] [place] [address] [id number] February, Shingles 053.9 [facility] [id number] [place] [address] [id number] February, Displacement of intervertebral disc, site unspecified, without myelopathy 722.2 ; Tension headache 307.81 and Cervicalgia 723.1 [facility] [id number] [place] [address] [id number] February, [facility] [id number] [place] [address] [id number] February, [facility] [id number] [place] [address] [id number] February, [facility] [id number] [place] [address] Jan, [facility] [id number] [place] [address] Jan, [facility] [id number], [place] [id number] Jan, [facility] [id number] [place] [address] 14 Jan, 2015 [facility] [id number] [place] [address] Jan, [facility] [id number], [place] [id number] Dec, [facility] [id number] [place] [address] Dec, [facility] [id number], [place] [id number] Dec, [facility] [id number] [address] Dec, [facility] [address] [facility] [id number][place] [id number] Nov, [facility] [place] [facility] [address] [facility] [id number] [address] Nov, [facility] [address] [facility] [id number], [place] [id number] Oct, [facility] [place] [facility] [address] [facility] [id number] [place] [address] Oct, [facility] [address] [id number], [place] [id number] Oct, [facility] [place] [facility] [address] [facility] [id number] [place] [address] Oct, [facility] [address] [facility] [id number], [place] [id number] Oct, [facility] [address] [facility] [id number], [place] [id number] Oct, [facility] [place] [facility] [address] [facility] [id number] [place] [address] Oct, [facility] [place] [facility] [address] [facility] [id number] [place] [address] Oct, [facility] [address] [facility] [id number], [place] [id number] Oct, [facility] [place] [facility] [address] [facility] [id number] [address] Oct, [facility] [address] [facility] [id number], [place] [id number] Oct, [facility] [place] [facility] [address] [facility] [id number] [place] [address] Oct, [facility] [address] [facility] [id number], [place] [id number] Sep, [facility] [place] [facility] [address] [facility] [id number] [place] [address] Sep, [facility] [address] [id number] [place] [id number] Aug, [facility] [place] [facility] [address] [facility] [id number] [address] Aug, [facility] [place] [facility] [address] [facility] [id number] [place] [address] Aug, [facility] [address] [id number] [place] [id number] Aug, [facility] [address] [facility] [id number], [place] [id number] Aug, [facility] [place] [facility] [address] [facility] [id number] [place] [address] Aug, [facility] [address] [facility] [id number], [place] [id number] Jul, [facility] [place] [facility] [address] [facility] [id number] [address] Jul, [facility] [address] [facility] [id number], [place] [id number] Jul, [facility] [place] [facility] [address] [facility] [id number] [place] [address] Jul, [facility] [place] [facility] [address] [facility] [id number] [place] [address] Apr, [facility] [address] [facility] [id number], [place] [id number] Apr, [facility] [place] [facility] [address] [facility] [id number] [place] [address] Apr, [facility] [address] [facility] [id number], [place] [id number] Apr, [facility] [place] [facility] [address] [facility] [id number] [address] Apr, [facility] [address] [facility] [id number], [place] [id number] Mar, [facility] [place] [facility] [address] [facility] [id number] [address] Mar, [facility] [address] [id number] [place] [id number] Mar, [facility] [place] [facility] [address] [facility] [id number] [place] [address] Mar, [facility] [address] [facility] [id number] [place] [id number] February, [facility] [place] [facility] [address] [facility] [id number] [place] [address] February, [facility] [place] [facility] [address] [facility] [id number] [place] [address] February, [facility] [address] [facility] [id number] [place] [id number] February, [facility] [place] [facility] [address] [facility] [id number] [place] [address] February, [facility] [id number], [place] [id number] February, [facility] [place] [facility] [address] [place] [address] [id number] [address] February, [facility] [place] [facility] [address] [place] [id number] [address] Jan, [facility] [place] [facility] [address] [facility] [id number] [place] [address] Jan, [facility] [place] [facility] [address] [facility] [id number] [place] [address] Jan, [facility] [address] [facility] [id number], [place] 669673296 Jan, [facility] [place] [facility] [address] [facility] [id number] [place] [address] Jan, [facility] [address] [facility] [id number], [place] 979162833 Jan, [facility] [place] [facility] [address] [facility] [id number] [place] [address] Jan, [facility] [address] [facility] [id number], [place] 31868[address]74 Jan, [facility] [place] [facility] [address] [id number] [place] [address] Jan, [facility] [place] [facility] [address] [id number] [place] [address] Jan, [facility] [place] [facility] [address] [facility] [id number] [place] [address] Jan, [facility] [place] [facility] [address] [facility] [id number] [address] Jan, [facility] [address] [id number] [place] [id number] Jan, [facility] [address] [id number] [place] [id number] Jan, [facility] [place] [facility] [address] [facility] [id number] [address] Jan, [facility] [address] [facility] [id number], [place] 690381168 Jan, [facility] [place] [facility] [address] [facility] [id number] [address] Jan, [facility] [address] [facility] [id number] [place] [id number] Jan, [facility] [place] [facility] [address] [facility] [id number] [address] Jan, [facility] [address] [facility] [id number], [place] 563473605 Dec, [facility] [place] [facility] [address] [facility] [id number] [place] [address] Dec, [facility] [address] [id number], [place] 420022115 Dec, [facility] [place] [facility] [address] [facility] [id number] [place] [address] Dec, [facility] [address] [facility] [id number] [place] [id number] Dec, [facility] [place] [facility] [address] [facility] [id number] [place] [address] Dec, [facility] [address] [facility] [id number] [place] [id number] Dec, [facility] [place] [facility] [address] [facility] [id number] [place] [address] Dec, [facility] [address] [facility] [id number] [place] [id number] Nov, [facility] [place] [facility] [address] [facility] [id number] [address] Nov, [facility] [address] [facility] [id number] [place] [id number] Nov, [facility] [place] [facility] [address] [facility] [id number] [address] Nov, [facility] [place] [facility] [address]00565100[place] [address] Nov, [facility] [place] [facility] [address] [id number] [address] Nov, [facility] [place] [facility] [address] [facility] [id number] [address] Nov, [facility] [place] [facility] [address] [facility] [id number] [address] Nov, [facility] [address] [id number], [place] 383940492 Oct, [facility] [place] [facility] [address] [facility] [id number] [address] Oct, [facility] [place] [facility] [address] [facility] [id number] [address] Oct, [facility] [address] [facility] [id number], [place] 390126184 Oct, [facility] [place] [facility] [address] [facility] [id number] [address] Oct, [facility] [address] [facility] [id number], [place] [id number] Oct, [facility] [address] [facility] [id number] [place] [address] Oct, [facility] [address] [id number] [place] [id number] Aug, [facility] [address] [facility] [id number] [address] Aug, [facility] [address] [id number] [place] [id number] Jul, [facility] [address] [facility] [id number] [address] Mar, [facility] [address] [id number] [place] [id number] Mar, [facility] [address] [facility] [id number] [place] [address] Mar, [facility] [address] [id number] [place] [id number] Jan, [facility] [address] [id number] [place] [id number] Sep, [facility] [address] [facility] [id number] [address] Sep, [facility] [address] [id number] [place] 9472005[address] May, [facility] [address] [id number] [place] [id number] Apr, [facility] [address] [id number] [place] [id number] Mar, [facility] [address] [id number] [place] [id number] Mar, [facility] [address] [id number] [place] [id number] February, [facility] [address] [id number] [place] [id number] Jan[place] [facility] [address] [facility] [id number] [address] Mar, [facility] [address] [id number] [address] Sep, [facility] [id number] [address] Aug, [facility] [id number] [address] Aug, [facility] [id number] [place] [id number] Aug, [facility] [id number] [address] Aug, [facility] [id number] [address] Aug, [facility] [id number] [address] Jul, [facility] [id number] [address] Apr, IMMUNIZATIONS No Known Immunizations SOCIAL HISTORY Never Assessed REASON FOR VISIT phone call PLAN OF CARE VITAL SIGNS MEDICATIONS No [...]
--- OUTSIDE RECORDS SUMMARY | 2019-04-19 10:40 | XMS REPORT ---
Author Author [facility] Address [address] [place] [address] Care Team Providers Care Shipping Lead Person Name Role Phone HILDA WOLF Unavailable PROBLEMS Type Condition ICD9-CM Code [id number] Code Onset Dates Condition Status SNOMED Code Problem Tension headache 307.81 Active 544946262 Problem Herniated nucleus pulposus M51.9 Active 22937455 Problem OCD (obsessive compulsive disorder) F42 Active 256329628 Problem Allergy, unspecified not elsewhere classified 995.3 Active 572174056 Problem Lumbar sprain and strain 847.2 Active 857583201 Problem Generalized hyperhidrosis 780.8 Active 569190689 Problem Unspecified peripheral vertigo 386.10 Active 02610574 Problem Anxiety F41.9 Active 19335401 Problem Acquired hypothyroidism E03.9 Active 242483845 Problem Moderate episode of recurrent major depressive disorder F33.1 Active 411251452 Problem Cervicalgia M54.2 Active 71030087 Problem Polyneuropathy G62.9 Active 25118809 Problem Plantar fasciitis M72.2 Active 845030310 ALLERGIES Substance Reaction Event Type Date Status Nortriptyline HCl headache, night fu Drug Allergy Dec, Active Lamictal hives Drug Allergy Dec, Active Clindamycin HCl hives Drug Allergy Dec, Active Latex hives Non Drug Allergy Dec, Active SOCIAL HISTORY Never Assessed PLAN OF CARE Activity Details Follow Up 4 Weeks Reason:neck pain VITAL SIGNS Height 66 in 2016-12-09 Weight 202.8 lbs 2016-12-09 Temperature 98.6 degrees Fahrenheit 2016-12-09 Heart Rate 75 bpm 2016-12-09 Respiratory Rate 16 2016-12-09 BMI 32.73 kg/m2 2016-12-09 Blood pressure systolic 118 mmHg 2016-12-09 Blood pressure diastolic 78 mmHg 2016-12-09 MEDICATIONS Medication Instructions Dosage Frequency Start Date End Date Duration Status Phenergan 25 MG oral 3 times a day 1 tablet 8h May, Active TENS Unit device Use as directed Mar, Active Hydrocodone-Acetaminophen 5-325 MG Orally 3 times a day must last 1 mon 1 - 2 tablet as needed Jun, Active Lidoderm 5 %(700 mg/patch) Externally Once a day 1 patch ea left and right upper back x 12 hours then remove patches for 12 hours 24h Active Ibuprofen 800 MG Orally Three times a day take 1 tablet 8h Active Omeprazole 20 mg Orally Once a day 1 capsules 24h Aug, Active Paxil 40 MG 1 tablet in the morning Active HydrOXYzine HCl 50 MG take 1 tablet by Oral route 1 time per day PRN itching Active Voltaren 1 % Transdermal 4 times a day as directed 6h Mar, Active Cyclobenzaprine HCl 10 mg Orally Three times a day prn 1 tablet Mar, Active levothyroxine 25 mcg by oral route Once a day 1 tablet 24h Active Depakote 125 MG Orally Twice a day 1 tab am 2 tab hs 1-2 tab Active Gabapentin 600 MG Orally 3 times a day 1.5 am midday 2 tab hx 8h Active RESULTS No Results PROCEDURES No Known procedures IMMUNIZATIONS No Known Immunizations MEDICAL (GENERAL) HISTORY Type Description Date Medical History cardiovascular disease Medical History uterine fibroids Medical History shingles Medical History TIA -- 2009 Medical History thyroid disorder Medical History seizures Medical History depression Medical History anxiety Medical History chronic back pain Surgical History tonsillectomy age 14 Surgical History appendectomy 1999 Surgical History cholecystectomy 2007 Surgical History Blood transfusion with hysterectomy 2010 Surgical History dilatation and curettage x 2 1998, 2003 Surgical History hysterectomy, total with bilateral salpingo-oophorectomy (BSO) 2010 Surgical History laminectomy L4-L5 03/2015 Surgical History disc removed between C6-C7-had fusion 01/18 Hospitalization History childbirth, surgeries
--- OUTSIDE RECORDS SUMMARY | 2019-04-19 10:40 | XMS REPORT ---
Author Author HILDA WOLF [facility] [employer] Address Unknown Phone Unavailable Care Team Providers Care Engineering Agent Name Role Phone HILDA WOLF CP Unavailable [...] unspecified not elsewhere classified 995.3 Active Assessment Plantar fasciitis M72.2 Active Problem Moderate episode of recurrent major depressive disorder F33.1 Active Problem Cervicalgia M54.2 Active Problem Plantar fasciitis M72.2 Active Problem Lumbar sprain and strain 847.2 Active Problem Generalized hyperhidrosis 780.8 Active Problem Herniated nucleus pulposus M51.9 Active Problem OCD (obsessive compulsive disorder) F42 Active Medications Medication Code System Code Instructions Start Date End Date Status Dosage Ibuprofen [facility] [address]-87 800 MG Three times a day take [address] [facility] [address]-58 800 MG Orally 3 times a day 1 capsule TENS Unit ND 0 device March 31, 2016 Use as directed Cyclobenzaprine HCl [facility] [address]-73 10 mg Orally Three times a day prn March 11, [address] [facility] [address]-99 1 % Transdermal 4 times a day March 31, 2016 as directed Paxil [facility] [address]-33 40 MG Orally 1 tablet in the morning Hydrocodone-Acetaminophen [facility] [address]-95 5-325 MG Orally 3 times a day must last 1 wedJun 05, 2015 1 -2 tablet as needed HydrOXYzine HCl [facility] [address]-82 50 MG Orally take 1 tablet by Oral route 1 time per day PRN itching Depakote [facility] [address]-96 125 MG Orally Twice a day 1 tab am 2 tab hs 1-2 tab levothyroxine NDC 0 25 mcg 1 tablet by Oral route 1 time per day Phenergan NDC [address]-23 25 MG oral 3 times a day May 07, 2016 1 tablet Procedures Procedure Coding System Code Date Office Visit, Est Pt., Level 3 CPT-4 85944 May 14, 2016 Vital Signs Date/Time: May 14, 2016 Cardiac Monitoring Heart Rate 80 bpm Weight 205 lbs Height 66 in BMI 33.08 Index Blood Pressure Diastolic 68 mmHg Blood Pressure Systolic 110 mmHg Results No Known Results Summary Purpose [employer] Submission
--- OUTSIDE RECORDS SUMMARY | 2019-04-19 10:40 | XMS REPORT ---
Author Author HILDA WOLF [facility] Address [address] [place] [address] Care Team Providers Care [employer] Associate Name Role Phone HILDA WOLF Unavailable PROBLEMS Type Condition ICD9-CM Code FVF50-JJ Code Onset Dates Condition Status SNOMED Code Problem Herniated nucleus pulposus M51.9 Active 05774728 Problem OCD (obsessive compulsive disorder) F42 Active 041087862 Problem Anxiety F41.9 Active 13680817 Problem Acquired hypothyroidism E03.9 Active 422248505 Problem Moderate episode of recurrent major depressive disorder F33.1 Active 225674107 Problem Cervicalgia M54.2 Active 10173003 Problem Polyneuropathy G62.9 Active 00864583 Problem Plantar fasciitis M72.2 Active 839009604 ALLERGIES No Information ENCOUNTERS Encounter Location Date Diagnosis [address] [id number] [place] [address] [id number] Jan, Herniated nucleus pulposus M51.9 ; Moderate episode of recurrent major depressive disorder F33.1 and Acquired hypothyroidism E03.[address] [place] [address] [id number] Dec, Herniated nucleus pulposus M51.9 [place] [place] [id number] [place] [address] [id number] Nov, Cervicalgia M54.2 and Herniated nucleus pulposus M51.[address] [place] [address] [id number] Oct, Herniated nucleus pulposus M51.9 and OCD (obsessive compulsive disorder) F42 [address] [place] [address] [id number] Oct, Herniated nucleus pulposus M51.9 [address] [place] [address] [id number] Aug, Acquired hypothyroidism E03.9 [facility] [id number] [id number] Aug, Herniated nucleus pulposus M51.9 and Acquired hypothyroidism E03.9 [facility] [address]005[address] [address] Aug, [facility] [id number] [place] [address] [id number] Jul, Herniated nucleus pulposus M51.9 ; OCD (obsessive compulsive disorder) F42 and Pain of right upper extremity M79.601 [facility] [id number] [place] [address] [id number] Jul, Anxiety F41.9 [facility] [id number] [place] [address] [phone] Jul, [facility] [id number] [place] [address] [id number] Jun, OCD (obsessive compulsive disorder) F42 ; Herniated nucleus pulposus M51.9 and Acute cystitis with hematuria N30.01 [facility] [id number] [place] [address] [id number] Jun, Anxiety F41.9 [facility] [id number] [place] [address] [id number] Jun, [facility] [id number] [place] [address] [id number] May, Acquired hypothyroidism E03.9 [facility] [id number] [place] [address] [id number] May, Polyneuropathy G62.9 ; OCD (obsessive compulsive disorder) F42 ; Herniated nucleus pulposus M51.9 ; Screening for lipid disorders Z13.220 ; Long-term use of high- risk medication Z79.899 and Major depressive disorder, recurrent, moderate F33.1 [facility] [address] [id number] [id number] May, Dental examination Z01.20 [facility] [id number], [place] [id number] May, Herniated nucleus pulposus M51.9 [facility] [address] [id number], [place] [id number] May, Herniated nucleus pulposus M51.9 and Anxiety F41.9 [facility] [id number] [place] [address] [id number] Apr, Herniated nucleus pulposus M51.9 and Cervicalgia M54.2 [facility] [address] [id number] [place] [address] [id number] Apr, Moderate episode of recurrent major depressive disorder F33.1 [facility] [id number] [place] [address] [id number] Apr, Herniated nucleus pulposus M51.9 [place] [id number] [place] [address] [id number] Apr, Herniated nucleus pulposus M51.9 [place] [id number] [place] [address] [id number] Mar, Moderate episode of recurrent major depressive disorder F33.1 [facility] [id number] [place] [address] [id number] Mar, Anxiety F41.9 [facility] [address] [id number] [place] [address] [id number] Mar, [facility] [id number] [place] [address] [id number] Mar, Herniated nucleus pulposus M51.9 and Cervicalgia M54.2 [address] [place] [id number] [place] [address] [id number] February, Acquired hypothyroidism E03.9 [facility] [id number] [place] [address] [phone] February, Polyneuropathy G62.9 ; Herniated nucleus pulposus M51.9 ; Cervicalgia M54.2 and Acquired hypothyroidism E03.9 [facility] [id number] [place] [address] [id number] Jan, [facility] [id number] [place] [address] [id number] Jan, Cervicalgia M54.2 and Moderate episode of recurrent major depressive disorder F33.1 [facility] [address] [id number], [place] [id number] Dec, Cervicalgia M54.2 and Herniated nucleus pulposus M51.9 [facility] [id number] [place] [address] [id number] Nov, Lymph nodes enlarged R59.9 [facility] [id number] [place] [address] [id number] Oct, Cervicalgia M54.2 [facility] [address] [id number], [place] [address] Sep, Polyneuropathy G62.9 [facility] [id number] [place] [address] [id number] Sep, Cervicalgia M54.2 and Herniated nucleus pulposus M51.9 [facility] [id number] [place] [address] [id number] Aug, Lumbar radiculopathy M54.16 and Spinal stenosis at L4-L5 level M48.06 [facility] [id number] [place] [address] [id number] Aug, Cervicalgia M54.2 and Herniated nucleus pulposus M51.9 [facility] [id number] [place] [address] [id number] Jul, [facility] [id number] [place] [address] [id number] Jun, Cervicalgia M54.2 and Herniated nucleus pulposus M51.9 [place] [id number] [place] [address] [id number] May, Plantar fasciitis M72.2 [facility] [id number] [place] [address] [id number] May, [place] [id number] [place] [address] [id number] Apr, Screening for lipid disorders Z13.220 ; Long-term use of high-risk medication Z79.899 and Major depressive disorder, recurrent, moderate F33.1 [facility] [id number] [place] [address] [id number] Apr, [facility] [id number], [place] [id number] Mar, Herniated nucleus pulposus M51.9 and Cervicalgia M54.2 [facility] [id number] [place] [address] [id number] Mar, Cervicalgia M54.2 and Herniated nucleus pulposus M51.9 [place] [place] [id number] [place] [address] [id number] February, [facility] [id number] [place] [address] [id number] February, Cervicalgia M54.2 and Herniated nucleus pulposus M51.9 [place] [place] [id number] [place] [address] [id number] Dec, Syncope, unspecified syncope type R55 [address] [place] [address] [id number] Dec, Cervicalgia M54.2 ; Herniated nucleus pulposus M51.9 and Moderate episode of recurrent major depressive disorder F33.1 [facility] [address] [place] [address] [id number] Dec, [place] [id number] [place] [address] [id number] Dec, Herniated nucleus pulposus M51.9 and Cervicalgia M54.2 [address] [place] [address] [id number] Nov, [place] [id number] [place] [address] [id number] Nov, Herniated nucleus pulposus M51.9 and OCD (obsessive compulsive disorder) F42 [address] [place] [id number] [place] [address] [id number] Sep, Displacement of intervertebral disc, site unspecified, without myelopathy 722.2 ; Cervicalgia 723.1 and Hypothyroidism, unspecified type E03.9 [facility] [address] [place] [address] [phone] Sep, [place] [id number] [place] [address] [id number] Jun, Displacement of intervertebral disc, site unspecified, without myelopathy 722.2 and Cervicalgia 723.1 [facility] [id number], [place] [id number] Mar, Displacement of intervertebral disc, site unspecified, without myelopathy 722.2 and Shingles 053.9 [facility] [id number] [place] [address] [id number] February, Shingles 053.9 [facility] [id number] [place] [address] [id number] February, Displacement of intervertebral disc, site unspecified, without myelopathy 722.2 ; Tension headache 307.81 and Cervicalgia 723.1 [facility] [id number] [place] [address] [id number] February, [facility] [id number] [place] [address] [id number] February, [facility] [id number] [place] [address] [id number] February, [facility] [id number] [place] [phone] Jan, [facility] [id number] [place] [phone] Jan, [facility] [id number], [place] [id number] Jan, [facility] [id number] [place] [phone] 14 Jan, 2015 [facility] [id number] [place] [phone] Jan, [facility] [id number], [place] [id number] Dec, [facility] [id number] [place] [address] Dec, [facility] [id number], [place] [id number] Dec, [facility] [place] [address]00565[address], [place] [address] Dec, [facility] [address] [facility] [id number][place] [id number] Nov, [facility] [place] [facility] [address] [facility] [id number], [place] [address] Nov, [facility] [address] [facility] [id number], [place] [id number] Oct, [facility] [place] [facility] [address] [facility] [id number], [place] [address] Oct, [facility] [address] [id number] [id number] Oct, [facility] [place] [facility] [address] [facility] [id number], [place] [address] Oct, [facility] [address] [facility] [id number], [place] [id number] Oct, [facility] [address] [facility] [id number], [place] [id number] Oct, [facility] [place] [facility] [address] [facility] [id number], [place] [address] Oct, [facility] [place] [facility] [address] [facility] [id number], [place] [address] Oct, [facility] [address] [facility] [id number], [place] [id number] Oct, [facility] [place] [facility] [address] [facility] [id number], [place] [address] Oct, [facility] [address] [facility] [id number], [place] [id number] Oct, [facility] [place] [facility] [address] [facility] [id number], [place] [address] Oct, [facility] [address] [facility] [id number], [place] [id number] Sep, [facility] [place] [facility] [address] [facility] [id number], [place] [address] Sep, [facility] [address] [id number] [place] [id number] Aug, [facility] [place] [facility] [address] [facility] [id number], [place] [address] Aug, [facility] [place] [facility] [address] [facility] [id number] [place] [address] Aug, [facility] [address] [id number] [place] [id number] Aug, [facility] [address] [facility] [id number], [place] [id number] Aug, [facility] [place] [facility] [address] [facility] [id number] [place] [address] Aug, [facility] [address] [facility] [id number], [place] [id number] Jul, [facility] [place] [facility] [address] [facility] [id number], [place] [address] Jul, [facility] [address] [facility] [id number], [place] [id number] Jul, [facility] [place] [facility] [address] [facility] [id number], [place] [address] Jul, [facility] [place] [facility] [address] [facility] [id number], [place] [address] Apr, [facility] [address] [facility] [id number], [place] [id number] Apr, [facility] [place] [facility] [address] [facility] [id number], [place] [address] Apr, [facility] [address] [facility] [id number], [place] [id number] Apr, [facility] [place] [facility] [address] [facility] [id number], [place] [address] Apr, [facility] [address] [facility] [id number], [place] [id number] Mar, [facility] [place] [facility] [address] [facility] [id number], [place] [address] Mar, [facility] [address] [id number] [place] [id number] Mar, [facility] [place] [facility] [address] [facility] [id number] [place] [address] Mar, [facility] [address] [facility] [id number] [place] 809[address] February, [facility] [place] [facility] [address] [facility] [id number] [place] [address] February, [facility] [place] [facility] [address] [facility] [id number] [place] [address] February, [facility] [address] [facility] [id number] [place] [id number] February, [facility] [place] [facility] [address] [facility] [id number] [place] [address] February, [facility] [id number], [place] [id number] February, [facility] [place] [facility] [id number] [place] [address] February, [facility] [place] [facility] [address] [id number] [place] [address] Jan, [facility] [place] [facility] [address] [facility] [id number] [place] [address] Jan, [facility] [place] [facility] [address] [facility] [id number] [place] [address] Jan, [facility] [address] [facility] [id number], [place] 635465842 Jan, [facility] [place] [facility] [address] [facility] [id number] [place] [address] Jan, [facility] [address] [facility] [id number], [place] [id number] Jan, [facility] [place] [facility] [address] [facility] [id number] [place] [address] Jan, [facility] [address] [facility] [id number], [place] [id number] Jan, [facility] [place] [facility] [address] [id number] [place] [address] Jan, [facility] [place] [facility] [address] [id number] [place] [address] Jan, [facility] [place] [facility] [address] [facility] [id number] [place] [address] Jan, [facility] [place] [facility] [address] [facility] [id number], [place] [address] Jan, [facility] [address] [id number] [place] [id number] Jan, [facility] [address] [id number] [place] [address]59[address] Jan, [facility] [place] [facility] [address] [facility] [id number], [place] [address] Jan, [facility] [address] [facility] [id number], [place] 011078431 Jan, [facility] [place] [facility] [address] [facility] [id number], [place] [address] Jan, [facility] [address] [facility] [id number] [place] 132[address] Jan, [facility] [place] [facility] [address] [facility] [id number], [place] [address] Jan, [facility] [address] [facility] [id number], [place] 710625518 Dec, [facility] [place] [facility] [address] [facility] [id number], [place] [address] Dec, [facility] [address] [id number], [place] [id number] Dec, [facility] [place] [facility] [address] [facility] [id number] [place] [address] Dec, [facility] [address] [facility] [id number] [place] [id number] Dec, [facility] [place] [facility] [address] [facility] [id number], [place] [address] Dec, [facility] [address] [facility] [id number] [place] [id number] Dec, [facility] [place] [facility] [address] [facility] [id number], [place] [address] Dec, [facility] [address] [facility] [id number] [place] 0205[address] Nov, [facility] [place] [facility] [address] [facility] [id number], [place] [address] Nov, [facility] [address] [facility] [id number] [place] [id number] Nov, [facility] [place] [facility] [address] [facility] [id number], [place] [address] Nov, [facility] [place] [facility] [address]00565100[place] [address] Nov, [facility] [place] [facility] [address] [id number], [place] [address] Nov, [facility] [place] [facility] [address] [facility] [id number], [place] [address] Nov, [facility] [place] [facility] [address] [facility] [id number], [place] [address] Nov, [facility] [address] [id number], [place] [id number] Oct, [facility] [place] [facility] [address] [facility] [id number], [place] [address] Oct, [facility] [place] [facility] [address] [facility] [id number], [place] [address] Oct, [facility] [address] [facility] [id number], [place] [id number] Oct, [facility] [place] [facility] [address] [facility] [id number], [place] [address] Oct, [facility] [address] [facility] [id number], [place] [id number] Oct, [facility] [address] [facility] [id number] [place] [address] Oct, [facility] [address] [id number] [place] [address] Aug, [facility] [address] [facility] [id number], [place] [address] Aug, [facility] [address] [id number] [place] [address] Jul, [facility] [address] [facility] [id number], [place] [address] Mar, [facility] [address] [id number] [place] [id number] Mar, [facility] [address] [facility] [id number], [place] [address] Mar, [facility] [address] [id number] [place] [address] Jan, [facility] [address] [id number] [place] 512[address]47[address] Sep, [facility] [address] [facility] [id number], [place] [address] Sep, [facility] [address] [id number] [place] [id number] May, [facility] [address] [id number] [place] [address]896[address] Apr, [facility] [address] [id number] [place] [id number] Mar, [facility] [address] [id number] [place] 69[address] Mar, [facility] [address] [id number] [place] [id number] February, [facility] [address] [id number] [place] [id number] Jan, [facility] [address] [facility] [id number] [address] Mar, [facility] [address] [id number] [address] Sep, [facility] [id number] [address] Aug, [facility] [id number] [address] Aug, [facility] [id number] [place] [address] Aug, [facility] [id number] [address] Aug, [facility] [id number] [address] Aug, [facility] [id number] [address] Jul, [facility] [id number] [address] Apr, IMMUNIZATIONS No Known Immunizations SOCIAL HISTORY [...]
--- OUTSIDE RECORDS SUMMARY | 2019-04-19 10:40 | XMS REPORT ---
Author [facility] Address [address] [place] [address] Care Team Providers Care Funeral Professional Name Role Phone HILDA WOLF Unavailable PROBLEMS Type Condition ICD9-CM Code BTO75-VR Code Onset Dates Condition Status SNOMED Code Problem Tension headache 307.81 Active 509439325 Problem Herniated nucleus pulposus M51.9 Active 05933499 Problem OCD (obsessive compulsive disorder) F42 Active 157046655 Problem Allergy, unspecified not elsewhere classified 995.3 Active 997192742 Problem Lumbar sprain and strain 847.2 Active 119093492 Problem Generalized hyperhidrosis 780.8 Active 538260329 Problem Unspecified peripheral vertigo 386.10 Active 93759769 Problem Anxiety F41.9 Active 54102101 Problem Acquired hypothyroidism E03.9 Active 294658665 Problem Moderate episode of recurrent major depressive disorder F33.1 Active 288634803 Problem Cervicalgia M54.2 Active 18650369 Problem Polyneuropathy G62.9 Active 03108175 Problem Plantar fasciitis M72.2 Active 155997941 ALLERGIES Substance Reaction Event Type Date Status Nortriptyline HCl headache, night fu Drug Allergy Oct, Active Lamictal hives Drug Allergy Oct, Active Clindamycin HCl hives Drug Allergy Oct, Active Latex hives Non Drug Allergy Oct, Active SOCIAL HISTORY No smoking Hx information available PLAN OF CARE Activity Details Follow Up prn Reason: VITAL SIGNS Height 66 in 2016-10-19 Weight 199.2 lbs 2016-10-19 Temperature 97.9 degrees Fahrenheit 2016-10-19 Heart Rate 68 bpm 2016-10-19 Respiratory Rate 16 2016-10-19 BMI 32.15 kg/m2 2016-10-19 Blood pressure systolic 128 mmHg 2016-10-19 Blood pressure diastolic 80 mmHg 2016-10-19 MEDICATIONS Medication Instructions Dosage Frequency Start Date End Date Duration Status Hydrocodone-Acetaminophen 5-325 MG Orally 3 times a day must last Wed - 2 tablet as needed Jun, Active Depakote 125 MG Orally Twice a day 1 tab am 2 tab hs 1-2 tab Active Paxil 40 MG 1 tablet in the morning Active Omeprazole 20 mg Orally Once a day 1 capsules 24h Aug, Active Lidoderm 5 %(700 mg/patch) Externally Once a day 1 patch ea left and right upper back x 12 hours then remove patches for 12 hours 24h Active Ibuprofen 800 MG Orally Three times a day take 1 tablet 8h Active Cyclobenzaprine HCl 10 mg Orally Three times a day prn 1 tablet Mar, Active levothyroxine 25 mcg by oral route Once a day 1 tablet 24h Active Voltaren 1 % Transdermal 4 times a day as directed 6h Mar, Active Phenergan 25 MG oral 3 times a day 1 tablet 8h May, Active HydrOXYzine HCl 50 MG take 1 tablet by Oral route 1 time per day PRN itching Active Gabapentin 600 MG Orally 3 times a day 1.5 am midday 2 tab hx 8h Active TENS Unit device Use as directed Mar, Active RESULTS No Results PROCEDURES Procedure Date Ordered Related Diagnosis Body Site Office Visit, Est Pt., Level 3 Oct 19, 2016 IMMUNIZATIONS No Known Immunizations
--- OUTSIDE RECORDS SUMMARY | 2019-04-19 10:43 | XMS REPORT | Continuity of Care Document ---
Author Organization Unknown Address Unknown Allergies Active Description Code Type Severity Reaction Onset Reported/Identified Relationship to Patient Clinical Status Yes latex OA N/A N/A 11/08/2008 Yes latex OA 11/08/2008 Yes latex [id number] Drug Allergy Unknown N/A 03/05/2011 Yes Lamictal Drug Allergy N/A N/A 2014 Yes clindamycin HCl 300 mg capsule Drug Allergy N/A N/A 08/02/2014 Medications There is no data. Problems Date Dx Coded Attending Type Code Diagnosis Diagnosed By 04/05/2008 575.9 GALLBLADDER DISEASE UNSPEC 04/05/2008 575.9 GALLBLADDER DISEASE UNSPEC 04/05/2008 575.9 GALLBLADDER DISEASE UNSPEC 04/05/2008 TOMPKINS DO, RACHEL K 575.9 GALLBLADDER DISEASE UNSPEC 04/05/2008 TOMPKINS DO, RACHEL K 575.9 GALLBLADDER DISEASE UNSPEC 04/05/2008 BECK OWENS APRN 575.9 GALLBLADDER DISEASE UNSPEC 04/05/2008 TOMPKINS DO, RACHEL K 575.9 GALLBLADDER DISEASE UNSPEC 04/05/2008 TOMPKINS DO, RACHEL K 575.9 GALLBLADDER DISEASE UNSPEC 04/05/2008 TOMPKINS DO, RACHEL K 575.9 GALLBLADDER DISEASE UNSPEC 04/05/2008 TOMPKINS DO, RACHEL K 575.9 GALLBLADDER DISEASE UNSPEC 04/05/2008 TOMPKINS DO, RACHEL K 575.9 GALLBLADDER DISEASE UNSPEC 04/05/2008 TOMPKINS DO, RACHEL K 575.9 GALLBLADDER DISEASE UNSPEC 04/05/2008 TOMPKINS DO, RACHEL K 575.9 GALLBLADDER DISEASE UNSPEC 04/05/2008 TOMPKINS DO, RACHEL K 575.9 GALLBLADDER DISEASE UNSPEC 04/05/2008 TOMPKINS DO, RACHEL K 575.9 GALLBLADDER DISEASE UNSPEC 04/05/2008 TOMPKINS DO, RACHEL K 575.9 GALLBLADDER DISEASE UNSPEC 04/05/2008 BECK OWENS APRN 575.9 GALLBLADDER DISEASE UNSPEC 04/05/2008 HILDA WOLF APRN 575.9 GALLBLADDER DISEASE UNSPEC 04/05/2008 PATRICIO BEVERLY, VIVIANA 575.9 GALLBLADDER DISEASE UNSPEC 04/05/2008 WHITE DDS, ARNOLD Byrd 575.9 GALLBLADDER DISEASE UNSPEC 04/05/2008 TOMPKINS DO, RACHEL K 575.9 GALLBLADDER DISEASE UNSPEC 04/05/2008 TOMPKINS DO, RACHEL K 575.9 GALLBLADDER DISEASE UNSPEC 04/05/2008 HILDA WOLF APRN 575.9 GALLBLADDER DISEASE UNSPEC 04/05/2008 TOMPKINS DO, RACHEL K 575.9 GALLBLADDER DISEASE UNSPEC 04/05/2008 TOMPKINS DO, RACHEL K 575.9 GALLBLADDER DISEASE UNSPEC 05/02/2008 787.02 NAUSEA ALONE 05/02/2008 787.02 NAUSEA ALONE 05/02/2008 787.02 NAUSEA ALONE 05/02/2008 TOMPKINS DO, RACHEL K 787.02 NAUSEA ALONE 05/02/2008 TOMPKINS DO, RACHEL K 787.02 NAUSEA ALONE 05/02/2008 BECK OWENS APRN 787.02 NAUSEA ALONE 05/02/2008 TOMPKINS DO, RACHEL K 787.02 NAUSEA ALONE 05/02/2008 TOMPKINS DO, RACHEL K 787.02 NAUSEA ALONE 05/02/2008 TOMPKINS DO, RACHEL K 787.02 NAUSEA ALONE 05/02/2008 TOMPKINS DO, RACHEL K 787.02 NAUSEA ALONE 05/02/2008 TOMPKINS DO, RACHEL K 787.02 NAUSEA ALONE 05/02/2008 TOMPKINS DO, RACHEL K 787.02 NAUSEA ALONE 05/02/2008 TOMPKINS DO, RACHEL K 787.02 NAUSEA ALONE 05/02/2008 TOMPKINS DO, RACHEL K 787.02 NAUSEA ALONE 05/02/2008 TOMPKINS DO, RACHEL K 787.02 NAUSEA ALONE 05/02/2008 TOMPKINS DO, RACHEL K 787.02 NAUSEA ALONE 05/02/2008 BECK OWENS APRN 787.02 NAUSEA ALONE 05/02/2008 HILDA WOLF APRN 787.02 NAUSEA ALONE 05/02/2008 PATRICIO PATELSVIVIANA 787.02 NAUSEA ALONE 05/02/2008 WHITE DDS, ARNOLD Byrd 787.02 NAUSEA ALONE 05/02/2008 TOMPKINS DO RACHEL K 787.02 NAUSEA ALONE 05/02/2008 TOMPKINS DO, RACHEL K 787.02 NAUSEA ALONE 05/02/2008 HILDA WOLF APRN Dustin 787.02 NAUSEA ALONE 05/02/2008 TOMPKINS DO, RACHEL K 787.02 NAUSEA ALONE 05/02/2008 TOMPKINS DO, RACHEL K 787.02 NAUSEA ALONE 07/06/2008 300.00 ANXIETY 07/06/2008 305.1 TOBACCO ABUSE 07/06/2008 300.00 ANXIETY 07/06/2008 305.1 TOBACCO ABUSE 07/06/2008 300.00 ANXIETY 07/06/2008 305.1 TOBACCO ABUSE 07/06/2008 TOMPKINS DO, RACHEL K 300.00 ANXIETY 07/06/2008 TOMPKINS DO, RACHEL K 305.1 TOBACCO ABUSE 07/06/2008 TOMPKINS DO, RACHEL K 300.00 ANXIETY 07/06/2008 TOMPKINS DO, RACHEL K 305.1 TOBACCO ABUSE 07/06/2008 [facility] 300.00 ANXIETY 07/06/2008 [facility] SHANON BECK E 305.1 TOBACCO ABUSE 07/06/2008 TOMPKINS DO, RACHEL K 300.00 ANXIETY 07/06/2008 TOMPKINS DO, RACHEL K 305.1 TOBACCO ABUSE 07/06/2008 TOMPKINS DO, RACHEL K 300.00 ANXIETY 07/06/2008 TOMPKINS DO, RACHEL K 305.1 TOBACCO ABUSE 07/06/2008 TOMPKINS DO, RACHEL K 300.00 ANXIETY 07/06/2008 TOMPKINS DO, RACHEL K 305.1 TOBACCO ABUSE 07/06/2008 TOMPKINS DO, RACHEL K 300.00 ANXIETY 07/06/2008 TOMPKINS DO, RACHEL K 305.1 TOBACCO ABUSE 07/06/2008 TOMPKINS DO, RACHEL K 300.00 ANXIETY 07/06/2008 TOMPKINS DO, RACHEL K 305.1 TOBACCO ABUSE 07/06/2008 TOMPKINS DO, RACHEL K 300.00 ANXIETY 07/06/2008 TOMPKINS DO, RACHEL K 305.1 TOBACCO ABUSE 07/06/2008 TOMPKINS DO, RACHEL K 300.00 ANXIETY 07/06/2008 TOMPKINS DO, RACHEL K 305.1 TOBACCO ABUSE 07/06/2008 TOMPKINS DO, RACHEL K 300.00 ANXIETY 07/06/2008 TOMPKINS DO, RACHEL K 305.1 TOBACCO ABUSE 07/06/2008 TOMPKINS DO, RACHEL K 300.00 ANXIETY 07/06/2008 TOMPKINS DO, RACHEL K 305.1 TOBACCO ABUSE 07/06/2008 TOMPKINS DO, RACHEL K 300.00 ANXIETY 07/06/2008 TOMPKINS RACHEL K 305.1 TOBACCO ABUSE 07/06/2008 NAKULLOPEZ CORRECTIVE THERAPY AIDEBECK Jimenez E 300.00 ANXIETY 07/06/2008 MARGUERITEBetteLOPEZ PERALESBECK Jimenez E 305.1 TOBACCO ABUSE 07/06/2008 LUCAINO PERALESTony HILDA R 300.00 ANXIETY 07/06/2008 LUCIANO PERALESTony HILDA R 305.1 TOBACCO ABUSE 07/06/2008 CURRY DDS, VIVIANA 300.00 ANXIETY 07/06/2008 CURRY DDS, VIVIANA 305.1 TOBACCO ABUSE 07/06/2008 WHITE DDS, ARNOLD J 300.00 ANXIETY 07/06/2008 WHITE DDS, ARNOLD J 305.1 TOBACCO ABUSE 07/06/2008 TURNER WILKINSON RACHEL K 300.00 ANXIETY 07/06/2008 TURNER WILKINSON RACHEL K 305.1 TOBACCO ABUSE 07/06/2008 TURNER WILKINSON RACHEL K 300.00 ANXIETY 07/06/2008 TURNER WILKINSON RACHEL K 305.1 TOBACCO ABUSE 07/06/2008 LUCIANO PERALESTony HILDA R 300.00 ANXIETY 07/06/2008 LUCIANO PERALESN, HILDA R 305.1 TOBACCO ABUSE 07/06/2008 TOMPKINS DO RACHEL K 300.00 ANXIETY 07/06/2008 TURNER WILKINSON RACHEL K 305.1 TOBACCO ABUSE 07/06/2008 TOMPKINS DO RACHEL K 300.00 ANXIETY 07/06/2008 TOMPKINS DO RACHEL K 305.1 TOBACCO ABUSE 07/13/2008 V05.3 HEPATITIS VIRAL/ALL 07/13/2008 V06.4 MMR, LVKGPQX-KPULR-ZFWNDMS VAC 07/13/2008 V05.3 HEPATITIS VIRAL/ALL 07/13/2008 V06.4 MMR, CXWVPUR-MTVVG-RIAPRNV VAC 07/13/2008 V05.3 HEPATITIS VIRAL/ALL 07/13/2008 V06.4 MMR, AMDZPKN-RRCGV-YLBAWYY VAC 07/13/2008 SPIKE TOMPKNIS DOA K V05.3 HEPATITIS VIRAL/ALL 07/13/2008 SPIKE TOMPKINS DOA K V06.4 MMR, JAGTOIP-AYDMJ-ZXACMIU VAC 07/13/2008 SPIKE TOMPKINS DOA K V05.3 HEPATITIS VIRAL/ALL 07/13/2008 TOMPKINS DO, RACHEL K V06.4 MMR, WZTMTJV-YPXMY-KAXFFPP VAC 07/13/2008 HELLOPEZ CORRECTIVE THERAPY AIDEBECK E V05.3 HEPATITIS VIRAL/ALL 07/13/2008 HELWIG CORRECTIVE THERAPY AIDE, BECK E V06.4 MMR, WBETMQR-UTTPS-QDDPHNO VAC 07/13/2008 TOMPKINS DO, RACHEL K V05.3 HEPATITIS VIRAL/ALL 07/13/2008 TOMPKINS DO, RACHEL K V06.4 MMR, JCFTQET-ZBHNP-CDZLFGT VAC 07/13/2008 TOMPKINS DO, RACHEL K V05.3 HEPATITIS VIRAL/ALL 07/13/2008 TOMPKINS DO, RACHEL K V06.4 MMR, JPCFAWT-GBDIX-DNFKITR VAC 07/13/2008 TOMPKINS DO, RACHEL K V05.3 HEPATITIS VIRAL/ALL 07/13/2008 TOMPKINS DO, RACHEL K V06.4 MMR, ZVWPFFN-AFXRV-KTQWCJH VAC 07/13/2008 TOMPKINS DO, RACHEL K V05.3 HEPATITIS VIRAL/ALL 07/13/2008 TOMPKINS DO, RACHEL K V06.4 MMR, CWWDDSX-ULZKJ-BVNDUFS VAC 07/13/2008 TOMPKINS DO, RACHEL K V05.3 HEPATITIS VIRAL/ALL 07/13/2008 TOMPKINS DO, RACHEL K V06.4 MMR, XNJYAIO-YAUAX-XKOFBMM VAC 07/13/2008 TOMPKINS DO, RACHEL K V05.3 HEPATITIS VIRAL/ALL 07/13/2008 TOMPKINS DO, RACHEL K V06.4 MMR, QKCPEQD-LUYXL-PNTFAZS VAC 07/13/2008 TOMPKINS DO, RACHEL K V05.3 HEPATITIS VIRAL/ALL 07/13/2008 TOMPKINS DO, RACHEL K V06.4 MMR, TICNSQC-UJIKQ-PQWMFLC VAC 07/13/2008 TOMPKINS DO, RACHEL K V05.3 HEPATITIS VIRAL/ALL 07/13/2008 TOMPKINS DO, RACHEL K V06.4 MMR, JOYVBFR-GJWRU-CPSUFRL VAC 07/13/2008 TOMPKINS DO, RACHEL K V05.3 HEPATITIS VIRAL/ALL 07/13/2008 TOMPKINS DO, RACHEL K V06.4 MMR, YZCWNDZ-MRPGC-BKEOWRQ VAC 07/13/2008 TOMPKINS DO, RACHEL K V05.3 HEPATITIS VIRAL/ALL 07/13/2008 TOMPKINS DO, RACHEL K V06.4 MMR, WKKGBRS-ZWAPK-SMFKPQU VAC 07/13/2008 BECK OWENS APRN V05.3 HEPATITIS VIRAL/ALL 07/13/2008 BECK OWENS APRN V06.4 MMR, KIAKSAA-GSQLW-UOFFCPH VAC 07/13/2008 WOLF SHANON, HILDA Chan V05.3 HEPATITIS VIRAL/ALL 07/13/2008 LUCIANO CLAUDIO, HILDA Chan V06.4 MMR, YMRNVMY-QWVAY-YDWWCRJ VAC 07/13/2008 CURRY DDS, VIVIANA V05.3 HEPATITIS VIRAL/ALL 07/13/2008 CURRY DDS, VIVIANA V06.4 MMR, PTFXAFB-ABSBR-SNLZCBW VAC 07/13/2008 WHITE DDS, ARNOLD J V05.3 HEPATITIS VIRAL/ALL 07/13/2008 WHITE DDS, ARNOLD J V06.4 MMR, VHAXOLG-AJMLR-DOWMOOL VAC 07/13/2008 RACHEL TOMPKINS DO V05.3 HEPATITIS VIRAL/ALL 07/13/2008 RACHEL TOMPKINS DO K V06.4 MMR, WKTRIPD-AHTVA-XFSAVIT VAC 07/13/2008 RACHEL TOMPKINS DO K V05.3 HEPATITIS VIRAL/ALL 07/13/2008 RACHEL TOMPKINS DO K V06.4 MMR, EYMYKGC-FDVJW-SHWVVXN VAC 07/13/2008 HILDA WOLF APRN V05.3 HEPATITIS VIRAL/ALL 07/13/2008 HILDA WOLF APRN V06.4 MMR, LWOTBOL-FGNUR-RTOVLKC VAC 07/13/2008 RACHEL TOMPKINS DO K V05.3 HEPATITIS VIRAL/ALL 07/13/2008 RACHEL TOMPKINS DO K V06.4 MMR, OEXWIOB-HRDGR-XPMSKMD VAC 07/13/2008 SPIKE TOMPKINS DOA K V05.3 HEPATITIS VIRAL/ALL 07/13/2008 TOMPKINS SPIKE WILKINSONA K V06.4 MMR, HIHBWTL-YGZZP-NBVIRYB VAC 07/24/2008 729.5 PAIN IN LIMB 07/24/2008 845.00 SPRAIN/STRAIN ANKLE 07/24/2008 729.5 PAIN IN LIMB 07/24/2008 845.00 SPRAIN/STRAIN ANKLE 07/24/2008 729.5 PAIN IN LIMB 07/24/2008 845.00 SPRAIN/STRAIN ANKLE 07/24/2008 TOMPKINS DO, RACHEL K 729.5 PAIN IN LIMB 07/24/2008 TOMPKINS DO, RACHEL K 845.00 SPRAIN/STRAIN ANKLE 07/24/2008 TOMPKINS DO, RACHEL K 729.5 PAIN IN LIMB 07/24/2008 TOMPKINS DO, RACHEL K 845.00 SPRAIN/STRAIN ANKLE 07/24/2008 HELLLOPEZ CORRECTIVE THERAPY AIDE, BECK E 729.5 PAIN IN LIMB 07/24/2008 HELLWIG CORRECTIVE THERAPY AIDE, BECK E 845.00 SPRAIN/STRAIN ANKLE 07/24/2008 TOMPKINS DO, RCAHEL K 729.5 PAIN IN LIMB 07/24/2008 TOMPKINS DO, RACHEL K 845.00 SPRAIN/STRAIN ANKLE 07/24/2008 TOMPKINS DO, RACHEL K 729.5 PAIN IN LIMB 07/24/2008 TOMPKINS DO, RACHEL K 845.00 SPRAIN/STRAIN ANKLE 07/24/2008 TOMPKINS DO, RACHEL K 729.5 PAIN IN LIMB 07/24/2008 TOMPKINS DO, RACHEL K 845.00 SPRAIN/STRAIN ANKLE 07/24/2008 TOMPKINS DO, RACHEL K 729.5 PAIN IN LIMB 07/24/2008 TOMPKINS DO, RACHEL K 845.00 SPRAIN/STRAIN ANKLE 07/24/2008 TOMPKINS DO, RACHEL K 729.5 PAIN IN LIMB 07/24/2008 TOMPKINS DO, RACHEL K 845.00 SPRAIN/STRAIN ANKLE 07/24/2008 TOMPKINS DO, RACHEL K 729.5 PAIN IN LIMB 07/24/2008 TOMPKINS DO, RACHEL K 845.00 SPRAIN/STRAIN ANKLE 07/24/2008 TOMPKINS DO, RACHEL K 729.5 PAIN IN LIMB 07/24/2008 TOMPKINS DO, RACHEL K 845.00 SPRAIN/STRAIN ANKLE 07/24/2008 TOMPKINS DO, RACHEL K 729.5 PAIN IN LIMB 07/24/2008 TOMPKINS DO, RACHEL K 845.00 SPRAIN/STRAIN ANKLE 07/24/2008 TOMPKINS DO, RACHEL K 729.5 PAIN IN LIMB 07/24/2008 TOMPKINS DO, RACHEL K 845.00 SPRAIN/STRAIN ANKLE 07/24/2008 TOMPKINS DO, RACHEL K 729.5 PAIN IN LIMB 07/24/2008 TOMPKINS DO, RACHEL K 845.00 SPRAIN/STRAIN ANKLE 07/24/2008 BECK OWENS APRN E 729.5 PAIN IN LIMB 07/24/2008 BECK OWENS APRN E 845.00 SPRAIN/STRAIN ANKLE 07/24/2008 HILDA WOLF APRN 729.5 PAIN IN LIMB 07/24/2008 HILDA WOLF APRN R 845.00 SPRAIN/STRAIN ANKLE 07/24/2008 CURRY DDS, VIVIANA 729.5 PAIN IN LIMB 07/24/2008 CURRY DDS, VIVIANA 845.00 SPRAIN/STRAIN ANKLE 07/24/2008 WHITE DDS, ARNOLD J 729.5 PAIN IN LIMB 07/24/2008 WHITE DDS, ARNOLD J 845.00 SPRAIN/STRAIN ANKLE 07/24/2008 RACHEL TOMPKINS DO 729.5 PAIN IN LIMB 07/24/2008 RACHEL TOMPKINS DO K 845.00 SPRAIN/STRAIN ANKLE 07/24/2008 RACHEL TOMPKINS DO 729.5 PAIN IN LIMB 07/24/2008 RACHEL TOMPKINS DO K 845.00 SPRAIN/STRAIN ANKLE 07/24/2008 HILDA WOLF APRN R 729.5 PAIN IN LIMB 07/24/2008 HILDA WOLF APRN 845.00 SPRAIN/STRAIN ANKLE 07/24/2008 RACHEL TOMPKINS DO 729.5 PAIN IN LIMB 07/24/2008 RACHEL TOMPKINS DO K 845.00 SPRAIN/STRAIN ANKLE 07/24/2008 RACHEL TOMPKINS DO 729.5 PAIN IN LIMB 07/24/2008 RACHEL TOMPKINS DO K 845.00 SPRAIN/STRAIN ANKLE 08/22/2008 382.00 OTITIS MEDIA ACUTE WITHOUT SPONTANEOUS RUPTURE EARDRUM 08/22/2008 462 PHARYNGITIS ACUTE 08/22/2008 382.00 OTITIS MEDIA ACUTE WITHOUT SPONTANEOUS RUPTURE EARDRUM 08/22/2008 462 PHARYNGITIS ACUTE 08/22/2008 382.00 OTITIS MEDIA ACUTE WITHOUT SPONTANEOUS RUPTURE EARDRUM 08/22/2008 462 PHARYNGITIS ACUTE 08/22/2008 RACHEL TOMPKINS DO K 382.00 OTITIS MEDIA ACUTE WITHOUT SPONTANEOUS RUPTURE EARDRUM 08/22/2008 RACHEL TOMPKINS DO 462 PHARYNGITIS ACUTE 08/22/2008 TOMPKINS DO, RACHEL K 382.00 OTITIS MEDIA ACUTE WITHOUT SPONTANEOUS RUPTURE EARDRUM 08/22/2008 TOMPKINS DO, RACHEL K 462 PHARYNGITIS ACUTE 08/22/2008 [facility] CORRECTIVE THERAPY AIDE, BECK E 382.00 OTITIS MEDIA ACUTE WITHOUT SPONTANEOUS RUPTURE EARDRUM 08/22/2008 [facility] CORRECTIVE THERAPY AIDE, BECK E 462 PHARYNGITIS ACUTE 08/22/2008 TOMPKINS DO, RACHEL K 382.00 OTITIS MEDIA ACUTE WITHOUT SPONTANEOUS RUPTURE EARDRUM 08/22/2008 TOMPKINS DO, RACHEL K 462 PHARYNGITIS ACUTE 08/22/2008 TOMPKINS DO, RACHEL K 382.00 OTITIS MEDIA ACUTE WITHOUT SPONTANEOUS RUPTURE EARDRUM 08/22/2008 TOMPKINS DO, RACHEL K 462 PHARYNGITIS ACUTE 08/22/2008 TOMPKINS DO, RACHEL K 382.00 OTITIS MEDIA ACUTE WITHOUT SPONTANEOUS RUPTURE EARDRUM 08/22/2008 TOMPKINS DO, RACHEL K 462 PHARYNGITIS ACUTE 08/22/2008 TOMPKINS DO, RACHEL K 382.00 OTITIS MEDIA ACUTE WITHOUT SPONTANEOUS RUPTURE EARDRUM 08/22/2008 TOMPKINS DO, RACHEL K 462 PHARYNGITIS ACUTE 08/22/2008 TOMPKINS DO, RACHEL K 382.00 OTITIS MEDIA ACUTE WITHOUT SPONTANEOUS RUPTURE EARDRUM 08/22/2008 TOMPKINS DO, RACHEL K 462 PHARYNGITIS ACUTE 08/22/2008 TOMPKINS DO, RACHEL K 382.00 OTITIS MEDIA ACUTE WITHOUT SPONTANEOUS RUPTURE EARDRUM 08/22/2008 TOMPKINS DO, RACHEL K 462 PHARYNGITIS ACUTE 08/22/2008 TOMPKINS DO, RACHEL K 382.00 OTITIS MEDIA ACUTE WITHOUT SPONTANEOUS RUPTURE EARDRUM 08/22/2008 TOMPKINS DO, RACHEL K 462 PHARYNGITIS ACUTE 08/22/2008 TOMPKINS DO, RACHEL K 382.00 OTITIS MEDIA ACUTE WITHOUT SPONTANEOUS RUPTURE EARDRUM 08/22/2008 TOMPKINS DO, RACHEL K 462 PHARYNGITIS ACUTE 08/22/2008 TOMPKINS DO, RACHEL K 382.00 OTITIS MEDIA ACUTE WITHOUT SPONTANEOUS RUPTURE EARDRUM 08/22/2008 TOMPKINS DO, RACHEL K 462 PHARYNGITIS ACUTE 08/22/2008 TOMPKINS DO, RACHEL K 382.00 OTITIS MEDIA ACUTE WITHOUT SPONTANEOUS RUPTURE EARDRUM 08/22/2008 TOMPKINS DO, RACHEL K 462 PHARYNGITIS ACUTE 08/22/2008 BECK OWENS APRN E 382.00 OTITIS MEDIA ACUTE WITHOUT SPONTANEOUS RUPTURE EARDRUM 08/22/2008 BECK OWENS APRN 462 PHARYNGITIS ACUTE 08/22/2008 HILDA WOLF APRN R 382.00 OTITIS MEDIA ACUTE WITHOUT SPONTANEOUS RUPTURE EARDRUM 08/22/2008 HILDA WOLF APRN R 462 PHARYNGITIS ACUTE 08/22/2008 CURRY DDS, VIVIANA 382.00 OTITIS MEDIA ACUTE WITHOUT SPONTANEOUS RUPTURE EARDRUM 08/22/2008 CURRY DDS, VIVIANA 462 PHARYNGITIS ACUTE 08/22/2008 WHITE DDS, ARNOLD J 382.00 OTITIS MEDIA ACUTE WITHOUT SPONTANEOUS RUPTURE EARDRUM 08/22/2008 WHITE DDS, ARNOLD J 462 PHARYNGITIS ACUTE 08/22/2008 RACHEL TOMPKINS DO K 382.00 OTITIS MEDIA ACUTE WITHOUT SPONTANEOUS RUPTURE EARDRUM 08/22/2008 SPIKE TOMPKINS DOA K 462 PHARYNGITIS ACUTE 08/22/2008 SPIKE TOMPKINS DOA K 382.00 OTITIS MEDIA ACUTE WITHOUT SPONTANEOUS RUPTURE EARDRUM 08/22/2008 SPIKE TOMPKINS DOA K 462 PHARYNGITIS ACUTE 08/22/2008 HILDA WOLF APRN R 382.00 OTITIS MEDIA ACUTE WITHOUT SPONTANEOUS RUPTURE EARDRUM 08/22/2008 HILDA WOLF APRN R 462 PHARYNGITIS ACUTE 08/22/2008 SPIKE TOMPKINS DOA K 382.00 OTITIS MEDIA ACUTE WITHOUT SPONTANEOUS RUPTURE EARDRUM 08/22/2008 SPIKE TOMPKINS DOA K 462 PHARYNGITIS ACUTE 08/22/2008 SPIKE TOMPKINS DOA K 382.00 OTITIS MEDIA ACUTE WITHOUT SPONTANEOUS RUPTURE EARDRUM 08/22/2008 TURNER WILKINSON RACHEL K 462 PHARYNGITIS ACUTE 10/05/2008 627.2 SYMPTOMATIC MENOPAUSAL OR FEMALE CLIMACTERIC STATES 10/05/2008 780.2 SYNCOPE AND COLLAPSE 10/05/2008 780.4 VERTIGO 10/05/2008 787.01 NAUSEA WITH VOMITING 10/05/2008 627.2 SYMPTOMATIC MENOPAUSAL OR FEMALE CLIMACTERIC STATES 10/05/2008 780.2 SYNCOPE AND COLLAPSE 10/05/2008 780.4 VERTIGO 10/05/2008 787.01 NAUSEA WITH VOMITING 10/05/2008 627.2 SYMPTOMATIC MENOPAUSAL OR FEMALE CLIMACTERIC STATES 10/05/2008 780.2 SYNCOPE AND COLLAPSE 10/05/2008 780.4 VERTIGO 10/05/2008 787.01 NAUSEA WITH VOMITING 10/05/2008 TOMPKINS DO, RACHEL K 627.2 SYMPTOMATIC MENOPAUSAL OR FEMALE CLIMACTERIC STATES 10/05/2008 TOMPKINS DO, RACHEL K 780.2 SYNCOPE AND COLLAPSE 10/05/2008 TOMPKINS DO, RACHEL K 780.4 VERTIGO 10/05/2008 TOMPKINS DO, RACHEL K 787.01 NAUSEA WITH VOMITING 10/05/2008 TOMPKINS DO, RACHEL K 627.2 SYMPTOMATIC MENOPAUSAL OR FEMALE CLIMACTERIC STATES 10/05/2008 TOMPKINS DO, RACHEL K 780.2 SYNCOPE AND COLLAPSE 10/05/2008 TOMPKINS DO, RACHEL K 780.4 VERTIGO 10/05/2008 TOMPKINS DO, RACHEL K 787.01 NAUSEA WITH VOMITING 10/05/2008 HELLWIG CORRECTIVE THERAPY AIDE BECK E 627.2 SYMPTOMATIC MENOPAUSAL OR FEMALE CLIMACTERIC STATES 10/05/2008 HELLWIG CORRECTIVE THERAPY AIDE BECK E 780.2 SYNCOPE AND COLLAPSE 10/05/2008 HELLWIG CORRECTIVE THERAPY AIDE BECK E 780.4 VERTIGO 10/05/2008 HELLWIG CORRECTIVE THERAPY AIDE BECK E 787.01 NAUSEA WITH VOMITING 10/05/2008 TOMPKINS DO, RACHEL K 627.2 SYMPTOMATIC MENOPAUSAL OR FEMALE CLIMACTERIC STATES 10/05/2008 TOMPKINS DO, RACHEL K 780.2 SYNCOPE AND COLLAPSE 10/05/2008 TOMPKINS DO, RACHEL K 780.4 VERTIGO 10/05/2008 TOMPKINS DO, RACHEL K 787.01 NAUSEA WITH VOMITING 10/05/2008 TOMPKINS DO, RACHEL K 627.2 SYMPTOMATIC MENOPAUSAL OR FEMALE CLIMACTERIC STATES 10/05/2008 TOMPKINS DO, RACHEL K 780.2 SYNCOPE AND COLLAPSE 10/05/2008 TOMPKINS DO, RACHEL K 780.4 VERTIGO 10/05/2008 TOMPKINS DO, RACHEL K 787.01 NAUSEA WITH VOMITING 10/05/2008 TOMPKINS DO, RACHEL K 627.2 SYMPTOMATIC MENOPAUSAL OR FEMALE CLIMACTERIC STATES 10/05/2008 TOMPKINS DO, RACHEL K 780.2 SYNCOPE AND COLLAPSE 10/05/2008 TOMPKINS DO, RACHEL K 780.4 VERTIGO 10/05/2008 TOMPKINS DO, RACHEL K 787.01 NAUSEA WITH VOMITING 10/05/2008 TOMPKINS DO, RACHEL K 627.2 SYMPTOMATIC MENOPAUSAL OR FEMALE CLIMACTERIC STATES 10/05/2008 TOMPKINS DO, RACHEL K 780.2 SYNCOPE AND COLLAPSE 10/05/2008 TOMPKINS DO, RACHEL K 780.4 VERTIGO 10/05/2008 TOMPKINS DO, RACHEL K 787.01 NAUSEA WITH VOMITING 10/05/2008 TOMPKINS DO, RACHEL K 627.2 SYMPTOMATIC MENOPAUSAL OR FEMALE CLIMACTERIC STATES 10/05/2008 TOMPKINS DO, RACHEL K 780.2 SYNCOPE AND COLLAPSE 10/05/2008 TOMPKINS DO, RACHEL K 780.4 VERTIGO 10/05/2008 TOMPKINS DO, RACHEL K 787.01 NAUSEA WITH VOMITING 10/05/2008 TOMPKINS DO, RACHEL K 627.2 SYMPTOMATIC MENOPAUSAL OR FEMALE CLIMACTERIC STATES 10/05/2008 TOMPKINS DO, RACHEL K 780.2 SYNCOPE AND COLLAPSE 10/05/2008 TOMPKINS DO, RACHEL K 780.4 VERTIGO 10/05/2008 TOMPKINS DO, RACHEL K 787.01 NAUSEA WITH VOMITING 10/05/2008 TOMPKINS DO, RACHEL K 627.2 SYMPTOMATIC MENOPAUSAL OR FEMALE CLIMACTERIC STATES 10/05/2008 TOMPKINS DO, RACHEL K 780.2 SYNCOPE AND COLLAPSE 10/05/2008 TOMPKINS DO, RACHEL K 780.4 VERTIGO 10/05/2008 TOMPKINS DO, RACHEL K 787.01 NAUSEA WITH VOMITING 10/05/2008 TOMPKINS DO, RACHEL K 627.2 SYMPTOMATIC MENOPAUSAL OR FEMALE CLIMACTERIC STATES 10/05/2008 TOMPKINS DO, RACHEL K 780.2 SYNCOPE AND COLLAPSE 10/05/2008 TOMPKINS DO, RACHEL K 780.4 VERTIGO 10/05/2008 TOMPKINS DO, RACHEL K 787.01 NAUSEA WITH VOMITING 10/05/2008 TOMPKINS DO, RACHEL K 627.2 SYMPTOMATIC MENOPAUSAL OR FEMALE CLIMACTERIC STATES 10/05/2008 TOMPKINS DO, RACHEL K 780.2 SYNCOPE AND COLLAPSE 10/05/2008 TOMPKINS DO, RACHEL K 780.4 VERTIGO 10/05/2008 TOMPKINS DO, RACHEL K 787.01 NAUSEA WITH VOMITING 10/05/2008 TOMPKINS DO, RACHEL K 627.2 SYMPTOMATIC MENOPAUSAL OR FEMALE CLIMACTERIC STATES 10/05/2008 TOMPKINS DO, RACHEL K 780.2 SYNCOPE AND COLLAPSE 10/05/2008 TOMPKINS DO, RACHEL K 780.4 VERTIGO 10/05/2008 TOMPKINS DO, RACHEL K 787.01 NAUSEA WITH VOMITING 10/05/2008 BECK OWENS APRN E 627.2 SYMPTOMATIC MENOPAUSAL OR FEMALE CLIMACTERIC STATES 10/05/2008 HELBECK PEÑA APRN E 780.2 SYNCOPE AND COLLAPSE 10/05/2008 HELBECK PEÑA APRN E 780.4 VERTIGO 10/05/2008 HELBECK MARROQUIN APRN E 787.01 NAUSEA WITH VOMITING 10/05/2008 WOLF HILDA CLAUDIO R 627.2 SYMPTOMATIC MENOPAUSAL OR FEMALE CLIMACTERIC STATES 10/05/2008 WOLF HILDA CLAUDIO R 780.2 SYNCOPE AND COLLAPSE 10/05/2008 WOLF HILDA CLAUDIO R 780.4 VERTIGO 10/05/2008 WOLF HILDA CLAUDIO R 787.01 NAUSEA WITH VOMITING 10/05/2008 CURRY DDS, VIVIANA 627.2 SYMPTOMATIC MENOPAUSAL OR FEMALE CLIMACTERIC STATES 10/05/2008 CURRY DDS, VIVIANA 780.2 SYNCOPE AND COLLAPSE 10/05/2008 CURRY DDS, VIVIANA 780.4 VERTIGO 10/05/2008 CURRY DDS, VIVIANA 787.01 NAUSEA WITH VOMITING 10/05/2008 WHITE DDS, ARNOLD J 627.2 SYMPTOMATIC MENOPAUSAL OR FEMALE CLIMACTERIC STATES 10/05/2008 WHITE DDS, ARNOLD J 780.2 SYNCOPE AND COLLAPSE 10/05/2008 WHITE DDS, ARNOLD J 780.4 VERTIGO 10/05/2008 WHITE DDS, ARNOLD J 787.01 NAUSEA WITH VOMITING 10/05/2008 TOMPKINS DO, RACHEL K 627.2 SYMPTOMATIC MENOPAUSAL OR FEMALE CLIMACTERIC STATES 10/05/2008 TOMPKINS DO, RACHEL K 780.2 SYNCOPE AND COLLAPSE 10/05/2008 TOMPKINS DO, RACHEL K 780.4 VERTIGO 10/05/2008 TOMPKINS DO, RACHEL K 787.01 NAUSEA WITH VOMITING 10/05/2008 TOMPKINS DO, RACHEL K 627.2 SYMPTOMATIC MENOPAUSAL OR FEMALE CLIMACTERIC STATES 10/05/2008 TOMPKINS DO, RACHEL K 780.2 SYNCOPE AND COLLAPSE 10/05/2008 TOMPKINS DO, RACHEL K 780.4 VERTIGO 10/05/2008 TOMPKINS DO, RACHEL K 787.01 NAUSEA WITH VOMITING 10/05/2008 WOLF CORRECTIVE THERAPY AIDE, HILDA R 627.2 SYMPTOMATIC MENOPAUSAL OR FEMALE CLIMACTERIC STATES 10/05/2008 WOLF CORRECTIVE THERAPY AIDE, HILDA R 780.2 SYNCOPE AND COLLAPSE 10/05/2008 WOLF CORRECTIVE THERAPY AIDE, HILDA R 780.4 VERTIGO 10/05/2008 WOLF CORRECTIVE THERAPY AIDE, HILDA R 787.01 NAUSEA WITH VOMITING 10/05/2008 TOMPKINS DO, RACHEL K 627.2 SYMPTOMATIC MENOPAUSAL OR FEMALE CLIMACTERIC STATES 10/05/2008 TOMPKINS DO, RACHEL K 780.2 SYNCOPE AND COLLAPSE 10/05/2008 TOMPKINS DO, RACHEL K 780.4 VERTIGO 10/05/2008 TOMPKINS DO, RACHEL K 787.01 NAUSEA WITH VOMITING 10/05/2008 TOMPKINS DO, RACHEL K 627.2 SYMPTOMATIC MENOPAUSAL OR FEMALE CLIMACTERIC STATES 10/05/2008 TOMPKINS DO, RACHEL K 780.2 SYNCOPE AND COLLAPSE 10/05/2008 TOMPKINS DO, RACHEL K 780.4 VERTIGO 10/05/2008 TOMPKINS DO, RACHEL K 787.01 NAUSEA WITH VOMITING 11/08/2008 784.0 headache 11/08/2008 784.0 headache 11/08/2008 784.0 headache 11/08/2008 TOMPKINS DO, RACHEL K 784.0 headache 11/08/2008 TOMPKINS DO, RACHEL K 784.0 headache 11/08/2008 MARGUERITELWIG BECK CLAUDIO E 784.0 headache 11/08/2008 TOMPKINS DO, RACHEL K 784.0 headache 11/08/2008 TOMPKINS DO, RACHEL K 784.0 headache 11/08/2008 TOMPKINS DO, RACHEL K 784.0 headache 11/08/2008 TOMPKINS DO, RACHEL K 784.0 headache 11/08/2008 TOMPKINS DO, RACHEL K 784.0 headache 11/08/2008 TOMPKINS DO, RACHEL K 784.0 headache 11/08/2008 TOMPKINS DO, RACHEL K 784.0 headache 11/08/2008 TOMPKINS DO, RACHEL K 784.0 headache 11/08/2008 TOMPKINS DO, RACHEL K 784.0 headache 11/08/2008 TOMPKINS DO, RACHEL K 784.0 headache 11/08/2008 HELLWIG BECK CLAUDIO E 784.0 headache 11/08/2008 WOLFHILDA Salas APRN R 784.0 headache 11/08/2008 CURRY AMANDAS, VIVIANA 784.0 headache 11/08/2008 WHITE DDS, ARNOLD J 784.0 headache 11/08/2008 TOMPKINS DO, RACHEL K 784.0 headache 11/08/2008 TOMPKINS DO, RACHEL K 784.0 headache 11/08/2008 WOLF HILDA CLAUDIO R 784.0 headache 11/08/2008 TOMPKINS DO, RACHEL K 784.0 headache 11/08/2008 TOMPKINS DO, RACHEL K 784.0 headache 04/17/2009 847.1 SPRAIN THORACIC REGION 04/17/2009 847.1 SPRAIN THORACIC REGION 04/17/2009 847.1 SPRAIN THORACIC REGION 04/17/2009 TOMPKINS DO, RACHEL K 847.1 SPRAIN THORACIC REGION 04/17/2009 TOMPKINS DO, RACHEL K 847.1 SPRAIN THORACIC REGION 04/17/2009 BECK OWENS APRN E 847.1 SPRAIN THORACIC REGION 04/17/2009 TOMPKINS DO, RACHEL K 847.1 SPRAIN THORACIC REGION 04/17/2009 TOMPKINS DO, RACHEL K 847.1 SPRAIN THORACIC REGION 04/17/2009 TOMPKINS DO, RACHEL K 847.1 SPRAIN THORACIC REGION 04/17/2009 TOMPKINS DO, RACHEL K 847.1 SPRAIN THORACIC REGION 04/17/2009 TOMPKINS DO, RACHEL K 847.1 SPRAIN THORACIC REGION 04/17/2009 TOMPKINS DO, RACHEL K 847.1 SPRAIN THORACIC REGION 04/17/2009 TOMPKINS DO, ARCHEL K 847.1 SPRAIN THORACIC REGION 04/17/2009 TOMPKINS DO, RACHEL K 847.1 SPRAIN THORACIC REGION 04/17/2009 TOMPKINS DO, RACHEL K 847.1 SPRAIN THORACIC REGION 04/17/2009 TOMPKINS DO, RACHEL K 847.1 SPRAIN THORACIC REGION 04/17/2009 BECK OWENS APRN E 847.1 SPRAIN THORACIC REGION 04/17/2009 WOLFHILDA Salas APRN 847.1 SPRAIN THORACIC REGION 04/17/2009 CURRY AMANDASVIVIANA 847.1 SPRAIN THORACIC REGION 04/17/2009 WHITE DDS, ARNOLD Byrd 847.1 SPRAIN THORACIC REGION 04/17/2009 TOMPKINS DO, RACHEL K 847.1 SPRAIN THORACIC REGION 04/17/2009 TOMPKINS DO, RACHEL K 847.1 [place] [facility] 04/17/2009 HILDA WOLF APRN 847.1 [place] [employer] [facility] 04/17/2009 TOMPKINS DO, RACHEL K 847.1 [place] [facility] 04/17/2009 TOMPKINS DO, RACHEL K 847.1 [place] [facility] 01/09/2010 079.99 UNSPECIFIED VIRAL INFECTION IN CONDITIONS CLASSIFIED ELSEWHERE AND OF UNSPECIFIED SITE 01/09/2010 079.99 UNSPECIFIED VIRAL INFECTION IN CONDITIONS CLASSIFIED ELSEWHERE AND OF UNSPECIFIED SITE 01/09/2010 079.99 UNSPECIFIED VIRAL INFECTION IN CONDITIONS CLASSIFIED ELSEWHERE AND OF UNSPECIFIED SITE 01/09/2010 TOMPKINS DO, RACHEL K 079.99 UNSPECIFIED VIRAL INFECTION IN CONDITIONS CLASSIFIED ELSEWHERE AND OF UNSPECIFIED SITE 01/09/2010 TOMPKINS DO, RACHEL K 079.99 UNSPECIFIED VIRAL INFECTION IN CONDITIONS CLASSIFIED ELSEWHERE AND OF UNSPECIFIED SITE 01/09/2010 BECK OWENS APRN 079.99 UNSPECIFIED VIRAL INFECTION IN CONDITIONS CLASSIFIED ELSEWHERE AND OF UNSPECIFIED SITE 01/09/2010 TOMPKINS DO, RACHEL K 079.99 UNSPECIFIED VIRAL INFECTION IN CONDITIONS CLASSIFIED ELSEWHERE AND OF UNSPECIFIED SITE 01/09/2010 TOMPKINS DO, RACHEL K 079.99 UNSPECIFIED VIRAL INFECTION IN CONDITIONS CLASSIFIED ELSEWHERE AND OF UNSPECIFIED SITE 01/09/2010 TOMPKINS DO, RACHEL K 079.99 UNSPECIFIED VIRAL INFECTION IN CONDITIONS CLASSIFIED ELSEWHERE AND OF UNSPECIFIED SITE 01/09/2010 TOMPKINS DO, RACHEL K 079.99 UNSPECIFIED VIRAL INFECTION IN CONDITIONS CLASSIFIED ELSEWHERE AND OF UNSPECIFIED SITE 01/09/2010 TOMPKINS DO, RACHEL K 079.99 UNSPECIFIED VIRAL INFECTION IN CONDITIONS CLASSIFIED ELSEWHERE AND OF UNSPECIFIED SITE 01/09/2010 TOMPKINS DO, RACHEL K 079.99 UNSPECIFIED VIRAL INFECTION IN CONDITIONS CLASSIFIED ELSEWHERE AND OF UNSPECIFIED SITE 01/09/2010 TOMPKINS DO, RACHEL K 079.99 UNSPECIFIED VIRAL INFECTION IN CONDITIONS CLASSIFIED ELSEWHERE AND OF UNSPECIFIED SITE 01/09/2010 TOMPKINS DO, RACHEL K 079.99 UNSPECIFIED VIRAL INFECTION IN CONDITIONS CLASSIFIED ELSEWHERE AND OF UNSPECIFIED SITE 01/09/2010 TOMPKINS DO, RACHEL K 079.99 UNSPECIFIED VIRAL INFECTION IN CONDITIONS CLASSIFIED ELSEWHERE AND OF UNSPECIFIED SITE 01/09/2010 TOMPKINS DO, RACHEL K 079.99 UNSPECIFIED VIRAL INFECTION IN CONDITIONS CLASSIFIED ELSEWHERE AND OF UNSPECIFIED SITE 01/09/2010 BECK OWENS APRN 079.99 UNSPECIFIED VIRAL INFECTION IN CONDITIONS CLASSIFIED ELSEWHERE AND OF UNSPECIFIED SITE 01/09/2010 HILDA WOLF APRN 079.99 UNSPECIFIED VIRAL INFECTION IN CONDITIONS CLASSIFIED ELSEWHERE AND OF UNSPECIFIED SITE 01/09/2010 PATRICIO DDSVIVIANA 079.99 UNSPECIFIED VIRAL INFECTION IN CONDITIONS CLASSIFIED ELSEWHERE AND OF UNSPECIFIED SITE 01/09/2010 JAMES PATELSARNOLD 079.99 UNSPECIFIED VIRAL INFECTION IN CONDITIONS CLASSIFIED ELSEWHERE AND OF UNSPECIFIED SITE 01/09/2010 TURNER DO RACHEL K 079.99 UNSPECIFIED VIRAL INFECTION IN CONDITIONS CLASSIFIED ELSEWHERE AND OF UNSPECIFIED SITE 01/09/2010 TOMPKINS DO RACHEL K 079.99 UNSPECIFIED VIRAL INFECTION IN CONDITIONS CLASSIFIED ELSEWHERE AND OF UNSPECIFIED SITE 01/09/2010 HILDA WOLF APRN 079.99 UNSPECIFIED VIRAL INFECTION IN CONDITIONS CLASSIFIED ELSEWHERE AND OF UNSPECIFIED SITE 01/09/2010 TOMPKINS DO RACHEL K 079.99 UNSPECIFIED VIRAL INFECTION IN CONDITIONS CLASSIFIED ELSEWHERE AND OF UNSPECIFIED SITE 01/09/2010 TOMPKINS DO, RACHEL K 079.99 UNSPECIFIED VIRAL INFECTION IN CONDITIONS CLASSIFIED ELSEWHERE AND OF UNSPECIFIED SITE 02/06/2010 278.02 OVERWEIGHT 02/06/2010 789.00 ABDOMINAL PAIN UNSPECIFIED SITE 02/06/2010 278.02 OVERWEIGHT 02/06/2010 789.00 ABDOMINAL PAIN UNSPECIFIED SITE 02/06/2010 278.02 OVERWEIGHT 02/06/2010 789.00 ABDOMINAL PAIN UNSPECIFIED SITE 02/06/2010 TOMPKINS DO RACHEL K 278.02 OVERWEIGHT 02/06/2010 TOMPKINS DO, RACHEL K 789.00 ABDOMINAL PAIN UNSPECIFIED SITE 02/06/2010 TOMPKINS DO, RACHEL K 278.02 OVERWEIGHT 02/06/2010 TOMPKINS DO, RACHEL K 789.00 ABDOMINAL PAIN UNSPECIFIED SITE 02/06/2010 BECK OWENS APRN 278.02 OVERWEIGHT 02/06/2010 BECK OWENS APRN 789.00 ABDOMINAL PAIN UNSPECIFIED SITE 02/06/2010 TOMPKINS DO RACHEL K 278.02 OVERWEIGHT 02/06/2010 TOMPKINS DO, RACHEL K 789.00 ABDOMINAL PAIN UNSPECIFIED SITE 02/06/2010 TOMPKINS DO, RACHEL K 278.02 OVERWEIGHT 02/06/2010 TOMPKINS DO, RACHEL K 789.00 ABDOMINAL PAIN UNSPECIFIED SITE 02/06/2010 TOMPKINS DO, RACHEL K 278.02 OVERWEIGHT 02/06/2010 TOMPKINS DO, RACHEL K 789.00 ABDOMINAL PAIN UNSPECIFIED SITE 02/06/2010 TOMPKINS DO, RACHEL K 278.02 OVERWEIGHT 02/06/2010 TOMPKINS DO, RACHEL K 789.00 ABDOMINAL PAIN UNSPECIFIED SITE 02/06/2010 TOMPKINS DO, RACHEL K 278.02 OVERWEIGHT 02/06/2010 TOMPKINS DO, RACHEL K 789.00 ABDOMINAL PAIN UNSPECIFIED SITE 02/06/2010 TOMPKINS DO, RACHEL K 278.02 OVERWEIGHT 02/06/2010 TOMPKINS DO, RACHEL K 789.00 ABDOMINAL PAIN UNSPECIFIED SITE 02/06/2010 TOMPKINS DO, RACHEL K 278.02 OVERWEIGHT 02/06/2010 TOMPKINS DO, RACHEL K 789.00 ABDOMINAL PAIN UNSPECIFIED SITE 02/06/2010 TOMPKINS DO, RACHEL K 278.02 OVERWEIGHT 02/06/2010 TOMPKINS DO, RACHEL K 789.00 ABDOMINAL PAIN UNSPECIFIED SITE 02/06/2010 TOMPKINS DO, RACHEL K 278.02 OVERWEIGHT 02/06/2010 TOMPKINS DO, RACHEL K 789.00 ABDOMINAL PAIN UNSPECIFIED SITE 02/06/2010 TOMPKINS DO, RACHEL K 278.02 OVERWEIGHT 02/06/2010 TOMPKINS DO, RACHEL K 789.00 ABDOMINAL PAIN UNSPECIFIED SITE 02/06/2010 BECK OWENS APRN 278.02 OVERWEIGHT 02/06/2010 BECK OWENS APRN 789.00 ABDOMINAL PAIN UNSPECIFIED SITE 02/06/2010 HILDA WOLF APRN 278.02 OVERWEIGHT 02/06/2010 HILDA WOLF APRN 789.00 ABDOMINAL PAIN UNSPECIFIED SITE 02/06/2010 VIVIANA CURRY DDS 278.02 OVERWEIGHT 02/06/2010 VIVIANA CURRY DDS 789.00 ABDOMINAL PAIN UNSPECIFIED SITE 02/06/2010 ARNOLD RAMIREZ DDS J 278.02 OVERWEIGHT 02/06/2010 WHITE ARNOLD BEVERLY 789.00 ABDOMINAL PAIN UNSPECIFIED SITE 02/06/2010 TOMPKINS DO, RACHEL K 278.02 OVERWEIGHT 02/06/2010 TOMPKINS DO, RACHEL K 789.00 ABDOMINAL PAIN UNSPECIFIED SITE 02/06/2010 TOMPKINS DO, RACHEL K 278.02 OVERWEIGHT 02/06/2010 TOMPKINS DO, RACHEL K 789.00 ABDOMINAL PAIN UNSPECIFIED SITE 02/06/2010 WOLFHILDA Salas APRN 278.02 OVERWEIGHT 02/06/2010 WOLFHILDA CHARLTON APRN 789.00 ABDOMINAL PAIN UNSPECIFIED SITE 02/06/2010 TOMPKINS DO, RACHEL K 278.02 OVERWEIGHT 02/06/2010 TOMPKINS DO, RACHEL K 789.00 ABDOMINAL PAIN UNSPECIFIED SITE 02/06/2010 TOMPKINS DO, RACHEL K 278.02 OVERWEIGHT 02/06/2010 TOMPKINS DO, RACHEL K 789.00 ABDOMINAL PAIN UNSPECIFIED SITE 04/08/2010 724.2 LUMBAGO 04/08/2010 728.85 SPASM OF MUSCLE 04/08/2010 922.31 CONTUSION OF TRUNK, BACK 04/08/2010 724.2 LUMBAGO 04/08/2010 728.85 SPASM OF MUSCLE 04/08/2010 922.31 CONTUSION OF TRUNK, BACK 04/08/2010 724.2 LUMBAGO 04/08/2010 728.85 SPASM OF MUSCLE 04/08/2010 922.31 CONTUSION OF TRUNK, BACK 04/08/2010 TOMPKINS DO, RACHEL K 724.2 LUMBAGO 04/08/2010 TOMPKINS DO, RACHEL K 728.85 SPASM OF MUSCLE 04/08/2010 TOMPKINS DO, RACHEL K 922.31 CONTUSION OF TRUNK, BACK 04/08/2010 TOMPKINS DO, RACHEL K 724.2 LUMBAGO 04/08/2010 TOMPKINS DO, RACHEL K 728.85 SPASM OF MUSCLE 04/08/2010 TOMPKINS DO, RACHEL K 922.31 CONTUSION OF TRUNK, BACK 04/08/2010 MARGUERITELBECK MARROQUIN APRN E 724.2 LUMBAGO 04/08/2010 BECK OWESN APRN E 728.85 SPASM OF MUSCLE 04/08/2010 BECK OWENS APRN E 922.31 CONTUSION OF TRUNK, BACK 04/08/2010 TOMPKINS DO, RACHEL K 724.2 LUMBAGO 04/08/2010 TOMPKINS DO, RACHEL K 728.85 SPASM OF MUSCLE 04/08/2010 TOMPKINS DO, RACHEL K 922.31 CONTUSION OF TRUNK, BACK 04/08/2010 TOMPKINS DO, RACHEL K 724.2 LUMBAGO 04/08/2010 TOMPKINS DO, RACHEL K 728.85 SPASM OF MUSCLE 04/08/2010 TOMPKINS DO, RACHEL K 922.31 CONTUSION OF TRUNK, BACK 04/08/2010 TOMPKINS DO, RACHEL K 724.2 LUMBAGO 04/08/2010 TOMPKINS DO, ARCHEL K 728.85 SPASM OF MUSCLE 04/08/2010 TOMPKINS DO, RACHEL K 922.31 CONTUSION OF TRUNK, BACK 04/08/2010 TOMPKINS DO, RACHEL K 724.2 LUMBAGO 04/08/2010 TOMPKINS DO, RACHEL K 728.85 SPASM OF MUSCLE 04/08/2010 TOMPKINS DO, RACHEL K 922.31 CONTUSION OF TRUNK, BACK 04/08/2010 TOMPKINS DO, RACHEL K 724.2 LUMBAGO 04/08/2010 TOMPKINS DO, RACHEL K 728.85 SPASM OF MUSCLE 04/08/2010 TOMPKINS DO, RACHEL K 922.31 CONTUSION OF TRUNK, BACK 04/08/2010 TOMPKINS DO, RACHEL K 724.2 LUMBAGO 04/08/2010 TOMPKINS DO, RACHEL K 728.85 SPASM OF MUSCLE 04/08/2010 TOMPKINS DO, RACHEL K 922.31 CONTUSION OF TRUNK, BACK 04/08/2010 TOMPKINS DO, RACHEL K 724.2 LUMBAGO 04/08/2010 TOMPKINS DO, RACHEL K 728.85 SPASM OF MUSCLE 04/08/2010 TOMPKINS DO, RACHEL K 922.31 CONTUSION OF TRUNK, BACK 04/08/2010 TOMPKINS DO, RACHEL K 724.2 LUMBAGO 04/08/2010 TOMPKINS DO, RACHEL K 728.85 SPASM OF MUSCLE 04/08/2010 TOMPKINS DO, RACHEL K 922.31 CONTUSION OF TRUNK, BACK 04/08/2010 TOMPKINS DO, RACHEL K 724.2 LUMBAGO 04/08/2010 TOMPKINS DO, RACHEL K 728.85 SPASM OF MUSCLE 04/08/2010 TOMPKINS DO, RACHEL K 922.31 CONTUSION OF TRUNK, BACK 04/08/2010 TOMPKINS DO, RACHEL K 724.2 LUMBAGO 04/08/2010 TOMPKINS DO, RACHEL K 728.85 SPASM OF MUSCLE 04/08/2010 TOMPKINS DO, RACHEL K 922.31 CONTUSION OF TRUNK, BACK 04/08/2010 [facility] E 724.2 [place]UM[place]AG[place] 04/08/2010 MARGUERITEBECK MARROQUIN APRN E 728.85 SPASM OF MUSCLE 04/08/2010 [facility] 922.31 CONTUSION OF TRUNK, BACK 04/08/2010 WOLF HILDA CLAUDIO 724.2 LUMBAGO 04/08/2010 WOLF HILDA CLAUDIO R 728.85 SPASM OF MUSCLE 04/08/2010 WOLF HILDA CLAUDIO 922.31 CONTUSION OF TRUNK, BACK 04/08/2010 CURRYVIVIANA MCRAE DDS 724.2 LUMBAGO 04/08/2010 CURRYINA PATELSVIVIANA 728.85 SPASM OF MUSCLE 04/08/2010 CURRYVIVIANA BUCKLEY DDS 922.31 CONTUSION OF TRUNK, BACK 04/08/2010 WHITE DDSARNOLD J 724.2 LUMBAGO 04/08/2010 WHITE DDSARNOLD J 728.85 SPASM OF MUSCLE 04/08/2010 WHITE DDSARNOLD J 922.31 CONTUSION OF TRUNK, BACK 04/08/2010 TOMPKINS DO, RACHEL K 724.2 LUMBAGO 04/08/2010 TOMPKINS DO, RACHEL K 728.85 SPASM OF MUSCLE 04/08/2010 TOMPKINS DO, RACHEL K 922.31 CONTUSION OF TRUNK, BACK 04/08/2010 TOMPKINS DO, RACHEL K 724.2 LUMBAGO 04/08/2010 TOMPKINS DO, RACHEL K 728.85 SPASM OF MUSCLE 04/08/2010 TOMPKINS DO, RACHEL K 922.31 CONTUSION OF TRUNK, BACK 04/08/2010 WOLFHILDA CAHRLTON APRN 724.2 LUMBAGO 04/08/2010 HILDA WOLF APRN 728.85 SPASM OF MUSCLE 04/08/2010 HILDA WOLF APRN 922.31 CONTUSION OF TRUNK, BACK 04/08/2010 TOMPKINS DOSPIKEA K 724.2 LUMBAGO 04/08/2010 TOMPKINS DO, RACHEL K 728.85 SPASM OF MUSCLE 04/08/2010 TOMPKINS DO, RACHEL K 922.31 CONTUSION OF TRUNK, BACK 04/08/2010 TOMPKINS DO, RACHEL K 724.2 LUMBAGO 04/08/2010 TOMPKINS DO, RACHEL K 728.85 SPASM OF MUSCLE 04/08/2010 TOMPKINS DO, RACHEL K 922.31 CONTUSION OF TRUNK, BACK 07/28/2010 724.4 BACK PAIN WITH RADIATION 07/28/2010 724.4 BACK PAIN WITH RADIATION 07/28/2010 724.4 BACK PAIN WITH RADIATION 07/28/2010 TOMPKINS DO, RACHEL K 724.4 BACK PAIN WITH RADIATION 07/28/2010 TOMPKINS DO, RACHEL K 724.4 BACK PAIN WITH RADIATION 07/28/2010 BECK OWENS APRN 724.4 BACK PAIN WITH RADIATION 07/28/2010 TOMPKINS DO, RACHEL K 724.4 BACK PAIN WITH RADIATION 07/28/2010 TOMPKINS DO, RACHEL K 724.4 BACK PAIN WITH RADIATION 07/28/2010 TOMPKINS DO, RACHEL K 724.4 BACK PAIN WITH RADIATION 07/28/2010 TOMPKINS DO, RACHEL K 724.4 BACK PAIN WITH RADIATION 07/28/2010 TOMPKINS DO, RACHEL K 724.4 BACK PAIN WITH RADIATION 07/28/2010 TOMPKINS DO, RACHEL K 724.4 BACK PAIN WITH RADIATION 07/28/2010 TOMPKINS DO, RACHEL K 724.4 BACK PAIN WITH RADIATION 07/28/2010 TOMPKINS DO, RACHEL K 724.4 BACK PAIN WITH RADIATION 07/28/2010 TOMPKINS DO, RACHEL K 724.4 BACK PAIN WITH RADIATION 07/28/2010 TOMPKINS DO, RACHEL K 724.4 BACK PAIN WITH RADIATION 07/28/2010 BECK OWENS APRN 724.4 BACK PAIN WITH RADIATION 07/28/2010 HILDA WOLF APRN 724.4 BACK PAIN WITH RADIATION 07/28/2010 VIVIANA CURRY DDS 724.4 BACK PAIN WITH RADIATION 07/28/2010 ARNOLD RAMIREZ DDS 724.4 BACK PAIN WITH RADIATION 07/28/2010 TOMPKINS DO, RACHEL K 724.4 BACK PAIN WITH RADIATION 07/28/2010 TOMPKINS DO, RACHEL K 724.4 BACK PAIN WITH RADIATION 07/28/2010 HILDA WOLF APRN 724.4 BACK PAIN WITH RADIATION 07/28/2010 TOMPKINS DO, RACHEL K 724.4 BACK PAIN WITH RADIATION 07/28/2010 TOMPKINS DO, RACHEL K 724.4 BACK PAIN WITH RADIATION 08/20/2010 722.93 OTHER AND UNSPECIFIED DISC DISORDER OF LUMBAR REGION 08/20/2010 722.93 OTHER AND UNSPECIFIED DISC DISORDER OF LUMBAR REGION 08/20/2010 722.93 OTHER AND UNSPECIFIED DISC DISORDER OF LUMBAR REGION 08/20/2010 TOMPKINS DO, RACHEL K 722.93 OTHER AND UNSPECIFIED DISC DISORDER OF LUMBAR REGION 08/20/2010 TOMPKINS DO, RACHEL K 722.93 OTHER AND UNSPECIFIED DISC DISORDER OF LUMBAR REGION 08/20/2010 BECK OWENS APRN E 722.93 OTHER AND UNSPECIFIED DISC DISORDER OF LUMBAR REGION 08/20/2010 TOMPKINS DO, RACHEL K 722.93 OTHER AND UNSPECIFIED DISC DISORDER OF LUMBAR REGION 08/20/2010 TOMPKINS DO, RACHEL K 722.93 OTHER AND UNSPECIFIED DISC DISORDER OF LUMBAR REGION 08/20/2010 TOMPKINS DO, RACHEL K 722.93 OTHER AND UNSPECIFIED DISC DISORDER OF LUMBAR REGION 08/20/2010 TOMPKINS DO, RACHEL K 722.93 OTHER AND UNSPECIFIED DISC DISORDER OF LUMBAR REGION 08/20/2010 TOMPKINS DO, RACHEL K 722.93 OTHER AND UNSPECIFIED DISC DISORDER OF LUMBAR REGION 08/20/2010 TOMPKINS DO, RACHEL K 722.93 OTHER AND UNSPECIFIED DISC DISORDER OF LUMBAR REGION 08/20/2010 TOMPKINS DO, RACHEL K 722.93 OTHER AND UNSPECIFIED DISC DISORDER OF LUMBAR REGION 08/20/2010 TOMPKINS DO, RACHEL K 722.93 OTHER AND UNSPECIFIED DISC DISORDER OF LUMBAR REGION 08/20/2010 TOMPKINS DO, RACHEL K 722.93 OTHER AND UNSPECIFIED DISC DISORDER OF LUMBAR REGION 08/20/2010 TOMPKINS DO, RACHEL K 722.93 OTHER AND UNSPECIFIED DISC DISORDER OF LUMBAR REGION 08/20/2010 BECK OWENS APRN 722.93 OTHER AND UNSPECIFIED DISC DISORDER OF LUMBAR REGION 08/20/2010 HILDA WOLF APRN 722.93 OTHER AND UNSPECIFIED DISC DISORDER OF LUMBAR REGION 08/20/2010 YONY CURRY DDSW 722.93 OTHER AND UNSPECIFIED DISC DISORDER OF LUMBAR REGION 08/20/2010 JAMES DDS, ARNOLD Byrd 722.93 OTHER AND UNSPECIFIED DISC DISORDER OF LUMBAR REGION 08/20/2010 TOMPKINS DO, RACHEL K 722.93 OTHER AND UNSPECIFIED DISC DISORDER OF LUMBAR REGION 08/20/2010 TOMPKINS DO, RACHEL K 722.93 OTHER AND UNSPECIFIED DISC DISORDER OF LUMBAR REGION 08/20/2010 HILDA WOLF APRN 722.93 OTHER AND UNSPECIFIED DISC DISORDER OF LUMBAR REGION 08/20/2010 TOMPKINS DO, RACHEL K 722.93 OTHER AND UNSPECIFIED DISC DISORDER OF LUMBAR REGION 08/20/2010 TOMPKINS DO, RACHEL K 722.93 OTHER AND UNSPECIFIED DISC DISORDER OF LUMBAR REGION 09/23/2010 388.70 EAR ACHE 09/23/2010 388.70 EAR ACHE 09/23/2010 388.70 EAR ACHE 09/23/2010 TOMPKINS DO, RACHEL K 388.70 EAR ACHE 09/23/2010 TOMPKINS DO, RACHEL K 388.70 EAR ACHE 09/23/2010 BECK OWENS APRN 388.70 EAR ACHE 09/23/2010 TOMPKINS DO, RACHEL K 388.70 EAR ACHE 09/23/2010 TOMPKINS DO, RACHEL K 388.70 EAR ACHE 09/23/2010 TOMPKINS DO, RACHEL K 388.70 EAR ACHE 09/23/2010 TOMPKINS DO, RACHEL K 388.70 EAR ACHE 09/23/2010 TOMPKINS DO, RACHEL K 388.70 EAR ACHE 09/23/2010 TOMPKINS DO, RACHEL K 388.70 EAR ACHE 09/23/2010 TOMPKINS DO, RACHEL K 388.70 EAR ACHE 09/23/2010 TOMPKINS DO, RACHEL K 388.70 EAR ACHE 09/23/2010 TOMPKINS DO, RACHEL K 388.70 EAR ACHE 09/23/2010 TOMPKINS DO, RACHEL K 388.70 EAR ACHE 09/23/2010 BCEK OWENS APRN 388.70 EAR ACHE 09/23/2010 HILDA WOLF APRN 388.70 EAR ACHE 09/23/2010 CURRY DDS, VIVIANA 388.70 EAR ACHE 09/23/2010 JAMES PATELSARNOLD 388.70 EAR ACHE 09/23/2010 TOMPKINS DO, RACHEL K 388.70 EAR ACHE 09/23/2010 TOMPKINS DO, RACHEL K 388.70 EAR ACHE 09/23/2010 HILDA WOLF APRN 388.70 EAR ACHE 09/23/2010 TOMPKINS DO, RACHEL K 388.70 EAR ACHE 09/23/2010 TOMPKINS DO, RACHEL K 388.70 EAR ACHE 10/08/2010 461.9 SINUSITIS ACUTE 10/08/2010 461.9 SINUSITIS ACUTE 10/08/2010 461.9 SINUSITIS ACUTE 10/08/2010 TOMPKINS DO, RACHEL K 461.9 SINUSITIS ACUTE 10/08/2010 TOMPKINS DO, RACHEL K 461.9 SINUSITIS ACUTE 10/08/2010 BECK OWENS APRN 461.9 SINUSITIS ACUTE 10/08/2010 TOMPKINS DO, RACHEL K 461.9 SINUSITIS ACUTE 10/08/2010 TOMPKINS DO, RACHEL K 461.9 SINUSITIS ACUTE 10/08/2010 TMOPKINS DO, RACHEL K 461.9 SINUSITIS ACUTE 10/08/2010 TOMPKINS DO, RACHEL K 461.9 SINUSITIS ACUTE 10/08/2010 TOMPKINS DO, RACHEL K 461.9 SINUSITIS ACUTE 10/08/2010 TOMPKINS DO, RACHEL K 461.9 SINUSITIS ACUTE 10/08/2010 TOMPKINS DO, RACHEL K 461.9 SINUSITIS ACUTE 10/08/2010 TOMPKINS DO, RACHEL K 461.9 SINUSITIS ACUTE 10/08/2010 TOMPKINS DO, RACHEL K 461.9 SINUSITIS ACUTE 10/08/2010 TOMPKINS DO, RACHEL K 461.9 SINUSITIS ACUTE 10/08/2010 BECK OWENS APRN 461.9 SINUSITIS ACUTE 10/08/2010 HILDA WOLF APRN 461.9 SINUSITIS ACUTE 10/08/2010 VIVIANA CURRY DDS 461.9 SINUSITIS ACUTE 10/08/2010 ARNOLD RAMIREZ DDS 461.9 SINUSITIS ACUTE 10/08/2010 TOMPKINS DO, RACHEL K 461.9 SINUSITIS ACUTE 10/08/2010 TOMPKINS DO, RACHEL K 461.9 SINUSITIS ACUTE 10/08/2010 HILDA WOLF APRN 461.9 SINUSITIS ACUTE 10/08/2010 TOMPKINS DO, RACHEL K 461.9 SINUSITIS ACUTE 10/08/2010 TOMPKINS DO, RACHEL K 461.9 SINUSITIS ACUTE 11/11/2010 053.9 HERPES ZOSTER WITHOUT COMPLICATION 11/11/2010 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 11/11/2010 698.9 UNSPECIFIED PRURITIC DISORDER 11/11/2010 053.9 HERPES ZOSTER WITHOUT COMPLICATION 11/11/2010 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 11/11/2010 698.9 UNSPECIFIED PRURITIC DISORDER 11/11/2010 053.9 HERPES ZOSTER WITHOUT COMPLICATION 11/11/2010 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 11/11/2010 698.9 UNSPECIFIED PRURITIC DISORDER 11/11/2010 TOMPKINS DO, RACHEL K 053.9 HERPES ZOSTER WITHOUT COMPLICATION 11/11/2010 TOMPKINS DO, RACHEL K 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 11/11/2010 TOMPKINS DO, RACHEL K 698.9 UNSPECIFIED PRURITIC DISORDER 11/11/2010 TOMPKINS DO, RACHEL K 053.9 HERPES ZOSTER WITHOUT COMPLICATION 11/11/2010 TOMPKINS DO, RACHEL K 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 11/11/2010 TOMPKINS DO, RACHEL K 698.9 UNSPECIFIED PRURITIC DISORDER 11/11/2010 HELLLOPEZ CORRECTIVE THERAPY AIDE BECK E 053.9 HERPES ZOSTER WITHOUT COMPLICATION 11/11/2010 HELLWIG CORRECTIVE THERAPY AIDE BECK E 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 11/11/2010 HELLWIG CORRECTIVE THERAPY AIDE, BECK E 698.9 UNSPECIFIED PRURITIC DISORDER 11/11/2010 TOMPKINS DO, RACHEL K 053.9 HERPES ZOSTER WITHOUT COMPLICATION 11/11/2010 TOMPKINS DO, RACHEL K 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 11/11/2010 TOMPKINS DO, RACHEL K 698.9 UNSPECIFIED PRURITIC DISORDER 11/11/2010 TOMPKINS DO, RACHEL K 053.9 HERPES ZOSTER WITHOUT COMPLICATION 11/11/2010 TOMPKINS DO, RACHEL K 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 11/11/2010 TOMPKINS DO, RACHEL K 698.9 UNSPECIFIED PRURITIC DISORDER 11/11/2010 TOMPKINS DO, RACHEL K 053.9 HERPES ZOSTER WITHOUT COMPLICATION 11/11/2010 TOMPKINS DO, RACHEL K 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 11/11/2010 TOMPKINS DO, RACHEL K 698.9 UNSPECIFIED PRURITIC DISORDER 11/11/2010 TOMPKINS DO, RACHEL K 053.9 HERPES ZOSTER WITHOUT COMPLICATION 11/11/2010 TOMPKINS DO, RACHEL K 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 11/11/2010 TOMPKINS DO, RACHEL K 698.9 UNSPECIFIED PRURITIC DISORDER 11/11/2010 TOMPKINS DO, RACHEL K 053.9 HERPES ZOSTER WITHOUT COMPLICATION 11/11/2010 TOMPKINS DO, RACHEL K 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 11/11/2010 TOMPKINS DO, RACHEL K 698.9 UNSPECIFIED PRURITIC DISORDER 11/11/2010 TOMPKINS DO, RACHEL K 053.9 HERPES ZOSTER WITHOUT COMPLICATION 11/11/2010 TOMPKINS DO, RACHEL K 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 11/11/2010 TOMPKINS DO, RACHEL K 698.9 UNSPECIFIED PRURITIC DISORDER 11/11/2010 TOMPKINS DO, RACHEL K 053.9 HERPES ZOSTER WITHOUT COMPLICATION 11/11/2010 TOMPKINS DO, RACHEL K 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 11/11/2010 TOMPKINS DO, RACHEL K 698.9 UNSPECIFIED PRURITIC DISORDER 11/11/2010 TOMPKINS DO, RACHEL K 053.9 HERPES ZOSTER WITHOUT COMPLICATION 11/11/2010 TOMPKINS DO, RACHEL K 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 11/11/2010 TOMPKINS DO, RACHEL K 698.9 UNSPECIFIED PRURITIC DISORDER 11/11/2010 TOMPKINS DO, RACHEL K 053.9 HERPES ZOSTER WITHOUT COMPLICATION 11/11/2010 TOMPKINS DO, RACHEL K 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 11/11/2010 TOMPKINS DO, RACHEL K 698.9 UNSPECIFIED PRURITIC DISORDER 11/11/2010 TOMPKINS DO, RACHEL K 053.9 HERPES ZOSTER WITHOUT COMPLICATION 11/11/2010 TOMPKINS DO, RACHEL K 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 11/11/2010 TOMPKINS DO, RACHEL K 698.9 UNSPECIFIED PRURITIC DISORDER 11/11/2010 BECK OWENS APRN E 053.9 HERPES ZOSTER WITHOUT COMPLICATION 11/11/2010 BECK OWENS APRN E 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 11/11/2010 WHITE DDS, ARNOLD J 698.9 UNSPECIFIED PRURITIC DISORDER 11/11/2010 TOMPKINS DO RACHEL K 053.9 HERPES ZOSTER WITHOUT COMPLICATION 11/11/2010 TOMPKINS DO RACHEL K 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 11/11/2010 TOMPKINS DO RACHEL K 698.9 UNSPECIFIED PRURITIC DISORDER 11/11/2010 TOMPKINS DO RACHEL K 053.9 HERPES ZOSTER WITHOUT COMPLICATION 11/11/2010 TOMPKINS DO, RACHEL K 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 11/11/2010 TOMPKINS DO, RACHEL K 698.9 UNSPECIFIED PRURITIC DISORDER 11/11/2010 HILDA WOLF APRN 053.9 HERPES ZOSTER WITHOUT COMPLICATION 11/11/2010 HILDA WOLF APRN 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 11/11/2010 HILDA WOLF APRN 698.9 UNSPECIFIED PRURITIC DISORDER 11/11/2010 TOMPKINS DO RACHEL K 053.9 HERPES ZOSTER WITHOUT COMPLICATION 11/11/2010 TOMPKINS DO, RACHEL K 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 11/11/2010 TOMPKINS DO, RACHEL K 698.9 UNSPECIFIED PRURITIC DISORDER 11/11/2010 TOMPKINS DO, RACHEL K 053.9 HERPES ZOSTER WITHOUT COMPLICATION 11/11/2010 TOMPKINS DO RACHEL K 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 11/11/2010 TOMPKINS DO, RACHEL K 698.9 UNSPECIFIED PRURITIC DISORDER 12/10/2010 311 DEPRESSIVE DISORDER NOS 12/10/2010 311 DEPRESSIVE DISORDER NOS 12/10/2010 311 DEPRESSIVE DISORDER NOS 12/10/2010 TOMPKINS DO RACHEL K 311 DEPRESSIVE DISORDER NOS 12/10/2010 TOMPKINS DO, RACHEL K 311 DEPRESSIVE DISORDER NOS 12/10/2010 BECK OWENS APRN 311 DEPRESSIVE DISORDER NOS 12/10/2010 TOMPKINS DO, RACHEL K 311 DEPRESSIVE DISORDER NOS 12/10/2010 TOMPKINS DO, RACHEL K 311 DEPRESSIVE DISORDER NOS 12/10/2010 TOMPKINS DO, RACHEL K 311 DEPRESSIVE DISORDER NOS 12/10/2010 TOMPKINS DO, RACHEL K 311 DEPRESSIVE DISORDER NOS 12/10/2010 TOMPKINS DO, RACHEL K 311 DEPRESSIVE DISORDER NOS 12/10/2010 TOMPKINS DO, RACHEL K 311 DEPRESSIVE DISORDER NOS 12/10/2010 TOMPKINS DO, RACHEL K 311 DEPRESSIVE DISORDER NOS 12/10/2010 TOMPKINS DO, RACHEL K 311 DEPRESSIVE DISORDER NOS 12/10/2010 TOMPKINS DO, RACHEL K 311 DEPRESSIVE DISORDER NOS 12/10/2010 TOMPKINS DO, RACHEL K 311 DEPRESSIVE DISORDER NOS 12/10/2010 BECK OWENS APRN 311 DEPRESSIVE DISORDER NOS 12/10/2010 HILDA WOLF APRN 311 DEPRESSIVE DISORDER NOS 12/10/2010 VIVIANA CURRY DDS 311 DEPRESSIVE DISORDER NOS 12/10/2010 ARNOLD RAMIREZ DDS 311 DEPRESSIVE DISORDER NOS 12/10/2010 TOMPKINS DO, RACHEL K 311 DEPRESSIVE DISORDER NOS 12/10/2010 TOMPKINS DO, RACHEL K 311 DEPRESSIVE DISORDER NOS 12/10/2010 HILDA WOLF APRN 311 DEPRESSIVE DISORDER NOS 12/10/2010 TOMPKINS DO, RACHEL K 311 DEPRESSIVE DISORDER NOS 12/10/2010 TOMPKINS DO, RACHEL K 311 DEPRESSIVE DISORDER NOS 01/09/2011 465.9 UPPER RESPIRATORY INFECTION 01/09/2011 834.00 CLOSED DISLOCATION OF FINGER UNSPECIFIED PART 01/09/2011 465.9 UPPER RESPIRATORY INFECTION 01/09/2011 834.00 CLOSED DISLOCATION OF FINGER UNSPECIFIED PART 01/09/2011 465.9 UPPER RESPIRATORY INFECTION 01/09/2011 834.00 CLOSED DISLOCATION OF FINGER UNSPECIFIED PART 01/09/2011 TOMPKINS DO, RACHEL K 465.9 UPPER RESPIRATORY INFECTION 01/09/2011 TOMPKINS DO, RACHEL K 834.00 CLOSED DISLOCATION OF FINGER UNSPECIFIED PART 01/09/2011 TOMPKINS DO, RACHEL K 465.9 UPPER RESPIRATORY INFECTION 01/09/2011 TOMPKINS DO, RACHEL K 834.00 CLOSED DISLOCATION OF FINGER UNSPECIFIED PART 01/09/2011 HELLWIG CORRECTIVE THERAPY AIDE, BECK E 465.9 UPPER RESPIRATORY INFECTION 01/09/2011 HELLWIG CORRECTIVE THERAPY AIDE, BECK E 834.00 CLOSED DISLOCATION OF FINGER UNSPECIFIED PART 01/09/2011 TOMPKINS DO, RACHEL K 465.9 UPPER RESPIRATORY INFECTION 01/09/2011 TOMPKINS DO, RACHEL K 834.00 CLOSED DISLOCATION OF FINGER UNSPECIFIED PART 01/09/2011 TOMPKINS DO, RACHEL K 465.9 UPPER RESPIRATORY INFECTION 01/09/2011 TOMPKINS DO, RACHEL K 834.00 CLOSED DISLOCATION OF FINGER UNSPECIFIED PART 01/09/2011 TOMPKINS DO, RACHEL K 465.9 UPPER RESPIRATORY INFECTION 01/09/2011 TOMPKINS DO, RACHEL K 834.00 CLOSED DISLOCATION OF FINGER UNSPECIFIED PART 01/09/2011 TOMPKINS DO, RACHEL K 465.9 UPPER RESPIRATORY INFECTION 01/09/2011 TOMPKINS DO, RACHEL K 834.00 CLOSED DISLOCATION OF FINGER UNSPECIFIED PART 01/09/2011 TOMPKINS DO, RACHEL K 465.9 UPPER RESPIRATORY INFECTION 01/09/2011 TOMPKINS DO, RACHEL K 834.00 CLOSED DISLOCATION OF FINGER UNSPECIFIED PART 01/09/2011 TOMPKINS DO, RACHEL K 465.9 UPPER RESPIRATORY INFECTION 01/09/2011 TOMPKINS DO, RACHEL K 834.00 CLOSED DISLOCATION OF FINGER UNSPECIFIED PART 01/09/2011 TOMPKINS DO, RACHEL K 465.9 UPPER RESPIRATORY INFECTION 01/09/2011 TOMPKINS DO, RACHEL K 834.00 CLOSED DISLOCATION OF FINGER UNSPECIFIED PART 01/09/2011 TOMPKINS DO, RACHEL K 465.9 UPPER RESPIRATORY INFECTION 01/09/2011 TOMPKINS DO, RACHEL K 834.00 CLOSED DISLOCATION OF FINGER UNSPECIFIED PART 01/09/2011 TOMPKINS DO, RACHEL K 465.9 UPPER RESPIRATORY INFECTION 01/09/2011 TOMPKINS DO, RACHEL K 834.00 CLOSED DISLOCATION OF FINGER UNSPECIFIED PART 01/09/2011 TOMPKINS DO, RACHEL K 465.9 UPPER RESPIRATORY INFECTION 01/09/2011 TOMPKINS DO, RACHEL K 834.00 CLOSED DISLOCATION OF FINGER UNSPECIFIED PART 01/09/2011 ROMAN CORRECTIVE THERAPY AIDE, BECK E 465.9 UPPER RESPIRATORY INFECTION 01/09/2011 ROMAN CORRECTIVE THERAPY AIDE, BECK E 834.00 CLOSED DISLOCATION OF FINGER UNSPECIFIED PART 01/09/2011 HILDA WOLF APRN 465.9 UPPER RESPIRATORY INFECTION 01/09/2011 WOLF HILDA CLAUDIO 834.00 CLOSED DISLOCATION OF FINGER UNSPECIFIED PART 01/09/2011 CURRY DDS, VIVIANA 465.9 UPPER RESPIRATORY INFECTION 01/09/2011 CURRY DDS, VIVIANA 834.00 CLOSED DISLOCATION OF FINGER UNSPECIFIED PART 01/09/2011 WHITE DDS, ARNOLD J 465.9 UPPER RESPIRATORY INFECTION 01/09/2011 WHITE DDS, ARNOLD J 834.00 CLOSED DISLOCATION OF FINGER UNSPECIFIED PART 01/09/2011 TOMPKINS DO, RACHEL K 465.9 UPPER RESPIRATORY INFECTION 01/09/2011 TOMPKINS DO, RACHEL K 834.00 CLOSED DISLOCATION OF FINGER UNSPECIFIED PART 01/09/2011 TOMPKINS DO, RACHEL K 465.9 UPPER RESPIRATORY INFECTION 01/09/2011 TOMPKINS DO, RACHEL K 834.00 CLOSED DISLOCATION OF FINGER UNSPECIFIED PART 01/09/2011 HILDA WOLF APRN 465.9 UPPER RESPIRATORY INFECTION 01/09/2011 WOLF HILDA CLAUDIO 834.00 CLOSED DISLOCATION OF FINGER UNSPECIFIED PART 01/09/2011 TOMPKINS DO, RACHEL K 465.9 UPPER RESPIRATORY INFECTION 01/09/2011 TOMPKINS DO, RACHEL K 834.00 CLOSED DISLOCATION OF FINGER UNSPECIFIED PART 01/09/2011 TOMPKINS DO, RACHEL K 465.9 UPPER RESPIRATORY INFECTION 01/09/2011 TOMPKINS DO, RACHEL K 834.00 CLOSED DISLOCATION OF FINGER UNSPECIFIED PART 01/27/2011 478.19 OTHER DISEASES OF NASAL CAVITY AND SINUSES 01/27/2011 786.2 COUGH 01/27/2011 478.19 OTHER DISEASES OF NASAL CAVITY AND SINUSES 01/27/2011 786.2 COUGH 01/27/2011 478.19 OTHER DISEASES OF NASAL CAVITY AND SINUSES 01/27/2011 786.2 COUGH 01/27/2011 TOMPKINS DO, RACHEL K 478.19 OTHER DISEASES OF NASAL CAVITY AND SINUSES 01/27/2011 TOMPKINS DO, RACHEL K 786.2 COUGH 01/27/2011 TOMPKINS DO, RACHEL K 478.19 OTHER DISEASES OF NASAL CAVITY AND SINUSES 01/27/2011 TOMPKINS DO, RACHEL K 786.2 COUGH 01/27/2011 BECK OWENS APRN 478.19 OTHER DISEASES OF NASAL CAVITY AND SINUSES 01/27/2011 BECK OWENS APRN 786.2 COUGH 01/27/2011 TOMPKINS DO, RACHEL K 478.19 OTHER DISEASES OF NASAL CAVITY AND SINUSES 01/27/2011 TOMPKINS DO, RACHEL K 786.2 COUGH 01/27/2011 TOMPKINS DO, RACHEL K 478.19 OTHER DISEASES OF NASAL CAVITY AND SINUSES 01/27/2011 TOMPKINS DO, RACHEL K 786.2 COUGH 01/27/2011 TOMPKINS DO, RACHEL K 478.19 OTHER DISEASES OF NASAL CAVITY AND SINUSES 01/27/2011 TOMPKINS DO, RACHEL K 786.2 COUGH 01/27/2011 TOMPKINS DO, RACHEL K 478.19 OTHER DISEASES OF NASAL CAVITY AND SINUSES 01/27/2011 TOMPKINS DO, RACHEL K 786.2 COUGH 01/27/2011 TOMPKINS DO, RACHEL K 478.19 OTHER DISEASES OF NASAL CAVITY AND SINUSES 01/27/2011 TOMPKINS DO, RACHEL K 786.2 COUGH 01/27/2011 TOMPKINS DO, RACHEL K 478.19 OTHER DISEASES OF NASAL CAVITY AND SINUSES 01/27/2011 TOMPKINS DO, RACHEL K 786.2 COUGH 01/27/2011 TOMPKINS DO, RACHEL K 478.19 OTHER DISEASES OF NASAL CAVITY AND SINUSES 01/27/2011 TOMPKINS DO, RACHEL K 786.2 COUGH 01/27/2011 TOMPKINS DO, RACHEL K 478.19 OTHER DISEASES OF NASAL CAVITY AND SINUSES 01/27/2011 TMOPKINS DO, RACHEL K 786.2 COUGH 01/27/2011 TOMPKINS DO, RACHEL K 478.19 OTHER DISEASES OF NASAL CAVITY AND SINUSES 01/27/2011 TOMPKINS DO, RACHEL K 786.2 COUGH 01/27/2011 TOMPKINS DO, RACHEL K 478.19 OTHER DISEASES OF NASAL CAVITY AND SINUSES 01/27/2011 TOMPKINS DO, RACHEL K 786.2 COUGH 01/27/2011 BECK OWENS APRN 478.19 OTHER DISEASES OF NASAL CAVITY AND SINUSES 01/27/2011 BECK OWENS APRN 786.2 COUGH 01/27/2011 HILDA WOLF APRN 478.19 OTHER DISEASES OF NASAL CAVITY AND SINUSES 01/27/2011 HILDA WOLF APRN 786.2 COUGH 01/27/2011 VIVIANA CURRY DDS 478.19 OTHER DISEASES OF NASAL CAVITY AND SINUSES 01/27/2011 VIVIANA CURRY DDS 786.2 COUGH 01/27/2011 ARNOLD RAMIREZ DDS 478.19 OTHER DISEASES OF NASAL CAVITY AND SINUSES 01/27/2011 WHITE DDS, ARNOLD J 786.2 COUGH 01/27/2011 TOMPKINS DO, RACHEL K 478.19 OTHER DISEASES OF NASAL CAVITY AND SINUSES 01/27/2011 TOMPKINS DO, RACHEL K 786.2 COUGH 01/27/2011 TOMPKINS DO, RACHEL K 478.19 OTHER DISEASES OF NASAL CAVITY AND SINUSES 01/27/2011 TOMPKINS DO, RACHEL K 786.2 COUGH 01/27/2011 WOLFHILDA CHARLTON APRN 478.19 OTHER DISEASES OF NASAL CAVITY AND SINUSES 01/27/2011 HILDA WOLF APRN 786.2 COUGH 01/27/2011 TOMPKINS DO, RACHEL K 478.19 OTHER DISEASES OF NASAL CAVITY AND SINUSES 01/27/2011 TOMPKINS DO, RACHEL K 786.2 COUGH 01/27/2011 TOMPKINS DO, RACHEL K 478.19 OTHER DISEASES OF NASAL CAVITY AND SINUSES 01/27/2011 TOMPKINS DO, RACHEL K 786.2 COUGH 03/05/2011 Ot 285.9 03/09/2011 285.9 ANEMIA 03/09/2011 626.2 MENORRHAGIA 03/09/2011 285.9 ANEMIA 03/09/2011 626.2 MENORRHAGIA 03/09/2011 285.9 ANEMIA 03/09/2011 626.2 MENORRHAGIA 03/09/2011 TOMPKINS DO, RACHEL K 285.9 ANEMIA 03/09/2011 TOMPKINS DO, RACHEL K 626.2 MENORRHAGIA 03/09/2011 TOMPKINS DO, RACHEL K 285.9 ANEMIA 03/09/2011 TOMPKINS DO, RACHEL K 626.2 MENORRHAGIA 03/09/2011 HELLWIG CORRECTIVE THERAPY AIDE, BECK E 285.9 ANEMIA 03/09/2011 HELLWIG CORRECTIVE THERAPY AIDE, BECK E 626.2 MENORRHAGIA 03/09/2011 TOMPKINS DO, RACHEL K 285.9 ANEMIA 03/09/2011 TOMPKINS DO, RACHEL K 626.2 MENORRHAGIA 03/09/2011 TOMPKINS DO, RACHEL K 285.9 ANEMIA 03/09/2011 TOMPKINS DO, RACHEL K 626.2 MENORRHAGIA 03/09/2011 TOMPKINS DO, RACHEL K 285.9 ANEMIA 03/09/2011 TOMPKINS DO, RACHEL K 626.2 MENORRHAGIA 03/09/2011 TOMPKINS DO, RACHEL K 285.9 ANEMIA 03/09/2011 TOMPKINS DO, RACHEL K 626.2 MENORRHAGIA 03/09/2011 TOMPKINS DO, RACHEL K 285.9 ANEMIA 03/09/2011 TOMPKINS DO, RACHEL K 626.2 MENORRHAGIA 03/09/2011 TOMPKINS DO, RACHEL K 285.9 ANEMIA 03/09/2011 TOMPKINS DO, RACHEL K 626.2 MENORRHAGIA 03/09/2011 TOMPKINS DO, RACHEL K 285.9 ANEMIA 03/09/2011 TOMPKINS DO, RACHEL K 626.2 MENORRHAGIA 03/09/2011 TOMPKINS DO, RACHEL K 285.9 ANEMIA 03/09/2011 TOMPKINS DO, RACHEL K 626.2 MENORRHAGIA 03/09/2011 TOMPKINS DO, RACHEL K 285.9 ANEMIA 03/09/2011 TOMPKINS DO, RACHEL K 626.2 MENORRHAGIA 03/09/2011 TOMPKINS DO, RACHEL K 285.9 ANEMIA 03/09/2011 TOMPKINS DO, RACHEL K 626.2 MENORRHAGIA 03/09/2011 BECK OWENS APRN E 285.9 ANEMIA 03/09/2011 HELSPIKE PEÑA APRNSIE E 626.2 MENORRHAGIA 03/09/2011 HILDA WOLF APRN 285.9 ANEMIA 03/09/2011 HILDA WOLF APRN 626.2 MENORRHAGIA 03/09/2011 CURRY DDS, VIVIANA 285.9 ANEMIA 03/09/2011 CURRY DDS, VIVIANA 626.2 MENORRHAGIA 03/09/2011 WHITE DDS, ARNOLD J 285.9 ANEMIA 03/09/2011 WHITE DDS, ARNOLD J 626.2 MENORRHAGIA 03/09/2011 TOMPKINS DO, RACHEL K 285.9 ANEMIA 03/09/2011 TOMPKINS DO, RACHEL K 626.2 MENORRHAGIA 03/09/2011 TOMPKINS DO, RACHEL K 285.9 ANEMIA 03/09/2011 TOMPKINS DO, RACHEL K 626.2 MENORRHAGIA 03/09/2011 HILDA WOLF APRN R 285.9 ANEMIA 03/09/2011 HILDA WOLF APRN 626.2 MENORRHAGIA 03/09/2011 TOMPKINS DO, RACHEL K 285.9 ANEMIA 03/09/2011 TOMPKINS DO, RACHEL K 626.2 MENORRHAGIA 03/09/2011 TOMPKINS DO, RACHEL K 285.9 ANEMIA 03/09/2011 TOMPKINS DO, RACHEL K 626.2 MENORRHAGIA 03/18/2011 009.1 GASTROENTERITIS, ACUTE INFECTIOUS 03/18/2011 009.1 GASTROENTERITIS, ACUTE INFECTIOUS 03/18/2011 009.1 GASTROENTERITIS, ACUTE INFECTIOUS 03/18/2011 TOMPKINS DO, RACHEL K 009.1 GASTROENTERITIS, ACUTE INFECTIOUS 03/18/2011 TOMPKINS DO, RACHEL K 009.1 GASTROENTERITIS, ACUTE INFECTIOUS 03/18/2011 BECK OWENS APRN 009.1 GASTROENTERITIS, ACUTE INFECTIOUS 03/18/2011 TOMPKINS DO, RACHEL K 009.1 GASTROENTERITIS, ACUTE INFECTIOUS 03/18/2011 TOMPKINS DO, RACHEL K 009.1 GASTROENTERITIS, ACUTE INFECTIOUS 03/18/2011 TOMPKINS DO, RACHEL K 009.1 GASTROENTERITIS, ACUTE INFECTIOUS 03/18/2011 TOMPKINS DO, RACHEL K 009.1 GASTROENTERITIS, ACUTE INFECTIOUS 03/18/2011 TOMPKINS DO, RACHEL K 009.1 GASTROENTERITIS, ACUTE INFECTIOUS 03/18/2011 TOMPKINS DO, RACHEL K 009.1 GASTROENTERITIS, ACUTE INFECTIOUS 03/18/2011 TOMPKINS DO, RACHEL K 009.1 GASTROENTERITIS, ACUTE INFECTIOUS 03/18/2011 TOMPKINS DO, RACHEL K 009.1 GASTROENTERITIS, ACUTE INFECTIOUS 03/18/2011 TOMPKINS DO, RACHEL K 009.1 GASTROENTERITIS, ACUTE INFECTIOUS 03/18/2011 TOMPKINS DO, RACHEL K 009.1 GASTROENTERITIS, ACUTE INFECTIOUS 03/18/2011 BECK OWENS APRN 009.1 GASTROENTERITIS, ACUTE INFECTIOUS 03/18/2011 HILDA WOLF APRN 009.1 GASTROENTERITIS, ACUTE INFECTIOUS 03/18/2011 PATRICIO PATELSVIVIANA 009.1 GASTROENTERITIS, ACUTE INFECTIOUS 03/18/2011 JAMES DDS, ARNOLD Byrd 009.1 GASTROENTERITIS, ACUTE INFECTIOUS 03/18/2011 TOMPKINS DO, RACHEL K 009.1 GASTROENTERITIS, ACUTE INFECTIOUS 03/18/2011 TOMPKINS DO, RACHEL K 009.1 GASTROENTERITIS, ACUTE INFECTIOUS 03/18/2011 HILDA WOLF APRN 009.1 GASTROENTERITIS, ACUTE INFECTIOUS 03/18/2011 TOMPKINS DO, RACHEL K 009.1 GASTROENTERITIS, ACUTE INFECTIOUS 03/18/2011 TOMPKINS DO, RACHEL K 009.1 GASTROENTERITIS, ACUTE INFECTIOUS 04/29/2011 692.9 DERMATITIS CONTACT UNSPECIFIED 04/29/2011 729.1 MYALGIA AND MYOSITIS, UNSPECIFIED 04/29/2011 692.9 DERMATITIS CONTACT UNSPECIFIED 04/29/2011 729.1 MYALGIA AND MYOSITIS, UNSPECIFIED 04/29/2011 692.9 DERMATITIS CONTACT UNSPECIFIED 04/29/2011 729.1 MYALGIA AND MYOSITIS, UNSPECIFIED 04/29/2011 TOMPKINS DO, RACHEL K 692.9 DERMATITIS CONTACT UNSPECIFIED 04/29/2011 TOMPKINS DO, RACHEL K 729.1 MYALGIA AND MYOSITIS, UNSPECIFIED 04/29/2011 TOMPKINS DO, RACHEL K 692.9 DERMATITIS CONTACT UNSPECIFIED 04/29/2011 TOMPKINS DO, RACHEL K 729.1 MYALGIA AND MYOSITIS, UNSPECIFIED 04/29/2011 MARGUERITELWIG CORRECTIVE THERAPY AIDELINGE E 692.9 DERMATITIS CONTACT UNSPECIFIED 04/29/2011 ROMAN CORRECTIVE THERAPY AIDESPIKEBECK E 729.1 MYALGIA AND MYOSITIS, UNSPECIFIED 04/29/2011 TOMPKINS DO, RACHEL K 692.9 DERMATITIS CONTACT UNSPECIFIED 04/29/2011 TOMPKINS DO, RACHEL K 729.1 MYALGIA AND MYOSITIS, UNSPECIFIED 04/29/2011 TOMPKINS DO, RACHEL K 692.9 DERMATITIS CONTACT UNSPECIFIED 04/29/2011 TOMPKINS DO, RACHEL K 729.1 MYALGIA AND MYOSITIS, UNSPECIFIED 04/29/2011 TOMPKINS DO, RACHEL K 692.9 DERMATITIS CONTACT UNSPECIFIED 04/29/2011 TOMPKINS DO, RACHEL K 729.1 MYALGIA AND MYOSITIS, UNSPECIFIED 04/29/2011 TOMPKINS DO, RACHEL K 692.9 DERMATITIS CONTACT UNSPECIFIED 04/29/2011 TOMPKINS DO, RACHEL K 729.1 MYALGIA AND MYOSITIS, UNSPECIFIED 04/29/2011 TOMPKINS DO, RACHEL K 692.9 DERMATITIS CONTACT UNSPECIFIED 04/29/2011 TOMPKINS DO, RACHEL K 729.1 MYALGIA AND MYOSITIS, UNSPECIFIED 04/29/2011 TOMPKINS DO, RACHEL K 692.9 DERMATITIS CONTACT UNSPECIFIED 04/29/2011 TOMPKINS DO, RACHEL K 729.1 MYALGIA AND MYOSITIS, UNSPECIFIED 04/29/2011 TOMPKINS DO, RACHEL K 692.9 DERMATITIS CONTACT UNSPECIFIED 04/29/2011 TOMPKINS DO, RACHEL K 729.1 MYALGIA AND MYOSITIS, UNSPECIFIED 04/29/2011 TOMPKINS DO, RACHEL K 692.9 DERMATITIS CONTACT UNSPECIFIED 04/29/2011 TOMPKINS DO, RACHEL K 729.1 MYALGIA AND MYOSITIS, UNSPECIFIED 04/29/2011 TOMPKINS DO, RACHEL K 692.9 DERMATITIS CONTACT UNSPECIFIED 04/29/2011 TOMPKINS DO, RACHEL K 729.1 MYALGIA AND MYOSITIS, UNSPECIFIED 04/29/2011 TOMPKINS DO, RACHEL K 692.9 DERMATITIS CONTACT UNSPECIFIED 04/29/2011 TOMPKINS DO, RACHEL K 729.1 MYALGIA AND MYOSITIS, UNSPECIFIED 04/29/2011 BECK OWENS APRN 692.9 DERMATITIS CONTACT UNSPECIFIED 04/29/2011 BECK OWENS APRN E 729.1 MYALGIA AND MYOSITIS, UNSPECIFIED 04/29/2011 HILDA WOLF APRN 692.9 DERMATITIS CONTACT UNSPECIFIED 04/29/2011 HILDA WOLF APRN 729.1 MYALGIA AND MYOSITIS, UNSPECIFIED 04/29/2011 VIVIANA CURRY DDS 692.9 DERMATITIS CONTACT UNSPECIFIED 04/29/2011 VIVIANA CURRY DDS 729.1 MYALGIA AND MYOSITIS, UNSPECIFIED 04/29/2011 ARNOLD RAMIREZ DDS 692.9 DERMATITIS CONTACT UNSPECIFIED 04/29/2011 JAMES PATELSARNOLD 729.1 MYALGIA AND MYOSITIS, UNSPECIFIED 04/29/2011 TOMPKINS DO, RACHEL K 692.9 DERMATITIS CONTACT UNSPECIFIED 04/29/2011 TOMPKINS DO, RACHEL K 729.1 MYALGIA AND MYOSITIS, UNSPECIFIED 04/29/2011 TOMPKINS DO, RACHEL K 692.9 DERMATITIS CONTACT UNSPECIFIED 04/29/2011 TOMPKINS DO, RACHEL K 729.1 MYALGIA AND MYOSITIS, UNSPECIFIED 04/29/2011 HILDA WOLF APRN 692.9 DERMATITIS CONTACT UNSPECIFIED 04/29/2011 HILDA WOLF APRN 729.1 MYALGIA AND MYOSITIS, UNSPECIFIED 04/29/2011 TOMPKINS DO, RACHEL K 692.9 DERMATITIS CONTACT UNSPECIFIED 04/29/2011 TOMPKINS DO, RACHEL K 729.1 MYALGIA AND MYOSITIS, UNSPECIFIED 04/29/2011 TOMPKINS DO, RACHEL K 692.9 DERMATITIS CONTACT UNSPECIFIED 04/29/2011 TOMPKINS DO, RACHEL K 729.1 MYALGIA AND MYOSITIS, UNSPECIFIED 05/07/2011 625.9 PELVIC PAIN 05/07/2011 625.9 PELVIC PAIN 05/07/2011 625.9 PELVIC PAIN 05/07/2011 TOMPKINS DO, RACHEL K 625.9 PELVIC PAIN 05/07/2011 TOMPKINS DO, RACHEL K 625.9 PELVIC PAIN 05/07/2011 BECK OWENS APRN 625.9 PELVIC PAIN 05/07/2011 TOMPKINS DO, RACHEL K 625.9 PELVIC PAIN 05/07/2011 TOMPKINS DO, RACHEL K 625.9 PELVIC PAIN 05/07/2011 TOMPKINS DO, RACHEL K 625.9 PELVIC PAIN 05/07/2011 TOMPKINS DO, RACHEL K 625.9 PELVIC PAIN 05/07/2011 TOMPKINS DO, RACHEL K 625.9 PELVIC PAIN 05/07/2011 TOMPKINS DO, RACHEL K 625.9 PELVIC PAIN 05/07/2011 TOMPKINS DO, RACHEL K 625.9 PELVIC PAIN 05/07/2011 TOMPKINS DO, RACHEL K 625.9 PELVIC PAIN 05/07/2011 TOMPKINS DO, RACHEL K 625.9 PELVIC PAIN 05/07/2011 TOMPKINS DO, RACHEL K 625.9 PELVIC PAIN 05/07/2011 BECK OWENS APRN 625.9 PELVIC PAIN 05/07/2011 HILDA WOLF APRN 625.9 PELVIC PAIN 05/07/2011 VIVIANA CURRY DDS 625.9 PELVIC PAIN 05/07/2011 ARNOLD RAMIREZ DDS 625.9 PELVIC PAIN 05/07/2011 TOMPKINS DO, RACHEL K 625.9 PELVIC PAIN 05/07/2011 TOMPKINS DO, RACHEL K 625.9 PELVIC PAIN 05/07/2011 HILDA WOLF APRN 625.9 PELVIC PAIN 05/07/2011 TOMPKINS DO, RACHEL K 625.9 PELVIC PAIN 05/07/2011 TOMPKINS DO, RACHEL K 625.9 PELVIC PAIN 05/11/2011 599.0 URINARY TRACT INFECTION 05/11/2011 616.10 VAGINITIS VULVOVAGINITIS UNSPECIFIED 05/11/2011 599.0 URINARY TRACT INFECTION 05/11/2011 616.10 VAGINITIS VULVOVAGINITIS UNSPECIFIED 05/11/2011 599.0 URINARY TRACT INFECTION 05/11/2011 616.10 VAGINITIS VULVOVAGINITIS UNSPECIFIED 05/11/2011 TOMPKINS DO, RACHEL K 599.0 URINARY TRACT INFECTION 05/11/2011 TOMPKINS DO, RACHEL K 616.10 VAGINITIS VULVOVAGINITIS UNSPECIFIED 05/11/2011 TOMPKINS DO, RACHEL K 599.0 URINARY TRACT INFECTION 05/11/2011 TOMPKINS DO, RACHEL K 616.10 VAGINITIS VULVOVAGINITIS UNSPECIFIED 05/11/2011 HELLWIG CORRECTIVE THERAPY AIDE, BECK E 599.0 URINARY TRACT INFECTION 05/11/2011 HELLWIG CORRECTIVE THERAPY AIDE, BECK E 616.10 VAGINITIS VULVOVAGINITIS UNSPECIFIED 05/11/2011 TOMPKINS DO, RACHEL K 599.0 URINARY TRACT INFECTION 05/11/2011 TOMPKINS DO, RACHEL K 616.10 VAGINITIS VULVOVAGINITIS UNSPECIFIED 05/11/2011 TOMPKINS DO, RACHEL K 599.0 URINARY TRACT INFECTION 05/11/2011 TOMPKINS DO, RACHEL K 616.10 VAGINITIS VULVOVAGINITIS UNSPECIFIED 05/11/2011 TOMPKINS DO, RACHEL K 599.0 URINARY TRACT INFECTION 05/11/2011 TOMPKINS DO, RACHEL K 616.10 VAGINITIS VULVOVAGINITIS UNSPECIFIED 05/11/2011 TOMPKINS DO, RACHEL K 599.0 URINARY TRACT INFECTION 05/11/2011 TOMPKINS DO, RACHEL K 616.10 VAGINITIS VULVOVAGINITIS UNSPECIFIED 05/11/2011 TOMPKINS DO, RACHEL K 599.0 URINARY TRACT INFECTION 05/11/2011 TOMPKINS DO, RACHEL K 616.10 VAGINITIS VULVOVAGINITIS UNSPECIFIED 05/11/2011 TOMPKINS DO, RACHEL K 599.0 URINARY TRACT INFECTION 05/11/2011 TOMPKINS DO, RACHEL K 616.10 VAGINITIS VULVOVAGINITIS UNSPECIFIED 05/11/2011 TOMPKINS DO, RACHEL K 599.0 URINARY TRACT INFECTION 05/11/2011 TOMPKINS DO, RACHEL K 616.10 VAGINITIS VULVOVAGINITIS UNSPECIFIED 05/11/2011 TOMPKINS DO, RACHEL K 599.0 URINARY TRACT INFECTION 05/11/2011 TOMPKINS DO, RACHEL K 616.10 VAGINITIS VULVOVAGINITIS UNSPECIFIED 05/11/2011 TOMPKINS DO, RACHEL K 599.0 URINARY TRACT INFECTION 05/11/2011 TOMPKINS DO, RACHEL K 616.10 VAGINITIS VULVOVAGINITIS UNSPECIFIED 05/11/2011 TOMPKINS DO, RACHEL K 599.0 URINARY TRACT INFECTION 05/11/2011 TOMPKINS DO, RACHEL K 616.10 VAGINITIS VULVOVAGINITIS UNSPECIFIED 05/11/2011 BECK OWENS APRN 599.0 URINARY TRACT INFECTION 05/11/2011 BECK OWENS APRN E 616.10 VAGINITIS VULVOVAGINITIS UNSPECIFIED 05/11/2011 HILDA WOLF APRN 599.0 URINARY TRACT INFECTION 05/11/2011 HILDA WOLF APRN 616.10 VAGINITIS VULVOVAGINITIS UNSPECIFIED 05/11/2011 CURRY DDSVIVIANA 599.0 URINARY TRACT INFECTION 05/11/2011 CURRY AMANDAS, VIVIANA 616.10 VAGINITIS VULVOVAGINITIS UNSPECIFIED 05/11/2011 JAMES DDS, ARNOLD J 599.0 URINARY TRACT INFECTION 05/11/2011 WHITE DDS, ARNOLD J 616.10 VAGINITIS VULVOVAGINITIS UNSPECIFIED 05/11/2011 TURNER WILKINSON RACHEL K 599.0 URINARY TRACT INFECTION 05/11/2011 TURNER DO, RACHEL K 616.10 VAGINITIS VULVOVAGINITIS UNSPECIFIED 05/11/2011 TOMPKINS DO, RACHEL K 599.0 URINARY TRACT INFECTION 05/11/2011 TURNER WILKINSON, RACHEL K 616.10 VAGINITIS VULVOVAGINITIS UNSPECIFIED 05/11/2011 HILDA WOLF APRN 599.0 URINARY TRACT INFECTION 05/11/2011 HILDA WOLF APRN 616.10 VAGINITIS VULVOVAGINITIS UNSPECIFIED 05/11/2011 SPIKE TOMPKINS DOA K 599.0 URINARY TRACT INFECTION 05/11/2011 TOMPKINS DO, RACHEL K 616.10 VAGINITIS VULVOVAGINITIS UNSPECIFIED 05/11/2011 TOMPKINS DO, RACHEL K 599.0 URINARY TRACT INFECTION 05/11/2011 TOMPKINS DO, RACHEL K 616.10 VAGINITIS VULVOVAGINITIS UNSPECIFIED 06/25/2011 132.0 PEDICULUS CAPITIS (HEAD LOUSE) 06/25/2011 132.0 PEDICULUS CAPITIS (HEAD LOUSE) 06/25/2011 132.0 PEDICULUS CAPITIS (HEAD LOUSE) 06/25/2011 TOMPKINS DO, RACHEL K 132.0 PEDICULUS CAPITIS (HEAD LOUSE) 06/25/2011 TOMPKINS DO, RACHEL K 132.0 PEDICULUS CAPITIS (HEAD LOUSE) 06/25/2011 BECK OWENS APRN 132.0 PEDICULUS CAPITIS (HEAD LOUSE) 06/25/2011 TOMPKINS DO, RACHEL K 132.0 PEDICULUS CAPITIS (HEAD LOUSE) 06/25/2011 TOMPKINS DO, RACHEL K 132.0 PEDICULUS CAPITIS (HEAD LOUSE) 06/25/2011 TOMPKINS DO, RACHEL K 132.0 PEDICULUS CAPITIS (HEAD LOUSE) 06/25/2011 TOMPKINS DO, RACHEL K 132.0 PEDICULUS CAPITIS (HEAD LOUSE) 06/25/2011 TOMPKINS DO, RACHEL K 132.0 PEDICULUS CAPITIS (HEAD LOUSE) 06/25/2011 TOMPKINS DO, RACHEL K 132.0 PEDICULUS CAPITIS (HEAD LOUSE) 06/25/2011 TOMPKINS DO, RACHEL K 132.0 PEDICULUS CAPITIS (HEAD LOUSE) 06/25/2011 TOMPKINS DO, RCAHEL K 132.0 PEDICULUS CAPITIS (HEAD LOUSE) 06/25/2011 TOMPKINS DO, RACHEL K 132.0 PEDICULUS CAPITIS (HEAD LOUSE) 06/25/2011 TOMPKINS DO, RACHEL K 132.0 PEDICULUS CAPITIS (HEAD LOUSE) 06/25/2011 BECK OWENS APRN 132.0 PEDICULUS CAPITIS (HEAD LOUSE) 06/25/2011 HILDA WOLF APRN 132.0 PEDICULUS CAPITIS (HEAD LOUSE) 06/25/2011 VIVIANA CURRY DDS 132.0 PEDICULUS CAPITIS (HEAD LOUSE) 06/25/2011 WHITE DDS, ARNOLD J 132.0 PEDICULUS CAPITIS (HEAD LOUSE) 06/25/2011 TOMPKINS DO, RACHEL K 132.0 PEDICULUS CAPITIS (HEAD LOUSE) 06/25/2011 TOMPKINS DO, RACHEL K 132.0 PEDICULUS CAPITIS (HEAD LOUSE) 06/25/2011 HILDA WOLF APRN 132.0 PEDICULUS CAPITIS (HEAD LOUSE) 06/25/2011 TOMPKINS DO, RACHEL K 132.0 PEDICULUS CAPITIS (HEAD LOUSE) 06/25/2011 TOMPKINS DO, RACHEL K 132.0 PEDICULUS CAPITIS (HEAD LOUSE) 07/02/2011 218.9 UTERINE NEOPLASM, BENIGN - LEIOMYOMA 07/02/2011 V12.54 TRANSIENT ISCHEMIC ATTACK (TIA) WITHOUT RESIDUAL DEFICITS 07/02/2011 218.9 UTERINE NEOPLASM, BENIGN - LEIOMYOMA 07/02/2011 V12.54 TRANSIENT ISCHEMIC ATTACK (TIA) WITHOUT RESIDUAL DEFICITS 07/02/2011 218.9 UTERINE NEOPLASM, BENIGN - LEIOMYOMA 07/02/2011 V12.54 TRANSIENT ISCHEMIC ATTACK (TIA) WITHOUT RESIDUAL DEFICITS 07/02/2011 TOMPKINS DO, RACHEL K 218.9 UTERINE NEOPLASM, BENIGN - LEIOMYOMA 07/02/2011 TOMPKINS DO, RACHEL K V12.54 TRANSIENT ISCHEMIC ATTACK (TIA) WITHOUT RESIDUAL DEFICITS 07/02/2011 TOMPKINS DO, RACHEL K 218.9 UTERINE NEOPLASM, BENIGN - LEIOMYOMA 07/02/2011 TOMPKINS DO, RACHEL K V12.54 TRANSIENT ISCHEMIC ATTACK (TIA) WITHOUT RESIDUAL DEFICITS 07/02/2011 BECK OWENS APRN E 218.9 UTERINE NEOPLASM, BENIGN - LEIOMYOMA 07/02/2011 BECK OWENS APRN E V12.54 TRANSIENT ISCHEMIC ATTACK (TIA) WITHOUT RESIDUAL DEFICITS 07/02/2011 TOMPKINS DO, RACHEL K 218.9 UTERINE NEOPLASM, BENIGN - LEIOMYOMA 07/02/2011 TOMPKINS DO, RACHEL K V12.54 TRANSIENT ISCHEMIC ATTACK (TIA) WITHOUT RESIDUAL DEFICITS 07/02/2011 TOMPKINS DO, RACHEL K 218.9 UTERINE NEOPLASM, BENIGN - LEIOMYOMA 07/02/2011 TOMPKINS DO, RACHEL K V12.54 TRANSIENT ISCHEMIC ATTACK (TIA) WITHOUT RESIDUAL DEFICITS 07/02/2011 TOMPKINS DO, RACHEL K 218.9 UTERINE NEOPLASM, BENIGN - LEIOMYOMA 07/02/2011 TOMPKINS DO, RACHEL K V12.54 TRANSIENT ISCHEMIC ATTACK (TIA) WITHOUT RESIDUAL DEFICITS 07/02/2011 TOMPKINS DO, RACHEL K 218.9 UTERINE NEOPLASM, BENIGN - LEIOMYOMA 07/02/2011 TOMPKINS DO, RACHEL K V12.54 TRANSIENT ISCHEMIC ATTACK (TIA) WITHOUT RESIDUAL DEFICITS 07/02/2011 TOMPKINS DO, RACHEL K 218.9 UTERINE NEOPLASM, BENIGN - LEIOMYOMA 07/02/2011 TOMPKINS DO, RACHEL K V12.54 TRANSIENT ISCHEMIC ATTACK (TIA) WITHOUT RESIDUAL DEFICITS 07/02/2011 TOMPKINS DO, RACHEL K 218.9 UTERINE NEOPLASM, BENIGN - LEIOMYOMA 07/02/2011 TOMPKINS DO, RACHEL K V12.54 TRANSIENT ISCHEMIC ATTACK (TIA) WITHOUT RESIDUAL DEFICITS 07/02/2011 TOMPKINS DO, RACHEL K 218.9 UTERINE NEOPLASM, BENIGN - LEIOMYOMA 07/02/2011 TOMPKINS DO, RACHEL K V12.54 TRANSIENT ISCHEMIC ATTACK (TIA) WITHOUT RESIDUAL DEFICITS 07/02/2011 TOMPKINS DO, RACHEL K 218.9 UTERINE NEOPLASM, BENIGN - LEIOMYOMA 07/02/2011 TOMPKINS DO, RACHEL K V12.54 TRANSIENT ISCHEMIC ATTACK (TIA) WITHOUT RESIDUAL DEFICITS 07/02/2011 TOMPKINS DO, RACHEL K 218.9 UTERINE NEOPLASM, BENIGN - LEIOMYOMA 07/02/2011 TOMPKINS DO, RACHEL K V12.54 TRANSIENT ISCHEMIC ATTACK (TIA) WITHOUT RESIDUAL DEFICITS 07/02/2011 TOMPKINS DO, RACHEL K 218.9 UTERINE NEOPLASM, BENIGN - LEIOMYOMA 07/02/2011 TOMPKINS DO, RACHEL K V12.54 TRANSIENT ISCHEMIC ATTACK (TIA) WITHOUT RESIDUAL DEFICITS 07/02/2011 BECK OWENS APRN E 218.9 UTERINE NEOPLASM, BENIGN - LEIOMYOMA 07/02/2011 BECK OWENS APRN E V12.54 TRANSIENT ISCHEMIC ATTACK (TIA) WITHOUT RESIDUAL DEFICITS 07/02/2011 HILDA WOLF APRN R 218.9 UTERINE NEOPLASM, BENIGN - LEIOMYOMA 07/02/2011 HILDA WOLF APRN R V12.54 TRANSIENT ISCHEMIC ATTACK (TIA) WITHOUT RESIDUAL DEFICITS 07/02/2011 VIVIANA CURRY DDS 218.9 UTERINE NEOPLASM, BENIGN - LEIOMYOMA 07/02/2011 VIVIANA CURRY DDS V12.54 TRANSIENT ISCHEMIC ATTACK (TIA) WITHOUT RESIDUAL DEFICITS 07/02/2011 JAMES PATELS, ARNOLD Byrd 218.9 UTERINE NEOPLASM, BENIGN - LEIOMYOMA 07/02/2011 WHITE DDS, ARNLOD J V12.54 TRANSIENT ISCHEMIC ATTACK (TIA) WITHOUT RESIDUAL DEFICITS 07/02/2011 RACHEL TOMPKINS DO K 218.9 UTERINE NEOPLASM, BENIGN - LEIOMYOMA 07/02/2011 TOMPKINS SPIKE WILKINSONA K V12.54 TRANSIENT ISCHEMIC ATTACK (TIA) WITHOUT RESIDUAL DEFICITS 07/02/2011 TOMPKINS SPIKE WILKINSONA K 218.9 UTERINE NEOPLASM, BENIGN - LEIOMYOMA 07/02/2011 RACHEL TOMPKINS DO K V12.54 TRANSIENT ISCHEMIC ATTACK (TIA) WITHOUT RESIDUAL DEFICITS 07/02/2011 HILDA WOLF APRN 218.9 UTERINE NEOPLASM, BENIGN - LEIOMYOMA 07/02/2011 HILDA WOLF APRN V12.54 TRANSIENT ISCHEMIC ATTACK (TIA) WITHOUT RESIDUAL DEFICITS 07/02/2011 RACHEL TOMPKINS DO K 218.9 UTERINE NEOPLASM, BENIGN - LEIOMYOMA 07/02/2011 RACHEL TOMPKINS DO K V12.54 TRANSIENT ISCHEMIC ATTACK (TIA) WITHOUT RESIDUAL DEFICITS 07/02/2011 RACHEL TOMPKINS DO K 218.9 UTERINE NEOPLASM, BENIGN - LEIOMYOMA 07/02/2011 TOMPKINS SPIKE WILKINSONA K V12.54 TRANSIENT ISCHEMIC ATTACK (TIA) WITHOUT RESIDUAL DEFICITS 07/16/2011 Ot 041.49 07/16/2011 Ot 218.9 07/16/2011 Ot 285.9 07/16/2011 Ot 305.1 07/16/2011 Ot 424.0 07/16/2011 Ot 599.0 07/16/2011 Ot 614.6 07/16/2011 Ot 620.2 07/16/2011 Ot 626.2 07/16/2011 Ot V12.54 07/19/2011 Ot 780.60 04/13/2012 722.2 DISPLACEMENT OF INTERVERTEBRAL DISC SITE UNSPECIFIED WITHOUT MYELOPATHY 04/13/2012 722.2 DISPLACEMENT OF INTERVERTEBRAL DISC SITE UNSPECIFIED WITHOUT MYELOPATHY 04/13/2012 722.2 DISPLACEMENT OF INTERVERTEBRAL DISC SITE UNSPECIFIED WITHOUT MYELOPATHY 04/13/2012 RACHEL TOMPKINS DO 722.2 DISPLACEMENT OF INTERVERTEBRAL DISC SITE UNSPECIFIED WITHOUT MYELOPATHY 04/13/2012 RACHEL TOMPKINS DO 722.2 DISPLACEMENT OF INTERVERTEBRAL DISC SITE UNSPECIFIED WITHOUT MYELOPATHY 04/13/2012 BECK OWENS APRN 722.2 DISPLACEMENT OF INTERVERTEBRAL DISC SITE UNSPECIFIED WITHOUT MYELOPATHY 04/13/2012 TOMPKINS DO, RACHEL K 722.2 DISPLACEMENT OF INTERVERTEBRAL DISC SITE UNSPECIFIED WITHOUT MYELOPATHY 04/13/2012 TOMPKINS DO, RACHEL K 722.2 DISPLACEMENT OF INTERVERTEBRAL DISC SITE UNSPECIFIED WITHOUT MYELOPATHY 04/13/2012 TOMPKINS DO, RACHEL K 722.2 DISPLACEMENT OF INTERVERTEBRAL DISC SITE UNSPECIFIED WITHOUT MYELOPATHY 04/13/2012 TOMPKINS DO, RACHEL K 722.2 DISPLACEMENT OF INTERVERTEBRAL DISC SITE UNSPECIFIED WITHOUT MYELOPATHY 04/13/2012 TOMPKINS DO, RACHEL K 722.2 DISPLACEMENT OF INTERVERTEBRAL DISC SITE UNSPECIFIED WITHOUT MYELOPATHY 04/13/2012 TOMPKINS DO, RACHEL K 722.2 DISPLACEMENT OF INTERVERTEBRAL DISC SITE UNSPECIFIED WITHOUT MYELOPATHY 04/13/2012 TOMPKINS DO, RACHEL K 722.2 DISPLACEMENT OF INTERVERTEBRAL DISC SITE UNSPECIFIED WITHOUT MYELOPATHY 04/13/2012 TOMPKINS DO, RACHEL K 722.2 DISPLACEMENT OF INTERVERTEBRAL DISC SITE UNSPECIFIED WITHOUT MYELOPATHY 04/13/2012 TOMPKINS DO, RACHEL K 722.2 DISPLACEMENT OF INTERVERTEBRAL DISC SITE UNSPECIFIED WITHOUT MYELOPATHY 04/13/2012 TOMPKINS DO, RACHEL K 722.2 DISPLACEMENT OF INTERVERTEBRAL DISC SITE UNSPECIFIED WITHOUT MYELOPATHY 04/13/2012 BECK OWENS APRN 722.2 DISPLACEMENT OF INTERVERTEBRAL DISC SITE UNSPECIFIED WITHOUT MYELOPATHY 04/13/2012 HILDA WOLF APRN 722.2 DISPLACEMENT OF INTERVERTEBRAL DISC SITE UNSPECIFIED WITHOUT MYELOPATHY 04/13/2012 VIVIANA CURRY DDS 722.2 DISPLACEMENT OF INTERVERTEBRAL DISC SITE UNSPECIFIED WITHOUT MYELOPATHY 04/13/2012 ARNOLD RAMIREZ DDS 722.2 DISPLACEMENT OF INTERVERTEBRAL DISC SITE UNSPECIFIED WITHOUT MYELOPATHY 04/13/2012 TOMPKINS DO, RACHEL K 722.2 DISPLACEMENT OF INTERVERTEBRAL DISC SITE UNSPECIFIED WITHOUT MYELOPATHY 04/13/2012 TOMPKINS DO, RACHEL K 722.2 DISPLACEMENT OF INTERVERTEBRAL DISC SITE UNSPECIFIED WITHOUT MYELOPATHY 04/13/2012 HILDA WOLF APRN 722.2 DISPLACEMENT OF INTERVERTEBRAL DISC SITE UNSPECIFIED WITHOUT MYELOPATHY 04/13/2012 TOMPKINS DO, RACHEL K 722.2 DISPLACEMENT OF INTERVERTEBRAL DISC SITE UNSPECIFIED WITHOUT MYELOPATHY 04/13/2012 TOMPKINS DO, RACHEL K 722.2 DISPLACEMENT OF INTERVERTEBRAL DISC SITE UNSPECIFIED WITHOUT MYELOPATHY 01/02/2013 380.10 OTITIS EXTERNA LEFT 01/02/2013 380.10 OTITIS EXTERNA LEFT 01/02/2013 TOMPKINS DO, RACHEL K 380.10 OTITIS EXTERNA LEFT 01/02/2013 TOMPKINS DO, RACHEL K 380.10 OTITIS EXTERNA LEFT 01/02/2013 BECK OWENS APRN 380.10 OTITIS EXTERNA LEFT 01/02/2013 TOMPKINS DO, RACHEL K 380.10 OTITIS EXTERNA LEFT 01/02/2013 TOMPKINS DO, RACHEL K 380.10 OTITIS EXTERNA LEFT 01/02/2013 TOMPKINS DO, RACHEL K 380.10 OTITIS EXTERNA LEFT 01/02/2013 TOMPKINS DO, RACHEL K 380.10 OTITIS EXTERNA LEFT 01/02/2013 TOMPKINS DO, RACHEL K 380.10 OTITIS EXTERNA LEFT 01/02/2013 TOMPKINS DO, RACHEL K 380.10 OTITIS EXTERNA LEFT 01/02/2013 TOMPKINS DO, RACHEL K 380.10 OTITIS EXTERNA LEFT 01/02/2013 TOMPKINS DO, RACHEL K 380.10 OTITIS EXTERNA LEFT 01/02/2013 TOMPKINS DO, RACHEL K 380.10 OTITIS EXTERNA LEFT 01/02/2013 TOMPKINS DO, RACHEL K 380.10 OTITIS EXTERNA LEFT 01/02/2013 BECK OWENS APRN 380.10 OTITIS EXTERNA LEFT 01/02/2013 HILDA WOLF APRN 380.10 OTITIS EXTERNA LEFT 01/02/2013 CURRY DDSVIVIANA 380.10 OTITIS EXTERNA LEFT 01/02/2013 JAMES DDS, ARNOLD Byrd 380.10 OTITIS EXTERNA LEFT 01/02/2013 TOMPKINS DO, RACHEL K 380.10 OTITIS EXTERNA LEFT 01/02/2013 TOMPKINS DO, RACHEL K 380.10 OTITIS EXTERNA LEFT 01/02/2013 HILDA WOLF APRN 380.10 OTITIS EXTERNA LEFT 01/02/2013 TOMPKINS DO, RACHEL K 380.10 OTITIS EXTERNA LEFT 01/02/2013 TOMPKINS DO, RACHEL K 380.10 OTITIS EXTERNA LEFT 04/09/2013 BRIAN GARCIA DO Ot 723.1 CERVICALGIA 04/09/2013 BRINA GARCIA DO Ot 780.60 FEVER, UNSPECIFIED 04/09/2013 BRIAN GARCIA DO Ot 784.0 HEADACHE 07/07/2013 RACHEL TOMPKINS DO K 847.2 SPRAIN LUMBAR REGION 07/07/2013 TOMPKINS DO, RACHEL K 847.2 SPRAIN LUMBAR REGION 07/07/2013 BECK OWENS APRN E 847.2 SPRAIN LUMBAR REGION 07/07/2013 TOMPKINS DO, RACHEL K 847.2 SPRAIN LUMBAR REGION 07/07/2013 TOMPKINS DO, RACHEL K 847.2 SPRAIN LUMBAR REGION 07/07/2013 TOMPKINS DO, RACHEL K 847.2 SPRAIN LUMBAR REGION 07/07/2013 TOMPKINS DO, RACHEL K 847.2 SPRAIN LUMBAR REGION 07/07/2013 TOMPKINS DO, RACHEL K 847.2 SPRAIN LUMBAR REGION 07/07/2013 TOMPKINS DO, RACHEL K 847.2 SPRAIN LUMBAR REGION 07/07/2013 TOMPKINS DO, RACHEL K 847.2 SPRAIN LUMBAR REGION 07/07/2013 TOMPKINS DO, RACHEL K 847.2 SPRAIN LUMBAR REGION 07/07/2013 TOMPKINS DO, RACHEL K 847.2 SPRAIN LUMBAR REGION 07/07/2013 TOMPKINS DO, RACHEL K 847.2 SPRAIN LUMBAR REGION 07/07/2013 BECK OWENS APRN E 847.2 SPRAIN LUMBAR REGION 07/07/2013 HILDA WOLF APRN 847.2 SPRAIN LUMBAR REGION 07/07/2013 VIVIANA CURRY DDS 847.2 SPRAIN LUMBAR REGION 07/07/2013 JAMES PATELSARNOLD 847.2 SPRAIN LUMBAR REGION 07/07/2013 TOMPKINS DO, RACHEL K 847.2 SPRAIN LUMBAR REGION 07/07/2013 TOMPKINS DO, RACHEL K 847.2 SPRAIN LUMBAR REGION 07/07/2013 HILDA WOLF APRN 847.2 SPRAIN LUMBAR REGION 07/07/2013 TOMPKINS DO, RACHEL K 847.2 SPRAIN LUMBAR REGION 07/07/2013 TOMPKINS DO, RACHEL K 847.2 SPRAIN LUMBAR REGION 10/11/2013 BECK OWENS APRN E 057.9 VIRAL EXANTHEM UNSPECIFIED 10/11/2013 TOMPKINS DO, RACHEL K 057.9 VIRAL EXANTHEM UNSPECIFIED 10/11/2013 TOMPKINS DO, RACHEL K 057.9 VIRAL EXANTHEM UNSPECIFIED 10/11/2013 TOMPKINS DO, RACHEL K 057.9 VIRAL EXANTHEM UNSPECIFIED 10/11/2013 TOMPKINS DO, RACHEL K 057.9 VIRAL EXANTHEM UNSPECIFIED 10/11/2013 TOMPKINS DO, RACHEL K 057.9 VIRAL EXANTHEM UNSPECIFIED 10/11/2013 TOMPKINS DO, RACHEL K 057.9 VIRAL EXANTHEM UNSPECIFIED 10/11/2013 TOMPKINS DO, RACHEL K 057.9 VIRAL EXANTHEM UNSPECIFIED 10/11/2013 TOMPKINS DO, RACHEL K 057.9 VIRAL EXANTHEM UNSPECIFIED 10/11/2013 TOMPKINS DO, RACHEL K 057.9 VIRAL EXANTHEM UNSPECIFIED 10/11/2013 TOMPKINS DO, RACHEL K 057.9 VIRAL EXANTHEM UNSPECIFIED 10/11/2013 BECK OWENS APRN 057.9 VIRAL EXANTHEM UNSPECIFIED 10/11/2013 HILDA WOLF APRN 057.9 VIRAL EXANTHEM UNSPECIFIED 10/11/2013 PATRICIO DDS, VIVIANA 057.9 VIRAL EXANTHEM UNSPECIFIED 10/11/2013 JAMES DDS, ARNOLD Byrd 057.9 VIRAL EXANTHEM UNSPECIFIED 10/11/2013 TOMPKINS DO, RACHEL K 057.9 VIRAL EXANTHEM UNSPECIFIED 10/11/2013 TOMPKINS DO, RACHEL K 057.9 VIRAL EXANTHEM UNSPECIFIED 10/11/2013 HILDA WOLF APRN 057.9 VIRAL EXANTHEM UNSPECIFIED 10/11/2013 TOMPKINS DO, RACHEL K 057.9 VIRAL EXANTHEM UNSPECIFIED 10/11/2013 TOMPKINS DO, RACHEL K 057.9 VIRAL EXANTHEM UNSPECIFIED 10/13/2013 BECK OWENS APRN 780.8 GENERALIZED HYPERHIDROSIS 10/13/2013 TOMPKINS DO, RACHEL K 780.8 GENERALIZED HYPERHIDROSIS 10/13/2013 TOMPKINS DO, RACHEL K 780.8 GENERALIZED HYPERHIDROSIS 10/13/2013 TOMPKINS DO, RACHEL K 780.8 GENERALIZED HYPERHIDROSIS 10/13/2013 TOMPKINS DO, RACHEL K 780.8 GENERALIZED HYPERHIDROSIS 10/13/2013 TOMPKINS DO, RACHEL K 780.8 GENERALIZED HYPERHIDROSIS 10/13/2013 TOMPKINS DO, RACHEL K 780.8 GENERALIZED HYPERHIDROSIS 10/13/2013 TOMPKINS DO, RACHEL K 780.8 GENERALIZED HYPERHIDROSIS 10/13/2013 TOMPKINS DO, RACHEL K 780.8 GENERALIZED HYPERHIDROSIS 10/13/2013 TOMPKINS DO, RACHEL K 780.8 GENERALIZED HYPERHIDROSIS 10/13/2013 TOMPKINS DO, RACHEL K 780.8 GENERALIZED HYPERHIDROSIS 10/13/2013 BECK OWENS APRN 780.8 GENERALIZED HYPERHIDROSIS 10/13/2013 HILDA WOLF APRN 780.8 GENERALIZED HYPERHIDROSIS 10/13/2013 CURRY DDS, VIVIANA 780.8 GENERALIZED HYPERHIDROSIS 10/13/2013 WHITE DDS, ARNOLD Byrd 780.8 GENERALIZED HYPERHIDROSIS 10/13/2013 TOMPKINS DO, RACHEL K 780.8 GENERALIZED HYPERHIDROSIS 10/13/2013 TOMPKINS DO, RACHEL K 780.8 GENERALIZED HYPERHIDROSIS 10/13/2013 HILDA WOLF APRN 780.8 GENERALIZED HYPERHIDROSIS 10/13/2013 TOMPKINS DO, RACHEL K 780.8 GENERALIZED HYPERHIDROSIS 10/13/2013 TOMPKINS DO, RACHEL K 780.8 GENERALIZED HYPERHIDROSIS 11/27/2013 TOMPKINS DO, RACHEL K 386.10 VERTIGO, PERIPHERAL UNSPECIFIED 11/27/2013 TOMPKINS DO, RACHEL K 524.60 TEMPOROMANDIBULAR JOINT DISORDERS UNSPECIFIED 11/27/2013 TOMPKINS DO, RACHEL K 386.10 VERTIGO, PERIPHERAL UNSPECIFIED 11/27/2013 TOMPKINS DO, RACHEL K 524.60 TEMPOROMANDIBULAR JOINT DISORDERS UNSPECIFIED 11/27/2013 TOMPKINS DO, RACHEL K 386.10 VERTIGO, PERIPHERAL UNSPECIFIED 11/27/2013 TOMPKINS DO, RACHEL K 524.60 TEMPOROMANDIBULAR JOINT DISORDERS UNSPECIFIED 11/27/2013 TOMPKINS DO, RACHEL K 386.10 VERTIGO, PERIPHERAL UNSPECIFIED 11/27/2013 TOMPKINS DO, RACHEL K 524.60 TEMPOROMANDIBULAR JOINT DISORDERS UNSPECIFIED 11/27/2013 TOMPKINS DO, RACHEL K 386.10 VERTIGO, PERIPHERAL UNSPECIFIED 11/27/2013 TOMPKINS DO, RACHEL K 524.60 TEMPOROMANDIBULAR JOINT DISORDERS UNSPECIFIED 11/27/2013 TOMPKINS DO, RACHEL K 386.10 VERTIGO, PERIPHERAL UNSPECIFIED 11/27/2013 TOMPKINS DO, RACHEL K 524.60 TEMPOROMANDIBULAR JOINT DISORDERS UNSPECIFIED 11/27/2013 TOMPKINS DO, RACHEL K 386.10 VERTIGO, PERIPHERAL UNSPECIFIED 11/27/2013 TOMPKINS DO, RACHEL K 524.60 TEMPOROMANDIBULAR JOINT DISORDERS UNSPECIFIED 11/27/2013 TOMPKINS DO, RACHEL K 386.10 VERTIGO, PERIPHERAL UNSPECIFIED 11/27/2013 TOMPKINS DO, RACHEL K 524.60 TEMPOROMANDIBULAR JOINT DISORDERS UNSPECIFIED 11/27/2013 TOMPKINS DO, RACHEL K 386.10 VERTIGO, PERIPHERAL UNSPECIFIED 11/27/2013 TOMPKINS DO, RACHEL K 524.60 TEMPOROMANDIBULAR JOINT DISORDERS UNSPECIFIED 11/27/2013 TOMPKINS DO, RACHEL K 386.10 VERTIGO, PERIPHERAL UNSPECIFIED 11/27/2013 TOMPKINS DO, RACHEL K 524.60 TEMPOROMANDIBULAR JOINT DISORDERS UNSPECIFIED 11/27/2013 BECK OWENS APRN 386.10 VERTIGO, PERIPHERAL UNSPECIFIED 11/27/2013 BECK OWENS APRN 524.60 TEMPOROMANDIBULAR JOINT DISORDERS UNSPECIFIED 11/27/2013 HILDA WOLF APRN 386.10 VERTIGO, PERIPHERAL UNSPECIFIED 11/27/2013 HILDA WOLF APRN 524.60 TEMPOROMANDIBULAR JOINT DISORDERS UNSPECIFIED 11/27/2013 VIVIANA CURRY DDS 386.10 VERTIGO, PERIPHERAL UNSPECIFIED 11/27/2013 VIVIANA CURRY DDS 524.60 TEMPOROMANDIBULAR JOINT DISORDERS UNSPECIFIED 11/27/2013 ARNOLD RAMIREZ DDS 386.10 VERTIGO, PERIPHERAL UNSPECIFIED 11/27/2013 JAMES PATELSARNOLD 524.60 TEMPOROMANDIBULAR JOINT DISORDERS UNSPECIFIED 11/27/2013 TOMPKINS DO, RACHEL K 386.10 VERTIGO, PERIPHERAL UNSPECIFIED 11/27/2013 TOMPKINS DOSPIKEA K 524.60 TEMPOROMANDIBULAR JOINT DISORDERS UNSPECIFIED 11/27/2013 TOMPKINS DO, RACHEL K 386.10 VERTIGO, PERIPHERAL UNSPECIFIED 11/27/2013 TOMPKINS DO, RACHEL K 524.60 TEMPOROMANDIBULAR JOINT DISORDERS UNSPECIFIED 11/27/2013 WOLF CORRECTIVE THERAPY AIDE, HILDA R 386.10 VERTIGO, PERIPHERAL UNSPECIFIED 11/27/2013 LUCIANO CLAUDIOHILDA R 524.60 TEMPOROMANDIBULAR JOINT DISORDERS UNSPECIFIED 11/27/2013 TOMPKINS DO, RACHEL K 386.10 VERTIGO, PERIPHERAL UNSPECIFIED 11/27/2013 TOMPKINS DO, RACHEL K 524.60 TEMPOROMANDIBULAR JOINT DISORDERS UNSPECIFIED 11/27/2013 TOMPKINS DO, RACHEL K 386.10 VERTIGO, PERIPHERAL UNSPECIFIED 11/27/2013 TOMPKINS DO, RACHEL K 524.60 TEMPOROMANDIBULAR JOINT DISORDERS UNSPECIFIED 01/12/2014 TOMPKINS DO, RACHEL K 307.81 TENSION HEADACHE 01/12/2014 TOMPKINS DO, RACHEL K 782.1 RASH AND OTHER NONSPECIFIC SKIN ERUPTION 01/12/2014 TOMPKINS DO, RACHEL K 995.3 ALLERGY UNSPECIFIED NOT ELSEWHERE CLASSIFIED 01/12/2014 TOMPKINS DO, RACHEL K 307.81 TENSION HEADACHE 01/12/2014 TOMPKINS DO, RACHEL K 782.1 skin: a rash [as Sx] 01/12/2014 TOMPKINS DO RACHEL K 995.3 ALLERGY UNSPECIFIED NOT ELSEWHERE CLASSIFIED 01/12/2014 TOMPKINS DO, RACHEL K 307.81 TENSION HEADACHE 01/12/2014 TOMPKINS DO, RACHEL K 782.1 skin: a rash [as Sx] 01/12/2014 TOMPKINS DO, RACHEL K 995.3 ALLERGY UNSPECIFIED NOT ELSEWHERE CLASSIFIED 01/12/2014 TOMPKINS DO, RACHEL K 307.81 TENSION HEADACHE 01/12/2014 TOMPKINS DO, RACHEL K 782.1 skin: a rash [as Sx] 01/12/2014 TOMPKINS DO, RACHEL K 995.3 ALLERGY UNSPECIFIED NOT ELSEWHERE CLASSIFIED 01/12/2014 TOMPKINS DO, RACHEL K 307.81 TENSION HEADACHE 01/12/2014 TOMPKINS DO, RACHEL K 782.1 skin: a rash [as Sx] 01/12/2014 TOMPKINS DO, RACHEL K 995.3 ALLERGY UNSPECIFIED NOT ELSEWHERE CLASSIFIED 01/12/2014 TOMPKINS DO, RACHEL K 307.81 TENSION HEADACHE 01/12/2014 TOMPKINS DO, RACHEL K 782.1 skin: a rash [as Sx] 01/12/2014 TOMPKINS DO, RACHEL K 995.3 ALLERGY UNSPECIFIED NOT ELSEWHERE CLASSIFIED 01/12/2014 TOMPKINS DO, RACHEL K 307.81 TENSION HEADACHE 01/12/2014 TOMPKINS DO, RACHEL K 782.1 skin: a rash [as Sx] 01/12/2014 TOMPKINS DO, RACHEL K 995.3 ALLERGY UNSPECIFIED NOT ELSEWHERE CLASSIFIED 01/12/2014 MARGUERITEBECK PEÑA APRN E 307.81 TENSION HEADACHE 01/12/2014 MARGUERITEBECK PEÑA APRN E 782.1 skin: a rash [as Sx] 01/12/2014 BECK OWENS APRN E 995.3 ALLERGY UNSPECIFIED NOT ELSEWHERE CLASSIFIED 01/12/2014 HILDA WOLF APRN 307.81 TENSION HEADACHE 01/12/2014 HILDA WOLF APRN R 782.1 skin: a rash [as Sx] 01/12/2014 HILDA WOLF APRN 995.3 ALLERGY UNSPECIFIED NOT ELSEWHERE CLASSIFIED 01/12/2014 PATRICIO PATELSVIVIANA 307.81 TENSION HEADACHE 01/12/2014 CURRYINA PATELSVIVIANA 782.1 skin: a rash [as Sx] 01/12/2014 VIVIANA CURRY DDS 995.3 ALLERGY UNSPECIFIED NOT ELSEWHERE CLASSIFIED 01/12/2014 WHITE DDS, ARNOLD J 307.81 TENSION HEADACHE 01/12/2014 WHITE DDS, ARNOLD J 782.1 skin: a rash [as Sx] 01/12/2014 WHITE DDS, ARNOLD J 995.3 ALLERGY UNSPECIFIED NOT ELSEWHERE CLASSIFIED 01/12/2014 TOMPKINS DO, RACHEL K 307.81 TENSION HEADACHE 01/12/2014 TOMPKINS DO, RACHEL K 782.1 skin: a rash [as Sx] 01/12/2014 TOMPKINS DO, RACHEL K 995.3 ALLERGY UNSPECIFIED NOT ELSEWHERE CLASSIFIED 01/12/2014 TOMPKINS DO, RACHEL K 307.81 TENSION HEADACHE 01/12/2014 TOMPKINS DO, RACHEL K 782.1 skin: a rash [as Sx] 01/12/2014 TOMPKINS DO, RACHEL K 995.3 ALLERGY UNSPECIFIED NOT ELSEWHERE CLASSIFIED 01/12/2014 HILDA WOLF APRN R 307.81 TENSION HEADACHE 01/12/2014 HILDA WOLF APRN 782.1 skin: a rash [as Sx] 01/12/2014 HILDA WOLF APRN 995.3 ALLERGY UNSPECIFIED NOT ELSEWHERE CLASSIFIED 01/12/2014 TOMPKINS DO, RACHEL K 307.81 TENSION HEADACHE 01/12/2014 TOMPKINS DO, RACHEL K 782.1 skin: a rash [as Sx] 01/12/2014 TOMPKINS DO, RACHEL K 995.3 ALLERGY UNSPECIFIED NOT ELSEWHERE CLASSIFIED 01/12/2014 TOMPKINS DO, RACHEL K 307.81 TENSION HEADACHE 01/12/2014 TOMPKINS DO, RACHEL K 782.1 skin: a rash [as Sx] 01/12/2014 TOMPKINS DO, RACHEL K 995.3 ALLERGY UNSPECIFIED NOT ELSEWHERE CLASSIFIED 01/26/2014 TOMPKINS DO, RACHEL K 708.9 UNSPECIFIED URTICARIA 01/26/2014 TOMPKINS DO, RACHEL K 787.3 FLATULENCE ERUCTATION AND GAS PAIN 01/26/2014 TOMPKINS DO, RACHEL K 787.91 DIARRHEA 01/26/2014 TOMPKINS DO, RACHEL K 708.9 UNSPECIFIED URTICARIA 01/26/2014 TOMPKINS DO, RACHEL K 787.3 FLATULENCE ERUCTATION AND GAS PAIN 01/26/2014 TOMPKINS DO, RACHEL K 787.91 DIARRHEA 01/26/2014 TOMPKINS DO, RACHEL K 708.9 UNSPECIFIED URTICARIA 01/26/2014 TOMPKINS DO, RACHEL K 787.3 FLATULENCE ERUCTATION AND GAS PAIN 01/26/2014 TOMPKINS DO, RACHEL K 787.91 DIARRHEA 01/26/2014 TOMPKINS DO, RACHEL K 708.9 UNSPECIFIED URTICARIA 01/26/2014 TOMPKINS DO, RACHEL K 787.3 FLATULENCE ERUCTATION AND GAS PAIN 01/26/2014 TOMPKINS DO, RACHEL K 787.91 DIARRHEA 01/26/2014 BECK OWENS APRN E 708.9 UNSPECIFIED URTICARIA 01/26/2014 LING OWENS APRNE E 787.3 FLATULENCE ERUCTATION AND GAS PAIN 01/26/2014 LING OWENS APRNE E 787.91 DIARRHEA 01/26/2014 HILDA WOLF APRN 708.9 UNSPECIFIED URTICARIA 01/26/2014 HILDA WOLF APRN 787.3 FLATULENCE ERUCTATION AND GAS PAIN 01/26/2014 HILDA WOLF APRN 787.91 DIARRHEA 01/26/2014 CURRY DDS, VIVIANA 708.9 UNSPECIFIED URTICARIA 01/26/2014 CURRY DDS, VIVIANA 787.3 FLATULENCE ERUCTATION AND GAS PAIN 01/26/2014 CURRY DDS, VIVIANA 787.91 DIARRHEA 01/26/2014 WHITE DDS, ARNOLD J 708.9 UNSPECIFIED URTICARIA 01/26/2014 WHITE DDS, ARNOLD J 787.3 FLATULENCE ERUCTATION AND GAS PAIN 01/26/2014 WHITE DDS, ARNOLD J 787.91 DIARRHEA 01/26/2014 TOMPKINS DO, RACHEL K 708.9 UNSPECIFIED URTICARIA 01/26/2014 TOMPKINS DO, RACHEL K 787.3 FLATULENCE ERUCTATION AND GAS PAIN 01/26/2014 TOMPKINS DO, RACHEL K 787.91 DIARRHEA 01/26/2014 TOMPKINS DO, RACHEL K 708.9 UNSPECIFIED URTICARIA 01/26/2014 TOMPKINS DO, RACHEL K 787.3 FLATULENCE ERUCTATION AND GAS PAIN 01/26/2014 TOMPKINS DO, RACHEL K 787.91 DIARRHEA 01/26/2014 HILDA WOLF APRN 708.9 UNSPECIFIED URTICARIA 01/26/2014 HILDA WOLF APRN 787.3 FLATULENCE ERUCTATION AND GAS PAIN 01/26/2014 HILDA WOLF APRN 787.91 DIARRHEA 01/26/2014 TOMPKINS DO, RACHEL K 708.9 UNSPECIFIED URTICARIA 01/26/2014 TOMPKINS DO, RACHEL K 787.3 FLATULENCE ERUCTATION AND GAS PAIN 01/26/2014 TOMPKINS DO, RACHEL K 787.91 DIARRHEA 01/26/2014 TOMPKINS DO, RACHEL K 708.9 UNSPECIFIED URTICARIA 01/26/2014 TOMPKINS DO, RACHEL K 787.3 FLATULENCE ERUCTATION AND GAS PAIN 01/26/2014 TOMPKINS DO, RACHEL K 787.91 DIARRHEA 02/19/2014 TOMPKINS DO, RACHEL K 786.50 CHEST PAIN 02/19/2014 TOMPKINS DO, RACHEL K 786.50 CHEST PAIN 02/19/2014 BECK OWENS APRN 786.50 CHEST PAIN 02/19/2014 HILDA WOLF APRN 786.50 CHEST PAIN 02/19/2014 CURRY DDS, VIVIANA 786.50 CHEST PAIN 02/19/2014 WHITE DDS, ARNOLD J 786.50 CHEST PAIN 02/19/2014 TOMPKINS DO, RACHEL K 786.50 CHEST PAIN 02/19/2014 TOMPKINS DO, RACHEL K 786.50 CHEST PAIN 02/19/2014 HILDA WOLF APRN 786.50 CHEST PAIN 02/19/2014 TOMPKINS DO, RACHEL K 786.50 CHEST PAIN 02/19/2014 TOMPKINS DO, RACHEL K 786.50 CHEST PAIN 07/25/2014 CURRY DDS, VIVIANA 522.0 PULPITIS 07/25/2014 WHITE DDS, ARNOLD J 522.0 PULPITIS 07/25/2014 TOMPKINS DO, RACHEL K 522.0 PULPITIS 07/25/2014 TOMPKINS DO, RACHEL K 522.0 PULPITIS 07/25/2014 HILDA WOLF APRN 522.0 PULPITIS 07/25/2014 TOMPKINS DO, RACHEL K 522.0 PULPITIS 07/25/2014 TOMPKINS DO, RACHEL K 522.0 PULPITIS 08/02/2014 WHITE DDS, ARNOLD J 995.29 ADVERSE EFFECT OF DRUG MEDICINAL 08/02/2014 TOMPKINS DO, RACHEL K 995.29 ADVERSE EFFECT OF DRUG MEDICINAL 08/02/2014 TOMPKINS DO, RACHEL K 995.29 ADVERSE EFFECT OF DRUG MEDICINAL 08/02/2014 HILDA WOLF APRN 995.29 ADVERSE EFFECT OF DRUG MEDICINAL 08/02/2014 TOMPKINS DO, RACHEL K 995.29 ADVERSE EFFECT OF DRUG MEDICINAL 08/02/2014 TOMPKINS DO, RACHEL K 995.29 ADVERSE EFFECT OF DRUG MEDICINAL 10/18/2014 HILDA WOLF APRN 723.1 CERVICALGIA 10/18/2014 TOMPKINS DOSPIKEA K 723.1 CERVICALGIA 10/18/2014 TOMPKINS SPIKE WILKINSONA K 723.1 CERVICALGIA 10/29/2014 HILDA WOLF APRN 723.1 CERVICALGIA 10/29/2014 TOMPKINS DO RACHEL K 723.1 CERVICALGIA 10/29/2014 TOMPKINS DO RACHEL K 723.1 CERVICALGIA 10/29/2014 Ot 722.52 10/29/2014 Ot 789.00 10/29/2014 Ot 218.9 10/29/2014 Ot 285.9 10/29/2014 Ot 625.8 10/29/2014 Ot 218.9 10/29/2014 Ot 625.8 10/29/2014 Ot 791.9 10/29/2014 Ot V72.63 10/29/2014 Ot V74.8 10/29/2014 Ot 397.0 10/29/2014 Ot 424.0 10/29/2014 Ot V12.54 10/29/2014 Ot 724.2 10/29/2014 Ot 722.52 10/29/2014 HILDA WOLF CFNP Ot 386.19 10/29/2014 HILDA WOLF CFNP Ot 478.19 10/29/2014 SONG SANTOS APRN Ot 784.0 HEADACHE 11/06/2014 Ot 722.52 11/06/2014 Ot 789.00 11/06/2014 Ot 218.9 11/06/2014 Ot 285.9 11/06/2014 Ot 625.8 11/06/2014 Ot 218.9 11/06/2014 Ot 625.8 11/06/2014 Ot 791.9 11/06/2014 Ot V72.63 11/06/2014 Ot V74.8 11/06/2014 Ot 397.0 11/06/2014 Ot 424.0 11/06/2014 Ot V12.54 11/06/2014 Ot 724.2 11/06/2014 Ot 722.52 11/06/2014 HILDA WOLF CFNP Ot 386.19 11/06/2014 HILDA WOLF CFNP Ot 478.19 11/22/2014 HILDA WOLF CFNP Ot 721.0 11/22/2014 HILDA WOLF CFNP Ot 721.3 09/06/2017 Ot 724.2 LUMBAGO 09/06/2017 Ot 722.52 LUMB/LUMBOSAC DISC DEGEN 09/06/2017 HILDA WOLF CFNP Ot 386.19 PERIPHERAL VERTIGO NEC 09/06/2017 HILDA WOLF CFNP Ot 478.19 OTHER DISEASE OF NASAL CAVITY AND SINUSE 09/06/2017 HILDA WOLF CFNP Ot 721.0 CERVICAL SPONDYLOSIS 09/06/2017 HILDA WOLF CFNP Ot 721.3 LUMBOSACRAL SPONDYLOSIS 01/21/2018 HILDA WOLF CFNP Ot 386.19 PERIPHERAL VERTIGO NEC 01/21/2018 HILDA WOLF CFNP Ot 478.19 OTHER DISEASE OF NASAL CAVITY AND SINUSE 01/21/2018 HILDA WOFL CFNP Ot 721.0 CERVICAL SPONDYLOSIS 01/21/2018 HILDA WOLF CFNP Ot 721.3 LUMBOSACRAL SPONDYLOSIS 04/14/2018 IHLDA WOLF CFNP Ot 386.19 PERIPHERAL VERTIGO NEC 04/14/2018 HILDA WOLF R CFNP Ot 478.19 OTHER DISEASE OF NASAL CAVITY AND SINUSE 04/14/2018 HILDA WOLF CFNP Ot 721.0 CERVICAL SPONDYLOSIS 04/14/2018 HILDA WOLF CFNP Ot 721.3 LUMBOSACRAL SPONDYLOSIS 05/24/2018 BRANDYN ENRIQUEZ, RICHI Marcos Ot M47.26 OTHER SPONDYLOSIS WITH RADICULOPATHY, MARITZA 05/24/2018 BRANDYN ENRIQUEZ, RICHI Marcos Ot M51.16 INTERVERTEBRAL DISC DISORDERS W RADICULO 05/24/2018 BRANDYN ENRIQUEZ, RICHI Marcos Ot M99.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 07/20/2018 HILDA WOLF CFNP Ot R22.0 LOCALIZED SWELLING, MASS AND LUMP, HEAD 08/12/2018 HILDA WOLF CFNP Ot R22.0 LOCALIZED SWELLING, MASS AND LUMP, HEAD 08/18/2018 HILDA WOLF CFNP Ot R22.0 LOCALIZED SWELLING, MASS AND LUMP, HEAD Procedures Code [place] [id number] STREP A (IN-HOUSE) 09/08/2012 29444 INFLUENZA A & B (IN-HOUSE) 09/08/2012 85617 STREP A (IN-HOUSE) 08/30/2013 51861 INFLUENZA A & B (IN-HOUSE) 10/13/2013 16832 MRI HEAD W/ AND W/OUT CONTRAST 11/30/2013 OtolarHilda Carr 11/30/2013 12426 THERAPUTIC INJ SQ/IM 01/12/2014 J2550 PROMETHAZINE HCL INJECTION 01/12/2014 J0702 BETAMETHASONE ACET&SOD PHOSP 01/12/2014 50584 TRIGGER POINT INJ/1-2 MUS 01/12/2014 44795 ROUTINE VENIPUNCTURE 01/26/2014 68142 CMP 01/26/2014 31927 TSH 01/26/2014 63411 CBC 01/26/2014 68956 SED/ESR RATE RML 01/26/2014 96648 CRP 01/26/2014 02146 RA FACTOR 01/26/2014 ANAANA AYSHA ANALYZER (SCREEN) 01/26/2014 14672 ROUTINE VENIPUNCTURE 02/19/2014 27312 EKG, TRACING (IN-HOUSE) 02/19/2014 57664 LDH 02/19/2014 72197 CBC 02/19/2014 2542588 GFR CALC (RESULT ONLY) 02/19/2014 80805 CMP 02/19/2014 48318 TROPONIN, QUANT 02/19/2014 43164 CK-MB 02/20/2014 56595 TRIGGER POINT INJ/1-2 MUS 04/09/2014 62373 MRI SPINE (CERVICAL) W/O CONTRAST 11/06/2014 25757 MRI SPINE (LUMBAR) W/O CONTRAST 11/06/2014 Results Test Result Range CULTURE, URINE - 07/01/17 14:32 CULTURE, URINE, ROUTINE SEE NOTE NRG TSH - 08/31/17 10:08 TSH 11.36 mIU/L NRG TSH - 04/19/18 15:16 TSH 6.75 mIU/L NRG TSH - 07/07/18 16:00 TSH 4.75 mIU/L NRG PDM - 09 PANEL (PROFILE 1) - 12/06/18 14:59 Prescribed Drug 1 Hydrocodone NRG Creatinine 78.6 mg/dL > or=20.0 pH 6.78 4.5 - 9.0 Oxidant NEGATIVE mcg/mL <200 Amphetamines NEGATIVE ng/mL <500 medMATCH Amphetamines CONSISTENT NRG Benzodiazepines NEGATIVE ng/mL <100 medMATCH Benzodiazepines INCONSISTENT NRG Marijuana Metabolite NEGATIVE ng/mL <20 medMATCH Marijuana Metab CONSISTENT NRG Cocaine Metabolite NEGATIVE ng/mL <150 medMATCH Cocaine Metab CONSISTENT NRG Opiates NEGATIVE ng/mL <100 medMATCH Opiates INCONSISTENT NRG Oxycodone NEGATIVE ng/mL <100 medMATCH Oxycodone CONSISTENT NRG COMMENT NRG Prescribed Drug 2 Gabapentin NRG Prescribed Drug 3 Clonazepam NRG Barbiturates NEGATIVE ng/mL <300 medMATCH Barbiturates CONSISTENT NRG Methadone Metabolite NEGATIVE ng/mL <100 medMATCH Methadone Metab CONSISTENT NRG Phencyclidine NEGATIVE ng/mL <25 medMATCH Phencyclidine CONSISTENT NRG TSH - 03/21/19 16:36 TSH 1.79 mIU/L NRG Encounters ACCT No. Visit Date/Time Discharge Status Pt. Type Provider Facility Loc./Unit Complaint [id number] 01/10/2015 15:41:00 01/10/2015 23:59:59 CLS Outpatient RACHEL TOMPKINS DO [id number] 12/20/2014 15:08:00 12/20/2014 23:59:59 CLS Outpatient RACHEL TOMPKINS DO [id number] 10/29/2014 14:22:00 10/29/2014 23:59:59 CLS Outpatient HILDA WOLF APRN [id number] 10/15/2014 11:44:00 10/15/2014 23:59:59 CLS Outpatient RACHEL TOMPKINS DO [id number] 08/28/2014 14:57:00 08/28/2014 23:59:59 CLS Outpatient RACHEL TOMPKINS DO [id number] 08/06/2014 07:19:00 08/06/2014 23:59:59 CLS Outpatient ARNOLD RAMIREZ DDS [id number] 07/25/2014 13:23:00 07/25/2014 23:59:59 CLS Outpatient CURRY VIVIANA BEVERLY [id number] 04/18/2014 16:07:00 04/18/2014 23:59:59 CLS Outpatient HILDA WOLF APRN [id number] 04/09/2014 14:44:00 04/09/2014 23:59:59 CLS Outpatient BECK OWENS APRN [id number] 03/05/2014 14:56:00 03/05/2014 23:59:59 CLS Outpatient RACHEL TOMPKINS DO [id number] 02/19/2014 09:01:00 02/19/2014 23:59:59 CLS Outpatient RACHEL TOMPKINS DO [id number] 02/12/2014 11:16:00 02/12/2014 23:59:59 CLS Outpatient RACHEL TOMPKINS DO [id number] 01/26/2014 10:34:00 01/26/2014 23:59:59 CLS Outpatient RACHEL TOMPKINS DO [id number] 2014 15:11:00 2014 23:59:59 CLS Outpatient RACHEL TOMPKINS DO [id number] 01/13/2014 10:51:00 01/13/2014 23:59:59 CLS Outpatient RACHEL TOMPKINS DO [id number] 01/12/2014 08:42:00 01/12/2014 23:59:59 CLS Outpatient RACHEL TOMPKINS DO [id number] 01/03/2014 10:00:00 01/03/2014 23:59:59 CLS Outpatient RACHEL TOMPKINS DO [id number] 12/14/2013 14:16:00 12/14/2013 23:59:59 CLS Outpatient RACHEL TOMPKINS DO [id number] 11/30/2013 09:44:00 11/30/2013 23:59:59 CLS Outpatient RACHEL TOMPKINS DO [id number] 10/13/2013 15:45:00 10/13/2013 23:59:59 CLS Outpatient MARGUERITEBetteLOPEZ BECK CLAUDIO [id number] 08/30/2013 14:47:00 08/30/2013 23:59:59 CLS Outpatient RACHEL TOMPKINS DO [id number] 07/07/2013 10:32:00 07/07/2013 23:59:59 CLS Outpatient RACHEL TOMPKINS DO [id number] 01/02/2013 14:48:00 01/02/2013 23:59:59 CLS Outpatient [id number] 09/08/2012 16:04:00 09/08/2012 23:59:59 CLS Outpatient [id number] 03/15/2013 10:47:00 Document Registration [id number] 07/28/2018 14:24:00 07/28/2018 23:59:59 CLS Preadmit HILDA WOLF [facility] RAD MASS OF RIGHT UPPER EXT R22.31 [id number] 07/19/2018 11:15:00 07/19/2018 23:59:59 CLS Outpatient HILDA WOLF [facility] RAD NODULE,SUBCUTANEOUS [id number] 04/14/2018 13:40:00 04/14/2018 23:59:59 CLS Outpatient RICHI AHUMADA MD [facility] RAD NUMBNESS, HNP [id number] 01/05/2018 16:27:00 01/05/2018 23:59:59 CLS Preadmit OTHER, UNLISTED [facility] RAD HNP [id number] 09/03/2017 10:14:00 09/03/2017 23:59:59 CLS Preadmit HILDA WOLF [facility] RAD M79.601 PAIN OF RT UPPER EXTREMITY [id number] 11/06/2014 14:33:00 11/06/2014 23:59:59 CLS Outpatient HILDA WOLF [facility] RAD BACK PAIN [id number] 10/29/2014 19:09:00 10/29/2014 22:25:00 DIS Emergency SONG SANTOS APRN [facility] ER BACK PAIN/PRESSURE,NAUSEA,OFF BALANCE [id number] 12/06/2013 09:58:00 12/06/2013 23:59:59 CLS Outpatient HILDA WOLF [facility] RAD SEVERE VERTIGO [id number] 04/08/2013 20:37:00 04/09/2013 00:51:00 DIS Emergency BRIAN GARCIA DO K [facility] ER FEVER [id number] 04/20/2019 14:00:00 PEN Preadmit HILDA WOLF [facility] RAD GENERALIZED ABD PAIN, BLOOD IN STOOL [id number] 04/08/2012 10:29:00 Document Registration [id number] 04/07/2012 08:11:00 Document Registration [id number] 07/19/2011 17:17:00 Document Registration [id number] 07/14/2011 06:07:00 Document Registration [id number] 07/08/2011 10:01:00 Document Registration [id number] 07/08/2011 09:57:00 Document Registration [id number] 05/08/2011 09:54:00 Document Registration [id number] 05/04/2011 12:53:00 Document Registration [id number] 03/05/2011 18:03:00 Document Registration [id number] 08/19/2010 09:21:00 Document Registration [id number] 04/17/2019 14:00:00 ACT Outpatient HILDA WOLF APRN [facility] [id number] 03/21/2019 15:20:00 Document Registration [id number] 12/06/2018 14:20:00 Document Registration [id number] 07/07/2018 14:20:00 Document Registration [id number] 04/19/2018 15:00:00 Document Registration [id number] 08/31/2017 09:20:00 Document Registration [id number] 07/01/2017 09:20:00 Document Registration
--- NOTE | 2019-04-19 11:14 | Conscious Sedation/ASA ---
Conscious Sedation Pre-Proced Time 11:00 ASA Score 2 For ASA 3 and 4: Consider anesthesia and medical clearance. Also, for patients with a history of failed moderate sedation consider anesthesia. Airway Lungs Heart ASA score ASA 1: a normal healthy patient ASA 2: a patient with a mild systemic disease (mid diabetes, controlled hypertension, obesity ASA 3: a patient with a severe systemic disease that limits activity (angina, COPD, prior Myocardial infarction) ASA 4: a patient with an incapacitating disease that is a constant threat to life (CHF, renal failure) ASA 5: a moribund patient not expected to survive 24 hrs. (ruptured aneurysm) ASA 6: a declared brain- patient whose organs are being harvested. For emergent operations, add the letter E after the classification Mallampati Classification Grade 2 Sedation Plan Analgesia, Amnesia, Plan communicated to team members, Discussed options with patient/fam, Discussed risks with patient/fam The patient is an appropriate candidate to undergo the planned procedure, sedation, and anesthesia. The patient immediately re-assessed prior to indication. OG MAXWELL MD Apr 19, 2019 11:14
[2019-04-19] MEDS ORDERED: ONDANSETRON 4 MG/2 ML (SDV) Z0FRAN IVP PRN (11:15)
[2019-04-19] MEDS ORDERED: HYDROcodone/APAP 5 MG/325 MG (LORTAB) TAB PO PRN (11:15)
[2019-04-19] MEDS ORDERED: ACETAMINOPHEN 325 MG TABLET PO PRN (11:15)
[2019-04-19] MEDS ORDERED: morphine INJ 10 MG/ML 1ML (SYR OR VIAL) IVP PRN ×2 (11:15)
--- NOTE | 2019-04-19 11:15 | Progress Note-Pre Operative ---
Pre-Operative Progress Note H&P Reviewed The H&P was reviewed, patient examined and no changes noted. Date Seen by Provider: Apr 19, 2019 Time Seen by Provider: 11:00 Date H&P Reviewed: Apr 19, 2019 Time H&P Reviewed: 11:00 Pre-Operative Diagnosis: diffuse abd pain, rectal bleed OG MAXWELL MD Apr 19, 2019 11:15
--- NOTE | 2019-04-19 11:17 | Discharge Inst-Surgical ---
D/C Lap Instructions-ALISSA Follow Up Activity as tolerated High Fiber Diet 25g or more per day Avoid Alcohol, Caffeine, Spicy [place] and Acid foods. Drink 64 fluid oz or more of fluids per day. Symptoms to Report: Fever over 101 degree F, Nausea/Vomiting If any problems/questions: Contact your physician or go to Emergency Room OG MAXWELL MD Apr 19, 2019 11:17
[2019-04-19] MEDS: NS IV 500 ML 500 ML IV PRN (11:45)
[2019-04-19] MEDS ORDERED: LEVO112T55 PO (12:30)
[2019-04-19] MEDS ORDERED: GABA800T PO (12:31)
[2019-04-19] MEDS ORDERED: fentaNYL INJECTION 100 MCG/2 ML AMP ONE (12:47)
[2019-04-19] MEDS ORDERED: LIDOCAINE JELLY 2% 6 ML SYRINGE ONE (12:47)
[2019-04-19] MEDS ORDERED: MIDAZOLAM 2 MG/2 ML (VERSED) VIAL ONE ×8 (12:47→13:07)
[2019-04-19] MEDS ORDERED: HURRICAINE EXT TUBE (BENZOCAINE) ONE (12:48)
[2019-04-19] MEDS: HURRICAINE EXT TUBE (BENZOCAINE) XX PRN (13:00)
[2019-04-19] MEDS: MIDAZOLAM 2 MG/2 ML (VERSED) VIAL IVP ONE (13:02)
[2019-04-19] MEDS: fentaNYL INJECTION 100 MCG/2 ML AMP IVP ONE (13:03)
[2019-04-19] MEDS ORDERED: proPOfol 200 MG/20 ML (DIPRIVAN) VIAL IV ONE (13:26)
[2019-04-19] MEDS: LIDOCAINE JELLY 2% 6 ML SYRINGE MM PRN (13:28)
--- NOTE | 2019-04-19 14:15 | Progress Note ---
Standard Progress Note Progress Notes/Assess & Plan Date Seen by a Provider: Apr 19, 2019 Time Seen by a Provider: 13:31 Progress/Assessment & Plan Anesthesia Note ([id number]) Anesthesia Type -- MAC ASA [address] Porter Called to endoscopy for a failed sedation. Pt was already given midazolam 16 mg IV in divided doses and fentanyl 100 mcg IV prior to my arrival. Brief history obtained from Dr Porter, EGD in progress on my arrival. I gave the patient 150 mg of propofol in divided doses throughout the EGD and colonoscopy. Her vital signs remained stable throughout and she maintained spontaneous ventilations. She tolerated the duration of the procedure well under propofol sedation, no difficulty. DUNCAN MCCONNELL DO Apr 19, 2019 14:15
--- NOTE | 2019-04-19 14:17 | Progress Note-Post Operative ---
Post-Operative Progess Note Surgeon (s)/Audioprosthologist (s) Surgeon OG MAXWELL MD Audioprosthologist: none Pre-Operative Diagnosis diffuse abd pain, rectal bleed Post-Operative Diagnosis reflux esophagitis(stage 2), small HH(1.5cm), moderate gastritis. chronic stage 2-3 ext, stage 2 int hemorrhoids, mild patchy inflammation sigmoid colon. Procedure & Operative Findings Date of Procedure 04/19/19 Procedure Performed/Findings EGD with bx. Colonoscopy with bx. Anesthesia Type cs Estimated Blood Loss Estimated blood loss (mL): minimal Specimens/Packing Specimens Removed ge jxn, antrum, sigmoid colon OG MAXWELL MD Apr 19, 2019 14:17
--- NOTE | 2019-04-19 14:40 | Anesthesia-General Post-Op ---
MAC Patient Condition Mental Status/LOC: Same as Preop Cardiovascular: Satisfactory Nausea/Vomiting: Absent Respiratory: Satisfactory Pain: Controlled Complications: Absent Post Op Complications Complications None Follow Up Care/Instructions Patient Instructions None needed. Anesthesiology Discharge Order Discharge Order Patient is doing well, no complaints, stable vital signs, no apparent adverse anesthesia problems. DUNCAN MCCONNELL DO Apr 19, 2019 14:40
--- NOTE | 2019-04-20 00:16 | OPERATIVE REPORT ---
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 POSTOPERATIVE DIAGNOSES: Reflux esophagitis stage II, small hiatal hernia 1.5 cm in size, moderate severity gastritis. No mucosal inflammatory changes to indicate any inflammatory bowel disease. Chronic stage between stage II and III external hemorrhoids, stage II internal hemorrhoids. Very mild small patches of inflammation of the sigmoid colon; however, not severe. There were no ulcerations or any bleeding. The remainder of the colon was normal with no mucosal inflammatory changes to indicate any active colitis. PROCEDURE: EGD with biopsy, colonoscopy with biopsy. SURGEON: Og Maxwell MD ANESTHESIA: Monitored anesthesia care. FINDINGS: Same as postop. DISPOSITION: The patient tolerated the procedure well. INDICATIONS: The patient is a 39-year-old female who has had a multitude of gastrointestinal symptoms. She first reports that she has had diffuse abdominal pain, which is crampy in nature and intermittent. She also reports nausea and vomiting. This has been occurring for the past six months; however, has had more frequent as well as worse episodes in the past week. She also has noticed red blood per rectum and also dark stools with clotting as well. She states that there is sometimes it is mucus with blood within her stools. She does not know any family history due to being adopted. She does not report any fever nor chills as well as no recent inadvertent weight loss. DESCRIPTION OF PROCEDURE: The patient was brought to the endoscopy suite, laid in left lateral decubitus position. After adequate IV pain and sedative medications and monitored anesthesia care, the mouthpiece was applied. The endoscope was placed into the mouth visualizing the pharynx and hypopharyngeal region. Vocal cords, epiglottis and vallecula identified and appeared to be normal. The endoscope was then gently intubated in the esophageal opening and esophagus insufflated. The endoscope was then advanced to the first, second and third portion of the esophagus to the level of the GE junction, a reflux esophagitis stage II identified. There were no ulcers or strictures identified in this region. A biopsy was taken with forceps with visualization of good hemostasis. The endoscope was then easily advanced into the stomach and endoscope retroflexed, visualizing a small hiatal hernia approximately 1.5 cm in size. There was a moderate severity gastritis towards the antrum of the stomach; however, no formal ulcerations, polyps, or any neoplasms. A biopsy was taken of the stomach to rule out H. pylori with visualization of good hemostasis. The endoscope was then advanced to the pylorus and the first and second portion of the duodenum, which appeared normal with no mucosal inflammatory changes or ulcerations. The endoscope was then slowly withdrawn while taking a second look and suctioning residual air with no additional findings. The patient tolerated this portion of the procedure well. It does appear that she does have a reflux esophagitis, a small hiatal hernia as well as gastritis. However, this is most likely due to diet and lifestyle. She did recently stop smoking. We will also recommend avoidance of caffeinated beverages, spicy, greasy and acidic foods as well as to take in small and more frequent meals and avoid eating at night. We will also start her on Protonix 40 mg daily as well as Zofran p.r.n. Under the same anesthesia, we then proceeded with the colonoscopy portion of the procedure. A digital rectal examination was performed, which revealed chronic between stage II and III external hemorrhoids as well as stage II internal hemorrhoids. There was no active bleeding identified. Normal sphincter tone was felt and there were no palpable masses. The endoscope was then intubated to the anus and rectum gently insufflated. The endoscope was then advanced to the valves of [place] of the rectum with no polyps or any neoplasms identified as well as no mucosal inflammatory changes. Through the sigmoid colon, there were small areas of spotted inflammation; however, this was relatively mild and not severe. Biopsies were taken of these mild inflammatory response with forceps with visualization of good hemostasis. The endoscope was then advanced through the remainder of the sigmoid colon where there were no diverticulosis identified. The endoscope was then advanced to the remainder of the descending, transverse and ascending colon to the cecum. These segments were normal. There were no significant mucosal inflammatory changes as well, no polyps or any neoplasms identified as well. The endoscope was then slowly withdrawn while taking a second look and suctioning of residual air with no additional findings. The patient tolerated the procedure well. We will await the biopsy results; however, recommend medical management with a high-fiber diet with 25 grams of fiber per day as well as significant amounts of water to promote soft stools on a daily basis. If she does have a recurrent or worsening symptoms of bleeding, we will have her follow up for further evaluation, which may include diagnostic imaging including CT scan with contrast. Job ID: [id number] DocumentID: [id number] Dictated Date: 04/19/2019 14:10:57 Hospice Registered Nurse Date: 04/20/2019 00:16:17 Dictated By: OG MAXWELL MD
== END 2019-04-19 15:05 | disposition home or self-care (01) ==
LOC: ENDO 10:03
PROVIDERS: ATTEND Surgery
DX: K21.0 Gastro-esophageal reflux disease with esophagitis (principal); K44.9 Diaphragmatic hernia without obstruction or gangrene; K29.50 Unspecified chronic gastritis without bleeding; K64.2 Third degree hemorrhoids; K64.4 Residual hemorrhoidal skin tags; G62.9 Polyneuropathy, unspecified; M48.00 Spinal stenosis, site unspecified; F41.9 Anxiety disorder, unspecified; F32.9 Major depressive disorder, single episode, unspecified; E03.9 Hypothyroidism, unspecified; K63.89 Other specified diseases of intestine; Z88.8 Allergy status to other drugs, medicaments and biological substances; Z91.040 Latex allergy status; Z87.891 Personal history of nicotine dependence; Z90.49 Acquired absence of other specified parts of digestive tract; Z90.89 Acquired absence of other organs; Z79.899 Other long term (current) drug therapy; Z90.710 Acquired absence of both cervix and uterus
CPT/HCPCS: 88305

== ENCOUNTER → 2019-04-20 | Outpatient (CLI) | payer MEDICAID, MEDICARE ==
[~2019-04-20] MED LIST changes: +GABA800T PO; +GADOBUTROL 10 MMOL/10 ML (GADAVIST) VIAL IV ONE; +LEVO112T55 PO
--- NOTE | 2019-04-20 15:32 | Diagnostic Imaging Report ---
PROCEDURE: MR imaging abdomen with and without contrast. TECHNIQUE: Multiplanar, multisequence MR imaging of the abdomen was performed with and without contrast. INDICATION: Mid abdominal pain. FINDINGS: No comparison is available. The liver is normal in size. No fat or iron deposition. No surface nodularity. No focal liver lesions are seen. Gallbladder is absent. No biliary ductal dilatation. There is a 17 mm T2 hyperintense and T1 hypointense lesion in the head of the pancreas without nodularity or enhancement. 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 Pancreas is otherwise normal. Spleen, adrenal glands and kidneys are normal. Visualized bowel is normal. Abdominal aorta is normal in caliber. No free fluid or air is seen. Lower thorax appears normal. No osseous lesions are seen. IMPRESSION: 1. No acute abnormality in the abdomen or pelvis to suggest cause for abdominal pain. 2. 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 I would recommend a one-year followup MRI to ensure stability. Dictated by: Dictated on workstation # [id number]
== END ==
LOC: RAD 13:39
PROVIDERS: ATTEND Nurse Practitioner Family
DX: K86.2 Cyst of pancreas (principal); K92.1 Melena; Z90.49 Acquired absence of other specified parts of digestive tract
CPT/HCPCS: 74183

== ENCOUNTER 2019-08-24 14:51 | Emergency (ER) | payer MEDICARE ==
[~2019-08-24] VITALS: Ht 165 cm; Wt 90.7 kg
[~2019-08-24 14:51] MED LIST changes: -GADOBUTROL 10 MMOL/10 ML (GADAVIST) VIAL IV ONE
[2019-08-24 15:29] LABS: BASOPHILS % (AUTO) 0 % (0-10); EOSINOPHILS # (AUTO) 0.4 10^3/uL (0.0-0.3); EOSINOPHILS % (AUTO) 4 % (0-10); HEMATOCRIT 45 % (35-52); HEMOGLOBIN 15.4 G/DL (11.5-16.0); LYMPHOCYTES # (AUTO) 3.2 X 10^3 (1.0-4.0); LYMPHOCYTES % (AUTO) 35 % (12-44); MEAN CORPUSCULAR HEMOGLOBIN 31 PG (25-34); MEAN CORPUSCULAR HGB CONC 34 G/DL (32-36); MEAN CORPUSCULAR VOLUME 91 FL (80-99); MEAN PLATELET VOLUME 10.5 FL (7.4-10.4); MONOCYTES # (AUTO) 0.8 X 10^3 (0.0-1.0); MONOCYTES % (AUTO) 8 % (0-12); NEUTROPHILS # (AUTO) 4.8 X 10^3 (1.8-7.8); NEUTROPHILS % (AUTO) 53 % (42-75); PLATELET COUNT 291 10^3/uL (130-400); RED CELL DISTRIBUTION WIDTH 12.4 % (10.0-14.5); WHITE BLOOD COUNT 9.1 10^3/uL (4.3-11.0)
--- NOTE | 2019-08-24 15:49 | ED Abdominal Pain ---
General Chief Complaint: Abdominal/GI Problems Stated Complaint: ABD PAIN Nursing Triage Note: has abdominal pain that started yesterday and saw Dr Porter, now has increasing pain Sepsis Screen: No Definite Risk Source of Information: Patient Exam Limitations: No Limitations History of Present Illness Date Seen by Provider: Aug 24, 2019 Time Seen by Provider: 15:48 Initial Comments 39-year-old female patient presents with complaints of generalized abdominal pain beginning yesterday. Patient was seen by Dr. Porter yesterday for follow-up of her EGD and colonoscopy. Patient states she is being scheduled with Dr. White for capsule endoscopy and possibly going to be scheduled for laparoscopic Hill gastropexy. Patient reports increased abdominal distention, generalized pain, nausea, and vomiting today. She denies passing flatus, but states she did have a small to medium-sized stool earlier today. Denies any urinary symptoms. Timing/Duration: 24 Hours Severity/Quality: Aching, Cramping, Sharp Location: Generalized Abdomen Radiation: No Radiation Activities at Onset: None Modifying Factors: Worsens With Breathing, Worsens With Eating, Worsens With Movement, Worsens With Palpation Allergies and Home Medications Allergies Coded Allergies: latex (Unverified Allergy, Unknown, 04/19/19) Home Medications Gabapentin 800 Mg Tablet, 800 MG PO TID, (Reported) Levothyroxine Sodium 112 Mcg Tablet, 112 MCG PO DAILY, (Reported) Patient Home Medication List Home Medication List Reviewed: Yes Review of Systems Review of Systems Constitutional: chills, diaphoresis; No dizziness, No fever; malaise EENTM: No Symptoms Reported Respiratory: Denies Cough, Denies Orthopnea, Denies Shortness of Air, Denies Wheezing Cardiovascular: Denies Chest Pain, Denies Lightheadedness, Denies Palpitations, Denies Syncope Gastrointestinal: See HPI, Abdomen Distended, Abdominal Pain; Denies Constipated, Denies Diarrhea; Nausea, Poor Appetite, Poor Fluid Intake; Denies Rectal Bleeding; Vomiting Genitourinary: Denies Burning, Denies Discharge, Denies Frequency, Denies Flank Pain, Denies Hematuria Musculoskeletal: no symptoms reported Skin: no symptoms reported Psychiatric/Neurological: No Symptoms Reported Endocrine: No Symptoms Reported All Other Systems Reviewed Negative Unless Noted: Yes (Negative excepted noted.) Past Vvrakul-Nfkayp-Vbmeky Hx Past Med/Social Hx: Reviewed and Corrections made Patient Social History Alcohol Use: Denies Use Recreational Drug Use: No Type Used: Cigarettes Former Smoker, Quit: Apr 05, 2019 2nd Hand Smoke Exposure: No Recent Foreign Travel: No Contact w/Someone Who Travel: No Recent Infectious Disease Expo: No Recent Hopitalizations: Yes (SURGERIES) Immunizations Up To Date Tetanus Booster (TDap): Unknown Seasonal Allergies Seasonal Allergies: No Past Medical History Surgeries: Yes (BACK) Appendectomy, Section, Gallbladder, Hysterectomy, Tonsillectomy Respiratory: No Cardiac: No Neurological: Yes Reproductive Disorders: Yes (ENDOMETRIOSIS) Female Reproductive Disorders: Menstrual Problems, Endometriosis Sexually Transmitted Disease: No Gastrointestinal: Yes (gastritis) Colitis, Gastroesophageal Reflux, Gastrointestinal Bleed, Hemorrhoids Musculoskeletal: Yes Degenerate Disk Disease, Chronic Back Pain Endocrine: No Cancer: No Psychosocial: No Integumentary: No Blood Disorders: Yes (ANEMIA PRIOR TO HYSTERECTOMY, NO PROBLEMS SINCE) Adverse Reaction/Blood Tranf: No Family Medical History Reviewed Nursing Family Hx No Pertinent Family Hx Physical Exam Vital Signs Vital Signs - First Documented 08/24/19 15:01 Temp 36.8 Pulse 78 Resp 18 B/P (MAP) 105/57 (73) Capillary Refill : Less Than 3 Seconds Height/Weight/BMI Height: 5'5.00" Weight: 206lbs. 0.0oz. 93.463212og; 33.00 BMI Method:Stated General Appearance: WD/WN, no apparent distress HEENT: PERRL/EOMI, pharynx normal Neck: supple, normal inspection Respiratory: lungs clear, normal breath sounds, no respiratory distress, no accessory muscle use Cardiovascular: normal peripheral pulses, regular rate, rhythm, no edema, no gallop, no murmur Peripheral Pulses: 2+ Dorsalis Pedis (R), 2+ Left Dors-Pedis (L), 2+ Radial Pulses (R), 2+ Radial Pulses (L) Gastrointestinal: soft, no organomegaly, no pulsatile mass, abnormal bowel sounds (hypoactive bowel sounds), distended (mild distention, but soft), guarding (generalized guarding); No rebound; tenderness (generalized tenderness); No mass Extremities: no pedal edema, normal capillary refill Back: normal inspection, no CVA tenderness Neurologic/Psychiatric: alert, normal mood/affect, oriented x 3 Skin: normal color, warm/dry Progress/Results/Core Measures Results/Orders Lab Results Laboratory Tests Test 08/24/19 15:22 08/24/19 17:30 Range/Units White Blood Count 9.1 4.3-11.0 10^3/uL Red Blood Count 4.99 4.35-5.85 10^6/uL Hemoglobin 15.4 11.5-16.0 G/DL Hematocrit 45 35-52 % Mean Corpuscular Volume 91 80-99 FL Mean Corpuscular Hemoglobin 31 25-34 PG Mean Corpuscular Hemoglobin Concent 34 32-36 G/DL Red Cell Distribution Width 12.4 10.0-14.5 % Platelet Count 291 130-400 10^3/uL Mean Platelet Volume 10.5 H 7.4-10.4 FL Neutrophils (%) (Auto) 53 42-75 % Lymphocytes (%) (Auto) 35 12-44 % Monocytes (%) (Auto) 8 0-12 % Eosinophils (%) (Auto) 4 0-10 % Basophils (%) (Auto) 0 0-10 % Neutrophils # (Auto) 4.8 1.8-7.8 X 10^3 Lymphocytes # (Auto) 3.2 1.0-4.0 X 10^3 Monocytes # (Auto) 0.8 0.0-1.0 X 10^3 Eosinophils # (Auto) 0.4 H 0.0-0.3 10^3/uL Basophils # (Auto) 0.0 0.0-0.1 10^3/uL Sodium Level 139 135-145 MMOL/L Potassium Level 4.3 3.6-5.0 MMOL/L Chloride Level 105 98-107 MMOL/L Carbon Dioxide Level 24 21-32 MMOL/L Anion Gap 10 5-14 MMOL/L Blood Urea Nitrogen 10 7-18 MG/DL Creatinine 0.81 0.60-1.30 MG/DL Estimat Glomerular Filtration Rate > 60 BUN/Creatinine Ratio 12 Glucose Level 86 70-105 MG/DL Calcium Level 10.0 8.5-10.1 MG/DL Corrected Calcium 8.5-10.1 MG/DL Total Bilirubin 1.2 H 0.1-1.0 MG/DL Aspartate Amino Transf (AST/SGOT) 18 5-34 U/L Alanine Aminotransferase (ALT/SGPT) 30 0-55 U/L Alkaline Phosphatase 93 40-136 U/L C-Reactive Protein High Sensitivity 0.41 0.00-0.50 MG/DL Total Protein 8.4 H 6.4-8.2 GM/DL Albumin 4.9 H 3.2-4.5 GM/DL Lipase 50 8-78 U/L Urine Color YELLOW Urine Clarity CLEAR Urine pH 5.5 5-9 Urine Specific [place] <=1.005 1.016-1.022 Urine Protein NEGATIVE NEGATIVE Urine Glucose (UA) NEGATIVE NEGATIVE Urine Ketones NEGATIVE NEGATIVE Urine Nitrite POSITIVE NEGATIVE Urine Bilirubin NEGATIVE NEGATIVE Urine Urobilinogen 0.2 < = 1.0 MG/DL Urine Leukocyte Esterase NEGATIVE NEGATIVE Urine RBC (Auto) TRACE-I NEGATIVE Urine RBC 0-2 /HPF Urine WBC RARE /HPF Urine Squamous Epithelial Cells 25-50 H /HPF Urine Crystals NONE /LPF Urine Bacteria MODERATE H /HPF Urine Casts NONE /LPF Urine Mucus NEGATIVE /LPF Urine Culture Indicated YES My Orders Orders - ALBERT CUMMINS Ed Iv/Invasive Line Start (08/24/19 15:10) Urine Bedside (08/24/19 15:10) Cbc With Automated Diff (08/24/19 15:10) Comprehensive Metabolic Panel (08/24/19 15:10) Hs C Reactive Protein (08/24/19 15:10) Lipase (08/24/19 15:10) Ua Culture If Indicated (08/24/19 15:10) Ondansetron Injection (Zofran Injectio (08/24/19 16:30) Famotidine Injection (Pepcid Injection) (08/24/19 16:16) Ns Iv 1000 Ml (Sodium Chloride 0.9%) (08/24/19 16:16) Fentanyl Injection (Sublimaze Injection (08/24/19 16:16) Ct Abdomen/Pelvis W (08/24/19 16:16) Iohexol Injection (Omnipaque 350 Mg/Ml 1 (08/24/19 16:30) Received Contrast (Hold Metformin- Contr (08/24/19 16:30) Ns (Ivpb) (Sodium Chloride 0.9% Ivpb Bag (08/24/19 16:30) Morphine Injection (Morphine Injection (08/24/19 17:30) Urine Culture (08/24/19 17:30) Medications Given in ED Current Medications Medications Dose Ordered Sig/Paloma Route Start Time Stop Time Status Last Admin Dose Admin Iohexol 100 ml ONCE ONCE IV 08/24/19 16:30 08/24/19 16:31 DC 08/24/19 16:46 100 ML Morphine Sulfate 4 mg ONCE ONCE IVP 08/24/19 17:30 08/24/19 17:31 DC 08/24/19 17:50 4 MG Ondansetron HCl 4 mg ONCE ONCE IVP 08/24/19 16:30 08/24/19 16:31 DC 08/24/19 16:23 4 MG Sodium Chloride 100 ml ONCE ONCE IV 08/24/19 16:30 08/24/19 16:31 DC 08/24/19 16:46 80 ML Sodium Chloride 1,000 ml @ 0 mls/hr Q0M ONCE IV 08/24/19 16:16 08/24/19 16:18 DC 08/24/19 16:22 1,000 MLS/HR Vital Signs/I&O 08/24/19 15:01 Temp 36.8 Pulse 78 Resp 18 B/P (MAP) 105/57 (73) Blood Pressure Mean: 73 POS Diagnostic Imaging Diagonstic Imaging: CT Plain Films/CT/US/NM/MRI: abdomen, pelvis Comments POSDate of Exam:08/24/19 CT ABDOMEN/PELVIS W PROCEDURE: CT abdomen and pelvis with contrast. TECHNIQUE: Multiple contiguous axial images were obtained through the abdomen and pelvis after administration of intravenous contrast. Auto Exposure Controls were utilized during the CT exam to meet ALARA standards for radiation dose reduction. INDICATION: Abdominal pain, nausea, hiatal hernia, history of duodenal ulcer with recent blood per rectum. FINDINGS: The heart size is normal. The lung bases are clear. The liver is normal in size and without focal lesions. Gallbladder surgically absent. There is no biliary duct dilatation. Spleen is normal. The pancreas and adrenal glands are unremarkable. The kidneys are normal in appearance. Bladder is normal. The aorta is nonaneurysmal. The bowel gas pattern is nonspecific. Appendix appears to be surgically absent. There is no free air. There is no ascites. There are no focal inflammatory changes. There are mild degenerative changes in the lumbar spine. There is no pelvic mass, adenopathy or free fluid. IMPRESSION: No acute abnormality in the abdomen or pelvis. Specifically, the gallbladder and appendix both appear to be surgically absent. There is no focal inflammatory process. Dictated on workstation # [id number] Reviewed: Reviewed by Me (radiology report reviewed by me) Departure Impression Primary Impression: Urinary tract infection Additional Impressions: Nausea and vomiting Abdominal pain Disposition: 01 HOME, SELF-CARE Condition: Improved Departure-Patient Inst. Decision time for Depature: 17:36 Referrals: HILDA WOLF (PCP) Primary Care Physician OG PORTER MD Patient Instructions: Nausea and Vomiting, Adult, Urinary Tract Infection, Adult (DC), Acute Abdomen (Belly Pain), Adult (DC) Add. Discharge Instructions: All discharge instructions reviewed with patient and/or family. Voiced understanding. Continue usual home medications. Increase hydrocodone 5/325 mg to 1-2 tablets by mouth every 4-6 hours as needed for pain. Stay well hydrated. Follow-up with Jace Wolf for recheck as an outpatient early next week, call tomorrow morning for appointment time. Follow-up with Dr. Porter as an outpatient for recheck. Return in the emergency department for worsened pain, fever, vomiting blood, rectal bleeding, black stools, or any other concerns. Scripts Nitrofurantoin Monohyd/M-Cryst (Macrobid 100 mg Capsule) 100 Mg Capsule 1 TAB PO BID, #14 CAP 0 Refills Prov: ALBERT CUMMINS 08/24/19 ALBERT CUMMINS Aug 24, 2019 15:49 POS
[2019-08-24 15:50] LABS: ALANINE AMINOTRANSFERASE 30 U/L (0-55); ALBUMIN 4.9 GM/DL (3.2-4.5); ALKALINE PHOSPHATASE 93 U/L (40-136); BILIRUBIN,TOTAL 1.2 MG/DL (0.1-1.0); BUN/CREATININE RATIO 12; CARBON DIOXIDE 24 MMOL/L (21-32); CHLORIDE 105 MMOL/L (98-107); CREATININE SERUM 0.81 MG/DL (0.60-1.30); GFR ESTIMATED > 60; GLUCOSE 86 MG/DL (70-105); LIPASE 50 U/L (8-78); POTASSIUM 4.3 MMOL/L (3.6-5.0); SODIUM 139 MMOL/L (135-145); TOTAL PROTEIN 8.4 GM/DL (6.4-8.2)
[2019-08-24] MEDS ORDERED: NS IV 1000 ML 1,000 ML IV ONE (16:16)
[2019-08-24] MEDS ORDERED: fentaNYL INJECTION 100 MCG/2 ML AMP IVP STA (16:16)
[2019-08-24] MEDS ORDERED: FAMOTIDINE 20MG/2ML IV (PEPCID) IV STA (16:16)
[2019-08-24] MEDS ORDERED: HOLD METFORMIN - RECEIVED CONTRAST 20 ML VIAL IV SCH (16:30)
[2019-08-24] MEDS ORDERED: ONDANSETRON 4 MG/2 ML (SDV) Z0FRAN IVP ONE (16:30)
[2019-08-24] MEDS ORDERED: IOHEXOL 350 MG/ML 100 ML (OMNIPAQUE 350) VIAL IV ONE (16:30)
[2019-08-24] MEDS ORDERED: NS 100 ML (IVPB) BAG IV ONE (16:30)
--- NOTE | 2019-08-24 16:39 | NUR ---
pt to CT to obtain images
--- NOTE | 2019-08-24 17:14 | Diagnostic Imaging Report ---
PROCEDURE: CT abdomen and pelvis with contrast. TECHNIQUE: Multiple contiguous axial images were obtained through the abdomen and pelvis after administration of intravenous contrast. Auto Exposure Controls were utilized during the CT exam to meet ALARA standards for radiation dose reduction. INDICATION: Abdominal pain, nausea, hiatal hernia, history of duodenal ulcer with recent blood per rectum. FINDINGS: The heart size is normal. The lung bases are clear. The liver is normal in size and without focal lesions. Gallbladder surgically absent. There is no biliary duct dilatation. Spleen is normal. The pancreas and adrenal glands are unremarkable. The kidneys are normal in appearance. Bladder is normal. The aorta is nonaneurysmal. The bowel gas pattern is nonspecific. Appendix appears to be surgically absent. There is no free air. There is no ascites. There are no focal inflammatory changes. There are mild degenerative changes in the lumbar spine. There is no pelvic mass, adenopathy or free fluid. IMPRESSION: No acute abnormality in the abdomen or pelvis. Specifically, the gallbladder and appendix both appear to be surgically absent. There is no focal inflammatory process. Dictated by: Dictated on workstation # [id number]
[2019-08-24] MEDS ORDERED: morphine INJ 10 MG/ML 1ML (SYR OR VIAL) IVP ONE (17:30)
[2019-08-24 17:38] LABS: BILIRUBIN,URINE NEGATIVE (NEGATIVE); CLARITY,URINE CLEAR; COLOR,URINE YELLOW; GLUCOSE, URINE (UA) NEGATIVE (NEGATIVE); KETONES,URINE NEGATIVE (NEGATIVE); LEUKOCYTE ESTERASE ,URINE NEGATIVE (NEGATIVE); NITRITE,URINE POSITIVE (NEGATIVE); PH,URINE 5.5 (5-9); PROTEIN,URINE NEGATIVE (NEGATIVE)
[2019-08-24 17:45] LABS: BACTERIA,URINE MODERATE /HPF; RBC,URINE 0-2 /HPF; SQUAMOUS EPITHELIAL CELL,UR 25-50 /HPF; WBC,URINE RARE /HPF
[2019-08-24] MEDS ORDERED: NITR-65 PO (18:35)
[2019-08-24] MEDS ORDERED: oxyCODONE/APAP 5/325MG (PERCOCET 5) TABLET PO ONE (18:45)
[2019-08-24] MEDS ORDERED: NITROFURANTOIN 100 MG (MACROBID) CAPSULE PO ONE (18:45)
[2019-08-24] MEDS ORDERED: PROMETHAZINE INJ 25 MG/ML (PHENERGAN) AMP IVP ONE (18:45)
[2019-08-24 18:49] VITALS: BP 105/57
== END 2019-08-24 18:49 | disposition home or self-care (01) ==
LOC: EDUNIT# 14:51 → ER 14:52
DX: N39.0 Urinary tract infection, site not specified (principal); R11.2 Nausea with vomiting, unspecified; K21.9 Gastro-esophageal reflux disease without esophagitis; Z91.040 Latex allergy status; Z87.891 Personal history of nicotine dependence; Z90.49 Acquired absence of other specified parts of digestive tract; Z90.710 Acquired absence of both cervix and uterus; Z90.89 Acquired absence of other organs
CPT/HCPCS: 36415; 74177; 80053; 81000; 83690; 84703; 85025; 86141; 87077; 87088; 87186

== ENCOUNTER → 2021-03-13 | Outpatient (CLI) | payer MEDICARE ==
[~2021-03-13] MED LIST changes: +NITR-65 PO; +SUCR1TAB36 PO
--- NOTE | 2021-03-13 18:22 | Diagnostic Imaging Report ---
EXAMINATION: CT head with and without contrast. TECHNIQUE: Multiple contiguous axial images were obtained through the brain with and without the use of intravenous contrast. All CT scans use one or more of the following dose optimizing techniques: automated exposure control, MA and/or KvP adjustment based on a patient size and exam type, or iterative reconstruction. HISTORY: ACUTE INTRACTABLE HEADACHE. COMPARISON: CT head 10/29/2014. FINDINGS: The ventricles and sulci are normal. No abnormal attenuation of brain parenchyma is present. No acute intracranial hemorrhage or abnormal extra-axial fluid collections are present. No abnormal meningeal or parenchymal enhancement. No hyperdense vessel. The calvarium is intact. The mastoid air cells are clear. The visualized paranasal sinuses are clear. The orbits are normal. IMPRESSION: 1. No acute intracranial abnormality. Dictated by: Dictated on workstation # [id number]
--- NOTE | 2021-03-13 18:22 | Diagnostic Imaging Report ---
INDICATION: Neck pain. 3 views were obtained FINDINGS: There is straightening of normal cervical lordosis. There has been a previous anterior cervical disc fusion C6-C7 with plate and screws. Vertebral body heights well-maintained. Prevertebral soft tissues are within normal limits IMPRESSION: Stable postoperative changes of an anterior cervical disc fusion at C6-C7 otherwise unremarkable. Dictated by: Dictated on workstation # [id number]
== END ==
LOC: RAD 15:45
PROVIDERS: ATTEND Nurse Practitioner Family
DX: R51.9 Headache, unspecified (principal); R29.90 Unspecified symptoms and signs involving the nervous system; M54.2 Cervicalgia; Z98.1 Arthrodesis status
CPT/HCPCS: 70470; 72040

== ENCOUNTER 2021-07-04 12:50 | Emergency (ER) | payer MEDICARE ==
[~2021-07-04] VITALS: Ht 167 cm; Wt 80.0 kg
--- NOTE | 2021-07-04 13:33 | ED General ---
General Chief Complaint: General Problems/Pain Stated Complaint: VAGINAL BLEEDING,NAUSA,ABD CRAMPING Source of Information: Patient Exam Limitations: No Limitations History of Present Illness Date Seen by Provider: Jul 04, 2021 Time Seen by Provider: 13:30 Initial Comments To ER by private vehicle with reports of nausea abdominal cramping and vaginal bleeding onset this morning. She was urinating when she noticed some blood on the toilet paper. She did a digital vaginal exam and found blood on her finger. She has had a supracervical hysterectomy several years ago and has been totally symptom-free until today. Timing/Duration: 1-3 Hours Severity: Moderate Associated Systoms: Denies Symptoms Allergies and Home Medications Allergies Coded Allergies: latex (Unverified Allergy, Unknown, 04/19/19) Patient Home Medication List Home Medication List Reviewed: Yes Gabapentin (Neurontin) 800 Mg Tablet, 800 MG PO TID, (Reported) Entered as Reported by: NORIS GTZ on 04/19/19 1231 Levothyroxine Sodium (Levothyroxine Sodium) 112 Mcg Tablet, 112 MCG PO DAILY, (Reported) Entered as Reported by: NORIS GTZ on 04/19/19 1230 Nitrofurantoin Monohyd/M-Cryst (Macrobid 100 mg Capsule) 100 Mg Capsule, 1 TAB PO BID Prescribed by: ALBERT CUMMINS on 08/24/19 1835 Sucralfate (Carafate) 1 Gm Tablet, 1 GM PO QID Prescribed by: GO MAXWELL on 11/02/19 1533 Review of Systems Review of Systems Constitutional: see HPI EENTM: see HPI Respiratory: no symptoms reported Cardiovascular: no symptoms reported Genitourinary: no symptoms reported Musculoskeletal: no symptoms reported Skin: no symptoms reported Psychiatric/Neurological: No Symptoms Reported Past Mhpienl-Twlxan-Vwsqyh Hx Immunizations Up To Date Tetanus Booster (TDap): Unknown Seasonal Allergies Seasonal Allergies: No Past Medical History Surgeries: Yes (LUMBAR DISCECTOMY, CERCIAL LAMINECTOMY, URINARY DILITATION (1999)) Appendectomy, Section, Gallbladder, Hysterectomy, Tonsillectomy Respiratory: No Cardiac: No Neurological: Yes (LAST SEIZURE 2008) Headaches /Migraines, Seizure Disorder Reproductive Disorders: Yes (ENDOMETRIOSIS) Female Reproductive Disorders: Menstrual Problems, Endometriosis CPO History: Hysterectomy Sexually Transmitted Disease: No Genitourinary: Yes (URINARY INCONTINENCE, URINARY RETENTION IN 1999) Gastrointestinal: Yes (gastritis) Colitis, Gastroesophageal Reflux, Gastrointestinal Bleed, Hemorrhoids Musculoskeletal: Yes Degenerate Disk Disease, Chronic Back Pain Endocrine: Yes Hypothyroidsim HEENT: No Cancer: No Psychosocial: No Integumentary: No Blood Disorders: Yes (ANEMIA PRIOR TO HYSTERECTOMY, NO PROBLEMS SINCE) Adverse Reaction/Blood Tranf: No Family Medical History No Pertinent Family Hx Physical Exam Vital Signs Vital Signs - First Documented 07/04/21 13:30 Temp 36.8 Pulse 60 Resp 16 B/P (MAP) 135/85 (102) Pulse Ox 97 Capillary Refill : Height, Weight, BMI Height: 5'5.00" Weight: 206lbs. 0.0oz. 93.762780wr; 33.01 BMI Method:Stated General Appearance: No Apparent Distress, WD/WN Eyes: Bilateral Eye Normal Inspection, Bilateral Eye PERRL, Bilateral Eye EOMI Neck: Full Range of Motion, Normal Inspection Respiratory: No Accessory Muscle Use, No Respiratory Distress Rectal: Other (Pelvic exam done with Mandie patient healthcare management consultant at the bedside. There is absolutely no blood coming from the cervix or within the vagi nal vault. No lacerations or mass. There is a small (smaller than pinhead size) clot of blood at the perineum unattached. She does have a rather large external hemorrhoid which is likely the source of her bleed as there is no blood at the urethral orifice or within the vagina. She states that she did douche at home after this, however, a normal whitish clear appearing cervical discharge is still present.) Extremity: Normal Capillary Refill, Normal Inspection Neurologic/Psychiatric: Alert, Oriented x3 Skin: Normal Color, Warm/Dry Progress/Results/Core Measures Suspected Sepsis SIRS Temperature: Pulse: Respiratory Rate: Laboratory Tests 07/04/21 13:34: White Blood Count 8.9 Blood Pressure / Mean: Laboratory Tests 07/04/21 13:34: Creatinine 0.72, INR Comment 1.0, Platelet Count 310, Total Bilirubin 0.9 Results/Orders Lab Results Laboratory Tests Test 07/04/21 13:34 Range/Units White Blood Count 8.9 4.3-11.0 10^3/uL Red Blood Count 4.67 3.80-5.11 10^6/uL Hemoglobin 14.9 11.5-16.0 g/dL Hematocrit 43 35-52 % Mean Corpuscular Volume 92 80-99 fL Mean Corpuscular Hemoglobin 32 25-34 pg Mean Corpuscular Hemoglobin Concent 35 32-36 g/dL Red Cell Distribution Width 11.6 10.0-14.5 % Platelet Count 310 130-400 10^3/uL Mean Platelet Volume 10.8 9.0-12.2 fL Immature Granulocyte % (Auto) 1 % Neutrophils (%) (Auto) 42 42-75 % Lymphocytes (%) (Auto) 42 12-44 % Monocytes (%) (Auto) 9 0-12 % Eosinophils (%) (Auto) 5 0-10 % Basophils (%) (Auto) 1 0-10 % Neutrophils # (Auto) 3.8 1.8-7.8 10^3/uL Lymphocytes # (Auto) 3.8 1.0-4.0 10^3/uL Monocytes # (Auto) 0.8 0.0-1.0 10^3/uL Eosinophils # (Auto) 0.5 H 0.0-0.3 10^3/uL Basophils # (Auto) 0.1 0.0-0.1 10^3/uL Immature Granulocyte # (Auto) 0.0 0.0-0.1 10^3/uL Prothrombin Time 13.1 12.2-14.7 SEC INR Comment 1.0 0.8-1.4 Sodium Level 138 135-145 MMOL/L Potassium Level 4.0 3.6-5.0 MMOL/L Chloride Level 107 98-107 MMOL/L Carbon Dioxide Level 22 21-32 MMOL/L Anion Gap 9 5-14 MMOL/L Blood Urea Nitrogen 10 7-18 MG/DL Creatinine 0.72 0.60-1.30 MG/DL Estimat Glomerular Filtration Rate 89 BUN/Creatinine Ratio 14 Glucose Level 84 70-105 MG/DL Calcium Level 9.6 8.5-10.1 MG/DL Corrected Calcium 9.2 8.5-10.1 MG/DL Total Bilirubin 0.9 0.1-1.0 MG/DL Aspartate Amino Transf (AST/SGOT) 21 5-34 U/L Alanine Aminotransferase (ALT/SGPT) 38 0-55 U/L Alkaline Phosphatase 73 40-136 U/L Total Protein 7.4 6.4-8.2 GM/DL Albumin 4.5 3.2-4.5 GM/DL My Orders Orders - SONG SANTOS APRN Cbc With Automated Diff (07/04/21 13:28) Comprehensive Metabolic Panel (07/04/21 13:28) Protime With Inr (07/04/21 13:28) Ct Abd/Pelvis Wo(Kidney Stone) (07/04/21 13:28) Ua Culture If Indicated (07/04/21 13:36) Ondansetron Oral Dissolve Tab (Zofran (07/04/21 14:15) Ondansetron Oral Dissolve Tab (Zofran (07/04/21 14:12) Medications Given in ED Current Medications Medications Dose Ordered Sig/Paloma Route Start Time Stop Time Status Last Admin Dose Admin Ondansetron HCl 8 mg ONCE ONCE PO 07/04/21 14:15 07/04/21 14:16 DC 07/04/21 14:13 8 MG Vital Signs/I&O 07/04/21 13:30 Temp 36.8 Pulse 60 Resp 16 B/P (MAP) 135/85 (102) Pulse Ox 97 Capillary Refill : Departure Communication (Admissions) Family Conversation NAME: ARIADNE COBIAN [facility] REC#: [id number] PT STATUS: REG ER : 1980 PHYSICIAN: SONG SANTOS APRN ADMIT DATE: 07/04/21/ER Draft Date of Exam:07/04/21 CT ABD/PELVIS WO(KIDNEY STONE) EXAMINATION: CT abdomen and pelvis without contrast. TECHNIQUE: Multiple contiguous axial images were obtained through the abdomen and pelvis without the use of intravenous contrast. All CT scans use one or more of the following dose optimizing techniques: automated exposure control, MA and/or KvP adjustment based on patient size and exam type or iterative reconstruction. HISTORY: Flank pain. COMPARISON: 08/24/2019 FINDINGS: Limited views of the lower thorax are unremarkable. The liver is normal without focal lesion. There is no biliary ductal dilation. Gallbladder surgically absent. Pancreas is normal. Spleen is normal. Adrenal glands are normal. The kidneys are normal. There is no hydronephrosis. Urinary bladder is normal. There are no renal or ureteral stones. Visualized bowel is normal in caliber without obstruction or inflammation. No free fluid or air. No abdominal or pelvic lymphadenopathy. Aorta is normal in caliber without aneurysm. There are no suspicious osseous lesions. IMPRESSION: 1. No renal or ureteral stones. Dictated on workstation # [id number] Dict: 07/04/21 1408 Trans: 07/04/21 1411 [id number] Interpreted by: VICKI TRIMBLE MD Electronically signed by: Impression Primary Impression: Bleeding hemorrhoids Disposition: HOME, SELF-CARE Condition: Stable Departure-Patient Inst. Decision time for Depature: 14:25 [facility]: [facility] ([facility]P) Primary Care Physician HILDA WOLF (Family) Primary Care Physician Patient Instructions: Hemorrhoids ED SONG SANTOS APRN Jul 04, 2021 13:33
[2021-07-04 13:43] LABS: BASOPHILS # (AUTO) 0.1 10^3/uL (0.0-0.1); BASOPHILS % (AUTO) 1 % (0-10); EOSINOPHILS # (AUTO) 0.5 10^3/uL (0.0-0.3); EOSINOPHILS % (AUTO) 5 % (0-10); HEMATOCRIT 43 % (35-52); HEMOGLOBIN 14.9 g/dL (11.5-16.0); LYMPHOCYTES # (AUTO) 3.8 10^3/uL (1.0-4.0); LYMPHOCYTES % (AUTO) 42 % (12-44); MEAN CORPUSCULAR HEMOGLOBIN 32 pg (25-34); MEAN CORPUSCULAR HGB CONC 35 g/dL (32-36); MEAN CORPUSCULAR VOLUME 92 fL (80-99); MEAN PLATELET VOLUME 10.8 fL (9.0-12.2); MONOCYTES # (AUTO) 0.8 10^3/uL (0.0-1.0); MONOCYTES % (AUTO) 9 % (0-12); NEUTROPHILS # (AUTO) 3.8 10^3/uL (1.8-7.8); NEUTROPHILS % (AUTO) 42 % (42-75); PLATELET COUNT 310 10^3/uL (130-400); WHITE BLOOD COUNT 8.9 10^3/uL (4.3-11.0)
[2021-07-04 13:54] LABS: ALBUMIN 4.5 GM/DL (3.2-4.5)
[2021-07-04 13:55] LABS: CALCIUM 9.6 MG/DL (8.5-10.1)
[2021-07-04 13:56] LABS: PROTHROMBIN TIME PATIENT 13.1 SEC (12.2-14.7); TOTAL PROTEIN 7.4 GM/DL (6.4-8.2)
[2021-07-04 13:58] LABS: BILIRUBIN,TOTAL 0.9 MG/DL (0.1-1.0)
[2021-07-04 14:00] LABS: CREATININE SERUM 0.72 MG/DL (0.60-1.30)
[2021-07-04] MEDS ORDERED: ONDANSETRON 4 MG (ZOFRAN) ORAL DISSOLVE TAB ONE (14:12)
--- NOTE | 2021-07-04 14:12 | Diagnostic Imaging Report ---
EXAMINATION: CT abdomen and pelvis without contrast. TECHNIQUE: Multiple contiguous axial images were obtained through the abdomen and pelvis without the use of intravenous contrast. All CT scans use one or more of the following dose optimizing techniques: automated exposure control, MA and/or KvP adjustment based on patient size and exam type or iterative reconstruction. HISTORY: Flank pain. COMPARISON: 08/24/2019 FINDINGS: Limited views of the lower thorax are unremarkable. The liver is normal without focal lesion. There is no biliary ductal dilation. Gallbladder surgically absent. Pancreas is normal. Spleen is normal. Adrenal glands are normal. The kidneys are normal. There is no hydronephrosis. Urinary bladder is normal. There are no renal or ureteral stones. Visualized bowel is normal in caliber without obstruction or inflammation. No free fluid or air. No abdominal or pelvic lymphadenopathy. Aorta is normal in caliber without aneurysm. There are no suspicious osseous lesions. IMPRESSION: 1. No renal or ureteral stones. Dictated by: Dictated on workstation # [id number]
[2021-07-04] MEDS ORDERED: ONDANSETRON 4 MG (ZOFRAN) ORAL DISSOLVE TAB PO ONE (14:15)
[2021-07-04 14:55] VITALS: BP 130/80
== END 2021-07-04 14:57 | disposition home or self-care (01) ==
LOC: EDUNIT# 12:50 → ER 12:52
DX: K64.8 Other hemorrhoids (principal); E03.9 Hypothyroidism, unspecified; G40.909 Epilepsy, unspecified, not intractable, without status epilepticus; K21.9 Gastro-esophageal reflux disease without esophagitis; Z79.899 Other long term (current) drug therapy; Z79.890 Hormone replacement therapy
CPT/HCPCS: 36415; 74176; 80053; 85025; 85610

== ENCOUNTER 2022-09-19 12:27 | Emergency (ER) | payer MEDICARE ==
[~2022-09-19] VITALS: Ht 165 cm; Wt 81.0 kg
[2022-09-19 12:45] VITALS: BP 131/91
[2022-09-19] MEDS ORDERED: morphine INJ 10 MG/ML 1ML (SYR OR VIAL) IVP STA (13:24)
--- NOTE | 2022-09-19 13:28 | ED GI ---
General Chief Complaint: Abdominal/GI Problems Stated Complaint: VOMITING/HEADACHE/UPPER ABD PAIN Nursing Triage Note: PT STATES HAS ABD PAIN, PT STATES HAS INTUSSEPTION AND WAS AT [facility] THIS AM AND HAD CT SCAN. DR AMES CONSULTED BY ED STAFF THERE. PT HAS SHARP PAIN 10/10, BARLOW 7/10. PT STATES UNABLE TO EAT OR DRINK, PT HAS SMALL BM YESTERDAY Source of Information: Patient Exam Limitations: No Limitations History of Present Illness Date Seen by Provider: Sep 19, 2022 Time Seen by Provider: 12:50 Initial Comments Patient is a 42-year-old female who presents to the emergency department for evaluation of abdominal that has been present since yesterday. Patient was seen in outside hospital where CT scan showed likely transient intussusception without any other acute findings. General surgery at this hospital was contacted who did not recommend any urgent surgical intervention. Evaluation was otherwise reassuring. Patient was also having a headache and a CT of the head was done that was acutely negative. Laboratory evaluation was largely unremarkable. Patient was discharged from that facility. Patient has also been having vomiting. She states the pain is mostly in her epigastric region. States she has also had some constipation. No fever. No chest pain. Patient presents here for further evaluation given the symptoms have not improved. Allergies and Home Medications Allergies Coded Allergies: latex (Unverified Allergy, Unknown, 04/19/19) Patient Home Medication List Home Medication List Reviewed: Yes Gabapentin (Neurontin) 800 Mg Tablet, 800 MG PO TID, (Reported) Entered as Reported by: NORIS GTZ on 04/19/19 1231 Hydrocodone Bit/Acetaminophen (HYDROcodone/APAP 5 MG/325 MG TAB) 1 Tab Tab, 1 TAB PO Q6H PRN for PAIN-MODERATE (5-7) Prescribed by: Fabián Wilson on 09/19/22 1527 Levothyroxine Sodium (Levothyroxine Sodium) 112 Mcg Tablet, 112 MCG PO DAILY, (Reported) Entered as Reported by: NORIS GTZ on 04/19/19 1230 Nitrofurantoin Monohyd/M-Cryst (Macrobid 100 mg Capsule) 100 Mg Capsule, 1 TAB PO BID Prescribed by: ALBERT CUMMINS on 08/24/19 1835 Ondansetron (Ondansetron Odt) 4 Mg Tab.rapdis, 4 MG SL Q4H PRN for NAUSEA/VOMITING Prescribed by: Fabián Wilson on 09/19/22 1527 Sucralfate (Carafate) 1 Gm Tablet, 1 GM PO QID Prescribed by: OG MAXWELL on 11/02/19 1533 Review of Systems Review of Systems Constitutional: no symptoms reported EENTM: No Symptoms Reported Respiratory: No Symptoms Reported Cardiovascular: No Symptoms Reported Gastrointestinal: See HPI, Abdominal Pain, Constipated, Nausea, Vomiting Genitourinary: No Symptoms Reported Musculoskeletal: no symptoms reported Skin: no symptoms reported Psychiatric/Neurological: See HPI, Headache Endocrine: No Symptoms Reported Hematologic/Lymphatic: No Symptoms Reported Past Igumjvj-Mozije-Zzcwwm Hx Patient Social History Tobacco Use?: No Substance use?: No Alcohol Use?: No Pt feels they are or have been: No Immunizations Up To Date Tetanus Booster (TDap): Unknown Influenza Vaccine Up-to-Date: No; Not Current First/Initial COVID19 Vaccinat: YES Second COVID19 Vaccination Shashi: YES Seasonal Allergies Seasonal Allergies: No Past Medical History Surgery/Hospitalization HX: APPY, GB, HYST, HYPOTHROIDISM, C-SECTIONS, D AND C X2, NECK AND BACK SURG Surgeries: Yes (LUMBAR DISCECTOMY, CERCIAL LAMINECTOMY, URINARY DILITATION (1999)) Appendectomy, Section, Gallbladder, Hysterectomy, Tonsillectomy Respiratory: No Cardiac: No Neurological: Yes (LAST SEIZURE 2008) Headaches /Migraines, Seizure Disorder Reproductive Disorders: Yes (ENDOMETRIOSIS) Female Reproductive Disorders: Menstrual Problems, Endometriosis 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 History: Hysterectomy Sexually Transmitted Disease: No Genitourinary: Yes (URINARY INCONTINENCE, URINARY RETENTION IN 1999) Gastrointestinal: Yes (gastritis) Colitis, Gastroesophageal Reflux, Gastrointestinal Bleed, Hemorrhoids Musculoskeletal: Yes Degenerate Disk Disease, Chronic Back Pain Endocrine: Yes Hypothyroidsim HEENT: No Cancer: No Psychosocial: No Integumentary: No Blood Disorders: Yes (ANEMIA PRIOR TO HYSTERECTOMY, NO PROBLEMS SINCE) Adverse Reaction/Blood Tranf: No Family Medical History No Pertinent Family Hx Physical Exam Vital Signs Vital Signs - First Documented 09/19/22 12:45 Temp 36.9 Pulse 73 Resp 18 B/P (MAP) 131/91 (104) Pulse Ox 98 Capillary Refill : Height/Weight/BMI Height: 5'5.00" Weight: 206lbs. 0.0oz. 93.644089pw; 29.00 BMI Method:Stated General Appearance: WD/WN, no apparent distress HEENT: PERRL/EOMI, normal ENT inspection, TMs normal, pharynx normal Neck: non-tender, full range of motion, supple, normal inspection Respiratory: chest non-tender, lungs clear, normal breath sounds, no respiratory distress, no accessory muscle use Cardiovascular: regular rate, rhythm Gastrointestinal: normal bowel sounds, non tender, soft Neurologic/Psychiatric: no motor/sensory deficits, alert, normal mood/affect, oriented x 3 Skin: normal color, warm/dry Progress/Results/Core Measures Results/Orders Lab Results Laboratory Tests Test 09/19/22 13:20 Range/Units White Blood Count 9.9 4.3-11.0 10^3/uL Red Blood Count 5.24 H 3.80-5.11 10^6/uL Hemoglobin 15.9 11.5-16.0 g/dL Hematocrit 47 35-52 % Mean Corpuscular Volume 90 80-99 fL Mean Corpuscular Hemoglobin 30 25-34 pg Mean Corpuscular Hemoglobin Concent 34 32-36 g/dL Red Cell Distribution Width 12.0 10.0-14.5 % Platelet Count 329 130-400 10^3/uL Mean Platelet Volume 10.4 9.0-12.2 fL Immature Granulocyte % (Auto) 1 % Neutrophils (%) (Auto) 57 42-75 % Lymphocytes (%) (Auto) 32 12-44 % Monocytes (%) (Auto) 6 0-12 % Eosinophils (%) (Auto) 3 0-10 % Basophils (%) (Auto) 1 0-10 % Neutrophils # (Auto) 5.7 1.8-7.8 10^3/uL Lymphocytes # (Auto) 3.2 1.0-4.0 10^3/uL Monocytes # (Auto) 0.6 0.0-1.0 10^3/uL Eosinophils # (Auto) 0.3 0.0-0.3 10^3/uL Basophils # (Auto) 0.1 0.0-0.1 10^3/uL Immature Granulocyte # (Auto) 0.1 0.0-0.1 10^3/uL Sodium Level 140 135-145 MMOL/L Potassium Level 3.6 3.6-5.0 MMOL/L Chloride Level 106 98-107 MMOL/L Carbon Dioxide Level 22 21-32 MMOL/L Anion Gap 12 5-14 MMOL/L Blood Urea Nitrogen 8 7-18 MG/DL Creatinine 0.79 0.60-1.30 MG/DL Estimat Glomerular Filtration Rate 96 BUN/Creatinine Ratio 10 Glucose Level 79 70-105 MG/DL Calcium Level 9.4 8.5-10.1 MG/DL Corrected Calcium 8.5-10.1 MG/DL Total Bilirubin 1.2 H 0.1-1.0 MG/DL Aspartate Amino Transf (AST/SGOT) 17 5-34 U/L Alanine Aminotransferase (ALT/SGPT) 21 0-55 U/L Alkaline Phosphatase 79 40-136 U/L Total Protein 8.2 6.4-8.2 GM/DL Albumin 4.8 H 3.2-4.5 GM/DL My Orders Orders - FABIÁN WILSON TOBACCO WETTER Cbc With Automated Diff (09/19/22 13:24) Comprehensive Metabolic Panel (09/19/22 13:24) Iv/Invasive Line Insertion .IV INSERT (09/19/22 13:24) Morphine Injection (Morphine Injection (09/19/22 13:24) Ondansetron Injection (Zofran Injectio (09/19/22 13:30) Abdomen, Flat & Upright/Decub (09/19/22 14:00) Antacid Suspension (Mylanta Suspension (09/19/22 14:00) Pantoprazole Injection (Protonix Injecti (09/19/22 14:00) Lactated Ringers (Lr 1000 Ml Iv Solution (09/19/22 14:15) Metoclopramide Injection (Reglan Injecti (09/19/22 14:45) Medications Given in ED Vital Signs/I&O 09/19/22 12:45 Temp 36.9 Pulse 73 Resp 18 B/P (MAP) 131/91 (104) Pulse Ox 98 Blood Pressure Mean: 104 Progress Progress Note : Progress Note Patient is nontoxic and well-hydrated on exam. There is some epigastric tenderness to palpation on abdominal exam. No abdominal rigidity/distention appreciated. Vital signs are reassuring without tachycardia or fever. Blood pressure is also reassuring. Laboratory evaluation largely unremarkable. Urinalysis also largely unremarkable. I spoke with Dr. Ames with general surgery who states there is no indication for urgent surgical intervention at this time. He states most intussusceptions in adults are transient. There was no evidence of proximal dilation on the CT scan which makes the intussusception likely self-limiting. Upright and flat abdominal films were obtained which shows no findings concerning for obstruction. Patient was given medications for pain and nausea while in the department. She states the pain improved some. Patient will be discharged home with medications for the same. Follow-up with her PCP on Wednesday. Return precautions for urgent symptomology discussed. Patient verbalized understanding. Departure Impression Primary Impression: Epigastric pain Additional Impression: Nausea & vomiting Qualified Codes: R11.2 - Nausea with vomiting, unspecified Disposition: HOME, SELF-CARE Condition: Stable Departure-Patient Inst. Decision time for Depature: 15:25 Referrals: [facility]/ (PCP) Primary Care Physician BLAIR ST APRN (Family) Primary Care Physician Patient Instructions: Abdominal Pain, Adult ED, Nausea and Vomiting, Adult ED Scripts Ondansetron (Ondansetron Odt) 4 Mg Tab.rapdis 4 MG SL Q4H PRN for NAUSEA/VOMITING for 3 Days, #12 TAB 0 Refills Prov: FABIÁN WILSON APRN 09/19/22 Hydrocodone Bit/Acetaminophen (HYDROcodone/APAP 5 MG/325 MG TAB) 1 Tab Tab 1 TAB PO Q6H PRN for PAIN-MODERATE (5-7) for 3 Days, #12 TAB 0 Refills Prov: FABIÁN WILSON APRN 09/19/22 FABIÁN WILSON APRN Sep 19, 2022 13:28
[2022-09-19] MEDS ORDERED: ONDANSETRON 4 MG/2 ML (SDV) Z0FRAN IVP ONE (13:30)
[2022-09-19 13:33] LABS: BASOPHILS # (AUTO) 0.1 10^3/uL (0.0-0.1); BASOPHILS % (AUTO) 1 % (0-10); EOSINOPHILS # (AUTO) 0.3 10^3/uL (0.0-0.3); EOSINOPHILS % (AUTO) 3 % (0-10); HEMATOCRIT 47 % (35-52); HEMOGLOBIN 15.9 g/dL (11.5-16.0); LYMPHOCYTES # (AUTO) 3.2 10^3/uL (1.0-4.0); LYMPHOCYTES % (AUTO) 32 % (12-44); MEAN CORPUSCULAR HEMOGLOBIN 30 pg (25-34); MEAN CORPUSCULAR HGB CONC 34 g/dL (32-36); MEAN CORPUSCULAR VOLUME 90 fL (80-99); MEAN PLATELET VOLUME 10.4 fL (9.0-12.2); MONOCYTES # (AUTO) 0.6 10^3/uL (0.0-1.0); MONOCYTES % (AUTO) 6 % (0-12); NEUTROPHILS # (AUTO) 5.7 10^3/uL (1.8-7.8); NEUTROPHILS % (AUTO) 57 % (42-75); PLATELET COUNT 329 10^3/uL (130-400); WHITE BLOOD COUNT 9.9 10^3/uL (4.3-11.0)
[2022-09-19 13:39] LABS: ALBUMIN 4.8 GM/DL (3.2-4.5); CHLORIDE 106 MMOL/L (98-107); POTASSIUM 3.6 MMOL/L (3.6-5.0); SODIUM 140 MMOL/L (135-145)
[2022-09-19 13:40] LABS: CALCIUM 9.4 MG/DL (8.5-10.1)
[2022-09-19 13:41] LABS: GLUCOSE 79 MG/DL (70-105)
[2022-09-19 13:42] LABS: TOTAL PROTEIN 8.2 GM/DL (6.4-8.2)
[2022-09-19 13:43] LABS: CARBON DIOXIDE 22 MMOL/L (21-32)
[2022-09-19 13:44] LABS: BILIRUBIN,TOTAL 1.2 MG/DL (0.1-1.0)
[2022-09-19 13:45] LABS: ALKALINE PHOSPHATASE 79 U/L (40-136); CREATININE SERUM 0.79 MG/DL (0.60-1.30); GFR ESTIMATED 96
[2022-09-19 13:46] LABS: BUN/CREATININE RATIO 10
[2022-09-19 13:48] LABS: ALANINE AMINOTRANSFERASE 21 U/L (0-55)
[2022-09-19] MEDS ORDERED: ANTACID SUSP 30 ML UDC (MYLANTA) PO ONE (14:00)
[2022-09-19] MEDS ORDERED: PANTOPRAZOLE 40 MG (PROTONIX) VIAL IV ONE (14:00)
[2022-09-19] MEDS ORDERED: LACTATED RINGERS 1,000 ML IV SCH (14:15)
--- NOTE | 2022-09-19 14:34 | Diagnostic Imaging Report ---
INDICATION: Vomiting, epigastric pain COMPARISON: 07/04/2021 TECHNIQUE: 3 radiographs of the abdomen dated 09/19/2022. FINDINGS: The minimally visualized lung bases are clear. Surgical clips are present in the right upper abdomen. Gas and stool is noted throughout the colon, including extending to the lower pelvis. No abnormally dilated loops of large or small bowel. No differential air-fluid levels. No free air. Contrast is noted within the urinary bladder related to prior CT examination. Minimal apex right curvature of the spine. No acute osseous abnormality. IMPRESSION: Nonobstructive bowel gas pattern without free air. Dictated by: Dictated on workstation # [id number]
[2022-09-19] MEDS ORDERED: METOCLOPRAMIDE INJ 10 MG/2 ML (REGLAN) IVP ONE (14:45)
[2022-09-19] MEDS ORDERED: ACHD5005 PO ×2 (15:26→15:27)
[2022-09-19] MEDS ORDERED: ONDA4TAB11 SL ×2 (15:26→15:27)
== END 2022-09-19 15:34 | disposition home or self-care (01) ==
LOC: EDUNIT# 12:27 → ER 12:31
DX: R10.13 Epigastric pain (principal); R11.2 Nausea with vomiting, unspecified; Z91.040 Latex allergy status; Z87.19 Personal history of other diseases of the digestive system; Z90.49 Acquired absence of other specified parts of digestive tract
CPT/HCPCS: 36415; 74019; 80053; 85025

== ENCOUNTER → 2022-09-30 | Outpatient (CLI) | payer MEDICARE ==
[~2022-09-30] MED LIST changes: +ACHD5005 PO; +GADOTERATE 0.5 MMOL/ML (CLARISCAN) 20 ML VIAL IV ONE; +ONDA4TAB11 SL
--- NOTE | 2022-09-30 14:41 | Diagnostic Imaging Report ---
EXAMINATION: MRI of the abdomen with and without contrast. TECHNIQUE: Multiplanar, multisequence MR images of the abdomen were obtained with and without intravenous contrast. HISTORY: Pancreatic cyst. COMPARISON: 04/20/2019. FINDINGS: Liver: No suspicious liver lesions. No steatosis. No surface nodularity. Ducts: No biliary ductal dilation. Gallbladder: Absent. Pancreas: There is an unchanged 2.5 x 1.5 cm cyst in the head of the pancreas. No enhancing mural nodules or internal soft tissue is seen. No ductal dilation or atrophy of the pancreas. Spleen: Normal. Adrenals: Normal. Kidneys: No suspicious lesions. No hydronephrosis. Bowel: Normal. Other: No lymphadenopathy. Visualized portions of the thorax are normal. No suspicious osseous lesions. IMPRESSION: 1. 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 Continued annual follow-up recommended. Dictated by: Dictated on workstation # [id number]
== END ==
LOC: RAD 12:30
PROVIDERS: ATTEND Nurse Practitioner Family
DX: K86.2 Cyst of pancreas (principal); E27.9 Disorder of adrenal gland, unspecified; K56.1 Intussusception
CPT/HCPCS: 74183

== ENCOUNTER → 2022-11-24 | Outpatient (CLI) | payer MEDICARE ==
[~2022-11-24] MED LIST changes: -GADOTERATE 0.5 MMOL/ML (CLARISCAN) 20 ML VIAL IV ONE
--- NOTE | 2022-11-24 14:16 | Diagnostic Imaging Report ---
INDICATION: 42-year-old female, melanoma. The patient was administered a solid test meal with 1.0 mCi Tc 99M sulfur colloid used for labeling of the meal. Region of interest curves were drawn over the stomach with the percent of retained activity calculated at hourly timed intervals for a total of 4 hours. A time activity curve was generated. FINDINGS: Percent retention as follows: (percent of administered activity retained within the stomach): 1.0 hour: 18% {<30% = Rapid, >90% = Delayed} 2.0 hour: 3% {>60% = Abnormally Delayed} 3.0 hour: 1% {>30% = Abnormally Delayed} 4.0 hour: 2% {>10% = Abnormally Delayed} IMPRESSION: Rapid gastric emptying at all timed intervals. Dictated by: Dictated on workstation # [id number]
== END ==
LOC: CARD 08:23
PROVIDERS: ATTEND Internal Medicine Gastroenterology
DX: K92.1 Melena (principal); R68.81 Early satiety; K44.9 Diaphragmatic hernia without obstruction or gangrene; R12 Heartburn; R11.2 Nausea with vomiting, unspecified
CPT/HCPCS: 78264; A9541

== ENCOUNTER 2023-01-13 11:32 | Day surgery (SDC) | payer MEDICARE ==
[~2023-01-13] VITALS: Ht 165.1 cm; Wt 77.1 kg
--- NOTE | 2023-01-13 11:57 | HISTORY AND PHYSICAL ---
DATE OF SERVICE: 01/13/2023 DATE OF ADMISSION: Will be 01/13/2023. ATTENDING PRIMARY CARE PHYSICIAN: Dr. Lurdes Alas at [facility]. The patient is a 42-year-old female known to us. She has had some issues with crampy lower abdominal pain and also has had some issues with dysphagia. On 11/02/2019, she underwent an EGD as well as biopsy and balloon dilatation for a mild distal esophageal stricture. She was also found to have a moderate hiatal hernia, 2.5 cm in size. Biopsies were negative for H. pylori as well as negative for Jacob's esophagus. In 09/2022, she again developed crampy abdominal pain and underwent a CT scan. She also underwent an MRI, which did show a pancreatic head lesion 2.5 x 1.5 cm in size, with the differential including an intraductal papillary mucinous neoplasm. The patient was sent to a civil draftsman in [place] where an ultrasound was performed and this appeared to be benign. She was then sent to [facility] and again an endoscopic ultrasound was performed and the fluid was aspirated and consistent with a benign cyst. The recommendation was continued to follow up every 6 months. On today's visit, her chief complaint is reflux and dysphagia. She has had this issue for years and again she has a known history of a moderate size hiatal hernia. She reports that after eating meals, she will have substernal pressure sensation as well as a reflux and regurgitation. This has been despite medical therapy including small and more frequent meals, avoidance of eating at night and avoidance of any risk factors. She does not smoke, drink alcohol and does not drink any caffeinated beverages. She is interested in repair of the hiatal hernia as well as an antireflux procedure and we will repeat the EGD to see if there is any change in the size of the hiatal hernia as well as schedule her for an esophageal manometry study to rule out any esophageal dysmotility disorder. PAST MEDICAL HISTORY: Gastroesophageal reflux disease, peptic ulcer disease, history of pancreatitis and a pancreatic head cyst, neuropathy, spinal stenosis, anxiety, hypothyroid, hiatal hernia, TIA 2008, seizure disorder, cardiovascular disease. PAST SURGICAL HISTORY: Tonsillectomy, appendectomy 1999, cholecystectomy 2007, dilatation and curettage x2, 1998 and 2003. Total hysterectomy 2010. L4-L5 laminectomy 2014; C6-C7 diskectomy 2017. ALLERGIES: LATEX, LAMICTAL, CLINDAMYCIN, NORTRIPTYLINE. MEDICATIONS: Promethazine 25 mg every 6 hours p.r.n., Wegovy subcutaneous daily, fluticasone 50 mcg daily, fluvoxamine 100 mg daily, meclizine 25 mg b.i.d., gabapentin 600 mg t.i.d., clonazepam 0.5 mg daily, hydrocodone p.r.n., levothyroxine 175 mcg daily, Carafate daily, albuterol 108 mcg daily, estradiol 1 mg daily, furosemide 20 mg daily, baclofen 20 mg daily, Protonix 40 mg daily. SOCIAL HISTORY: Previous smoker, quit 2019, 12-pack year. Negative alcohol. FAMILY HISTORY: Noncontributory. VITAL SIGNS: Blood pressure 110/76. Current weight 168.2 pounds at 5 feet 5 inches. REVIEW OF SYSTEMS: Well-nourished female in no acute distress. She is not experiencing any shortness of breath or difficulty breathing. No chest pain, palpitations, diaphoresis. However, does have epigastric burning sensation as well as a substernal pressure sensation on an intermittent basis. No hematemesis, no coffee-ground emesis. She has had some intermittent episodes of constipation, no red blood per rectum, no dark tarry stools. No fever, chills, no recent inadvertent weight loss. All other review of systems negative. PHYSICAL EXAMINATION: CHEST: Clear. Good breath sounds bilaterally. HEART: Regular. No murmurs. EXTREMITIES: No lower extremity edema. Negative Homans sign. HEENT: No scleral icterus. No cervical lymphadenopathy. ABDOMEN: Soft, nondistended. There is mild discomfort in the epigastric region upon deep palpation. No hernias. SKIN: Warm, dry. ASSESSMENT AND PLAN: A 42-year-old female with symptomatic hiatal hernia. Natural history of moderate size hiatal hernias were explained to the patient including recurrent episodes of reflux, epigastric burning sensation as well as the development of dysphagia. She is in full understanding of this and would like to proceed with the steps necessary to proceed with a hiatal hernia repair, which would encompass a repeat EGD and biopsies as appropriate as well as an esophageal manometry study to rule out an esophageal dysmotility disorder. Once these tests are performed, we will then proceed with scheduling her for a hiatal hernia repair as well as some form of antireflux procedure based on her manometric study results. Job ID: [id number] DocumentID: [id number] Dictated Date: 01/12/2023 17:05:21 Railroad Worker Date: 01/12/2023 17:31:00 Dictated By: OG MAXWELL MD MTDD
[2023-01-13 12:05] VITALS: BP 112/61
[2023-01-13] MEDS ORDERED: LACTATED RINGERS 1,000 ML IV STA (13:28)
--- NOTE | 2023-01-13 13:29 | Progress Note-Pre Operative ---
Pre-Operative Progress Note Date of Available H&P: Jan 13, 2023 Date H&P Reviewed: Jan 13, 2023 Time H&P Reviewed: 13:00 History & Physical: No changes noted Pre-Operative Diagnosis: GERD, hiatal hernia OG MAXWELL MD Jan 13, 2023 13:29
[2023-01-13] MEDS ORDERED: HURRICAINE EXT TUBE (BENZOCAINE) XX PRN (13:30)
[2023-01-13] MEDS ORDERED: LIDOCAINE JELLY 2% 6 ML SYRINGE MM PRN (13:30)
[2023-01-13] MEDS ORDERED: MIDAZOLAM 2 MG/2 ML (VERSED) VIAL ONE (13:37)
[2023-01-13] MEDS ORDERED: proPOfol 200 MG/20 ML (DIPRIVAN) VIAL IV ONE ×2 (13:37→13:55)
[2023-01-13] MEDS ORDERED: LIDOCAINE JELLY 2% 6 ML SYRINGE ONE (13:44)
[2023-01-13] MEDS ORDERED: ESTR1TAB27 PO (13:54)
[2023-01-13] MEDS ORDERED: PANT40TA52 PO (13:54)
[2023-01-13] MEDS ORDERED: LEVO175T5 PO (13:54)
[2023-01-13] MEDS ORDERED: CLON0.5T4 PO (13:54)
[2023-01-13] MEDS ORDERED: GBPN600T PO (13:54)
[2023-01-13] MEDS ORDERED: IBUP-1780 PO (13:54)
[2023-01-13] MEDS ORDERED: BACL10TA PO (13:54)
[2023-01-13 14:00] VITALS: BP 96/51
[2023-01-13 14:02] VITALS: BP 96/51
--- NOTE | 2023-01-13 14:04 | Anesthesia-General Post-Op ---
MAC Patient Condition Mental Status/LOC: Same as Preop Cardiovascular: Satisfactory Nausea/Vomiting: Absent Respiratory: Satisfactory Pain: Controlled Complications: Absent Post Op Complications Complications None Follow Up Care/Instructions Patient Instructions None needed. Anesthesiology Discharge Order Discharge Order Patient is doing well, no complaints, stable vital signs, no apparent adverse anesthesia problems. No complications reported per nursing. LUCILA CLEVELAND CRNA Jan 13, 2023 14:04
--- NOTE | 2023-01-13 14:09 | Progress Note-Post Operative ---
Post-Operative Progess Note Surgeon (s)/Hot Tamale Man (s) Surgeon OG MAXWELL MD Hot Tamale Man: none Pre-Operative Diagnosis GERD, hiatal hernia Post-Operative Diagnosis reflux esophagitis(grade B), moderate HH(3cm), moderate gastritis. Procedure & Operative Findings Date of Procedure 01/13/23 Procedure Performed/Findings EGD with bx. Anesthesia Type mac Estimated Blood Loss Estimated blood loss (mL): minimal Specimens/Packing Specimens Removed ge jxn, antrum OG MAXWELL MD Jan 13, 2023 14:09
[2023-01-13 14:25] VITALS: BP 105/59
[2023-01-13 14:35] VITALS: BP 105/59
--- NOTE | 2023-01-13 21:56 | OPERATIVE REPORT ---
DATE OF SERVICE: 01/13/2023 ATTENDING PRIMARY CARE PHYSICIAN: Lurdes Alas, [facility]. PREOPERATIVE DIAGNOSIS: Symptomatic hiatal hernia. POSTOPERATIVE DIAGNOSES: Reflux esophagitis Crisp grade B, moderate size hiatal hernia approximately 3 cm in size, moderate gastritis, no distal obstructions. PROCEDURE: EGD with biopsy. SURGEON: Og Maxwell MD ANESTHESIA: Monitored anesthesia care. ESTIMATED BLOOD LOSS: Minimal. FINDINGS: Reflux esophagitis Crisp grade B, moderate size hiatal hernia approximately 3 cm in size, moderate gastritis, no distal obstructions. DISPOSITION: The patient tolerated the procedure well. INDICATIONS: The patient is a 42-year-old female known to us. She has had some issues with crampy abdominal pain as well as issues with dysphagia. On 11/02/2019, she underwent an EGD and was found to have a mild distal esophageal stricture and this was balloon dilated. She was also found to have a moderate size hiatal hernia approximately 2.5 cm in size. Biopsies were negative for H. pylori as well as negative for Jacob's esophagus. In 09/2022, she developed crampy abdominal pain. A CT scan was performed, which showed a pancreatic head lesion approximately 2.5 x 1.5 cm in size. This was followed by an MRI, the radiologist's interpretation was that could not exclude an intraductal papillary mucinous neoplasm. She was seen by Gastroenterology, where endoscopic ultrasound was performed, which showed benign features. She was then referred to [facility] and again endoscopic ultrasound and aspiration was performed and consistent with a benign cyst and the recommendation was to proceed with a followup in 6 months. We had seen her in the office with a chief complaint of worsening reflux and dysphagia, which she has had for years; however, has worsened in the past year. She states during eating meals with some food boluses, she would feel substernal pressure sensation as well as reflux and regurgitation. Despite medical therapy including small and more frequent meals and avoidance of eating at night or overeating, she has had continued symptoms. She is interested in repair of the hiatal hernia as well as an antireflux procedure and she is now here for an EGD. DESCRIPTION OF PROCEDURE: The patient was brought to the endoscopy suite and laid in the left lateral decubitus position. After adequate IV pain, sedative medications and monitored anesthesia care, the mouthpiece was applied. The endoscope was placed in the mouth, visualizing the pharynx and hypopharyngeal region. Vocal cords, epiglottis and vallecula identified and appeared to be normal. Endoscope was then gently intubated into the esophageal opening and esophagus insufflated. The endoscope was then advanced through the first, second, third portions of esophagus. At the level of the GE junction, reflux esophagitis, Crisp grade B identified. No ulcers or strictures identified. A biopsy was taken with forceps with visualization of good hemostasis. The endoscope was then advanced into the stomach and endoscope retroflexed visualizing a moderate size hiatal hernia, which was estimated to be 3 cm in size. This appeared to be a type 1 sliding hiatal hernia. There was a moderate severity gastritis. No formal ulcers, polyps, or any neoplasms. A biopsy was taken of the antrum to rule out H. pylori with visualization of good hemostasis. The endoscope was then advanced through the pylorus and the first and second portions of the duodenum, which appeared normal. No ulcerations or any distal obstructions. The endoscope was then slowly withdrawn while taking a second look and suctioning of residual air with no additional findings. The patient tolerated the procedure well. We will continue with medical management for now; however, she continued to be symptomatic and is interested in proceeding with repair of the hiatal hernia as well as an antireflux procedure and we will schedule her for an esophageal manometry study. Based on the results of this, we will make a determination on what type of antireflux procedure to proceed with Job ID: [id number] DocumentID: [id number] Dictated Date: 01/13/2023 14:05:13 Car Installations Supervisor Date: 01/13/2023 21:53:00 Dictated By: OG MAXWELL MD [facility]
== END 2023-01-13 14:35 | disposition home or self-care (01) ==
LOC: ENDO 11:32
PROVIDERS: ATTEND Surgery
DX: K21.00 Gastro-esophageal reflux disease with esophagitis, without bleeding (principal); K44.9 Diaphragmatic hernia without obstruction or gangrene; K29.50 Unspecified chronic gastritis without bleeding; Z87.891 Personal history of nicotine dependence

== ENCOUNTER 2023-02-25 08:07 | Outpatient (CLI) | payer MEDICARE ==
[~2023-02-25] VITALS: Ht 165.1 cm; Wt 74.1 kg
[~2023-02-25 08:07] MED LIST changes: +BACL10TA PO; +CLON0.5T4 PO; +ESTR1TAB27 PO; +GBPN600T PO; +IBUP-1780 PO; +LEVO175T5 PO; +PANT40TA52 PO
[2023-02-25] MEDS ORDERED: MECL-149 PO (11:10)
[2023-02-25] MEDS ORDERED: FLUT9.9S NS (11:10)
[2023-02-25] MEDS ORDERED: RT-ALBUINH INH (11:10)
[2023-02-25] MEDS ORDERED: MV-M1TAB20 PO (11:10)
[2023-02-25] MEDS ORDERED: PROM25TA14 PO (11:10)
[2023-02-25] MEDS ORDERED: FLUV100T21 PO (11:10)
[2023-02-25] MEDS ORDERED: MULT-1136 PO (11:10)
== END 2023-02-25 11:11 ==
LOC: PREOP 08:07
PROVIDERS: ATTEND Surgery
DX: Z01.818 Encounter for other preprocedural examination (principal)

== ENCOUNTER 2023-03-04 09:47 | Day surgery (SDC) | payer MEDICARE ==
--- NOTE | 2023-02-28 16:33 | HISTORY AND PHYSICAL ---
DATE OF ADMISSION: 03/04/2023. ATTENDING PRIMARY CARE PHYSICIAN: Dr. Bobby Alas. HISTORY OF PRESENT ILLNESS: The patient is a 43-year-old female known to us. She has had some past history of crampy abdominal pain as well as dysphagia. On 11/02/2019, she underwent an EGD and was found to have a mild distal esophageal stricture and underwent balloon dilatation. There was also found to have a moderate hiatal hernia, 2.5 cm in size. Biopsies were negative for H. pylori as well as negative for Jacob's esophagus. In 09/2022, she developed crampy abdominal pain, underwent a CT scan. Lesion was detected and the head of the pancreas and then she underwent an MRI, which showed a lesion 2.5 x 1.5 cm in size. She was referred to Gastroenterology and underwent an EGD on 11/02/2022 and underwent an endoscopic ultrasound. There was no ductal dilatation. There was a multiseptated cyst in the pancreatic neck, 2.5 x 1.8 cm in size. There was no communication with the main pancreatic duct. She also underwent an ultrasound-guided aspiration where 0.6 mL of serous fluid was removed and sent for analysis. The fluid was sent for molecular testing with no oncogene point mutations and more consistent with inflammatory pseudocyst or a serous cystadenoma and completely benign. We had done another EGD on 01/13/2023 for worsening reflux and regurgitation type of symptoms. This was found to have reflux esophagitis, [place] grade B as well as a moderate-sized hiatal hernia, 3 cm in size. No strictures identified. The patient states that she has been following medical management with taking her PPI acid reducers as well as avoidance of caffeinated beverages, spicy, greasy and acidic foods as well as small and more frequent meals, avoidance of eating at night. However, despite this continues to have symptoms, epigastric burning sensation as well as regurgitation. We then schedule her for an esophageal manometry study, which showed a lower esophageal sphincter Intra-abdominal length of approximately negative 1.5 cm consistent with a hiatal hernia and overall length of 2.7 cm. 56% of swallows were normal and 44% and ineffective. Due to these findings, the recommendation is to proceed with a looser hiatal hernia repair as well as a loose antireflux procedure, likely being a posterior 275-degree Toupet wrap. PAST MEDICAL HISTORY: 1. Gastroesophageal reflux disease. 2. Hiatal hernia, peptic ulcer disease, history of pancreatic cyst, neuropathy, spinal stenosis, anxiety, hypothyroid, TIA 2009 seizure disorder, cardiovascular disease. PAST SURGICAL HISTORY: Tonsillectomy, appendectomy 1999, cholecystectomy 2007, dilatation and curettage x2, 1992 and 2003. Total hysterectomy 2010. L4-L5 laminectomy 2015, C6-C7 diskectomy, 17. ALLERGIES: LATEX, LAMICTAL, CLINDAMYCIN, NORTRIPTYLINE. MEDICATIONS: [ ] subcutaneous injection weekly, fluticasone 50 mcg daily, Fluvoxamine 100 mg daily, meclizine 25 mg b.i.d., gabapentin 600 mg t.i.d., clonazepam 0.5 mg daily, hydrocodone p.r.n., levothyroxine 175 mcg daily, Protonix 40 mg daily, baclofen 20 mg daily, furosemide 20 mg daily, albuterol MDI p.r.n., estradiol 1 mg daily. SOCIAL HISTORY: Previous smoke, quit 1912 pack years, negative alcohol. FAMILY HISTORY: Noncontributory. VITAL SIGNS: Blood pressure 110/76. Current weight 168 pounds at 5 feet 5 inches. REVIEW OF SYSTEMS: Well-nourished female in no acute distress. She is not experiencing any shortness of breath or difficulty breathing. No chest pain, palpitations, diaphoresis. Epigastric burning sensation as well as regurgitation, no hematemesis, no coffee-ground emesis. Occasional constipation. No red blood per rectum, no dark tarry stools. No fever, chills, no recent inadvertent weight loss. All other review of systems negative. PHYSICAL EXAMINATION: CHEST: Few scattered wheezes bilaterally. HEART: Regular. No murmurs. EXTREMITIES: No lower extremity edema. Negative Homans sign. HEENT: No scleral icterus. No cervical lymphadenopathy. ABDOMEN: Soft, nontender, nondistended. Mild discomfort in the epigastric region upon deep palpation. SKIN: Warm, dry. ASSESSMENT AND PLAN: A 43-year-old female with symptomatic gastroesophageal reflux disease and regurgitation secondary to moderate size hiatal hernia. The natural history of this process was explained to the patient as well as the risks and benefits of surgery. Based on her esophageal manometry study, we will recommend a laparoscopic hiatal hernia repair as well as a loose antireflux procedure, which would likely encompass a 270-degree posterior wrap, which we will schedule. Job ID: [id number] DocumentID: [id number] Dictated Date: 02/27/2023 18:57:18 Compliance Nurse Date: 02/27/2023 19:44:00 Dictated By: OG MAXWELL MD MTDD
[2023-03-04] VITALS (9 sets, daily range): BP systolic 108–129; BP diastolic 51–73
[~2023-03-04] VITALS: Ht 165 cm; Wt 77.6 kg
[~2023-03-04 09:47] MED LIST changes: +FLUT9.9S NS; +FLUV100T21 PO; +MECL-149 PO; +MULT-1136 PO; +MV-M1TAB20 PO; +PROM25TA14 PO; +RT-ALBUINH INH
[2023-03-04] MEDS ORDERED: ceFAZolin INJECTION 2,000 MG in NS (IVPB) 50 ML IV ONE (10:00)
--- NOTE | 2023-03-04 10:10 | Progress Note-Pre Operative ---
Pre-Operative Progress Note Date H&P Reviewed: Mar 04, 2023 Time H&P Reviewed: 10:05 History & Physical: H&P Reviewed, Patient Examed, No changes noted Pre-Operative Diagnosis: GERD and Hiatal hernia TAYLOR STREETER HYPO SPLASHER Mar 04, 2023 10:10
[2023-03-04] MEDS ORDERED: HYDR118S10 PO (10:11)
[2023-03-04] MEDS ORDERED: ONDA4TAB11 SL (10:11)
--- NOTE | 2023-03-04 10:13 | Discharge Inst-Surgical ---
D/C Lap Instructions-KIDO Reconcile Patient Problems Problems Reviewed?: Yes New, Converted, or Re-Newed RX: RX on Chart Follow Up Appt in 2 weeks Activity as tolerated No driving for 24 hours No driving while on pain medications Incentive Spirometry use every 2 hours while awake Clear liquid diet for 5 days, soft food for 5 days, then regular diet. No carbonated beverages, lettuce, spinach, crackers, or bread for 6 weeks Symptoms to Report: Fever over 101 degree F, Nausea/Vomiting Infection Signs and Symptoms to report: Increased redness, Foul odor of wound, Increased drainage Bathing instructions: May shower Operative Area Clean/Dry; Keep incision clean/dry If any problems/questions: Contact your physician or go to Emergency Room TAYLOR STREETER APRN Mar 04, 2023 10:13
[2023-03-04] MEDS ORDERED: BUP/EPI 0.5% 1:200,000 (SENSORCAINE) 30 ML VIAL ONE (10:25)
[2023-03-04] MEDS ORDERED: MIDAZOLAM 2 MG/2 ML (VERSED) VIAL ONE ×2 (10:25→10:33)
[2023-03-04] MEDS: LACTATED RINGERS 1,000 ML IV PRN ×2 (10:29→12:30)
[2023-03-04] MEDS ORDERED: LIDOCAINE PF 2% 5 ML (XYLOCAINE) VIAL ONE (10:33)
[2023-03-04] MEDS ORDERED: fentaNYL INJ 100 MCG/2 ML AMP ONE ×2 (10:33→12:56)
[2023-03-04] MEDS ORDERED: ONDANSETRON 4 MG/2 ML (SDV) Z0FRAN ONE ×3 (10:33→13:14)
[2023-03-04] MEDS ORDERED: SEVOFLURANE (ULTANE) 15 ML INHAL SOLN ONE ×2 (10:33→12:21)
[2023-03-04] MEDS ORDERED: proPOfol 200 MG/20 ML (DIPRIVAN) VIAL IV ONE (10:33)
[2023-03-04] MEDS ORDERED: NS IV 1000 ML 1,000 ML IV SCH (11:00)
[2023-03-04] MEDS ORDERED: ONDANSETRON 4 MG/2 ML (SDV) Z0FRAN IV PRN (11:00)
[2023-03-04] MEDS ORDERED: metroNIDAZOLE 500MG/100ML IVPB 100 ML IV SCH (11:00)
[2023-03-04] MEDS ORDERED: diphenhydrAMINE 50 MG/ML INJ (BENADRYL) IV PRN (11:00)
[2023-03-04] MEDS ORDERED: NALOXONE 0.4 MG/ML 1 ML (NARCAN) VIAL IV PRN (11:00)
[2023-03-04] MEDS ORDERED: METOCLOPRAMIDE INJ 10 MG/2 ML (REGLAN) IV PRN (11:00)
[2023-03-04] MEDS ORDERED: diphenhydrAMINE 50 MG/ML INJ (BENADRYL) IVP PRN (11:00)
[2023-03-04] MEDS: LACTATED RINGERS 1,000 ML IV SCH ×2 (11:21→16:26)
[2023-03-04] MEDS ORDERED: ROCURONIUM 50 MG/5 ML (ZEMURON) VIAL IV ONE (11:44)
[2023-03-04] MEDS ORDERED: SUCCINYLCHOLINE INJ 20 MG/1 ML 10 ML VIAL ONE (11:44)
--- NOTE | 2023-03-04 12:44 | Progress Note-Post Operative ---
Post-Operative Progess Note Surgeon (s)/Assistant Financial Accountant (s) Surgeon OG MAXWELL MD Assistant Financial Accountant: juan manuel anthony [employer]IST[employer] EXPERT Pre-Operative Diagnosis GERD and Hiatal hernia Post-Operative Diagnosis same Procedure & Operative Findings Date of Procedure 03/04/23 Procedure Performed/Findings laparoscopic hiatal hernia with toupet antireflux procedure. Anesthesia Type get Estimated Blood Loss Estimated blood loss (mL): minimal Specimens/Packing Specimens Removed none OG MAXWELL MD Mar 04, 2023 12:44
[2023-03-04] MEDS: ONDANSETRON 4 MG/2 ML (SDV) Z0FRAN IVP PRN ×2 (12:58→13:16)
[2023-03-04] MEDS ORDERED: morphine INJ 10 MG/ML 1ML (SYR OR VIAL) IVP ONE (13:00)
[2023-03-04] MEDS ORDERED: fentaNYL INJ 100 MCG/2 ML AMP IVP ONE (13:00)
[2023-03-04] MEDS ORDERED: MEPERIDINE (DEMEROL) INJ 50 MG/ML IVP ONE (13:00)
[2023-03-04] MEDS ORDERED: ceFAZolin INJECTION 2,000 MG in NS (IVPB) 50 ML IV SCH (14:00)
[2023-03-04] MEDS: ONDANSETRON 4 MG/2 ML (SDV) Z0FRAN IVP SCH ×4 (14:26→23:37)
[2023-03-04] MEDS: morphine INJ 4 MG/ML 1 ML (VIAL/SYRINGE) IVP PRN ×2 (14:40→16:25)
[2023-03-04] MEDS: METOCLOPRAMIDE INJ 10 MG/2 ML (REGLAN) IVP SCH ×3 (16:24→23:37)
[2023-03-04] MEDS: RT-ALBUTEROL SULF 2.5 MG/3 ML PRE-MIX VIAL INH SCH ×2 (16:26→22:07)
[2023-03-04] MEDS: fentaNYL INJ 100 MCG/2 ML AMP IVP PRN ×3 (18:37→23:42)
[2023-03-04] MEDS ORDERED: MELATONIN 3 MG TABLET PO SCH (21:45)
[2023-03-04] MEDS: ceFAZolin INJECTION 2,000 MG in NS (IVPB) 50 ML IV SCH (23:37)
[2023-03-04] MEDS: metroNIDAZOLE 500MG/100ML IVPB 100 ML IV SCH (23:37)
[2023-03-05] VITALS: BP 98/59
[2023-03-05] MEDS: LACTATED RINGERS 1,000 ML IV SCH ×3 (00:25→08:34)
[2023-03-05 04:00] VITALS: BP 104/58
[2023-03-05] MEDS: fentaNYL INJ 100 MCG/2 ML AMP IVP PRN ×4 (04:35→12:22)
[2023-03-05] MEDS: METOCLOPRAMIDE INJ 10 MG/2 ML (REGLAN) IVP SCH (05:05)
[2023-03-05 06:17] LABS: HEMATOCRIT 39 % (35-52); HEMOGLOBIN 13.4 g/dL (11.5-16.0); MEAN CORPUSCULAR HEMOGLOBIN 31 pg (25-34); MEAN CORPUSCULAR HGB CONC 35 g/dL (32-36); MEAN CORPUSCULAR VOLUME 90 fL (80-99); MEAN PLATELET VOLUME 10.8 fL (9.0-12.2); PLATELET COUNT 213 10^3/uL (130-400); WHITE BLOOD COUNT 9.9 10^3/uL (4.3-11.0)
[2023-03-05] MEDS: RT-ALBUTEROL SULF 2.5 MG/3 ML PRE-MIX VIAL INH SCH (06:54)
--- NOTE | 2023-03-05 07:33 | Anesthesia-General Post-Op ---
General Patient Condition Mental Status/LOC: Same as Preop Cardiovascular: Satisfactory Nausea/Vomiting: Absent Respiratory: Satisfactory Pain: Controlled Complications: Absent Post Op Complications Complications None Follow Up Care/Instructions Patient Instructions None needed. Anesthesia/Patient Condition Patient Condition Patient is doing well, no complaints, stable vital signs, no apparent adverse anesthesia problems. No complications reported per nursing. D/C home per [facility] Criteria: Yes CECILE GOLD CRNA Mar 05, 2023 07:33
[2023-03-05 07:35] VITALS: BP 114/63
[2023-03-05] MEDS: ceFAZolin INJECTION 2,000 MG in NS (IVPB) 50 ML IV SCH (08:34)
[2023-03-05] MEDS: metroNIDAZOLE 500MG/100ML IVPB 100 ML IV SCH (08:35)
[2023-03-05] MEDS ORDERED: PANTOPRAZOLE 40 MG (PROTONIX) VIAL IV SCH (09:00)
[2023-03-05] MEDS ORDERED: SENNA W/DOCUSATE (SENOKOT S) TABLET PO SCH (09:00)
[2023-03-05] MEDS ORDERED: FLUT9.9S NSEACH (09:41)
[2023-03-05] MEDS ORDERED: CHOL-34 PO (09:41)
[2023-03-05] MEDS ORDERED: ACHD5005 PO (09:41)
[2023-03-05] MEDS ORDERED: CYAN-41 PO (09:41)
[2023-03-05] MEDS ORDERED: LACT1CAP62 PO (09:41)
--- NOTE | 2023-03-05 10:53 | Progress Note ---
Subjective Date Seen by a Provider: Mar 05, 2023 Time Seen by a Provider: 10:30 Subjective/Events-last exam doing well. tolerating clears without any difficulty. taking PO meds well. ambulating. Objective Exam Vital Signs Date Time Temp Pulse Resp B/P (MAP) Pulse Ox O2 Delivery O2 Flow Rate FiO2 03/05/23 08:23 Room Air 03/05/23 07:35 36.6 74 18 114/63 (80) Room Air 03/05/23 06:56 97 Room Air 03/05/23 04:00 36.8 69 20 104/58 (73) 97 Room Air 03/05/23 00:00 36.8 71 20 98/59 (72) 98 Room Air 03/04/23 22:07 94 Room Air 03/04/23 20:00 Room Air 03/04/23 19:30 36.4 65 20 110/68 (82) 98 Room Air 03/04/23 19:11 99 21 03/04/23 16:37 36.6 60 18 122/65 (84) 97 Room Air 03/04/23 15:05 Room Air 95.00 03/04/23 13:35 36.3 17 118/69 (85) 98 Room Air 03/04/23 13:35 Room Air 03/04/23 13:30 Room Air 03/04/23 13:30 12 117/67 (84) 97 Room Air 03/04/23 13:20 10 129/71 (90) 95 Room Air 03/04/23 13:15 Room Air 03/04/23 13:10 36.3 18 114/70 (85) 95 Room Air 03/04/23 13:00 8 110/68 (82) 95 Room Air 03/04/23 12:59 Room Air 03/04/23 12:50 19 108/51 (70) 100 OxyMask 8.00 03/04/23 12:43 OxyMask 8.00 03/04/23 12:43 36.1 16 117/73 (88) 99 OxyMask 8.00 I & O 03/05/23 07:00 Intake Total 3970 ml Balance 3970 ml Capillary Refill : Less Than 3 Seconds General Appearance: No Apparent Distress HEENT: PERRL/EOMI Neck: Full Range of Motion Respiratory: Chest Non Tender, Wheezing Cardiovascular: Regular Rate, Rhythm Gastrointestinal: normal bowel sounds, soft, tenderness, other (incisions clean/dry) Extremity: Normal Capillary Refill Neurologic/Psychiatric: Alert, Oriented x3 Skin: Normal Color Lymphatic: No Adenopathy Results Lab Laboratory Tests 03/05/23 06:08: White Blood Count 9.9, Red Blood Count 4.27, Hemoglobin 13.4, Hematocrit 39, Mean Corpuscular Volume 90, Mean Corpuscular Hemoglobin 31, Mean Corpuscular Hemoglobin Concent 35, Red Cell Distribution Width 11.9, Platelet Count 213, Mean Platelet Volume 10.8 Assessment/Plan Assessment/Plan Assess & Plan/Chief Complaint sx GERD with hiatal hernia s/p laparoscpic HH repair and partial fundopilication. OG MAXWELL MD Mar 05, 2023 10:52
[2023-03-05] MEDS ORDERED: METOCLOPRAMIDE INJ 10 MG/2 ML (REGLAN) IVP PRN (11:00)
[2023-03-05] MEDS ORDERED: ONDANSETRON 4 MG/2 ML (SDV) Z0FRAN IVP PRN (11:00)
[2023-03-05 11:21] VITALS: BP 115/62
--- NOTE | 2023-03-11 22:29 | OPERATIVE REPORT ---
DATE OF SERVICE: 03/04/2023 ATTENDING PRIMARY CARE PHYSICIAN: Dr. Bobby Alas. PREOPERATIVE DIAGNOSES: Symptomatic hiatal hernia with a persistent gastroesophageal reflux disease and regurgitation. POSTOPERATIVE DIAGNOSES: Symptomatic hiatal hernia with a persistent gastroesophageal reflux disease and regurgitation. PROCEDURE: Laparoscopic hiatal hernia repair and posterior 275-degree Toupet wrap. SURGEON: René Porter MD FORMING ROLL OPERATOR HEAVY DUTY: Ronnell Leal APRN ANESTHESIA: General endotracheal. ESTIMATED BLOOD LOSS: Minimal. FINDINGS: Hiatal hernia moderate in size, approximately 3 cm. DISPOSITION: The patient tolerated the procedure well. INDICATIONS: The patient is a 43-year-old female known to us. She has a past history of dysphagia and on 11/02/2019 underwent an EGD and was found to have a distal esophageal stricture and underwent balloon dilatation. She was also found to have a moderate hiatal hernia approximately 3 cm in size. Biopsies were negative for H. pylori as well as negative for Jacob's esophagus. The patient also had developed some crampy abdominal pain in 09/[address] scan as well as eventually an MRI and was found to have a lesion of the head of the pancreas approximately 2.5 to 1.5 cm in size. She was referred to Gastroenterology and underwent an endoscopic ultrasound where a multiseptated cyst of the pancreatic neck 2.5 x 1.8 cm was identified. There was no communication with the main pancreatic duct. She underwent an ultrasound-guided aspiration where 0.6 mL of serous fluid was removed and sent for analysis and molecular testing showed no oncogenic point mutation, more consistent with an inflammatory pseudocyst or a serous cystadenoma and completely benign. The patient continued to have issues with reflux and regurgitation however, on 01/13/2023, underwent another EGD and was found to have reflux esophagitis, [place] grade B as well as again the moderate size hiatal hernia 3 cm in size. The patient continue to take her PPI acid reducers as well as the necessary lifestyle and dietary accommodation including small and more frequent meals, avoidance of eating at night as well as head elevation while lying supine. She also continues to take her PPI acid reducers on a b.i.d. basis and avoid caffeinated beverages, spicy, greasy and acidic foods. However, despite this, continued to have reflux symptoms and regurgitation. We then scheduled her for an esophageal manometry study, which did not show an intra-abdominal GE junction length of 1.5 cm consistent with a hiatal hernia and an overall length of 2.7 cm. A 56% of swallows were normal and 44% were ineffective and due to these findings, it was recommended to proceed with looser hiatal hernia as well loose antireflux procedure being a posterior 275-degree Toupet wrap. DESCRIPTION OF PROCEDURE: The patient was brought to the operating room, laid supine on the table. After adequate IV pain and sedative medications and general endotracheal intubation, the abdomen was prepped and draped in standard surgical fashion. A 0.5% Marcaine with epinephrine was used to anesthetize the overlying skin in the left upper abdominal quadrant and a transverse skin incision made using a #15 blade. An 0 silk suture was applied to the medial aspect of the incision for retraction and a Veress needle inserted with a low opening pressure of 0 mmHg and the abdomen was then insufflated to 15 mmHg pressure. The Veress needle removed and a 5 mm trocar placed followed by a 5 mm 45-degree angle laparoscope visualized the peritoneal cavity. A 4-quadrant abdominal exploration was performed. The liver and omentum as well as stomach appeared normal. Once the liver retractor was placed, a hiatal hernia approximately 3 cm in size was identified. Under direct visualization, we then proceeded to place a midabdominal left of midline 10 mm port was placed after the skin and peritoneal lining were anesthetized using 0.5% Marcaine with epinephrine and a transverse skin incision made using a #15 blade. In a similar manner midabdominal right of midline 10 mm port was placed followed by a right upper abdominal quadrant 5 mm port. The epigastric region was then anesthetized and a tract created through the abdominal wall layers using a trocar to a 5 mm port and through this opening, a medium-sized Tk liver retractor was placed and the left lobe of the liver retracted anteriorly and superiorly. The patient was then placed in steep reverse Trendelenburg position. We then proceeded with dissection of the hiatal hernia sac, starting at the pars flaccida on the right side using the Sonicision. We then proceeded to take down the phrenoesophageal ligament anteriorly and towards the left and posteriorly identifying and dissecting out the right and left rich of the diaphragm. Good hemostasis was observed. We then proceeded to take down the short gastric vessels as well as to take down the angle of His connective tissue fibers using the Sonicision. Before first suture was placed, the GE junction was easily brought down with adequate length into the peritoneal cavity without any tension. A 38 Greek ViSiGi gastric tube was then placed under direct visualization. Using this as a rough guide of closure of the hiatal hernia as well as a loose wrap, we then proceeded to close the esophageal hiatus very loosely around the esophagus using interrupted 2-0 Surgidac sutures using the EndoStitch device approximating the left and right rich of the diaphragm. We then proceeded with our antireflux procedure, which was a posterior 270-degree Toupet wrap. The right portion was then sutured to the esophagus, stomach, and to the right lateral portion of the diaphragm using 2-0 Surgidac suture. The left portion of the stomach was then sutured in a similar manner encompassing the stomach, esophagus as well as the left anterior portion of the diaphragm. We then proceeded to create a row of sutures encompassing the esophagus and the stomach bilaterally using interrupted 3-0 Surgidac sutures to a length of the wrap of approximately 2.5 cm with visualization of good hemostasis. The gastric tube was then removed. The liver retractor was then removed and the fascia and peritoneum to the 10 mm port sites were then closed under direct visualization using a Juan R-Jered device and an 0 Vicryl suture. The abdomen was then desufflated and the remaining ports were removed. All skin incisions were closed using 4-0 Monocryl running subcuticular sutures. Wounds were then cleaned and covered with Dermabond. The patient tolerated the procedure well. We will admit her 23-hour observation and proceed with a phase 1 clear liquid diet as well as pain control with a WELDER METAL FAB pump. We will also proceed with DVT prophylaxis with calf SCDs, early ambulation as well as Lovenox injections. Tomorrow morning when she is tolerating at least 60 mL of clear liquids every 30 minutes is ambulating well and has adequate pain control with oral pain medication, we will discharge her home where she will be instructed to continue with a phase 1 clear liquid diet for the next 5 days, then proceed with a mechanical soft diet for 5 days and then a regular diet; however, hold off on carbonated beverages, large amounts of leafy greens like salads and large amounts of raw vegetables as well as dry bread and crackers until 6 weeks from the surgery date. Job ID: [id number] DocumentID: [id number] Dictated Date: 03/11/2023 16:00:50 Manager Rehab Date: 03/11/2023 22:27:00 Dictated By: RENÉ PORTER MD [facility]
== END 2023-03-05 12:37 | disposition home or self-care (01) ==
LOC: SDC 09:47 → EDSTATUS 13:15 → 4TH 14:54 → SDC 03-05 12:37
PROVIDERS: ATTEND Surgery
DX: K44.9 Diaphragmatic hernia without obstruction or gangrene (principal); K21.00 Gastro-esophageal reflux disease with esophagitis, without bleeding; Z79.899 Other long term (current) drug therapy; Z87.891 Personal history of nicotine dependence
CPT/HCPCS: 36415; 85027; 87081; 94640; 94664; 94760

== ENCOUNTER 2023-05-31 11:08 | Observation (INO) | payer MEDICARE ==
[~2023-05-31] VITALS: Ht 165.1 cm; Wt 75.0 kg
[~2023-05-31 11:08] MED LIST changes: +CHOL-34 PO; +CYAN-41 PO; +FLUT9.9S NSEACH; +HYDR118S10 PO; +LACT1CAP62 PO
[2023-05-31 11:57] LABS: BASOPHILS # (AUTO) 0.1 10^3/uL (0.0-0.1); BASOPHILS % (AUTO) 0 % (0-10); EOSINOPHILS % (AUTO) 0 % (0-10); HEMATOCRIT 44 % (35-52); HEMOGLOBIN 14.5 g/dL (11.5-16.0); LYMPHOCYTES # (AUTO) 1.5 10^3/uL (1.0-4.0); LYMPHOCYTES % (AUTO) 13 % (12-44); MEAN CORPUSCULAR HEMOGLOBIN 31 pg (25-34); MEAN CORPUSCULAR HGB CONC 33 g/dL (32-36); MEAN CORPUSCULAR VOLUME 94 fL (80-99); MEAN PLATELET VOLUME 10.5 fL (9.0-12.2); MONOCYTES # (AUTO) 1.1 10^3/uL (0.0-1.0); MONOCYTES % (AUTO) 10 % (0-12); NEUTROPHILS # (AUTO) 8.6 10^3/uL (1.8-7.8); NEUTROPHILS % (AUTO) 76 % (42-75); PLATELET COUNT 274 10^3/uL (130-400); WHITE BLOOD COUNT 11.3 10^3/uL (4.3-11.0)
--- NOTE | 2023-05-31 11:59 | ED Abdominal Pain ---
General Chief Complaint: Abdominal/GI Problems Stated Complaint: VOMITING | ABD PAIN |RECTAL BLEEDING | POST OP 03/09 Nursing Triage Note: pt states she had a hiatal hernia surgery beginning of march. began to have nausea at 1630 yesterday. States her zofran and phenergan at home are not working. no actual emesis. states she has had bright red blood in her stool, hx of hemorrhoids. Source of Information: Patient Exam Limitations: No Limitations History of Present Illness Date Seen by Provider: May 31, 2023 Time Seen by Provider: 11:30 Initial Comments 43-year-old female presents to the ER with complaint of nausea since yesterday. She had hiatal hernia surgery at the beginning of March, so she is unable to vomit. She reports she has been dry heaving. She reports that last week she had left upper quadrant abdominal pain, she was seen by Dr. Porter, surgery, and given prescriptions for Flagyl and ciprofloxacin. She reports she still has abdominal pain across her entire upper abdomen. She has taken her Zofran and Phenergan which have not helped. She states she called Dr. Porter's office who told her to come in to get evaluated and have imaging completed. She reports she has been having fevers, as high as 101. She also reports blood in her stool, states that she has a history of hemorrhoids. Reports that the blood has been bright red, but did have a large clot that was dark in color yesterday. She reports that this morning she woke up with bleeding, states it looked like she had a menstrual cycle. States she has had a total hysterectomy. She believes that the blood came from her rectum. She denies diarrhea and dysuria. Last bowel movement was 45 minutes prior to arrival, reports bright red blood in her stool. Denies black tarry stool. Allergies and Home Medications Allergies Coded Allergies: lamotrigine (Verified Allergy, Severe, RASH, 02/25/23) clindamycin (Verified Allergy, Unknown, RASH, 02/25/23) latex (Unverified Allergy, Unknown, RASH, 02/25/23) nortriptyline (Verified Allergy, Unknown, NIGHT TERRORS, 02/25/23) Patient Home Medication List Home Medication List Reviewed: Yes Albuterol Sulfate (Ventolin Hfa) 1 Puff Puff, 2 PUFF INH Q4H PRN for SHORTNESS OF BREATH, (Reported) Entered as Reported by: CHANDU RAMÍREZ on 02/25/23 1110 Baclofen (Baclofen) 10 Mg Tablet, 10 MG PO DAILY PRN for PAIN-BREAKTHROUGH, (Reported) Entered as Reported by: BRYANNA SHER on 01/13/23 135 Cholecalciferol (Vitamin D3) (Vitamin D3) 25 Mcg (1000 Unit) Tablet, 25 MCG PO DAILY, (Reported) Entered as Reported by: RADHA MAY on 03/05/23 09 Clonazepam (Clonazepam) 0.5 Mg Tablet, 0.25-0.5 MG PO BID PRN for ANXIETY, (Reported) Entered as Reported by: BRYANNA SHER on 01/13/23 135 Cyanocobalamin (Vitamin B-12) (Vitamin B-12) 1,000 Mcg Tablet, 1,000 MCG PO DAILY, (Reported) Entered as Reported by: RADHA MAY on 03/05/23 09 Estradiol (Estrace Tablet) 1 Mg Tablet, 1 MG PO HS, (Reported) Entered as Reported by: BRYANNA SHER on 01/13/23 135 Fluticasone Propionate (Flonase Allergy Relief) 50 Mcg/Actuation [place].susp, 1-2 SPRAY NSEACH DAILY, (Reported) Entered as Reported by: RADHA MAY on 03/05/23 09 Fluvoxamine Maleate (Fluvoxamine Maleate) 100 Mg Tablet, 100 MG PO HS, (Reported) Entered as Reported by: CHANDU RAMÍREZ on 02/25/23 1110 Gabapentin (Gabapentin) 600 Mg Tablet, 600 MG PO TID, (Reported) Entered as Reported by: BRYANNA SHER on 01/13/23 135 Hydrocodone/Acetaminophen (Hydrocodone-Acetamn 7.5-325/15) 7.5 Mg-325 Mg/15 Ml Solution, 15 ML PO Q4H PRN for PAIN BREAKTROUGH Prescribed by: TAYLOR STREETER on 03/04/23 1011 Hydrocodone/Acetaminophen (Hydrocodone-Acetamin 5-325 mg) 5 Mg-325 Mg Tablet, 1- 2 EA PO TID PRN for PAIN-MODERATE (5-7), (Reported) Entered as Reported by: RADHA MAY on 03/05/23 0941 Lactobacillus Acidophilus (Probiotic) 10 Billion Cell Capsule, 1 EACH PO DAILY, (Reported) Entered as Reported by: RADHA MAY on 03/05/23 0941 Levothyroxine Sodium (Levothyroxine Sodium) 175 Mcg Tablet, 175 MCG PO DAILY, (Reported) Entered as Reported by: BRYANNA SHER on 01/13/23 1354 Meclizine HCl (Meclizine HCl) 25 Mg Tablet, 25 MG PO BID PRN for DIZZINESS, (Reported) Entered as Reported by: CHANDU RAMÍREZ on 02/25/23 1110 Multivitamin (Multivitamin) 1 Each Tablet, 1 EACH PO DAILY, (Reported) Entered as Reported by: CHANDU RAMÍREZ on 02/25/23 1110 Ondansetron (Ondansetron Odt) 4 Mg Tab.rapdis, 4 MG SL Q4H PRN for NAUSEA/VOMITING Prescribed by: TAYLOR STREETER on 03/04/23 1011 Pantoprazole Sodium (Pantoprazole Sodium) 40 Mg Tablet.dr, 40 MG PO BID, (Reported) Entered as Reported by: BRYANNA SHER on 01/13/23 1354 Promethazine HCl (Promethazine Tablet) 25 Mg Tablet, 25 MG PO Q6H PRN for NAUSEA/VOMITING, (Reported) Entered as Reported by: CHANDU RAMÍREZ on 02/25/23 1110 Review of Systems Review of Systems Constitutional: see HPI Past [place]of[place]-Cjwgvo-Enwbyk Hx Patient Social History Tobacco Use?: Yes Tobacco type used: Cigarettes Smoking Status: Current Everyday Smoker Substance use?: No Alcohol Use?: No Pt feels they are or have been: No Immunizations Up To Date Tetanus Booster (TDap): Unknown First/Initial COVID19 Vaccinat: 2020 Second COVID19 Vaccination Shashi: 2020 Third COVID19 Vaccination Date: 09/24 Seasonal Allergies Seasonal Allergies: No Past Medical History Surgery/Hospitalization HX: APPY, GB, HYST, HYPOTHROIDISM, C-SECTIONS, D AND C X2, NECK AND BACK SURG Surgeries: Yes (LUMBAR DISCECTOMY, CERVICAL LAMINECTOMY, URINARY DILITATION (1999)) Adenoidectomy, Appendectomy, Section, Gallbladder, Hysterectomy, Tonsillectomy Respiratory: Yes (SOA FROM ALLERGIES/SICK) Currently Using CPAP: No Currently Using BIPAP: No Cardiac: No Neurological: Yes (LAST SEIZURE 2009, TIA) Headaches /Migraines, Seizure Disorder, TIA Reproductive Disorders: Yes (ENDOMETRIOSIS) Female Reproductive Disorders: Menstrual Problems, Endometriosis 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 History: Hysterectomy Sexually Transmitted Disease: No Genitourinary: Yes (URINARY INCONTINENCE, URINARY RETENTION IN 1999) Bladder Infection, UTI-Chronic Gastrointestinal: Yes (gastritis) Colitis, Gastroesophageal Reflux, Gastrointestinal Bleed, Hemorrhoids, Pancreatitis, Hiatal Hernia Musculoskeletal: Yes (SPINAL STENOSIS WITH NEUROPATHY) Degenerate Disk Disease, Chronic Back Pain Endocrine: Yes Hypothyroidsim HEENT: Yes (THROAT ELONGATED) Cancer: No Psychosocial: Yes Anxiety, Depression Integumentary: No Blood Disorders: Yes (ANEMIA PRIOR TO HYSTERECTOMY, NO PROBLEMS SINCE) Adverse Reaction/Blood Tranf: No (2010 11 PRBC'S) Family Medical History No Pertinent Family Hx Physical Exam Vital Signs Vital Signs - First Documented 05/31/23 11:28 Temp 37.2 Pulse 62 Resp 19 B/P (MAP) 124/75 (91) Pulse Ox 100 O2 Delivery Room Air Capillary Refill : Less Than 3 Seconds Height/Weight/BMI Height: 5'5.00" Weight: 206lbs. 0.0oz. 93.929852fq; 27.00 BMI Method:Stated General Appearance: WD/WN, mild distress Neck: supple, normal inspection Respiratory: lungs clear, normal breath sounds, no respiratory distress, no accessory muscle use Cardiovascular: regular rate, rhythm Gastrointestinal: normal bowel sounds, soft, guarding (Upper abdomen and right lower quadrant), tenderness (Upper abdomen and right lower quadrant) Rectal: heme positive stool, hemorrhoids Extremities: normal range of motion, normal inspection Neurologic/Psychiatric: alert, normal mood/affect Skin: normal color, warm/dry Progress/Results/Core Measures Results/Orders Lab Results Laboratory Tests Test 05/31/23 11:50 05/31/23 12:00 Range/Units White Blood Count 11.3 H 4.3-11.0 10^3/uL Red Blood Count 4.69 3.80-5.11 10^6/uL Hemoglobin 14.5 11.5-16.0 g/dL Hematocrit 44 35-52 % Mean Corpuscular Volume 94 80-99 fL Mean Corpuscular Hemoglobin 31 25-34 pg Mean Corpuscular Hemoglobin Concent 33 32-36 g/dL Red Cell Distribution Width 11.9 10.0-14.5 % Platelet Count 274 130-400 10^3/uL Mean Platelet Volume 10.5 9.0-12.2 fL Immature Granulocyte % (Auto) 0 % Neutrophils (%) (Auto) 76 H 42-75 % Lymphocytes (%) (Auto) 13 12-44 % Monocytes (%) (Auto) 10 0-12 % Eosinophils (%) (Auto) 0 0-10 % Basophils (%) (Auto) 0 0-10 % Neutrophils # (Auto) 8.6 H 1.8-7.8 10^3/uL Lymphocytes # (Auto) 1.5 1.0-4.0 10^3/uL Monocytes # (Auto) 1.1 H 0.0-1.0 10^3/uL Eosinophils # (Auto) 0.0 0.0-0.3 10^3/uL Basophils # (Auto) 0.1 0.0-0.1 10^3/uL Immature Granulocyte # (Auto) 0.0 0.0-0.1 10^3/uL Sodium Level 139 135-145 MMOL/L Potassium Level 4.2 3.6-5.0 MMOL/L Chloride Level 107 98-107 MMOL/L Carbon Dioxide Level 19 L 21-32 MMOL/L Anion Gap 13 5-14 MMOL/L Blood Urea Nitrogen 25 H 7-18 MG/DL Creatinine 3.82 H 0.60-1.30 MG/DL Estimat Glomerular Filtration Rate 14 BUN/Creatinine Ratio 7 Glucose Level 96 70-105 MG/DL Calcium Level 9.2 8.5-10.1 MG/DL Corrected Calcium 9.0 8.5-10.1 MG/DL Total Bilirubin 0.8 0.1-1.0 MG/DL Aspartate Amino Transf (AST/SGOT) 38 H 5-34 U/L Alanine Aminotransferase (ALT/SGPT) 35 0-55 U/L Alkaline Phosphatase 84 40-136 U/L Total Protein 7.2 6.4-8.2 GM/DL Albumin 4.3 3.2-4.5 GM/DL Lipase 73 8-78 U/L Influenza Type A (RT-PCR) Not Detected Not Detecte Influenza Type B (RT-PCR) Not Detected Not Detecte SARS-CoV-2 RNA (RT-PCR) Not Detected Not Detecte My Patrick Nguyen - EARLE SHELLEY APRN Comprehensive Metabolic Panel (05/31/23 11:51) Lipase (05/31/23 11:51) Ed Iv/Invasive Line Start (05/31/23 11:51) Cbc With Automated Diff (05/31/23 11:51) Ondansetron Injection (Ondansetron Inj (05/31/23 12:00) Ns Iv 1000 Ml (Ns Iv 1000 Ml) (05/31/23 12:00) Covid 19 Inhouse Test (05/31/23 11:59) Influenza A And B By Pcr (05/31/23 11:59) Ua Culture If Indicated (05/31/23 12:13) Ns Iv 1000 Ml (Ns Iv 1000 Ml) (05/31/23 13:00) Ct Abdomen/Pelvis Wo (05/31/23 12:57) Fentanyl Injection (Fentanyl Injection (05/31/23 13:00) Promethazine Injection (Promethazine I (05/31/23 14:15) Fentanyl Injection (Fentanyl Injection (05/31/23 15:00) Fecal Occult Bedside (05/31/23 14:54) Pantoprazole Injection (Pantoprazole Inj (05/31/23 15:15) Ed Admission (Communication) (05/31/23 15:12) Medications Given in ED Current Medications Medications Dose Ordered Sig/[place] Route Start Time Stop Time Status Last Admin Dose Admin Fentanyl Citrate 50 mcg ONCE ONCE IVP 05/31/23 13:00 05/31/23 13:01 DC 05/31/23 13:27 50 MCG Fentanyl Citrate 75 mcg ONCE ONCE IVP 05/31/23 15:00 05/31/23 15:01 DC 05/31/23 15:53 75 MCG Ondansetron HCl 4 mg ONCE ONCE IVP 05/31/23 12:00 05/31/23 12:01 DC 05/31/23 12:00 4 MG Pantoprazole 40 mg ONCE ONCE IV 05/31/23 15:15 05/31/23 15:16 DC 05/31/23 15:53 40 MG Promethazine HCl 25 mg ONCE ONCE IVP 05/31/23 14:15 05/31/23 14:16 DC 05/31/23 14:21 25 MG Vital Signs/I&O 05/31/23 05/31/23 11:28 13:27 Temp 37.2 36.4 Pulse 62 Resp 19 B/P (MAP) 124/75 (91) Pulse Ox 100 O2 Delivery Room Air Blood Pressure Mean: 91 Progress Progress Note : Progress Note Patient seen and evaluated, sitting in bed, mild distress. Based on exam and symptoms, work-up initiated including CBC, CMP, lipase, UA, CT abdomen pelvis, COVID, flu swab. Fluids and Zofran ordered. 1408 patient reported improvement in nausea after Zofran, but now reports worsening nausea again. Phenergan ordered. Labs reviewed. CBC shows slightly elevated WBC 11.3. CMP shows slightly decreased CO2 19, BUN elevated 25, creatinine elevated 3.82, GFR low 14. These have significantly changed since previous labs completed in September 2022. COVID and flu negative. CT without contrast completed, it shows trace free fluid within the pelvis, possibly physiologic. No loculated fluid collection or free air. Otherwise no acute abnormalities. Will perform fecal occult when patient's nausea has improved. Patient will need admission due to acute kidney injury. Results and plan of care discussed with patient. Patient reported to me at this time that she had another bloody bowel movement. Reports that the stool was also dark in color. She also showed me bloody tissue paper from when she used the restroom. Small amount of bright red on the tissue paper. 1505 fecal occult positive. I called and spoke with Dr. Porter. I informed him that I believe the Cipro may have caused her acute kidney injury. He states we can discontinue the antibiotics since there is no diverticulitis on her CT. He recommends treatment with Protonix twice daily. 1510: Spoke with Dr. Brower, [facility] hospitalist, regarding admission. She agrees to admit patient. She would like me to place admission orders. Departure Communication (Admissions) Time/Spoke to Admitting Phy: 15:10 Dr. Brower, see progress note. Time/Spoke to Consulting Phy: 15:05 Dr. Porter, surgery, see progress note. Impression Primary Impression: Acute kidney injury Disposition: ADMITTED INPATIENT Condition: Stable Admissions Decision to Admit Reason: Admit from ER (General) Decision to Admit/Date: May 31, 2023 Time/Decision to Admit Time: 14:08 Departure-Patient Inst. 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
[2023-05-31] MEDS ORDERED: NS IV 1000 ML 1,000 ML IV SCH ×2 (12:00→13:00)
[2023-05-31] MEDS ORDERED: ONDANSETRON INJECTION 4 MG/2 ML (SDV) IVP ONE (12:00)
[2023-05-31] MEDS ORDERED: HOLD METFORMIN - RECEIVED CONTRAST 20 ML VIAL IV SCH (12:00)
[2023-05-31] MEDS ORDERED: IOHEXOL 350 MG/ML 100 ML (OMNIPAQUE 350) VIAL IV ONE (12:00)
[2023-05-31] MEDS ORDERED: NS 100 ML (IVPB) BAG IV ONE (12:00)
[2023-05-31 12:06] LABS: ALBUMIN 4.3 GM/DL (3.2-4.5); POTASSIUM 4.2 MMOL/L (3.6-5.0)
[2023-05-31 12:07] LABS: CALCIUM 9.2 MG/DL (8.5-10.1)
[2023-05-31 12:09] LABS: TOTAL PROTEIN 7.2 GM/DL (6.4-8.2)
[2023-05-31 12:11] LABS: BILIRUBIN,TOTAL 0.8 MG/DL (0.1-1.0)
[2023-05-31 12:33] LABS: CREATININE SERUM 3.82 MG/DL (0.60-1.30)
[2023-05-31] MEDS ORDERED: fentaNYL INJECTION 100 MCG/2 ML VIAL IVP ONE ×2 (13:00→15:00)
--- NOTE | 2023-05-31 14:04 | Diagnostic Imaging Report ---
PROCEDURE: CT abdomen and pelvis without contrast. TECHNIQUE: Multiple contiguous axial images were obtained through the abdomen and pelvis without the use of intravenous contrast. Auto Exposure Controls were utilized during the CT exam to meet ALARA standards for radiation dose reduction. INDICATION: Upper abdominal pain. History of previous hiatal hernia repair. COMPARISON: 07/04/2021. FINDINGS: Included portions of the lung bases are clear. CT ABDOMEN: Small bowel loops are nondilated. Normal appendix cannot be adequately identified, but appears to be surgically absent. The kidneys, adrenal glands, spleen, pancreas, and liver have an unremarkable noncontrast CT appearance. There is no loculated fluid collection, free fluid, or free air within the abdomen. No abnormal mesenteric or retroperitoneal adenopathy is seen. Osseous structures show no acute abnormalities. CT PELVIS: Urinary bladder is unopacified and essentially decompressed. No calculi are seen within the urinary bladder. There is trace free fluid within the pelvis. There is no loculated fluid collection nor free air. No abnormal lymph nodes are identified. Osseous structures show no acute abnormalities. IMPRESSION: 1. Trace free fluid within the pelvis; possibly physiologic. 2. Otherwise, no acute abnormalities seen within the abdomen or pelvis. Dictated by: Dictated on workstation # [id number]
[2023-05-31] MEDS ORDERED: PROMETHAZINE INJ 25 MG/ML VIAL IVP ONE (14:15)
[2023-05-31] MEDS ORDERED: PANTOPRAZOLE INJECTION 40 MG VIAL IV ONE (15:15)
[2023-05-31] MEDS ORDERED: diphenhydrAMINE 25 MG TABLET PO PRN (19:00)
[2023-05-31] MEDS ORDERED: diphenhydrAMINE INJ 50 MG/ML VIAL IV PRN (19:00)
[2023-05-31] MEDS ORDERED: morphine INJ 4 MG/ML 1 ML (VIAL/SYRINGE) IV PRN (19:00)
[2023-05-31] MEDS: fentaNYL INJECTION 100 MCG/2 ML VIAL IV PRN ×2 (19:01→21:06)
[2023-05-31] MEDS: ONDANSETRON INJECTION 4 MG/2 ML (SDV) IV PRN (19:02)
[2023-05-31] MEDS: NS IV 1000 ML 1,000 ML IV SCH (19:02)
[2023-05-31 20:01] VITALS: BP 112/63
[2023-05-31] MEDS: PROMETHAZINE INJ 25 MG/ML VIAL IV PRN (20:28)
[2023-05-31] MEDS: PANTOPRAZOLE INJECTION 40 MG VIAL IV SCH (20:28)
[2023-05-31 23:57] VITALS: BP 101/56
[2023-06-01] MEDS: ONDANSETRON INJECTION 4 MG/2 ML (SDV) IV PRN ×6 (00:04→22:48)
[2023-06-01] MEDS: PROMETHAZINE INJ 25 MG/ML VIAL IV PRN ×3 (03:04→17:36)
[2023-06-01] MEDS: NS IV 1000 ML 1,000 ML IV SCH ×3 (03:20→17:40)
[2023-06-01 03:21] VITALS: BP 121/67
[2023-06-01] MEDS: fentaNYL INJECTION 100 MCG/2 ML VIAL IV PRN ×7 (03:39→23:56)
[2023-06-01 06:03] LABS: BASOPHILS # (AUTO) 0.1 10^3/uL (0.0-0.1); BASOPHILS % (AUTO) 1 % (0-10); EOSINOPHILS # (AUTO) 0.1 10^3/uL (0.0-0.3); EOSINOPHILS % (AUTO) 1 % (0-10); HEMATOCRIT 41 % (35-52); HEMOGLOBIN 13.3 g/dL (11.5-16.0); LYMPHOCYTES # (AUTO) 2.2 10^3/uL (1.0-4.0); LYMPHOCYTES % (AUTO) 23 % (12-44); MEAN CORPUSCULAR HEMOGLOBIN 31 pg (25-34); MEAN CORPUSCULAR HGB CONC 33 g/dL (32-36); MEAN CORPUSCULAR VOLUME 94 fL (80-99); MEAN PLATELET VOLUME 10.8 fL (9.0-12.2); MONOCYTES # (AUTO) 0.9 10^3/uL (0.0-1.0); MONOCYTES % (AUTO) 10 % (0-12); NEUTROPHILS # (AUTO) 6.4 10^3/uL (1.8-7.8); NEUTROPHILS % (AUTO) 66 % (42-75); PLATELET COUNT 241 10^3/uL (130-400); WHITE BLOOD COUNT 9.7 10^3/uL (4.3-11.0)
[2023-06-01 06:17] LABS: POTASSIUM 3.9 MMOL/L (3.6-5.0)
[2023-06-01 06:18] LABS: CALCIUM 8.5 MG/DL (8.5-10.1)
[2023-06-01 06:23] LABS: CREATININE SERUM 3.77 MG/DL (0.60-1.30)
[2023-06-01] MEDS: PROCHLORPERAZINE 10 MG TABLET PO PRN ×2 (07:38→13:43)
[2023-06-01] MEDS: PANTOPRAZOLE INJECTION 40 MG VIAL IV SCH ×2 (07:39→20:16)
[2023-06-01 08:04] VITALS: BP 113/73
[2023-06-01 11:27] VITALS: BP 122/75
[2023-06-01] MEDS ORDERED: METR-145 PO (11:28)
[2023-06-01] MEDS ORDERED: ESTR1TAB24 PO (11:28)
[2023-06-01] MEDS ORDERED: TIZA-186 PO (11:28)
[2023-06-01] MEDS ORDERED: GBPN600T PO (11:28)
[2023-06-01] MEDS ORDERED: CIPR500T5 PO (11:28)
[2023-06-01] MEDS ORDERED: DULO60CA59 PO (11:28)
[2023-06-01] MEDS ORDERED: ONDA4TAB11 SL (11:28)
[2023-06-01] MEDS ORDERED: LEVO150T6 PO (11:28)
[2023-06-01] MEDS ORDERED: FURO20TA4 PO (11:28)
[2023-06-01 16:23] VITALS: BP 128/79
--- NOTE | 2023-06-01 17:02 | History & Physical ---
HPI History of Present Illness: 43 yo F with recent h/o hiatal hernia repair 03/09/23 that presents with N/V and possible rectal bleeding. States that she has been having N/V for about a week. She has not been able to keep anything down including fluids. She has been dry heaving constantly. States that her stools have been different in the last few days and she is not sure if she had any rectal bleeding or if it was vaginally. She has had hysterectomy in the past. Source: patient Exam Limitations: no limitations Date seen by provider: Jun 01, 2023 Time Seen by Provider: 10:15 Attending Physician Lurdes Stephenson Aprn PCP Admitting Physician: Андрей Brower MD Attending Physician: Андрей Brower MD Consult Date of Admission May 31, 2023 at 15:51 Home Medications Home Medications Reviewed patient Home Medication Reconciliation performed by pharmacy medication reconciliations mobile sales technician and/or nursing. Patients Allergies have been reviewed. Allergies Coded Allergies: lamotrigine (Verified Allergy, Severe, RASH, 02/25/23) clindamycin (Verified Allergy, Unknown, RASH, 02/25/23) latex (Unverified Allergy, Unknown, RASH, 02/25/23) nortriptyline (Verified Allergy, Unknown, NIGHT TERRORS, 02/25/23) OJX-Wlomyw-Oflanw Hx Patient Social History Smoking Status: Current Everyday Smoker 2nd Hand Smoke Exposure: No Recent Hopitalizations: Yes Alcohol Use?: No Tobacco type used: Cigarettes Immunizations Up To Date Tetanus Booster (TDap): Unknown First/Initial COVID19 Vaccinat: 2020 Second COVID19 Vaccination Shashi: 2020 Third COVID19 Vaccination Date: 09/24 Past Medical History Hiatal hernia repair 03/2023 Family Medical History Significant Family History: No Pertinent Family Hx Review of Systems ([facility]) Constitutional: No chills, No fever; malaise EENTM: no symptoms reported Respiratory: no symptoms reported; No cough, No dyspnea on exertion, No short of breath Cardiovascular: no symptoms reported; No chest pain, No edema, No palpitations Gastrointestinal: abdominal pain, loss of appetite, nausea; No vomiting Genitourinary: no symptoms reported; No dysuria, No frequency, No hematuria : No Musculoskeletal: no symptoms reported Skin: no symptoms reported Psychiatric/Neurological: No Symptoms Reported Reviewed Test Results Reviewed Test Results Lab Laboratory Tests Test 06/01/23 05:28 Range/Units White Blood Count 9.7 4.3-11.0 10^3/uL Red Blood Count 4.34 3.80-5.11 10^6/uL Hemoglobin 13.3 11.5-16.0 g/dL Hematocrit 41 35-52 % Mean Corpuscular Volume 94 80-99 fL Mean Corpuscular Hemoglobin 31 25-34 pg Mean Corpuscular Hemoglobin Concent 33 32-36 g/dL Red Cell Distribution Width 11.9 10.0-14.5 % Platelet Count 241 130-400 10^3/uL Mean Platelet Volume 10.8 9.0-12.2 fL Immature Granulocyte % (Auto) 0 % Neutrophils (%) (Auto) 66 42-75 % Lymphocytes (%) (Auto) 23 12-44 % Monocytes (%) (Auto) 10 0-12 % Eosinophils (%) (Auto) 1 0-10 % Basophils (%) (Auto) 1 0-10 % Neutrophils # (Auto) 6.4 1.8-7.8 10^3/uL Lymphocytes # (Auto) 2.2 1.0-4.0 10^3/uL Monocytes # (Auto) 0.9 0.0-1.0 10^3/uL Eosinophils # (Auto) 0.1 0.0-0.3 10^3/uL Basophils # (Auto) 0.1 0.0-0.1 10^3/uL Immature Granulocyte # (Auto) 0.0 0.0-0.1 10^3/uL Sodium Level 141 135-145 MMOL/L Potassium Level 3.9 3.6-5.0 MMOL/L Chloride Level 112 H 98-107 MMOL/L Carbon Dioxide Level 17 L 21-32 MMOL/L Anion Gap 12 5-14 MMOL/L Blood Urea Nitrogen 28 H 7-18 MG/DL Creatinine 3.77 H 0.60-1.30 MG/DL Estimat Glomerular Filtration Rate 15 BUN/Creatinine Ratio 7 Glucose Level 67 L 70-105 MG/DL Calcium Level 8.5 8.5-10.1 MG/DL Physical Exam-([facility]) Physical Exam Vital Signs VS - Last 72 Hours, by Label 05/31/23 05/31/23 05/31/23 05/31/23 11:28 13:27 16:05 16:27 Temp 37.2 36.4 Pulse 62 Resp 19 B/P (MAP) 124/75 (91) 107/68 Pulse Ox 100 O2 Delivery Room Air Room Air 05/31/23 05/31/23 05/31/23 06/01/23 20:00 20:01 23:57 03:21 Temp 36.9 37.1 36.5 Pulse 54 60 55 Resp 20 16 16 B/P (MAP) 112/63 (79) 101/56 (71) 121/67 (85) Pulse Ox 100 100 97 98 O2 Delivery Room Air Room Air Room Air Room Air 06/01/23 06/01/23 06/01/23 06/01/23 08:00 08:04 11:27 16:23 Temp 36.8 37.1 36.8 Pulse 63 56 53 Resp 14 14 20 B/P (MAP) 113/73 (86) 122/75 (91) 128/79 (95) Pulse Ox 98 99 97 O2 Delivery Room Air Room Air Room Air Room Air Capillary Refill : Less Than 3 Seconds General Appearance: WD/WN, no apparent distress HEENT: PERRL/EOMI Neck: non-tender, full range of motion, supple Respiratory: chest non-tender, lungs clear, normal breath sounds, no respiratory distress, no accessory muscle use Cardiovascular: normal peripheral pulses, regular rate, rhythm, no edema, no murmur Gastrointestinal: soft; No distended, No guarding, No rebound; tenderness (+ epigastric ttp) Back: no CVA tenderness, no vertebral tenderness Extremities: normal range of motion, non-tender, normal inspection, no pedal edema, no calf tenderness 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 tested, alert, oriented x 3 Skin: normal color, warm/dry Lymphatic: no adenopathy Assessment/Plan Assessment/Plan Admission Status: Observation (1) Acute kidney failure Status: Acute Assessment & Plan: - Likely 2/2 dehydration, continue IVFs, repeat CMP in AM, oral challenge when patient is ready (2) Abdominal pain Status: Acute Qualifiers: Qualified Codes: R10.13 - Epigastric pain (3) Occult blood positive stool Status: Acute Assessment & Plan: - Will need outpatient workup with Kido, Hgb stable (4) Hiatal hernia Status: Chronic Assessment & Plan: - S/p Repair 03/09/23 (5) Nausea Status: Acute АНДРЕЙ BROWER MD Jun 01, 2023 17:02
[2023-06-01] MEDS ORDERED: clonazePAM 0.5 MG TABLET PO PRN (17:15)
--- NOTE | 2023-06-01 17:15 | Progress Note-Pre Operative ---
Pre-Operative Progress Note Date of Available H&P: Jun 01, 2023 Date H&P Reviewed: Jun 01, 2023 Time H&P Reviewed: 16:00 History & Physical: No changes noted Pre-Operative Diagnosis: dysphagia, regurgitation OG MAXWELL MD Jun 01, 2023 17:15
[2023-06-01] MEDS ORDERED: HYDR-3817 PO (17:48)
--- NOTE | 2023-06-01 17:48 | Discharge Inst-Surgical ---
D/C Lap Instructions-ALISSA New, Converted, or Re-Newed RX: RX on Chart Follow Up Appt in 2 weeks Activity as tolerated No driving for 24 hours No [address] while on pain medications Incentive Spirometry use every 2 hours while awake Regular Diet Symptoms to Report: Fever over 101 degree F, Nausea/Vomiting Infection Signs and Symptoms to report: Increased redness, Foul odor of wound, Increased drainage Bathing instructions: May shower Operative Area Clean/Dry; Keep incision clean/dry If any problems/questions: Contact your physician or go to Emergency Room OG MAXWELL MD Jun 01, 2023 17:48
--- NOTE | 2023-06-01 18:19 | CONSULTATION REPORT ---
DATE OF SERVICE: 06/01/2023 ATTENDING INSULATION INSPECTOR: Lurdes Stephenson APRN ADMITTING PHYSICIAN: Dr. Shanita Brower. HISTORY OF PRESENT ILLNESS: The patient is a 43-year-old female known to us. She had a longstanding history of gastroesophageal reflux disease, which was symptomatic and we had tried multiple medical modalities as well as the necessary lifestyle and dietary accommodation. However, she continued to have symptoms, which were significant enough to impair normal life functioning. In early March, she underwent a laparoscopic hiatal hernia repair as well as a posterior 270-degree Toupet wrap. She did well after the surgery and was discharged home the following day. She states that after the surgery. She had done well for approximately 2 months; however, in the past few weeks, she has had issues with what sounds to be dysphagia. She reports that she has crampy abdominal pain while eating meal as well as regurgitation. The patient states that liquids do go down okay; however, slowly. She does state that some types of solids will cause a substernal pressure sensation and either a cause what she describes as dry heaving and some regurgitation of undigested food or reduce on its own. This again sounds to be more consistent with dysphagia and the formation of scar tissue at the area of the hiatal hernia repair and antireflux procedure. Her gallbladder was removed 15 years ago. PAST MEDICAL HISTORY: Gastroesophageal reflux disease, hiatal hernia, peptic ulcer disease, history of pancreatic cyst, neuropathy, spinal stenosis, anxiety, hypothyroid, history of a TIA 2009, seizure disorder, cardiovascular disease. PAST SURGICAL HISTORY: Tonsillectomy, appendectomy, cholecystectomy, dilatation and curettage x2, total hysterectomy, L4-L5 laminectomy, C6-C7 diskectomy, laparoscopic hiatal hernia repair and posterior 270-degree Toupet repair. ALLERGIES: LATEX, LAMICTAL, CLINDAMYCIN, NORTRIPTYLINE. MEDICATIONS: Albuterol inhaler 2 puffs q.4 hours p.r.n., baclofen 10 mg p.r.n., clonazepam 0.5 mg b.i.d. p.r.n., estradiol 1 mg daily, fluticasone 50 mcg spray daily, fluvoxamine 100 mg daily, gabapentin 600 mg t.i.d., hydrocodone 7.5/325 mg q.4 hours p.r.n., levothyroxine 175 mcg daily, meclizine 25 mg b.i.d., Zofran p.r.n., Protonix 40 mg b.i.d., promethazine 25 mg every 6 hours p.r.n. SOCIAL HISTORY: Previous smoke. She states that she quit before her antireflux procedure. Negative alcohol. No caffeinated beverages. FAMILY HISTORY: Noncontributory. VITAL SIGNS: Temperature 36.8, blood pressure 128/79, pulse 53, respirations 20, pulse ox 97% on room air. REVIEW OF SYSTEMS: Well-nourished female, currently in no acute distress. She is not experiencing shortness of breath or difficulty breathing. No chest pain, palpitations, diaphoresis. For the past 2 weeks, she has had episodes of difficulty swallowing with substernal pressure sensation, which would also involve the back of her throat and then this would induce dry heaving sensation and she would either regurgitate to undigested food or this would reduce on its own, more likely consistent with dysphagia. She does not recall eating a full meal and then having episodes of nausea and then dry heaving after this. She does not report any hematemesis, no coffee-ground emesis. She also does not report any major issues with diarrhea, nor constipation as well as no red blood per rectum, nor any dark tarry stools. No fever, chills and states that she has lost some weight since her hiatal hernia repair surgery. All other review of systems negative. PHYSICAL EXAMINATION: CHEST: Few scattered rhonchi bilaterally. HEART: Regular. No murmurs. EXTREMITIES: No lower extremity edema. Negative Homans sign. HEENT: No scleral icterus. No cervical lymphadenopathy. ABDOMEN: Soft, nondistended with mild discomfort in the epigastric region upon deep palpation. No hernias. SKIN: Warm, dry. LABORATORY DATA: WBC 9.7, hemoglobin 13.3, hematocrit 41, platelets 241, BUN [ ], creatinine 3.77. ASSESSMENT AND PLAN: A 43-year-old female with dysphagia causing her to have dehydration and prerenal azotemia and related renal failure. The patient is receiving IV hydration as well as a PPI acid reducers on a b.i.d. basis. We feel that since her hiatal hernia repair and antireflux procedure with a posterior 300 270 45-degree posterior Toupet wrap. She has developed some scar tissue, which is contributing to her dysphagia, we will schedule her for an EGD, biopsies as appropriate as well as a possible balloon dilatation if a stricture is identified. We will also continue with IV hydration and once a procedure done start a clear liquid diet and advance as tolerated. She is already on Protonix 40 mg daily; however, if there are signs of too much acid production, we will then also add another PPI acid butcher assistant. Job ID: [id number] DocumentID: [id number] Dictated Date: 06/01/2023 17:46:32 Cue Selector Date: 06/01/2023 18:17:00 Dictated By: OG MAXWELL MD MTDD
[2023-06-01 20:02] VITALS: BP 114/72
[2023-06-01] MEDS: DULoxetine 30 MG CAPSULE PO SCH (20:16)
[2023-06-01] MEDS ORDERED: NON-FORMULARY MEDICATION 1 EA EA (Duloxetine HCl 60 MG) PO SCH (21:00)
[2023-06-01 23:56] VITALS: BP 162/88
[2023-06-02] MEDS: PROMETHAZINE INJ 25 MG/ML VIAL IV PRN ×2 (00:19→17:11)
[2023-06-02] MEDS: fentaNYL INJECTION 100 MCG/2 ML VIAL IV PRN ×6 (03:20→20:22)
[2023-06-02] MEDS: NS IV 1000 ML 1,000 ML IV SCH ×3 (03:20→20:22)
[2023-06-02] MEDS: ONDANSETRON INJECTION 4 MG/2 ML (SDV) IV PRN ×4 (03:20→20:21)
[2023-06-02 03:59] VITALS: BP 137/77
[2023-06-02] MEDS: LEVOTHYROXINE 150 MCG TABLET PO SCH (05:24)
[2023-06-02 05:50] LABS: BASOPHILS % (AUTO) 0 % (0-10); EOSINOPHILS % (AUTO) 0 % (0-10); HEMATOCRIT 36 % (35-52); HEMOGLOBIN 12.3 g/dL (11.5-16.0); LYMPHOCYTES # (AUTO) 1.1 10^3/uL (1.0-4.0); LYMPHOCYTES % (AUTO) 16 % (12-44); MEAN CORPUSCULAR HEMOGLOBIN 31 pg (25-34); MEAN CORPUSCULAR HGB CONC 34 g/dL (32-36); MEAN CORPUSCULAR VOLUME 91 fL (80-99); MONOCYTES # (AUTO) 0.5 10^3/uL (0.0-1.0); MONOCYTES % (AUTO) 7 % (0-12); NEUTROPHILS # (AUTO) 5.1 10^3/uL (1.8-7.8); NEUTROPHILS % (AUTO) 76 % (42-75); PLATELET COUNT 217 10^3/uL (130-400); WHITE BLOOD COUNT 6.7 10^3/uL (4.3-11.0)
[2023-06-02 06:17] LABS: ALBUMIN 3.6 GM/DL (3.2-4.5); BILIRUBIN,TOTAL 0.6 MG/DL (0.1-1.0); CALCIUM 8.1 MG/DL (8.5-10.1); CREATININE SERUM 2.57 MG/DL (0.60-1.30); POTASSIUM 3.9 MMOL/L (3.6-5.0); TOTAL PROTEIN 5.6 GM/DL (6.4-8.2)
[2023-06-02 08:01] VITALS: BP 143/91
[2023-06-02] MEDS: PANTOPRAZOLE INJECTION 40 MG VIAL IV SCH ×2 (08:22→20:21)
[2023-06-02 11:44] VITALS: BP 164/91
[2023-06-02] MEDS ORDERED: LACTATED RINGERS 1,000 ML 1,000 ML IV STA (14:00)
[2023-06-02] MEDS ORDERED: LIDOCAINE JELLY 2% 6 ML SYRINGE MM PRN (14:00)
[2023-06-02] MEDS ORDERED: HURRICAINE EXT TUBE (BENZOCAINE) XX PRN (14:00)
[2023-06-02] MEDS ORDERED: LIDOCAINE JELLY 2% 6 ML SYRINGE ONE (14:05)
[2023-06-02] MEDS ORDERED: MIDAZOLAM INJ 2 MG/2 ML VIAL ONE (14:36)
[2023-06-02 15:32] VITALS: BP 127/69
--- NOTE | 2023-06-02 15:37 | Anesthesia-General Post-Op ---
MAC Patient Condition Mental Status/LOC: Same as Preop Cardiovascular: Satisfactory Nausea/Vomiting: Absent Respiratory: Satisfactory Pain: Controlled Complications: Absent Post Op Complications Complications None Follow Up Care/Instructions Patient Instructions None needed. Anesthesiology Discharge Order Discharge Order Patient is doing well, no complaints, stable vital signs, no apparent adverse anesthesia problems. No complications reported per nursing. ROSA TUCKER CRNA Jun 02, 2023 15:37
--- NOTE | 2023-06-02 16:09 | OPERATIVE REPORT ---
DATE OF SERVICE: 06/02/2023 ATTENDING PRIMARY CARE PHYSICIAN: Lurdes Solomon APRN PREOPERATIVE DIAGNOSES: Dysphagia, regurgitation and nausea. POSTOPERATIVE DIAGNOSES: Reflux esophagitis, [place] grade B, mild distal esophageal stricture, no recurrent hiatal hernia, moderate gastritis, no distal obstructions. PROCEDURE: EGD with biopsy and balloon dilatation. SURGEON: Og Maxwell M.D. ANESTHESIA: Monitored anesthesia care. ESTIMATED BLOOD LOSS: Minimal. FINDINGS: Reflux esophagitis, [place] grade B, mild distal esophageal stricture, no recurrent hiatal hernia, moderate gastritis, no distal obstructions. DISPOSITION: The patient tolerated the procedure well. INDICATIONS FOR PROCEDURE: The patient is a 43-year-old female known to us. She has a longstanding history of gastroesophageal reflux disease as well as a history of a hiatal hernia. We had tried multiple medical modalities with a b.i.d. PPI acid reducers as well as the necessary lifestyle and dietary accommodation including small and more frequent meals, avoidance of eating at night as well as head elevation while lying supine. We also had recommended avoidance of caffeinated beverages, spicy, greasy and acidic foods. Despite maximal medical therapy, she continued to have symptoms. Approximately 8 weeks ago, she underwent a hiatal hernia repair as well as a loose antireflux wrap procedure, which encompassed a 270-degree posterior Toupet wrap. The patient did well after surgery and was sent home the following day. She states that in the past few weeks, she has developed some what sounds to be dysphagia. She reports taking in a food bolus and then will feel epigastric pressure sensation as well as in the substernal region and this will cause a feeling of discomfort and eventually this would regurgitate up. She does not report any hematemesis, no coffee-ground emesis. She is currently on Protonix 40 mg daily. She states that after the surgery. She was able to eat solids and drink liquids without any difficulty. This most likely represents formation of scar tissue after the hiatal hernia repair as well as an antireflux procedure and a mild stricture. DESCRIPTION OF PROCEDURE: The patient was brought to the endoscopy suite and laid in the left lateral decubitus position. After adequate IV pain and sedative medications and monitored anesthesia care, the mouthpiece was applied. The endoscope was placed in the mouth, visualizing the pharynx and hypopharyngeal region. Vocal cords, epiglottis and vallecula identified and appeared to be normal. The endoscope was gently intubated to the esophageal opening and esophagus insufflated. The endoscope was advanced through the first, second, third portions of esophagus at the level of GE junction and reflux esophagitis, [place] grade B identified. There was also a mild distal esophageal stricture. A biopsy was taken with the forceps with visualization of good hemostasis. The endoscope was then advanced into the stomach and endoscope retroflexed visualizing no recurrent hiatal hernia with intact previous hiatal hernia repair and antireflux procedure. A moderate gastritis was noted more towards the stomach antrum. No formal ulcers, polyps, or any neoplasms. A biopsy was taken of the antrum to rule out H. pylori with visualization of good hemostasis. The endoscope was then advanced to the pylorus and the first and second portion of the duodenum, which appeared normal with no distal obstructions. The balloon was then placed in the stomach and pulled back to the area of the stricture. We then proceeded with dilatation in a graded stepwise fashion from 2, 3, 4, then eventually 5 atmospheres of pressure with 60 seconds in between. Once we reached 5 atmospheres of pressure or approximately 19.5 mm in luminal diameter, we left this in place for 120 seconds. The balloon was then desufflated and removed with visualization of good hemostasis as well as no mucosal tears. The endoscope was slowly withdrawn while taking a second look and suctioning of residual air with no additional findings. The patient tolerated the procedure well. We feel that this is a known issue after a hiatal hernia repair as well as an antireflux procedure and we will recommend the necessary lifestyle and dietary accommodation including small and more frequent meals, avoidance of eating at night as well as head elevation while lying supine. She is currently on Protonix 40 mg daily; however, we will also start omeprazole 40 mg daily to be taken at a separate time during the day. In these events post-surgery there could be some more scar tissue formation over time and if she does have recurrent episodes, we will proceed with a graded repeat dilatation to a goal of 20 mm in luminal diameter and maintaining this in hopes of preventing these episodes of regurgitation. We will have her follow in 6 weeks. Job ID: [id number] DocumentID: [id number] Dictated Date: 06/02/2023 15:40:18 Adjunct Instructor In Economics Date: 06/02/2023 16:07:00 Dictated By: OG MAXWELL MD
--- NOTE | 2023-06-02 16:10 | Progress Note-Post Operative ---
Post-Operative Progess Note Surgeon (s)/Cabin Crew (s) Surgeon OG MAXWELL MD Cabin Crew: none Pre-Operative Diagnosis dysphagia, regurgitation Post-Operative Diagnosis reflux esophagitis(grade B), mild dist esoph stricture from post-surgical changes, intact HH repair and toupet wrap, moderate gastritis, no distal obstructions. Procedure & Operative Findings Date of Procedure 06/02/23 Procedure Performed/Findings EGD with bx and balloon dilatation. Anesthesia Type mac Estimated Blood Loss Estimated blood loss (mL): minimal Specimens/Packing Specimens Removed ge jxn, antrum OG MAXWELL MD Jun 02, 2023 16:10
[2023-06-02] MEDS ORDERED: OMEP40CA6 PO (16:11)
[2023-06-02 16:16] VITALS: BP 167/79
--- NOTE | 2023-06-02 16:54 | Progress Note ---
Subjective Subjective/Events-last exam Patient NPO ready for procedure today. States that she is still having nausea. Pain well controlled Review of Systems General: No Fatigue Pulmonary: No Dyspnea, No Cough Cardiovascular: No: Chest Pain, Palpitations, Edema Gastrointestinal: Nausea, Abdominal Pain; No: Vomiting, Diarrhea, Constipation Neurological: No: Weakness, Incoordination Objective Exam Last Set of Vital Signs Vital Signs Date Time Temp Pulse Resp B/P (MAP) Pulse Ox O2 Delivery O2 Flow Rate FiO2 06/02/23 16:16 36.3 47 18 167/79 (108) 98 Room Air Capillary Refill : Less Than 3 Seconds I&O Intake and Output 06/02/23 00:00 Intake Total 940 ml Output Total 600 ml Balance 340 ml Intake Oral 940 ml Output Urine Total 600 ml # [place] 2 General: Alert, Oriented X3 HEENT: Mucous Memb Moist/[place] Neck: Supple, No Thyromegaly Lungs: Clear to Auscultation, Normal Air Movement Heart: Regular Rate, No Murmurs Abdomen: Soft, Other (+ epigastic ttp, no rebound or gaurding) Extremities: No Edema, No Tenderness/Swelling Neuro: Normal Speech Results/Procedures Lab Laboratory Tests 06/02/23 05:12: White Blood Count 6.7, Red Blood Count 3.96, Hemoglobin 12.3, Hematocrit 36, Mean Corpuscular Volume 91, Mean Corpuscular Hemoglobin 31, Mean Corpuscular Hemoglobin Concent 34, Red Cell Distribution Width 11.9, Platelet Count 217, Mean Platelet Volume 11.0, Immature Granulocyte % (Auto) 0, Neutrophils (%) (Auto) 76H, Lymphocytes (%) (Auto) 16, Monocytes (%) (Auto) 7, Eosinophils (%) (Auto) 0, Basophils (%) (Auto) 0, Neutrophils # (Auto) 5.1, Lymphocytes # (Auto) 1.1, Monocytes # (Auto) 0.5, Eosinophils # (Auto) 0.0, Basophils # (Auto) 0.0, Immature Granulocyte # (Auto) 0.0, Sodium Level 141, Potassium Level 3.9, Chloride Level 115H, Carbon Dioxide Level 15L, Anion Gap 11, Blood Urea Nitrogen 24H, Creatinine 2.57#H, Estimat Glomerular Filtration Rate 23, BUN/Creatinine Ratio 9, Glucose Level 91, Calcium Level 8.1L, Corrected Calcium 8.4L, Total Bilirubin 0.6, Aspartate Amino Transf (AST/SGOT) 17, Alanine Aminotransferase (ALT/SGPT) 25, Alkaline Phosphatase 72, Total Protein 5.6L, Albumin 3.6 Microbiology 06/01/23 MRSA Screen - Final, Complete MRSA not isolated Assessment/Plan Assessment/Plan (1) Acute kidney failure Status: Acute Assessment & Plan: - Likely 2/2 dehydration, continue IVFs, repeat CMP in AM, oral challenge when patient is ready 06/02: Improving but still elevated, IVFs, patient NPO for procedure (2) Abdominal pain Status: Acute Qualifiers: Qualified Codes: R10.13 - Epigastric pain (3) Occult blood positive stool Status: Acute Assessment & Plan: - Will need outpatient workup with K[facility], Hgb stable (4) Hiatal hernia Status: Chronic Assessment & Plan: - S/p Repair 03/09/23 (5) Nausea Status: Acute АНДРЕЙ AVILA MD Jun 02, 2023 16:54
[2023-06-02] MEDS: PROCHLORPERAZINE 10 MG TABLET PO PRN (18:02)
[2023-06-02] MEDS: ACETAMINOPHEN 500 MG TABLET PO PRN (18:36)
[2023-06-02 19:57] VITALS: BP 146/84
[2023-06-02] MEDS: DULoxetine 30 MG CAPSULE PO SCH (20:22)
[2023-06-03 00:03] VITALS: BP 121/68
[2023-06-03] MEDS: fentaNYL INJECTION 100 MCG/2 ML VIAL IV PRN ×3 (00:03→07:40)
[2023-06-03] MEDS: NS IV 1000 ML 1,000 ML IV SCH (02:54)
[2023-06-03 04:56] VITALS: BP 141/75
[2023-06-03] MEDS: LEVOTHYROXINE 150 MCG TABLET PO SCH (05:36)
[2023-06-03 05:38] LABS: CREATININE SERUM 1.44 MG/DL (0.60-1.30); POTASSIUM 3.6 MMOL/L (3.6-5.0)
[2023-06-03] MEDS: ONDANSETRON INJECTION 4 MG/2 ML (SDV) IV PRN (05:59)
[2023-06-03] MEDS: PROMETHAZINE INJ 25 MG/ML VIAL IV PRN (07:40)
[2023-06-03] MEDS: ACETAMINOPHEN 500 MG TABLET PO PRN (07:40)
[2023-06-03 08:37] VITALS: BP 134/82
[2023-06-03] MEDS ORDERED: HYDROcodone/ACETAMINOPHEN 7.5 MG/325 MG TABLET PO PRN (09:30)
[2023-06-03] MEDS ORDERED: ONDANSETRON 4 MG ORAL DISSOLVE TABLET PO PRN (09:30)
[2023-06-03] MEDS ORDERED: PANTOPRAZOLE 40 MG TABLET PO SCH (10:00)
--- NOTE | 2023-06-03 11:04 | Discharge Summary ---
Diagnosis/Chief Complaint Date of Admission May 31, 2023 at 15:51 Date of Discharge 06/03/23 Admission Diagnosis Admission Diagnosis See problem list Discharge Diagnosis See below Problems/Diagnosis: (1) Acute kidney failure Assessment & Plan: - Likely 2/2 dehydration, continue IVFs, repeat CMP in AM, oral challenge when patient is ready 06/02: Improving but still elevated, IVFs, patient NPO for procedure 06/03: Improving, will need f.u labs next week, continue to push oral hydration Status: Acute (2) Abdominal pain Qualifiers: Qualified Codes: R10.13 - Epigastric pain Status: Acute (3) Occult blood positive stool Assessment & Plan: - Will need outpatient workup with Kido, Hgb stable Status: Acute (4) Hiatal hernia Assessment & Plan: - S/p Repair 03/09/2306/03: EGD with dilation yesterday, tolerating PO diet Status: Chronic (5) Nausea Status: Acute Chief Complaint/HPI Chief Complaint/HPI 43 yo F with recent h/o hiatal hernia repair 03/09/23 that presents with N/V and possible rectal bleeding. States that she has been having N/V for about a week. She has not been able to keep anything down including fluids. She has been dry heaving constantly. States that her stools have been different in the last few days and she is not sure if she had any rectal bleeding or if it was vaginally. She has had hysterectomy in the past. Discharge Summary-Simple/Stand Procedures EGD with dilation Consultations Kido: General Surgery Discharge Physical Examination Allergies: Coded Allergies: lamotrigine (Verified Allergy, Severe, RASH, 02/25/23) clindamycin (Verified Allergy, Unknown, RASH, 02/25/23) gluten (Unverified Allergy, Unknown, Diarrhea, 06/03/23) PT STATES SHE HAS CELIAC DISEASE latex (Unverified Allergy, Unknown, RASH, 02/25/23) nortriptyline (Verified Allergy, Unknown, NIGHT TERRORS, 02/25/23) Vitals & I&Os Vital Sign - Last 12Hours Date Time Temp Pulse Resp B/P (MAP) Pulse Ox O2 Delivery O2 Flow Rate FiO2 06/03/23 08:39 Room Air 06/03/23 08:37 36.6 58 18 134/82 (99) 97 Intake and Output 06/03/23 00:00 Intake Total 1500 ml Output Total 600 ml Balance 900 ml General Appearance: Alert, Oriented X3, No Acute Distress Respiratory: Clear to Auscultation, Normal Air Movement Cardiovascular: Regular Rate, No Murmurs Abdominal: Normal Bowel Sounds, Soft, No Tenderness, No Masses Extremities: No Edema, No Tenderness/Swelling Neuro: Normal Speech Hospital Course See final discharge diagnosis. Pending Labs Needs repeat BMP next week to monitor Cr improvement Discharge Condition at discharge stable Instructions to patient/family Please see electronic discharge instructions given to patient. Discharge Medications Reviewed and agree with Discharge Medication list on patient's Discharge Instruction sheet АНДРЕЙ AVILA MD Jun 03, 2023 11:04
--- NOTE | 2023-06-03 11:05 | Discharge Summary ---
Discharge [facility] Reconcile Patient Problems Problems Reviewed?: Yes Discharge Medications New, Converted or Re-Newed RX: Transmitted to Pharmacy New Medications: Hydrocodone/Acetaminophen (Hydrocodone-Acetamin 7.5-325) 7.5 Mg-325 Mg Tablet 1 EACH PO Q4H PRN for PAIN-BREAKTHROUGH, #35 TAB Omeprazole (Omeprazole) 40 Mg Capsule.dr 40 MG PO DAILY, #90 CAP Continued Medications: Albuterol Sulfate (Ventolin Hfa) 1 Puff Puff 2 PUFF INH Q4H PRN for SHORTNESS OF BREATH, EA Cholecalciferol (Vitamin D3) (Vitamin D3) 25 Mcg (1000 Unit) Tablet 25 MCG PO DAILY, TAB Ciprofloxacin HCl (Ciprofloxacin HCl) 500 Mg Tablet 500 MG PO BID, TAB FILLED 05-25-2023 #20/10 DAY SUPPLY Clonazepam (Clonazepam) 0.5 Mg Tablet 0.25-0.5 MG PO BID PRN for ANXIETY, TAB Cyanocobalamin (Vitamin B-12) (Vitamin B-12) 1,000 Mcg Tablet 1000 MCG PO DAILY, TAB Duloxetine HCl (Duloxetine HCl) 60 Mg Capsule.dr 60 MG PO HS, CAP Estradiol (Estradiol Tablet) 1 Mg Tablet 1 MG PO DAILY, TAB LAST FILLED 12-22-2022 #90/90 DAY SUPPLY Fluticasone Propionate (Flonase Allergy Relief) 50 Mcg/Actuation [place].susp 1-2 SPRAY NSEACH DAILY, EACH Furosemide (Furosemide) 20 Mg Tablet 20 MG PO DAILY PRN for FLUID RETENTION, TAB Gabapentin (Gabapentin) 600 Mg Tablet 1200 MG PO BID, TAB TAKES 2 (600MG) TABS Gabapentin (Gabapentin) 600 Mg Tablet 600 MG PO 1200, TAB Lactobacillus Acidophilus (Probiotic) 10 Billion Cell Capsule 1 EACH PO DAILY, CAP Levothyroxine Sodium (Levothyroxine Sodium) 150 Mcg Tablet 150 MCG PO DAILY, TAB Meclizine HCl (Meclizine HCl) 25 Mg Tablet 25 MG PO BID PRN for DIZZINESS, TAB Metronidazole (Metronidazole) 500 Mg Tablet 500 MG PO TID, TAB FILLED 05-25-2023 #30/10 DAY SUPPLY Multivitamin (Multivitamin) 1 Each Tablet 1 EACH PO DAILY, TAB Ondansetron (Ondansetron Odt) 4 Mg Tab.rapdis 4 MG SL Q6H PRN for NAUSEA/VOMITING-1ST LINE, TAB Pantoprazole Sodium (Pantoprazole Sodium) 40 Mg Tablet.dr 40 MG PO 1200, TAB Tizanidine HCl (Tizanidine HCl) 4 Mg Tablet 4 MG PO BID, TAB Discontinued Medications: Hydrocodone/Acetaminophen (Hydrocodone-Acetamin 5-325 mg) 5 Mg-325 Mg Tablet 1-2 EA PO TID PRN for PAIN-MODERATE (5-7), TAB АНДРЕЙ AVILA MD Jun 03, 2023 11:05
[2023-06-03 12:05] VITALS: BP 134/82
[2023-06-03 13:17] VITALS: BP 144/81
== END 2023-06-03 12:05 | disposition home or self-care (01) ==
LOC: EDUNIT# 11:08 → ER 11:10 → UNDOADMOB 15:51 → 4TH 15:51 → UNDODISOB 06-03 12:05
PROVIDERS: ADMIT Family Medicine; ATTEND Family Medicine
DX: N17.9 Acute kidney failure, unspecified (principal); K21.00 Gastro-esophageal reflux disease with esophagitis, without bleeding; K22.2 Esophageal obstruction; K29.70 Gastritis, unspecified, without bleeding; K31.89 Other diseases of stomach and duodenum; K92.1 Melena; E86.0 Dehydration; F17.210 Nicotine dependence, cigarettes, uncomplicated; Z20.822 Contact with and (suspected) exposure to COVID-19
CPT/HCPCS: 43239; 43249; 74176; 80048 ×2; 80053 ×2; 82274; 83690; 85025 ×3; 87081; 87636; 88305; 96361 ×2; 96374; 96375 ×2; 96376 ×5; 99284; G0378; 36415

== ENCOUNTER 2023-06-30 05:36 | Outpatient (CLI) | payer MEDICARE ==
[~2023-06-30] VITALS: Ht 165 cm; Wt 68.6 kg
[~2023-06-30 05:36] MED LIST changes: +CIPR500T5 PO; +DULO60CA59 PO; +ESTR1TAB24 PO; +FURO20TA4 PO; +HYDR-3817 PO; +LEVO150T6 PO; -MECL-149 PO; +MECL-291 PO; +METO5TAB75 PO; +METR-145 PO; +OMEP40CA6 PO; +TIZA-186 PO
== END 2023-07-05 16:07 | disposition home or self-care (01) ==
LOC: PREOP 05:36
PROVIDERS: ATTEND Surgery
DX: Z01.818 Encounter for other preprocedural examination (principal)

== ENCOUNTER 2023-07-07 10:59 | Day surgery (SDC) | payer MEDICARE ==
[~2023-07-07] VITALS: Ht 165 cm; Wt 68.6 kg
[2023-07-07] MEDS ORDERED: LACTATED RINGERS 1,000 ML 1,000 ML IV STA (11:04)
[2023-07-07 11:12] VITALS: BP 110/59
[2023-07-07] MEDS ORDERED: HURRICAINE EXT TUBE (BENZOCAINE) XX PRN (11:15)
[2023-07-07] MEDS ORDERED: LIDOCAINE JELLY 2% 6 ML SYRINGE MM PRN (11:15)
--- NOTE | 2023-07-07 11:36 | Progress Note-Pre Operative ---
Pre-Operative Progress Note Date of Available H&P: Jul 07, 2023 Date H&P Reviewed: Jul 07, 2023 Time H&P Reviewed: 11:00 History & Physical: No changes noted Pre-Operative Diagnosis: dysphagia OG MAXWELL MD Jul 07, 2023 11:36
[2023-07-07] MEDS ORDERED: LIDOCAINE JELLY 2% 6 ML SYRINGE ONE (11:37)
--- NOTE | 2023-07-07 11:37 | Discharge Inst-Surgical ---
D/C Lap Instructions-ALISSA Follow Up Activity as tolerated High Fiber Diet 25g or more per day Avoid Alcohol, Caffeine, Spicy [place] and Acid foods. Drink 64 fluid oz or more of fluids per day. Symptoms to Report: Fever over 101 degree F, Nausea/Vomiting If any problems/questions: Contact your physician or go to Emergency Room OG MAXWELL MD Jul 07, 2023 11:37
[2023-07-07] MEDS ORDERED: ONDANSETRON 4 MG ORAL DISSOLVE TABLET PO PRN (11:45)
[2023-07-07] MEDS ORDERED: ONDANSETRON INJECTION 4 MG/2 ML (SDV) IVP PRN (11:45)
[2023-07-07 12:21] VITALS: BP 96/53
[2023-07-07 12:25] VITALS: BP 96/53
--- NOTE | 2023-07-07 12:33 | Progress Note-Post Operative ---
Post-Operative Progess Note Surgeon (s)/Knot Picker Cloth (s) Surgeon OG MAXWELL MD Knot Picker Cloth: none Pre-Operative Diagnosis dysphagia Post-Operative Diagnosis reflux esophagitis(grade B), mild dist esoph stricture, intact HH repair and wrap, moderate gastritis, antral erosion. Procedure & Operative Findings Date of Procedure 07/07/23 Procedure Performed/Findings EGD with bx and balloon dilatation. Anesthesia Type mac Estimated Blood Loss Estimated blood loss (mL): minimal Specimens/Packing Specimens Removed ge jxn, antrum OG MAXWELL MD Jul 07, 2023 12:33
[2023-07-07 12:45] VITALS: BP 101/63
[2023-07-07 13:07] VITALS: BP 101/63
--- NOTE | 2023-07-07 13:44 | Anesthesia-General Post-Op ---
MAC Patient Condition Mental Status/LOC: Same as Preop Cardiovascular: Satisfactory Nausea/Vomiting: Absent Respiratory: Satisfactory Pain: Controlled Complications: Absent Post Op Complications Complications None Follow Up Care/Instructions Patient Instructions None needed. Anesthesiology Discharge Order Discharge Order Patient is doing well, no complaints, stable vital signs, no apparent adverse anesthesia problems. No complications reported per nursing. LUCILA C[place]AND CRNA Jul 07, 2023 13:44
--- NOTE | 2023-07-07 21:14 | OPERATIVE REPORT ---
DATE OF SERVICE: 07/07/2023 ATTENDING PRIMARY CHECK SERVICES CLERK: [facility]. PREOPERATIVE DIAGNOSES: Dysphagia, history of gastroesophageal reflux disease, peptic ulcer disease. POSTOPERATIVE DIAGNOSES: Reflux esophagitis, [place] grade B; mild distal esophageal stricture, postsurgical changes consistent with an intact previous hiatal hernia repair and antireflux procedure. Small antral ulcer. Normal duodenum. No distal obstructions. PROCEDURE: EGD with biopsy and balloon dilatation. SURGEON: Og Maxwell MD ANESTHESIA: Monitored anesthesia care. ESTIMATED BLOOD LOSS: Minimal. FINDINGS: Reflux esophagitis, [place] grade B; mild distal esophageal stricture, postsurgical changes consistent with an intact previous hiatal hernia repair and antireflux procedure. Small antral ulcer. Normal duodenum. No distal obstructions. DISPOSITION: The patient tolerated the procedure well. INDICATIONS: The patient is a 43-year-old female known to us. She has a longstanding history of gastroesophageal reflux disease and hiatal hernia. We had tried multiple medical modalities; however, she continued to have debilitating reflux and regurgitation. She underwent a hiatal hernia repair as well as a loose antireflux procedure with a 270-degree posterior Toupet wrap on 03/04/2023. She states she did well for approximately 2 months; however, then developed some issues with dysphagia for some types of foods. Her last EGD was on 06/02/2023 and she underwent a balloon dilatation. She states that after these balloon dilatation, she does feel symptomatic relief for some amount of time; however, does feel slow recurrence of the dysphagia. DESCRIPTION OF PROCEDURE: The patient was brought to the endoscopy suite and laid in the left lateral decubitus position. After adequate IV pain and sedative medications and monitored anesthesia care, the mouthpiece was applied. The endoscope was placed in the mouth, visualizing the pharynx and hypopharyngeal region. Vocal cords, epiglottis and vallecula identified and appeared to be normal. The endoscope was then gently intubated in the esophageal opening and esophagus insufflated. The endoscope was then advanced through the first, second and third portions of esophagus at the level of the GE junction. A reflux esophagitis, [place] grade B identified. There was also postsurgical changes as well as a mild distal esophageal stricture. A biopsy was taken with forceps with visualization of good hemostasis. The endoscope was then advanced in the stomach and endoscope retroflexed visualizing again intact previous hiatal hernia repair as well as an antireflux procedure. There was a moderate severity gastritis and a very small erosion versus an ulcer at the pylorus. This was small, approximately 2 mm in size. This was biopsied with forceps with visualization of good hemostasis. The endoscope was then advanced through the pylorus and the first and second portion of the duodenum, which appeared normal with no distal obstructions. The balloon was then placed in the stomach and pulled back to the area of the stricture. We then proceeded with graded dilatation from 2, 4, then eventually 6 atmospheres of pressure with 60 seconds in between and once we hit 6 atmospheres of pressure or moderate resistance or 20 mm in luminal diameter, we left the balloon in place for 120 seconds. The balloon was then desufflated and removed with visualization of good hemostasis as well as no mucosal tears. The endoscope was then slowly withdrawn while taking a second look and suctioning of residual air with no additional findings. The patient tolerated the procedure well. We will have her continue with medical management with the necessary lifestyle and dietary accommodation including small more frequent meals, chewing thoroughly and eating slowly and avoiding the foods that do cause her to have dysphagia. She also reports that she was seen and evaluated recently and was given the diagnosis of a gluten sensitivity. If this is the case, she needs to avoid all carbohydrates containing gluten protein. She also was found to have gastritis as well as a small erosion versus an ulcer and she needs to continue with PPI acid reducers on a b.i.d. basis. Job ID: [id number] DocumentID: [id number] Dictated Date: 07/07/2023 12:22:23 Systems Auditor Date: 07/07/2023 21:12:00 Dictated By: OG MAXWELL MD
== END 2023-07-07 13:07 | disposition home or self-care (01) ==
LOC: ENDO 10:59
PROVIDERS: ATTEND Surgery
DX: K21.00 Gastro-esophageal reflux disease with esophagitis, without bleeding (principal); K22.2 Esophageal obstruction; K25.9 Gastric ulcer, unspecified as acute or chronic, without hemorrhage or perforation; K29.30 Chronic superficial gastritis without bleeding; Z87.891 Personal history of nicotine dependence